=== PATIENT | male | born 1970 | race Caucasian/White ===

== ENCOUNTER → 2022-02-28 15:48 | Outpatient (CLI) | payer OTHER, SELFPAY ==
--- NOTE | ~2022-02-28 | MR_ITS ---
EXAMINATION: MR knee LT wo con DATE: 02/28/2022 16:53 INDICATION: Left knee pain. TECHNIQUE: Magnetic resonance imaging (MRI) of the left knee was performed without intravenous contra st. Sequences included axial PD-weighted FS FSE, coronal PD-weighted FSE and PD-weighted FS FSE, sagi ttal PD-weighted FSE, and sagittal T2-weighted FS FSE. COMPARISON: Left knee radiographs 02/10/2022 FINDINGS: Medial compartment: There is a complex tear involving body and posterior horn of medial meniscus with 8 mm paralabral cys t. There is shallow partial-thickness cartilage loss of tibial condyle and femoral condyle. Osteophyt es are noted. Lateral compartment: Lateral meniscus is normal. There is deep fissuring of tibial cartilage involving the central articul ar surface with mild subchondral edema-like marrow signal intensity. There is shallow partial-thickne ss cartilage loss of femoral condyle involving the central articular surface. Osteophytes are noted. Patellofemoral compartment: There is shallow partial-thickness cartilage loss of patella, worst at the medial facet. There is nic p partial thickness cartilage loss of central and medial trochlea. Ligaments and tendons: Some anterior cruciate ligament fibers are lax and less steep than Blumensaat line, consistent with t ear. Posterior cruciate ligament is normal. Medial collateral ligament is normal. There are changes o f prior sprain of fibular collateral ligament characterized by thickening and increased signal intens ity proximally. There is mild patellar tendinopathy. Fluid: There is a moderate-sized knee joint effusion. There is trace fluid in a Dupont's cyst. There is mild prepatellar and superficial infrapatellar bursitis. IMPRESSION: 1. Lax anterior cruciate ligament fibers, likely at least a partial tear. Correlate with physical exa m. 2. Moderate chondrosis of patellofemoral compartment and mild chondrosis of medial and lateral compar tments. 3. Tear of medial meniscus. 4. Moderate-sized knee joint effusion. Reviewed, dictated and finalized at location A. IMPRESSION: 1. Lax anterior cruciate ligament fibers, likely at least a partial tear. Corre late with physical exam. 2. Moderate chondrosis of patellofemoral compartment and mild chondrosis of med ial and lateral compartments. 3. Tear of medial meniscus. 4. Moderate-sized knee joint effusion.
== END ==
PROVIDERS: PCP Orthopaedic Surgery; Visit Provider Orthopaedic Surgery
DX: M71.22 Synovial cyst of popliteal space [Baker], left knee (principal); M71.562 Other bursitis, not elsewhere classified, left knee; M25.462 Effusion, left knee; S83.242A Other tear of medial meniscus, current injury, left knee, initial encounter
CPT/HCPCS: 73721

== ENCOUNTER 2022-03-17 12:07 | Outpatient (CLI) | payer OTHER, SELFPAY ==
--- NOTE | 2022-03-17 15:15 | ECG_ITS ---
Measurements Intervals [place] Rate: 73 P: 67 KS: 126 QRS: 70 QRSD: 110 T: 76 QT: 396 QTc: 439 Interpretive Statements SINUS RHYTHM NORMAL ECG NO PREVIOUS ECG AVAILABLE FOR COMPARISON Electronically Signed On 03-18-2022 16:35:25 CDT by Jay Jay Santos M.D.
== END 2022-03-17 12:08 | disposition home or self-care (01) ==
PROVIDERS: PCP Family Medicine; Visit Provider Orthopaedic Surgery
DX: Z01.810 Encounter for preprocedural cardiovascular examination (principal); E78.5 Hyperlipidemia, unspecified; I10 Essential (primary) hypertension
CPT/HCPCS: 93005

== ENCOUNTER 2022-03-22 01:06 | Day surgery (SDC) | payer OTHER, SELFPAY ==
[2022-03-16 09:30] VITALS: BMI 40.6
--- NOTE | 2022-03-16 09:31 | PC.NURSE ---
Report to the Outpatient Waiting Room, entrance under the green pavilion located off [facility], at time _1130_ on date _[id number]_. OR Time: _130pm__. - You and your visitor will be asked a series of questions to screen for COVID 19 for your protection. - Only one visitor is allowed at this time. - The patient visitor is requested to leave or wait in car when not with patient. - A mask is required within the hospital. Patients may have clear liquids (water, carbonated beverages, clear teas, apple juice) until 3 hours prior to surgery with a maximum of 20 ounces. - No food from midnight until time of surgery Take the following medications with a SIP of water the morning of surgery: None Medications to discontinue per physician ___None Date to take last dose Please no make-up, nail estonian, hairspray, perfume, deodorant, or body powder the day of surgery. No jewelry (including any body piercings) or valuables the day of surgery, leave them at home. Please take a shower or bath the night before, or the morning of, surgery with an antibacterial soap. Wear comfortable, loose fitting clothing. - Jewelry must be removed prior to entering the operating room. Rings and piercings that are not removed may be cut off. - The hospital will not accept responsibility for valuables. - Please leave all valuables, including medications, at home the day of surgery. If you are going home after surgery, a licensed driver/guide must drive you home. - NO public transportation without another adult. - We recommend that an adult stay with you for 24 hours following discharge. - We also recommend that you do not drive, make important decision, drink alcoholic beverages, or take any drugs that were not prescribed by your health care provider for at least 24 hours after your discharge time. Follow any additional instructions given to you from your surgeon. If you or anyone in your household have experienced Covid symptoms in the past week, please notify your surgeon or the nurse liaison at the phone number below for possible testing. Telephone instructions given to ___Patient and asked if any additional questions and then verbalized understanding. Patient advised to call surgeon office or pre surgery nurse liaison [phone] if any additional questions.
[2022-03-22] VITALS (7 sets, daily range): BP systolic 146–171; BP diastolic 81–110; PULSE 59–77; RESP 16–18; TEMP 36.2–36.8; O2SAT 94–100
--- NOTE | 2022-03-22 07:11 | WPDHPUPDATE1 ---
History and Physical Update Update Date/Time: 03/22/22 07:11 History and Physical has been reviewed, including an updated exam of the patient. There are NO changes in the patient's condition. Risks, benefits, and alternatives have been discussed and questions answered. Patient agrees to proceed with procedure.
[2022-03-22] MEDS: LACTATED RINGERS 1,000 ML 30 ML IV CONT (09:15)
--- NOTE | 2022-03-22 09:20 | P.PNAN_ITS ---
Anes - Initial Pre Proc Eval Procedure: Operation Date: 03/22/22 10:30 Proposed Procedures p Left Knee Arthroscopy - Leif Krishnan MD Date/Time: 03/22/22 09:20 Surgeon: Leif Krishnan MD Pre Op Diagnosis: left knee medial meniscus tear Patient Data Age: 52 Gender: M Height: 2.01 m Weight: 163.6 kg Allergies Allergy/AdvReac Type Severity Reaction Status Date / Time codeine AdvReac Unknown nightmares, Verified 03/21/22 16:46 extreme internal ear itching Home Medications Medication Instructions Recorded Confirmed Type atorvastatin 10 mg tablet 10 mg PO HS 03/16/22 03/16/22 History diclofenac sodium 75 mg 75 mg PO HS 03/16/22 03/16/22 History tablet,delayed release lisinopril 20 mg tablet 20 mg PO HS 03/16/22 03/16/22 History Patient hx anesthesia problems: other (awakens angry) Family hx anesthesia problems: none Results Review: All pre-operative results and documents have been reviewed as part of the pre- operative evaluation. FORMERLY [facility], [facility] Past Medical History Medical History HLD (hyperlipidemia) IFG (impaired fasting glucose) Polyarthralgia Rheumatoid arthritis Seasonal allergies Seizures Sleep apnea Tobacco use Vision abnormalities Surgical History Surgical History History of left knee surgery 1991-Dr. Erwin, meniscus repair, repair meniscus again by Dr. Mccloud History of right knee surgery Has had 5 surgeries total including ACL and meniscus repairs Family History Family History Other Arthritis Diabetes mellitus Hypertension Malignant neoplasm Social History Social History Smoking packs per day: 1.5 Smoking cigarettes per day: 30.0 Years smoked: 30 Smoking pack-years: 45.00 Smoking status: Current every day smoker Tobacco type: cigarettes Second hand tobacco smoke exposure: Yes Alcohol intake: current Alcohol use details: rare Substance use: current Substance use type: marijuana Living arrangements: with family Gender identity (if verbalized by the patient): Male Sexual Orientation (if Verbalized by the Patient): Straight or Heterosexual Spiritual care concerns: No Anes - Eval Final PreProcedure Day of Procedure 03/22/22 09:20 Patient weight: morbidly obese Heart: regular rate and rhythm Lungs: decreased breath sounds Airway: Mallampati scale class II Neurological: alert and oriented Last oral intake: >/= 8 hours ASA classification: III Emergent: no Anesthetic plan: proceed Anesthesia type and monitoring: general LMA and standard monitoring Results Review: All pre-operative results and documents have been reviewed as part of the pre- operative evaluation. Informed Consent: The patient's anesthetic plan and its attendant risks and benefits were discussed with the patient/family/POA. Questions were solicited and answers provided to the satisfaction of the patient/family/POA.
[2022-03-22] MEDS: CELECOXIB 200 MG CAPSULE PO (10:00)
[2022-03-22] MEDS: ACETAMINOPHEN 500 MG TABLET 1000 MG PO (10:00)
[2022-03-22] MEDS: MIDAZOLAM HCL (*CRX) 2 MG/2 ML VIAL IV PUSH (10:00)
[2022-03-22] MEDS: ceFAZolin 3 GM/D5W 100 ML 100 ML IVPB (10:23)
[2022-03-22] MEDS: fentaNYL CITRATE INJ (*CRX) 100 MCG/2 ML VIAL 25 MCG IV PUSH ×2 (12:17→12:22)
--- NOTE | 2022-03-22 12:24 | P.OP_ITS ---
Procedure Note - Detailed Date of Procedure 03/22/22 Pre-op Diagnosis left knee medial meniscus tear Post-op Diagnosis Same Procedure Performed LEFT KNEE SCOPE Surgeon Leif Krishnan MD Anesthesia General Description of Procedure PATIENT WAS TAKEN TO THE OR. LEFT LEG WAS PREPPED AND DRAPED STERILE. TROCARS WERE PLACED IN THE USUAL FASHION. CAMERA WAS INTRODUCED. THERE WAS CHONDROMALACIA TO THE PATELLA FEMORAL JOINT. THERE WAS A LOT OF SYNOVITIS IN ALL COMPARTMENTS. THE MEDIAL COMPARTMENT SHOWED CHONDROMALACIA TO THE MEDIAL FEMORAL CONDYLE. A SHAVER WAS USED TO PREFORM A CHONDROPLASTY. THERE WAS A COMPLEX MEDIAL MENISCUS TEAR. THE TEAR WAS RESECTED WITH A BITER AND A SHAVER DOWN TO A SMOOTH BASE. ABOUT 30% OF THE MENISCUS WAS REMOVED. THE ACL WAS PARTIALLY TORN BUT INTACT. THE LATERAL MENISCUS WAS NOT TORN. THE LAT COMPARTMENT HAD MINIMAL CHONDROMALACIA. CHONDROPLASTY WAS PREFORMED. A SYNOV ECTOMY WAS PREFORMED WELL. THE PATELLO FEMORAL JOINT UNDERWENT CHONDROPLASTY. THERE WAS GRADE 2 CHONDROMALACIA IN PART OF THE TROCHLEA AND PART OF THE PATELLA. SYNOVECTOMY WAS PREFORMED IN THE SUPERIOR MEDIAL COMPARTMENT. THE WOUNDS WERE APPROXIMATED WITH 4.0 NYLON. STERILE DRESSING WAS APPLIED. PATIENT WAS EXTUBATED. Estimated Blood Loss -10.0 Complications No immediate complications Condition Stable Disposition PACU
[2022-03-22] MEDS: oxyCODONE HCL (*CRX) 5 MG TAB IR PO (12:57)
== END 2022-03-22 13:50 | disposition home or self-care (01) ==
PROVIDERS: PCP Family Medicine; Visit Provider Orthopaedic Surgery
PROC: (CPT 29870; principal; 2022-03-22 10:30)
DX: M23.332 Other meniscus derangements, other medial meniscus, left knee (principal); M94.262 Chondromalacia, left knee; M25.862 Other specified joint disorders, left knee; M06.9 Rheumatoid arthritis, unspecified; E78.5 Hyperlipidemia, unspecified; F17.210 Nicotine dependence, cigarettes, uncomplicated; E66.01 Morbid (severe) obesity due to excess calories; Z68.41 Body mass index [BMI] 40.0-44.9, adult
CPT/HCPCS: 29881; 93005; A9270; J0690; J1100; J2250; J2405; J2704; J3010; J7120

== ENCOUNTER 2024-09-15 14:47 | Inpatient (IN) | payer SELFPAY ==
[2024-09-15] VITALS (52 sets, daily range): BP systolic 131–177; BP diastolic 72–121; PULSE 69–98; RESP 14–32; TEMP 36.6; O2SAT 85–100
--- NOTE | ~2024-09-15 | CT_ITS ---
EXAMINATION: CT diagnostic chest wo con DATE: 09/15/2024 17:35 INDICATION: Shortness of breath. Possible lung mass reported on 09/15/2024 portable AP chest TECHNIQUE: Computed tomography (CT) of the chest was performed without intravenous contrast. Automate d exposure control and iterative reconstruction technique were employed. Exam dose: 1075.37 mGy-cm t otal exam DLP. COMPARISON: None FINDINGS: There is prominent calcification at the first costochondral junctions, more prominent on th e right, likely accounting for the asymmetric increased density overlying the right first costal cart ilage junction on the right on the 09/15/2024 portable AP chest. Lung detail in particular is limited due to prominent respiratory motion. There are small bullae in both apical areas. There is an approximately 2 cm irregular area of hypodensity in the upper aspect of the superior segm ent of the right lower lobe, likely a calcified pulmonary granuloma. Comparison with any prior availa ble CT thorax examinations, if available anywhere, would be helpful to document stability. If not alis ilable, [address] chest follow-up is recommended. Nonspecific 5.5 mm nodular density, left upper lobe (series 4 image 52). 5 mm nodular density of the lingula (series 4 image 67) There is mild discoid atelectasis or scarring and suggestion of slight infiltrate in the lingula. No pulmonary infiltrate or consolidation is evident otherwise. No hilar or mediastinal mass lesion or lymphadenopathy. No thoracic aortic aneurysm. Normal heart size. No pericardial or pleural effusion. Normal morphology of the adrenal glands. Incidentally noted is cholelithiasis. Prominent degenerative spurring of the lower thoracic spine. No suspicious osteolytic or osteoblastic lesions are noted. IMPRESSION: Several lung opacities are noted as indicated above. Comparison with prior CT chest examination is recommended; if unavailable, [address] chest follow-up examination is recommended. Linear atelectasis or scarring and possible minimal infiltrate of lingula Cholelithiasis Reviewed, dictated and finalized at [facility]. Reviewed, dictated and finalized at [facility]. SPECIALIST IMPRESSION: Several lung opacities are noted as indicated above. Comparison with prior CT chest examination is recommended; if unavailable, [address] chest follow-up examination is recommended. Linear atelectasis or scarring and possible minimal infiltrate of lingula Cholelithiasis
--- NOTE | ~2024-09-15 | XR_ITS ---
EXAMINATION: XR chest 1V portable DATE: 09/19/2024 06:14 INDICATION: Pneumonia. TECHNIQUE: A single frontal view of the chest was obtained on 2 radiographs. COMPARISON: Chest single view 09/15/2024, chest CT 09/15/2024 FINDINGS: There is a 2 cm nodule in superior segment right lower lobe. No pleural effusion or pneumot horax. The heart size is normal. IMPRESSION: 1. 2 cm nodule in superior segment right lower lobe suspicious for primary bronchogenic carcinoma. No ncontrast low-dose chest CT is recommended in 1-3 months. Reviewed, dictated and finalized at [facility]. L FLOW COORDINATOR IMPRESSION: 1. 2 cm nodule in superior segment right lower lobe suspicious for primary bron chogenic carcinoma. Noncontrast low-dose chest CT is recommended in 1-3 months.
--- NOTE | ~2024-09-15 | XR_ITS ---
XR chest 1V portable DATE: 09/15/2024 15:31 INDICATION: Shortness of breath TECHNIQUE: Portable upright AP views on 09/15/2024 at 1521 1522 hours COMPARISON: None FINDINGS: Heart size is normal. No hilar or mediastinal enlargement. There is some asymmetric density in the right apical area prominent first costicartilage indication, but underlying pulmonary mass le josey is not excluded. PA and lateral chest radiographs are recommended, if not possible, consider CT thorax. Otherwise no pulmonary infiltrate or consolidation, pleural effusion or pulmonary congestion or pneum othorax is detected. No hilar or mediastinal enlargement. IMPRESSION: Asymmetric increased density overlying right apical area; this might represent asymmetric prominent right first costal cartilage calcification, but underlying pulmonary mass density is not e xcluded. Recommend PA and lateral chest radiographs or CT thorax Reviewed, dictated and finalized at [facility]. R HELPER IMPRESSION: Asymmetric increased density overlying right apical area; this migh t represent asymmetric prominent right first costal cartilage calcification, bu t underlying pulmonary mass density is not excluded. Recommend PA and lateral c hest radiographs or CT thorax
--- NOTE | 2024-09-15 15:11 | ECG_ITS ---
Test Date: 2024-09-15 15:13:12 Measurements Intervals [place] Rate: 96 P: 75 OH: 150 QRS: 59 QRSD: 94 T: 74 QT: 339 QTc: 430 Interpretive Statements SINUS RHYTHM POSSIBLE LEFT ATRIAL ENLARGEMENT [-0.1mV P WAVE IN V1/V2] No previous ECG available for comparison Electronically Signed On 09-15-2024 18:40:39 PRODUCTION WELDER by Sofia Terrell M.D.
[2024-09-15 15:27] LABS: Basophils Absolute Auto 0.1 K/mm3 (0.0-0.1); Basophils Percent Auto 0.6 % (0.2-1.2); Eosinophils Absolute Auto 0.4 K/mm3 (0-0.3); Eosinophils Percent Auto 3.7 % (0-4.4); Hematocrit 59.8 % (42.0-52.0); Hemoglobin 19.1 g/dL (14.0-18.0); Immature Granulocyte Absolute 0.04 K/mm3 (0.00-0.031); Immature Granulocyte Percent A 0.4 % (0-0.5); Lymphocytes Absolute Auto 1.06 K/mm3 (0.9-3.2); Lymphocytes Percent Auto 10.1 % (18.3-44.2); Mean Corpuscular HGB Conc 31.9 g/dl (32-36); Mean Corpuscular Hemoglobin 30.8 pg (26-34); Mean Corpuscular Volume 96.3 fl (80-100); Mean Platelet Volume 9.8 fl (7.4-10.4); Monocytes Absolute Auto 0.7 K/mm3 (0.1-0.6); Monocytes Percent Auto 6.9 % (2.6-8.5); Neutrophils Absolute Auto 8.2 K/mm3 (1.3-6.7); Neutrophils Percent Auto 78.3 % (45.5-73.1); Platelet Count Result 208 k/mm3 (150-375); Red Blood Count 6.21 M/mm3 (4.6-6.20); Red Cell Distribution Width 13.9 % (11.5-14.5); White Blood Count 10.5 K/mm3 (4.5-10.0)
[2024-09-15 15:36] LABS: Alanine Aminotransferase 26 U/L (6-50); Albumin Level 4.3 g/dL (3.5-5.1); Alkaline Phosphatase 121 U/L (38-126); Anion Gap 1 mmol/L (4-12); Aspartate Amino Transferase 26 U/L (17-59); Bilirubin,Total 0.9 mg/dL (0.2-1.3); Blood Urea Nitrogen 13 mg/dL (9-20); Carbon Dioxide 36 mmol/L (22-30); Chloride 98 mmol/L (98-107); Estimated Glomerular Filt Rate > 60; Glucose 134 mg/dL (65-110); Potassium 4.7 mmol/L (3.4-5.0); Sodium 135 mmol/L (137-145)
[2024-09-15 15:38] LABS: Prothrombin Time 13.1 Seconds (11.1-14.7)
[2024-09-15 15:39] LABS: Partial Thromboplastin Time 30.6 Seconds (22.3-36.8)
[2024-09-15] MEDS: ALBUTEROL SULFATE NEB 2.5 MG/3 ML INH 15 MG INHALATION (15:39)
[2024-09-15] MEDS: IPRATROPIUM BR 0.02% INH SOLN 0.5 MG/2.5 ML VIAL 1.5 MG INHALATION (15:39)
[2024-09-15 15:44] LABS: NT Pro B Type Natriuretic Pept 91 pg/mL (19.9-100)
[2024-09-15 15:50] LABS: Alveolar/Arterial O2 Gradient 468.4 mmHg; Base Excess ABG 2.6 mEq/l (+/-2.0); Fractional Inspired Oxygen 100 %; Oxygen Content ABG 28.4 %vol (16.0-22.0); Oxygen Saturation ABG 99.4 % (95.0-100.0); Oxyhemoglobin 96.3 % THb (90.0-100.0); PO2 ABG 252.3 mmHg (80.0-100.0); PO2 FiO2 Ratio Arterial Blood 2.52 %; Total Hemoglobin 20.6 g/dL (12.0-18.0)
[2024-09-15 15:54] LABS: pH ABG 7.225 (7.350-7.450)
[2024-09-15 15:55] LABS: Device NON-REBREATHER MASK; Modified Allen's Test Pass; PCO2 ABG 86.5 mmHg (35.0-45.0); Site Drawn RIGHT RADIAL
[2024-09-15] MEDS: methylPREDNISolone SOD SUCC 125 MG VIAL IV PUSH (16:01)
[2024-09-15 16:10] LABS: Influenza A QL RT-PCR Negative (Negative); Influenza B QL RT-PCR Negative (Negative); RSV RNA, RT-PCR Negative (Negative); SARS-CoV-2 RNA PCR Negative (Negative)
--- NOTE | 2024-09-15 17:38 | ED.SOB ---
HPI - SOB/Dyspnea General Chief Complaint: Shortness of Breath/Dyspnea Stated Complaint: Can't breath, congestion/phlegm for about a month Time Seen by Provider: 09/15/24 15:07 History of Present Illness HPI Narrative: Patient is a 54-year-old male who presents ER with shortness of breath. Worsening over last month but markedly so over last couple of days. He is a 2 pack-a-day smoker has been tapering down. Unable to smoke any cigarettes today. No fevers or chills or sweats. No chest pain. Extreme dyspnea with exertion. Found to be hypoxic in the 60s on arrival to the ER. Related Data Home Medications ?Medication ?Instructions ?Recorded ?Confirmed ?Last Taken ?Type atorvastatin 10 mg tablet 10 mg PO HS 03/16/22 04/11/22 Unknown History diclofenac sodium 75 mg 75 mg PO HS 03/16/22 04/11/22 Unknown History tablet,delayed release Allergies Allergy/AdvReac Type Severity Reaction Status Date / Time codeine AdvReac Unknown nightmares, Verified 09/15/24 16:00 extreme internal ear itching Review of Systems Review of Systems: All systems reviewed & are unremarkable except as noted in HPI and below Constitutional: Constitutional: Reports no additional constitutional complaints ENT: Reports system reviewed and no additional complaints, except as documented Cardiovascular: Cardiovascular: Reports no additional cardiovascular complaints Respiratory: Respiratory: Reports cough, Reports dyspnea and Reports wheezing Gastrointestinal: Gastrointestinal: Reports no additional gastrointestinal complaints Musculoskeletal: Musculoskeletal: Reports no additional musculoskeletal complaints PMFSH Past Medical History Medical History HLD (hyperlipidemia) IFG (impaired fasting glucose) Polyarthralgia Rheumatoid arthritis Seasonal allergies Seizures Sleep apnea Tobacco use Vision abnormalities Surgical History Surgical History History of left knee surgery 1991-Dr. Erwin, meniscus repair, repair meniscus again by Dr. Mccloud History of right knee surgery Has had 5 surgeries total including ACL and meniscus repairs Status post arthroscopic knee surgery Family History Family History Other Arthritis Diabetes mellitus Hypertension Malignant neoplasm Social History Social History Smoking packs per day: 1.5 Smoking cigarettes per day: 30.0 Years smoked: 40 Smoking pack-years: 60.00 Smoking status: Current every day smoker Tobacco type: cigarettes Second hand tobacco smoke exposure: Yes Alcohol intake: current Alcohol use details: rare Substance use: current Substance use type: marijuana Living arrangements: with family Occupation/Education: occupation Gender identity (if verbalized by the patient): Male Sexual Orientation (if Verbalized by the Patient): Straight or Heterosexual Spiritual care concerns: No Exam Narrative: GENERAL: Well-appearing, well-nourished, and in no acute distress. HEAD: Normocephalic, atraumatic. ENT: Mucous membranes moist. CHEST: Coarse inspiratory and expiratory wheezing bilaterally with increased respiratory rate. HEART: Regular rate and rhythm. Normal peripheral pulses. ABDOMEN: Soft, nontender, nondistended. EXTREMITIES: Normal range of motion. No edema. SKIN: Warm, dry, no rash. NEURO: Alert and oriented x3. PSYCH: Normal mood and affect. Course Course Emergency Course: Moving air better after hour long nebulizer treatment however still hypoxic. Placed on BiPAP for hypoxia and comfort. chest x-ray with concern for possible mass. Will perform low dose CT scan. Patient felt to be COPD exacerbation and admitted to hospitalist service with scheduled nebs and steroids. Vital Signs Vital signs: Vital Signs Pulse Rate 96 09/15/24 15:11 Pulse Oximetry 96 09/15/24 15:11 Oxygen Delivery Non-Rebreather Mask 09/15/24 15:11 Oxygen Flow Rate 15 09/15/24 15:11 Temperature 97.8 F 09/15/24 15:16 Pulse Rate 88 09/15/24 17:35 Respiratory Rate 32 H 09/15/24 17:35 Blood Pressure 140/86 09/15/24 17:15 Pulse Oximetry 96 09/15/24 17:35 Oxygen Delivery BiPAP 09/15/24 17:35 Oxygen Flow Rate 15 09/15/24 17:15 MDM - SOB/Dyspnea Lab Data 09/15/24 15:22 09/15/24 15:22 Labs: Lab Results 09/15/24 09/15/24 Range/Units 15:22 15:30 WBC 10.5 H (4.5-10.0) K/mm3 RBC 6.21 H (4.6-6.20) M/mm3 Hgb 19.1 H (14.0-18.0) g/dL Hct 59.8 H (42.0-52.0) % MCV 96.3 (80-100) fl MCH 30.8 (26-34) pg MCHC 31.9 L (32-36) g/dl RDW 13.9 (11.5-14.5) % Plt Count 208 (150-375) k/mm3 MPV 9.8 (7.4-10.4) fl Immature Gran % (Auto) 0.4 (0-0.5) % Neut % (Auto) 78.3 H (45.5-73.1) % Lymph % (Auto) 10.1 L (18.3-44.2) % Gillespie % (Auto) 6.9 (2.6-8.5) % Eos % (Auto) 3.7 (0-4.4) % Baso % (Auto) 0.6 (0.2-1.2) % Lymph # (Auto) 1.06 (0.9-3.2) K/mm3 Gillespie # (Auto) 0.7 H (0.1-0.6) K/mm3 Eos # (Auto) 0.4 H (0-0.3) K/mm3 Baso # (Auto) 0.1 (0.0-0.1) K/mm3 Abs Immat Gran (auto) 0.04 H (0.00-0.031) K/mm3 Absolute Neuts (auto) 8.2 H (1.3-6.7) K/mm3 Absolute Nucleated RBC 0.000 (0.0-0.012) K/mm3 Nucleated RBC % 0.0 (0.0-0.2) % PT 13.1 (11.1-14.7) Seconds INR 1.0 APTT 30.6 (22.3-36.8) Seconds Sodium 135 L (137-145) mmol/L Potassium 4.7 (3.4-5.0) mmol/L Chloride 98 (98-107) mmol/L Carbon Dioxide 36 H (22-30) mmol/L Anion Gap 1 L (4-12) mmol/L BUN 13 (9-20) mg/dL Creatinine 0.70 (0.7-1.3) mg/dL Estim Creat Clear Calc Not Reportable Estimated GFR > 60 (59 - ) Glucose 134 H (65-110) mg/dL Calcium 9.0 (8.4-10.2) mg/dL Total Bilirubin 0.9 (0.2-1.3) mg/dL AST 26 (17-59) U/L ALT 26 (6-50) U/L Alkaline Phosphatase 121 (38-126) U/L NT-Pro-B Natriuret Pep 91 (19.9-100) pg/mL Total Protein 9.0 H (6.3-8.2) g/dL Albumin 4.3 (3.5-5.1) g/dL Influenza A (RT-PCR) Negative (Negative) Influenza B (RT-PCR) Negative (Negative) RSV (RT-PCR) Negative (Negative) SARS-CoV-2 RNA (RT-PCR) Negative (Negative) ABG Data ABG results: 09/15/24 15:40 Puncture Site Right radial ABG pH 7.225 L* ABG pCO2 86.5 H* ABG pO2 252.3 H ABG PO2/FiO2 Ratio 2.52 ABG HCO3 35.0 H ABG O2 Saturation 99.4 ABG O2 Content 28.4 H ABG Base Excess 2.6 A-a Gradient 468.4 Oxyhemoglobin 96.3 Total Hemoglobin 20.6 H O2 Delivery Device Non-rebreather mask O2 Liters/Min 15.0 FiO2 100 Imaging Data Radiologist's impression: ITS Impressions Chest X-Ray 09/15/24 15:52 IMPRESSION: Asymmetric increased density overlying right apical area; this might represent asymmetric prominent right first costal cartilage calcification, but underlying pulmonary mass density is not excluded. Recommend PA and lateral chest radiographs or CT thorax Chest CT 09/15/24 17:47 IMPRESSION: Several lung opacities are noted as indicated above. Comparison with prior CT chest examination is recommended; if unavailable, [address] chest follow-up examination is recommended. Linear atelectasis or scarring and possible minimal infiltrate of lingula Cholelithiasis Discharge Plan Discharge Clinical Impression: COPD exacerbation, Acute respiratory failure Patient Disposition: Still a Patient Condition: Stable
[2024-09-15] MEDS: methylPREDNISolone SOD SUCC 125 MG VIAL 60 MG IV PUSH (18:14)
--- NOTE | 2024-09-15 19:34 | P.HP_ITS ---
H&P: HPI History of Present Illness Date/Time: 09/15/24 19:34 Chief Complaint: Shortness of breath Narrative: This is a 54-year-old male with past medical history significant for obesity, obstructive sleep apnea, COPD/emphysema, tobacco dependence, patient used to smoke 2 packs of cigarettes daily down to 1 pack of cigarettes daily, presents to the emergency room with sudden onset of shortness of breath who is at bedside provides most of the history as patient is on BiPAP continues at this time, according to patient has had shortness of breath for about a month or so with cough and sputum production of thick yellow sputum. Patient is placed on BiPAP after ABG findings pH of 7.25, pCO2 86, PO2 of 252. CT of chest significant for opacities. Patient has been admitted for further evaluation ma nagement and treatment. R chest 1V portable DATE: 09/15/2024 15:31 INDICATION: Shortness of breath TECHNIQUE: Portable upright AP views on 09/15/2024 at 1521 1522 hours COMPARISON: None FINDINGS: Heart size is normal. No hilar or mediastinal enlargement. There is some asymmetric density in the right apical area prominent first costicartilage indication, but underlying pulmonary mass lesion is not excluded. PA and lateral chest radiographs are recommended, if not possible, consider CT thorax. Otherwise no pulmonary infiltrate or consolidation, pleural effusion or pulmonar y congestion or pneumothorax is detected. No hilar or mediastinal enlargement. IMPRESSION: Asymmetric increased density overlying right apical area; this might represent asymmetric prominent right first costal cartilage calcification, but underlying pulmonary mass density is not excluded. Recommend PA and lateral chest radiographs or CT thorax EXAMINATION: CT diagnostic chest wo con DATE: 09/15/2024 17:35 INDICATION: Shortness of breath. Possible lung mass reported on 09/15/2024 portable AP chest TECHNIQUE: Computed tomography (CT) of the chest was performed without i ntravenous contrast. Automated exposure control and iterative reconstruction technique were employed. Exam dose: 1075.37 mGy-cm total exam DLP. COMPARISON: None FINDINGS: There is prominent calcification at the first costochondral junctions, more prominent on the right, likely accounting for the asymmetric increased density overlying the right first costal cartilage junction on the right on the 09/15/2024 portable AP chest. Lung detail in particular is limited due to prominent respiratory motion. There are small bullae in both apical areas. There is an approximately 2 cm irregular area of hypodensity in the upper aspect of the superior segment of the right lower lobe, likely a calcified pulmonary granuloma. Comparison with any prior available CT thorax examinations, if available anywhere, would be helpful to document stability. If not available, [address] chest follow-up is recommended. Nonspecific 5.5 mm nodular density, left upper lobe (series 4 image 52). 5 mm nodular density of the lingula (series 4 image 67) There is mild discoid atelectasis or scarring and suggestion of slight infiltrate in the lingula. No pulmonary infiltrate or consolidation is evident otherwise. No hilar or mediastinal mass lesion or lymphadenopathy. No thoracic aortic aneurysm. Normal heart size. No pericardial or pleural effusion. Normal morphology of the adrenal glands. Incidentally noted is cholelithiasis. Prominent degenerative spurring of the lower thoracic spine. No suspicious osteolytic or osteoblastic lesions are noted. IMPRESSION: Several lung opacities are noted as indicated above. Comparison with prior CT chest examination is recommended; if unavailable, [address] chest follow-up examination is recommended. Linear atelectasis or scarring and possible minimal infiltrate of lingula Cholelithiasis Reviewed, dictated and finalized at [facility]. Review of Systems Review of Systems: ROS unobtainable: Yes unobtainable due to medical condition (Respiratory failure on BiPAP) [facility] Past Medical History Medical History HLD (hyperlipidemia) IFG (impaired fasting glucose) Polyarthralgia Rheumatoid arthritis Seasonal allergies Seizures Sleep apnea Tobacco use Vision abnormalities Surgical History Surgical History History of left knee surgery 1991-Dr. Erwin, meniscus repair, repair meniscus again by Dr. Mccloud History of right knee surgery Has had 5 surgeries total including ACL and meniscus repairs Status post arthroscopic knee surgery Family History Family History Other Arthritis Diabetes mellitus Hypertension Malignant neoplasm Social History Social History Smoking packs per day: 1.5 Smoking cigarettes per day: 30.0 Years smoked: 40 Smoking pack-years: 60.00 Smoking status: Current every day smoker Tobacco type: cigarettes Second hand tobacco smoke exposure: Yes Alcohol intake: current Alcohol use details: rare Substance use: current Substance use type: marijuana Living arrangements: with family Occupation/Education: occupation Gender identity (if verbalized by the patient): Male Sexual Orientation (if Verbalized by the Patient): Straight or Heterosexual Spiritual care concerns: No Meds Home Medications and Allergies Home Medications ?Medication ?Instructions ?Recorded ?Confirmed ?Type atorvastatin 10 mg tablet 10 mg PO HS 03/16/22 04/11/22 History diclofenac sodium 75 mg 75 mg PO HS 03/16/22 04/11/22 History tablet,delayed release aspirin 325 mg tablet 325 mg PO DAILY DVT PROPHYLAXIS 03/22/22 04/11/22 Rx #14 tabs hydrocodone 5 mg-acetaminophen 325 1 tablet PO Q8H PRN pain #30 tabs 03/22/22 04/11/22 Rx mg tablet lisinopril 30 mg tablet 30 mg PO DAILY #90 tabs 03/22/22 04/11/22 Rx Allergies Allergy/AdvReac Type Severity Reaction Status Date / Time codeine AdvReac Unknown nightmares, Verified 09/15/24 16:00 extreme internal ear itching Vital Signs Vital Signs - 24 hr 09/15/24 15:11 09/15/24 15:11 09/15/24 15:16 Temperature 97.8 F Pulse Rate 96 96 Respiratory Rate 22 H Blood Pressure 146/88 H Pulse Oximetry 96 96 Oxygen Delivery Non-Rebreather Mask Oxygen Flow Rate 15 09/15/24 15:30 09/15/24 15:45 09/15/24 16:30 Temperature Pulse Rate 96 95 91 Respiratory Rate 23 H 22 H 18 Blood Pressure 149/72 H 138/74 Pulse Oximetry 95 95 Oxygen Delivery Oxygen Flow Rate 09/15/24 16:43 09/15/24 16:44 09/15/24 17:15 Temperature Pulse Rate 88 Respiratory Rate 20 Blood Pressure Pulse Oximetry 94 85 L Oxygen Delivery High Flow Nasal Cannula Nasal Cannula Oxygen Flow Rate 5 6 09/15/24 17:15 09/15/24 17:15 09/15/24 17:35 Temperature Pulse Rate 88 88 Respiratory Rate 18 32 H Blood Pressure 140/86 Pulse Oximetry 91 89 L 96 Oxygen Delivery Non-Rebreather Mask BiPAP Oxygen Flow Rate 15 09/15/24 18:04 09/15/24 18:16 09/15/24 18:31 Temperature Pulse Rate 85 84 88 Respiratory Rate 18 17 20 Blood Pressure 142/80 H 152/76 H 143/78 H Pulse Oximetry 96 96 93 Oxygen Delivery Oxygen Flow Rate 09/15/24 18:46 Temperature Pulse Rate 87 Respiratory Rate 17 Blood Pressure 159/80 H Pulse Oximetry 95 Oxygen Delivery Oxygen Flow Rate Exam Narrative: Patient is sitting in stretcher Const: General: comfortable, no acute distress, well developed, alert, awake and obese Nutritional Appearance: obese Orientation/consciousness: patient obtunded (Initially) Other: Awake alert oriented x3 HENMT: Head: normal to inspection, normocephalic and atraumatic Ears: hearing grossly normal bilaterally Face/Nose/Sinus: normal facial exam Face and sinus: normal facial exam Eyes: General: appearance normal, both eyes and all related structures Pupils: Equal, round and reactive pupils present EOM: EOMs intact bilaterally Neck: Neck: full ROM, no lymphadenopathy and no JVD Thyroid: thyroid normal Lymphatic: no lymphadenopathy noted Resp: Effort & Inspection: normal respiratory effort and able to speak in complete sentences Auscultation: clear to auscultation bilaterally and dimi nished lung sounds Cardio: Jugular venous distension: no JVD Rate: regular rate Rhythm: regular rhythm Heart sounds: S1 normal heart sound present and S2 normal heart sound present GI: GI Palp: Yes Soft to palpation and Yes No hepatosplenomegaly present : General: Yes deferred Skin: Rashes: no rashes Wounds: no wounds Neuro: General: patient oriented x3 and CN's II-XI intact bilaterally Cranial nerves: Yes CN's II-XII intact bilaterally and Yes Equal, round and reactive pupils present Cognition (Neuro): normal cognition Speech: normal speech Gait exam (Neuro): Normal gait present Motor exam (neuro): 5/5 motor strength present throughout Extrem: General: normal to inspection, full ROM, no joint enlargement and no pedal edema H&P: Results Labs Labs: Short CBC 09/15/24 Range/Units 15:22 WBC 10.5 H (4.5-10.0) K/mm3 Hgb 19.1 H (14.0-18.0) g/dL Hct 59.8 H (42.0-52.0) % Plt Count 208 (150-375) k/mm3 [facility] 09/15/24 15:22 Sodium 135 L Potassium 4.7 Chloride 98 Carbon Dioxide 36 H BUN 13 Creatinine 0.70 Glucose 134 H Calcium 9.0 Liver Function 09/15/24 Range/Units 15:22 Total Bilirubin 0.9 (0.2-1.3) mg/dL AST 26 (17-59) U/L ALT 26 (6-50) U/L Alkaline Phosphatase 121 (38-126) U/L Albumin 4.3 (3.5-5.1) g/dL Assessment and Plan Assessment and plan (1) Acute hypercapnic respiratory failure: Code(s): J96.02 - Acute respiratory failure with hypercapnia Status: Acute Assessment and Plan: Admit to IMU Patient currently on continuous BiPAP Continue to monitor ABG's (2) COPD exacerbation: Code(s): J44.1 - Chronic obstructive pulmonary disease with (acute) exacerbation Status: Acute Assessment and Plan: Solu-Medrol, breathing treatments. (3) HTN (hypertension): Code(s): I10 - Essential (primary) hypertension Status: Acute Assessment and Plan: Resume home meds as needed. (4) IFG (impaired fasting glucose): Code(s): R73.01 - Impaired fasting glucose Status: Acute Assessment and Plan: Continue to monitor (5) HLD (hyperlipidemia): Code(s): E78.5 - Hyperlipidemia, unspecified Status: Acute Assessment and Plan: On a statin (6) Tobacco use: Code(s): Z72.0 - Tobacco use Status: Acute Assessment and Plan: Nicotine patch as needed (7) KAL (obstructive sleep apnea): Code(s): G47.33 - Obstructive sleep apnea (adult) (pediatric) Status: Acute Assessment and Plan: Currently on BiPAP (8) Obesity (BMI 35.0-39.9 without comorbidity): Code(s): E66.9 - Obesity, unspecified Status: Acute Assessment and Plan: Lifestyle and diet modifications Hospitalist MIPS Advance Care Plan I have confirmed that the patient's Advanced Care Plan is present, code status is documented, or surrogate decision maker is listed in patient medical record.: Yes Medication Reconciliation I have utilized all available resources to obtain, update and review the patients current medications (includes all prescriptions, OTC, herbals, cannabis, and nutritional supplements).: Yes
[2024-09-15] MEDS: IPRATROPIUM 0.5 MG/ALBUTEROL SULFATE 2.5 MG AMPUL.NEB 3 ML INHALATION (20:55)
[2024-09-15 21:20] LABS: Carboxyhemoglobin 2.2 % THb (0-2.0); Fractional Inspired Oxygen 50 %; HCO3 ABG 36.4 mEq/l (22.0-26.0); Methemoglobin ABG 0.6 %THb (0-1.5); Oxygen Content ABG 27.2 %vol (16.0-22.0); Oxygen Saturation ABG 93.4 % (95.0-100.0); Oxyhemoglobin 93.3 % THb (90.0-100.0); PO2 ABG 84.2 mmHg (80.0-100.0); PO2 FiO2 Ratio Arterial Blood 1.68 %; Reduced Hemoglobin 3.9 %THb (0-5.0); Total Hemoglobin 20.8 g/dL (12.0-18.0)
[2024-09-15 21:25] LABS: PCO2 ABG 94.5 mmHg (35.0-45.0); Site Drawn RIGHT RADIAL; pH ABG 7.204 (7.350-7.450)
[2024-09-15 21:26] LABS: Device BIPAP; Expiratory Pressure 8 cmH2O; Inspiratory Pressure 16 cmH2O; Modified Allen's Test Pass
[2024-09-16] VITALS (34 sets, daily range): BP systolic 113–146; BP diastolic 65–120; PULSE 61–101; RESP 16–35; TEMP 36.5–37.3; O2SAT 92–99; BMI 40.4; BMI 40.2
[2024-09-16 02:24] LABS: Base Excess ABG -0.2 mEq/l (+/-2.0); Fractional Inspired Oxygen 50 %; HCO3 ABG 28.8 mEq/l (22.0-26.0); Oxygen Content ABG 27.1 %vol (16.0-22.0); Oxygen Saturation ABG 95.3 % (95.0-100.0); Oxyhemoglobin 94.9 % THb (90.0-100.0); PO2 ABG 86.8 mmHg (80.0-100.0); PO2 FiO2 Ratio Arterial Blood 1.74 %; Total Hemoglobin 20.3 g/dL (12.0-18.0)
[2024-09-16 02:27] LABS: Modified Allen's Test Pass; Site Drawn RIGHT RADIAL; pH ABG 7.285 (7.350-7.450)
[2024-09-16 02:28] LABS: Device NON-INVASIVE VENT; Non-Invasive Expiratory Pressure 10 CMH2O; Non-Invasive Inspiratory Pressure 18 CMH2O; Non-Invasive Vent Rate 22 /MIN
[2024-09-16] MEDS: IPRATROPIUM 0.5 MG/ALBUTEROL SULFATE 2.5 MG AMPUL.NEB 3 ML INHALATION ×4 (03:10→20:02)
--- NOTE | 2024-09-16 03:17 | ADMGEN ---
This patient, Ronnie Tadeo, was admitted to IMU Room 232-01. Patient/family oriented to hospital policies and general routines including ID bracelet, bed and alarms, visiting hours, pain management, procedures, bathroom and other care routines, personal items, smoking policy, room service/diet, and visiting hours. Information on how to activate the Rapid Response Team has been discussed. Patient/Family are encouraged to report perceived risks to care and to ask questions if they do not understand what they are told or what they should do.
[2024-09-16] MEDS: cefTRIAXone 2 GM/NS 100 ML 2 GM/100 ML BAG IVPB (03:36)
[2024-09-16] MEDS: methylPREDNISolone SOD SUCC 125 MG VIAL 60 MG IV PUSH ×4 (03:37→20:38)
[2024-09-16] MEDS: AZITHROMYCIN 500 MG/NS 250 ML 500 MG/250 ML BAG 250 MG IVPB (03:48)
[2024-09-16] MEDS: HYDROcodone/acetaminophen (*CRX) 5-325 MG TABLET 1 TAB PO ×2 (04:04→20:40)
[2024-09-16 10:07] LABS: Basophils Percent Auto 0.1 % (0.2-1.2); Eosinophils Percent Auto 0.1 % (0-4.4); Hematocrit 57.9 % (42.0-52.0); Hemoglobin 18.1 g/dL (14.0-18.0); Immature Granulocyte Absolute 0.05 K/mm3 (0.00-0.031); Immature Granulocyte Percent A 0.5 % (0-0.5); Lymphocytes Absolute Auto 0.47 K/mm3 (0.9-3.2); Lymphocytes Percent Auto 4.5 % (18.3-44.2); Mean Corpuscular HGB Conc 31.3 g/dl (32-36); Mean Corpuscular Hemoglobin 30.3 pg (26-34); Mean Platelet Volume 9.8 fl (7.4-10.4); Monocytes Absolute Auto 0.2 K/mm3 (0.1-0.6); Monocytes Percent Auto 1.7 % (2.6-8.5); Neutrophils Absolute Auto 9.6 K/mm3 (1.3-6.7); Neutrophils Percent Auto 93.1 % (45.5-73.1); Platelet Count Result 227 k/mm3 (150-375); Red Blood Count 5.97 M/mm3 (4.6-6.20); Red Cell Distribution Width 14.1 % (11.5-14.5); White Blood Count 10.3 K/mm3 (4.5-10.0)
[2024-09-16 10:18] LABS: Lactic Acid Reflex 1.7 mmol/L (0.7-2.0)
[2024-09-16 10:31] LABS: Alanine Aminotransferase 23 U/L (6-50); Alkaline Phosphatase 103 U/L (38-126); Anion Gap 5 mmol/L (4-12); Aspartate Amino Transferase 20 U/L (17-59); Bilirubin,Total 0.7 mg/dL (0.2-1.3); Blood Urea Nitrogen 25 mg/dL (9-20); CRP 1.8 mg/dL (<1.0); Calcium 8.8 mg/dL (8.4-10.2); Carbon Dioxide 35 mmol/L (22-30); Chloride 94 mmol/L (98-107); Estimated CRCL calculation 126 ml/min; Estimated Glomerular Filt Rate > 60; Glucose 202 mg/dL (65-110); Magnesium 2.1 mg/dL (1.6-2.3); Potassium 5.2 mmol/L (3.4-5.0); Sodium 134 mmol/L (137-145)
[2024-09-16 11:18] LABS: Procalcitonin 0.1 ng/mL
[2024-09-16 11:32] LABS: Thyroid Stimulating Hormone Reflex 0.093 uIU/mL (0.465-4.68)
[2024-09-16 14:08] LABS: Free T4 Free Thyroxine Reflex 1.23 ng/dL (0.78-2.19)
[2024-09-16 15:15] LABS: Total Triiodothyronine (T3) 1.03 NG/ML (0.97-1.69)
--- NOTE | 2024-09-16 16:01 | P.PNIM_ITS ---
Progress Note: A&P Assessment and Plan (1) Acute hypercapnic respiratory failure: Code(s): J96.02 - Acute respiratory failure with hypercapnia Status: Acute Assessment and Plan: Patient presents with SOB and was 96% requiring 15L NRB. ABG 7./86/252 on 15L NRB. CXR showing possible right apical mass. CT chest without contrast showing several lung opacities including a 2cm RLL calcified nodule possibly granuloma, linear atelectasis and cholelithiasis. He was started on BiPAP now at 18/10 with ABG showing 7.//87. BiPAP removed for meals. Will adjust settings and repeat ABG. Suspect related to COPD exacerbation worsened by untreated KAL. Pulmonary consult since he will probably need NV at discharge and close followup. (2) COPD exacerbation: Code(s): J44.1 - Chronic obstructive pulmonary disease with (acute) exacerbation Status: Acute Assessment and Plan: Patient with extensive smoking hx. Presents with SOB and found to have acute resp failure. Imaging and ABG as above. WBC 10K, PCT 0.1. CRP 1.8. Influenza, COVID and RSV PCR negative. He was started on IV Solu-Medrol and Duonebs. Improved air exchange and he appears more comfortable. Continue abx given the productive cough. Check urine Ag. Check for histo as well. Check sputum Change abx to levaquin (3) HTN (hypertension): Code(s): I10 - Essential (primary) hypertension Status: Acute Assessment and Plan: Patient's blood pressure was reviewed on 09/16 Blood pressure was elevated on admission felt related to resp failure. BP better controlled now. May have poorly controlled BP at home due to untreated KAL. Will hold lisinopril due to mildly elevated potassium. (4) KAL (obstructive sleep apnea): Code(s): G47.33 - Obstructive sleep apnea (adult) (pediatric) Status: Acute Assessment and Plan: As above. Patient will need apnea link when he is close to discahrge. (5) Rheumatoid arthritis: Code(s): M06.9 - Rheumatoid arthritis, unspecified Status: Acute Assessment and Plan: Patient has rheumatoid arthritis but is not on immune modulators. He only takes diclofenac which will continue. Add Protonix for gastric protection given he is on steroids and aspirin. Check rheumatoid factor. Consider RA could be contributing to his lung findings. (6) IFG (impaired fasting glucose): Code(s): R73.01 - Impaired fasting glucose Status: Acute Assessment and Plan: Patient has impaired fasting glucose noted on past medical history. Glucose elevated since being on steroids. Check A1c. Start sliding scale protocol (7) HLD (hyperlipidemia): Code(s): E78.5 - Hyperlipidemia, unspecified Status: Acute Assessment and Plan: LFTs are normal. Continue atorvastatin. (8) Tobacco use: Code(s): Z72.0 - Tobacco use Status: Acute Assessment and Plan: Patient was educated about the benefits of smoking cessation.. Plan DVT Prophylaxis - Lovenox Code status - Full Subjective Date/time seen: 09/16/24 16:01 Interval history: 54yo male with tobacco abuse, RA, seizures, HLD and HTN here for shortness fo breath. Patient tolerated the bipap here. He smokes 2ppd but has pj able to wean himself down to <1ppd. No hx of COPD. He has been tested for KAL but did not qualify for NIV but family state he has apnea frequently for the past 10 yrs. Patient with cough productive of yellow/white sputum. He has been SOB for yonis past few weeks but worse over the past 3 days. He does not have nebulizers or inhalers at home. He has RA treated with diclofenac but not been on immune modulators. No exposures to birds. Exam Narrative: AF 98.3 134/74 97 35 96% bipap Gen - NARD lying semirecumbent in bed with bipap in place. Chest - Coarse BS with inspiratory and expiratory wheezes. Good air exchange CV - RRR S1/S2; Tele showing no significant dysrhythmias Abd - Soft, obese, NT Ext - No pedal edema. 2+ PT pulses. No clubbing Neuro - Alert and oriented. Nonfocal exam. Psych - Nml mood and affect Skin - Warm and dry Objective Data Vital Signs Vital Signs: Vital Signs - 24 hr 09/15/24 16:30 09/15/24 16:43 09/15/24 16:44 Temperature Pulse Rate 91 88 Respiratory Rate 18 20 Blood Pressure 138/74 Pulse Oximetry 95 94 Oxygen Delivery High Flow Nasal Cannula Oxygen Flow Rate 5 Fraction of Inspired Oxygen 09/15/24 17:15 09/15/24 17:15 09/15/24 17:15 Temperature Pulse Rate 88 Respiratory Rate 18 Blood Pressure 140/86 Pulse Oximetry 85 L 91 89 L Oxygen Delivery Nasal Cannula Non-Rebreather Mask Oxygen Flow Rate 6 15 Fraction of Inspired Oxygen 09/15/24 17:35 09/15/24 18:04 09/15/24 18:16 Temperature Pulse Rate 88 85 84 Respiratory Rate 32 H 18 17 Blood Pressure 142/80 H 152/76 H Pulse Oximetry 96 96 96 Oxygen Delivery BiPAP Oxygen Flow Rate Fraction of Inspired Oxygen 09/15/24 18:31 09/15/24 18:46 09/15/24 18:47 Temperature Pulse Rate 88 87 81 Respiratory Rate 20 17 21 H Blood Pressure 143/78 H 159/80 H Pulse Oximetry 93 95 95 Oxygen Delivery Oxygen Flow Rate Fraction of Inspired Oxygen 09/15/24 19:00 09/15/24 19:01 09/15/24 19:15 Temperature Pulse Rate 88 87 83 Respiratory Rate 18 18 18 Blood Pressure 159/83 H Pulse Oximetry 96 97 97 Oxygen Delivery Oxygen Flow Rate Fraction of Inspired Oxygen 09/15/24 19:16 09/15/24 19:30 09/15/24 19:31 Temperature Pulse Rate 78 83 80 Respiratory Rate 19 19 19 Blood Pressure 156/91 H 162/87 H Pulse Oximetry 97 98 97 Oxygen Delivery Oxygen Flow Rate Fraction of Inspired Oxygen 09/15/24 19:45 09/15/24 19:46 09/15/24 20:00 Temperature Pulse Rate 82 86 81 Respiratory Rate 19 19 17 Blood Pressure 161/89 H Pulse Oximetry 100 100 100 Oxygen Delivery Oxygen Flow Rate Fraction of Inspired Oxygen 09/15/24 20:01 09/15/24 20:15 09/15/24 20:16 Temperature Pulse Rate 83 79 83 Respiratory Rate 17 17 18 Blood Pressure 145/85 H 160/85 H Pulse Oximetry 100 99 99 Oxygen Delivery Oxygen Flow Rate Fraction of Inspired Oxygen 09/15/24 20:30 09/15/24 20:31 09/15/24 20:45 Temperature Pulse Rate 80 83 87 Respiratory Rate 18 17 19 Blood Pressure 155/78 H Pulse Oximetry 95 95 90 Oxygen Delivery Oxygen Flow Rate Fraction of Inspired Oxygen 09/15/24 20:46 09/15/24 21:00 09/15/24 21:00 Temperature Pulse Rate 92 91 98 Respiratory Rate 18 19 20 Blood Pressure 177/121 H Pulse Oximetry 93 Oxygen Delivery Oxygen Flow Rate Fraction of Inspired Oxygen 09/15/24 21:01 09/15/24 21:15 09/15/24 21:16 Temperature Pulse Rate 94 91 84 Respiratory Rate 14 17 15 Blood Pressure 160/110 H 160/80 H Pulse Oximetry 95 96 Oxygen Delivery Oxygen Flow Rate Fraction of Inspired Oxygen 09/15/24 21:30 09/15/24 21:31 09/15/24 21:45 Temperature Pulse Rate 83 88 90 Respiratory Rate 16 17 22 H Blood Pressure 155/92 H Pulse Oximetry 93 95 92 Oxygen Delivery Oxygen Flow Rate Fraction of Inspired Oxygen 09/15/24 21:46 09/15/24 22:00 09/15/24 22:01 Temperature Pulse Rate 89 94 90 Respiratory Rate 21 H 14 17 Blood Pressure 163/88 H 131/77 Pulse Oximetry 94 97 100 Oxygen Delivery Oxygen Flow Rate Fraction of Inspired Oxygen 09/15/24 22:02 09/15/24 22:03 09/15/24 22:15 Temperature Pulse Rate 89 83 89 Respiratory Rate 19 32 H 19 Blood Pressure Pulse Oximetry 100 97 95 Oxygen Delivery BiPAP Oxygen Flow Rate Fraction of Inspired Oxygen 09/15/24 22:16 09/15/24 22:30 09/15/24 22:31 Temperature Pulse Rate 89 93 89 Respiratory Rate 19 18 16 Blood Pressure 146/83 H 142/86 H Pulse Oximetry 94 96 96 Oxygen Delivery Oxygen Flow Rate Fraction of Inspired Oxygen 09/15/24 22:32 09/15/24 22:45 09/15/24 23:00 Temperature Pulse Rate 69 92 88 Respiratory Rate 23 H 18 14 Blood Pressure Pulse Oximetry 97 96 97 Oxygen Delivery BiPAP Oxygen Flow Rate Fraction of Inspired Oxygen 09/15/24 23:15 09/15/24 23:30 09/15/24 23:45 Temperature Pulse Rate 95 90 84 Respiratory Rate 17 17 20 Blood Pressure Pulse Oximetry 99 97 97 Oxygen Delivery Oxygen Flow Rate Fraction of Inspired Oxygen 09/16/24 00:00 09/16/24 00:15 09/16/24 00:19 Temperature Pulse Rate 93 96 94 Respiratory Rate 17 23 H 20 Blood Pressure 133/105 H Pulse Oximetry 99 95 95 Oxygen Delivery Oxygen Flow Rate Fraction of Inspired Oxygen 09/16/24 00:30 09/16/24 00:31 09/16/24 01:00 Temperature Pulse Rate 92 98 93 Respiratory Rate 17 16 20 Blood Pressure 118/103 H Pulse Oximetry 95 95 98 Oxygen Delivery Oxygen Flow Rate Fraction of Inspired Oxygen 09/16/24 01:01 09/16/24 01:31 09/16/24 02:01 Temperature Pulse Rate 93 93 92 Respiratory Rate 23 H 17 22 H Blood Pressure 134/80 146/120 H 121/87 Pulse Oximetry 94 93 97 Oxygen Delivery Oxygen Flow Rate Fraction of Inspired Oxygen 09/16/24 02:31 09/16/24 02:55 09/16/24 03:20 Temperature 98.7 F Pulse Rate 94 100 101 H Respiratory Rate 20 24 H 22 H Blood Pressure 113/77 130/71 Pulse Oximetry 97 98 Oxygen Delivery Oxygen Flow Rate Fraction of Inspired Oxygen 09/16/24 03:22 09/16/24 03:50 09/16/24 04:00 Temperature Pulse Rate 101 H 101 H 87 Respiratory Rate 32 H 32 H Blood Pressure Pulse Oximetry 96 96 Oxygen Delivery BiPAP BiPAP Oxygen Flow Rate Fraction of Inspired Oxygen 50 09/16/24 06:00 09/16/24 08:00 09/16/24 08:00 Temperature 97.7 F Pulse Rate 85 85 96 Respiratory Rate 20 26 H Blood Pressure 137/65 Pulse Oximetry 94 92 Oxygen Delivery BiPAP Oxygen Flow Rate Fraction of Inspired Oxygen 50 09/16/24 08:00 09/16/24 08:05 09/16/24 08:05 Temperature Pulse Rate 61 85 85 Respiratory Rate 25 H 25 H Blood Pressure Pulse Oximetry 94 94 Oxygen Delivery BiPAP BiPAP Oxygen Flow Rate Fraction of Inspired Oxygen 50 09/16/24 08:05 09/16/24 12:00 09/16/24 12:00 Temperature 99.1 F Pulse Rate 85 89 61 Respiratory Rate 25 H 28 H 26 H Blood Pressure 144/77 H Pulse Oximetry 94 92 Oxygen Delivery BiPAP Oxygen Flow Rate Fraction of Inspired Oxygen 50 09/16/24 12:00 09/16/24 14:19 09/16/24 14:25 Temperature Pulse Rate 61 83 96 Respiratory Rate 25 H 26 H Blood Pressure Pulse Oximetry 92 Oxygen Delivery BiPAP Oxygen Flow Rate Fraction of Inspired Oxygen Intake/Output Intake/Output: Intake & Output 09/13/24 09/14/24 09/15/24 09/16/24 23:59 23:59 23:59 23:59 Intake Total 950 Output Total 300 Balance 650 Meds/Results Medications: Active Medications Generic Name Dose Route Start Last Admin Trade Name Freq PRN Reason Stop Dose Admin Acetaminophen 650 mg 09/15/24 17:55 Acetaminophen 325 Mg Tablet PO Q4H PRN Mild Pain (1-3) or Fever Hydrocodone Bitart/Acetaminophen 1 tab 09/15/24 17:55 09/16/24 04:04 Hydrocodone/Acetaminophen (*Crx) 5-325 Mg Tablet PO 1 tab Q4H PRN Administration Pain Rated 4-6 Albuterol/Ipratropium 3 ml 09/15/24 20:00 09/16/24 14:08 Ipratropium 0.5 Mg/Albuterol Sulfate 2.5 Mg Ampul.Neb 3 Ml INHALATION 3 ml Q6HRT SASHA Administration Ceftriaxone Sodium 2 gm in 100 mls @ 200 mls/hr 09/17/24 03:00 Rocephin 2 Gm/Ns 100 Ml IVPB Q24H SASHA Azithromycin 500 mg in 250 mls @ 250 mls/hr 09/17/24 03:00 Zithromax IVPB Q24H SASHA Methylprednisolone Sodium Succinate 60 mg 09/16/24 03:00 09/16/24 08:33 Methylprednisolone Sod Succ 125 Mg Vial IV PUSH 60 mg Q6H SASHA Administration Morphine Sulfate 2 mg 09/15/24 17:55 Morphine Sulfate (*Crx) 2 Mg/Ml Inj IV PUSH Q2H PRN Pain Rated 7-10 Nicotine 1 patch 09/16/24 15:25 Nicotine (*Pbkc) 21 Mg Patch TRANSDERM DAILY SASHA Ondansetron HCl 4 mg 09/15/24 17:55 Ondansetron Inj 4 Mg/2 Ml Vial IV PUSH Q4H PRN Nausea Radiology Results: ITS Impressions Chest X-Ray 09/15/24 15:52 IMPRESSION: Asymmetric increased density overlying right apical area; this might represent asymmetric prominent right first costal cartilage calcification, but underlying pulmonary mass density is not excluded. Recommend PA and lateral chest radiographs or CT thorax Chest CT 09/15/24 17:47 IMPRESSION: Several lung opacities are noted as indicated above. Comparison with prior CT chest examination is recommended; if unavailable, [address] chest follow-up examination is recommended. Linear atelectasis or scarring and possible minimal infiltrate of lingula Cholelithiasis Labs Labs: Laboratory Results - last 24 hr 09/15/24 09/15/24 09/16/24 15:30 21:10 02:12 WBC RBC Hgb Hct MCV MCH MCHC RDW Plt Count MPV Immature Gran % (Auto) Neut % (Auto) Lymph % (Auto) [place] % (Auto) Eos % (Auto) Baso % (Auto) Lymph # (Auto) [place] # (Auto) Eos # (Auto) Baso # (Auto) Abs Immat Gran (auto) Absolute Neuts (auto) Absolute Nucleated RBC Nucleated RBC % Puncture Site Right radial Right radial ABG pH 7.204 L* 7.285 L* ABG pCO2 94.5 H* 62.0 H* ABG pO2 84.2 86.8 ABG PO2/FiO2 Ratio 1.68 1.74 ABG HCO3 36.4 H 28.8 H ABG O2 Saturation 93.4 L 95.3 ABG O2 Content 27.2 H 27.1 H ABG Base Excess 3.0 -0.2 A-a Gradient 166.0 200.0 Oxyhemoglobin 93.3 94.9 Carboxyhemoglobin 2.2 H Methemoglobin 0.6 Reduced Hemoglobin 3.9 Total Hemoglobin 20.8 H 20.3 H O2 Delivery Device Bipap Non-invasive vent O2 Liters/Min Not Reportable Not Reportable Vent Rate 22 FiO2 50 50 Expiratory Pressure 8 10 Inspiratory Pressure 16 18 Sodium Potassium Chloride Carbon Dioxide Anion Gap BUN Creatinine Estim Creat Clear Calc Estimated GFR Glucose Lactic Acid Calcium Magnesium Total Bilirubin AST ALT Alkaline Phosphatase C-Reactive Protein Total Protein Albumin Procalcitonin TSH (Reflex) Free T4 Total T3 Influenza A (RT-PCR) Negative Influenza B (RT-PCR) Negative RSV (RT-PCR) Negative SARS-CoV-2 RNA (RT-PCR) Negative 09/16/24 10:00 WBC 10.3 H RBC 5.97 Hgb 18.1 H Hct 57.9 H MCV 97.0 MCH 30.3 MCHC 31.3 L RDW 14.1 Plt Count 227 MPV 9.8 Immature Gran % (Auto) 0.5 Neut % (Auto) 93.1 H Lymph % (Auto) 4.5 L [place] % (Auto) 1.7 L Eos % (Auto) 0.1 Baso % (Auto) 0.1 L Lymph # (Auto) 0.47 L [place] # (Auto) 0.2 Eos # (Auto) 0.0 Baso # (Auto) 0.0 Abs Immat Gran (auto) 0.05 H Absolute Neuts (auto) 9.6 H Absolute Nucleated RBC 0.000 Nucleated RBC % 0.0 Puncture Site ABG pH ABG pCO2 ABG pO2 ABG PO2/FiO2 Ratio ABG HCO3 ABG O2 Saturation ABG O2 Content ABG Base Excess A-a Gradient Oxyhemoglobin Carboxyhemoglobin Methemoglobin Reduced Hemoglobin Total Hemoglobin O2 Delivery Device O2 Liters/Min Vent Rate FiO2 Expiratory Pressure Inspiratory Pressure Sodium 134 L Potassium 5.2 H Chloride 94 L Carbon Dioxide 35 H Anion Gap 5 BUN 25 H D Creatinine 1.00 Estim Creat Clear Calc 126 Estimated GFR > 60 Glucose 202 H Lactic Acid 1.7 Calcium 8.8 Magnesium 2.1 Total Bilirubin 0.7 AST 20 ALT 23 Alkaline Phosphatase 103 C-Reactive Protein 1.8 H Total Protein 8.0 Albumin 4.0 Procalcitonin 0.1 TSH (Reflex) 0.093 L Free T4 1.23 Total T3 1.03 Influenza A (RT-PCR) Influenza B (RT-PCR) RSV (RT-PCR) SARS-CoV-2 RNA (RT-PCR)
[2024-09-16] MEDS: NICOTINE (*PBKC) 21 MG PATCH 1 PATCH TRANSDERM (16:42)
[2024-09-16] MEDS: PANTOPRAZOLE 40 MG TABLET PO (18:06)
[2024-09-16] MEDS: ENOXAPARIN 40 MG/0.4 ML SYRINGE SUB-Q (18:06)
[2024-09-16] MEDS: levoFLOXacin 750 MG TABLET PO (18:06)
[2024-09-16 18:33] LABS: Alveolar/Arterial O2 Gradient 176.3 mmHg; Base Excess ABG 1.8 mEq/l (+/-2.0); Fractional Inspired Oxygen 50 %; HCO3 ABG 29.4 mEq/l (22.0-26.0); Oxygen Content ABG 25.1 %vol (16.0-22.0); Oxygen Saturation ABG 97.9 % (95.0-100.0); Oxyhemoglobin 97.7 % THb (90.0-100.0); PCO2 ABG 56.6 mmHg (35.0-45.0); PO2 ABG 116.5 mmHg (80.0-100.0); PO2 FiO2 Ratio Arterial Blood 2.33 %; Site Drawn RIGHT RADIAL; Total Hemoglobin 18.2 g/dL (12.0-18.0); pH ABG 7.334 (7.350-7.450)
[2024-09-16 18:34] LABS: Device BIPAP; Expiratory Pressure 8 cmH2O; Inspiratory Pressure 18 cmH2O; Modified Allen's Test Pass
[2024-09-16] MEDS: ATORVASTATIN 40 MG TABLET 80 MG PO (20:38)
[2024-09-16 20:40] LABS: Glucose Point of Care 277 mg/dl (65-105)
[2024-09-16] MEDS: DICLOFENAC SOD 75 MG TABLET.EC PO (20:40)
[2024-09-16 23:47] LABS: Potassium 5.3 mmol/L (3.4-5.0)
[2024-09-16 23:50] LABS: Hemoglobin A1C 6.5 % (<5.7)
[2024-09-17] VITALS (31 sets, daily range): BP systolic 127–146; BP diastolic 63–75; PULSE 61–101; RESP 12–26; TEMP 36.4–36.9; O2SAT 79–100
[2024-09-17 00:58] LABS: Folic Acid 3.7 ng/mL (2.76->20)
[2024-09-17] MEDS: IPRATROPIUM 0.5 MG/ALBUTEROL SULFATE 2.5 MG AMPUL.NEB 3 ML INHALATION ×3 (01:15→13:37)
[2024-09-17] MEDS: HYDROcodone/acetaminophen (*CRX) 5-325 MG TABLET 1 TAB PO ×2 (01:35→20:25)
[2024-09-17] MEDS: methylPREDNISolone SOD SUCC 125 MG VIAL 60 MG IV PUSH ×4 (01:36→20:20)
[2024-09-17 05:14] LABS: Alveolar/Arterial O2 Gradient 192.1 mmHg; Base Excess ABG 6.2 mEq/l (+/-2.0); Fractional Inspired Oxygen 100 %; HCO3 ABG 33.9 mEq/l (22.0-26.0); Oxygen Content ABG 26.1 %vol (16.0-22.0); Oxygen Saturation ABG 99.8 % (95.0-100.0); Oxyhemoglobin 98.7 % THb (90.0-100.0); PCO2 ABG 59.2 mmHg (35.0-45.0); PO2 ABG 461.7 mmHg (80.0-100.0); PO2 FiO2 Ratio Arterial Blood 4.62 %; pH ABG 7.376 (7.350-7.450)
[2024-09-17 05:15] LABS: Modified Allen's Test Pass; Site Drawn RIGHT RADIAL
[2024-09-17 05:16] LABS: Device NON-INVASIVE VENT; Non-Invasive Expiratory Pressure 8 CMH2O; Non-Invasive Inspiratory Pressure 18 CMH2O; Non-Invasive Vent Rate 22 /MIN
[2024-09-17] MEDS: MORPHINE SULFATE (*CRX) 2 MG/ML INJ IV PUSH (05:20)
[2024-09-17 08:31] LABS: Glucose Point of Care 284 mg/dl (65-105)
[2024-09-17 08:49] LABS: Basophils Percent Auto 0.1 % (0.2-1.2); Hematocrit 58.4 % (42.0-52.0); Hemoglobin 18.2 g/dL (14.0-18.0); Immature Granulocyte Percent A 0.6 % (0-0.5); Lymphocytes Absolute Auto 0.48 K/mm3 (0.9-3.2); Lymphocytes Percent Auto 3.1 % (18.3-44.2); Mean Corpuscular HGB Conc 31.2 g/dl (32-36); Mean Corpuscular Hemoglobin 30.5 pg (26-34); Mean Corpuscular Volume 97.8 fl (80-100); Mean Platelet Volume 9.8 fl (7.4-10.4); Monocytes Absolute Auto 0.6 K/mm3 (0.1-0.6); Monocytes Percent Auto 3.6 % (2.6-8.5); Neutrophils Absolute Auto 14.3 K/mm3 (1.3-6.7); Neutrophils Percent Auto 92.6 % (45.5-73.1); Platelet Count Result 241 k/mm3 (150-375); Red Blood Count 5.97 M/mm3 (4.6-6.20); Red Cell Distribution Width 14.3 % (11.5-14.5); White Blood Count 15.4 K/mm3 (4.5-10.0)
[2024-09-17 08:58] LABS: Alanine Aminotransferase 23 U/L (6-50); Albumin Level 3.9 g/dL (3.5-5.1); Alkaline Phosphatase 93 U/L (38-126); Anion Gap 3 mmol/L (4-12); Aspartate Amino Transferase 22 U/L (17-59); Bilirubin,Total 0.7 mg/dL (0.2-1.3); Blood Urea Nitrogen 31 mg/dL (9-20); Calcium 8.8 mg/dL (8.4-10.2); Carbon Dioxide 31 mmol/L (22-30); Chloride 97 mmol/L (98-107); Estimated CRCL calculation 158 ml/min; Estimated Glomerular Filt Rate > 60; Glucose 304 mg/dL (65-110); Magnesium 2.3 mg/dL (1.6-2.3); Phosphorus 3.4 mg/dL (2.5-4.5); Potassium 4.9 mmol/L (3.4-5.0); Sodium 131 mmol/L (137-145)
[2024-09-17] MEDS: ASPIRIN 325 MG TABLET PO (09:00)
[2024-09-17 09:08] LABS: Rheumatoid Factor 16.9 IU/ML (<12)
[2024-09-17] MEDS: INSULIN ASPART (*BKC) 100 UNITS/ML SUB-Q ×3 (09:19→16:03)
[2024-09-17] MEDS: ENOXAPARIN 40 MG/0.4 ML SYRINGE SUB-Q (09:20)
[2024-09-17] MEDS: NICOTINE (*PBKC) 21 MG PATCH 1 PATCH TRANSDERM (09:20)
[2024-09-17] MEDS: PANTOPRAZOLE 40 MG TABLET PO (09:20)
[2024-09-17 12:17] LABS: Glucose Point of Care 380 mg/dl (65-105)
[2024-09-17 16:02] LABS: Glucose Point of Care 274 mg/dl (65-105)
[2024-09-17] MEDS: levoFLOXacin 750 MG TABLET PO (16:03)
--- NOTE | 2024-09-17 16:26 | P.PNIM_ITS ---
Progress Note: A&P Assessment and Plan (1) Acute hypercapnic respiratory failure: Code(s): J96.02 - Acute respiratory failure with hypercapnia Status: Acute Assessment and Plan: Patient presents with SOB and was 96% requiring 15L NRB. ABG 7.22/86/252 on 15L NRB. CXR showing possible right apical mass. CT chest without contrast showing several lung opacities including a 2cm RLL calcified nodule possibly granuloma, linear atelectasis and cholelithiasis. He was started on BiPAP now at 18/10 with ABG showing 7.29/62/87. BiPAP settings adjusted and ABG this mornin.38/59/461 on 100% FiO2 (not sure why on 100%) Suspect related to COPD exacerbation worsened by untreated KAL. Pulmonary consult since he will probably need NV at discharge and close followup. Wean Bipap off today while awake but continue at bed, naps and prn for SOB. (2) COPD exacerbation: Code(s): J44.1 - Chronic obstructive pulmonary disease with (acute) exacerbation Status: Acute Assessment and Plan: Patient with extensive smoking hx. Presents with SOB and found to have acute resp failure. Imaging and ABG as above. WBC 10K, PCT 0.1. CRP 1.8. Influenza, COVID and RSV PCR negative. Started on IV Solu-Medrol, abx and Duonebs. Improved air exchange and he appears more comfortable. BCx NGTD. Sputum Cx was not performed. Urine Ag pending Continue abx given the productive cough. Continue Duonebs and Solu-Medrol (3) HTN (hypertension): Code(s): I10 - Essential (primary) hypertension Status: Acute Assessment and Plan: Patient's blood pressure was reviewed on 09/17 Blood pressure was elevated on admission felt related to resp failure. BP better controlled now. May have poorly controlled BP at home due to untreated KAL. Continue to hold lisinopril. (4) KAL (obstructive sleep apnea): Code(s): G47.33 - Obstructive sleep apnea (adult) (pediatric) Status: Acute Assessment and Plan: As above. Patient will need apnea link when he is close to discharge (5) Rheumatoid arthritis: Code(s): M06.9 - Rheumatoid arthritis, unspecified Status: Acute Assessment and Plan: Patient has rheumatoid arthritis but is not on immune modulators. He only takes diclofenac which will continue. Added Protonix for gastric protection given he is on NSAIDs, steroids and aspirin. RF 16.9 Consider RA could be contributing to his lung findings. (6) IFG (impaired fasting glucose): Code(s): R73.01 - Impaired fasting glucose Status: Acute Assessment and Plan: A1c 6.5% Patient has impaired fasting glucose noted on past medical history. The patient's blood glucose was reviewed on 09/17 Glucose remains poorly controlled related to steroids. Continue AccuCheks covering with sliding scale. Hypoglycemia protocol available as needed. Add lantus. (7) HLD (hyperlipidemia): Code(s): E78.5 - Hyperlipidemia, unspecified Status: Acute Assessment and Plan: LFTs are normal. Continue atorvastatin. (8) Tobacco use: Code(s): Z72.0 - Tobacco use Status: Acute Assessment and Plan: Patient was educated about the benefits of smoking cessation.. (9) Polycythemia: Code(s): D75.1 - Secondary polycythemia Status: Acute Assessment and Plan: Polycythemia present on admission with hgb 18-19 range. Suspect related to chronic nocturnal hypoxia. Will need sleep study and home O2. Plan DVT Prophylaxis - Lovenox Code status - Full Subjective Date/time seen: 09/17/24 16:26 Interval history: 54yo male with tobacco abuse, RA, seizures, HLD and HTN here for shortness fo breath. Patient tolerated the bipap last night but felt the pressure was too high. Transtioned to 5-6L O2 off bipap. SOB better. Eating ok. Exam Narrative: AF 98.4 133/75 84 20 92% 6L Gen - NARD Chest - Inspiratory and expiratory wheezes. Good air exchange CV - RRR S1/S2; Tele showing a few episodes of bigeminy Abd - Soft, obese, NT Ext - No pedal edema. Psych - Nml mood and affect Skin - Warm and dry Objective Data Vital Signs Vital Signs: Vital Signs - 24 hr 09/16/24 17:05 09/16/24 18:00 09/16/24 20:00 Temperature 97.8 F Pulse Rate 82 93 Respiratory Rate 28 H 30 H Blood Pressure 125/78 Pulse Oximetry 98 Oxygen Delivery BiPAP Oxygen Flow Rate Fraction of Inspired Oxygen 09/16/24 20:00 09/16/24 20:03 09/16/24 20:11 Temperature Pulse Rate 83 88 88 Respiratory Rate 27 H 35 H Blood Pressure Pulse Oximetry 95 Oxygen Delivery BiPAP Oxygen Flow Rate Fraction of Inspired Oxygen 09/16/24 20:12 09/16/24 20:22 09/16/24 20:30 Temperature Pulse Rate 88 89 89 Respiratory Rate 26 H 26 H Blood Pressure Pulse Oximetry 95 95 Oxygen Delivery BiPAP BiPAP Oxygen Flow Rate Fraction of Inspired Oxygen 50 50 09/16/24 22:00 09/16/24 23:18 09/16/24 23:40 Temperature 98.1 F Pulse Rate 93 83 82 Respiratory Rate 25 H 26 H Blood Pressure 145/78 H Pulse Oximetry 97 96 Oxygen Delivery BiPAP Oxygen Flow Rate Fraction of Inspired Oxygen 09/17/24 00:00 09/17/24 00:00 09/17/24 01:17 Temperature Pulse Rate 82 79 80 Respiratory Rate 26 H 24 H Blood Pressure Pulse Oximetry 96 98 Oxygen Delivery BiPAP BiPAP Oxygen Flow Rate Fraction of Inspired Oxygen 50 09/17/24 01:19 09/17/24 01:25 09/17/24 02:00 Temperature Pulse Rate 78 75 79 Respiratory Rate 24 H 26 H Blood Pressure Pulse Oximetry Oxygen Delivery Oxygen Flow Rate Fraction of Inspired Oxygen 09/17/24 03:53 09/17/24 04:00 09/17/24 05:23 Temperature 98.3 F Pulse Rate 76 77 61 Respiratory Rate 24 H 24 H Blood Pressure 127/63 Pulse Oximetry 79 L 100 Oxygen Delivery BiPAP Oxygen Flow Rate Fraction of Inspired Oxygen 100 09/17/24 05:36 09/17/24 05:39 09/17/24 06:00 Temperature Pulse Rate 80 72 Respiratory Rate 22 H Blood Pressure Pulse Oximetry 99 98 Oxygen Delivery BiPAP BiPAP Oxygen Flow Rate Fraction of Inspired Oxygen 09/17/24 08:00 09/17/24 08:44 09/17/24 08:44 Temperature 97.9 F Pulse Rate 89 78 Respiratory Rate 12 22 H Blood Pressure 146/68 H Pulse Oximetry 92 94 Oxygen Delivery Nasal Cannula Oxygen Flow Rate 6 Fraction of Inspired Oxygen 44 09/17/24 08:50 09/17/24 11:32 09/17/24 12:00 Temperature 97.5 F L Pulse Rate 84 92 Respiratory Rate 20 24 H Blood Pressure 137/65 Pulse Oximetry 90 90 Oxygen Delivery Nasal Cannula Oxygen Flow Rate 6 Fraction of Inspired Oxygen 44 09/17/24 13:39 09/17/24 13:39 09/17/24 13:47 Temperature Pulse Rate 88 94 Respiratory Rate 20 20 Blood Pressure Pulse Oximetry 90 Oxygen Delivery Nasal Cannula Oxygen Flow Rate 6 Fraction of Inspired Oxygen 44 09/17/24 15:54 Temperature 98.4 F Pulse Rate 84 Respiratory Rate 20 Blood Pressure 133/75 Pulse Oximetry 92 Oxygen Delivery Oxygen Flow Rate Fraction of Inspired Oxygen Intake/Output Intake/Output: Intake & Output 09/14/24 09/15/24 09/16/24 09/17/24 23:59 23:59 23:59 23:59 Intake Total 2290 880 Output Total 700 400 Balance 1590 480 Meds/Results Medications: Active Medications Generic Name Dose Route Start Last Admin Trade Name Freq PRN Reason Stop Dose Admin Acetaminophen 650 mg 09/15/24 17:55 Acetaminophen 325 Mg Tablet PO Q4H PRN Mild Pain (1-3) or Fever Hydrocodone Bitart/Acetaminophen 1 tab 09/15/24 17:55 09/17/24 01:35 Hydrocodone/Acetaminophen (*Crx) 5-325 Mg Tablet PO 1 tab Q4H PRN Administration Pain Rated 4-6 Albuterol/Ipratropium 3 ml 09/15/24 20:00 09/17/24 13:37 Ipratropium 0.5 Mg/Albuterol Sulfate 2.5 Mg Ampul.Neb 3 Ml INHALATION 3 ml Q6HRT SASHA Administration Aspirin 325 mg 09/17/24 09:00 09/17/24 09:00 Aspirin 325 Mg Tablet PO 325 mg DAILY SASHA Administration Atorvastatin Calcium 80 mg 09/16/24 21:00 09/16/24 20:38 Atorvastatin 40 Mg Tablet PO 80 mg HS SASHA Administration Dextrose 12.5 gm 09/16/24 17:07 Dextrose 50% 25 Gm/50 Ml Syringe IV PUSH PRN PRN Hypoglycemia Protocol Diclofenac Sodium 75 mg 09/16/24 21:00 09/16/24 20:40 Diclofenac Sod 75 Mg Tablet.Ec PO 75 mg HS SASHA Administration Enoxaparin Sodium 40 mg 09/17/24 09:00 09/17/24 09:20 Enoxaparin 40 Mg/0.4 Ml Syringe SUB-Q 40 mg DAILY SASHA Administration Glucagon 1 mg 09/16/24 17:07 Glucagon For Inj 1 Mg Vial IM PRN PRN Hypoglycemia Protocol Glucose 15 gm 09/16/24 17:07 Glucose Oral Gel 15 Gm Of Glucse In 37.5 Gm Tube PO PRN PRN Hypoglycemia Protocol Dextrose 1,000 mls @ 100 mls/hr 09/16/24 17:07 Dextrose 5% 1,000 Ml IVPB PRN PRN Hypoglycemia Protocol Insulin Aspart 4 - 8 units 09/17/24 08:00 09/17/24 16:03 Insulin Aspart (*Bkc) 100 Units/Ml SUB-Q 5 units TIDWM SASHA Administration Protocol Levofloxacin 750 mg 09/16/24 17:00 09/17/24 16:03 Levofloxacin 750 Mg Tablet PO 750 mg Q24H SASHA Administration Methylprednisolone Sodium Succinate 60 mg 09/16/24 03:00 09/17/24 16:02 Methylprednisolone Sod Succ 125 Mg Vial IV PUSH 60 mg Q6H SASHA Administration Morphine Sulfate 2 mg 09/15/24 17:55 09/17/24 05:20 Morphine Sulfate (*Crx) 2 Mg/Ml Inj IV PUSH 2 mg Q2H PRN Administration Pain Rated 7-10 Nicotine 1 patch 09/16/24 15:25 09/17/24 09:20 Nicotine (*Pbkc) 21 Mg Patch TRANSDERM 1 patch DAILY SASHA Administration Pantoprazole Sodium 40 mg 09/17/24 09:00 09/17/24 09:20 Pantoprazole 40 Mg Tablet PO 40 mg QAM SASHA Administration Radiology Results: ITS Impressions Chest X-Ray 09/15/24 15:52 IMPRESSION: Asymmetric increased density overlying right apical area; this might represent asymmetric prominent right first costal cartilage calcification, but underlying pulmonary mass density is not excluded. Recommend PA and lateral chest radiographs or CT thorax Chest CT 09/15/24 17:47 IMPRESSION: Several lung opacities are noted as indicated above. Comparison with prior CT chest examination is recommended; if unavailable, [address] chest follow-up examination is recommended. Linear atelectasis or scarring and possible minimal infiltrate of lingula Cholelithiasis Labs Labs: Laboratory Results - last 24 hr 09/16/24 09/16/24 09/16/24 18:24 20:37 23:35 WBC RBC Hgb Hct MCV MCH MCHC RDW Plt Count MPV Immature Gran % (Auto) Neut % (Auto) Lymph % (Auto) Bledsoe % (Auto) Eos % (Auto) Baso % (Auto) Lymph # (Auto) Bledsoe # (Auto) Eos # (Auto) Baso # (Auto) Abs Immat Gran (auto) Absolute Neuts (auto) Absolute Nucleated RBC Nucleated RBC % Puncture Site Right radial ABG pH 7.334 L ABG pCO2 56.6 H ABG pO2 116.5 H ABG PO2/FiO2 Ratio 2.33 ABG HCO3 29.4 H ABG O2 Saturation 97.9 ABG O2 Content 25.1 H ABG Base Excess 1.8 A-a Gradient 176.3 Oxyhemoglobin 97.7 Total Hemoglobin 18.2 H O2 Delivery Device Bipap O2 Liters/Min Not Reportable Vent Rate FiO2 50 Expiratory Pressure 8 Inspiratory Pressure 18 Sodium Potassium 5.3 H Chloride Carbon Dioxide Anion Gap BUN Creatinine Estim Creat Clear Calc Estimated GFR Glucose POC Capillary Glucose 277 H Hemoglobin A1c 6.5 H Calcium Phosphorus Magnesium Total Bilirubin AST ALT Alkaline Phosphatase Total Protein Albumin Vitamin B12 349.0 Folate 3.7 Rheumatoid Factor 09/17/24 09/17/24 09/17/24 04:58 08:19 08:38 WBC 15.4 H RBC 5.97 Hgb 18.2 H Hct 58.4 H MCV 97.8 MCH 30.5 MCHC 31.2 L RDW 14.3 Plt Count 241 MPV 9.8 Immature Gran % (Auto) 0.6 H Neut % (Auto) 92.6 H Lymph % (Auto) 3.1 L Bledsoe % (Auto) 3.6 Eos % (Auto) 0.0 Baso % (Auto) 0.1 L Lymph # (Auto) 0.48 L Bledsoe # (Auto) 0.6 Eos # (Auto) 0.0 Baso # (Auto) 0.0 Abs Immat Gran (auto) 0.10 H Absolute Neuts (auto) 14.3 H Absolute Nucleated RBC 0.000 Nucleated RBC % 0.0 Puncture Site Right radial ABG pH 7.376 ABG pCO2 59.2 H ABG pO2 461.7 H ABG PO2/FiO2 Ratio 4.62 ABG HCO3 33.9 H ABG O2 Saturation 99.8 ABG O2 Content 26.1 H ABG Base Excess 6.2 A-a Gradient 192.1 Oxyhemoglobin 98.7 Total Hemoglobin 18.0 O2 Delivery Device Non-invasive vent O2 Liters/Min Not Reportable Vent Rate 22 FiO2 100 Expiratory Pressure 8 Inspiratory Pressure 18 Sodium 131 L Potassium 4.9 Chloride 97 L Carbon Dioxide 31 H Anion Gap 3 L BUN 31 H Creatinine 0.80 Estim Creat Clear Calc 158 Estimated GFR > 60 Glucose 304 H POC Capillary Glucose 284 H Hemoglobin A1c Calcium 8.8 Phosphorus 3.4 Magnesium 2.3 Total Bilirubin 0.7 AST 22 ALT 23 Alkaline Phosphatase 93 Total Protein 8.0 Albumin 3.9 Vitamin B12 Folate Rheumatoid Factor 16.9 09/17/24 09/17/24 12:04 15:56 WBC RBC Hgb Hct MCV MCH MCHC RDW Plt Count MPV Immature Gran % (Auto) Neut % (Auto) Lymph % (Auto) Bledsoe % (Auto) Eos % (Auto) Baso % (Auto) Lymph # (Auto) Bledsoe # (Auto) Eos # (Auto) Baso # (Auto) Abs Immat Gran (auto) Absolute Neuts (auto) Absolute Nucleated RBC Nucleated RBC % Puncture Site ABG pH ABG pCO2 ABG pO2 ABG PO2/FiO2 Ratio ABG HCO3 ABG O2 Saturation ABG O2 Content ABG Base Excess A-a Gradient Oxyhemoglobin Total Hemoglobin O2 Delivery Device O2 Liters/Min Vent Rate FiO2 Expiratory Pressure Inspiratory Pressure Sodium Potassium Chloride Carbon Dioxide Anion Gap BUN Creatinine Estim Creat Clear Calc Estimated GFR Glucose POC Capillary Glucose 380 H 274 H Hemoglobin A1c Calcium Phosphorus Magnesium Total Bilirubin AST ALT Alkaline Phosphatase Total Protein Albumin Vitamin B12 Folate Rheumatoid Factor
[2024-09-17 20:06] LABS: Glucose Point of Care 327 mg/dl (65-105)
[2024-09-17] MEDS: INSULIN GLARGINE (*BKC) 100 UNITS/ML 20 UNITS SUB-Q (20:20)
[2024-09-17] MEDS: ATORVASTATIN 40 MG TABLET 80 MG PO (20:21)
[2024-09-17] MEDS: DICLOFENAC SOD 75 MG TABLET.EC PO (20:21)
[2024-09-18] VITALS (18 sets, daily range): BP systolic 140–163; BP diastolic 81–96; PULSE 60–102; RESP 20–27; TEMP 36.4–36.9; O2SAT 90–97
[2024-09-18] MEDS: IPRATROPIUM 0.5 MG/ALBUTEROL SULFATE 2.5 MG AMPUL.NEB 3 ML INHALATION ×4 (01:21→19:58)
[2024-09-18] MEDS: methylPREDNISolone SOD SUCC 125 MG VIAL 60 MG IV PUSH ×3 (06:24→17:27)
[2024-09-18] MEDS: INSULIN ASPART (*BKC) 100 UNITS/ML SUB-Q ×3 (08:04→16:37)
[2024-09-18] MEDS: NICOTINE (*PBKC) 21 MG PATCH 1 PATCH TRANSDERM (08:05)
[2024-09-18] MEDS: PANTOPRAZOLE 40 MG TABLET PO (08:06)
[2024-09-18] MEDS: ASPIRIN 325 MG TABLET PO (08:06)
[2024-09-18] MEDS: ENOXAPARIN 40 MG/0.4 ML SYRINGE SUB-Q (08:06)
[2024-09-18 09:05] LABS: Glucose Point of Care 331 mg/dl (65-105)
--- NOTE | 2024-09-18 11:49 | PM.IMPN ---
Progress Note: A&P Assessment and Plan (1) Acute hypercapnic respiratory failure: Code(s): J96.02 - Acute respiratory failure with hypercapnia Status: Acute Assessment and Plan: Patient presents with SOB and was 96% requiring 15L NRB. ABG 7.22/86/252 on 15L NRB. CXR showing possible right apical mass. CT chest without contrast showing several lung opacities including a 2cm RLL calcified nodule possibly granuloma, linear atelectasis and cholelithiasis. He was started on BiPAP now at 18/10 with ABG showing 7.29/62/87. BiPAP settings adjusted and ABG this mornin.38/59/461 on 100% FiO2 (not sure why on 100%) Suspect related to COPD exacerbation worsened by untreated KAL. Pulmonary consult since he will probably need NV at discharge and close followup. Wean Bipap off today while awake but continue at bed, naps and prn for SOB. 09/18/2024 Patient is scheduled getting better. Requiring less BiPAP. Plan is to continue current treatment monitor closely. Repeat chest x-ray in the morning. (2) COPD exacerbation: Code(s): J44.1 - Chronic obstructive pulmonary disease with (acute) exacerbation Status: Acute Assessment and Plan: Patient with extensive smoking hx. Presents with SOB and found to have acute resp failure. Imaging and ABG as above. WBC 10K, PCT 0.1. CRP 1.8. Influenza, COVID and RSV PCR nega/tive. Started on IV Solu-Medrol, abx and Duonebs. / Improved air exchange and he appears more comfortable. BCx NGTD. Sputum Cx was not performed. Urine Ag pending Continue abx given the productive cough. Continue Duonebs and Solu-Medrol 09/18/2024 Patient has a getting better. Acquiring last Pap. Plan is to continue with antibiotic , DuoNebs and steroids. Monitor closely. (3) HTN (hypertension): Code(s): I10 - Essential (primary) hypertension Status: Acute Assessment and Plan: Patient's blood pressure was reviewed on 09/17 Blood pressure was elevated on admission felt related to resp failure. BP better controlled now. May have poorly controlled BP at home due to untreated KAL. 09/18/2024 Continue to monitor closely. (4) KAL (obstructive sleep apnea): Code(s): G47.33 - Obstructive sleep apnea (adult) (pediatric) Status: Acute Assessment and Plan: As above. Patient will need apnea link when he is close to discharge (5) Rheumatoid arthritis: Code(s): M06.9 - Rheumatoid arthritis, unspecified Status: Acute Assessment and Plan: Patient has rheumatoid arthritis but is not on immune modulators. He only takes diclofenac which will continue. Added Protonix for gastric protection given he is on NSAIDs, steroids and aspirin. RF 16.9 Consider RA could be contributing to his lung findings. (6) IFG (impaired fasting glucose): Code(s): R73.01 - Impaired fasting glucose Status: Acute Assessment and Plan: A1c 6.5% Patient has impaired fasting glucose noted on past medical history. The patient's blood glucose was reviewed on 09/17 Glucose remains poorly controlled related to steroids. Continue AccuCheks covering with sliding scale. Hypoglycemia protocol available as needed. Add lantus. (7) HLD (hyperlipidemia): Code(s): E78.5 - Hyperlipidemia, unspecified Status: Acute Assessment and Plan: LFTs are normal. Continue atorvastatin. (8) Tobacco use: Code(s): Z72.0 - Tobacco use Status: Acute Assessment and Plan: Patient was educated about the benefits of smoking cessation.. (9) Polycythemia: Code(s): D75.1 - Secondary polycythemia Status: Acute Assessment and Plan: Polycythemia present on admission with hgb 18-19 range. Suspect related to chronic nocturnal hypoxia. Will need sleep study. Plan DVT Prophylaxis - Lovenox Code status - Full Subjective Date/time seen: 09/18/24 11:49 Interval history: 09/18/2024 Patient was seen during the morning rounds today. 54yo male with tobacco abuse, RA and HTN here for shortness fo breath. Patient tolerated the bipap last night. Mild sob, no chest pain. Review of Systems Review of Systems: ROS unobtainable: Yes unobtainable due to medical condition (Respiratory failure on BiPAP) Exam Narrative: AF 98.4 133/75 84 20 92% 6L Gen - NARD Chest - Inspiratory and expiratory wheezes. Good air exchange CV - RRR S1/S2; Tele showing a few episodes of bigeminy Abd - Soft, obese, NT Ext - No pedal edema. Psych - Nml mood and affect Skin - Warm and dry Const: General: comfortable, no acute distress, well developed, alert, awake, patient obtunded (Initially) and obese Nutritional Appearance: obese Orientation/consciousness: patient oriented x3 and patient obtunded (Initially) Other: Awake alert oriented x3 HENMT: Head: normal to inspection, normocephalic and atraumatic Ears: hearing grossly normal bilaterally Face/Nose/Sinus: normal facial exam Face and sinus: normal facial exam Eyes: General: appearance normal, both eyes and all related structures Pupils: Equal, round and reactive pupils present EOM: EOMs intact bilaterally Neck: Neck: full ROM, no lymphadenopathy and no JVD Thyroid: thyroid normal Lymphatic: no lymphadenopathy noted Resp: Effort & Inspection: normal respiratory effort and able to speak in complete sentences Auscultation: clear to auscultation bilaterally and diminished lung sounds Cardio: Jugular venous distension: no JVD Rate: regular rate Rhythm: regular rhythm Heart sounds: S1 normal heart sound present and S2 normal heart sound present : General: Yes deferred Skin: Rashes: no rashes Wounds: no wounds Neuro: General: patient oriented x3, CN's II-XI intact bilaterally and patient obtunded (Initially) Cranial nerves: Yes CN's II-XII intact bilaterally and Yes Equal, round and reactive pupils present Cognition (Neuro): normal cognition Speech: normal speech Gait exam (Neuro): Normal gait present Motor exam (neuro): 5/5 motor strength present throughout Extrem: General: normal to inspection, full ROM, no joint enlargement and no pedal edema Objective Data Vital Signs Vital Signs: Vital Signs - 24 hr 09/17/24 12:00 09/17/24 12:00 09/17/24 12:00 Temperature 36.4 C L Pulse Rate 92 84 101 H Respiratory Rate 24 H 20 Blood Pressure 137/65 Pulse Oximetry 90 92 Oxygen Delivery Nasal Cannula Oxygen Flow Rate 6 Fraction of Inspired Oxygen 44 09/17/24 13:39 09/17/24 13:39 09/17/24 13:47 Temperature Pulse Rate 88 94 Respiratory Rate 20 20 Blood Pressure Pulse Oximetry 90 Oxygen Delivery Nasal Cannula Oxygen Flow Rate 6 Fraction of Inspired Oxygen 44 09/17/24 14:00 09/17/24 15:54 09/17/24 16:00 Temperature 36.9 C Pulse Rate 98 84 84 Respiratory Rate 20 20 Blood Pressure 133/75 Pulse Oximetry 92 92 Oxygen Delivery Nasal Cannula Oxygen Flow Rate 6 Fraction of Inspired Oxygen 44 09/17/24 16:00 09/17/24 18:00 09/17/24 19:55 Temperature Pulse Rate 93 88 88 Respiratory Rate 21 H Blood Pressure Pulse Oximetry 92 Oxygen Delivery Nasal Cannula Oxygen Flow Rate 6 Fraction of Inspired Oxygen 09/17/24 20:00 09/17/24 20:00 09/17/24 20:10 Temperature 36.6 C Pulse Rate 84 92 92 Respiratory Rate 22 H 20 Blood Pressure 141/75 H Pulse Oximetry 93 Oxygen Delivery Oxygen Flow Rate Fraction of Inspired Oxygen 09/17/24 20:19 09/17/24 20:20 09/17/24 22:00 Temperature Pulse Rate 94 92 Respiratory Rate 20 Blood Pressure Pulse Oximetry 97 Oxygen Delivery Nasal Cannula Oxygen Flow Rate 6 Fraction of Inspired Oxygen 09/17/24 23:34 09/17/24 23:49 09/18/24 00:00 Temperature 36.7 C Pulse Rate 89 89 91 Respiratory Rate 25 H 25 H 25 H Blood Pressure 151/81 H Pulse Oximetry 98 98 96 Oxygen Delivery BiPAP BiPAP Oxygen Flow Rate Fraction of Inspired Oxygen 44 09/18/24 00:00 09/18/24 01:21 09/18/24 01:31 Temperature Pulse Rate 85 90 92 Respiratory Rate 22 H 22 H Blood Pressure Pulse Oximetry Oxygen Delivery Oxygen Flow Rate Fraction of Inspired Oxygen 09/18/24 01:31 09/18/24 02:00 09/18/24 04:00 Temperature Pulse Rate 92 73 72 Respiratory Rate 22 H Blood Pressure Pulse Oximetry 97 Oxygen Delivery BiPAP Oxygen Flow Rate Fraction of Inspired Oxygen 09/18/24 06:00 09/18/24 08:00 09/18/24 08:00 Temperature 36.5 C Pulse Rate 71 60 93 Respiratory Rate 27 H 20 Blood Pressure 163/82 H Pulse Oximetry 97 92 Oxygen Delivery Nasal Cannula Oxygen Flow Rate 5 Fraction of Inspired Oxygen 40 09/18/24 08:00 09/18/24 08:47 09/18/24 08:47 Temperature Pulse Rate 86 91 Respiratory Rate 20 Blood Pressure Pulse Oximetry 92 Oxygen Delivery Nasal Cannula Oxygen Flow Rate 5 Fraction of Inspired Oxygen 40 09/18/24 09:12 09/18/24 10:00 Temperature Pulse Rate 93 92 Respiratory Rate 20 Blood Pressure Pulse Oximetry Oxygen Delivery Oxygen Flow Rate Fraction of Inspired Oxygen Intake/Output Intake/Output: Intake & Output 09/15/24 09/16/24 09/17/24 09/18/24 23:59 23:59 23:59 23:59 Intake Total 2290 1870 1000 Output Total 700 1550 Balance 5698 896 5332 Meds/Results Medications: Active Medications Generic Name Dose Route Start Last Admin Trade Name Freq PRN Reason Stop Dose Admin Acetaminophen 650 mg 09/15/24 17:55 Acetaminophen 325 Mg Tablet PO Q4H PRN Mild Pain (1-3) or Fever Hydrocodone Bitart/Acetaminophen 1 tab 09/15/24 17:55 09/17/24 20:25 Hydrocodone/Acetaminophen (*Crx) 5-325 Mg Tablet PO 1 tab Q4H PRN Administration Pain Rated 4-6 Albuterol/Ipratropium 3 ml 09/15/24 20:00 09/18/24 08:47 Ipratropium 0.5 Mg/Albuterol Sulfate 2.5 Mg Ampul.Neb 3 Ml INHALATION 3 ml Q6HRT SASHA Administration Aspirin 325 mg 09/17/24 09:00 09/18/24 08:06 Aspirin 325 Mg Tablet PO 325 mg DAILY SASHA Administration Atorvastatin Calcium 80 mg 09/16/24 21:00 09/17/24 20:21 Atorvastatin 40 Mg Tablet PO 80 mg HS SASHA Administration Dextrose 12.5 gm 09/16/24 17:07 Dextrose 50% 25 Gm/50 Ml Syringe IV PUSH PRN PRN Hypoglycemia Protocol Diclofenac Sodium 75 mg 09/16/24 21:00 09/17/24 20:21 Diclofenac Sod 75 Mg Tablet.Ec PO 75 mg HS SASHA Administration Enoxaparin Sodium 40 mg 09/17/24 09:00 09/18/24 08:06 Enoxaparin 40 Mg/0.4 Ml Syringe SUB-Q 40 mg DAILY SASHA Administration Glucagon 1 mg 09/16/24 17:07 Glucagon For Inj 1 Mg Vial IM PRN PRN Hypoglycemia Protocol Glucose 15 gm 09/16/24 17:07 Glucose Oral Gel 15 Gm Of Glucse In 37.5 Gm Tube PO PRN PRN Hypoglycemia Protocol Dextrose 1,000 mls @ 100 mls/hr 09/16/24 17:07 Dextrose 5% 1,000 Ml IVPB PRN PRN Hypoglycemia Protocol Insulin Aspart 4 - 8 units 09/17/24 08:00 09/18/24 11:29 Insulin Aspart (*Bkc) 100 Units/Ml SUB-Q 8 units TIDWM SASHA Administration Protocol Insulin Glargine 20 units 09/17/24 21:00 09/17/24 20:20 Insulin Glargine (*Bkc) 100 Units/Ml SUB-Q 20 units HS SASHA Administration Levofloxacin 750 mg 09/16/24 17:00 09/17/24 16:03 Levofloxacin 750 Mg Tablet PO 750 mg Q24H SASHA Administration Methylprednisolone Sodium Succinate 60 mg 09/18/24 06:00 09/18/24 11:31 Methylprednisolone Sod Succ 125 Mg Vial IV PUSH 60 mg Q6HR SASHA Administration Morphine Sulfate 2 mg 09/15/24 17:55 09/17/24 05:20 Morphine Sulfate (*Crx) 2 Mg/Ml Inj IV PUSH 2 mg Q2H PRN Administration Pain Rated 7-10 Nicotine 1 patch 09/16/24 15:25 09/18/24 08:05 Nicotine (*Pbkc) 21 Mg Patch TRANSDERM 1 patch DAILY SASHA Administration Pantoprazole Sodium 40 mg 09/17/24 09:00 09/18/24 08:06 Pantoprazole 40 Mg Tablet PO 40 mg QAM SASHA Administration Radiology Results: ITS Impressions Chest X-Ray 09/15/24 15:52 IMPRESSION: Asymmetric increased density overlying right apical area; this might represent asymmetric prominent right first costal cartilage calcification, but underlying pulmonary mass density is not excluded. Recommend PA and lateral chest radiographs or CT thorax Chest CT 09/15/24 17:47 IMPRESSION: Several lung opacities are noted as indicated above. Comparison with prior CT chest examination is recommended; if unavailable, [address] chest follow-up examination is recommended. Linear atelectasis or scarring and possible minimal infiltrate of lingula Cholelithiasis Labs Labs: Laboratory Results - last 24 hr 09/17/24 09/17/24 09/17/24 12:04 15:56 19:55 POC Capillary Glucose 380 H 274 H 327 H 09/18/24 07:28 POC Capillary Glucose 331 H
[2024-09-18 12:06] LABS: Glucose Point of Care 355 mg/dl (65-105)
--- NOTE | 2024-09-18 14:00 | PC.NURSE ---
Bed [employer] [facility] [employer] put into use.
--- NOTE | 2024-09-18 14:00 | PC.NURSE ---
Transfer received per hospital bed from IMU to room 320-2.
[2024-09-18] MEDS: levoFLOXacin 750 MG TABLET PO (16:13)
--- NOTE | 2024-09-18 16:36 | P.CONPL_ITS ---
Assessment and Plan Assessment and plan (1) Acute on chronic respiratory failure with hypoxia and hypercapnia: Code(s): J96.21 - Acute and chronic respiratory failure with hypoxia; J96.22 - Acute and chronic respiratory failure with hypercapnia Status: Acute Assessment and Plan: Will need O2 set up before discharge. Admitted with pCO2 86, improved with BiPAP however he says the mask was leaking, making noise, he could not exhale again the pressure on BiPAP 18/8. He is a candidate for AVAPS AE, will be more comfortable, we will give him more appropriate tidal volumes. He needs a better mask fit. This was combination of factors, untreated COPD, ongoing tobacco abuse, untreated obstructive sleep apnea syndrome, may have had a viral infection. He had polycythemia on admission, H&H was 19.1 and 59.8 consistent with chronic hypoxemia. (2) Tobacco use: Code(s): Z72.0 - Tobacco use Status: Acute Assessment and Plan: Started smoking very young age 9-12, smoked up to 2 and half packs per day for decades, over 30 years so at least 75 pack years Had to cut back during the last month due to shortness of breath, he is definitely interested in staying off tobacco. He is going to need tobacco cessation information and support after discharge. (3) KAL (obstructive sleep apnea): Code(s): G47.33 - Obstructive sleep apnea (adult) (pediatric) Status: Acute Assessment and Plan: Had sleep study 10 years ago, not on treatment at this time Current [place] is 11; Follow up with us in clinic. He snores, has witnessed apnea, non-refreshing sleep, wakes multiple time to urinate, no dream recall, naps in the day over the last month as he worsened. Dry mouth on waking. Will try AVAPS, but may have to get out patient sleep study. (4) Shortness of breath on exertion: Code(s): R06.02 - Shortness of breath Status: Acute Assessment and Plan: He has limited ability to walk, has been worse over the last month. I am checking echocardiogram to evaluate cardiac wall motion, valve function, pulmonary hypertension. Plan plan: decrease steroids, solumedrol 40 mg Q 8 hours, transition to oral prednisone. AVAPS AE with sleep tonight, orders entered; plan is to use AVAPS here, go home on treatment, avoid sleep lab. He is without insurance which will be a problem getting any treatment. Echo tomorrow, evaluate for chamber size and function, pulmonary hypertension. Tobacco cessation support. He plans to stay off cigarettes, recently decreased to 1 ppd from 2.5 ppd, started smoking age 11. COPD management. He uses an Advair inhaler as a rescue inhaler,here and there. He will need pulmonary function test, controller medication, Home O2 study , September 19; he plans to leave tomorrow, has plans for the weekend. There was a celebration of life for a dear woman who was like a mother to him. He needs a primary care doctor. He was seeing Dr Salazar until February when he retired and lost insurance, has not been to see anyone since. Follow up with us in clinic after discharge, 2-4 weeks. History of Present Illness History of Present Illness Consult date: 09/18/24 Requesting physician: Siddhartha Espino MD Chief complaint: copd exacerbation, hypoxia Narrative: pt was seen Sep 18, 2024 at 22:15 Room 320 NEW: Ronnie Tadeo is a 54 year old man with shortness of breath worse over the last month. He normally smokes 2 packs a day, has been smoking less due to his shortness of breath. He was hypoxic, saturation was in the 60% range when he was initially seen. [place] [address], procalcitonin 0.1, CRP 1.8. His swabs for viral pathogens influenza a and B, RSV, COVID were all negative. He has improved on IV Solu-Medrol, empiric antibiotics and bronchodilator therapy. 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 He is prediabetic, takes metformin. During this admission on Solu-Medrol blood sugars been elevated, 295. At home he checks his blood sugars and they are generally in the normal range. He is currently on 4 liters/minute with adequate oxygenation. COPD: He has a frequent cough, recently has had increasing sputum production and frequent wheezing. He has Advair inhaler at home, uses it like a rescue inhaler. Also describes having albuterol. He can walk about a city block before having to stop and rest. Chest x-ray had some abnormal areas, this led to a chest CT on 09/15. There is nothing suspicious for malignancy. He had some calcified granulomas. He has apical bullae. His ABGs show acute and chronic hypercapnia with hypoxemia, improve with bipap. He feels much better compared to arrival. He is agreeable to having O2 at home, has bought recreational O2 in cans, helpful, however hard to control. It provides a blast of O2 in the face, and he takes a deep breath and holds it. He has never had COVID. He had the initial series of vaccinations, no additional boosters in the last 2 years. 3 09/15 09/15 09/16 09/17 09/17 pH 7.225 7.204 7.285 7.334 7.37 pCO2 86.5 94.5 62 56.6 59.2 pO2 252.3 84.2 86.8 116.5 461.7 HCO3 35 36.4 28.8 29.4 33.9 sat 99% 93.4% 95% 97.9% 99% O2 delivery non-rebreather BiPAP BiPAP BIPAP BIPAP O2 100% 50% 50% 100% rate IPAP 8 10 8 8 EPAP 16 18 18 18 He has seasonal allergies spring and fall. Sensitive to pollen. Tobacco: Started smoking around the age of 9 or 11, was as high as 2 and half packs per day, when he retired in February this dropped down quite a bit, and during the last month he has been more difficult form to breathe so he has cut down to 1 pack per day. He was vaping marijuana, has not done that in the last month due to shortness of breath. He has not smoked marijuana for 3 years. SLEEP: Had sleep study 10 years ago, not on treatment at this time; has had night terrors. He does not sleep very much, 4 or 5 hours per night at most, never awakens feeling refreshed Current [place] is 11; he does not have irritable feelings in his legs before going to sleep, does not kick while he is sleeping. He snores, has witnessed apnea, non-refreshing sleep, wakes multiple time to urinate, no dream recall, naps in the day over the last month as he worsened. Dry mouth on waking. Will try AVAPs, but may have to get out patient sleep study He started drinking caffeine in the last several weeks, 1 tea and 1 coffee per day on average. No energy drinks. No soda DATA * 09/17; elevated rheumatoid factor 16.9, normal is less than 12 * 09/15/[address] : Computed tomography (CT) of the chest was performed without intravenous contrast. Automated exposure control and iterative reconstruction technique were employed. Exam dose: 1075.37 mGy-cm total exam DLP. COMPARISON: None FINDINGS: There is prominent calcification at the first costochondral junctions, more prominent on the right, likely accounting for the asymmetric increased density overlying the right first costal cartilage junction on the right on the 09/15/2024 portable AP chest. Lung detail in particular is limited due to prominent respiratory motion. There are small bullae in both apical areas. There is an approximately 2 cm irregular area of hypodensity in the upper aspect of the superior segment of the right lower lobe, likely a calcified pulmonary granuloma. Comparison with any prior available CT thorax examinations, if available anywhere, would be helpful to document stability. If not available, [address] chest follow-up is recommended. Nonspecific 5.5 mm nodular density, left upper lobe (series 4 image 52). 5 mm nodular density of the lingula (series 4 image 67) There is mild discoid atelectasis or scarring and suggestion of slight infiltrate in the lingula. No pulmonary infiltrate or consolidation is evident otherwise. No hilar or mediastinal mass lesion or lymphadenopathy. No thoracic aortic aneurysm. Normal heart size. No pericardial or pleural effusion. Normal morphology of the adrenal glands. Incidentally noted is cholelithiasis. Prominent degenerative spurring of the lower thoracic spine. No suspicious osteolytic or osteoblastic lesions are noted. IMPRESSION: Several lung opacities are noted as indicated above. Comparison with prior CT chest examination is recommended; if unavailable, [address] chest follow-up examination is recommended. Linear atelectasis or scarring and possible minimal infiltrate of lingula Cholelithiasis Review of Systems 2 Review of Systems: All systems reviewed & are unremarkable except as noted in HPI and below PMFSH Past Medical History Medical History HTN (hypertension) Seasonal allergies Rheumatoid arthritis Sleep apnea Seizures Vision abnormalities IFG (impaired fasting glucose) HLD (hyperlipidemia) Polyarthralgia Tobacco use Surgical History Surgical History Status post arthroscopic knee surgery History of right knee surgery Has had 5 surgeries total including ACL and meniscus repairs History of left knee surgery 1991-Dr. Erwin, meniscus repair, repair meniscus again by Dr. Mccloud Family History Family History (Updated 09/16/24 @ 03:20 by Felix Adams RN) Mother Malignant neoplasm Other Arthritis Diabetes mellitus Hypertension Social History Social History Smoking packs per day: 1.5 Smoking cigarettes per day: 30.0 Years smoked: 45 Smoking pack-years: 67.50 Smoking status: Current every day smoker Tobacco type: cigarettes Second hand tobacco smoke exposure: Yes Alcohol intake: never Alcohol use details: rare Substance use: current Substance use type: marijuana Last use: 09/12/24 Do You Feel Safe in your Home?: Yes Lack of Transportation: No Lack of Food: Never True Current Housing: I Have Housing Concerned About Future Housing: No Difficulty Paying Gas/Electric Bills: No Difficulty Paying for Meds: No Currently Unemployed: No Education: High School Diploma/GED Difficulty w/ Childcare or Family Care: No Living arrangements: with family Occupation/Education: occupation Gender identity (if verbalized by the patient): Male Sexual Orientation (if Verbalized by the Patient): Straight or Heterosexual Spiritual care concerns: No Meds Home Medications and Allergies Home Medications ?Medication ?Instructions ?Recorded ?Confirmed ?Type atorvastatin 10 mg tablet 80 mg PO HS 03/16/22 09/16/24 History diclofenac sodium 75 mg 75 mg PO HS 03/16/22 09/16/24 History tablet,delayed release aspirin 325 mg tablet 325 mg PO DAILY DVT PROPHYLAXIS 03/22/22 09/16/24 Rx #14 tabs hydrocodone 5 mg-acetaminophen 325 1 tablet PO Q8H PRN pain #30 tabs 03/22/22 09/16/24 Rx mg tablet lisinopril 30 mg tablet 30 mg PO DAILY #90 tabs 03/22/22 09/16/24 Rx Allergies Allergy/AdvReac Type Severity Reaction Status Date / Time codeine AdvReac Unknown nightmares, Verified 09/15/24 16:00 extreme internal ear itching Vital Signs Vital Signs - 24 hr 09/17/24 18:00 09/17/24 19:55 09/17/24 20:00 Temperature 36.6 C Pulse Rate 88 88 84 Respiratory Rate 21 H 22 H Blood Pressure 141/75 H Pulse Oximetry 92 93 Oxygen Delivery Nasal Cannula Oxygen Flow Rate 6 Fraction of Inspired Oxygen 09/17/24 20:00 09/17/24 20:10 09/17/24 20:19 Temperature Pulse Rate 92 92 94 Respiratory Rate 20 20 Blood Pressure Pulse Oximetry Oxygen Delivery Oxygen Flow Rate Fraction of Inspired Oxygen 09/17/24 20:20 09/17/24 22:00 09/17/24 23:34 Temperature Pulse Rate 92 89 Respiratory Rate 25 H Blood Pressure Pulse Oximetry 97 98 Oxygen Delivery Nasal Cannula BiPAP Oxygen Flow Rate 6 Fraction of Inspired Oxygen 09/17/24 23:49 09/18/24 00:00 09/18/24 00:00 Temperature 36.7 C Pulse Rate 89 91 85 Respiratory Rate 25 H 25 H Blood Pressure 151/81 H Pulse Oximetry 98 96 Oxygen Delivery BiPAP Oxygen Flow Rate Fraction of Inspired Oxygen 44 09/18/24 01:21 09/18/24 01:31 09/18/24 01:31 Temperature Pulse Rate 90 92 92 Respiratory Rate 22 H 22 H 22 H Blood Pressure Pulse Oximetry 97 Oxygen Delivery BiPAP Oxygen Flow Rate Fraction of Inspired Oxygen 09/18/24 02:00 09/18/24 04:00 09/18/24 06:00 Temperature Pulse Rate 73 72 71 Respiratory Rate Blood Pressure Pulse Oximetry Oxygen Delivery Oxygen Flow Rate Fraction of Inspired Oxygen 09/18/24 08:00 09/18/24 08:00 09/18/24 08:00 Temperature 36.5 C Pulse Rate 60 93 86 Respiratory Rate 27 H 20 Blood Pressure 163/82 H Pulse Oximetry 97 92 Oxygen Delivery Nasal Cannula Oxygen Flow Rate 5 Fraction of Inspired Oxygen 40 09/18/24 08:47 09/18/24 08:47 09/18/24 09:12 Temperature Pulse Rate 91 93 Respiratory Rate 20 20 Blood Pressure Pulse Oximetry 92 Oxygen Delivery Nasal Cannula Oxygen Flow Rate 5 Fraction of Inspired Oxygen 40 09/18/24 10:00 09/18/24 12:00 09/18/24 12:17 Temperature 36.9 C Pulse Rate 92 84 84 Respiratory Rate 24 H Blood Pressure 156/91 H Pulse Oximetry 90 Oxygen Delivery Oxygen Flow Rate Fraction of Inspired Oxygen 09/18/24 14:58 09/18/24 14:58 09/18/24 15:04 Temperature Pulse Rate 87 88 Respiratory Rate 20 20 Blood Pressure Pulse Oximetry 91 Oxygen Delivery Nasal Cannula Oxygen Flow Rate 4 Fraction of Inspired Oxygen 09/18/24 16:00 Temperature 36.4 C Pulse Rate 81 Respiratory Rate 20 Blood Pressure 163/96 H Pulse Oximetry 90 Oxygen Delivery Oxygen Flow Rate Fraction of Inspired Oxygen Exam 2 Narrative: GEN: Alert, oriented, not in distress. Wearing O2 at 4 L/min. HEENT: pupils are equal, EOMI, symmetrical face; oral membranes moist, Mallampati III airway, upper plate NECK: Trachea is midline CHEST: Equal air entry, symmetric excursion, diffuse expiratory wheezing CV: Regular S1S2 no m/g/r ABD : (+) bowel sounds Extremities : no clubbing, cyanosis, or edema, no rash. PSYCH: normal thought and speech, gait is not tested. Results Laboratory Findings 09/17/24 08:38 09/17/24 08:38 ABG, PT/INR, D-dimer: ABG ABG pH 7.376 (7.350-7.450) 09/17/24 04:58 ABG pCO2 59.2 mmHg (35.0-45.0) H 09/17/24 04:58 ABG pO2 461.7 mmHg (80.0-100.0) H 09/17/24 04:58 ABG O2 Saturation 99.8 % (95.0-100.0) 09/17/24 04:58 PT/INR, D-dimer PT 13.1 Seconds (11.1-14.7) 09/15/24 15:22 INR 1.0 09/15/24 15:22 Abnormal lab findings: Abnormal Labs 09/15/24 09/15/24 09/15/24 15:22 15:40 21:10 WBC 10.5 H RBC 6.21 H Hgb 19.1 H Hct 59.8 H MCHC 31.9 L Immature Gran % (Auto) Neut % (Auto) 78.3 H Lymph % (Auto) 10.1 L [place] % (Auto) Baso % (Auto) Lymph # (Auto) [place] # (Auto) 0.7 H Eos # (Auto) 0.4 H Abs Immat Gran (auto) 0.04 H Absolute Neuts (auto) 8.2 H ABG pH 7.225 L* 7.204 L* ABG pCO2 86.5 H* 94.5 H* ABG pO2 252.3 H ABG HCO3 35.0 H 36.4 H ABG O2 Saturation 93.4 L ABG O2 Content 28.4 H 27.2 H Carboxyhemoglobin 2.2 H Total Hemoglobin 20.6 H 20.8 H Sodium 135 L Potassium Chloride Carbon Dioxide 36 H Anion Gap 1 L BUN Glucose 134 H POC Capillary Glucose Hemoglobin A1c C-Reactive Protein Total Protein 9.0 H TSH (Reflex) 09/16/24 09/16/24 09/16/24 02:12 10:00 18:24 WBC 10.3 H RBC Hgb 18.1 H Hct 57.9 H MCHC 31.3 L Immature Gran % (Auto) Neut % (Auto) 93.1 H Lymph % (Auto) 4.5 L [place] % (Auto) 1.7 L Baso % (Auto) 0.1 L Lymph # (Auto) 0.47 L [place] # (Auto) Eos # (Auto) Abs Immat Gran (auto) 0.05 H Absolute Neuts (auto) 9.6 H ABG pH 7.285 L* 7.334 L ABG pCO2 62.0 H* 56.6 H ABG pO2 116.5 H ABG HCO3 28.8 H 29.4 H ABG O2 Saturation ABG O2 Content 27.1 H 25.1 H Carboxyhemoglobin Total Hemoglobin 20.3 H 18.2 H Sodium 134 L Potassium 5.2 H Chloride 94 L Carbon Dioxide 35 H Anion Gap BUN 25 H D Glucose 202 H POC Capillary Glucose Hemoglobin A1c C-Reactive Protein 1.8 H Total Protein TSH (Reflex) 0.093 L 09/16/24 09/16/24 09/17/24 20:37 23:35 04:58 WBC RBC Hgb Hct MCHC Immature Gran % (Auto) Neut % (Auto) Lymph % (Auto) [place] % (Auto) Baso % (Auto) Lymph # (Auto) [place] # (Auto) Eos # (Auto) Abs Immat Gran (auto) Absolute Neuts (auto) ABG pH ABG pCO2 59.2 H ABG pO2 461.7 H ABG HCO3 33.9 H ABG O2 Saturation ABG O2 Content 26.1 H Carboxyhemoglobin Total Hemoglobin Sodium Potassium 5.3 H Chloride Carbon Dioxide Anion Gap BUN Glucose POC Capillary Glucose 277 H Hemoglobin A1c 6.5 H C-Reactive Protein Total Protein TSH (Reflex) 09/17/24 09/17/24 09/17/24 08:19 08:38 12:04 WBC 15.4 H RBC Hgb 18.2 H Hct 58.4 H MCHC 31.2 L Immature Gran % (Auto) 0.6 H Neut % (Auto) 92.6 H Lymph % (Auto) 3.1 L [place] % (Auto) Baso % (Auto) 0.1 L Lymph # (Auto) 0.48 L [place] # (Auto) Eos # (Auto) Abs Immat Gran (auto) 0.10 H Absolute Neuts (auto) 14.3 H ABG pH ABG pCO2 ABG pO2 ABG HCO3 ABG O2 Saturation ABG O2 Content Carboxyhemoglobin Total Hemoglobin Sodium 131 L Potassium Chloride 97 L Carbon Dioxide 31 H Anion Gap 3 L BUN 31 H Glucose 304 H POC Capillary Glucose 284 H 380 H Hemoglobin A1c C-Reactive Protein Total Protein TSH (Reflex) 09/17/24 09/17/24 09/18/24 15:56 19:55 07:28 WBC RBC Hgb Hct MCHC Immature Gran % (Auto) Neut % (Auto) Lymph % (Auto) [place] % (Auto) Baso % (Auto) Lymph # (Auto) [place] # (Auto) Eos # (Auto) Abs Immat Gran (auto) Absolute Neuts (auto) ABG pH ABG pCO2 ABG pO2 ABG HCO3 ABG O2 Saturation ABG O2 Content Carboxyhemoglobin Total Hemoglobin Sodium Potassium Chloride Carbon Dioxide Anion Gap BUN Glucose POC Capillary Glucose 274 H 327 H 331 H Hemoglobin A1c C-Reactive Protein Total Protein TSH (Reflex) 09/18/24 11:25 WBC RBC Hgb Hct MCHC Immature Gran % (Auto) Neut % (Auto) Lymph % (Auto) [place] % (Auto) Baso % (Auto) Lymph # (Auto) [place] # (Auto) Eos # (Auto) Abs Immat Gran (auto) Absolute Neuts (auto) ABG pH ABG pCO2 ABG pO2 ABG HCO3 ABG O2 Saturation ABG O2 Content Carboxyhemoglobin Total Hemoglobin Sodium Potassium Chloride Carbon Dioxide Anion Gap BUN Glucose POC Capillary Glucose 355 H Hemoglobin A1c C-Reactive Protein Total Protein TSH (Reflex)
[2024-09-18 16:38] LABS: Glucose Point of Care 312 mg/dl (65-105)
[2024-09-18] MEDS: ATORVASTATIN 40 MG TABLET 80 MG PO (21:10)
[2024-09-18] MEDS: DICLOFENAC SOD 75 MG TABLET.EC PO (21:10)
[2024-09-18] MEDS: INSULIN GLARGINE (*BKC) 100 UNITS/ML 20 UNITS SUB-Q (21:17)
[2024-09-18] MEDS: MORPHINE SULFATE (*CRX) 2 MG/ML INJ IV PUSH (21:22)
[2024-09-18 22:00] LABS: Glucose Point of Care 295 mg/dl (65-105)
[2024-09-19] VITALS (16 sets, daily range): BP systolic 144–164; BP diastolic 86–97; PULSE 80–95; RESP 16–24; TEMP 36.2–36.6; O2SAT 84–100
--- NOTE | 2024-09-19 | ECHO_ITS ---
Patient Info Name: Ronnie Tadeo Age: 54 years : 1970 Gender: Male Ht: 79 in Wt: 360 lbs BSA: 3.07 m2 HR: 82 bpm BP: 164 / 97 mmHg Heart Rhythm: Sinus Rhythm Technical Quality: Fair Exam Date: 09/19/2024 11:14 AM Exam Location: Echo Lab Exam Room: [facility] Patient Status: Inpatient Admit Date: 09/16/2024 Staff Ordering Physician: Jacque Dumont MD Compounding Assistant: Brittany Gaines RDCS Attending Provider: Virgil Luciano MD Referring Physician: Tim GARCIA; Exam Type: CA echo doppler color flow Study Info Complete two-dimensional, color flow and Doppler transthoracic echocardiogram is performed. Summary 1. Complete two-dimensional, color flow and Doppler transthoracic echocardiogram is performed. 2. The left ventricle is moderately dilated measuring 6.3 cm in diameter; however this may be normal when indexed to body surface area. The left ventricular ejection fraction is visually estimated to be 55-60%. 3. The right ventricle is normal in size and systolic function. 4. There is no significant valvular disease noted in this study. Left Ventricle The left ventricle is moderately dilated measuring 6.3 cm in diameter; however this may be normal when indexed to body surface area. The left ventricular ejection fraction is visually estimated to be 55-60%. Right Ventricle The right ventricle is normal in size and systolic function. Left Atria The left atrium is normal size. Right Atria The right atrium is normal size. Aortic Valve The aortic valve is trileaflet and opens well. There is no aortic regurgitation. Pulmonic Valve The pulmonic valve is grossly normal. There is no color Doppler evidence of pulmonic valve regurgitation. Mitral Valve The mitral valve is normal. There is no mitral regurgitation. Tricuspid Valve The tricuspid valve is normal. There is trace tricuspid regurgitation. Pericardium/Pleural Prominent epicardial fat pad. Inferior Vena Cava Inferior vena cava is not well visualized. Aorta The aortic root at the level of the sinus of Valsalva measures 3.0 cm in diameter. Left Ventricular Outflow Tract Name Value Normal LVOT 2D LVOT Diameter 2.5 cm LVOT Doppler LVOT Peak Gradient 8 mmHg LVOT Mean Gradient 5 mmHg LVOT VTI 31 cm LVOT VTI/AV VTI Ratio 0.9 LVOT Stroke Volume 145 ml LVOT CO 11.1 l/min LVOT CI 3.6 l/min/m2 Pulmonic Valve Name Value Normal PV Doppler PV Peak Gradient 6 mmHg Mitral Valve Name Value Normal MV Doppler MV Peak Gradient 5 mmHg MV Mean Gradient 2 mmHg MV Decel [place] 370 cm/s2 MV PHT 66 ms MV Area (PHT) 3.4 cm2 4.0-5.0 MV Area (Cont Eq VTI) 5.0 cm2 MV Diastolic Function MV E Peak Velocity 84 cm/s MV A Peak Velocity 98 cm/s MV E/A 0.9 MV Decel Time 226 ms MV Annular TDI MV E/e' (Septal) 9.6 <=8.0 MV E/e' (Lateral) 7.8 <=8.0 MV E/e' (Average) 8.7 Tricuspid Valve Name Value Normal TV Regurgitation Doppler TR Peak Velocity 156 cm/s TR Peak Gradient 10 mmHg Aortic Valve Name Value Normal AV Doppler AV Peak Velocity 172 cm/s AV Peak Gradient 12 mmHg AV Mean Gradient 6 mmHg AV VTI 35 cm AV Area (Cont Eq VTI) 4.1 cm2 >=3.0 AV Area (Cont Eq Lv) 3.9 cm2 AV Regurgitation 2D LVOT Area 4.7 cm2 Ventricles Name Value Normal LV Dimensions 2D/MM IVS Diastolic Thickness (2D) 1.0 cm 0.6-1.0 LVID Diastole (2D) 6.3 cm 4.2-5.8 LVIW Diastolic Thickness (2D) 1.1 cm 0.6-1.0 LVID Systole (2D) 4.7 cm 2.5-4.0 LVOT Diameter 2.5 cm LV Mass (2D Cubed) 275.16 g 88.00-224.00 LV Mass Index (2D Cubed) 89 g/m2 49-115 Relative Wall Thickness (2D) 0.34 LV Fractional Shortening/Ejection Fraction 2D/MM LV Fractional Shortening (2D) 25 % 25-43 LV EF (2D Teicholz) 49 % 52-72 LV Diastolic Volume (4C MOD) 213 ml LV EF (4C MOD) 67 % LV Diastolic Length (4C) 9.7 cm LV Systolic Length (4C) 7.7 cm LV Stroke Volume (4C MOD) 142 ml Atria Name Value Normal LA Dimensions LA Volume (4C A-L) 81 ml RA Dimensions RA Area (4C) 16.9 cm2 <=18.0 Report Signatures
[2024-09-19] MEDS: IPRATROPIUM 0.5 MG/ALBUTEROL SULFATE 2.5 MG AMPUL.NEB 3 ML INHALATION ×3 (01:50→21:20)
--- NOTE | 2024-09-19 04:32 | PCRCNOTE ---
Window of time for administration has passed. See next scheduled administration.
[2024-09-19] MEDS: methylPREDNISolone SOD SUCC 40 MG VIAL IV PUSH ×3 (06:03→21:00)
[2024-09-19 08:17] LABS: Glucose Point of Care 313 mg/dl (65-105)
[2024-09-19] MEDS: INSULIN ASPART (*BKC) 100 UNITS/ML SUB-Q ×3 (08:33→16:50)
[2024-09-19] MEDS: ASPIRIN 325 MG TABLET PO (08:35)
[2024-09-19] MEDS: ENOXAPARIN 40 MG/0.4 ML SYRINGE SUB-Q (08:35)
[2024-09-19] MEDS: NICOTINE (*PBKC) 21 MG PATCH 1 PATCH TRANSDERM (08:35)
[2024-09-19] MEDS: PANTOPRAZOLE 40 MG TABLET PO (08:35)
--- NOTE | 2024-09-19 11:20 | PM.IMPN ---
Progress Note: A&P Assessment and Plan (1) Acute hypercapnic respiratory failure: Code(s): J96.02 - Acute respiratory failure with hypercapnia Status: Acute Assessment and Plan: Patient presents with SOB and was 96% requiring 15L NRB. ABG 7.22/86/252 on 15L NRB. CXR showing possible right apical mass. CT chest without contrast showing several lung opacities including a 2cm RLL calcified nodule possibly granuloma, linear atelectasis and cholelithiasis. He was started on BiPAP now at 18/10 with ABG showing 7.29/62/87. BiPAP settings adjusted and ABG this mornin.38/59/461 on 100% FiO2 (not sure why on 100%) Suspect related to COPD exacerbation worsened by untreated KAL. Pulmonary consult since he will probably need NV at discharge and close followup. Wean Bipap off today while awake but continue at bed, naps and prn for SOB. 09/19/2024 Patient is gradually getting better. Requiring less BiPAP. Plan is to continue current treatment monitor closely. Repeat chest x-ray showed lung nodule, pulmonary following. (2) COPD exacerbation: Code(s): J44.1 - Chronic obstructive pulmonary disease with (acute) exacerbation Status: Acute Assessment and Plan: Patient with extensive smoking hx. Presents with SOB and found to have acute resp failure. Imaging and ABG as above. WBC 10K, PCT 0.1. CRP 1.8. Influenza, COVID and RSV PCR nega/tive. Started on IV Solu-Medrol, abx and Duonebs. / Improved air exchange and he appears more comfortable. BCx NGTD. Sputum Cx was not performed. Urine Ag pending Continue abx given the productive cough. Continue Duonebs and Solu-Medrol 09/19/2024 Patient has a getting better. Plan is to continue with antibiotic , DuoNebs and steroids. Monitor closely. (3) HTN (hypertension): Code(s): I10 - Essential (primary) hypertension Status: Acute Assessment and Plan: Patient's blood pressure was reviewed on 09/17 Blood pressure was elevated on admission felt related to resp failure. BP better controlled now. May have poorly controlled BP at home due to untreated KAL. 09/19/2024 Stable on current medications, will continue current treatment (4) KAL (obstructive sleep apnea): Code(s): G47.33 - Obstructive sleep apnea (adult) (pediatric) Status: Acute Assessment and Plan: As above. Patient will need apnea link when he is close to discharge (5) Rheumatoid arthritis: Code(s): M06.9 - Rheumatoid arthritis, unspecified Status: Acute Assessment and Plan: Patient has rheumatoid arthritis but is not on immune modulators. He only takes diclofenac which will continue. Added Protonix for gastric protection given he is on NSAIDs, steroids and aspirin. RF 16.9 Consider RA could be contributing to his lung findings. (6) IFG (impaired fasting glucose): Code(s): R73.01 - Impaired fasting glucose Status: Acute Assessment and Plan: A1c 6.5% Patient has impaired fasting glucose noted on past medical history. The patient's blood glucose was reviewed on 09/17 Glucose remains poorly controlled related to steroids. Continue AccuCheks covering with sliding scale. Hypoglycemia protocol available as needed. Add lantus. (7) HLD (hyperlipidemia): Code(s): E78.5 - Hyperlipidemia, unspecified Status: Acute Assessment and Plan: LFTs are normal. Continue atorvastatin. (8) Tobacco use: Code(s): Z72.0 - Tobacco use Status: Acute Assessment and Plan: Patient was educated about the benefits of smoking cessation.. (9) Polycythemia: Code(s): D75.1 - Secondary polycythemia Status: Acute Assessment and Plan: Polycythemia present on admission with hgb 18-19 range. Suspect related to chronic nocturnal hypoxia. Will need sleep study. Plan DVT Prophylaxis - Lovenox Code status - Full Subjective Date/time seen: 09/19/24 11:20 Interval history: 09/19/2024 Patient was seen during the morning rounds today. 54yo male with tobacco abuse, RA and HTN here for shortness fo breath. No new overnight complaints. Patient tolerated the bipap last night. Mild sob, no chest pain. Review of Systems Review of Systems: ROS unobtainable: Yes unobtainable due to medical condition (Respiratory failure on BiPAP) Exam Narrative: Vital signs stable Gen - NARD Chest - Air enrty is better CV - RRR S1/S2; Tele showing a few episodes of bigeminy Abd - Soft, obese, NT Ext - No pedal edema. Psych - Normal mood and affect Skin - Warm and dry Const: General: comfortable, no acute distress, well developed, alert, awake, patient obtunded (Initially) and obese Nutritional Appearance: obese Orientation/consciousness: patient oriented x3 and patient obtunded (Initially) Other: Awake alert oriented x3 HENMT: Head: normal to inspection, normocephalic and atraumatic Ears: hearing grossly normal bilaterally Face/Nose/Sinus: normal facial exam Face and sinus: normal facial exam Eyes: General: appearance normal, both eyes and all related structures Pupils: Equal, round and reactive pupils present EOM: EOMs intact bilaterally Neck: Neck: full ROM, no lymphadenopathy and no JVD Thyroid: thyroid normal Lymphatic: no lymphadenopathy noted Resp: Effort & Inspection: normal respiratory effort and able to speak in complete sentences Auscultation: clear to auscultation bilaterally and diminished lung sounds Cardio: Jugular venous distension: no JVD Rate: regular rate Rhythm: regular rhythm Heart sounds: S1 normal heart sound present and S2 normal heart sound present : General: Yes deferred Skin: Rashes: no rashes Wounds: no wounds Neuro: General: patient oriented x3, CN's II-XI intact bilaterally and patient obtunded (Initially) Cranial nerves: Yes CN's II-XII intact bilaterally and Yes Equal, round and reactive pupils present Cognition (Neuro): normal cognition Speech: normal speech Gait exam (Neuro): Normal gait present Motor exam (neuro): 5/5 motor strength present throughout Extrem: General: normal to inspection, full ROM, no joint enlargement and no pedal edema Objective Data Vital Signs Vital Signs: Vital Signs - 24 hr 09/18/24 12:00 09/18/24 12:17 09/18/24 14:58 Temperature 36.9 C Pulse Rate 84 84 Respiratory Rate 24 H Blood Pressure 156/91 H Pulse Oximetry 90 91 Oxygen Delivery Nasal Cannula Oxygen Flow Rate 4 09/18/24 14:58 09/18/24 15:04 09/18/24 16:00 Temperature 36.4 C Pulse Rate 87 88 81 Respiratory Rate 20 20 20 Blood Pressure 163/96 H Pulse Oximetry 90 Oxygen Delivery Oxygen Flow Rate 09/18/24 20:00 09/18/24 20:00 09/18/24 20:08 Temperature Pulse Rate 102 H 100 Respiratory Rate 20 20 Blood Pressure Pulse Oximetry 92 Oxygen Delivery Nasal Cannula Oxygen Flow Rate 4 09/18/24 22:00 09/19/24 01:50 09/19/24 02:00 Temperature 36.4 C L Pulse Rate 86 91 91 Respiratory Rate 20 20 22 H Blood Pressure 140/83 Pulse Oximetry 91 92 Oxygen Delivery BiPAP Oxygen Flow Rate 09/19/24 02:00 09/19/24 06:13 09/19/24 08:00 Temperature 36.6 C 36.2 C L Pulse Rate 94 80 82 Respiratory Rate 20 24 H 16 Blood Pressure 145/86 H 164/97 H Pulse Oximetry 100 94 Oxygen Delivery Oxygen Flow Rate 09/19/24 08:00 09/19/24 10:15 09/19/24 10:16 Temperature Pulse Rate Respiratory Rate Blood Pressure Pulse Oximetry 94 84 L 86 L Oxygen Delivery Nasal Cannula Room Air Nasal Cannula Oxygen Flow Rate 4 2 09/19/24 10:17 09/19/24 10:18 09/19/24 10:20 Temperature Pulse Rate 80 93 Respiratory Rate Blood Pressure Pulse Oximetry 87 L 92 89 L Oxygen Delivery Nasal Cannula Nasal Cannula Nasal Cannula Oxygen Flow Rate 3 4 4 09/19/24 10:30 Temperature Pulse Rate 89 Respiratory Rate Blood Pressure Pulse Oximetry 91 Oxygen Delivery Nasal Cannula Oxygen Flow Rate 4 Intake/Output Intake/Output: Intake & Output 09/16/24 09/17/24 09/18/24 09/19/24 23:59 23:59 23:59 23:59 Intake Total 2290 1870 1600 1000 Output Total 700 1550 850 850 Balance 1590 320 750 150 Meds/Results Medications: Active Medications Generic Name Dose Route Start Last Admin Trade Name Freq PRN Reason Stop Dose Admin Acetaminophen 650 mg 09/15/24 17:55 Acetaminophen 325 Mg Tablet PO Q4H PRN Mild Pain (1-3) or Fever Hydrocodone Bitart/Acetaminophen 1 tab 09/15/24 17:55 09/17/24 20:25 Hydrocodone/Acetaminophen (*Crx) 5-325 Mg Tablet PO 1 tab Q4H PRN Administration Pain Rated 4-6 Albuterol/Ipratropium 3 ml 09/15/24 20:00 09/19/24 01:50 Ipratropium 0.5 Mg/Albuterol Sulfate 2.5 Mg Ampul.Neb 3 Ml INHALATION 3 ml Q6HRT SASHA Administration Aspirin 325 mg 09/17/24 09:00 09/19/24 08:35 Aspirin 325 Mg Tablet PO 325 mg DAILY SASHA Administration Atorvastatin Calcium 80 mg 09/16/24 21:00 09/18/24 21:10 Atorvastatin 40 Mg Tablet PO 80 mg HS SASHA Administration Dextrose 12.5 gm 09/16/24 17:07 Dextrose 50% 25 Gm/50 Ml Syringe IV PUSH PRN PRN Hypoglycemia Protocol Diclofenac Sodium 75 mg 09/16/24 21:00 09/18/24 21:10 Diclofenac Sod 75 Mg Tablet.Ec PO 75 mg HS SASHA Administration Enoxaparin Sodium 40 mg 09/17/24 09:00 09/19/24 08:35 Enoxaparin 40 Mg/0.4 Ml Syringe SUB-Q 40 mg DAILY SASHA Administration Glucagon 1 mg 09/16/24 17:07 Glucagon For Inj 1 Mg Vial IM PRN PRN Hypoglycemia Protocol Glucose 15 gm 09/16/24 17:07 Glucose Oral Gel 15 Gm Of Glucse In 37.5 Gm Tube PO PRN PRN Hypoglycemia Protocol Dextrose 1,000 mls @ 100 mls/hr 09/16/24 17:07 Dextrose 5% 1,000 Ml IVPB PRN PRN Hypoglycemia Protocol Insulin Aspart 4 - 8 units 09/17/24 08:00 09/19/24 08:33 Insulin Aspart (*Bkc) 100 Units/Ml SUB-Q 6 units TIDWM SASHA Administration Protocol Insulin Glargine 20 units 09/17/24 21:00 09/18/24 21:17 Insulin Glargine (*Bkc) 100 Units/Ml SUB-Q 20 units HS SASHA Administration Levofloxacin 750 mg 09/16/24 17:00 09/18/24 16:13 Levofloxacin 750 Mg Tablet PO 750 mg Q24H SASHA Administration Methylprednisolone Sodium Succinate 40 mg 09/19/24 06:00 09/19/24 06:03 Methylprednisolone Sod Succ 40 Mg Vial IV PUSH 40 mg Q8HR SASHA Administration Morphine Sulfate 2 mg 09/15/24 17:55 09/18/24 21:22 Morphine Sulfate (*Crx) 2 Mg/Ml Inj IV PUSH 2 mg Q2H PRN Administration Pain Rated 7-10 Nicotine 1 patch 09/16/24 15:25 09/19/24 08:35 Nicotine (*Pbkc) 21 Mg Patch TRANSDERM 1 patch DAILY SASHA Administration Pantoprazole Sodium 40 mg 09/17/24 09:00 09/19/24 08:35 Pantoprazole 40 Mg Tablet PO 40 mg QAM SASHA Administration Perflutren Lipid Microsphere 0 ml 09/18/24 22:46 Perflutren Lipid Microspheres 1.5 Ml Vial Diluted To 10 Ml Total Volume IV PUSH 09/21/24 22:48 ONCE PRN adequate visualization Protocol Radiology Results: ITS Impressions Chest CT 09/15/24 17:47 IMPRESSION: Several lung opacities are noted as indicated above. Comparison with prior CT chest examination is recommended; if unavailable, [address] chest follow-up examination is recommended. Linear atelectasis or scarring and possible minimal infiltrate of lingula Cholelithiasis Chest X-Ray 09/19/24 06:29 IMPRESSION: 1. 2 cm nodule in superior segment right lower lobe suspicious for primary bronchogenic carcinoma. Noncontrast low-dose chest CT is recommended in 1-3 months. Labs Labs: Laboratory Results - last 24 hr 09/18/24 09/18/24 09/18/24 11:25 16:36 21:03 POC Capillary Glucose 355 H 312 H 295 H 09/19/24 08:07 POC Capillary Glucose 313 H
[2024-09-19 11:34] LABS: Glucose Point of Care 392 mg/dl (65-105)
[2024-09-19 15:03] LABS: Pneumococcal Antigen Urine NOT DETECTED
--- NOTE | 2024-09-19 16:27 | P.PNPL_ITS ---
Progress Note: A&P Assessment and Plan (1) Acute on chronic respiratory failure with hypoxia and hypercapnia: Code(s): J96.21 - Acute and chronic respiratory failure with hypoxia; J96.22 - Acute and chronic respiratory failure with hypercapnia Status: Acute Assessment and Plan: Improved. This was combination of factors, untreated COPD, ongoing tobacco abuse, untreated obstructive sleep apnea syndrome, may have had a viral infection. He had polycythemia on admission, H&H was 19.1 and 59.8 consistent with chronic hypoxemia. He completed his Home O2 study, requires 4 L/min around the clock. He has portable O2 ready to use on his way home, will get concentrator at home tomorrow. Admitted with pCO2 86, improved with BiPAP however he says the mask was leaking, making noise, he could not exhale again the pressure on BiPAP 18/8. He had a much better experience on AVAPS AE last night, slept a total of 9 hours, urinated once, feels rested. (2) Tobacco use: Code(s): Z72.0 - Tobacco use Status: Acute Assessment and Plan: Started smoking very young age 10-12, smoked up to 2 and half packs per day for decades, over 30 years so at least 75 pack years Had to cut back during the last month due to shortness of breath, he is definitely interested in staying off tobacco. He is going to need tobacco cessation information and support after discharge. (3) KAL (obstructive sleep apnea): Code(s): G47.33 - Obstructive sleep apnea (adult) (pediatric) Status: Acute Assessment and Plan: Had sleep study 10 years ago, not on treatment at this time. Current [place] is 11; Follow up with us in clinic. He snores, has witnessed apnea, non-refreshing sleep, wakes multiple time to urinate, no dream recall, naps in the day over the last month as he worsened. Dry mouth on waking. He responded well to AVAPS overnight. Will use again tonight. (4) Shortness of breath on exertion: Code(s): R06.02 - Shortness of breath Status: Acute Assessment and Plan: He has limited ability to walk, has been worse over the last month. I am checking echocardiogram to evaluate cardiac wall motion, valve function, pulmonary hypertension. (5) COPD exacerbation: Code(s): J44.1 - Chronic obstructive pulmonary disease with (acute) exacerbation Status: Acute Assessment and Plan: Improved. Plan plan: 1) Change to oral steroids, now on solumedrol 40 mg Q 8 hours, transition to oral prednisone. 2) Again tonight AVAPS AE with sleep, dose not have insurance to start this at home. 3) Echo completed, results pending. Will check tomorrow. 4) Tobacco cessation support. He plans to stay off cigarettes, recently decreased to 1 ppd from 2.5 ppd, started smoking age 11. 5) Out patient COPD management. He uses an Advair inhaler as a rescue inhaler,here and there. He needs to go home on controller therapy. 6) Out patient pulmonary appointment in 3-4 weeks. In 6 weeks, out patient pulmonary function test, Home O2 study to see if his needs have changes, discuss pulmonary rehab. 7) He needs a primary care doctor. He was seeing Dr Salazar until February when he retired and lost insurance, has not been to see anyone since. I am anticipating that he can be discharged tomorrow. Subjective Date/time seen: 09/19/24 16:27 Interval history: 09/19/24, follow up hospital visit; He says that using AVAP last night was the best sleep that he has had in 20 years. Slept 6 hours, wake once to urinate, and returned to sleep for 3 more hours. He has been less sleepy today. Home O2 study showed that he needs 4 L/min with rest and 4 L/min with exertion. Ech ois complete, results are pending. He is feeling much better, will plan to change his solumedrol to oral prednisone and discharge tomorrow. He has no insurance, therefore will not be able to go home with an AVAPS or bipap. He is going to pay for his O2 out of pocket. 09/18/24; New pulmonary consultation Sep 18, 2024 at 22:15 Room 320 ; Ronnie Tadeo is a 54 year old man with shortness of breath worse over the last month. He normally smokes 2 packs a day, has been smoking less due to his shortness of breath. He was hypoxic, saturation was in the 60% range when he was initially seen. [place] [address], procalcitonin 0.1, CRP 1.8. His swabs for viral pathogens influenza a and B, RSV, COVID were all negative. He has improved on IV Solu-Medrol, empiric antibiotics and bronchodilator therapy. 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 He is prediabetic, takes metformin. During this admission on Solu-Medrol blood sugars been elevated, 295. At home he checks his blood sugars and they are generally in the normal range. He is currently on 4 liters/minute with adequate oxygenation. COPD: He has a frequent cough, recently has had increasing sputum production and frequent wheezing. He has Advair inhaler at home, uses it like a rescue inhaler. Also describes having albuterol. He can walk about a city block before having to stop and rest. Chest x-ray had some abnormal areas, this led to a chest CT on 09/15. There is nothing suspicious for malignancy. He had some calcified granulomas. He has apical bullae. His ABGs show acute and chronic hypercapnia with hypoxemia, improve with bipap. He feels much better compared to arrival. He is agreeable to having O2 at home, has bought recreational O2 in cans, helpful, however hard to control. It provides a blast of O2 in the face, and he takes a deep breath and holds it. He has never had COVID. He had the initial series of vaccinations, no additional boosters in the last 2 years. 09/15 09/15 09/16 09/17 09/17 pH 7.225 7.204 7.285 7.334 7.37 pCO2 86.5 94.5 62 56.6 59.2 pO2 252.3 84.2 86.8 116.5 461.7 HCO3 35 36.4 28.8 29.4 33.9 sat 99% 93.4% 95% 97.9% 99% O2 delivery non-rebreather BiPAP BiPAP BIPAP BIPAP O2 100% 50% 50% 100% rate IPAP 8 10 8 8 EPAP 16 18 18 18 He has seasonal allergies spring and fall. Sensitive to pollen. Tobacco: Started smoking around the age of 9 or 11, was as high as 2 and half packs per day, when he retired in February this dropped down quite a bit, and during the last month he has been more difficult form to breathe so he has cut down to 1 pack per day. He was vaping marijuana, has not done that in the last month due to shortness of breath. He has not smoked marijuana for 3 years. SLEEP: Had sleep study 10 years ago, not on treatment at this time; has had night terrors. He does not sleep very much, 4 or 5 hours per night at most, never awakens feeling refreshedCurrent [place] is 11; he does not have irritable feelings in his legs before going to sleep, does not kick while he is sleeping. He snores, has witnessed apnea, non-refreshing sleep, wakes multiple time to urinate, no dream recall, naps in the day over the last month as he worsened. Dry mouth on waking. Will try AVAPs, but may have to get out patient sleep study. He started drinking caffeine in the last several weeks, 1 tea and 1 coffee per day on average. No energy drinks. No soda \ DATA * 09/17; elevated rheumatoid factor 16.9, normal is less than 12 * 09/15/[address] : Computed tomography (CT) of the chest was performed without intravenous contrast. Automated exposure control and iterative re construction technique were employed. Exam dose: 1075.37 mGy-cm total exam DLP. COMPARISON: None FINDINGS: There is prominent calcification at the first costochondral junctions, more prominent on the right, likely accounting for the asymmetric increased density overlying the right first costal cartilage junction on the right on the 09/15/2024 portable AP chest. Lung detail in particular is limited due to prominent respiratory motion. There are small bullae in both apical areas. There is an approximately 2 cm irregular area of hypodensity in the upper aspect of the superior segment of the right lower lobe, likely a calcified pulmonary granuloma. Comparison with any prior available CT thorax examinations, if available anywhere, would be helpful to document stability. If not available, [address] chest follow-up is recommended. Nonspecific 5.5 mm nodular density, left upper lobe (series 4 image 52). 5 mm nodular density of the lingula (series 4 image 67) There is mild discoid atelectasis or scarring and suggestion of slight infiltrate in the lingula. No pulmonary infiltrate or consolidation is evident otherwise. No hilar or mediastinal mass lesion or lymphadenopathy. No thoracic aortic aneurysm. Normal heart size. No pericardial or pleural effusion. Normal morphology of the adrenal glands. Incidentally noted is cholelithiasis. Prominent degenerative spurring of the lower thoracic spine. No suspicious osteolytic or osteoblastic lesions are noted. IMPRESSION: Several lung opacities are noted as indicated above. Comparison with prior CT chest examination is recommended; if unavailable, [address] chest follow-up examination is recommended. Linear atelectasis or scarring and possible minimal infiltrate of lingula. Cholelithiasis Review of Systems Review of Systems: All systems reviewed & are unremarkable except as noted in HPI and below Exam Narrative: GEN: Alert, oriented, not in distress. Wearing O2 at 4 L/min. HEENT: pupils are equal, EOMI, symmetrical face; oral membranes moist, Mallampati III airway, upper plate NECK: Trachea is midline CHEST: Equal air entry, symmetric excursion, diffuse expiratory wheezing CV: Regular S1S2 no m/g/r ABD : (+) bowel sounds Extremities : no clubbing, cyanosis, or edema, no rash. PSYCH: normal thought and speech, gait is not tested. Objective Data Vital Signs Vital Signs: Vital Signs - 24 hr 09/18/24 20:00 09/18/24 20:00 09/18/24 20:08 Temperature Pulse Rate 102 H 100 Respiratory Rate 20 20 Blood Pressure Pulse Oximetry 92 Oxygen Delivery Nasal Cannula Oxygen Flow Rate 4 09/18/24 22:00 09/19/24 01:50 09/19/24 02:00 Temperature 36.4 C L Pulse Rate 86 91 91 Respiratory Rate 20 20 22 H Blood Pressure 140/83 Pulse Oximetry 91 92 Oxygen Delivery BiPAP Oxygen Flow Rate 09/19/24 02:00 09/19/24 06:13 09/19/24 08:00 Temperature 36.6 C 36.2 C L Pulse Rate 94 80 82 Respiratory Rate 20 24 H 16 Blood Pressure 145/86 H 164/97 H Pulse Oximetry 100 94 Oxygen Delivery Oxygen Flow Rate 09/19/24 08:00 09/19/24 10:15 09/19/24 10:16 Temperature Pulse Rate Respiratory Rate Blood Pressure Pulse Oximetry 94 84 L 86 L Oxygen Delivery Nasal Cannula Room Air Nasal Cannula Oxygen Flow Rate 4 2 09/19/24 10:17 09/19/24 10:18 09/19/24 10:20 Temperature Pulse Rate 80 93 Respiratory Rate Blood Pressure Pulse Oximetry 87 L 92 89 L Oxygen Delivery Nasal Cannula Nasal Cannula Nasal Cannula Oxygen Flow Rate 3 4 4 09/19/24 10:30 09/19/24 14:00 09/19/24 14:00 Temperature Pulse Rate 89 90 Respiratory Rate 20 Blood Pressure Pulse Oximetry 91 93 Oxygen Delivery Nasal Cannula Nasal Cannula Oxygen Flow Rate 4 3.5 Intake/Output Intake/Output: Intake & Output 09/16/24 09/17/24 09/18/24 09/19/24 23:59 23:59 23:59 23:59 Intake Total 2290 1870 1600 1480 Output Total 700 1550 850 850 Balance 1590 320 750 630 Meds/Results Medications: Active Medications Generic Name Dose Route Start Last Admin Trade Name Freq PRN Reason Stop Dose Admin Acetaminophen 650 mg 09/15/24 17:55 Acetaminophen 325 Mg Tablet PO Q4H PRN Mild Pain (1-3) or Fever Hydrocodone Bitart/Acetaminophen 1 tab 09/15/24 17:55 09/17/24 20:25 Hydrocodone/Acetaminophen (*Crx) 5-325 Mg Tablet PO 1 tab Q4H PRN Administration Pain Rated 4-6 Albuterol/Ipratropium 3 ml 09/15/24 20:00 09/19/24 14:00 Ipratropium 0.5 Mg/Albuterol Sulfate 2.5 Mg Ampul.Neb 3 Ml INHALATION 3 ml Q6HRT SASHA Administration Aspirin 325 mg 09/17/24 09:00 09/19/24 08:35 Aspirin 325 Mg Tablet PO 325 mg DAILY SASHA Administration Atorvastatin Calcium 80 mg 09/16/24 21:00 09/18/24 21:10 Atorvastatin 40 Mg Tablet PO 80 mg HS SASHA Administration Dextrose 12.5 gm 09/16/24 17:07 Dextrose 50% 25 Gm/50 Ml Syringe IV PUSH PRN PRN Hypoglycemia Protocol Diclofenac Sodium 75 mg 09/16/24 21:00 09/18/24 21:10 Diclofenac Sod 75 Mg Tablet.Ec PO 75 mg HS SASHA Administration Enoxaparin Sodium 40 mg 09/17/24 09:00 09/19/24 08:35 Enoxaparin 40 Mg/0.4 Ml Syringe SUB-Q 40 mg DAILY SASHA Administration Glucagon 1 mg 09/16/24 17:07 Glucagon For Inj 1 Mg Vial IM PRN PRN Hypoglycemia Protocol Glucose 15 gm 09/16/24 17:07 Glucose Oral Gel 15 Gm Of Glucse In 37.5 Gm Tube PO PRN PRN Hypoglycemia Protocol Dextrose 1,000 mls @ 100 mls/hr 09/16/24 17:07 Dextrose 5% 1,000 Ml IVPB PRN PRN Hypoglycemia Protocol Insulin Aspart 4 - 8 units 09/17/24 08:00 09/19/24 11:53 Insulin Aspart (*Bkc) 100 Units/Ml SUB-Q 8 units TIDWM SASHA Administration Protocol Insulin Glargine 20 units 09/17/24 21:00 09/18/24 21:17 Insulin Glargine (*Bkc) 100 Units/Ml SUB-Q 20 units HS SASHA Administration Levofloxacin 750 mg 09/16/24 17:00 09/18/24 16:13 Levofloxacin 750 Mg Tablet PO 750 mg Q24H SASHA Administration Methylprednisolone Sodium Succinate 40 mg 09/19/24 06:00 09/19/24 13:30 Methylprednisolone Sod Succ 40 Mg Vial IV PUSH 40 mg Q8HR SASHA Administration Morphine Sulfate 2 mg 09/15/24 17:55 09/18/24 21:22 Morphine Sulfate (*Crx) 2 Mg/Ml Inj IV PUSH 2 mg Q2H PRN Administration Pain Rated 7-10 Nicotine 1 patch 09/16/24 15:25 09/19/24 08:35 Nicotine (*Pbkc) 21 Mg Patch TRANSDERM 1 patch DAILY SASHA Administration Pantoprazole Sodium 40 mg 09/17/24 09:00 09/19/24 08:35 Pantoprazole 40 Mg Tablet PO 40 mg QAM SASHA Administration Perflutren Lipid Microsphere 0 ml 09/18/24 22:46 Perflutren Lipid Microspheres 1.5 Ml Vial Diluted To 10 Ml Total Volume IV PUSH 09/21/24 22:48 ONCE PRN adequate visualization Protocol Radiology Results: ITS Impressions Chest CT 09/15/24 17:47 IMPRESSION: Several lung opacities are noted as indicated above. Comparison with prior CT chest examination is recommended; if unavailable, [address] chest follow-up examination is recommended. Linear atelectasis or scarring and possible minimal infiltrate of lingula Cholelithiasis Chest X-Ray 09/19/24 06:29 IMPRESSION: 1. 2 cm nodule in superior segment right lower lobe suspicious for primary bronchogenic carcinoma. Noncontrast low-dose chest CT is recommended in 1-3 months. Labs Labs: Laboratory Results - last 24 hr 09/16/24 09/18/24 09/18/24 18:36 16:36 21:03 POC Capillary Glucose 312 H 295 H Urine Pneumococcal Ag Not detected 09/19/24 09/19/24 08:07 11:30 POC Capillary Glucose 313 H 392 H Urine Pneumococcal Ag
[2024-09-19 16:42] LABS: Glucose Point of Care 315 mg/dl (65-105)
[2024-09-19] MEDS: levoFLOXacin 750 MG TABLET PO (16:51)
[2024-09-19] MEDS: INSULIN GLARGINE (*BKC) 100 UNITS/ML 20 UNITS SUB-Q (21:01)
[2024-09-19] MEDS: ATORVASTATIN 40 MG TABLET 80 MG PO (21:01)
[2024-09-19] MEDS: DICLOFENAC SOD 75 MG TABLET.EC PO (21:02)
[2024-09-19 21:46] LABS: Glucose Point of Care 337 mg/dl (65-105)
[2024-09-20 00:50] VITALS: RESP 21
[2024-09-20 03:39] VITALS: PULSE 90; RESP 20
[2024-09-20] MEDS: IPRATROPIUM 0.5 MG/ALBUTEROL SULFATE 2.5 MG AMPUL.NEB 3 ML INHALATION ×2 (03:39→10:07)
[2024-09-20 05:01] VITALS: BP 146/91; PULSE 86; RESP 18; TEMP 36.5; O2SAT 95
[2024-09-20 07:51] LABS: Hematocrit 57.2 % (42.0-52.0); Hemoglobin 17.7 g/dL (14.0-18.0); Mean Corpuscular HGB Conc 30.9 g/dl (32-36); Mean Corpuscular Hemoglobin 30.2 pg (26-34); Mean Corpuscular Volume 97.6 fl (80-100); Mean Platelet Volume 9.6 fl (7.4-10.4); Platelet Count Result 198 k/mm3 (150-375); Red Blood Count 5.86 M/mm3 (4.6-6.20); Red Cell Distribution Width 14.2 % (11.5-14.5); White Blood Count 11.3 K/mm3 (4.5-10.0)
[2024-09-20 08:00] VITALS: O2SAT 94
[2024-09-20 08:03] LABS: Alanine Aminotransferase 26 U/L (6-50); Albumin Level 3.4 g/dL (3.5-5.1); Alkaline Phosphatase 75 U/L (38-126); Anion Gap -1 mmol/L (4-12); Aspartate Amino Transferase 23 U/L (17-59); Bilirubin,Total 0.7 mg/dL (0.2-1.3); Blood Urea Nitrogen 29 mg/dL (9-20); Calcium 8.3 mg/dL (8.4-10.2); Carbon Dioxide 36 mmol/L (22-30); Chloride 99 mmol/L (98-107); Estimated CRCL calculation 163 ml/min; Estimated Glomerular Filt Rate > 60; Glucose 197 mg/dL (65-110); Potassium 4.8 mmol/L (3.4-5.0); Sodium 134 mmol/L (137-145)
[2024-09-20 08:04] LABS: Glucose Point of Care 213 mg/dl (65-105)
[2024-09-20] MEDS: INSULIN ASPART (*BKC) 100 UNITS/ML SUB-Q ×2 (08:06→12:24)
[2024-09-20] MEDS: ASPIRIN 325 MG TABLET PO (08:08)
[2024-09-20] MEDS: PANTOPRAZOLE 40 MG TABLET PO (08:08)
[2024-09-20] MEDS: predniSONE 20 MG TABLET 60 MG PO (08:08)
[2024-09-20] MEDS: NICOTINE (*PBKC) 21 MG PATCH 1 PATCH TRANSDERM (08:09)
[2024-09-20 10:07] VITALS: PULSE 88; RESP 20; O2SAT 91
[2024-09-20 10:18] VITALS: PULSE 91; RESP 18
--- NOTE | 2024-09-20 11:49 | PM.PNPUL ---
Progress Note: A&P Assessment and Plan (1) Acute on chronic respiratory failure with hypoxia and hypercapnia: Code(s): J96.21 - Acute and chronic respiratory failure with hypoxia; J96.22 - Acute and chronic respiratory failure with hypercapnia Status: Acute Assessment and Plan: Improved. This was combination of factors, untreated COPD, ongoing tobacco abuse, untreated obstructive sleep apnea syndrome, may have had a viral infection. He had polycythemia on admission, H&H was 19.1 and 59.8 consistent with chronic hypoxemia. He completed his Home O2 study, requires 4 L/min around the clock. He has portable O2 ready to use on his way home, will get concentrator at home tomorrow. Admitted with pCO2 86, improved with BiPAP however he says the mask was leaking, making noise, he could not exhale again the pressure on BiPAP 18/8. He had a much better experience on AVAPS AE last night, slept a total of 9 hours, urinated once, feels rested. (2) Tobacco use: Code(s): Z72.0 - Tobacco use Status: Acute Assessment and Plan: Started smoking very young age 10-12, smoked up to 2 and half packs per day for decades, over 30 years so at least 75 pack years Had to cut back during the last month due to shortness of breath, he is definitely interested in staying off tobacco. He is going to need tobacco cessation information and support after discharge. (3) KAL (obstructive sleep apnea): Code(s): G47.33 - Obstructive sleep apnea (adult) (pediatric) Status: Acute Assessment and Plan: Had sleep study 10 years ago, not on treatment at this time. Current [place] is 11; Follow up with us in clinic. He snores, has witnessed apnea, non-refreshing sleep, wakes multiple time to urinate, no dream recall, naps in the day over the last month as he worsened. Dry mouth on waking. He responded well to AVAPS overnight. Will use again tonight. (4) Shortness of breath on exertion: Code(s): R06.02 - Shortness of breath Status: Acute Assessment and Plan: He has limited ability to walk, has been worse over the last month. I am checking echocardiogram to evaluate cardiac wall motion, valve function, pulmonary hypertension. (5) COPD exacerbation: Code(s): J44.1 - Chronic obstructive pulmonary disease with (acute) exacerbation Status: Acute Assessment and Plan: Improved. Plan plan: 1) Can go home on steroid taper. Today is getting 600 mg po, reduce by 10 mg every 2 days. 2) He is getting Home O2 through [facility]. and they may be able to rent an AVAPS machine to him. Settings: AVAPS mode, TV 650 ml, RR 4, EPAP 10 cm, I-time 0.8 seconds, rise 2 , will, Min P - 11, Max P -25 cm, FiO2 40% using large full face mask. On this setting, minute ventilation is 1 36.2 L/min, resp rate 21, exhaled TV 755 3 ) Oximeter information given; Use O2 4 L/min around the clock. The goal with using supplemental oxygen is to maintain a saturation between 89% and 94% while using supplemental oxygen. Use O2 while you are active. Check your saturation during exercise and 2-3 minutes after exercising when you are resting. Sometime saturation can decrease during recovery from exercise. Without oxygen, it is absolutely fine to have a saturation above 94% but it is not okay to use oxygen to get the saturation above 94%. If you are sitting quietly at rest and your saturation is 88% or below, wear O2. If you are sitting quietly at rest without O2 and your saturation is 90% or above, you do not have to use O2. If you are 95% on room air, do not wear O2. There are potential harms to having a saturation that is too high. More is not better. 4) He has several Advair inhalers at home, and can have a LAMA added to complete 3 long acting inhaled therapy. He can have the least expensive alternative, Spiriva HandiHaler or Spiriva Respimat. Another alterative is to order a nebulizer, and add albuterol and ipratropium solutions separately, using the ipratropium 3 times a day in the nebulizer. 5) Tobacco cessation support. He plans to stay off cigarettes, recently decreased to 1 ppd from 2.5 ppd, started smoking age 11. 6) He needs a primary care doctor. He was seeing Dr Salazar in 2021, I would recommend that he gets an appointment in his practice if he plans to continue to come to [place]. 7) Follow up in our office in 3-4 weeks. Needs alpha-1 testing. When he recovers fully, out patient pulmonary function test, Home O2 study to see if his needs have changes, discuss pulmonary rehab. meds: Advair 250/50 one puff twice a day, he has this at home Spiriva HandiHaler 10 mcg once a day If Spiriva is too expensive, nebulizer with ipratropium 0.5 mg/3 ml TID Prednisone taper 60 mg tomorrow, taper reducing by 10 mg every 2 days until completed. Subjective Date/time seen: 09/20/24 11:49 Interval history: 09/20/24; at bedside. He feels great, another good night of sleep. He has no interest in smoking. We talked about plans for follow up, trying to get AVAPS rented to use at night, 4 L O2 around the clock, rest, exertion and sleep. Cough is much better. He feels energetic enough to walk around the halls. Today, on 3 L, sat is 91%, so he may be able to use 3 at rest. He is improving. 09/19/24, follow up hospital visit; He says that using AVAP last night was the best sleep that he has had in 20 years. Slept 6 hours, wake once to urinate, and returned to sleep for 3 more hours. He has been less sleepy today. Home O2 study showed that he needs 4 L/min with rest and 4 L/min with exertion. Ech ois complete, results are pending. He is feeling much better, will plan to change his solumedrol to oral prednisone and discharge tomorrow. He has no insurance, therefore will not be able to go home with an AVAPS or bipap. He is going to pay for his O2 out of pocket. 09/18/24; New pulmonary consultation Sep 18, 2024 at 22:15 Room 320 ; Ronnie Tadeo is a 54 year old man with shortness of breath worse over the last month. He normally smokes 2 packs a day, has been smoking less due to his shortness of breath. He was hypoxic, saturation was in the 60% range when he was initially seen. [place] [address], procalcitonin 0.1, CRP 1.8. His swabs for viral pathogens influenza a and B, RSV, COVID were all negative. He has improved on IV Solu-Medrol, empiric antibiotics and bronchodilator therapy. 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 He is prediabetic, takes metformin. During this admission on Solu-Medrol blood sugars been elevated, 295. At home he checks his blood sugars and they are generally in the normal range. He is currently on 4 liters/minute with adequate oxygenation. COPD: He has a frequent cough, recently has had increasing sputum production and frequent wheezing. He has Advair inhaler at home, uses it like a rescue inhaler. Also describes having albuterol. He can walk about a city block before having to stop and rest. Chest x-ray had some abnormal areas, this led to a chest CT on 09/15. There is nothing suspicious for malignancy. He had some calcified granulomas. He has apical bullae. His ABGs show acute and chronic hypercapnia with hypoxemia, improve with bipap. He feels much better compared to arrival. He is agreeable to having O2 at home, has bought recreational O2 in cans, helpful, however hard to control. It provides a blast of O2 in the face, and he takes a deep breath and holds it. He has never had COVID. He had the initial series of vaccinations, no additional boosters in the last 2 years. 09/15 09/15 09/16 09/17 09/17 pH 7.225 7.204 7.285 7.334 7.37 pCO2 86.5 94.5 62 56.6 59.2 pO2 252.3 84.2 86.8 116.5 461.7 HCO3 35 36.4 28.8 29.4 33.9 sat 99% 93.4% 95% 97.9% 99% O2 delivery non-rebreather BiPAP BiPAP BIPAP BIPAP O2 100% 50% 50% 100% rate IPAP 8 10 8 8 EPAP 16 18 18 18 He has seasonal allergies spring and fall. Sensitive to pollen. Tobacco: Started smoking around the age of 9 or 11, was as high as 2 and half packs per day, when he retired in February this dropped down quite a bit, and during the last month he has been more difficult form to breathe so he has cut down to 1 pack per day. He was vaping marijuana, has not done that in the last month due to shortness of breath. He has not smoked marijuana for 3 years. SLEEP: Had sleep study 10 years ago, not on treatment at this time; has had night terrors. He does not sleep very much, 4 or 5 hours per night at most, never awakens feeling refreshedCurrent [place] is 11; he does not have irritable feelings in his legs before going to sleep, does not kick while he is sleeping. He snores, has witnessed apnea, non-refreshing sleep, wakes multiple time to urinate, no dream recall, naps in the day over the last month as he worsened. Dry mouth on waking. Will try AVAPs, but may have to get out patient sleep study. He started drinking caffeine in the last several weeks, 1 tea and 1 coffee per day on average. No energy drinks. No soda \ DATA * 09/19/24 echo : Summary 1. Complete two-dimensional, color flow and Doppler transthoracic echocardiogram is performed. 2. The left ventricle is moderately dilated measuring 6.3 cm in diameter; however this may be normal when indexed to body surface area. The left ventricular ejection fraction is visually estimated to be 55-60%. 3. The right ventricle is normal in size and systolic function. 4. There is no significant valvular disease noted in this study. * 09/17; elevated rheumatoid factor 16.9, normal is less than 12 * 09/15/[address] : Computed tomography (CT) of the chest was performed without intravenous contrast. Automated exposure control and iterative reconstruction technique were employed. Exam dose: 1075.37 mGy-cm total exam DLP. COMPARISON: None FINDINGS: There is prominent calcification at the first costochondral junctions, more prominent on the right, likely accounting for the asymmetric increased density overlying the right first costal cartilage junction on the right on the 09/15/2024 portable AP chest. Lung detail in particular is limited due to prominent respiratory motion. There are small bullae in both apical areas. There is an approximately 2 cm irregular area of hypodensity in the upper aspect of the superior segment of the right lower lobe, likely a calcified pulmonary granuloma. Comparison with any prior available CT thorax examinations, if available anywhere, would be helpful to document stability. If not available, [address] chest follow-up is recommended. Nonspecific 5.5 mm nodular density, left upper lobe (series 4 image 52). 5 mm nodular density of the lingula (series 4 image 67) There is mild discoid atelectasis or scarring and suggestion of slight infiltrate in the lingula. No pulmonary infiltrate or consolidation is evident otherwise. No hilar or mediastinal mass lesion or lymphadenopathy. No thoracic aortic aneurysm. Normal heart size. No pericardial or pleural effusion. Normal morphology of the adrenal glands. Incidentally noted is cholelithiasis. Prominent degenerative spurring of the lower thoracic spine. No suspicious osteolytic or osteoblastic lesions are noted. IMPRESSION: Several lung opacities are noted as indicated above. Comparison with prior CT chest examination is recommended; if unavailable, [address] chest follow-up examination is recommended. Linear atelectasis or scarring and possible minimal infiltrate of lingula. Cholelithiasis Review of Systems Review of Systems: All systems reviewed & are unremarkable except as noted in HPI and below Exam Narrative: GEN: Alert, oriented, not in distress. Wearing O2 at 3 L/min. Saturation is 91%. HEENT: pupils are equal, EOMI, symmetrical face; oral membranes moist, Mallampati III airway, upper plate NECK: Trachea is midline CHEST: Equal air entry, symmetric excursion, not wheezing at all. CV: Regular S1S2 no m/g/r ABD : (+) bowel sounds Extremities : no clubbing, cyanosis, or edema, no rash. PSYCH: normal thought and speech, gait is not tested. Objective Data Vital Signs Vital Signs: Vital Signs - 24 hr 09/19/24 14:00 09/19/24 14:00 09/19/24 16:00 Temperature 36.2 C L Pulse Rate 90 94 Respiratory Rate 20 18 Blood Pressure 162/92 H Pulse Oximetry 93 91 Oxygen Delivery Nasal Cannula Oxygen Flow Rate 3.5 09/19/24 21:20 09/19/24 21:30 09/19/24 22:09 Temperature Pulse Rate 93 92 Respiratory Rate 20 20 Blood Pressure Pulse Oximetry 92 Oxygen Delivery Nasal Cannula Oxygen Flow Rate 3.5 09/19/24 23:37 09/20/24 00:50 09/20/24 03:39 Temperature 36.2 C L Pulse Rate 95 90 Respiratory Rate 18 21 H 20 Blood Pressure 144/86 H Pulse Oximetry 91 Oxygen Delivery BiPAP Oxygen Flow Rate 09/20/24 05:01 09/20/24 08:00 09/20/24 10:07 Temperature 36.5 C Pulse Rate 86 Respiratory Rate 18 Blood Pressure 146/91 H Pulse Oximetry 95 94 91 Oxygen Delivery Nasal Cannula Nasal Cannula Oxygen Flow Rate 4 3 09/20/24 10:07 09/20/24 10:18 Temperature Pulse Rate 88 91 Respiratory Rate 20 18 Blood Pressure Pulse Oximetry Oxygen Delivery Oxygen Flow Rate Intake/Output Intake/Output: Intake & Output 09/17/24 09/18/24 09/19/24 12/27/24 23:59 23:59 23:59 23:59 Intake Total 1870 1600 1930 440 Output Total 1550 850 850 Balance 499 897 1643 440 Meds/Results Medications: Active Medications Generic Name Dose Route Start Last Admin Trade Name Freq PRN Reason Stop Dose Admin Acetaminophen 650 mg 09/15/24 17:55 Acetaminophen 325 Mg Tablet PO Q4H PRN Mild Pain (1-3) or Fever Hydrocodone Bitart/Acetaminophen 1 tab 09/15/24 17:55 09/17/24 20:25 Hydrocodone/Acetaminophen (*Crx) 5-325 Mg Tablet PO 1 tab Q4H PRN Administration Pain Rated 4-6 Albuterol/Ipratropium 3 ml 09/15/24 20:00 09/20/24 10:07 Ipratropium 0.5 Mg/Albuterol Sulfate 2.5 Mg Ampul.Neb 3 Ml INHALATION 3 ml Q6HRT SASHA Administration Aspirin 325 mg 09/17/24 09:00 09/20/24 08:08 Aspirin 325 Mg Tablet PO 325 mg DAILY SASHA Administration Atorvastatin Calcium 80 mg 09/16/24 21:00 09/19/24 21:01 Atorvastatin 40 Mg Tablet PO 80 mg HS SASHA Administration Dextrose 12.5 gm 09/16/24 17:07 Dextrose 50% 25 Gm/50 Ml Syringe IV PUSH PRN PRN Hypoglycemia Protocol Diclofenac Sodium 75 mg 09/16/24 21:00 09/19/24 21:02 Diclofenac Sod 75 Mg Tablet.Ec PO 75 mg HS SASHA Administration Enoxaparin Sodium 40 mg 09/17/24 09:00 09/19/24 08:35 Enoxaparin 40 Mg/0.4 Ml Syringe SUB-Q 40 mg DAILY SASHA Administration Glucagon 1 mg 09/16/24 17:07 Glucagon For Inj 1 Mg Vial IM PRN PRN Hypoglycemia Protocol Glucose 15 gm 09/16/24 17:07 Glucose Oral Gel 15 Gm Of Glucse In 37.5 Gm Tube PO PRN PRN Hypoglycemia Protocol Dextrose 1,000 mls @ 100 mls/hr 09/16/24 17:07 Dextrose 5% 1,000 Ml IVPB PRN PRN Hypoglycemia Protocol Insulin Aspart 4 - 8 units 09/17/24 08:00 09/20/24 08:06 Insulin Aspart (*Bkc) 100 Units/Ml SUB-Q 4 units TIDWM SASHA Administration Protocol Insulin Glargine 20 units 09/17/24 21:00 09/19/24 21:01 Insulin Glargine (*Bkc) 100 Units/Ml SUB-Q 20 units HS SASHA Administration Levofloxacin 750 mg 09/16/24 17:00 09/19/24 16:51 Levofloxacin 750 Mg Tablet PO 750 mg Q24H SASHA Administration Methylprednisolone Sodium Succinate 40 mg 09/19/24 06:00 09/20/24 05:34 Methylprednisolone Sod Succ 40 Mg Vial IV PUSH Not Given Q8HR SASHA Morphine Sulfate 2 mg 09/15/24 17:55 09/18/24 21:22 Morphine Sulfate (*Crx) 2 Mg/Ml Inj IV PUSH 2 mg Q2H PRN Administration Pain Rated 7-10 Nicotine 1 patch 09/16/24 15:25 09/20/24 08:09 Nicotine (*Pbkc) 21 Mg Patch TRANSDERM 1 patch DAILY SASHA Administration Pantoprazole Sodium 40 mg 09/17/24 09:00 09/20/24 08:08 Pantoprazole 40 Mg Tablet PO 40 mg QAM SASHA Administration Perflutren Lipid Microsphere 0 ml 09/18/24 22:46 Perflutren Lipid Microspheres 1.5 Ml Vial Diluted To 10 Ml Total Volume IV PUSH 09/21/24 22:48 ONCE PRN adequate visualization Protocol Prednisone 60 mg 09/20/24 08:00 09/20/24 08:08 Prednisone 20 Mg Tablet PO 60 mg DAILY@0800 SASHA Administration Radiology Results: ITS Impressions Chest CT 09/15/24 17:47 IMPRESSION: Several lung opacities are noted as indicated above. Comparison with prior CT chest examination is recommended; if unavailable, [address] chest follow-up examination is recommended. Linear atelectasis or scarring and possible minimal infiltrate of lingula Cholelithiasis Chest X-Ray 09/19/24 06:29 IMPRESSION: 1. 2 cm nodule in superior segment right lower lobe suspicious for primary bronchogenic carcinoma. Noncontrast low-dose chest CT is recommended in 1-3 months. Labs Labs: Laboratory Results - last 24 hr 09/16/24 09/19/24 09/19/24 18:36 16:34 21:00 WBC RBC Hgb Hct MCV MCH MCHC RDW Plt Count MPV Sodium Potassium Chloride Carbon Dioxide Anion Gap BUN Creatinine Estim Creat Clear Calc Estimated GFR Glucose POC Capillary Glucose 315 H 337 H Calcium Total Bilirubin AST ALT Alkaline Phosphatase Total Protein Albumin Urine Pneumococcal Ag Not detected 09/20/24 09/20/24 07:43 07:51 WBC 11.3 H RBC 5.86 Hgb 17.7 Hct 57.2 H MCV 97.6 MCH 30.2 MCHC 30.9 L RDW 14.2 Plt Count 198 MPV 9.6 Sodium 134 L Potassium 4.8 Chloride 99 Carbon Dioxide 36 H Anion Gap -1 L BUN 29 H Creatinine 0.80 Estim Creat Clear Calc 163 Estimated GFR > 60 Glucose 197 H POC Capillary Glucose 213 H Calcium 8.3 L Total Bilirubin 0.7 AST 23 ALT 26 Alkaline Phosphatase 75 Total Protein 7.0 Albumin 3.4 L Urine Pneumococcal Ag
[2024-09-20 11:52] LABS: Glucose Point of Care 292 mg/dl (65-105)
--- NOTE | 2024-09-20 12:10 | PM.DS ---
DS: Admitting Diagnosis Discharge Date 09/20/24 Admitting Diagnosis Shortness of breath DS: Discharge Diagnosis Discharge Diagnosis (1) Acute hypercapnic respiratory failure: Code(s): J96.02 - Acute respiratory failure with hypercapnia Status: Acute (2) COPD exacerbation: Code(s): J44.1 - Chronic obstructive pulmonary disease with (acute) exacerbation Status: Acute (3) HTN (hypertension): Code(s): I10 - Essential (primary) hypertension Status: Acute (4) KAL (obstructive sleep apnea): Code(s): G47.33 - Obstructive sleep apnea (adult) (pediatric) Status: Acute (5) Rheumatoid arthritis: Code(s): M06.9 - Rheumatoid arthritis, unspecified Status: Acute (6) IFG (impaired fasting glucose): Code(s): R73.01 - Impaired fasting glucose Status: Acute (7) HLD (hyperlipidemia): Code(s): E78.5 - Hyperlipidemia, unspecified Status: Acute (8) Tobacco use: Code(s): Z72.0 - Tobacco use Status: Acute (9) Polycythemia: Code(s): D75.1 - Secondary polycythemia Status: Acute DS: Summary Hospital Course Hospital Course: # Acute hypercapnic respiratory failure: Patient presents with SOB and was 96% requiring 15L NRB. ABG 7.22/86/252 on 15L NRB. CXR showing possible right apical mass. CT chest without contrast showing several lung opacities including a 2cm RLL calcified nodule possibly granuloma, linear atelectasis and cholelithiasis. He was started on BiPAP now at 18/10 with ABG showing 7.29/62/87. BiPAP settings adjusted and ABG this mornin.38/59/461 on 100% FiO2 (not sure why on 100%) Suspect related to COPD exacerbation worsened by untreated KAL. Pulmonary consulted. Was started on AVAPS Home oxygen evaluation requiring 4 L oxygen at rest which was arranged at discharge Steroid taper. On Levaquin treated for COPD exacerbation. # COPD exacerbation: Patient with extensive smoking hx. Presents with SOB and found to have acute resp failure. Imaging and ABG as above. WBC 10K, PCT 0.1. CRP 1.8. Influenza, COVID and RSV PCR nega/tive. Started on IV Solu-Medrol, abx and Duonebs. Which will be tapered down BCx NGTD. Sputum Cx was not performed. Urine Ag pending Continue abx given the productive cough. Continue Duonebs and Solu-Medrol which will be tapered down # hypertension: Blood pressure was elevated on admission felt related to resp failure. BP better controlled now. May have poorly controlled BP at home due to untreated KAL. # KAL (obstructive sleep apnea): As above. Will be on AVAPS if feasible # Rheumatoid arthritis: Patient has rheumatoid arthritis but is not on immune modulators. He only takes diclofenac which will continue. Added Protonix for gastric protection given he is on NSAIDs, steroids and aspirin. RF 16.9 Consider RA could be contributing to his lung findings. # IFG (impaired fasting glucose): A1c 6.5% Patient has impaired fasting glucose noted on past medical history. Glucose remains poorly controlled related to steroids. Continue AccuCheks covering with sliding scale. Hypoglycemia protocol available as needed. Added basal bolus insulin regimen while hospitalization. # HLD (hyperlipidemia): LFTs are normal. Continue atorvastatin. # Tobacco use: Patient was educated about the benefits of smoking cessation.. # Polycythemia: Polycythemia present on admission with hgb 18-19 range. Suspect related to chronic nocturnal hypoxia. Will need sleep study. # DVT Prophylaxis - Lovenox # Code status - Travel Service Consultant Spent with Patient Time attestation: Total time spent providing and/or coordinating discharge services: 40 Minutes Exam Narrative: Gen - NARD on oxygen via nasal cannula Chest - Air enrty is better no respiratory distress CV - RRR S1/S2 Abd - Soft, obese, NT Ext - No pedal edema. Psych - Normal mood and affect Skin - Warm and dry DS: Data Data Completed and Pending Completed studies during hospitalization: Exam Type: CA echo doppler color flow Study Info Complete two-dimensional, color flow and Doppler transthoracic echocardiogram is performed. Summary 1. Complete two-dimensional, color flow and Doppler transthoracic echocardiogram is performed. 2. The left ventricle is moderately dilated measuring 6.3 cm in diameter; however this may be normal when indexed to body surface area. The left ventricular ejection fraction is visually estimated to be 55-60%. 3. The right ventricle is normal in size and systolic function. 4. There is no significant valvular disease noted in this study. Left Ventricle The left ventricle is moderately dilated measuring 6.3 cm in diameter; however this may be normal when indexed to body surface area. The left ventricular ejection fraction is visually estimated to be 55-60%. Right Ventricle The right ventricle is normal in size and systolic function. Left Atria The left atrium is normal size. Right Atria The right atrium is normal size. Aortic Valve The aortic valve is trileaflet and opens well. There is no aortic regurgitation. Pulmonic Valve The pulmonic valve is grossly normal. There is no color Doppler evidence of pulmonic valve regurgitation. Mitral Valve The mitral valve is normal. There is no mitral regurgitation. Tricuspid Valve The tricuspid valve is normal. There is trace tricuspid regurgitation. Pericardium/Pleural Prominent epicardial fat pad. Inferior Vena Cava Inferior vena cava is not well visualized. Aorta The aortic root at the level of the sinus of Valsalva measures 3.0 cm in diameter. Labs on day of discharge: Labs from last 24 hours 09/20/24 09/20/24 09/20/24 11:39 07:51 07:43 WBC 11.3 H RBC 5.86 Hgb 17.7 Hct 57.2 H MCV 97.6 MCH 30.2 MCHC 30.9 L RDW 14.2 Plt Count 198 MPV 9.6 Sodium 134 L Potassium 4.8 Chloride 99 Carbon Dioxide 36 H Anion Gap -1 L BUN 29 H Creatinine 0.80 Estim Creat Clear Calc 163 Estimated GFR > 60 Glucose 197 H POC Capillary Glucose 292 H 213 H Calcium 8.3 L Total Bilirubin 0.7 AST 23 ALT 26 Alkaline Phosphatase 75 Total Protein 7.0 Albumin 3.4 L Urine Pneumococcal Ag 09/19/24 09/19/24 09/16/24 21:00 16:34 18:36 WBC RBC Hgb Hct MCV MCH MCHC RDW Plt Count MPV Sodium Potassium Chloride Carbon Dioxide Anion Gap BUN Creatinine Estim Creat Clear Calc Estimated GFR Glucose POC Capillary Glucose 337 H 315 H Calcium Total Bilirubin AST ALT Alkaline Phosphatase Total Protein Albumin Urine Pneumococcal Ag Not detected Preliminary micro results at discharge 09/16/24 01:37 Blood Culture - Preliminary Blood 09/16/24 01:37 Blood Culture - Preliminary Blood Imaging Radiologist's impression: ITS Impressions Chest X-Ray 09/15/24 15:52 IMPRESSION: Asymmetric increased density overlying right apical area; this might represent asymmetric prominent right first costal cartilage calcification, but underlying pulmonary mass density is not excluded. Recommend PA and lateral chest radiographs or CT thorax Chest CT 09/15/24 17:47 IMPRESSION: Several lung opacities are noted as indicated above. Comparison with prior CT chest examination is recommended; if unavailable, [address] chest follow-up examination is recommended. Linear atelectasis or scarring and possible minimal infiltrate of lingula Cholelithiasis Chest X-Ray 09/19/24 06:29 IMPRESSION: 1. 2 cm nodule in superior segment right lower lobe suspicious for primary bronchogenic carcinoma. Noncontrast low-dose chest CT is recommended in 1-3 months. Discharge Plan Discharge Attending physician on discharge: Tamir Dang Consulting providers: Charly Williamson; Jacque Dumont Discharging Clinician: Tamir Dang Anticipated Discharge Date/Time: 09/20/24 12:18 Patient Disposition: Home, Self-Care Activity: as tolerated Diet: heart healthy and diabetic Discharge Instructions: Oxygen via nasal cannula 4 L at rest and with activity Accu-Cheks AC and HS Stop smoking AVAPS at night if able to obtain: AVAPS mode, TV 650 ml, RR 4, EPAP 10 cm, I-time 0.8 seconds, rise 2 , will, Min P - 11, Max P -25 cm, FiO2 40% using large full face mask. On this setting, minute ventilation is 1 36.2 L/min, resp rate 21, exhaled TV 755; Patient Instructions: Antibiotic Form, COPD (Chronic Obstructive Pulmonary Disease) (DC) Patient Language: Mongolian Stand Alone Forms: General Discharge Information Follow-up/Referrals: Jacque Dumont MD [Physician] - 2 Weeks PHYSICIAN,CROWNING INSPECTOR [Primary Care Provider] - 1 Week (PCP) Discharge Medications: New (DME) nebulizer and compressor Device See Rx Instructions .Route Qty: 1 0RF Rx Instructions: As directed pantoprazole 40 mg Tablet,Delayed Release (Dr/Ec) 40 mg PO QAM Qty: 30 0RF albuterol sulfate 90 mcg/actuation aerosol powdr breath activated 2 inh inhalation Q4H PRN (Reason: shortness of breath or wheezing) Qty: 1 0RF nicotine [Nicoderm CQ] 21 mg/24 hr Patch 24 Hour 1 patch transdermal DAILY Qty: 30 0RF atorvastatin 40 mg Tablet 80 mg PO HS Qty: 30 0RF levofloxacin 750 mg tablet 750 mg PO DAILY Qty: 3 0RF prednisone 10 mg tablet 10 mg PO DIRECTED Qty: 42 0RF Rx Instructions: Take 6 tablets daily X 2 days then 5 tabs daily x 2 days then 4 tabs daily x 2 days then 3 tabs daily x 2 days then 2 tab daily x 2 days then 1 tab daily x 2 days then stop ipratropium bromide 0.02 % solution 2.5 ml inhalation Q6H PRN (Reason: shortness of breath or wheezing) Qty: 75 0RF tiotropium bromide [Spiriva with HandiHaler] 18 mcg capsule, w/inhalation device 1 cap inhalation DAILY Qty: 30 0RF Rx Instructions: puncture 1 cap using device; one dose = 2 inhalations fluticasone propion-salmeterol [Advair Diskus] 250-50 mcg/dose blister with device 1 inh inhalation Q12H Qty: 60 0RF Continued hydrocodone-acetaminophen 5-325 mg tablet 1 tablet PO Q8H PRN (Reason: pain) Qty: 30 0RF lisinopril 30 mg tablet 30 mg PO DAILY Qty: 30 0RF diclofenac sodium 75 mg Tablet,Delayed Release (Dr/Ec) 75 mg PO HS Qty: 30 0RF Discontinued atorvastatin 10 mg Tablet 80 mg PO HS aspirin 325 mg tablet 325 mg PO DAILY Qty: 14 0RF Date of admission: 09/16/24 06:50 Primary Care Provider: PHYSICIAN,CROWNING INSPECTOR Admitting Provider: Virgil Luciano Attending physician on admission: Virgil Luciano Condition: Stable
[2024-09-21 21:58] LABS: Legionella pneumophila Ag Ur NOT DETECTED
--- OUTSIDE RECORDS SUMMARY | 2024-09-22 23:36 | XMS_ITS | Encounter Summary ---
Author Organization [facility] Address [address] [place] [id number] Phone [email or web address] Care Team Providers Care Freight Rate Specialist Name Role Phone Lena Haq ACCOUNTING COORDINATOR Primary Care Provider Reason for Visit * Reason Comments Chronic Condition-multiple Follow-up Encounter Details Date Type Department Care Team (Late st Contact Info) Description 03/18/2024 9:30 AM CDT Office Visit [facility] [address] [place] [id number] Lena Haq NP [address] [place] [id number] Type 2 diabetes mellitus without complication, without long-term current use of insulin (CMS/HCC) (Primary Dx); Mixed hyperlipidemia; Essential (primary) hypertension Social History Tobacco Use Types Packs/Day Years Used Date Smoking Tobacco: Heavy Smoker Cigarettes Smokeless Tobacco: Never Tobacco Cessation:Ready to Q uit: Not Asked; Counseling Given: Not Answered Comments:Smoking History Packs/day: 6 cigarettes Alcohol Use Standard Drinks/Week Comments Yes 0 (1 standard drink = 0.6 oz pur e alcohol) 1-2 per month Intimate Partner Violence Answer Date R ecorded Insults You Not on file 07/09/2021 Threatens You Not on file 07/09/2021 Screams at You Not on file 07/09/2021 Physically Hurt Not on file 07/09/2021 Intimate Partner Violence Score Not on file 07/09/2021 Alcohol Use Answer Date Recorded Alcohol Use Status Yes 10/07/2021 Depression Answer Date Recorded PHQ Total Score 6 11/09/2023 Sex and Gender Information Value Date Recorded Sex Assigned at Male 10/01/2021 1:36 PM AGENT Legal Sex Male 10:47 AM CDT Gender Identity Male 10/01/2021 1:36 PM AGENT Sexual Orientation Not on file documented as of this encounter Last Filed Vital Signs Vital Sign Reading Time Taken Comments Blood Pressure 144/74 03/18/2024 9:34 AM CDT Pulse 103 03/18/2024 9:34 AM CDT Temperature 36.1 ??C (96.9 ??F) 03/18/2024 9:34 AM CD T Respiratory Rate 20 03/18/2024 9:34 AM CDT Oxygen Saturation 94% 03/18/2024 9:34 AM CDT Inhaled Oxygen Concentration - - Weight 176 kg (388 lb 12.8 oz) 03/18/2024 9:34 A M CDT Height 200.7 cm (6' 7 ) 03/18/2024 9:34 AM CDT Body Mass Index 43.8 03/18/2024 9:34 AM CDT documented in this encounter Patient Instructions * Attachments The following attachments cannot be sent through Care Everywhere. * Diet: DASH (Mauritian) * Heart Health: Where Will You Be in 5 Years?: Video (Mauritian) documented in this encounter Progress Notes * Lena Haq NP - 03/18/2024 9:30 AM CDT Subjective: Ronnie Tadeo is a 54 y.o. male. Chief Complaint: Chief Complaint Patient presents with Chronic Condition-multiple Follow-up History Reviewed: The following portions of the patient's chart were reviewed in this encounter and updated as appropriate: Tobacco Allergies Meds Problems Med Hx Surg Hx Fam Hx Diabetes Mellitus Patient presents with new onset of Type 2 diabetes. Current symptoms include: none. Symptoms have been basically asymptomatic. Patient denies foot ulcerations, nausea, paresthesia of the feet, polydipsia, polyuria, and visual disturbances. Evaluation to date has included: fasting blood sugar, fasting lipid panel, and hemoglobin A1C. Home sugars: patient does not check sugars. Current treatment: more intensive attention to diet which has been ineffective, low cholesterol diet which has been ineffective, increased aerobic exercise which has been ineffective, and Started metformin which has beentoo early to assess effectiveness. Last dilated eye exam - will schedule. Review of Systems Constitutional: Negative. Negative for chills, fatigue and fever. Respiratory: Negative for shortness of breath. Cardiovascular: Negative for chest pain. Gastrointestinal: Negative for diarrhea, nausea and vomiting. Neurological: Negative for dizziness. Visit Vitals BP (!) 144/74 Pulse 103 Temp 96.9 ??F Resp 20 Ht 6' 7 Wt (!) 388 lb 12.8 oz SpO2 94% BMI 43.80 kg/m?? Smoking Status Heavy Smoker BSA 3.13 m?? Current Outpatient Medications: amLODIPine (NORVASC) 5 MG tablet, Take 1 tablet (5 mg total) by mouth 1 (one) time each day., Disp:90 tablet, Rfl: 0 aspirin (ST SHIRA) 81 MG EC tablet, Take 81 mg by mouth 1 (one) time each day., Disp: , Rfl: atorvastatin (LIPITOR) 80 MG tablet, Take 1 tablet (80 mg total) by mouth 1 (one) time each day., Disp: 90 tablet, Rfl: 0 diclofenac (VOLTAREN) 75 MG EC tablet, Take 1 tablet (75 mg total) by mouth in the morning and 1 tablet (75 mg total) in the evening. Do not crush, chew, or split. ., Disp: 200 tablet, Rfl: 3 lisinopril (ZESTRIL) 40 MG tablet, Take 1 tablet (40 mg total) by mouth 1 (one) time each day., Disp: 90 tablet, Rfl: 1 [place]-3 Fatty Acids (Fish Oil) 1000 MG capsule delayed-release, Take by mouth., Disp: , Rfl: metFORMIN (GLUCOPHAGE) 500 MG tablet, Take 1 tablet (500 mg total) by mouth in the morning and 1 tablet (500 mg total) in the evening. Take with meals., Disp: 180 tablet, Rfl: 0 Patient Active Problem List Diagnosis Obstructive sleep apnea (adult) (pediatric) Rheumatoid arthritis, unspecified (CMS/HCC) Other forms of dyspnea Medication refill Obesity, unspecified Hyperlipidemia Essential (primary) hypertension Tobacco use Prediabetes Chronic pain of both knees Plantar fasciitis, left History reviewed. No pertinent past medical history. Past Surgical History: Procedure Laterality Date ARTHROSCOPIC REPAIR ACL Right KNEE ARTHROSCOPY Bilateral Social History Socioeconomic History Marital status: Spouse name: Not on file Number of children: Not on file Years of education: Not on file Highest education level: Not on file Occupational History Not on file Tobacco Use Smoking status: Heavy Smoker Current packs/day: 1.50 Types: Cigarettes Smokeless tobacco: Never Tobacco comments: Smoking History Packs/day: 6 cigarettes Substance and Sexual Activity Alcohol use: Yes Comment: 1-2 per month Drug use: Yes Types: Marijuana Sexual activity: Not on file Other Topics Concern Not on file Social History Narrative Not on file Social Determinants of Health Financial Resource Strain: Not on file Food Insecurity: Not on file Transportation Needs: Not on file Physical Activity: Not on file Stress: Not on file Intimate Partner Violence: Low Risk (07/09/2021) Intimate Partner Violence Insults You: Not on file Threatens You: Not on file Screams at You: Not on file Physically Hurt: Not on file Intimate Partner Violence Score: Not on file Housing Stability: Not on file Objective: Physical Exam Vitals and nursing note reviewed. Constitutional: General: He is not in acute distress. Appearance: Normal appearance. He is obese. HENT: Head: Normocephalic. Cardiovascular: Rate and Rhythm: Normal rate and regular rhythm. Pulmonary: Effort: Pulmonary effort is normal. Breath sounds: Normal breath sounds. Skin: General: Skin is warm and dry. Neurological: Mental Status: He is alert and oriented to person, place, and time. Psychiatric: Mood and Affect: Mood normal. Behavior: Behavior normal. Assessment/Plan: Jas was seen today for chronic condition-multiple follow-up. Diagnoses and all orders for this visit: Type 2 diabetes mellitus without complication, without long-term current use of insulin ([facility]) (Primary) - metFORMIN (GLUCOPHAGE) 500 MG tablet; Take 1 tablet (500 mg total) by mouth in the morning and 1 tablet (500 mg total) in the evening. Take with meals. - Ambulatory Referral to Cardiology; Future Mixed hyperlipidemia - Ambulatory Referral to Cardiology; Future Essential (primary) hypertension - Ambulatory Referral to Cardiology; Future Long discussion with pt about his health. Stressed the importance of taking his meds as prescribed,following up frequently, diet, exercise, weight loss, etc. He has not established with a new pcp yet. He is still trying to figure out which insurance he is going to get. Encouraged to get established as soon as possible. Cardiology referral for HLP on max dose statin. Lena Haq NP documented in this encounter Plan of Treatment Not on file documented as of this encounter Visit Diagnoses Diagnosis Type 2 diabetes mellitus without complication, without long-term current use of insulin ([facility])- Primary Mixed hyperlipidemia Essential (primary) hypertension Unspecified essential hypertension documented in this encounter Care Teams Freight Rate Specialist Relationship Specialty Start Date End Date Lena Haq NP [address] [place] [id number] PCP - General Family Medicine 01/25/22 07/31/24 documented as of this encounter
--- OUTSIDE RECORDS SUMMARY | 2024-09-22 23:36 | XMS_ITS | Encounter Summary ---
Author Organization [facility] Address [address] [place] [address] Phone [email or web address] Care Team Providers Care Toll Test Worker Name Role Phone Lena Haq FREIGHT ENGINEER Primary Care Provider [phone] Reason for Visit * Reason Comments Chronic Condition-multiple Follow-up Encounter Details Date Type Department Care Team (Latest Contact Info) Description 03/06/2024 2:30 PM CDT Office Visit [facility] [address] [place] [address] Lena Haq NP [address] [place] [address] Essential (primary) hypertension (Primary Dx); Hyperlipidemia, unspecified hyperlipidemia type; Rheumatoid arthritis with positive rheumatoid factor, involving unspecified site (CMS/HCC); Chronic pain of both knees; Medication refill Social History Tobacco Use Types Packs/Day Years [...] Sex Assigned at Male 10/01/2021 1:36 PM CAPACITY MANAGEMENT SPECIALIST Legal Sex Male 10:47 AM CDT Gender Identity Male 10/01/2021 1:36 PM CAPACITY MANAGEMENT SPECIALIST Sexual Orientation Not on file documented as of this encounter Last Filed Vital Signs Vital Sign Reading Time Taken Comments Blood Pressure 136/74 03/06/2024 2:23 PM CDT Pulse 105 03/06/2024 2:23 PM CDT Temperature 36.1 ??C (97 ??F) 03/06/2024 2:23 PM CDT Respiratory Rate 20 03/06/2024 2:23 PM CDT Oxygen Saturation 96% 03/06/2024 2:23 PM CDT Inhaled Oxygen Concentration - - Weight 176 kg (387 lb 9.6 oz) 03/06/2024 2:23 PM CDT Height 200.7 cm (6' 7 ) 03/06/2024 2:23 PM CDT Body Mass Index 43.66 03/06/2024 2:23 PM CDT documented in this encounter Progress Notes * Lena Haq, ELDON - 03/06/2024 2:30 PM CDT Subjective: Ronnie Tadeo is a 54 y.o. male. Chief Complaint: Chief Complaint Patient presents with Chronic Condition-multiple Follow-up History Reviewed: The following portions of the patient's chart were reviewed in this encounter and updated as appropriate: Tobacco Allergies Meds Problems Med Hx Surg Hx Fam Hx Here for med refills. Takes meds as prescribed. No complaints today. Review of Systems Constitutional: Negative. Negative for chills, fatigue and fever. Respiratory: Negative for shortness of breath. Cardiovascular: Negative for chest pain. Gastrointestinal: Negative for diarrhea, nausea and vomiting. Neurological: Negative for dizziness. Visit Vitals BP 136/74 Pulse 105 Temp 97 ??F Resp 20 Ht 6' 7 Wt (!) 387 lb 9.6 oz SpO2 96% BMI 43.66 kg/m?? Smoking Status Heavy Smoker BSA 3.13 m?? Current Outpatient Medications: aspirin (ST SHIRA) 81 MG EC tablet, Take 81 mg by mouth 1 (one) time each day., Disp: , Rfl: [place]-3 Fatty Acids (Fish Oil) 1000 MG capsule delayed-release, Take by mouth., Disp: , Rfl: amLODIPine (NORVASC) 5 MG tablet, Take 1 tablet (5 mg total) by mouth 1 (one) time each day., Disp:90 tablet, Rfl: 0 atorvastatin (LIPITOR) 80 MG tablet, Take 1 [...] each day., Disp: 90 tablet, Rfl: 1 Patient Active Problem List Diagnosis Obstructive sleep [...] Exam Vitals and nursing note reviewed. Constitutional: Appearance: Normal appearance. HENT: Head: Normocephalic. Cardiovascular: Rate and Rhythm: [...] Diagnoses and all orders for this visit: Essential (primary) hypertension (Primary) Assessment & Plan: Pt has h/o HTN and will need to keep their BP at goal for their specific risk category, typically the BP should be below 140/90. HTN increases risks for heart attack and stroke as well as renal impairment. Uncontrolled HTN may cause vision changes and headache. You will need to work on daily exercise Minimum of 150 minutes per week over at least 3 days and dieting to lose weight if above a BMI of 25. Diet should be rich in vegetables, fruits and whole grains. Recommend DASH or Mediterranean diet low fat dairy, poultry, fish, legumes, nuts and non-tropical vegetable oils, limit sugar sweetened beverages and red meat. You will also need to reduce salt, increase dietary potassium and take any prescribed medications as ordered. Taking meds as prescribed Continue same meds Orders: - amLODIPine (NORVASC) 5 MG tablet; Take 1 tablet (5 mg total) by mouth 1 (one) time each day. - lisinopril (ZESTRIL) 40 MG tablet; Take 1 tablet (40 mg total) by mouth 1 (one) time each day. Hyperlipidemia, unspecified hyperlipidemia type Assessment & Plan: Eat heart-healthy foods. Eat fruits, vegetables, whole grains, beans, and other high-fiber foods. Eat lean proteins, such as seafood, lean meats, beans, nuts, and soy products. Eat healthy fats, such as canola and olive oil. Choose foods that are low in saturated fat. Limit sodium and alcohol. Limit drinks and foods with added sugar. Be physically active. Try to do moderate activity at least 2?? hours a week. Or try to do vigorous activity at least 1?? hours a week. You may want to walk or try other activities, such as running, swimming, cycling, or playing tennis or team sports. Stay at a healthy weight or lose weight by making the changes in eating and physical activity listed above. Losing just a small amount of weight, even 5 to 10 pounds, can help reduce your risk for having a heart attack or stroke. Do not smoke. Manage other health problems. These include diabetes and high blood pressure. If you think you may have a problem with alcohol or drug use, talk to your doctor. If you take medicine, take it exactly as prescribed. Call your doctor if you think you are having aproblem with your medicine. Check with your doctor or pharmacist before you use any other medicines, including exdt-sby-baoaulgnoisoypnx. Make sure your doctor knows all of the medicines, vitamins, herbal products, and supplements you take. Taking some medicines together can cause problems. Triglycerides and cholesterol elevated. Strict low fat diet discussed. Eating a low-fat, heart-healthy diet is a good start. Try not to eatfatty cuts of beef and pork. Eat more chicken, turkey and fish. Drink fat-free milk instead of whole milk. Avoid other high-fat dairy foods like cheese, butter and ice cream. Avoid fried foods. Eat lots of fresh fruits and vegetables. atorvastatin 80 mg daily Orders: - atorvastatin (LIPITOR) 80 MG tablet; Take 1 tablet (80 mg total) by mouth 1 (one) time each day. - CMP12+LP+6AC(Glucose>100 Reflex A1c) (594659) - [facility] Rheumatoid arthritis with positive rheumatoid factor, involving unspecified site ([facility]) Assessment & Plan: Uses diclofenac daily. Declines further treatment/referral Orders: - diclofenac (VOLTAREN) 75 MG EC tablet; Take 1 tablet (75 mg total) by mouth in the morning and 1 tablet (75 mg total) in the evening. Do not crush, chew, or split. . Chronic pain of both knees Assessment & Plan: Stable on diclofenac Orders: - diclofenac (VOLTAREN) 75 MG EC tablet; Take 1 tablet (75 mg total) by mouth in the morning and 1 tablet (75 mg total) in the evening. Do not crush, chew, or split. . Medication refill Assessment & Plan: Meds dispensed. Take as prescribed. Patient was counseled on medication risk, side effects, and possible complications. Patient was counseled on how to properly take the medication and to call with any adverse reactions. Patient stated understanding. Stay active. Watch diet. Follow up prn. Lena Haq NP * Merced Leal RN - 03/06/2024 2:30 PM CDT Ronnie Tadeo is a 54 y.o. male presents to the [facility]/06[facility]24 for Non- Fasting lab work ordered by [facility] provider . Labs drawn via left antecubital using straight-stick 22 gauge needle on the first attempt without difficulty. Manual pressure applied to site upon completion of venipuncture without any bleeding, Band-aid applied over site. Patient tolerated lab procedure well: Yes. Merced Leal RN 03/06/2024 documented in this encounter Miscellaneous Notes * Assessment & Plan Note - Lena Haq NP - 03/06/2024 2:43 PM CDTAssociated Problem(s): Medication refill Meds dispensed. Take as prescribed. Patient was counseled on medication risk, side effects, and possible complications. Patient was counseled on how to properly take the medication and to call with any adverse reactions. Patient stated understanding. Stay active. Watch diet. Follow up prn. * Assessment & Plan Note - Lena Haq NP - 03/06/2024 2:43 PM CDTAssociated Problem(s): Chronic pain of both knees Stable on diclofenac * Assessment & Plan Note - Lena Haq NP - 03/06/2024 2:43 PM CDTAssociated Problem(s): Essential (primary) hypertension Pt has h/o HTN and will need to keep their BP at goal for their specific risk category, typically the BP should be below 140/90. HTN increases risks for heart attack and stroke as well as renal impairment. Uncontrolled HTN may cause vision changes and headache. You will need to work on daily exercise Minimum of 150 minutes per week over at least 3 days and dieting to lose weight if above a BMI of 25. Diet should be rich in vegetables, fruits and whole grains. Recommend DASH or Mediterranean diet low fat dairy, poultry, fish, legumes, nuts and non-tropical vegetable oils, limit sugar sweetened beverages and red meat. You will also need to reduce salt, increase dietary potassium and take any prescribed medications as ordered. Taking meds as prescribed Continue same meds * Assessment & Plan Note - Lena Haq NP - 03/06/2024 2:43 PM CDTAssociated Problem(s): Hyperlipidemia Eat heart-healthy foods. Eat fruits, vegetables, whole grains, beans, and other high-fiber foods. Eat lean proteins, such as seafood, lean meats, beans, nuts, and soy products. Eat healthy fats, such as canola and olive oil. Choose foods that are low in saturated fat. Limit sodium and alcohol. Limit drinks and foods with added sugar. Be physically active. Try to do moderate activity at least 2?? hours a week. Or try to do vigorous activity at least 1?? hours a week. You may want to walk or try other activities, such as running, swimming, cycling, or playing tennis or team sports. Stay at a healthy weight or lose weight by making the changes in eating and physical activity listed above. Losing just a small amount of weight, even 5 to 10 pounds, can help reduce your risk for having a heart attack or stroke. Do not smoke. Manage other health problems. These include diabetes and high blood pressure. If you think you may have a problem with alcohol or drug use, talk to your doctor. If you take medicine, take it exactly as prescribed. Call your doctor if you think you are having aproblem with your medicine. Check with your doctor or pharmacist before you use any other medicines, including lrjk-ibq-cspmcmlbfwasqmjk. Make sure your doctor knows all of the medicines, vitamins, herbal products, and supplements you take. Taking some medicines together can cause problems. Triglycerides and cholesterol elevated. Strict low fat diet discussed. Eating a low-fat, heart-healthy diet is a good start. Try not to eatfatty cuts of beef and pork. Eat more chicken, turkey and fish. Drink fat-free milk instead of whole milk. Avoid other high-fat dairy foods like cheese, butter and ice cream. Avoid fried foods. Eat lots of fresh fruits and vegetables. atorvastatin 80 mg daily * Assessment & Plan Note - Lena Haq NP - 03/06/2024 2:42 PM CDTAssociated Problem(s): Rheumatoid arthritis, unspecified ([facility]) Uses diclofenac daily. Declines further treatment/referral documented in this encounter Plan of Treatment Not on file documented as of this encounter Procedures Procedure Name Priority Date/Time Associated Diagnosis Comments CMP12+LP+6AC (A1C) [facility] Routine 03/06/2024 2:51 PM CDT Hyperlipidemia, unspecified hyperlipidemia type N/O HEMOGLOBIN A1C Routine 03/06/2024 2: 51 PM CDT documented in this encounter Results * (ABNORMAL) Hgb A1C Hemoglobin Glycosylated (79952) (03/06/2024 2:51 PM CDT) Hemoglobin A1C 6.6(H) 4.8 - 5.6 % [facility] 1 Comment: ? Prediabetes: 5.7 - 6.4 ? Diabetes: >6.4 ? Glycemic control for adults with diabetes: <7.0 03/06/2024 2:51 PM CDT 03/06/2024 Comment:Fco Maxwell [facility] - 03/07/2024 11:07 AM CDT Performed at: ??01 - [facility] ??[id number] Reel Film Inspector: Bo Rivera PhD, Phone: ??[phone] us Lena Haq FREIGHT ENGINEER LAB BLOOD ORDERABLES Final Res ult [facility] * (ABNORMAL) CMP12+LP+6AC(Glucose>100 Reflex A1c) (627123) - [facility] (03/06/2024 2:51 PM CDT) Glucose 184(H) 70 - 99 mg/dL [facility] 1 Uric Acid 6.1 3.8 - 8.4 mg/dL [facility] 1 Comment:Therapeutic target f or gout patients: <6.0 BUN 12 6 - 24 mg/dL [facility] 1 Creatinine 1.15 0.76 - 1.27 mg/dL [facility] 1 eGFR 75 >59 mL/min/1.7 3 [facility] 1 BUN/Creatinine Ratio 10 9 - 20 [facility] 1 Sodium 138 134 - 144 mmol/L [facility] 1 Potassium 4.2 3.5 - 5.2 mmol/L [facility] 1 Chloride 100 96 - 106 mmol/L [facility] 1 Calcium 9.3 8.7 - 10.2 mg/dL [facility] 1 Phosphorus 2.6(L) 2.8 - 4.1 mg/dL [facility] 1 Total Protein 7.6 6.0 - 8.5 g/dL [facility] 1 Albumin 4.4 3.8 - 4.9 g/dL [facility] 1 Globulin, Total 3.2 1.5 - 4.5 g/dL [facility] 1 A/G Ratio 1.4 [facility] 1 Total Bilirubin 0.6 0.0 - 1.2 mg/dL [facility] 1 Alkaline Phosphatase 117 44 - 121 IU/L [facility] 1 LD 154 121 - 224 IU/L [facility] 1 AST 24 0 - 40 IU/L [facility] 1 ALT (SGPT) 37 0 - 44 IU/L [facility] 1 GGT 29 0 - 65 IU/L [facility] 1 Iron 93 38 - 169 ug/dL [facility] 1 Cholesterol 206(H) 100 - 199 mg/dL [facility] 1 Triglycerides 233(H) 0 - 149 mg/dL [facility] 1 HDL 32(L) >39 mg/dL [facility] 1 VLDL Cholesterol Williams 42(H) 5 - 40 mg/dL [facility] 1 LDL Calculated 132(H) 0 - 99 mg/dL [facility] 1 Chol/HDL Ratio 6.4(H) 0.0 - 5.0 ratio [facility] 1 Comment: ?T. Chol/HDL Ratio ?Men ??Women ?1/2 Avg.Risk ??3.4 ?3.3 ?Avg.Risk ??5.0 ?4.4 ? 2X Avg.Risk ??9.6 ?7.1 ? 3X Avg.Risk 23.4 ?? 11.0 Estimated CHD Risk 1.4(H) 0.0 - 1.0 times avg. [facility] 1 Comment: The CHD Risk is based on the T. Chol/HDL ratio. Other factors affect CHD Risk such as hypertension, smoking, diabetes, severe obesity, and family history of premature CHD. Blood (Blood, Venous) 03/06/2024 2:51 PM CDT 03/06/2024 Comment:Blood, Venou Karma [facility] - 03/07/2024 11:07 AM CDT Performed at: ??01 - [facility] [address], [place], [place] ??[id number] Reel Film Inspector: Bo Rivera PhD, Phone: ??[phone] Lena Haq FREIGHT ENGINEER LAB BLOOD ORDERABLES Final Res ult [facility] 1 documented in this encounter Visit Diagnoses Diagnosis Essential (primary) hypertension- Primary Unspecified essential hypertension Hyperlipidemia, unspecified hyperlipidemia type Rheumatoid arthritis with positive rheumatoid factor, involving unspecified site (CMS/[facility]) Chronic pain of both knees Medication refill Issue of repeat prescriptions documented in this encounter Care Teams Toll Test Worker Relationship Specialty Start Date End Date Lena Haq, ELDON [address] [place] [id number] PCP - General Family Medicine 01/25/22 07/31/24 documented as of this encounter
--- OUTSIDE RECORDS SUMMARY | 2024-09-22 23:36 | XMS_ITS | Encounter Summary ---
Author Organization [facility] Address [address] [place] [address] Phone [email or web address] Care Team Providers Care Cook Barbecue Name Role Phone Lena Haq BOXER OPERATOR Primary Care Provider [phone] Reason for Visit * Reason Comments Chronic Condition-multiple Follow-up Encounter Details Date Type Department Care Team (Latest Contact Info) Description 01/03/2024 3:00 PM CDT Office Visit [facility] [address] [place] [address] Lena Haq NP [address] [place] [address] Class 3 severe obesity due to excess calories with serious comorbidity and body mass index (BMI) of 40.0 to 44.9 in adult (CMS/HCC) (Primary Dx); Essential (primary) hypertension; Hyperlipidemia, unspecified hyperlipidemia type; Rheumatoid arthritis with positive rheumatoid factor, involving unspecified site ([facility]); Chronic pain of both knees; Medication refill [...] Sex Assigned at Male 10/01/2021 1:36 PM SENIOR CONTROL SYSTEMS ENGINEER Legal Sex Male 10:47 AM CDT Gender Identity Male 10/01/2021 1:36 PM SENIOR CONTROL SYSTEMS ENGINEER Sexual Orientation Not on file documented as of this encounter Last Filed Vital Signs Vital Sign Reading Time Taken Comments Blood Pressure 132/80 01/03/2024 3:06 PM CDT Pulse 96 01/03/2024 3:06 PM CDT Temperature 36.8 ??C (98.2 ??F) 01/03/2024 3:06 PM CD T Respiratory Rate 18 01/03/2024 3:06 PM CDT Oxygen Saturation 96% 01/03/2024 3:06 PM CDT Inhaled Oxygen Concentration - - Weight 177 kg (389 lb 6.4 oz) 01/03/2024 3:06 PM CDT Height 200.7 cm (6' 7 ) 01/03/2024 3:06 PM CDT Body Mass Index 43.87 01/03/2024 3:06 PM CDT documented in this encounter Progress Notes * Lena Haq, BOXER OPERATOR - 01/03/2024 3:00 PM CDT Subjective: Ronnie Tadeo is a 53 y.o. male. Chief Complaint: Chief Complaint Patient presents with Chronic Condition-multiple Follow-up History Reviewed: The following portions of the patient's chart were reviewed in this encounter and updated as appropriate: Tobacco Allergies Meds Problems Med Hx Surg Hx Fam Hx Here for med refills. Takes meds as prescribed. No complaints today. Trying to work on diet and exercise. Plans to retire in February. Started taking fish oil as he thinks this will help his cholesterol. Review of Systems Constitutional: Negative. Negative for chills, fatigue and fever. Respiratory: Negative for shortness of breath. Cardiovascular: Negative for chest pain. Gastrointestinal: Negative for diarrhea, nausea and vomiting. Neurological: Negative for dizziness. Visit Vitals BP 132/80 Pulse 96 Temp 98.2 ??F Resp 18 Ht 6' 7 Wt (!) 389 lb 6.4 oz SpO2 96% BMI 43.87 kg/m?? Smoking Status Heavy Smoker BSA 3.14 m?? Current Outpatient Medications: aspirin (ST SHIRA) 81 MG EC tablet, Take 81 mg by mouth 1 (one) time each day., Disp: , Rfl: [place]-3 Fatty Acids (Fish Oil) 1000 MG capsule [...] file Tobacco Use Smoking status: Heavy Smoker Packs/day: 1.5 Types: Cigarettes Smokeless tobacco: Never Tobacco comments: [...] Diagnoses and all orders for this visit: Class 3 severe obesity due to excess calories with serious comorbidity and body mass index (BMI) of40.0 to 44.9 in adult ([facility]) (Primary) Assessment & Plan: Pt has an elevated BMI over 30 Body mass index is BMI Readings from Last 1 Encounters: 01/03/24 43.87 kg/m?? and you will need to work hard on reducing carbohydrates and total calories. You may use the free smart phone [employer] to help track calories and try to reduce by 15%every 4 weeks. You should also work on reducing your total portion sizes. You should be exercising about 30 minutes every day with cardio work outs. You should strive to avoid regular soda, juices and alcohol. Essential (primary) hypertension Assessment & Plan: Pt has h/o HTN [...] before you use any other medicines, including cwuz-rgx-xpxpyndvsfdiwejz. Make sure your doctor knows all of [...] fruits and vegetables. atorvastatin 80 mg daily Will recheck labs at next appt Orders: - atorvastatin (LIPITOR) 80 MG tablet; Take 1 tablet (80 mg total) by mouth 1 (one) time each day. Rheumatoid arthritis with positive rheumatoid factor, involving unspecified site (CMS/HCC) - diclofenac (VOLTAREN) 75 MG EC tablet; [...] diet. Follow up prn. Lena Haq NP documented in this encounter Miscellaneous Notes * Assessment & Plan Note - Lena Haq NP - 01/03/2024 3:43 PM CDTAssociated Problem(s): Obesity, unspecified Pt has an elevated BMI over 30 Body mass index is BMI Readings from Last 1 Encounters: 01/03/24 43.87 kg/m?? and you will need to work hard on reducing carbohydrates and total calories. You may use the free smart phone [employer] Audiopal to help track calories and try to reduce by 15%every 4 weeks. You should also work on reducing your total portion sizes. You should be exercising about 30 minutes every day with cardio work outs. You should strive to avoid regular soda, juices and alcohol. * Assessment & Plan Note - Lena Haq NP - 01/03/2024 3:42 PM CDTAssociated Problem(s): Medication refill Meds dispensed. Take as prescribed. Patient was counseled on medication risk, side effects, and possible complications. Patient was counseled on how to properly take the medication and to call with any adverse reactions. Patient stated understanding. Stay active. Watch diet. Follow up prn. * Assessment & Plan Note - Lena Haq NP - 01/03/2024 3:42 PM CDTAssociated Problem(s): Hyperlipidemia Eat heart-healthy foods. [...] before you use any other medicines, including dlpp-lsj-svavavfmjncooifg. Make sure your doctor knows all of [...] fruits and vegetables. atorvastatin 80 mg daily Will recheck labs at next appt * Assessment & Plan Note - Lena Haq NP - 01/03/2024 3:41 PM CDTAssociated Problem(s): Essential (primary) hypertension Pt [...] Plan Note - Lena Haq NP - 01/03/2024 3:41 PM CDTAssociated Problem(s): Chronic pain of both knees Stable on diclofenac documented in this encounter Plan of Treatment Not on file documented as of this encounter Visit Diagnoses Diagnosis Class 3 severe obesity due to excess calories with serious comorbidity and body mass index (BMI) of 40.0 to 44.9 in adult ([facility])- Primary Essential (primary) hypertension Unspecified essential hypertension Hyperlipidemia, unspecified hyperlipidemia type Rheumatoid arthritis with positive rheumatoid factor, involving unspecified site (CMS/[facility]) Chronic pain of both knees Medication refill Issue of repeat prescriptions documented in this encounter Care Teams Cook Barbecue Relationship Specialty Start Date End Date Lena Haq NP [address] [place] [address] PCP - General Family Medicine 01/25/22 07/31/24 documented as of this encounter
--- OUTSIDE RECORDS SUMMARY | 2024-09-22 23:36 | XMS_ITS | Encounter Summary ---
Author Organization [facility] Address [address] [place], [place] [id number] Phone [email or web address] Care Team Providers Care Assessor Name Role Phone Lena Haq NP Primary Care Provider [phone] Reason for Visit * Reason Onset Date Comments Annual HRA & Biometrics 11/09/2023 Incentive - Biometric Screening Encounter Details Date Type Department Care Team (Late st Contact Info) Description 11/09/2023 8:45 AM MOLD CLEANING AND STORAGE SUPERVISOR Biometric [address] [address] Lena Haq NP [address] [place] [id number] Screening for diabetes mellitus (Primary Dx); Encounter for screening for cardiovascular disorders; Encounter for screening for lipid disorder; Encounter for screening for other disorder Social History Tobacco Use Types Packs/Day Years Used Date Smoking Tobacco: Heavy Smoker Cigarettes Smokeless Tobacco: Never Comments:Smoking History Pac ks/day: 6 cigarettes Alcohol Use Standard Drinks/Week Comments [...] Sex Assigned at Male 10/01/2021 1:36 PM MOLD CLEANING AND STORAGE SUPERVISOR Legal Sex Male 10:47 AM CDT Gender Identity Male 10/01/2021 1:36 PM MOLD CLEANING AND STORAGE SUPERVISOR Sexual Orientation Not on file documented as of this encounter Last Filed Vital Signs Vital Sign Reading Time Taken Comments Blood Pressure 136/78 11/09/2023 8:53 AM MOLD CLEANING AND STORAGE SUPERVISOR Pulse 92 11/09/2023 8:53 AM MOLD CLEANING AND STORAGE SUPERVISOR Temperature - - Respiratory Rate - - Oxygen Saturation - - Inhaled Oxygen Concentration - - Weight 173 kg (381 lb 9.6 oz) 11/09/2023 8:53 AM MOLD CLEANING AND STORAGE SUPERVISOR Height 200.7 cm (6' 7 ) 11/09/2023 8:53 AM MOLD CLEANING AND STORAGE SUPERVISOR Body Mass Index 42.99 11/09/2023 8:53 AM MOLD CLEANING AND STORAGE SUPERVISOR documented in this encounter Patient Instructions * Patient Instructions* Merced Leal RN - 11/09/2023 8:45 AM MOLD CLEANING AND STORAGE SUPERVISOR Completing your HRA with [facility] [place] [facility] is the first step on the path toward wellness and preventive healthcare. Today you completed the HRA blood draw and vitals. It is important for you to review these results with a healthcare provider as the next step in the HRA process. To schedule this review with a [facility] [place] [facility] provider, download the [employer] andrews or [employer]. Sign in or click Sign up now to create your account. Once logged in, click Schedule an appointment . CLEANING AND STORAGE SUPERVISOR documented in this encounter Progress Notes * Merced Leal RN - 11/09/2023 8:45 AM CST Ronnie Tadeo is a 53 y.o. male presents 11/09/2023 for an Annual Health Risk Assessment Visit. Labs drawn via left antecubital on the first attempt without difficulty. . Manual pressure applied to site upon completion of venipuncture. no active bleeding noted Patient tolerated lab procedure well: Yes Diagnoses and all orders for this visit: Screening for diabetes mellitus - CMP12+LP+6AC(Glucose>100 Reflex A1c) ([id number]) - [facility] Encounter for screening for cardiovascular disorders - CMP12+LP+6AC(Glucose>100 Reflex A1c) ([id number]) - [facility] Encounter for screening for lipid disorder - CMP12+LP+6AC(Glucose>100 Reflex A1c) ([id number]) - [facility] Encounter for screening for other disorder - CMP12+LP+6AC(Glucose>100 Reflex A1c) ([id number]) - [facility] CLEANING AND STORAGE SUPERVISOR documented in this encounter Plan of Treatment Not on file documented as of this encounter Procedures Procedure Name Priority Date/Time Associated Diagnosis Comments CMP12+LP+6AC (A1C) [facility] Routine 11/09/2023 9:26 AM MOLD CLEANING AND STORAGE SUPERVISOR Screening for diabetes mellitus Encounter for screening for cardiovascular disorders Encounter for screening for lipid disorder Encounter for screening for other disorder N/O HEMOGLOBIN A1C Routine 11/09/2023 9: 26 AM MOLD CLEANING AND STORAGE SUPERVISOR documented in this encounter Results * (ABNORMAL) Hgb A1C Hemoglobin Glycosylated (25743) (11/09/2023 9:26 AM MOLD CLEANING AND STORAGE SUPERVISOR) Hemoglobin A1C 6.4(H) 4.8 - 5.6 % [facility] 1 Comment: ? Prediabetes: 5.7 - 6.4 ? Diabetes: >6.4 ? Glycemic control for adults with diabetes: <7.0 11/09/2023 9:26 AM MOLD CLEANING AND STORAGE SUPERVISOR 11/09/2023 Comment:Blood, Venou Narrative [facility] - 11/10/2023 12:08 PM MOLD CLEANING AND STORAGE SUPERVISOR Performed at: ??01 - [facility] [address] ??[id number] Manufacturer Agent: Bo Rivera PhD, Phone: ??[phone] us Lena Haq NP LAB BLOOD ORDERABLES Final Res ult [facility] - [facility] * (ABNORMAL) CMP12+LP+6AC(Glucose>100 Reflex A1c) ([id number]) - [facility] (11/09/2023 9:26 AM MOLD CLEANING AND STORAGE SUPERVISOR) Glucose 184(H) 70 - 99 mg/dL [facility] 1 Uric Acid 4.9 3.8 - 8.4 mg/dL [facility] 1 Comment:Therapeutic target f or gout patients: <6.0 BUN 13 6 - 24 mg/dL [facility] 1 Creatinine 0.88 0.76 - 1.27 mg/dL [facility] 1 eGFR 102 >59 mL/min/1.7 3 [facility] 1 BUN/Creatinine Ratio 15 9 - 20 [facility] 1 Sodium 140 134 - 144 mmol/L [facility] 1 Potassium 4.5 3.5 - 5.2 mmol/L [facility] 1 Chloride 101 96 - 106 mmol/L [facility] 1 Calcium 9.0 8.7 - 10.2 mg/dL [facility] 1 Phosphorus 3.1 2.8 - 4.1 mg/dL [facility] 1 Total Protein 7.1 6.0 - 8.5 g/dL [facility] 1 Albumin 4.3 3.8 - 4.9 g/dL [facility] 1 Globulin, Total 2.8 1.5 - 4.5 g/dL [facility] 1 A/G Ratio 1.5 1.2 - 2.2 [facility] 1 Total Bilirubin 0.5 0.0 - 1.2 mg/dL [facility] 1 Alkaline Phosphatase 109 44 - 121 IU/L [facility] 1 LD 155 121 - 224 IU/L [facility] 1 AST 19 0 - 40 IU/L [facility] 1 ALT (SGPT) 26 0 - 44 IU/L [facility] 1 GGT 26 0 - 65 IU/L [facility] 1 Iron 115 38 - 169 ug/dL [facility] 1 Cholesterol 186 100 - 199 mg/dL [facility] 1 Triglycerides 212(H) 0 - 149 mg/dL [facility] 1 HDL 32(L) >39 mg/dL [facility] 1 VLDL Cholesterol Williams 37 5 - 40 mg/dL [facility] 1 LDL Calculated 117(H) 0 - 99 mg/dL [facility] 1 Chol/HDL Ratio 5.8(H) 0.0 - 5.0 ratio [facility] 1 Comment: ?T. Chol/HDL Ratio ?Men ??Women ?1/2 Avg.Risk ??3.4 ?3.3 ?Avg.Risk ??5.0 ?4.4 ? 2X Avg.Risk ??9.6 ?7.1 ? 3X Avg.Risk 23.4 ?? 11.0 Estimated CHD Risk 1.2(H) 0.0 - 1.0 times avg. [facility] 1 Comment: The CHD Risk is based on the T. Chol/HDL ratio. Other factors affect CHD Risk such as hypertension, smoking, diabetes, severe obesity, and family history of premature CHD. Blood (Blood, Venous) 11/09/2023 9:26 AM MOLD CLEANING AND STORAGE SUPERVISOR 11/09/2023 Comment:Blood, Venou Narrative [facility] - 11/10/2023 12:08 PM MOLD CLEANING AND STORAGE SUPERVISOR Performed at: ??01 - [facility] [address] ??[id number] Manufacturer Agent: Bo Rivera PhD, Phone: ??[phone] us Lena Haq NP LAB BLOOD ORDERABLES Final Res ult [facility] - [facility] 1 documented in this encounter Visit Diagnoses Diagnosis Screening for diabetes mellitus- Primary Encounter for screening for cardiovascular disorders Encounter for screening for lipid disorder Encounter for screening for other disorder documented in this encounter Care Teams Assessor Relationship Specialty Start Date End Date Lena Haq NP [address] [place] [address] PCP - General Family Medicine 01/25/22 07/31/24 documented as of this encounter
--- OUTSIDE RECORDS SUMMARY | 2024-09-22 23:36 | XMS_ITS | Clinical Summary ---
Author Organization [facility] Address [address] [place] [id number] Phone [email or web address] Care Team Providers Care Drafter Electromechanical Name Role Phone Unavailable Primary Care Provider Unavailabl e Allergies Active Allergy Reactions Criticality Noted Date Comments Codeine 10/07/2021 Lucid dreaming, itchy ears Medications aspirin (ST SHIRA) 81 MG EC tablet Take 81 mg by mouth 1 (one) time each day. Active Walker-3 Fatty Acids (Fish Oil) 1000 MG capsule delayed-release Take by mouth. Active amLODIPine (NORVASC) 5 MG tabletIndications:E ssential (primary) hypertension Take 1 tablet (5 mg total) by mouth 1 (one) time each day. 90 tablet 4 03/06/20 25 Active atorvastatin (LIPITOR) 80 MG tabletIndications:H yperlipidemia, unspecified hyperlipidemia type Take 1 tablet (80 mg total) by mouth 1 (one) time each day. 90 tablet 4 03/06/20 25 Active diclofenac (VOLTAREN) 75 MG EC tabletIndications:R heumatoid arthritis with positive rheumatoid factor, involving unspecified site (CMS/HCC),Chronic pain of both knees Take 1 tablet (75 mg total) by mouth in the morning and 1 tablet (75 mg total) in the evening. Do not crush, chew, or split. . 200 tablet 3 4 03/06/20 25 Active lisinopril (ZESTRIL) 40 MG tabletIndications:E ssential (primary) hypertension Take 1 tablet (40 mg total) by mouth 1 (one) time each day. 90 tablet 1 4 Active metFORMIN (GLUCOPHAGE) 500 MG tabletIndications:T ype 2 diabetes mellitus without complication, without long-term current use of insulin ([facility]) Take 1 tablet (500 mg total) by mouth in the morning and 1 tablet (500 mg total) in the evening. Take with meals. 180 tablet 4 03/18/20 25 Active Active Problems Problem Noted Date Diagnosed Date Plantar fasciitis, left 06/14/2023 Assessment & Plan (09/27/2023 3:45 PM DIRECTOR OF PHYSICAL SECURITY): Has been following with podiatry Doing much better after injections and orthotics Assessment & Plan (06/14/2023 4:48 PM CDT): Stretching reviewed with pt Tylenol prn package instructions If no improvement or worsening, will need to see podiatry Chronic pain of both knees 12/20/2022 Assessment & Plan (03/06/2024 2:43 PM CDT): Stable on diclofenac Assessment & Plan (01/03/2024 3:41 PM CDT): Stable on diclofenac Prediabetes 09/09/2022 Obesity, unspecified 04/21/2021 Overview (07/06/2021): Assessment & Plan (01/03/2024 3:43 PM CDT): Pt has an elevated BMI over 30 Body mass index is BMI Readings from Last 1 Encounters: 01/03/24 43.87 kg/m?? and you will need to work hard on reducing carbohydrates and total calories. You may use the free smart phone andrews [employer] to help track calories and try to reduce by 15% every 4 weeks. You should also work on reducing your total portion sizes. You should be exercising about 30 minutes every day with cardio work outs. You should strive to avoid regular soda, juices and alcohol. Assessment & Plan (09/27/2023 3:44 PM DIRECTOR OF PHYSICAL SECURITY): Pt has an elevated BMI over 30 Body mass index is BMI Readings from Last 1 Encounters: 09/27/23 42.40 kg/m?? and you will need to work hard on reducing carbohydrates and total calories. You may use the free smart phone andrews [employer] to help track calories and try to reduce by 15% every 4 weeks. You should also work on reducing your total portion sizes. You should be exercising about 30 minutes every day with cardio work outs. You should strive to avoid regular soda, juices and alcohol. Assessment & Plan (06/14/2023 4:47 PM CDT): Weight down almost 20 pounds by cutting out soda Pt has an elevated BMI over 30 Body mass index is BMI Readings from Last 1 Encounters: 06/14/23 40.92 kg/m?? and you will need to work hard on reducing carbohydrates and total calories. You may use the free smart phone andrews [employer] to help track calories and try to reduce by 15% every 4 weeks. You should also work on reducing your total portion sizes. You should be exercising about 30 minutes every day with cardio work outs. You should strive to avoid regular soda, juices and alcohol. Hyperlipidemia 04/21/2021 Overview (07/06/2021): Assessment & Plan (03/06/2024 2:43 PM CDT): Eat heart-healthy foods. Eat fruits, vegetables, whole [...] doctor if you think you are having a problem with your medicine. Check with your doctor or pharmacist before you use any other medicines, including uovw-qgb-bymqnie medicines. Make sure your doctor knows all of the medicines, vitamins, herbal products, and supplements you take. Taking some medicines together can cause problems. Triglycerides and cholesterol elevated. Strict low fat diet discussed. Eating a low-fat, heart-healthy diet is a good start. Try not to eat fatty cuts of beef and pork. Eat more chicken, turkey and fish. Drink fat-free milk instead of whole milk. Avoid other high-fat dairy foods like cheese, butter and ice cream. Avoid fried foods. Eat lots of fresh fruits and vegetables. atorvastatin 80 mg daily Assessment & Plan (01/03/2024 3:42 PM CDT): Eat heart-healthy foods. Eat fruits, vegetables, whole [...] doctor if you think you are having a problem with your medicine. Check with your doctor or pharmacist before you use any other medicines, including gzuo-dsw-pnwbyey medicines. Make sure your doctor knows all of the medicines, vitamins, herbal products, and supplements you take. Taking some medicines together can cause problems. Triglycerides and cholesterol elevated. Strict low fat diet discussed. Eating a low-fat, heart-healthy diet is a good start. Try not to eat fatty cuts of beef and pork. Eat more chicken, turkey and fish. Drink fat-free milk instead of whole milk. Avoid other high-fat dairy foods like cheese, butter and ice cream. Avoid fried foods. Eat lots of fresh fruits and vegetables. atorvastatin 80 mg daily Will recheck labs at next appt Assessment & Plan (10/05/2023 11:03 AM DIRECTOR OF PHYSICAL SECURITY): Eat heart-healthy foods. Eat fruits, vegetables, whole [...] doctor if you think you are having a problem with your medicine. Check with your doctor or pharmacist before you use any other medicines, including iazi-fov-nsxucqn medicines. Make sure your doctor knows all of the medicines, vitamins, herbal products, and supplements you take. Taking some medicines together can cause problems. Triglycerides and cholesterol elevated. Strict low fat diet discussed. Eating a low-fat, heart-healthy diet is a good start. Try not to eat fatty cuts of beef and pork. Eat more chicken, turkey and fish. Drink fat-free milk instead of whole milk. Avoid other high-fat dairy foods like cheese, butter and ice cream. Avoid fried foods. Eat lots of fresh fruits and vegetables. Increase atorvastatin to 80 mg daily Recheck labs in 1 month Discussed risk of pancreatitis and to go to er if abdominal pain or vomiting. Assessment & Plan (09/27/2023 3:42 PM DIRECTOR OF PHYSICAL SECURITY): Eat heart-healthy foods. Eat fruits, vegetables, whole [...] doctor if you think you are having a problem with your medicine. Check with your doctor or pharmacist before you use any other medicines, including fmom-zaz-xzbqpec medicines. Make sure your doctor knows all of the medicines, vitamins, herbal products, and supplements you take. Taking some medicines together can cause problems. Check labs today Continue med Assessment & Plan (06/14/2023 4:46 PM CDT): Eat heart-healthy foods. Eat fruits, vegetables, whole [...] doctor if you think you are having a problem with your medicine. Check with your doctor or pharmacist before you use any other medicines, including mhtm-ezn-grdrggo medicines. Make sure your doctor knows all of the medicines, vitamins, herbal products, and supplements you take. Taking some medicines together can cause problems. Essential (primary) hypertension 04/21/2021 Overview (07/06/2021): Assessment & Plan (03/06/2024 2:43 PM CDT): Pt has h/o HTN and will need [...] Taking meds as prescribed Continue same meds Assessment & Plan (01/03/2024 3:41 PM CDT): Pt has h/o HTN and will need [...] Taking meds as prescribed Continue same meds Assessment & Plan (10/05/2023 11:01 AM DIRECTOR OF PHYSICAL SECURITY): Pt has h/o HTN and will need [...] Taking meds as prescribed Continue same meds Assessment & Plan (09/27/2023 3:43 PM DIRECTOR OF PHYSICAL SECURITY): Pt has h/o HTN and will need [...] and take any prescribed medications as ordered. Will come in next week for a bp check Will try to take his meds daily Assessment & Plan (06/14/2023 4:46 PM CDT): Pt has h/o HTN and will need [...] and take any prescribed medications as ordered. Tobacco use 04/21/2021 Overview (07/06/2021): Assessment & Plan (09/27/2023 3:43 PM DIRECTOR OF PHYSICAL SECURITY): Encouraged to quit smoking - he is not interested Medication refill 02/04/2021 Overview (07/06/2021): Assessment & Plan (03/06/2024 2:43 PM CDT): Meds dispensed. Take as prescribed. Patient was counseled on medication risk, side effects, and possible complications. Patient was counseled on how to properly take the medication and to call with any adverse reactions. Patient stated understanding. Stay active. Watch diet. Follow up prn. Assessment & Plan (01/03/2024 3:42 PM CDT): Meds dispensed. Take as prescribed. Patient was counseled on medication risk, side effects, and possible complications. Patient was counseled on how to properly take the medication and to call with any adverse reactions. Patient stated understanding. Stay active. Watch diet. Follow up prn. Assessment & Plan (10/05/2023 11:00 AM DIRECTOR OF PHYSICAL SECURITY): Meds dispensed. Take as prescribed. Patient was counseled on medication risk, side effects, and possible complications. Patient was counseled on how to properly take the medication and to call with any adverse reactions. Patient stated understanding. Stay active. Watch diet. Follow up prn. Assessment & Plan (09/27/2023 3:43 PM DIRECTOR OF PHYSICAL SECURITY): Meds dispensed. Take as prescribed. Patient was counseled on medication risk, side effects, and possible complications. Patient was counseled on how to properly take the medication and to call with any adverse reactions. Patient stated understanding. Stay active. Watch diet. Follow up prn. Assessment & Plan (06/14/2023 4:46 PM CDT): Meds dispensed. Take as prescribed. Patient was counseled on medication risk, side effects, and possible complications. Patient was counseled on how to properly take the medication and to call with any adverse reactions. Patient stated understanding. Stay active. Watch diet. Follow up prn. Obstructive sleep apnea (adult) (pediatric) 01/23 Overview (07/06/2021): Rheumatoid arthritis, unspecified 02/02/2021 Overview (07/06/2021): Assessment & Plan (03/06/2024 2:42 PM CDT): Uses diclofenac daily. Declines further treatment/referral Assessment & Plan (09/27/2023 3:42 PM DIRECTOR OF PHYSICAL SECURITY): Uses diclofenac daily. Declines further treatment/referral Other forms of dyspnea 02/02/2021 Overview (07/06/2021): Resolved Problems Problem Noted Date Diagnosed Date Resolved Date Localized swelling, mass and lump, neck 07/08/2021 06/14/2023 Overview (07/12/2021): Acute sialoadenitis 06/11/2021 06/14/20 23 Overview (07/06/2021): Vitamin D deficiency, unspecified 04/21/2021 09/27/2023 Overview (07/06/2021): Persons encountering health services in other specified circumstances 04/21/2021 10/07/2021 Overview (07/06/2021): Encounter for screening, unspecified 04/16/2021 10/07/2021 Overview (07/06/2021): Encounter for general adult medical examination without abnormal findings 02/02/2021 Overview (07/06/2021): Contact with and (suspected) exposure to other viral communicable diseases 10/05/20202021 Overview (07/06/2021): Immunizations Name Administration Dates Next Due Covid-19 (Sars-cov-2), unspe cified (CVX-213) 07/07/2021 Hepatitis A (HAVRIX-ADULT VA QTA-ADULT) (CVX-52) 09/08/2016,01/22/2016 Hepatitis B (ENGERIX-B RECOMBIVAX) (CVX-43) 08/25,03/10/2016,01/22/2016 Influenza multi-dose VIAL (A fluria,Fluzone) trivalent (CVX-141) 06/28/2012 Tdap (ADACEL BOOSTRIX) (CVX-115) 03/10/2016 Social History Tobacco Use Types Packs/Day Years [...] Sex Assigned at Male 10/01/2021 1:36 PM DIRECTOR OF PHYSICAL SECURITY Legal Sex Male 10:47 AM CDT Gender Identity Male 10/01/2021 1:36 PM DIRECTOR OF PHYSICAL SECURITY Sexual Orientation Not on file Last Filed Vital Signs Vital Sign Reading [...] Mass Index 43.8 03/18/2024 9:34 AM CDT Plan of Treatment Health Maintenance Due Date Last Done Comments Colorectal Cancer Screening 01/24/2024 01/23/2019 Dental Cleaning/Exam 03/25/2024 03/25/2023, 01/23/2022 Influenza Immunization (#1) 2024 06/28/2012 Pneumococcal: Ped (0 to 5 Yrs) and At-Risk Member (6 to 64 Yrs) (1 of 2 - PCV) 03/18/2025 Postponed from 1975 (Member Refused) Tetanus Diphtheria and Pertussis Immunization (2 - Td or Tdap) 03/10/2026 03/10/2016 Tetanus (Tdap or Td) Immunization 09/25/2026 09/25/2016, 03/10/2016 Hepatitis A Immunization Aged Out 016, 01/22/2016 No longer eligible based on patient's age to complete this topic Hepatitis B Immunization Discontinued 016, 03/10/2016, 01/22/2016 Covid-19 Immunization Discontinued 07/07/2021 , 07/05/2021 HIB Immunization Aged Out No longer e ligible based on patient's age to complete this topic HPV Immunization Aged Out No longer e ligible based on patient's age to complete this topic Polio Immunization Aged Out No longer eligible based on patient's age to complete this topic Zoster Immunization Discontinued Insurance [facility] NO COPAY [place]
--- OUTSIDE RECORDS SUMMARY | 2024-09-22 23:37 | XMS_ITS | Encounter Summary ---
Author Organization [facility] Address [address] [place] [address]. [place], [place] [address] [place] [address] Care Team Providers Care Time Study Technician Name Role Phone Vincenzo Salazar MD Primary Care Provider [phone] Encounter Details Date Type Department Care Team (Late st Contact Info) Description 07/10/2013 Emergency [facility] [place] [address] Gaby Guerra APNP Social History Tobacco Use Types Packs/Day Years Used Date Smoking Tobacco: Never Assessed Sex and Gender Information Value Date Recorded Sex Assigned at Not on file Legal Sex Male 5:29 PM CDT Gender Identity Not on file Sexual Orientation Not on file documented as of this encounter Plan of Treatment Not on file documented as of this encounter Visit Diagnoses Diagnosis Open wound of scalp Open wound of scalp, without mention of complication documented in this encounter Care Teams Time Study Technician Relationship Specialty Start Date End Date Vincenzo Salazar MD [address] [facility] [address] [place] [address] PCP - General 07/10/13 03/21/24 documented as of this encounter
--- OUTSIDE RECORDS SUMMARY | 2024-09-22 23:37 | XMS_ITS | Encounter Summary ---
Author Organization [facility] Address [address] [place] [address]. [place] [address] [place] [address] Care Team Providers Care Prison Guard Supervisor Name Role Phone Lena Haq Primary Care Provider [phone] Reason for Visit * Reason Onset Date Comments Consult 05/03/2024 Encounter Details Date Type Department Care Team (Late st Contact Info) Description 05/03/[address] [address] Susana Ríos RMA Consult Social History Tobacco Use Types Packs/Day Years Used Date Smoking Tobacco: Never Assessed Sex and Gender Information Value Date Recorded Sex Assigned at Not on file Legal Sex Male 5:29 PM CDT Gender Identity Not on file Sexual Orientation Not on file documented as of this encounter Progress Notes * NATALY Tucker - 05/03/2024 10:13 AM CDT Left message to schedule consult per Perri Haq NP (x2). Will send letter for patient to contact our office to schedule documented in this encounter Plan of Treatment Not on file documented as of this encounter Visit Diagnoses Not on filedocumented in this encounter Care Teams Prison Guard Supervisor Relationship Specialty Start Date End Date Lena Haq FNP [address] [place] [address] PCP - General NURSE PRACTITIONER 03/22/24 documented as of this encounter
--- OUTSIDE RECORDS SUMMARY | 2024-09-22 23:37 | XMS_ITS | Encounter Summary ---
Author Organization [facility] Address [address] [place] [address]. [place], [place] [id number] [place] [id number] Care Team Providers Care Civil Drafting Technician Name Role Phone Vincenzo Salazar MD Primary Care Provider [phone] Jerome Finch MD Primary Care Provider Unavailable Encounter Details Date Type Department Care Team (Late st Contact Info) Description 10/07/2011 Abstract [facility] [place] [address] Marko Brooks IV, MD [address] [id number] Social History Tobacco Use Types Packs/Day Years Used Date Smoking Tobacco: Never Assessed Sex and Gender Information Value Date Recorded Sex Assigned at Not on file Legal Sex Male 5:29 PM CDT Gender Identity Not on file Sexual Orientation Not on file documented as of this encounter Plan of Treatment Not on file documented as of this encounter Visit Diagnoses Diagnosis Sprain of hand Sprain of hand, unspecified site documented in this encounter Care Teams Civil Drafting Technician Relationship Specialty Start Date End Date Vincenzo Salazar MD [address] [facility] [address] [place] [address] PCP - General 07/10/13 03/21/24 Jerome Finch MD PCP - General 10/07/1107/09 documented as of this encounter
--- OUTSIDE RECORDS SUMMARY | 2024-09-22 23:37 | XMS_ITS | Encounter Summary ---
Author Organization [facility] Address [address] [place] [id number] Phone [email or web address] Chinese Care Team Providers Care Automatic Edger Name Role Phone Lena Haq INDUSTRIAL DIAMOND POLISHER Primary Care Provider [phone] Reason for Visit * Reason Comments Annual Physical Exam Encounter Details Date Type Department Care Team (Latest Contact Info) Description 09/08/2022 9:00 AM WELT ROUGHER Office Visit [facility] [address] [place] [address] Lena Haq NP [address] [place] [address] Wellness examination (Primary Dx); Hyperlipidemia, unspecified hyperlipidemia type; Rheumatoid arthritis with positive rheumatoid factor, involving unspecified site (CMS/HCC); Chronic pain of both knees; Essential (primary) hypertension; Obstructive sleep apnea (adult) (pediatric); Other forms of dyspnea; Tobacco use; Situational depression; Severe obesity (BMI >= 40) (CMS/HCC); BMI 40.0-44.9, adult (CMS/HCC); Bilateral impacted cerumen Social History Tobacco Use Types Packs/Day Years [...] Depression Answer Date Recorded PHQ Total Score 0 09/08/2022 Sex and Gender Information Value Date Recorded Sex Assigned at Male 10/01/2021 1:36 PM WELT ROUGHER Legal Sex Male 10:47 AM CDT Gender Identity Male 10/01/2021 1:36 PM WELT ROUGHER Sexual Orientation Not on file documented as of this encounter Last Filed Vital Signs Vital Sign Reading Time Taken Comments Blood Pressure 160/94 09/08/2022 9:05 AM WELT ROUGHER Pulse 93 09/08/2022 9:05 AM WELT ROUGHER Temperature 36.4 ??C (97.6 ??F) 09/08/2022 9:05 AM CS T Respiratory Rate 18 09/08/2022 9:05 AM WELT ROUGHER Oxygen Saturation 96% 09/08/2022 9:05 AM WELT ROUGHER Inhaled Oxygen Concentration - - Weight 169 kg (373 lb 6.4 oz) 09/08/2022 9:05 AM WELT ROUGHER Height 200.7 cm (6' 7 ) 09/08/2022 9:05 AM WELT ROUGHER Body Mass Index 42.07 09/08/2022 9:05 AM WELT ROUGHER documented in this encounter Patient Instructions * Patient Instructions* Lena Haq NP - 09/08/2022 9:00 AM WELT ROUGHER Images from the original note were not included. Learning About Being Physically Active What is physical activity? Being physically active means doing any kind of activity that gets your body moving. The types of physical activity that can help you get fit and stay healthy include: ??? Aerobic or cardio activities. These make your heart beat faster and make you breathe harder, such as brisk walking, riding a bike, or running. They strengthen your heart and lungs and build up your endurance. ??? Strength training activities. These make your muscles work against, or resist, something. Examples include lifting weights or doing push-ups. These activities help tone and strengthen your muscles and bones. ??? Stretches. These let you move your joints and muscles through their full range of motion. Stretching helps you be more flexible. Reaching a balance between these three types of physical activity is important because each one contributes to your overall fitness. What are the benefits of being active? Being active is one of the best things you can do for your health. It helps you to: ??? Feel stronger and have more energy to do all the things you like to do. ??? Focus better at school or work. ??? Feel, think, and sleep better. ??? Reach and stay at a healthy weight. ??? Lose fat and build lean muscle. ??? Lower your risk for serious health problems, including diabetes, heart attack, high blood pressure, and some cancers. ??? Keep your heart, lungs, bones, muscles, and joints strong and healthy. How can you make being active part of your life? Start slowly. Make it your long-term goal to get at least 30 minutes of exercise on most days of the week. Walking is a good choice. You also may want to do other activities, such as running, swimming, cycling, or playing tennis or team sports. Pick activities that you like--ones that make your heart beat faster, your muscles stronger, and your muscles and joints more flexible. If you find more than one thing you like doing, do them all. You don't have to do the same thing every day. Get your heart pumping every day. Any activity that makes your heart beat faster and keeps it at that rate for a while counts. Here are some great ways to get your heart beating faster: ??? Go for a brisk walk, run, or bike ride. ??? Go for a hike or swim. ??? Go in-line skating. ??? Play a game of touch football, basketball, or soccer. ??? Ride a bike. ??? Play tennis or racquetball. ??? Climb stairs. Even some commercial representative can be aerobic--just do them at a faster pace. Vacuuming, raking or mowing the lawn, sweeping the garage, and washing and waxing the car all can help get your heart rate up. Strengthen your muscles during the week. You don't have to lift heavy weights or grow big, bulky muscles to get stronger. Doing a few simple activities that make your muscles work against, or resist, something can help you get stronger. For example, you can: ??? Do push-ups or sit-ups, which use your own body weight as resistance. ??? Lift weights or dumbbells or use stretch bands at home or in a gym or community center. Stretch your muscles often. Stretching will help you as you become more active. It can help you stay flexible, loosen tight muscles, and avoid injury. It can also help improve your balance and posture and can be a great way to relax. Be sure to stretch the muscles you'll be using when you work out. It's best to warm your muscles slightly before you stretch them. Walk or do some other light aerobic activity for a few minutes, and then start stretching. When you stretch your muscles: ??? Do it slowly. Stretching is not about going fast or making sudden movements. ??? Don't push or bounce during a stretch. ??? Hold each stretch for at least 15 to 30 seconds, if you can. You should feel a stretch in the muscle, but not pain. ??? Breathe out as you do the stretch. Then breathe in as you hold the stretch. Don't hold your breath. If you're worried about how more activity might affect your health, have a checkup before you start. Follow any special advice your doctor gives you for getting a smart start. Where can you learn more? Go to https://www.Innorange Oy.myQaa Enter W332 in the search box to learn more about Learning About Being Physically Active. Current as of: October 20, 2021?Content Version: 13.4 ?? Onavo. Care instructions adapted under license by your healthcare professional. If you have questions about a medical condition or this instruction, always ask your healthcare professional. Onavo disclaims any warranty or liability for your use of this information. Eating Healthy Foods: Care Instructions Your Care Instructions Eating healthy foods can help lower your risk for disease. Healthy food gives you energy and keeps your heart strong, your brain active, your muscles working, and your bones strong. A healthy diet includes a variety of foods from the basic food groups: grains, vegetables, fruits, milk and milk products, and meat and beans. Some people may eat more of their favorite foods from only one food group and, as a result, miss getting the nutrients they need. So, it is important to payattention not only to what you eat but also to what you are missing from your diet. You can eat a he althy, balanced diet by making a few small changes. Follow-up care is a davidson part of your treatment and safety. Be sure to make and go to all appointments, and call your doctor if you are having problems. It's also a good idea to know your test resultsand keep a list of the medicines you take. How can you care for yourself at home? Look at what you eat ??? Keep a food diary for a week or two and record everything you eat or drink. Track the number ofservings you eat from each food group. ??? For a balanced diet every day, eat a variety of: ? 6 or more ounce-equivalents of grains, such as cereals, breads, crackers, rice, or pasta, every day. An ounce-equivalent is 1 slice of bread, 1 cup of tsdtu-uj-cfy cereal, or ?? cup of cooked rice,cooked pasta, or cooked cereal. ? 2?? cups of vegetables, especially: - Dark-green vegetables such as broccoli and spinach. - [place] vegetables such as carrots and sweet potatoes. - Dry beans (such as almaraz and kidney beans) and peas (such as lentils). ? 2 cups of fresh, frozen, or canned fruit. A small apple or 1 banana or orange equals 1 cup. ? 3 cups of nonfat or low-fat milk, yogurt, or other milk products. ? 5?? ounces of meat and beans, such as chicken, fish, lean meat, beans, nuts, and seeds. One egg, 1 tablespoon of peanut butter, ?? ounce nuts or seeds, or ?? cup of cooked beans equals 1 ounce of meat. ??? Learn how to read food labels for serving sizes and ingredients. Fast-food and convenience-foodmeals often contain few or no fruits or vegetables. Make sure you eat some fruits and vegetables tomake the meal more nutritious. ??? Look at your food diary. For each food group, add up what you have eaten and then divide the total by the number of days. This will give you an idea of how much you are eating from each food group. See if you can find some ways to change your diet to make it more healthy. Start small ??? Do not try to make dramatic changes to your diet all at once. You might feel that you are missing out on your favorite foods and then be more likely to fail. ??? Start slowly, and gradually change your habits. Try some of the following: ? Use whole wheat bread instead of white bread. ? Use nonfat or low-fat milk instead of whole milk. ? Eat brown rice instead of white rice, and eat whole wheat pasta instead of white-flour pasta. ? Try low-fat cheeses and low-fat yogurt. ? Add more fruits and vegetables to meals and have them for snacks. ? Add lettuce, tomato, cucumber, and onion to sandwiches. ? Add fruit to yogurt and cereal. Enjoy food ??? You can still eat your favorite foods. You just may need to eat less of them. If your favorite foods are high in fat, salt, and sugar, limit how often you eat them, but do not cut them out entirely. ??? Eat a wide variety of foods. Make healthy choices when eating out ??? The type of restaurant you choose can help you make healthy choices. Even fast-food chains are now offering more low-fat or healthier choices on the menu. ??? Choose smaller portions, or take half of your meal home. ??? When eating out, try: ? A veggie pizza with a whole wheat crust or grilled chicken (instead of sausage or pepperoni). ? Pasta with roasted vegetables, grilled chicken, or marinara sauce instead of cream sauce. ? A vegetable wrap or grilled chicken wrap. ? Broiled or poached food instead of fried or breaded items. Make healthy choices easy ??? Buy packaged, prewashed, sbxmk-zz-bwt fresh vegetables and fruits, such as baby carrots, salad mixes, and chopped or shredded broccoli and cauliflower. ??? Buy packaged, presliced fruits, such as melon or pineapple. ??? Choose 100% fruit or vegetable juice instead of soda. Limit juice intake to 4 to 6 oz (?? to ??cup) a day. ??? Blend low-fat yogurt, fruit juice, and canned or frozen fruit to make a smoothie for breakfast or a snack. Where can you learn more? Go to https://www.XebiaLabs Enter T756 in the search box to learn more about Eating Healthy Foods: Care Instructions. Current as of: January 31, 2022?Content Version: 13.4 ?? Onavo. Care instructions adapted under license by your healthcare professional. If you have questions about a medical condition or this instruction, always ask your healthcare professional. Onavo disclaims any warranty or liability for your use of this information. ROUGHER documented in this encounter Progress Notes * Lena Haq NP - 09/08/2022 9:00 AM CST Subjective: Ronnie Tadeo is a 52 y.o. male. Chief Complaint: Chief Complaint Patient presents with ??? Annual Physical Exam History Reviewed: The following portions of the patient's chart were reviewed in this encounter and updated as appropriate: Tobacco Allergies Meds Problems Med Hx Surg Hx Fam Hx Annual appt. Needs meds refills. Tries to take as prescribed. No complaints today. Continues to smoke. Does not watch diet, drinks a lot of soda. Does not exercise but is active at work and home. Review of Systems Constitutional: Negative. Negative for chills, fatigue and fever. Respiratory: Negative for shortness of breath. Cardiovascular: Negative for chest pain. Gastrointestinal: Negative for diarrhea, nausea and vomiting. Neurological: Negative for dizziness. Visit Vitals BP (!) 160/94 Pulse 93 Temp 97.6 ??F Resp 18 Ht 6' 7 Wt (!) 373 lb 6.4 oz SpO2 96% BMI 42.07 kg/m?? Smoking Status Heavy Smoker BSA 3.07 m?? Patient Active Problem List Diagnosis ??? Obstructive sleep apnea (adult) (pediatric) ??? Rheumatoid arthritis, unspecified (CMS/HCC) ??? Other forms of dyspnea ??? Vitamin D deficiency, unspecified ??? Obesity, unspecified ??? Hyperlipidemia, unspecified ??? Essential (primary) hypertension ??? Tobacco use ??? Acute sialoadenitis ??? Localized swelling, mass and lump, neck Current Outpatient Medications on File Prior to Visit Medication Sig Dispense Refill ??? aspirin (ST SHIRA) 81 MG EC tablet Take 81 mg by mouth 1 (one) time each day. ??? [DISCONTINUED] atorvastatin (LIPITOR) 40 MG tablet Take 1 tablet (40 mg total) by mouth 1 (one)time each day. 90 tablet 0 ??? [DISCONTINUED] diclofenac (VOLTAREN) 75 MG EC tablet Take 1 tablet (75 mg total) by mouth 2 (two) times a day. Do not crush, chew, or split. 200 tablet 3 ??? [DISCONTINUED] lisinopril (ZESTRIL) 30 MG tablet Take 1 tablet (30 mg total) by mouth 1 (one) time each day. 90 tablet 3 ??? [DISCONTINUED] cholecalciferol (VITAMIN D-3) 1.25 MG (36536 UT) capsule Take 1 capsule (50,000 Units total) by mouth 1 (one) time per week. (Patient not taking: Reported on 09/08/2022) 12 capsule0 ??? [DISCONTINUED] fluticasone-salmeterol (ADVAIR DISKUS) 250-50 MCG/DOSE diskus inhaler Inhale 1 puff 2 (two) times a day. Rinse mouth with water after use to reduce aftertaste and incidence of candidiasis. Do not swallow. (Patient not taking: Reported on 09/08/2022) No current facility-administered medications on file prior to visit. History reviewed. No pertinent past medical history. Past Surgical History: Procedure Laterality Date ??? ARTHROSCOPIC REPAIR ACL Right ??? KNEE ARTHROSCOPY Bilateral History reviewed. No pertinent family history. Social History Tobacco Use ??? Smoking status: Heavy Smoker Packs/day: 1.50 Types: Cigarettes ??? Smokeless tobacco: Never ??? Tobacco comments: Smoking History Packs/day: 6 cigarettes Substance Use Topics ??? Alcohol use: Yes Comment: 1-2 per month Objective: Physical Exam Vitals and nursing note reviewed. Constitutional: Appearance: Normal appearance. HENT: Head: Normocephalic and atraumatic. Right Ear: Ear canal and external ear normal. A middle ear effusion is present. Left Ear: Ear canal and external ear normal. A middle ear effusion is present. Nose: Nose normal. Mouth/Throat: Mouth: Mucous membranes are moist. Pharynx: Oropharynx is clear. Eyes: Conjunctiva/sclera: Conjunctivae normal. Cardiovascular: Rate and Rhythm: Normal rate and regular rhythm. Pulses: Normal pulses. Pulmonary: Effort: Pulmonary effort is normal. Breath sounds: Normal breath sounds. Abdominal: General: Abdomen is flat. Bowel sounds are normal. Palpations: Abdomen is soft. Musculoskeletal: Cervical back: Normal range of motion. No tenderness. Right lower leg: No edema. Left lower leg: No edema. Lymphadenopathy: Cervical: No cervical adenopathy. Skin: General: Skin is warm and dry. Neurological: General: No focal deficit present. Mental Status: He is alert and oriented to person, place, and time. Psychiatric: Mood and Affect: Mood normal. Behavior: Behavior normal. Assessment/Plan: Diagnoses and all orders for this visit: Wellness examination - CMP12+LP+6AC(Glucose>100 Reflex A1c) (654978) - [facility] - CBC Complete blood count without diff (59448) - Vitamin D 25-Hydroxy - [facility] (01297) - Hepatitis C antibody (64182) Hyperlipidemia, unspecified hyperlipidemia type - atorvastatin (LIPITOR) 40 MG tablet; Take 1 tablet (40 mg total) by mouth 1 (one) time each day. Rheumatoid arthritis with positive rheumatoid factor, involving unspecified site ([facility]) - diclofenac (VOLTAREN) 75 MG EC tablet; Take 1 tablet (75 mg total) by mouth in the morning and 1 tablet (75 mg total) in the evening. Do not crush, chew, or split. . Chronic pain of both knees - diclofenac (VOLTAREN) 75 MG EC tablet; Take 1 tablet (75 mg total) by mouth in the morning and 1 tablet (75 mg total) in the evening. Do not crush, chew, or split. . Essential (primary) hypertension - lisinopril (ZESTRIL) 40 MG tablet; Take 1 tablet (40 mg total) by mouth 1 (one) time each day. Obstructive sleep apnea (adult) (pediatric) Other forms of dyspnea Tobacco use Situational depression Severe obesity (BMI >= 40) ([facility]/HCC) BMI 40.0-44.9, adult ([facility]) Bilateral impacted cerumen Other orders - Ear cerumen removal History reviewed and updated. Screenings updated. Need to work on diet and exercise to facilitate weight loss. Take meds as prescribed. Make healthy dietary choices. Check labs today and results willbe in mychart when available. Wear sunscreen while outdoors. Wear seatbelts while in a vehicle. Do not text and drive. Follow a heart healthy diet and lifestyle. Consume 5-7 servings of fruits and vegetables a day. Maintain/attain normal body weight. Maintain good sleep schedule and sleep habits. Best Practice Advisory Action: BMI Counseling Follow-up plan has been discussed and documented for this member. ROUGHER * Merced Leal RN - 09/08/2022 9:00 AM CST Ronnie Tadeo is a 52 y.o. male presents to the [facility] 09/08/2022 for Non-Fasting lab work ordered by Health Center provider . Labs drawn via left antecubital using straight-stick 22 gauge needle on the first attempt without difficulty. Manual pressure applied to site upon completion of venipuncture without any bleeding, Band-aid applied over site. Patient tolerated lab procedure well: Yes. Merced Leal RN 09/08/2022 ROUGHER documented in this encounter Procedure Notes * Lena Haq NP - 09/08/2022 9:00 AM CSTAssociated Order(s): Ear cerumen removal Ear cerumen removal Date/Time: 09/08/2022 9:44 AM Performed by: Lena Haq NP Authorized by: Lena Haq NP Consent: Consent obtained: Verbal Consent given by: Patient Risks discussed: Bleeding and pain Alternatives discussed: No treatment, delayed treatment and alternative treatment [place] Protocol: Immediately prior to procedure, a time out was called: yes Patient identity confirmed: Verbally with patient Procedure details: Location: L ear and R ear Procedure type: irrigation Post-procedure details: Inspection: TM intact Hearing quality: Improved Patient tolerance of procedure: Patient tolerated the procedure well with no immediate complications ROUGHER documented in this encounter Plan of Treatment Not on file documented as of this encounter Procedures Procedure Name Priority Date/Time Associated Diagnosis Comments CMP12+LP+6AC (A1C) [facility] Routine 09/08/2022 9:56 AM WELT ROUGHER Wellness examination N/O HEMOGLOBIN A1C Routine 09/08/2022 9: 56 AM WELT ROUGHER VITAMIN D 25-HYDROXY - [facility] Routine 09/08/2022 9:56 AM WELT ROUGHER Wellness examination HEPATITIS C ANTIBODY Routine 09/08/2022 9:56 AM WELT ROUGHER Wellness examination CBC Routine 09/08/2022 9:56 AM WELT ROUGHER Wellness examination EAR CERUMEN REMOVAL Routine 09/08/2022 9 :44 AM WELT ROUGHER Bilateral impacted cerumen documented in this encounter Results * (ABNORMAL) Hgb A1C Hemoglobin Glycosylated (98606) (09/08/2022 9:56 AM WELT ROUGHER) Hemoglobin A1C 6.0(H) 4.8 - 5.6 % [facility] 1 Comment: ? Prediabetes: 5.7 - 6.4 ? Diabetes: >6.4 ? Glycemic control for adults with diabetes: <7.0 09/08/2022 9:56 AM WELT ROUGHER 09/08/2022 Comment:Blood, Venou Karma [facility] - 09/09/2022 10:07 AM WELT ROUGHER Performed at: ??01 - [facility] [address] ??[id number] Application Packager: Bo Rivera PhD, Phone: ??[phone] us Lena Haq INDUSTRIAL DIAMOND POLISHER LAB BLOOD ORDERABLES Final Res ult Performing Organization Address [facility]/ZIP Co de Phone Number [facility] * Hepatitis C antibody ([id number]) (09/08/2022 9:56 AM WELT ROUGHER) Hep C Virus Ab <0.1 0.0 - 0.9 s/co ratio [facility] 1 Comment: ?Negative: ? < 0.8 ? Indeterminate: 0.8 - 0.9 ?Positive: ? > 0.9 HCV antibody alone does not differentiate between previous resolved infection and active infection. The CDC and current clinical guidelines recommend that a positive HCV antibody result be followed up with an HCV RNA test to support the diagnosis of acute HCV infection. [facility] offers Hepatitis C Virus (HCV) RNA, Diagnosis, GRACIE (275869) and Hepatitis C Virus (HCV) Antibody with reflex to Quantitative Real-time PCR ([id number]). Blood (Blood, Venous) 09/08/2022 9:56 AM WELT ROUGHER 09/08/2022 Comment:Blood, Venou Narrative [facility] - 09/09/2022 6:07 AM WELT ROUGHER Performed at: ??01 - [facility] [address] ??[id number] Application Packager: Bo Rivera PhD, Phone: ??[phone] us Lena Haq INDUSTRIAL DIAMOND POLISHER LAB BLOOD ORDERABLES Final Res ult Performing Organization Address City/[facility] Co de Phone Number [facility] * (ABNORMAL) Vitamin D 25-Hydroxy - [facility] ([id number]) (09/08/2022 9:56 AM WELT ROUGHER) Vitamin D, 25-Hydroxy 14.2(L) 30.0 - 100.0 ng/mL [facility] 1 Comment: Vitamin D deficiency has been defined by the [place] of Medicine and an Endocrine Society practice guideline as a level of serum 25-OH vitamin D less than 20 ng/mL (1,2). The Endocrine Society went on to further define vitamin D insufficiency as a level between 21 and 29 ng/mL (2). 1. IOM ([place] of Medicine). 2010. Dietary reference ?? intakes for calcium and D. [place]: The ?? National [employer]utor [employer]. 2. Jun MF, Tera NC, Morgan CARPIO, et al. ?? Evaluation, treatment, and prevention of vitamin D ?? deficiency: an Endocrine Society clinical practice ?? guideline. JCEM. 2010; 96(7):1911-30. Blood (Blood, Venous) 09/08/2022 9:56 AM WELT ROUGHER 09/08/2022 Comment:Blood, Venou Narrative [facility] - 09/09/2022 5:06 AM WELT ROUGHER Performed at: ??01 - [facility] [address] ??[id number] Application Packager: Bo Rivera PhD, Phone: ??[phone] Lena Haq INDUSTRIAL DIAMOND POLISHER LAB BLOOD ORDERABLES Final Res ult [facility] * CBC Complete blood count without diff ([id number]) (09/08/2022 9:56 AM WELT ROUGHER) Auto WBC 6.8 3.4 - 10.8 x10E3/uL [facility] 1 RBC 5.12 4.14 - 5.80 x10E6/uL [facility] 1 Hemoglobin 15.9 13.0 - 17.7 g/dL [facility] 1 Hematocrit 48.1 37.5 - 51.0 % [facility] 1 MCV 94 79 - 97 fL [facility] 1 MCH 31.1 26.6 - 33.0 pg [facility] 1 MCHC 33.1 31.5 - 35.7 g/dL [facility] 1 RDW 12.5 11.6 - 15.4 % [facility] 1 Platelets 282 150 - 450 x10E3/uL [facility] 1 Blood (Blood, Venous) 09/08/2022 9:56 AM WELT ROUGHER 09/08/2022 Comment:Blood, Venou Narrative [facility] - 09/09/2022 4:06 AM WELT ROUGHER Performed at: ??01 - [facility] [address], [place], [place] ??[id number] Application Packager: Bo Rivera PhD, Phone: ??[phone] us Lena Haq NP LAB BLOOD ORDERABLES Final Res ult [facility] * (ABNORMAL) CMP12+LP+6AC(Glucose>100 Reflex A1c) ([id number]) - [facility] (09/08/2022 9:56 AM WELT ROUGHER) Glucose 116(H) 70 - 99 mg/dL [facility] 1 Uric Acid 6.0 3.8 - 8.4 mg/dL [facility] 1 Comment:Therapeutic target f or gout patients: <6.0 BUN 11 6 - 24 mg/dL [facility] 1 Creatinine 1.02 0.76 - 1.27 mg/dL [facility] 1 eGFR 88 >59 mL/min/1.7 3 [facility] 1 BUN/Creatinine Ratio 11 9 - 20 [facility] 1 Sodium 139 134 - 144 mmol/L [facility] 1 Potassium 4.1 3.5 - 5.2 mmol/L [facility] 1 Chloride 101 96 - 106 mmol/L [facility] 1 Calcium 9.0 8.7 - 10.2 mg/dL [facility] 1 Phosphorus 3.0 2.8 - 4.1 mg/dL [facility] 1 Total Protein 7.4 6.0 - 8.5 g/dL [facility] 1 Albumin 4.3 3.8 - 4.9 g/dL [facility] 1 Globulin, Total 3.1 1.5 - 4.5 g/dL [facility] 1 A/G Ratio 1.4 1.2 - 2.2 [facility] 1 Total Bilirubin 0.3 0.0 - 1.2 mg/dL [facility] 1 Alkaline Phosphatase 122(H) 44 - 121 IU/L [facility] LD 188 121 - 224 IU/L [facility] AST 17 0 - 40 IU/L [facility] ALT (SGPT) 24 0 - 44 IU/L [facility] GGT 30 0 - 65 IU/L [facility] Iron 55 38 - 169 ug/dL [facility] Cholesterol 203(H) 100 - 199 mg/dL [facility] 1 Triglycerides 339(H) 0 - 149 mg/dL [facility] 1 HDL 27(L) >39 mg/dL [facility] 1 VLDL Cholesterol Williams 59(H) 5 - 40 mg/dL [facility] LDL Calculated 117(H) 0 - 99 mg/dL [facility] 1 Chol/HDL Ratio 7.5(H) 0.0 - 5.0 ratio [facility] 1 Comment: ?T. Chol/HDL Ratio ?Men ??Women ?1/2 Avg.Risk ??3.4 ?3.3 ?Avg.Risk ??5.0 ?4.4 ? 2X Avg.Risk ??9.6 ?7.1 ? 3X Avg.Risk 23.4 ?? 11.0 Estimated CHD Risk 1.6(H) 0.0 - 1.0 times avg. [facility] Comment: The CHD Risk is based on the T. Chol/HDL ratio. Other factors affect CHD Risk such as hypertension, smoking, diabetes, severe obesity, and family history of premature CHD. Blood (Blood, Venous) 09/08/2022 9:56 AM WELT ROUGHER 09/08/2022 Comment:Blood, Venou Karma [facility] - 09/09/2022 10:07 AM WELT ROUGHER Performed at: ??01 - [facility] [address], [place], [place] ??[id number] Application Packager: Bo Rivera PhD, Phone: ??[phone] us Lena Haq NP LAB BLOOD ORDERABLES Final Res ult [facility] * Ear cerumen removal (09/08/2022 9:44 AM WELT ROUGHER) Narrative Lena Haq NP - 09/08/2022 9:44 AM WELT ROUGHER Lena Haq NP ? 09/08/2022 ??9:49 AM Ear cerumen removal Date/Time: 09/08/2022 9:44 AM Performed by: Lena Haq NP Authorized by: Lena Haq NP Consent: ??Consent obtained: ??Verbal ??Consent given by: ??Patient ??Risks discussed: ??Bleeding and pain ??Alternatives discussed: ??No treatment, delayed treatment and alternative treatment [place] Protocol: ??Immediately prior to procedure, a time out was called: yes ?Patient identity confirmed: ??Verbally with patient Procedure details: ??Location: ??L ear and R ear ??Procedure type: irrigation ?? Post-procedure details: ??Inspection: ??TM intact ??Hearing quality: ??Improved ??Patient tolerance of procedure: ??Patient tolerated the procedure well with no immediate complications Lena Haq INDUSTRIAL DIAMOND POLISHER IN CLINIC/BEDSIDE ORDERABLES F inal Result documented in this encounter Visit Diagnoses Diagnosis Wellness examination- Primary Hyperlipidemia, unspecified hyperlipidemia type Rheumatoid arthritis with positive rheumatoid factor, involving unspecified site (CMS/HCC) Chronic pain of both knees Essential (primary) hypertension Unspecified essential hypertension Obstructive sleep apnea (adult) (pediatric) Other forms of dyspnea Tobacco use Situational depression Severe obesity (BMI >= 40) (CMS/[facility]) BMI 40.0-44.9, adult (CMS/[facility]ER[facility]) Bilateral impacted cerumen Impacted cerumen documented in this encounter Care Teams Automatic Edger Relationship Specialty Start Date End Date Lena Haq NP [address] [place] [id number] PCP - General Family Medicine 01/25/22 07/31/24 documented as of this encounter
--- OUTSIDE RECORDS SUMMARY | 2024-09-22 23:37 | XMS_ITS | Encounter Summary ---
Author Organization [facility] Address [address] [place] [address]. [place], [place] [id number] [place] [address] Care Team Providers Care Softball Core Molder Name Role Phone Lena Haq Primary Care Provider [phone] Reason for Visit * Reason Onset Date Comments Consult 05/23/2024 Encounter Details Date Type Department Care Team ([facility] st Contact Info) Description 05/23/[address] [address] Susana Ríos RMA Consult Social History Tobacco Use Types Packs/Day Years Used Date Smoking Tobacco: Never Assessed Sex and Gender Information Value Date Recorded Sex Assigned at Not on file Legal Sex Male 5:29 PM CDT Gender Identity Not on file Sexual Orientation Not on file documented as of this encounter Progress Notes * NATALY Tucker - 05/23/2024 2:59 PM CDT Several attempts made to contact patient by phone and by letter with no response. Will send no contact letter to ordering to make aware and will return patient care back to their office. documented in this encounter Plan of Treatment Not on file documented as of this encounter Visit Diagnoses Not on filedocumented in this encounter Care Teams Softball Core Molder Relationship Specialty Start Date End Date Lena Haq FNP [address] [place], [place] [address] PCP - General NURSE PRACTITIONER 03/22/24 documented as of this encounter
--- OUTSIDE RECORDS SUMMARY | 2024-09-22 23:37 | XMS_ITS | Clinical Summary ---
Author Organization [facility] Address [address] [place] [address]. [place], [place] [id number] [place] [address] Care Team Providers Care Rent Collector Name Role Phone Lena Haq Primary Care Provider [phone] Social History Tobacco Use Types Packs/Day Years Used Date Smoking Tobacco: Never Assessed Sex and Gender Information Value Date Recorded Sex Assigned at Not on file Legal Sex Male 5:29 PM CDT Gender Identity Not on file Sexual Orientation Not on file Plan of Treatment Health Maintenance Due Date Last Done Comments Colorectal Cancer Screening Colonoscopy (10 Years) 1969 Annual Physical 02/12/1972 Hepatitis C 1987 DTaP, Tdap and Td Vaccines ( 1 - Tdap) 02/12/1988 Hepatitis B Vaccines (1 of 3 - 19+ 3-dose series) 02/12/1988 Zoster Vaccines (1 of 2) 2019 COVID-19 Vaccine ( - 2023-2 5 season) 2024 Influenza Adult (#1) 2024 Meningococcal Vaccine Aged Out No myrna andrea eligible based on patient's age to complete this topic Pneumococcal Vaccine: Pediat rics (0 to 5 Years) and At-Risk Patients (6 to 64 Years) Aged Out No longer eligible b ased on patient's age to complete this topic RSV Immunizations Under 20 Months Aged Out No longer eligible based on patient's age to complete this topic Care Teams Rent Collector Relationship Specialty Start Date End Date Lena Haq FNP [address] [place] [address] PCP - General NURSE PRACTITIONER 03/22/24
--- OUTSIDE RECORDS SUMMARY | 2024-09-22 23:37 | XMS_ITS | Encounter Summary ---
Author Organization [facility] Address [address] [place] [address] Phone [email or web address] Care Team Providers Care Patternmaker Pressure Cast Name Role Phone Lena Haq CHILD DEVELOPMENT PROFESSOR Primary Care Provider [phone] Reason for Visit * Reason Comments Chronic Condition-multiple Follow-up Encounter Details Date Type Department Care Team (Latest Contact Info) Description 01/25/2022 3:00 PM CDT Office Visit [facility] [address] [place] [address] Lena Haq NP [address] [place] [address] Essential (primary) hypertension (Primary Dx); Hyperlipidemia, unspecified hyperlipidemia type; Rheumatoid arthritis with positive rheumatoid factor, involving unspecified site (CMS/HCC); Situational depression; Chronic pain of both knees Social History Tobacco Use Types Packs/Day Years [...] Date Recorded Alcohol Use Status Yes 10/07/2021 Sex and Gender Information Value Date Recorded Sex Assigned at Male 10/01/2021 1:36 PM ROUGHER OPERATOR Legal Sex Male 10:47 AM CDT Gender Identity Male 10/01/2021 1:36 PM ROUGHER OPERATOR Sexual Orientation Not on file COVID-19 Exposure Response Date Recorded In the last 10 days, have yo u been in contact with someone who was confirmed or suspected to have Coronavirus/COVID-19? No / Unsure 01/25/2022 2:58 PM CDT documented as of this encounter Last Filed Vital Signs Vital Sign Reading Time Taken Comments Blood Pressure 154/98 01/25/2022 3:01 PM CDT Pulse 86 01/25/2022 3:01 PM CDT Temperature 36.8 ??C (98.3 ??F) 01/25/2022 3:01 PM CD T Respiratory Rate 18 01/25/2022 3:01 PM CDT Oxygen Saturation 99% 01/25/2022 3:01 PM CDT Inhaled Oxygen Concentration - - Weight 168 kg (370 lb) 01/25/2022 3:01 PM CDT Height - - Body Mass Index 41.68 10/07/2021 12:16 PM ROUGHER OPERATOR documented in this encounter Patient Instructions * Patient Instructions* Lena Haq NP - 01/25/2022 3:00 PM CDT Images from the original note were not included. Patient Education Recovering From Depression: Care Instructions Your Care Instructions Taking good care of yourself is important as you recover from depression. In time, your symptoms will fade as your treatment takes hold. Do not give up. Instead, focus your energy on getting better. Your mood will improve. It just takes some time. Focus on things that can help you feel better, such as being with friends and family, eating well, and getting enough rest. But take things slowly. Donot do too much too soon. You will begin to feel better gradually. Follow-up care is a davidson part of your treatment and safety. Be sure to make and go to all appointments, and call your doctor if you are having problems. It's also a good idea to know your test resultsand keep a list of the medicines you take. How can you care for yourself at home? Be realistic ?? If you have a large task to do, break it up into smaller steps you can handle, and just do what you can. ?? You may want to put off important decisions until your depression has lifted. If you have plans that will have a major impact on your life, such as marriage, divorce, or a job change, try to wait a bit. Talk it over with friends and loved ones who can help you look at the overall picture first. ?? Reaching out to people for help is important. Do not isolate yourself. Let your family and friends help you. Find someone you can trust and confide in, and talk to that person. ?? Be patient, and be kind to yourself. Remember that depression is not your fault and is not something you can overcome with willpower alone. Treatment is necessary for depression, just like for anyother illness. Feeling better takes time, and your mood will improve little by little. Stay active ?? Stay busy and get outside. Take a walk, or try some other light exercise. ?? Talk with your doctor about an exercise program. Exercise can help with mild depression. ?? Go to a movie or concert. Take part in a anabaptist activity or other social gathering. Go to a [employer]. ?? Ask a friend to have dinner with you. Take care of yourself ?? Eat a balanced diet with plenty of fresh fruits and vegetables, whole grains, and lean protein. If you have lost your appetite, eat small snacks rather than large meals. ?? Avoid drinking alcohol or using illegal drugs. Do not take medicines that have not been prescribed for you. They may interfere with medicines you may be taking for depression, or they may make your depression worse. ?? Take your medicines exactly as they are prescribed. You may start to feel better within 1 to 3 weeks of taking antidepressant medicine. But it can take as many as 6 to 8 weeks to see more improvement. If you have questions or concerns about your medicines, or if you do not notice any improvementby 3 weeks, talk to your doctor. ?? If you have any side effects from your medicine, tell your doctor. Antidepressants can make you feel tired, dizzy, or nervous. Some people have dry mouth, constipation, headaches, sexual problems,or diarrhea. Many of these side effects are mild and will go away on their own after you have been taking the medicine for a few weeks. Some may last longer. Talk to your doctor if side effects are bothering you too much. You might be able to try a different medicine. ?? Get enough sleep. If you have problems sleeping: ? Go to bed at the same time every night, and get up at the same time every morning. ? Keep your bedroom dark and quiet. ? Do not exercise after 5:00 p.m. ? Avoid drinks with caffeine after 5:00 p.m. ?? Avoid sleeping pills unless they are prescribed by the doctor treating your depression. Sleepingpills may make you groggy during the day, and they may interact with other medicine you are taking. ?? If you have any other illnesses, such as diabetes, heart disease, or high blood pressure, make sure to continue with your treatment. Tell your doctor about all of the medicines you take, includingthose with or without a prescription. ?? Keep the numbers for these national suicide hotlines: 2-664-960-TALK ( ) and 0-598-QMIHPQG ( ). If you or someone you know talks about suicide or feeling hopeless, get help right away. When should you call for help? Call 911 anytime you think you may need emergency care. For example, call if: ? You feel like hurting yourself or someone else. ? Someone you know has depression and is about to attempt or is attempting suicide. ??Call your doctor now or seek immediate medical care if: ? You hear voices. ? Someone you know has depression and: ? Starts to give away his or her possessions. ? Uses illegal drugs or drinks alcohol heavily. ? Talks or writes about , including writing suicide notes or talking about guns, knives, or pills. ? Starts to spend a lot of time alone. ? Acts very aggressively or suddenly appears calm. ??Watch closely for changes in your health, and be sure to contact your doctor if: ? You do not get better as expected. Where can you learn more? Go to https://www.[facility].[employer] Enter N529 in the search box to learn more about Recovering From Depression: Care Instructions. Current as of: February 19, 2019Content Version: 12.4 ?? [employer]. Care instructions adapted under license by your healthcare professional. If you have questions about a medical condition or this instruction, always ask your healthcare professional. [employer] disclaims any warranty or liability for your use of this information. documented in this encounter Progress Notes * Lena Haq NP - 01/25/2022 3:00 PM CDT Subjective: Ronnie Tadeo is a 51 y.o. male. Chief Complaint: Chief Complaint Patient presents with ??? Chronic Condition-multiple Follow-up History Reviewed: The following portions of the patient's chart were reviewed in this encounter and updated as appropriate: Tobacco Allergies Meds Here for med refills. Takes meds as prescribed. Knees have been bothering him. Asking about anothercortisone injection. Has appt with ortho in 2 weeks. Recently had 12 teeth pulled and is waiting ondentures. Recently found out his father has brain cancer and his biological mother has bone cancer.His grief from his son passing still weighs heavy on him. Has not seen a counsleor but has thought about it. Does not want any medication. Does not sleep well. Chronic Condition-multiple Follow-up Pertinent negatives include no chest pain or shortness of breath. Review of Systems Constitutional: Negative. Negative for chills, fatigue and fever. Respiratory: Negative for shortness of breath. Cardiovascular: Negative for chest pain. Gastrointestinal: Negative for diarrhea, nausea and vomiting. Musculoskeletal: Positive for arthralgias (knees). Neurological: Negative for dizziness. Visit Vitals BP (!) 154/98 Pulse 86 Temp 98.3 ??F Resp 18 Wt (!) 370 lb SpO2 99% BMI 41.68 kg/m?? Smoking Status Heavy Tobacco Smoker BSA 3.06 m?? Patient Active Problem List Diagnosis ??? Obstructive sleep apnea (adult) (pediatric) ??? Rheumatoid arthritis, unspecified (CMS/HCC) ??? Other forms of dyspnea ??? Vitamin D deficiency, unspecified ??? Obesity, unspecified ??? Hyperlipidemia, unspecified ??? Essential (primary) hypertension ??? Tobacco use ??? Acute sialoadenitis ??? Localized swelling, mass and lump, neck Current Outpatient Medications on File Prior to Visit Medication Sig Dispense Refill ??? cholecalciferol (VITAMIN D-3) 1.25 MG (14542 UT) capsule Take 1 capsule (50,000 Units total) bymouth 1 (one) time per week. 12 capsule 0 ??? fluticasone-salmeterol (ADVAIR DISKUS) 250-50 MCG/DOSE diskus inhaler Inhale 1 puff 2 (two) times a day. Rinse mouth with water after use to reduce aftertaste and incidence of candidiasis. Do notswallow. ??? [DISCONTINUED] acetaminophen-codeine (TYLENOL #3) 300-30 MG per tablet ??? [DISCONTINUED] atorvastatin (LIPITOR) 40 MG tablet Take 1 tablet (40 mg total) by mouth 1 (one)time each day. 90 tablet 0 ??? [DISCONTINUED] diclofenac (VOLTAREN) 75 MG EC tablet Take 1 tablet (75 mg total) by mouth 2 (two) times a day. Do not crush, chew, or split. 100 tablet 0 ??? [DISCONTINUED] lisinopril (ZESTRIL) 10 MG tablet Take 1 tablet (10 mg total) by mouth 1 (one) time each day. 90 tablet 0 No current facility-administered medications on file prior to visit. No past medical history on file. Past Surgical History: Procedure Laterality Date ??? ARTHROSCOPIC REPAIR ACL Right ??? KNEE ARTHROSCOPY Bilateral No family history on file. Social History Tobacco Use ??? Smoking status: Heavy Tobacco Smoker Packs/day: 1.50 Types: Cigarettes ??? Smokeless tobacco: Never Used ??? Tobacco comment: Smoking History Packs/day: 6 cigarettes Substance Use [...] oriented to person, place, and time. Psychiatric: Attention and Perception: Attention normal. Mood and Affect: Mood is depressed. Speech: Speech normal. Behavior: Behavior normal. Thought Content: Thought content does not include homicidal or suicidal ideation. Thought content does not include homicidal or suicidal plan. Cognition and Memory: Cognition normal. Assessment/Plan: Diagnoses and all orders for this visit: Essential (primary) hypertension - lisinopril (ZESTRIL) 30 MG tablet; Take 1 tablet (30 mg total) by mouth 1 (one) time each day. Hyperlipidemia, unspecified hyperlipidemia type - atorvastatin (LIPITOR) 40 MG tablet; Take 1 tablet (40 mg total) by mouth 1 (one) time each day. Rheumatoid arthritis with positive rheumatoid factor, involving unspecified site (CMS/HCC) - diclofenac (VOLTAREN) 75 MG EC tablet; Take 1 tablet (75 mg total) by mouth 2 (two) times a day. Do not crush, chew, or split. Situational depression Chronic pain of both knees - diclofenac (VOLTAREN) 75 MG EC tablet; Take 1 tablet (75 mg total) by mouth 2 (two) times a day. Do not crush, chew, or split. Will double up on his lisinopril at home (20 mg total) until finished then start the 30 mg tabs taht were dispensed today. Again declines medication for his depression. Incrase diclofenac to BID dosing. No injection in knees today as he has appt with ortho in 2 weeks. Meds dispensed. Take as prescribed. Patient was counseled on medication risk, side effects, and possible complications. Patient was counseled on how to properly take the medication and to call with any adverse reactions. Patient stated understanding. Stay active. Watch diet. Follow up prn. documented in this encounter Plan of Treatment Not on file documented as of this encounter Visit Diagnoses Diagnosis Essential (primary) hypertension- Primary Unspecified essential hypertension Hyperlipidemia, unspecified hyperlipidemia type Rheumatoid arthritis with positive rheumatoid factor, involving unspecified site (CMS/HCC) Situational depression Chronic pain of both knees documented in this encounter Care Teams Patternmaker Pressure Cast Relationship Specialty Start Date End Date Lena Haq NP [address] [place] [address] PCP - General Family Medicine 01/25/22 07/31/24 documented as of this encounter
--- OUTSIDE RECORDS SUMMARY | 2024-09-22 23:37 | XMS_ITS | Encounter Summary ---
Author Organization [facility] Address [address] [place] [address]. [place], [place] [address] [place] [address] Care Team Providers Care Hand Thermal Cutter Name Role Phone Vincenzo Salazar MD Primary Care Provider [phone] Jerome Finch MD Primary Care Provider Unavailable Jerome Finch MD Primary Care Provider Unavailable Encounter Details Date Type Department Care Team (Late st Contact Info) Description 02/05/1996 Abstract [place] [address] Jerome Finch MD Social History Tobacco Use Types Packs/Day Years [...] on filedocumented in this encounter Care Teams Hand Thermal Cutter Relationship Specialty Start Date End Date Vincenzo Salazar MD [address] [facility] [address] [place] [address] PCP - General 07/10/13 03/21/24 Jerome Finch MD PCP - General 10/07/1107/09 Jerome Finch MD PCP - General 09/30/11 documented as of this encounter
--- OUTSIDE RECORDS SUMMARY | 2024-09-22 23:37 | XMS_ITS | Encounter Summary ---
Author Organization [facility] Address [address] [place] [address] Phone [email or web address] Care Team Providers Care Cigarette Tester Name Role Phone Lena Hqa LEAD MACHINIST Primary Care Provider [phone] Reason for Visit * Reason Onset Date Comments Med Refill 12/15/2022 Encounter Details Date Type Department Care Team (Late st Contact Info) Description 12/15/[address] [address] Lena Haq NP [address] [place] [address] Hyperlipidemia, unspecified hyperlipidemia type; Rheumatoid arthritis with positive rheumatoid factor, involving unspecified site (CMS/HCC); Chronic pain of both knees; Essential (primary) hypertension Social History Tobacco Use [...] Sex Assigned at Male 10/01/2021 1:36 PM MECHANICAL SERVICE TECHNICIAN Legal Sex Male 10:47 AM CDT Gender Identity Male 10/01/2021 1:36 PM MECHANICAL SERVICE TECHNICIAN Sexual Orientation Not on file documented as of this encounter Plan of Treatment Not on file documented as of this encounter Visit Diagnoses Diagnosis Hyperlipidemia, unspecified hyperlipidemia type Rheumatoid arthritis with positive rheumatoid factor, involving unspecified site (CMS/HCC) Chronic pain of both knees Essential (primary) hypertension Unspecified essential hypertension documented in this encounter Care Teams Cigarette Tester Relationship Specialty Start Date End Date Lena Haq NP [address] [place] [address] PCP - General Family Medicine 01/25/22 07/31/24 documented as of this encounter
--- OUTSIDE RECORDS SUMMARY | 2024-09-22 23:37 | XMS_ITS | Encounter Summary ---
Author Organization [facility] Address [address] [place] [address] Phone [email or web address] Care Team Providers Care Community Health Counselor Name Role Phone Unavailable Primary Care Provider Unavailabl e Encounter Details Date Type Department Care Team (Latest Contact Info) Description 10/07/2021 Travel Social History Tobacco Use Types Packs/Day Years [...] Sex Assigned at Male 10/01/2021 1:36 PM PUTAWAY DRIVER Legal Sex Male 10:47 AM CDT Gender Identity Male 10/01/2021 1:36 PM PUTAWAY DRIVER Sexual Orientation Not on file COVID-19 Exposure Response Date Recorded In the last month, have you been in contact with someone who was confirmed or suspected to have Coronavirus / COVID-19? No / Unsure 10/07/2021 12:09 PM PUTAWAY DRIVER documented as of this encounter Plan of Treatment Not on file documented as of this encounter Visit Diagnoses Not on filedocumented in this encounter
--- OUTSIDE RECORDS SUMMARY | 2024-09-22 23:37 | XMS_ITS | Encounter Summary ---
Author Organization [facility] Address [address] [place] [address] Phone [email or web address] Care Team Providers Care Commercial Litigation Associate Name Role Phone Lena Haq NP Primary Care Provider Reason for Visit * Reason Comments Elevated Readings Encounter Details Date Type Department Care Team (Latest Contact Info) Description 09/27/2023 3:00 PM CUTTING MACHINE OPERATOR HELPER Office Visit [facility] [address] [place] [address] Lena Haq NP [address] [place] [address] Wellness examination (Primary Dx); Severe obesity (BMI >= 40) (CMS/HCC); BMI 40.0-44.9, adult (CMS/[facility]); Tobacco abuse counseling; Tobacco use; Essential (primary) hypertension; Hyperlipidemia, unspecified hyperlipidemia type; Rheumatoid arthritis with positive rheumatoid factor, involving unspecified site (CMS/[facility]); Chronic pain of both knees; Pain of right sacroiliac joint; Wheezing; Obstructive sleep apnea (adult) (pediatric); Class 3 severe obesity due to excess calories with serious comorbidity and body mass index (BMI) of 40.0 to 44.9 in adult (CMS/HCC); Plantar fasciitis, left; Medication refill Social History Tobacco Use Types [...] Answer Date Recorded PHQ Total Score 0 09/27/2023 Sex and Gender Information Value Date Recorded Sex Assigned at Male 10/01/2021 1:36 PM CUTTING MACHINE OPERATOR HELPER Legal Sex Male 10:47 AM CDT Gender Identity Male 10/01/2021 1:36 PM CUTTING MACHINE OPERATOR HELPER Sexual Orientation Not on file documented as of this encounter Last Filed Vital Signs Vital Sign Reading Time Taken Comments Blood Pressure 166/84 09/27/2023 3:01 PM CUTTING MACHINE OPERATOR HELPER Pulse 82 09/27/2023 3:01 PM CUTTING MACHINE OPERATOR HELPER Temperature 36.8 ??C (98.2 ??F) 09/27/2023 3:01 PM CS T Respiratory Rate 20 09/27/2023 3:01 PM CUTTING MACHINE OPERATOR HELPER Oxygen Saturation 97% 09/27/2023 3:01 PM CUTTING MACHINE OPERATOR HELPER Inhaled Oxygen Concentration - - Weight 171 kg (376 lb 6.4 oz) 09/27/2023 3:01 PM CUTTING MACHINE OPERATOR HELPER Height 200.7 cm (6' 7 ) 09/27/2023 3:01 PM CUTTING MACHINE OPERATOR HELPER Body Mass Index 42.4 09/27/2023 3:01 PM CUTTING MACHINE OPERATOR HELPER documented in this encounter Patient Instructions * Attachments The following attachments cannot be sent through Care Everywhere. * Healthy Weight: General Info (Haitian) * Diet: DASH (Haitian) * Well Visit: 50 to 65 Year Men (Haitian) documented in this encounter Progress Notes * Lena Haq NP - 09/27/2023 3:00 PM CST Subjective: Ronnie Tadeo is a 53 y.o. male. Chief Complaint: Chief Complaint Patient presents with Elevated Readings History Reviewed: The following portions of the patient's chart were reviewed in this encounter and updated as appropriate: Tobacco Allergies Meds Problems Med Hx Surg Hx Fam Hx Annual exam. Has some anxiety/depression but handling it well. Denies nocturia, weak stream, dribbling. Right leg pain x 3 days. Feels weak. Pain from right buttock to knee. Was out of town and in a car for 26 hours straight last week. No swelling, redness, or warmth. Forgot to take his meds today.Was at the dentist last week and thinks his BP was 140/90. Denies cp/sob/dizziness. General Associated symptoms include coughing (chronic). Pertinent negatives include no chest pain, chills, fatigue, fever, nausea or vomiting. Review of Systems Constitutional: Negative. Negative for chills, fatigue and fever. Respiratory: Positive for cough (chronic) and wheezing (chronic). Negative for shortness of breath. Cardiovascular: Negative for chest pain. Gastrointestinal: Negative for diarrhea, nausea and vomiting. Musculoskeletal: Positive for back pain. Neurological: Negative for dizziness. Psychiatric/Behavioral: Negative for sleep disturbance and suicidal ideas. Visit Vitals BP (!) 166/84 Pulse 82 Temp 98.2 ??F Resp 20 Ht 6' 7 Wt (!) 376 lb 6.4 oz SpO2 97% BMI 42.40 kg/m?? Smoking Status Heavy Smoker BSA 3.09 m?? Current Outpatient Medications: aspirin (ST SHIRA) 81 MG EC tablet, Take 81 mg by mouth 1 (one) time each day., Disp: , Rfl: amLODIPine (NORVASC) 5 MG tablet, Take 1 tablet (5 mg total) by mouth 1 (one) time each day., Disp:90 tablet, Rfl: 0 atorvastatin (LIPITOR) 40 MG tablet, Take 1 tablet (40 mg total) by mouth 1 (one) time each day., Disp: 90 tablet, Rfl: 0 diclofenac (VOLTAREN) 75 MG EC tablet, Take 1 tablet (75 mg total) by mouth in the morning and 1 tablet (75 mg total) in the evening. Do not crush, chew, or split. ., Disp: 200 tablet, Rfl: 3 ergocalciferol (VITAMIN D-2) 1.25 MG (34109 UT) capsule, Take 50,000 Units by mouth 1 (one) time per week. (Patient not taking: Reported on 09/27/2023), Disp: , Rfl: lisinopril (ZESTRIL) 40 MG tablet, Take 1 tablet (40 mg total) by mouth 1 (one) time each day., Disp: 90 tablet, Rfl: 1 predniSONE (DELTASONE) 10 MG tablet, Take 5 tablets (50 mg total) by mouth 1 (one) time each day for 5 days. Dispose of unused pills, Disp: 30 tablet, Rfl: 0 Patient Active Problem List [...] Normal appearance. He is obese. HENT: Head: Normocephalic and atraumatic. Nose: Nose normal. Mouth/Throat: Mouth: Mucous membranes are moist. Pharynx: Oropharynx is clear. Eyes: Conjunctiva/sclera: Conjunctivae normal. Cardiovascular: Rate and Rhythm: Normal rate and regular rhythm. Pulses: Normal pulses. Pulmonary: Effort: Pulmonary effort is normal. Breath sounds: Wheezing (scattered) present. Abdominal: General: Abdomen is flat. Bowel sounds are normal. Palpations: Abdomen is soft. Musculoskeletal: Cervical back: Normal range of motion. Right lower leg: No edema. Left lower leg: No edema. Lymphadenopathy: Cervical: No cervical adenopathy. Skin: General: Skin is warm and dry. Neurological: General: No focal deficit present. Mental Status: He is alert and oriented to person, place, and time. Psychiatric: Mood and Affect: Mood normal. Behavior: Behavior normal. Assessment/Plan: Jas was seen today for elevated readings. Diagnoses and all orders for this visit: Wellness examination (Primary) - CMP12+LP+6AC (285735) - [facility] - Hgb A1C Hemoglobin Glycosylated (32677) Severe obesity (BMI >= 40) ([facility]) BMI 40.0-44.9, adult ([facility]) Tobacco abuse counseling Tobacco use Assessment & Plan: Encouraged to quit smoking - he is not interested Orders: - CT Low Dose Lung Cancer Screening CPT 03896; Future Essential (primary) hypertension Assessment & Plan: Pt [...] Will try to take his meds daily Orders: - amLODIPine (NORVASC) 5 MG tablet; [...] before you use any other medicines, including [id number]. Make sure your doctor knows all of the medicines, vitamins, herbal products, and supplements you take. Taking some medicines together can cause problems. Check labs today Continue med Orders: - atorvastatin (LIPITOR) 40 MG tablet; Take 1 tablet (40 mg total) by mouth 1 (one) time each day. Rheumatoid arthritis with positive rheumatoid factor, involving unspecified site ([facility]) Assessment & Plan: Uses diclofenac [...] Do not crush, chew, or split. . Pain of right sacroiliac joint - predniSONE (DELTASONE) 10 MG tablet; Take 5 tablets (50 mg total) by mouth 1 (one) time each day for 5 days. Dispose of unused pills Wheezing Obstructive sleep apnea (adult) (pediatric) Class 3 severe obesity due to excess calories with serious comorbidity and body mass index (BMI) of40.0 to 44.9 in adult ([facility]) Assessment & Plan: Pt has an elevated BMI over 30 Body mass index is BMI Readings from Last 1 Encounters: 09/27/23 42.40 kg/m?? and you will need to work hard on reducing carbohydrates and total calories. You may use the free smart phone [employer] to help track calories and try to reduce by 15%every 4 weeks. You should also work on reducing your total portion sizes. You should be exercising about 30 minutes every day with cardio work outs. You should strive to avoid regular soda, juices and alcohol. Plantar fasciitis, left Assessment & Plan: Has been following with podiatry Doing much better after injections and orthotics Medication refill Assessment & Plan: Meds dispensed. Take as prescribed. Patient was counseled on medication risk, side effects, and possible complications. Patient was counseled on how to properly take the medication and to call with any adverse reactions. Patient stated understanding. Stay active. Watch diet. Follow up prn. Prednisone for back pain. Stretching encouraged. Follow up if no improvement or worsening. History reviewed and updated. Screenings up to date/ordered. Need to work on diet and exercise to facilitate weight loss. Take meds as prescribed. Make healthy dietary choices. Check labs today and will call with results. Lena Haq NPBe Practice Advisory Action: BMI Counseling Follow-up plan has been discussed and documented for this member. ING MACHINE OPERATOR HELPER * Merced Leal RN - 09/27/2023 3:00 PM CST Ronnie Tadeo is a 53 y.o. male presents to the [facility] 09/27/2023 for Non- Fasting lab work ordered by Health Center provider . Labs drawn via left antecubital using straight-stick 22 gauge needle on the first attempt without difficulty. Manual pressure applied to site upon completion of venipuncture without any bleeding, Band-aid applied over site. Patient tolerated lab procedure well: Yes. Merced Leal RN 09/27/2023 ING MACHINE OPERATOR HELPER documented in this encounter Miscellaneous Notes * Assessment & Plan Note - Lena Haq NP - 09/27/2023 3:45 PM CSTAssociated Problem(s): Plantar fasciitis, left Has been following with podiatry Doing much better after injections and orthotics ING MACHINE OPERATOR HELPER * Assessment & Plan Note - Lena Haq NP - 09/27/2023 3:44 PM CSTAssociated Problem(s): Obesity, unspecified Pt has an elevated BMI over 30 Body mass index is BMI Readings from Last 1 Encounters: 09/27/23 42.40 kg/m?? and you will need to work hard on reducing carbohydrates and total calories. You may use the free smart phone [employer] to help track calories and try to reduce by 15%every 4 weeks. You should also work on reducing your total portion sizes. You should be exercising about 30 minutes every day with cardio work outs. You should strive to avoid regular soda, juices and alcohol. ING MACHINE OPERATOR HELPER * Assessment & Plan Note - Lena Haq NP - 09/27/2023 3:43 PM CSTAssociated Problem(s): Medication refill Meds dispensed. Take as prescribed. Patient was counseled on medication risk, side effects, and possible complications. Patient was counseled on how to properly take the medication and to call with any adverse reactions. Patient stated understanding. Stay active. Watch diet. Follow up prn. ING MACHINE OPERATOR HELPER * Assessment & Plan Note - Lena Haq NP - 09/27/2023 3:43 PM CSTAssociated Problem(s): Tobacco use Encouraged to quit smoking - he is not interested ING MACHINE OPERATOR HELPER * Assessment & Plan Note - Lena Haq NP - 09/27/2023 3:43 PM CSTAssociated Problem(s): Essential (primary) hypertension Pt has h/o [...] Will try to take his meds daily ING MACHINE OPERATOR HELPER * Assessment & Plan Note - Lena Haq NP - 09/27/2023 3:42 PM CSTAssociated Problem(s): Hyperlipidemia Eat heart-healthy foods. Eat fruits, [...] before you use any other medicines, including [id number]. Make sure your doctor knows all of the medicines, vitamins, herbal products, and supplements you take. Taking some medicines together can cause problems. Check labs today Continue med ING MACHINE OPERATOR HELPER * Assessment & Plan Note - Lena Haq NP - 09/27/2023 3:42 PM CSTAssociated Problem(s): Rheumatoid arthritis, unspecified ([facility]) Uses diclofenac daily. Declines further treatment/referral ING MACHINE OPERATOR HELPER documented in this encounter Plan of Treatment Not on file documented as of this encounter Procedures Procedure Name Priority Date/Time Associated Diagnosis Comments CMP12+LP+6AC - [facility] Routine 09/27/2023 3:53 PM CUTTING MACHINE OPERATOR HELPER Wellness examination HEMOGLOBIN A1C Routine 09/27/2023 3:53 PM CUTTING MACHINE OPERATOR HELPER Wellness examination documented in this encounter Results * (ABNORMAL) Hgb A1C Hemoglobin Glycosylated (61939) (09/27/2023 3:53 PM CUTTING MACHINE OPERATOR HELPER) Hemoglobin A1C 6.3(H) 4.8 - 5.6 % [facility] 1 Comment: ? Prediabetes: 5.7 - 6.4 ? Diabetes: >6.4 ? Glycemic control for adults with diabetes: <7.0 Blood (Blood, Venous) 09/27/2023 3:53 PM CUTTING MACHINE OPERATOR HELPER 09/27/2023 Comment:Blood, Venou Narrative [facility] - 09/28/2023 7:06 AM CUTTING MACHINE OPERATOR HELPER Performed at: ??01 - [facility] [address] ??[id number] Caddy/Caddie Supervisor: Bo Rivera PhD, Phone: ??[phone] us Lena Haq MEDICAL LANGUAGE SPECIALIST LAB BLOOD ORDERABLES Final Res ult [facility] * (ABNORMAL) CMP12+LP+6AC ([id number]) - [facility] (09/27/2023 3:53 PM CUTTING MACHINE OPERATOR HELPER) Glucose 96 70 - 99 mg/dL [facility] 1 Uric Acid 4.8 3.8 - 8.4 mg/dL [facility] 1 Comment:Therapeutic target f or gout patients: <6.0 BUN 16 6 - 24 mg/dL [facility] 1 Creatinine 0.79 0.76 - 1.27 mg/dL [facility] 1 eGFR 106 >59 mL/min/1. 73 [facility] 1 BUN/Creatinine Ratio 20 9 - 20 [facility] 1 Sodium 139 134 - 144 mmol/L [facility] 1 Potassium 4.6 3.5 - 5.2 mmol/L [facility] 1 Chloride 100 96 - 106 mmol/L [facility] 1 Calcium 9.5 8.7 - 10.2 mg/dL [facility] 1 Phosphorus 3.5 2.8 - 4.1 mg/dL [facility] 1 Total Protein 7.3 6.0 - 8.5 g/dL [facility] 1 Albumin 4.4 3.8 - 4.9 g/dL [facility] 1 Globulin, Total 2.9 1.5 - 4.5 g/dL [facility] 1 A/G Ratio 1.5 1.2 - 2.2 [facility] 1 Total Bilirubin 0.2 0.0 - 1.2 mg/dL [facility] 1 Alkaline Phosphatase 107 44 - 121 IU/L [facility] 1 LD 187 121 - 224 IU/L [facility] 1 Comment: Specimen received hemolyzed. Value may be increased by hemolysis. Clinical correlation indicated. AST 16 0 - 40 IU/L [facility] 1 ALT (SGPT) 21 0 - 44 IU/L [facility] 1 GGT 28 0 - 65 IU/L [facility] 1 Iron 53 38 - 169 ug/dL [facility] 1 Cholesterol 248(H) 100 - 199 mg/dL [facility] 1 Triglycerides 740(HH) 0 - 149 mg/dL [facility] 1 HDL 31(L) >39 mg/dL [facility] 1 VLDL Cholesterol Williams 124(H) 5 - 40 mg/dL [facility] 1 LDL Calculated 93 0 - 99 mg/dL [facility] 1 Chol/HDL Ratio 8.0(H) 0.0 - 5.0 ratio [facility] 1 Comment: [...] history of premature CHD. Blood (Blood, Venous) 09/27/2023 3:53 PM CUTTING MACHINE OPERATOR HELPER 09/27/2023 Comment:Blood, Venou Narrative [facility] - 09/28/2023 12:07 PM CUTTING MACHINE OPERATOR HELPER Performed at: ??01 - [facility] [address] ??[id number] Caddy/Caddie Supervisor: Bo Rivera PhD, Phone: ??[phone] us Lena Haq MEDICAL LANGUAGE SPECIALIST LAB BLOOD ORDERABLES Final Res ult Performing Organization Address City/State/[facility] Co de Phone Number [facility] - [facility] 1 documented in this encounter Visit Diagnoses Diagnosis Wellness examination- Primary Severe obesity (BMI >= 40) ([facility]) BMI 40.0-44.9, adult ([facility]) Tobacco abuse counseling Tobacco use Essential (primary) hypertension Unspecified essential hypertension Hyperlipidemia, unspecified hyperlipidemia type Rheumatoid arthritis with positive rheumatoid factor, involving unspecified site ([facility]) Chronic pain of both knees Pain of right sacroiliac joint Wheezing Obstructive sleep apnea (adult) (pediatric) Class 3 severe obesity due to excess calories with serious comorbidity and body mass index (BMI) of 40.0 to 44.9 in adult ([facility]) Plantar fasciitis, left Medication refill Issue of repeat prescriptions documented in this encounter Care Teams Commercial Litigation Associate Relationship Specialty Start Date End Date Lena Haq NP [address] [place] [address] PCP - General Family Medicine 01/25/22 07/31/24 documented as of this encounter
--- OUTSIDE RECORDS SUMMARY | 2024-09-22 23:37 | XMS_ITS | Encounter Summary ---
Author Organization [facility] Address [address] [place] [address] Phone [email or web address] Care Team Providers Care Service Coordinator Name Role Phone Lena Haq NP Primary Care Provider [phone] Encounter Details Date Type Department Care Team (Latest Contact Info) Description 01/25/2022 Travel Social History Tobacco Use Types Packs/Day [...] Sex Assigned at Male 10/01/2021 1:36 PM CRT Legal Sex Male 10:47 AM CDT Gender Identity Male 10/01/2021 1:36 PM CRT Sexual Orientation Not on file COVID-19 Exposure Response Date Recorded In the last 10 days, have yo u been in contact with someone who was confirmed or suspected to have Coronavirus/COVID-19? No / Unsure 01/25/2022 2:58 PM CDT documented as of this encounter Plan of Treatment Not on file documented as of this encounter Visit Diagnoses Not on filedocumented in this encounter Care Teams Service Coordinator Relationship Specialty Start Date End Date Lena Haq NP [address] [place] [address] PCP - General Family Medicine 01/25/22 07/31/24 documented as of this encounter
--- OUTSIDE RECORDS SUMMARY | 2024-09-22 23:37 | XMS_ITS | Encounter Summary ---
Author Organization [facility] Address [address] [place] [address] Phone [email or web address] Care Team Providers Care Casino Games Dealer Name Role Phone Lena Haq LOG SCALER Primary Care Provider [phone] Reason for Visit * Reason Onset Date Comments Med Refill 12/16/2022 Encounter Details Date Type Department Care Team (Late st Contact Info) Description 12/16/[address] [address] Lena Haq NP [address] [place] [address] Hyperlipidemia, unspecified hyperlipidemia type; Rheumatoid arthritis [...] Sex Assigned at Male 10/01/2021 1:36 PM NATIONAL ACCOUNT DIRECTOR Legal Sex Male 10:47 AM CDT Gender Identity Male 10/01/2021 1:36 PM NATIONAL ACCOUNT DIRECTOR Sexual Orientation Not on file documented as of this encounter Plan of Treatment Not on file documented as of this encounter Visit Diagnoses Diagnosis Hyperlipidemia, unspecified hyperlipidemia type Rheumatoid arthritis with positive rheumatoid factor, involving unspecified site (CMS/HCC) Chronic pain of both knees Essential (primary) hypertension Unspecified essential hypertension documented in this encounter Care Teams Casino Games Dealer Relationship Specialty Start Date End Date Lena Haq NP [address] [place] [address] PCP - General Family Medicine 01/25/22 07/31/24 documented as of this encounter
--- OUTSIDE RECORDS SUMMARY | 2024-09-22 23:37 | XMS_ITS | Encounter Summary ---
Author Organization [facility] Address [address] [place], [place] [id number] Phone [email or web address] Care Team Providers Care Telephone Installer Name Role Phone Lena Haq NP Primary Care Provider [phone] Reason for Visit * Reason Comments Hypertension Follow Up Encounter Details Date Type Department Care Team (Latest Contact Info) Description 10/05/2023 10:30 AM WHEELAGE CLERK Office Visit [address] [address] Lena Haq NP [address] [place] [id number] Hyperlipidemia, unspecified hyperlipidemia type (Primary Dx); Medication refill; Essential (primary) hypertension Social History Tobacco Use [...] Sex Assigned at Male 10/01/2021 1:36 PM WHEELAGE CLERK Legal Sex Male 10:47 AM CDT Gender Identity Male 10/01/2021 1:36 PM WHEELAGE CLERK Sexual Orientation Not on file documented as of this encounter Last Filed Vital Signs Vital Sign Reading Time Taken Comments Blood Pressure 140/78 10/05/2023 10:33 AM WHEELAGE CLERK Pulse 86 10/05/2023 10:33 AM WHEELAGE CLERK Temperature 34.9 ??C (94.8 ??F) 10/05/2023 10:[address] Respiratory Rate 20 10/05/2023 10:33 AM WHEELAGE CLERK Oxygen Saturation 96% 10/05/2023 10:33 AM WHEELAGE CLERK Inhaled Oxygen Concentration - - Weight 172 kg (379 lb) 10/05/2023 10:33 AM WHEELAGE CLERK Height 200.7 cm (6' 7 ) 10/05/2023 10:33 AM WHEELAGE CLERK Body Mass Index 42.7 10/05/2023 10:33 AM WHEELAGE CLERK documented in this encounter Patient Instructions * Attachments The following attachments cannot be sent through Care Everywhere. * Low-Fat: Diet: General Info ([place] Citizen) documented in this encounter Progress Notes * Lena Haq NP - 10/05/2023 10:30 AM CST Subjective: Ronnie Tadeo is a 53 y.o. male. Chief Complaint: Chief Complaint Patient presents with Hypertension Follow Up History Reviewed: The following portions of the patient's chart were reviewed in this encounter and updated as appropriate: Tobacco Allergies Meds Problems Med Hx Surg Hx Fam Hx Lab review and blood pressure follow up. Taking meds as prescribed. No complaints today. Review of Systems Constitutional: Negative. Negative for chills, fatigue and fever. Respiratory: Negative for shortness of breath. Cardiovascular: Negative for chest pain. Gastrointestinal: Negative for diarrhea, nausea and vomiting. Neurological: Negative for dizziness. Visit Vitals BP 140/78 Pulse 86 Temp (!) 94.8 ??F Resp 20 Ht 6' 7 Wt (!) 379 lb SpO2 96% BMI 42.70 kg/m?? Smoking Status Heavy Smoker BSA 3.1 m?? Current Outpatient Medications: amLODIPine (NORVASC) 5 MG tablet, Take 1 tablet (5 mg total) by mouth 1 (one) time each day., Disp:90 tablet, Rfl: 0 aspirin (ST SHIRA) 81 MG EC tablet, Take 81 mg by mouth 1 (one) time each day., Disp: , Rfl: atorvastatin (LIPITOR) 40 MG tablet, Take 1 [...] each day., Disp: 90 tablet, Rfl: 1 atorvastatin (LIPITOR) 40 MG tablet, Take 2 tablets (80 mg total) by mouth 1 (one) time each day., Disp: 90 tablet, Rfl: 0 Patient Active Problem List [...] normal. Assessment/Plan: Jas was seen today for hypertension follow up. Diagnoses and all orders for this visit: Hyperlipidemia, unspecified hyperlipidemia type (Primary) Assessment & Plan: Eat heart-healthy foods. Eat [...] before you use any other medicines, including [id number]. Make sure your doctor knows all of [...] to er if abdominal pain or vomiting. Orders: - atorvastatin (LIPITOR) 40 MG tablet; Take 2 tablets (80 mg total) by mouth 1 (one) time each day. - CMP12+LP+6AC ([id number]) - [facility]; Future Medication refill Assessment & Plan: Meds dispensed. Take as prescribed. Patient was counseled on medication risk, side effects, and possible complications. Patient was counseled on how to properly take the medication and to call with any adverse reactions. Patient stated understanding. Stay active. Watch diet. Follow up prn. Essential (primary) hypertension Assessment & Plan: Pt [...] Taking meds as prescribed Continue same meds Lena Haq NP LAGE CLERK documented in this encounter Miscellaneous Notes * Assessment & Plan Note - Lena Haq NP - 10/05/2023 11:01 AM WHEELAGE CLERK Associated Problem(s): Essential (primary) hypertension Pt has h/o [...] Taking meds as prescribed Continue same meds LAGE CLERK * Assessment & Plan Note - Lena Haq NP - 10/05/2023 11:00 AM WHEELAGE CLERK Associated Problem(s): Medication refill Meds dispensed. Take as prescribed. Patient was counseled on medication risk, side effects, and possible complications. Patient was counseled on how to properly take the medication and to call with any adverse reactions. Patient stated understanding. Stay active. Watch diet. Follow up prn. LAGE CLERK * Assessment & Plan Note - Lena Haq NP - 10/05/2023 11:00 AM WHEELAGE CLERK Associated Problem(s): Hyperlipidemia Eat heart-healthy foods. Eat fruits, [...] before you use any other medicines, including [id number]. Make sure your doctor knows all of [...] to er if abdominal pain or vomiting. LAGE CLERK LAGE CLERK documented in this encounter Plan of Treatment Not on file documented as of this encounter Visit Diagnoses Diagnosis Hyperlipidemia, unspecified hyperlipidemia type- Primary Medication refill Issue of repeat prescriptions Essential (primary) hypertension Unspecified essential hypertension documented in this encounter Care Teams Telephone Installer Relationship Specialty Start Date End Date Lena Haq NP [address] [place] [address] PCP - General Family Medicine 01/25/22 07/31/24 documented as of this encounter
--- OUTSIDE RECORDS SUMMARY | 2024-09-22 23:37 | XMS_ITS | Encounter Summary ---
Author Organization [facility] Address [address] [place] [address]. [place], [place] [address] [place] [address] Care Team Providers Care Firer Electric Locomotive Name Role Phone Lena Haq Primary Care Provider [phone] Reason for Visit * Reason Onset Date Comments Consult 03/25/2024 Encounter Details Date Type Department Care Team (Late st Contact Info) Description 03/25/[address] [address] Susana Ríos RMA Consult Social History Tobacco Use Types Packs/Day Years Used Date Smoking Tobacco: Never Assessed Sex and Gender Information Value Date Recorded Sex Assigned at Not on file Legal Sex Male 5:29 PM CDT Gender Identity Not on file Sexual Orientation Not on file documented as of this encounter Progress Notes * NATALY Tucker - 03/25/2024 2:20 PM CDT Left message to schedule cardiology consult per Lena Haq NP documented in this encounter Plan of Treatment Not on file documented as of this encounter Visit Diagnoses Not on filedocumented in this encounter Care Teams Firer Electric Locomotive Relationship Specialty Start Date End Date Lena Haq FNP [address] [place], [place] [address] PCP - General NURSE PRACTITIONER 03/22/24 documented as of this encounter
--- OUTSIDE RECORDS SUMMARY | 2024-09-22 23:37 | XMS_ITS | Encounter Summary ---
Author Organization [facility] Address [address] [place] [address]. [place], [place] [address] [place] [address] Care Team Providers Care Gas Welding Equipment Mechanic Name Role Phone Vincenzo Salazar MD Primary Care Provider [phone] Jerome Finch MD Primary Care Provider Unavailable Jerome Finch MD Primary Care Provider Unavailable Encounter Details Date Type Department Care Team (Late st Contact Info) Description 02/01/1996 [place] [address] Jerome Finch MD Social History Tobacco Use [...] on filedocumented in this encounter Care Teams Gas Welding Equipment Mechanic Relationship Specialty Start Date End Date Vincenzo Salazar MD [address] [facility] [address] [place] [address] PCP - General 07/10/13 03/21/24 Jerome Finch MD PCP - General 10/07/1107/09 Jerome Finch MD PCP - General 09/30/11 documented as of this encounter
--- OUTSIDE RECORDS SUMMARY | 2024-09-22 23:37 | XMS_ITS | Encounter Summary ---
Author Organization [facility] Address [address] [place] [address] Phone [email or web address] Care Team Providers Care Certified Surgical Assistant Name Role Phone Unavailable Primary Care Provider Unavailabl e Reason for Visit * Reason Comments Hypertension Follow Up Encounter Details Date Type Department Care Team (Latest Contact Info) Description 10/07/2021 12:00 PM SOCK FOLDER Office Visit [address] [address] Lena Haq, DIRECTOR BIOSTATISTICS [address] [place] [phone] Essential (primary) hypertension (Primary Dx); Hyperlipidemia, unspecified hyperlipidemia type; Vitamin D deficiency, unspecified; Rheumatoid arthritis with positive rheumatoid factor, involving unspecified site (CMS/HCC); Chronic pain of both knees Social History [...] Sex Assigned at Male 10/01/2021 1:36 PM SOCK FOLDER Legal Sex Male 10:47 AM CDT Gender Identity Male 10/01/2021 1:36 PM SOCK FOLDER Sexual Orientation Not on file COVID-19 Exposure Response Date Recorded In the last month, have you been in contact with someone who was confirmed or suspected to have Coronavirus / COVID-19? No / Unsure 10/07/2021 12:09 PM SOCK FOLDER documented as of this encounter Last Filed Vital Signs Vital Sign Reading Time Taken Comments Blood Pressure 160/96 10/07/2021 12:16 PM SOCK FOLDER Pulse 94 10/07/2021 12:16 PM SOCK FOLDER Temperature 36.8 ??C (98.2 ??F) 10/07/2021 12:[address] Respiratory Rate 18 10/07/2021 12:16 PM SOCK FOLDER Oxygen Saturation 97% 10/07/2021 12:16 PM SOCK FOLDER Inhaled Oxygen Concentration - - Weight 169 kg (373 lb) 10/07/2021 12:16 PM SOCK FOLDER Height 200.7 cm (6' 7 ) 10/07/2021 12:16 PM SOCK FOLDER Body Mass Index 42.02 10/07/2021 12:16 PM SOCK FOLDER documented in this encounter Progress Notes * Lena Haq NP - 10/07/2021 12:00 PM CST Subjective: Ronnie Tadeo is a 51 y.o. male. Chief Complaint: Chief Complaint Patient presents with ??? Hypertension Follow Up History Reviewed: The following portions of the patient's chart were reviewed in this encounter and updated as appropriate: Tobacco Allergies Meds Problems Med Hx Surg Hx Fam Hx Bilateral Knee pain-chronic. Requesting injections. Last injection 10 years ago. Going to schedule with rheumatolgy--generalized joint pains. Follows with his pcp regularly and he made the referral already. Recently lost his 29 year old son. Grieving. Not sleeping well. Has melatonin but hasn't taken any. States he is getting by but sad . Has not been taking his meds as prescribed. Is going to start though. Needs refills. Continues to smoke about 1 1/2 packs per day. Hopes to move to the [facility] in the next year. Review of Systems Constitutional: Negative. Negative for chills, fatigue and fever. Respiratory: Negative for shortness of breath. Cardiovascular: Negative for chest pain. Gastrointestinal: Negative for diarrhea, nausea and vomiting. Musculoskeletal: Positive for arthralgias. Neurological: Negative for dizziness. Psychiatric/Behavioral: Positive for dysphoric mood and sleep disturbance. Negative for self-injuryand suicidal ideas. Visit Vitals BP (!) 160/96 Pulse 94 Temp 98.2 ??F Resp 18 Ht 6' 7 Wt (!) 373 lb SpO2 97% BMI 42.02 kg/m?? Smoking Status Heavy Tobacco Smoker BSA 3.07 m?? Patient Active Problem [...] to Visit Medication Sig Dispense Refill ??? fluticasone-salmeterol (ADVAIR DISKUS) 250-50 MCG/DOSE diskus inhaler Inhale 1 puff 2 (two) times a day. Rinse mouth with water after use to reduce aftertaste and incidence of candidiasis. Do notswallow. ??? [DISCONTINUED] atorvastatin (LIPITOR) 40 MG tablet Take 40 mg by mouth 1 (one) time each day. ??? [DISCONTINUED] cholecalciferol (VITAMIN D-3) 1.25 MG (66706 UT) capsule Take 50,000 Units by mouth 1 (one) time per week. ??? [DISCONTINUED] lisinopril (ZESTRIL) 10 MG tablet Take 10 mg by mouth 1 (one) time each day. No current facility-administered medications on file prior [...] is normal. Breath sounds: Normal breath sounds. Musculoskeletal: Right knee: No erythema. Normal range of motion. Tenderness present over the medial joint line. Left knee: Effusion present. No erythema. Normal range of motion. Tenderness present over the lateral joint line. No patellar tendon tenderness. Skin: General: Skin is warm and dry. Neurological: Mental Status: He is alert and oriented to person, place, and time. Psychiatric: Mood and Affect: Mood normal. Behavior: Behavior normal. Assessment/Plan: Diagnoses and all orders for this visit: Essential (primary) hypertension - lisinopril (ZESTRIL) 10 MG tablet; Take 1 tablet (10 mg total) by mouth 1 (one) time each day. Hyperlipidemia, unspecified hyperlipidemia type - atorvastatin (LIPITOR) 40 MG tablet; Take 1 tablet (40 mg total) by mouth 1 (one) time each day. Vitamin D deficiency, unspecified - cholecalciferol (VITAMIN D-3) 1.25 MG (18506 UT) capsule; Take 1 capsule (50,000 Units total) by mouth 1 (one) time per week. Rheumatoid arthritis with positive rheumatoid factor, involving unspecified site (CMS/HCC) - diclofenac (VOLTAREN) 75 MG EC tablet; Take 1 tablet (75 mg total) by mouth 2 (two) times a day. Do not crush, chew, or split. Other orders - Arthrocentesis - Arthrocentesis The left and right Knees were prepped in the usual sterile fashion. Using a 22 gauge 1.5 inch needle, a 3 mL mixture of 2 mL of lidocaine and 1 mL triamcinolone - 40 mg/mL was injected into each without difficulty. After injection, the knees were passively moved through range of motion and a sterile dressing was applied. The patient tolerated the procedure well. Aftercare discussed. Start diclofenac daily for arthritic pain. May need to increase to BID dosing. Make and keep appt with rheumatology. Declines med or counseling to help with situational depression. Has excellent support system with family and friends.Denies any SIHI. Long discussion with him. Meds dispensed. Take as prescribed. Patient was counseled on medication risk, side effects, and possible complications. Patient was counseled on how to properly take the medication and to call with any adverse reactions. Patient stated understanding. Stay active. Watch diet. Follow up prn. FOLDER documented in this encounter Procedure Notes * Lena Haq NP - 10/07/2021 12:00 PM CSTAssociated Order(s): Arthrocentesis Arthrocentesis Date/Time: 10/07/2021 1:26 PM Performed by: Lena Haq NP Authorized by: Lena Haq NP Consent: Consent obtained: Verbal Consent given by: Patient Risks discussed: Bleeding, infection and pain Alternatives discussed: No treatment and alternative treatment [place] Protocol: Procedure explained and questions answered to patient or proxy's satisfaction: yes Immediately prior to procedure, a time out was called: yes Patient identity confirmed: Verbally with patient Location: Location: Knee Knee: L knee Procedure details: Preparation: Patient was prepped and draped in usual sterile fashion Needle gauge: 22 G Ultrasound guidance: no Approach: Lateral Steroid injected: yes Specimen collected: no Post-procedure details: Dressing: Adhesive bandage Patient tolerance of procedure: Tolerated well, no immediate complications FOLDER * Lena Haq NP - 10/07/2021 12:00 PM CSTAssociated Order(s): Arthrocentesis Arthrocentesis Date/Time: 10/07/2021 1:27 PM Performed by: Lena Haq NP Authorized by: Lena Haq NP Consent: Consent obtained: Verbal Consent given by: Patient Risks discussed: Bleeding, infection and pain Alternatives discussed: No treatment and alternative treatment [place] Protocol: Procedure explained and questions answered to patient or proxy's satisfaction: yes Immediately prior to procedure, a time out was called: yes Patient identity confirmed: Verbally with patient Location: Location: Knee Knee: R knee Procedure details: Preparation: Patient was prepped and draped in usual sterile fashion Needle gauge: 22 G Ultrasound guidance: no Approach: Medial Steroid injected: yes Specimen collected: no Post-procedure details: Dressing: Adhesive bandage Patient tolerance of procedure: Tolerated well, no immediate complications FOLDER documented in this encounter Plan of Treatment Not on file documented as of this encounter Procedures Procedure Name Priority Date/Time Associated Diagnosis Comments JOINT ASPIRATION/INJECTIO N Routine 10/07/2021 1:27 PM SOCK FOLDER Chronic pain of both knees JOINT ASPIRATION/INJECTIO N Routine 10/07/2021 1:26 PM SOCK FOLDER Chronic pain of both knees documented in this encounter Results * Arthrocentesis (10/07/2021 1:27 PM SOCK FOLDER) Narrative Lena Haq NP - 10/07/2021 1:27 PM SOCK FOLDER Lena Haq NP ? 10/07/2021 ??1:37 PM Arthrocentesis Date/Time: 10/07/2021 1:27 PM Performed by: Lena Haq NP Authorized by: Lena Haq NP Consent: ??Consent obtained: ??Verbal ??Consent given by: ??Patient ??Risks discussed: ??Bleeding, infection and pain ??Alternatives discussed: ??No treatment and alternative treatment [place] Protocol: ??Procedure explained and questions answered to patient or proxy's satisfaction: yes ?Immediately prior to procedure, a time out was called: yes ?Patient identity confirmed: ??Verbally with patient Location: ??Location: ??Knee ??Knee: ??R knee Procedure details: ??Preparation: Patient was prepped and draped in usual sterile fashion ?Needle gauge: ??22 G ??Ultrasound guidance: no ?Approach: ??Medial ??Steroid injected: yes ?Specimen collected: no ?? Post-procedure details: ??Dressing: ??Adhesive bandage ??Patient tolerance of procedure: ??Tolerated well, no immediate complications us Lena Haq NP IN CLINIC/BEDSIDE ORDERABLES F inal Result * Arthrocentesis (10/07/2021 1:26 PM SOCK FOLDER) Narrative Lena Haq NP - 10/07/2021 1:26 PM SOCK FOLDER Lena Haq NP ? 10/07/2021 ??1:37 PM Arthrocentesis Date/Time: 10/07/2021 1:26 PM Performed by: Lena Haq NP Authorized by: Lena Haq NP Consent: ??Consent obtained: ??Verbal ??Consent given by: ??Patient ??Risks discussed: ??Bleeding, infection and pain ??Alternatives discussed: ??No treatment and alternative treatment [place] Protocol: ??Procedure explained and questions answered to patient or proxy's satisfaction: yes ?Immediately prior to procedure, a time out was called: yes ?Patient identity confirmed: ??Verbally with patient Location: ??Location: ??Knee ??Knee: ??L knee Procedure details: ??Preparation: Patient was prepped and draped in usual sterile fashion ?Needle gauge: ??22 G ??Ultrasound guidance: no ?Approach: ??Lateral ??Steroid injected: yes ?Specimen collected: no ?? Post-procedure details: ??Dressing: ??Adhesive bandage ??Patient tolerance of procedure: ??Tolerated well, no immediate complications us Lena Haq NP IN CLINIC/BEDSIDE ORDERABLES F inal Result documented in this encounter Visit Diagnoses Diagnosis Essential (primary) hypertension- Primary Unspecified essential hypertension Hyperlipidemia, unspecified hyperlipidemia type Vitamin D deficiency, unspecified Rheumatoid arthritis with positive rheumatoid factor, involving unspecified site ([facility]/HCC) Chronic pain of both knees documented in this encounter
--- OUTSIDE RECORDS SUMMARY | 2024-09-22 23:37 | XMS_ITS | Encounter Summary ---
Author Organization [facility] Address [address] [place] [address] Phone [email or web address] Care Team Providers Care Facsimile Operator Name Role Phone Unavailable Primary Care Provider Unavailabl e Encounter Details Date Type Department Care Team (Late st Contact Info) Description 12/24/2021 Telephone Patient Support Center [address] [place] [phone] Social History Tobacco Use Types Packs/Day Years [...] Sex Assigned at Male 10/01/2021 1:36 PM JOINT SUPERVISOR Legal Sex Male 10:47 AM CDT Gender Identity Male 10/01/2021 1:36 PM JOINT SUPERVISOR Sexual Orientation Not on file documented as of this encounter Miscellaneous Notes * Telephone Encounter - KURTIS MONTAÑO - 12/24/2021 12:10 PM CDT Patient was returning call to center, I did let patient know that he had just missed them, they closed at 12. Stated he understood and will try back Monday documented in this encounter Plan of Treatment Not on file documented as of this encounter Visit Diagnoses Not on filedocumented in this encounter
--- OUTSIDE RECORDS SUMMARY | 2024-09-22 23:37 | XMS_ITS | Encounter Summary ---
Author Organization [facility] Address [address] [place] [address]. [place], [place] [address] [place] [address] Care Team Providers Care Medical Record Coder Name Role Phone Vincenzo Salazar MD Primary Care Provider [phone] Jerome Finch MD Primary Care Provider Unavailable Jerome Finch MD Primary Care Provider Unavailable Encounter Details Date Type Department Care Team (Late st Contact Info) Description 09/30/2011 Emergency [facility] [place] [address] Jerome Finch MD Social History Tobacco Use [...] encounter Visit Diagnoses Diagnosis Open wound of finger Open wound of finger(s) , without mention of complication documented in this encounter Care Teams Medical Record Coder Relationship Specialty Start Date End Date Vincenzo Salazar MD [address] [place] [address] PCP - General 07/10/13 03/21/24 Jerome Finch MD PCP - General 10/07/1107/09 Jerome Finch MD PCP - General 09/30/11 documented as of this encounter
--- OUTSIDE RECORDS SUMMARY | 2024-09-22 23:37 | XMS_ITS | Encounter Summary ---
Author Organization [facility] Address [address] [place] [address]. [place], [place] [address] [place] [address] Care Team Providers Care Sharebroker Name Role Phone Vincenzo Salazar MD Primary Care Provider [phone] Jerome Finch MD Primary Care Provider Unavailable Jerome Finch MD Primary Care Provider Unavailable Encounter Details Date Type Department Care Team (Late st Contact Info) Description 08/26/1998 [place] [address] Jerome Finch MD Social History Tobacco Use [...] on filedocumented in this encounter Care Teams Sharebroker Relationship Specialty Start Date End Date Vincenzo Salazar MD [address] [facility] [address] [place] [address] PCP - General 07/10/13 03/21/24 Jerome Finch MD PCP - General 10/07/1107/09 Jerome Finch MD PCP - General 09/30/11 documented as of this encounter
--- OUTSIDE RECORDS SUMMARY | 2024-09-22 23:37 | XMS_ITS | Encounter Summary ---
Author Organization [facility] Address [address] [place] [address]. [place], [place] [address] [place] [address] Care Team Providers Care Associate Music Professor Name Role Phone Vincenzo Salazar MD Primary Care Provider [phone] Jerome Finch MD Primary Care Provider Unavailable Encounter Details Date Type Department Care Team (Latest Contact Info) Description 07/27/2012 Abstract [facility] Social History Tobacco Use Types Packs/Day Years [...] on filedocumented in this encounter Care Teams Associate Music Professor Relationship Specialty Start Date End Date Vincenzo Salazar MD [address] [place] [address] PCP - General 07/10/13 03/21/24 Jerome Finch MD PCP - General 10/07/1107/09 documented as of this encounter
--- OUTSIDE RECORDS SUMMARY | 2024-09-22 23:37 | XMS_ITS | Encounter Summary ---
Author Organization [facility] Address [address] [place] [address]. [place], [place] [address] [place] [address] Care Team Providers Care Professor Of Communication And Writing Name Role Phone Vincenzo Salazar MD Primary Care Provider [phone] Jerome Finch MD Primary Care Provider Unavailable Jerome Finch MD Primary Care Provider Unavailable Encounter Details Date Type Department Care Team (Late st Contact Info) Description 10/25/1994 Abstract [place] [address] Jerome Finch MD Social History Tobacco Use [...] on filedocumented in this encounter Care Teams Professor Of Communication And Writing Relationship Specialty Start Date End Date Vincenzo Salazar MD [address] [facility] [address] [place] [address] PCP - General 07/10/13 03/21/24 Jerome Finch MD PCP - General 10/07/1107/09 Jerome Finch MD PCP - General 09/30/11 documented as of this encounter
--- OUTSIDE RECORDS SUMMARY | 2024-09-22 23:37 | XMS_ITS | Encounter Summary ---
Author Organization [facility] Address [address] [place] [address] Phone [email or web address] Care Team Providers Care Front Desk Person Name Role Phone Lena Haq MAINSPRING FORMER BRACE END Primary Care Provider [phone] Reason for Visit * Reason Comments Chronic Condition-multiple Follow-up Encounter Details Date Type Department Care Team (Latest Contact Info) Description 06/14/2023 4:00 PM CDT Office Visit [facility] [address] [place] [address] Lena Haq NP [address] [place] [address] Plantar fasciitis, left (Primary Dx); Essential (primary) hypertension; Hyperlipidemia, unspecified [...] Sex Assigned at Male 10/01/2021 1:36 PM STAVE BOLT EQUALIZER Legal Sex Male 10:47 AM CDT Gender Identity Male 10/01/2021 1:36 PM STAVE BOLT EQUALIZER Sexual Orientation Not on file documented as of this encounter Last Filed Vital Signs Vital Sign Reading Time Taken Comments Blood Pressure 146/68 06/14/2023 4:09 PM CDT Pulse 84 06/14/2023 4:09 PM CDT Temperature 36.8 ??C (98.3 ??F) 06/14/2023 4:09 PM CD T Respiratory Rate 24 06/14/2023 4:09 PM CDT Oxygen Saturation 97% 06/14/2023 4:09 PM CDT Inhaled Oxygen Concentration - - Weight 165 kg (363 lb 3.2 oz) 06/14/2023 4:09 PM CDT Height 200.7 cm (6' 7 ) 06/14/2023 4:09 PM CDT Body Mass Index 40.92 06/14/2023 4:09 PM CDT documented in this encounter Patient Instructions * Attachments The following attachments cannot be sent through Care Everywhere. * Arch Pain: Exercises (Persian) * Plantar Fasciitis (Persian) documented in this encounter Progress Notes * Lena Haq NP - 06/14/2023 4:00 PM CDT Subjective: Ronnie Tadeo is a 53 y.o. male. Chief Complaint: Chief Complaint Patient presents with Chronic Condition-multiple Follow-up History Reviewed: The following portions of the patient's chart were reviewed in this encounter and updated as appropriate: Tobacco Allergies Meds Problems Med Hx Surg Hx Fam Hx Here for med refills. Takes meds as prescribed. Has been having left foot pain x 4 months. Seems worse the last 2 months. Especially bad when he first gets up in the morning. No injury. Bought insoles but that does not seem to be helping. Review of Systems Constitutional: Negative. Negative for chills, fatigue and fever. Respiratory: Negative for shortness of breath. Cardiovascular: Negative for chest pain. Gastrointestinal: Negative for diarrhea, nausea and vomiting. Neurological: Negative for dizziness. Visit Vitals BP 146/68 Pulse 84 Temp 98.3 ??F Resp 24 Ht 6' 7 Wt (!) 363 lb 3.2 oz SpO2 97% BMI 40.92 kg/m?? Smoking Status Heavy Smoker BSA 3.03 m?? Patient Active Problem List Diagnosis Obstructive sleep apnea (adult) (pediatric) Rheumatoid arthritis, unspecified (CMS/HCC) Other forms of dyspnea Medication refill Vitamin D deficiency, unspecified Obesity, unspecified Hyperlipidemia Essential (primary) hypertension Tobacco use Prediabetes Chronic pain of both knees Plantar fasciitis, left Past Surgical History: Procedure Laterality Date ARTHROSCOPIC REPAIR ACL Right KNEE ARTHROSCOPY Bilateral Social History Socioeconomic History Marital status: Spouse name: Not on file Number of children: Not on file Years of education: Not on file Highest education level: Not on file Occupational History Not on file Tobacco Use Smoking status: Heavy Smoker Packs/day: 1.50 Types: Cigarettes Smokeless tobacco: Never Tobacco [...] Stress: Not on file Intimate Partner Violence: Not on file Housing Stability: Not on file Objective: Physical Exam Vitals and nursing note reviewed. Constitutional: Appearance: Normal appearance. HENT: Head: Normocephalic. Cardiovascular: Rate and Rhythm: Normal rate and regular rhythm. Pulmonary: Effort: Pulmonary effort is normal. Breath sounds: Normal breath sounds. Musculoskeletal: Left foot: Normal range of motion and normal capillary refill. Tenderness present. No swelling. Normal pulse. Skin: General: Skin is warm and dry. Neurological: Mental Status: He is alert and oriented to person, place, and time. Psychiatric: Mood and Affect: Mood normal. Behavior: Behavior normal. Assessment/Plan: Ronnie was seen today for chronic condition-multiple follow-up. Diagnoses and all orders for this visit: Plantar fasciitis, left (Primary) Assessment & Plan: Stretching reviewed with pt Tylenol prn package instructions If no improvement or worsening, will need to see podiatry Essential (primary) hypertension Assessment & Plan: Pt [...] and take any prescribed medications as ordered. Orders: - amLODIPine (NORVASC) 5 MG tablet; [...] before you use any other medicines, including [id number]-[id number]. Make sure your doctor knows all of the medicines, vitamins, herbal products, and supplements you take. Taking some medicines together can cause problems. Orders: - atorvastatin (LIPITOR) 40 MG tablet; [...] Plan Note - Lena Haq NP - 06/14/2023 4:48 PM CDTAssociated Problem(s): Plantar fasciitis, left Stretching reviewed with pt Tylenol prn package instructions If no improvement or worsening, will need to see podiatry * Assessment & Plan Note - Lena Haq NP - 06/14/2023 4:47 PM CDTAssociated Problem(s): Obesity, unspecified Weight down almost 20 pounds by cutting out soda Pt has an elevated BMI over 30 Body mass index is BMI Readings from Last 1 Encounters: 06/14/23 40.92 kg/m?? and you will need to work hard on reducing carbohydrates and total calories. You may use the free smart phone [employer] to help track calories and try to reduce by 15%every 4 weeks. You should also work on reducing your total portion sizes. You should be exercising about 30 minutes every day with cardio work outs. You should strive to avoid regular soda, juices and alcohol. * Assessment & Plan Note - Lena Haq NP - 06/14/2023 4:46 PM CDTAssociated Problem(s): Medication refill Meds dispensed. Take as prescribed. Patient was counseled on medication risk, side effects, and possible complications. Patient was counseled on how to properly take the medication and to call with any adverse reactions. Patient stated understanding. Stay active. Watch diet. Follow up prn. * Assessment & Plan Note - Lena Haq NP - 06/14/2023 4:46 PM CDTAssociated Problem(s): Hyperlipidemia Eat heart-healthy foods. [...] before you use any other medicines, including ptwi-syn-ihaczfyqhruhghkc. Make sure your doctor knows all of the medicines, vitamins, herbal products, and supplements you take. Taking some medicines together can cause problems. * Assessment & Plan Note - Lena Haq NP - 06/14/2023 4:46 PM CDTAssociated Problem(s): Essential (primary) hypertension Pt [...] and take any prescribed medications as ordered. documented in this encounter Plan of Treatment Not on file documented as of this encounter Visit Diagnoses Diagnosis Plantar fasciitis, left- Primary Essential (primary) hypertension Unspecified essential hypertension Hyperlipidemia, unspecified hyperlipidemia type Rheumatoid arthritis with positive rheumatoid factor, involving unspecified site ([facility]) Chronic pain of both knees Medication refill Issue of repeat prescriptions documented in this encounter Care Teams Front Desk Person Relationship Specialty Start Date End Date Lena Haq NP [address] [place] [address] PCP - General Family Medicine 01/25/22 07/31/24 documented as of this encounter
--- OUTSIDE RECORDS SUMMARY | 2024-09-22 23:37 | XMS_ITS | Encounter Summary ---
Author Organization [facility] Address [address] [place] [address] Phone [email or web address] Care Team Providers Care Counterintelligence Analyst Name Role Phone Lena Haq DRAFTING DETAILER Primary Care Provider [phone] Reason for Visit * Reason Onset Date Comments Med Refill 09/01/2022 Encounter Details Date Type Department Care Team (Late st Contact Info) Description 09/01/[address] [address] Lena Haq NP [address] [place] [address] Vitamin D deficiency, unspecified; Hyperlipidemia, unspecified hyperlipidemia type Social History Tobacco Use Types Packs/Day Years [...] Sex Assigned at Male 10/01/2021 1:36 PM WEB FEEDER Legal Sex Male 10:47 AM CDT Gender Identity Male 10/01/2021 1:36 PM WEB FEEDER Sexual Orientation Not on file documented as of this encounter Plan of Treatment Not on file documented as of this encounter Visit Diagnoses Diagnosis Vitamin D deficiency, unspecified Hyperlipidemia, unspecified hyperlipidemia type documented in this encounter Care Teams Counterintelligence Analyst Relationship Specialty Start Date End Date Lena Haq NP [address] [place] [address] PCP - General Family Medicine 01/25/22 07/31/24 documented as of this encounter
--- OUTSIDE RECORDS SUMMARY | 2024-09-22 23:37 | XMS_ITS | Encounter Summary ---
Author Organization [facility] Address [address] [place] [address] Phone [email or web address] Care Team Providers Care Barrel Loader Name Role Phone Lena Haq AIR TRAFFIC COORDINATOR Primary Care Provider [phone] Reason for Visit * Reason Comments Chronic Condition-multiple Follow-up Encounter Details Date Type Department Care Team (Latest Contact Info) Description 12/20/2022 10:00 AM CDT Office Visit [facility] [address] [place] [address] Lena Haq NP [address] [place] [address] Class 3 severe obesity due to excess calories with serious comorbidity and body mass index (BMI) of 40.0 to 44.9 in adult (CMS/HCC) (Primary Dx); Hyperlipidemia, unspecified hyperlipidemia type; Rheumatoid arthritis with positive rheumatoid factor, involving unspecified site ([facility]); Chronic pain of both knees; Essential (primary) hypertension; Tobacco use; Mixed hyperlipidemia Social History Tobacco Use Types Packs/Day Years [...] Sex Assigned at Male 10/01/2021 1:36 PM PAPER COUNTER Legal Sex Male 10:47 AM CDT Gender Identity Male 10/01/2021 1:36 PM PAPER COUNTER Sexual Orientation Not on file documented as of this encounter Last Filed Vital Signs Vital Sign Reading Time Taken Comments Blood Pressure 160/96 12/20/2022 10:10 AM CDT Pulse 84 12/20/2022 10:10 AM CDT Temperature 36.4 ??C (97.6 ??F) 12/20/2022 10:10 AM C DT Respiratory Rate 18 12/20/2022 10:10 AM CDT Oxygen Saturation 96% 12/20/2022 10:10 AM CDT Inhaled Oxygen Concentration - - Weight 174 kg (382 lb 12.8 oz) 12/20/2022 10:10 AM CDT Height 200.7 cm (6' 7 ) 12/20/2022 10:10 AM CDT Body Mass Index 43.12 12/20/2022 10:10 AM CDT documented in this encounter Patient Instructions * Attachments The following attachments cannot be sent through Care Everywhere. * Diet: DASH (Mexican) documented in this encounter Progress Notes * Lena Haq NP - 12/20/2022 10:00 AM CDT Subjective: Ronnie Tadeo is a 52 y.o. male. Chief Complaint: Chief Complaint Patient presents with ??? Chronic Condition-multiple Follow-up History Reviewed: The following portions of the patient's chart were reviewed in this encounter and updated as appropriate: Tobacco Allergies Meds Problems Med Hx Surg Hx Fam Hx Here for med refills. Takes meds as prescribed. Knees are bothering him again. Had surgery last year on his meniscus. Twisted it shortly after surgery and feels like he tore it again. Has not followed up with ortho recently. Review of Systems Constitutional: Negative. Negative for chills, fatigue and fever. Respiratory: Negative for shortness of breath. Cardiovascular: Negative for chest pain. Gastrointestinal: Negative for diarrhea, nausea and vomiting. Neurological: Negative for dizziness. Visit Vitals BP (!) 160/96 Pulse 84 Temp 97.6 ??F Resp 18 Ht 6' 7 Wt (!) 382 lb 12.8 oz SpO2 96% BMI 43.12 kg/m?? Smoking Status Heavy Smoker BSA 3.11 m?? Patient Active Problem List Diagnosis ??? Obstructive sleep apnea (adult) (pediatric) ??? Rheumatoid arthritis, unspecified (CMS/HCC) ??? Other forms of dyspnea ??? Vitamin D deficiency, unspecified ??? Obesity, unspecified ??? Hyperlipidemia ??? Essential (primary) hypertension ??? Tobacco use ??? Acute sialoadenitis ??? Localized swelling, mass and lump, neck ??? Prediabetes ??? Chronic pain of both knees Current Outpatient Medications on File Prior to [...] chew, or split. . 200 tablet 3 ??? [DISCONTINUED] lisinopril (ZESTRIL) 40 MG tablet Take 1 tablet (40 mg total) by mouth 1 (one) time each day. 90 tablet 1 No current facility-administered medications on file prior [...] index (BMI) of40.0 to 44.9 in adult ([facility]) Hyperlipidemia, unspecified hyperlipidemia type - atorvastatin (LIPITOR) 40 MG tablet; Take 1 tablet (40 mg total) by mouth 1 (one) time each day. Rheumatoid arthritis with positive rheumatoid factor, involving unspecified site ([facility]) - diclofenac (VOLTAREN) 75 MG EC tablet; [...] mouth 1 (one) time each day. - amLODIPine (NORVASC) 5 MG tablet; Take 1 tablet (5 mg total) by mouth 1 (one) time each day. Tobacco use Mixed hyperlipidemia Meds dispensed. Take as prescribed. Patient was counseled on medication risk, side effects, and possible complications. Patient was counseled on how to properly take the medication and to call with any adverse reactions. Patient stated understanding. Stay active. Watch diet. Follow up prn. He is asking about knee injections. Given his recent surgery followed by an injury, will defer to ortho. Add amlodipine for BP control. Work on diet and exercise. Follow up in 1 month, sooner if needed. documented in this encounter Plan of Treatment Not on file documented as of this encounter Visit Diagnoses Diagnosis Class 3 severe obesity due to excess calories with serious comorbidity and body mass index (BMI) of 40.0 to 44.9 in adult ([facility])- Primary Hyperlipidemia, unspecified hyperlipidemia type Rheumatoid arthritis with positive rheumatoid factor, involving unspecified site ([facility]) Chronic pain of both knees Essential (primary) hypertension Unspecified essential hypertension Tobacco use Mixed hyperlipidemia documented in this encounter Care Teams Barrel Loader Relationship Specialty Start Date End Date Lena Haq NP [address] [place] [address] PCP - General Family Medicine 01/25/22 07/31/24 documented as of this encounter
--- OUTSIDE RECORDS SUMMARY | 2024-09-22 23:37 | XMS_ITS | Encounter Summary ---
Author Organization [facility] Address [address] [place] [address]. [place], [place] [address] [place] [address] Care Team Providers Care Receivable Clerk Name Role Phone Vincenzo Salazar MD Primary Care Provider [phone] Jerome Finch MD Primary Care Provider Unavailable Jerome Finch MD Primary Care Provider Unavailable Encounter Details Date Type Department Care Team (Late st Contact Info) Description 01/15/1991 Abstract [place] [address] Jerome Finch MD Social History Tobacco Use [...] on filedocumented in this encounter Care Teams Receivable Clerk Relationship Specialty Start Date End Date Vincenzo Salazar MD [address] [facility] [address] [place] [address] PCP - General 07/10/13 03/21/24 Jerome Finch MD PCP - General 10/07/1107/09 Jerome Finch MD PCP - General 09/30/11 documented as of this encounter
--- OUTSIDE RECORDS SUMMARY | 2024-09-22 23:38 | XMS_ITS | Continuity of Care Document ---
Author Organization [facility] Address [address] [place] [address] Phone Care Team Providers Care Senior Software Test Engineer Name Role Phone Pao PT, KEVINT, Marko Unavailable Unavaila ble Procedures Procedure Date Therapeutic Exercise Therapeutic Activities Neuromuscular Re-Ed Manual Therapy Hot or Cold Pack Therapeutic Exercise Therapeutic Activities Neuromuscular Re-Ed Manual Therapy Hot or Cold Pack Therapeutic Exercise Therapeutic Activities Neuromuscular Re-Ed Manual Therapy Hot or Cold Pack PT Evaluation Moderate Complexity Therapeutic Exercise Therapeutic Activities Neuromuscular Re-Ed Hot or Cold Pack Advance Directives Directive Yes / No Effective Date File Name No Information Encounters Encounter Description Practice Location Reason(s) For Visit Diagnoses Date Provider Providers Copied on Encounter [facility], [address], [place], [place], [id number], tel:[phone] Arvilla Other specified dorsopathies, lumbar regionStiffness of unspecified joint, not elsewhere classifiedMuscle weakness (generalized)Low back pain 9 Pao Zhu. . Referring Provider: Vincenzo Salazar, [address] [facility] [address], [place], [address]. tel:[phone] [facility], [address] [facility] [address], [place], [place], [id number], tel:[phone] Arvilla Other specified dorsopathies, lumbar regionStiffness of unspecified joint, not elsewhere classifiedMuscle weakness (generalized)Low back pain 9 [facility] Zhu. . Referring Provider: Vincenzo Salazar [address] [place] [address] [address], [place], [address]. tel:[phone] [facility] [address] [facility] [address], [place], [place], [id number], tel:[phone] Arvilla Other specified dorsopathies, lumbar regionStiffness of unspecified joint, not elsewhere classifiedMuscle weakness (generalized)Low back pain 9 [facility] Zhu. . Referring Provider: Vincenzo Salazar [address] [place] [address] [address], [place], [address]. tel:[phone] [facility] [address] [address], [place], [place], [id number], tel:[phone] Arvilla Other specified dorsopathies, lumbar regionStiffness of unspecified joint, not elsewhere classifiedMuscle weakness (generalized)Low back pain 9 [facility] Marko. . Referring Provider: Vincenzo Salazar [address] [place] [address] [address], [place], [address]. tel:[phone] Family History Family Member Type Diagnosis Age At Onset No Information Payers Payer name Insurance type Covered republican ID Simon flores(s) R CI [id number] Social History Type Description Quantity Date Captured Comments Sex Male Smoking Status No Information Chief Complaint And Reason For Visit No Information Reason For Referral Reason For Referral No Information History Of Present Illness Encounter Date Complaint History Of Prese nt Illness No Information Functional Status Date Functional Assessmen t No Information Instructions Date Instruction Additional Infor mation No Information Assessments Type Assessment Date No Information Patient Care Teams Name Effective Dates (start - stop) Status Members No Information
--- NOTE | 2024-09-23 10:00 | PCRCNOTE ---
Spoke to Odin at [facility] in regards to patients options for AVAPS or BIPAP set up. She will ensure the patient is aware of his options to arrange a home unit and any costs that are included in this type of treatment. If he is interested, [facility] can arrange this for him. Dr Dumont can be reached in clinic for any required orders/paperwork.
== END 2024-09-20 14:52 | disposition home or self-care (01) | DRG 140 ==
LOC: ANHED 16:16 → ANHIMU 18:09 → ANH3MEDSUR 09-18 13:55
PROVIDERS: Internal Medicine; Admitting Provider General Practice; Emergency Provider Emergency Medicine; Visit Provider Internal Medicine
DX: J44.1 Chronic obstructive pulmonary disease with (acute) exacerbation (principal); J96.02 Acute respiratory failure with hypercapnia; I10 Essential (primary) hypertension; D75.1 Secondary polycythemia; E78.5 Hyperlipidemia, unspecified; M25.50 Pain in unspecified joint; M06.9 Rheumatoid arthritis, unspecified; R73.03 Prediabetes; R56.9 Unspecified convulsions; G47.33 Obstructive sleep apnea (adult) (pediatric); F17.210 Nicotine dependence, cigarettes, uncomplicated; Z20.822 Contact with and (suspected) exposure to COVID-19; Z79.82 Long term (current) use of aspirin
CPT/HCPCS: 36415; 36600; 71045; 71250; 80053; 82375; 82607; 82746; 82805; 82948; 83036; 83050; 83605; 83735; 83880; 84100; 84132; 84145; 84439; 84443; 84480; 85018; 85025; 85027; 85610; 85730; 86140; 86430; 87040; 87070; 87205; 87385; 87449; 87637; 87899; 93005; 93306; 94002; 94003; 94618; 94640; 96365; 96367; 96374; 96375; 99285; A9270; G0378; J0456; J0696; J1650; J1815; J2270; J2919; J7512

== ENCOUNTER 2024-11-13 13:31 | Inpatient (IN) | payer SELFPAY ==
[2024-11-13] VITALS (11 sets, daily range): BP systolic 106–142; BP diastolic 61–80; PULSE 89–105; RESP 14–24; TEMP 36.4–37.8; O2SAT 87–99; BMI 39.2
--- NOTE | ~2024-11-13 | XR_ITS ---
EXAMINATION: XR chest 2V DATE: 11/13/2024 14:54 INDICATION: Shortness of breath. TECHNIQUE: Frontal and lateral views of the chest were obtained. COMPARISON: Chest single view 09/19/2024, chest CT 09/15/2024 FINDINGS: There is no pneumonia, pleural effusion, or pneumothorax. The heart size is normal. IMPRESSION: 1. No acute cardiopulmonary disease. Reviewed, dictated and finalized at location A. FITTER WELDER
--- NOTE | ~2024-11-13 | XR_ITS ---
Portable chest x-ray Comparison: 11/13/2024 Clinical History: Shortness of breath Findings: There is mild discoid left basilar atelectasis. Right lung clear. Cardiomediastinal silho uette is stable. Bones and soft tissues are unremarkable. Impression: Discoid left basilar atelectasis, less likely pneumonia. Right lung clear. Reviewed, dictated and finalized at location . K WRITING MACHINE OPERATOR Impression: Discoid left basilar atelectasis, less likely pneumonia. Right lung clear.
--- NOTE | ~2024-11-13 | CT_ITS ---
EXAMINATION: CTA chest PE protocol DATE: 11/16/2024 11:10 INDICATION: Hypoxia TECHNIQUE: Computed tomography (CT) pulmonary angiogram of the chest was performed with 100 mL Omnipa que-350 intravenous contrast. Additional 3D reconstructions utilizing coronal maximum intensity proje ction (MIP) were performed. Automated exposure control and iterative reconstruction technique were em ployed. The dose-length product was 1026.46 mGy-cm. COMPARISON: Chest CT dated 09/15/2024 FINDINGS: No pulmonary embolism. Mild emphysema. Discoid atelectasis in the bilateral lower lobes. There is als o consolidation dependently at the posterior sulci of the bilateral lower lobes which demonstrates re latively uniform parenchymal enhancement and would favor atelectasis over pneumonia. There is mucous plugging in several of the bilateral lower lobar segmental and subsegmental bronchi. No significant i nterval change in a 2.5 x 1.7 cm nodular opacity with lobular margins and central cavitation at the s uperior segment of the right lower lobe. Additional smaller nodules previously seen in the left upper lobe and lingula have resolved. Heart size is normal. No pericardial effusion. Thoracic aorta is nor mal in caliber with no dissection. No pathologically enlarged thoracic lymphadenopathy. Calcified gal lstones as well as some mural calcification along the posterior decompressed gallbladder. Minimal tho racic spondylosis. IMPRESSION: 1. No pulmonary embolism. 2. No significant change in a 2.5 x 1.7 cm nodule with lobular margins and some central cavitation in the superior segment of the right lower lobe which could be infectious, inflammatory or malignant in etiology. Recommend routine CT-guided biopsy. 3. Mild emphysema. 4. Scattered bronchial mucous plugging in the bilateral lower lobes consistent with bronchitis with d ependent consolidation in the dependent aspect of the lower lobes and favor secondary atelectasis ove r pneumonia. 5. 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 Reviewed, dictated and finalized at location A. TIONAL ADVISER IMPRESSION: 1. No pulmonary embolism. 2. No significant change in a 2.5 x 1.7 cm nodule with lobular margins and some central cavitation in the superior segment of the right lower lobe which could be infectious, inflammatory or malignant in etiology. Recommend routine CT-tang ded biopsy. 3. Mild emphysema. 4. Scattered bronchial mucous plugging in the bilateral lower lobes consistent with bronchitis with dependent consolidation in the dependent aspect of the low er lobes and favor secondary atelectasis over pneumonia. 5. Cholelithiasis and mural calcification consistent with porcelain gallbladder .
--- OUTSIDE RECORDS SUMMARY | 2024-11-13 13:35 | XMS_ITS | Clinical Summary ---
Author Organization [facility] Address [address] [place] [id number] Phone [email or web address] Care Team Providers Care Regional Vice President Life Sales Name Role Phone Unavailable Primary Care Provider Unavailabl e Allergies Active Allergy Reactions Criticality Noted Date Comments Codeine 10/07/2021 Lucid dreaming, itchy ears Medications aspirin (ST SHIRA) 81 MG EC tablet Take 81 mg by mouth 1 (one) time each day. Active [place]-3 Fatty Acids (Fish Oil) 1000 MG capsule [...] complication, without long-term current use of insulin ([facility]) Take 1 tablet (500 mg total) by mouth in the morning and 1 tablet (500 mg total) in the evening. Take with meals. 180 tablet 4 03/18/20 25 Active Active Problems Problem Noted Date Diagnosed Date Plantar fasciitis, left 06/14/2023 Assessment & Plan (09/27/2023 3:45 PM EFFICIENCY MINER): Has been following with podiatry Doing much [...] Readings from Last 1 Encounters: 01/03/24 43.87 kg/m and you will need to work hard on reducing carbohydrates and total calories. You may use the free smart phone andrews [employer] to help track calories and try to reduce by 15% every 4 weeks. You should also work on reducing your total portion sizes. You should be exercising about 30 minutes every day with cardio work outs. You should strive to avoid regular soda, juices and alcohol. Assessment & Plan (09/27/2023 3:44 PM EFFICIENCY MINER): Pt has an elevated BMI over 30 Body mass index is BMI Readings from Last 1 Encounters: 09/27/23 42.40 kg/m and you will need to work hard on reducing carbohydrates and total calories. You may use the free smart phone andrews [employer] to help track calories and try to [...] Readings from Last 1 Encounters: 06/14/23 40.92 kg/m and you will need to work hard on reducing carbohydrates and total calories. You may use the free smart phone [employer]rews [employer] to help track calories and try to [...] Try to do moderate activity at least 2 hours a week. Or try to do vigorous activity at least 1 hours a week. You may want to [...] before you use any other medicines, including acoo-xph-guohhga medicines. Make sure your doctor knows all [...] Try to do moderate activity at least 2 hours a week. Or try to do vigorous activity at least 1 hours a week. You may want to [...] before you use any other medicines, including vuvp-xgg-lvitsov medicines. Make sure your doctor knows all [...] appt Assessment & Plan (10/05/2023 11:03 AM EFFICIENCY MINER): Eat heart-healthy foods. Eat fruits, vegetables, whole [...] Try to do moderate activity at least 2 hours a week. Or try to do vigorous activity at least 1 hours a week. You may want to [...] before you use any other medicines, including vbta-dcp-sozopaw medicines. Make sure your doctor knows all [...] vomiting. Assessment & Plan (09/27/2023 3:42 PM EFFICIENCY MINER): Eat heart-healthy foods. Eat fruits, vegetables, whole [...] Try to do moderate activity at least 2 hours a week. Or try to do vigorous activity at least 1 hours a week. You may want to [...] before you use any other medicines, including ilfu-evk-dwkpzuf medicines. Make sure your doctor knows all [...] Try to do moderate activity at least 2 hours a week. Or try to do vigorous activity at least 1 hours a week. You may want to [...] before you use any other medicines, including jalv-oyw-emgdhfl medicines. Make sure your doctor knows all [...] meds Assessment & Plan (10/05/2023 11:01 AM EFFICIENCY MINER): Pt has h/o HTN and will need [...] meds Assessment & Plan (09/27/2023 3:43 PM EFFICIENCY MINER): Pt has h/o HTN and will need [...] (07/06/2021): Assessment & Plan (09/27/2023 3:43 PM EFFICIENCY MINER): Encouraged to quit smoking - he is [...] prn. Assessment & Plan (10/05/2023 11:00 AM EFFICIENCY MINER): Meds dispensed. Take as prescribed. Patient was counseled on medication risk, side effects, and possible complications. Patient was counseled on how to properly take the medication and to call with any adverse reactions. Patient stated understanding. Stay active. Watch diet. Follow up prn. Assessment & Plan (09/27/2023 3:43 PM EFFICIENCY MINER): Meds dispensed. Take as prescribed. Patient was [...] treatment/referral Assessment & Plan (09/27/2023 3:42 PM EFFICIENCY MINER): Uses diclofenac daily. Declines further treatment/referral Other forms of dyspnea 02/02/2021 Overview (07/06/2021): Resolved Problems Problem Noted Date Diagnosed Date Resolved Date Localized swelling, mass and lump, neck 07/08/2021 06/14/2023 Overview (07/12/2021): Acute sialoadenitis 06/11/2021 06/14/20 Overview (07/06/2021): Vitamin D deficiency, unspecified 04/21/2021 [...] (HAVRIX-ADULT VA QTA-ADULT) (CVX-52) 09/08/2016,01/22/2016 Hepatitis B (ENGERIX-B,RECOM BIVAX HB) (CVX-43) 09/08/2016,03/10/2016,01/22/2016 Influenza multi-dose VIAL (A fluria,Fluzone) trivalent (CVX-141) [...] Sex Assigned at Male 10/01/2021 1:36 PM EFFICIENCY MINER Legal Sex Male 10:47 AM CDT Gender Identity Male 10/01/2021 1:36 PM EFFICIENCY MINER Sexual Orientation Not on file Last Filed Vital Signs Vital Sign Reading Time Taken Comments Blood Pressure 144/74 03/18/2024 9:34 AM CDT Pulse 103 03/18/2024 9:34 AM CDT Temperature 36.1 C (96.9 F) 03/18/2024 9:34 AM CDT Respiratory Rate 20 03/18/2024 9:34 AM CDT [...] of 2 - PCV) 03/18/2025 Postponed from 02/12/1988 (Member Refused) Tetanus Diphtheria and Pertussis Immunization (2 - Td or Tdap) 03/10/2026 03/10/2016 Hepatitis A Immunization Aged Out 016, [...] complete this topic Zoster Immunization Discontinued Insurance [facility] NO COPAY NB
--- OUTSIDE RECORDS SUMMARY | 2024-11-13 13:35 | XMS_ITS | Clinical Summary ---
Author Organization [facility] Address [address] [place] [id number] Care Team Providers Care Child Abuse Worker Name Role Phone Lena Haq Primary Care Provider [phone] Social History Tobacco Use Types Packs/Day Years [...] Vaccines (1 of 2) 2019 COVID-19 Vaccine (2023-2 5 season) 2024 Influenza Adult (#1) 2024 Meningococcal B Vaccine Aged Out No l onger eligible based on patient's age to complete this topic Meningococcal Vaccine Aged Out No myrna andrea [...] age to complete this topic Care Teams Child Abuse Worker Relationship Specialty Start Date End Date Lena Haq FNP [address] [place] [address] PCP - General NURSE PRACTITIONER 03/22/24
--- NOTE | 2024-11-13 13:49 | ECG_ITS ---
Test Date: 2024-11-13 13:54:35 Measurements Intervals [place] Rate: 93 P: 68 IN: 157 QRS: 78 QRSD: 102 T: 72 QT: 346 QTc: 432 Interpretive Statements SINUS RHYTHM DELAYED PRECORDIAL R/S TRANSITION BASELINE ARTIFACT- I, II, III, AVR, V4-V6 BORDERLINE ECG Compared to ECG 09/15/2024 15:13:12 No significant changes Electronically Signed On 11-13-2024 14:01:26 DIGITAL CIRCUIT DESIGNER by James Casas D.O.
[2024-11-13] MEDS: IPRATROPIUM BR 0.02% INH SOLN 0.5 MG/2.5 ML VIAL 1.5 MG INHALATION (14:10)
[2024-11-13] MEDS: ALBUTEROL SULFATE NEB 2.5 MG/3 ML INH 15 MG INHALATION (14:10)
[2024-11-13 14:23] LABS: Basophils Absolute Auto 0.1 K/mm3 (0.0-0.1); Basophils Percent Auto 0.6 % (0.2-1.2); Eosinophils Absolute Auto 0.9 K/mm3 (0-0.3); Eosinophils Percent Auto 10.4 % (0-4.4); Hematocrit 51.7 % (42.0-52.0); Hemoglobin 16.4 g/dL (14.0-18.0); Immature Granulocyte Absolute 0.03 K/mm3 (0.00-0.031); Immature Granulocyte Percent A 0.4 % (0-0.5); Lymphocytes Absolute Auto 1.48 K/mm3 (0.9-3.2); Mean Corpuscular HGB Conc 31.7 g/dl (32-36); Mean Corpuscular Hemoglobin 30.3 pg (26-34); Mean Corpuscular Volume 95.4 fl (80-100); Monocytes Absolute Auto 0.7 K/mm3 (0.1-0.6); Monocytes Percent Auto 8.1 % (2.6-8.5); Neutrophils Absolute Auto 5.1 K/mm3 (1.3-6.7); Neutrophils Percent Auto 62.5 % (45.5-73.1); Platelet Count Result 222 k/mm3 (150-375); Red Blood Count 5.42 M/mm3 (4.6-6.20); Red Cell Distribution Width 14.2 % (11.5-14.5); White Blood Count 8.2 K/mm3 (4.5-10.0)
--- NOTE | 2024-11-13 14:37 | ED.SOB ---
HPI - SOB/Dyspnea General Chief Complaint: Shortness of Breath/Dyspnea Stated Complaint: cany breath Time Seen by Provider: 11/13/24 13:52 History of Present Illness HPI Narrative: Patient is a 54-year-old male who presents ER with shortness of breath. Worsening over last 2 days. Associated with productive cough. Still smokes 5 cigarettes a day but has not smoked over last 2 days. No fevers or chills. Wears 4 L of oxygen with rest and exertion but has had to turn it up to 6 any L. He still having shortness of breath. No chest pain or chest pressure. No known sick contacts. Related Data Allergies Allergy/AdvReac Type Severity Reaction Status Date / Time codeine AdvReac Unknown nightmares, Verified 11/13/24 15:24 extreme internal ear itching Review of Systems Review of Systems: All systems reviewed & are unremarkable except as noted in HPI and below Constitutional: Constitutional: Reports no additional constitutional complaints ENT: Reports system reviewed and no additional complaints, except as documented Cardiovascular: Cardiovascular: Reports no additional cardiovascular complaints Respiratory: Respiratory: Reports no additional respiratory complaints Gastrointestinal: Gastrointestinal: Reports no additional gastrointestinal complaints [facility] Past Medical History Medical History Chronic obstructive pulmonary disease Hyperlipidemia Hypertension Seasonal allergies Rheumatoid arthritis Sleep apnea Seizures Tobacco use Surgical History Surgical History (Updated 11/13/24 @ 16:39 by Maranda Ulloa PA-C) History of right knee surgery Has had 5 surgeries total including ACL and meniscus repairs History of left knee surgery 1991-Dr. Erwin, meniscus repair, repair meniscus again by Dr. Mccloud Family History Family History (Updated 09/16/24 @ 03:20 by Felix Adams RN) Mother Malignant neoplasm Other Arthritis Diabetes mellitus Hypertension Social History Social History Social History: Surrogate medical decision maker: Code status: Full code. Smoking packs per day: 1.5 Smoking cigarettes per day: 30.0 Years smoked: 45 Smoking pack-years: 67.50 Smoking status: Current every day smoker Tobacco type: cigarettes Second hand tobacco smoke exposure: Yes Alcohol intake: never Alcohol use details: rare Substance use: current Substance use type: marijuana Last use: 09/12/24 Do You Feel Safe in your Home?: Yes Lack of Transportation: No Lack of Food: Never True Current Housing: I Have Housing Concerned About Future Housing: No Difficulty Paying Gas/Electric Bills: No Difficulty Paying for Meds: No Currently Unemployed: No Education: High School Diploma/GED Difficulty w/ Childcare or Family Care: No Living arrangements: with family Occupation/Education: occupation Spiritual care concerns: No Exam Narrative: GENERAL: Chronically ill-appearing, well-nourished, and in no acute distress. HEAD: Normocephalic, atraumatic. ENT: Mucous membranes moist. NECK: Supple. CHEST: Coarse inspiratory and expiratory wheezing bilaterally with mild distress. HEART: Regular rate and rhythm. Normal peripheral pulses. ABDOMEN: Soft, nontender, nondistended. EXTREMITIES: Normal range of motion. No edema. SKIN: Warm, dry, no rash. NEURO: Alert and oriented x3. PSYCH: Normal mood and affect. Course Course Emergency Course: Improvement in lung sounds with breathing treatment however patient still getting hypoxic on home O2. ABG with hypercapnia. Will place on high-flow therapy. IV steroids and scheduled breathing treatments ordered. Hospitalist contacted for admission. Vital Signs Vital signs: Vital Signs Temperature 97.6 F 11/13/24 13:38 Pulse Rate 90 11/13/24 13:38 Respiratory Rate 18 11/13/24 13:38 Pulse Oximetry 87 L 11/13/24 13:38 Temperature 97.6 F 11/13/24 15:10 Pulse Rate 95 11/13/24 15:10 Respiratory Rate 18 11/13/24 15:10 Blood Pressure 142/75 H 11/13/24 15:10 Pulse Oximetry 99 11/13/24 15:39 Oxygen Delivery Nasal Cannula 11/13/24 15:39 Oxygen Flow Rate 8 11/13/24 15:39 MDM - SOB/Dyspnea Lab Data 11/13/24 14:14 11/13/24 14:14 Labs: Lab Results 11/13/24 Range/Units 14:14 WBC 8.2 (4.5-10.0) K/mm3 RBC 5.42 (4.6-6.20) M/mm3 Hgb 16.4 (14.0-18.0) g/dL Hct 51.7 (42.0-52.0) % MCV 95.4 (80-100) fl MCH 30.3 (26-34) pg MCHC 31.7 L (32-36) g/dl RDW 14.2 (11.5-14.5) % Plt Count 222 (150-375) k/mm3 MPV 10.0 (7.4-10.4) fl Immature Gran % (Auto) 0.4 (0-0.5) % Neut % (Auto) 62.5 (45.5-73.1) % Lymph % (Auto) 18.0 L (18.3-44.2) % [place] % (Auto) 8.1 (2.6-8.5) % Eos % (Auto) 10.4 H (0-4.4) % Baso % (Auto) 0.6 (0.2-1.2) % Lymph # (Auto) 1.48 (0.9-3.2) K/mm3 [place] # (Auto) 0.7 H (0.1-0.6) K/mm3 Eos # (Auto) 0.9 H (0-0.3) K/mm3 Baso # (Auto) 0.1 (0.0-0.1) K/mm3 Abs Immat Gran (auto) 0.03 (0.00-0.031) K/mm3 Absolute Neuts (auto) 5.1 (1.3-6.7) K/mm3 Absolute Nucleated RBC 0.000 (0.0-0.012) K/mm3 Nucleated RBC % 0.0 (0.0-0.2) % Sodium 137 (137-145) mmol/L Potassium 5.0 (3.4-5.0) mmol/L Chloride 95 L (98-107) mmol/L Carbon Dioxide 38 H (22-30) mmol/L Anion Gap 4 (4-12) mmol/L BUN 18 D (9-20) mg/dL Creatinine 0.64 L (0.7-1.3) mg/dL Estim Creat Clear Calc 190 ml/min Estimated GFR > 60 (59 - ) Glucose 143 H (65-110) mg/dL Calcium 9.0 (8.4-10.2) mg/dL Total Bilirubin 0.8 (0.2-1.3) mg/dL AST 24 (17-59) U/L ALT 24 (6-50) U/L Alkaline Phosphatase 92 (38-126) U/L NT-Pro-B Natriuret Pep < 20 (19.9-100) pg/mL Total Protein 8.0 (6.3-8.2) g/dL Albumin 4.0 (3.5-5.1) g/dL Influenza A (RT-PCR) Negative (Negative) Influenza B (RT-PCR) Negative (Negative) RSV (RT-PCR) Negative (Negative) SARS-CoV-2 RNA (RT-PCR) Negative (Negative) Imaging Data Radiologist's impression: ITS Impressions Chest X-Ray 11/13/24 15:03 IMPRESSION: 1. No acute cardiopulmonary disease. ECG Data EKG #1: ECG completion date: 11/13/24 ECG completion time: 13:54 EKG Interpretation: normal rate (93), sinus rhythm, no ectopy, non-specific ST changes, normal QRS, normal QT and NL axis Critical Care Time Critical Care Time Critical Care Time: Yes Total Critical Care Time: 35 Discharge Plan Discharge Clinical Impression: COPD exacerbation, Hypercapnia Patient Disposition: Still a Patient Condition: Stable
--- OUTSIDE RECORDS SUMMARY | 2024-11-13 14:38 | XMS_ITS | Clinical Summary ---
Author Organization [facility] Address [address] [place] [id number] Care Team Providers Care Cinder Dump Crane Operator Name Role Phone Lena Haq Primary Care Provider [phone] Social History Tobacco Use Types Packs/Day Years [...] age to complete this topic Care Teams Cinder Dump Crane Operator Relationship Specialty Start Date End Date Lena Haq FNP [address] [place] [address] PCP - General NURSE PRACTITIONER 03/22/24
--- OUTSIDE RECORDS SUMMARY | 2024-11-13 14:38 | XMS_ITS | Clinical Summary ---
Author Organization [facility] Address [address] [place] [id number] Phone [email or web address] Care Team Providers Care Chain Tender Name Role Phone Unavailable Primary Care Provider Unavailabl e Allergies Active Allergy Reactions Criticality Noted Date Comments Codeine 10/07/2021 Lucid dreaming, itchy ears Medications aspirin (ST SHIRA) 81 MG EC tablet Take 81 mg by mouth 1 (one) time each day. Active [place]-3 Fatty Acids (Fish Oil) 1000 MG capsule [...] complication, without long-term current use of insulin ([facility]) Take 1 tablet (500 mg total) by mouth in the morning and 1 tablet (500 mg total) in the evening. Take with meals. 180 tablet 4 03/18/20 25 Active Active Problems Problem Noted Date Diagnosed Date Plantar fasciitis, left 06/14/2023 Assessment & Plan (09/27/2023 3:45 PM VASCULAR RADIOLOGIST): Has been following with podiatry Doing much [...] may use the free smart phone [employer]rews [employer] to help track calories and try to reduce by 15% every 4 weeks. You should also work on reducing your total portion sizes. You should be exercising about 30 minutes every day with cardio work outs. You should strive to avoid regular soda, juices and alcohol. Assessment & Plan (09/27/2023 3:44 PM VASCULAR RADIOLOGIST): Pt has an elevated BMI over 30 Body mass index is BMI Readings from Last 1 Encounters: 09/27/23 42.40 kg/m and you will need to work hard on reducing carbohydrates and total calories. You may use the free smart phone [employer]rews [employer] to help track calories and try to [...] may use the free smart phone [employer]rew[employer] to help track calories and try to [...] before you use any other medicines, including svqs-awe-wvbakuo medicines. Make sure your doctor knows all [...] before you use any other medicines, including qwfz-toe-ceavtkd medicines. Make sure your doctor knows all [...] appt Assessment & Plan (10/05/2023 11:03 AM VASCULAR RADIOLOGIST): Eat heart-healthy foods. Eat fruits, vegetables, whole [...] before you use any other medicines, including euav-hbi-obrmhiy medicines. Make sure your doctor knows all [...] vomiting. Assessment & Plan (09/27/2023 3:42 PM VASCULAR RADIOLOGIST): Eat heart-healthy foods. Eat fruits, vegetables, whole [...] before you use any other medicines, including wvnd-bzi-ailczhd medicines. Make sure your doctor knows all [...] before you use any other medicines, including jxmk-gxe-yluhugg medicines. Make sure your doctor knows all [...] meds Assessment & Plan (10/05/2023 11:01 AM VASCULAR RADIOLOGIST): Pt has h/o HTN and will need [...] meds Assessment & Plan (09/27/2023 3:43 PM VASCULAR RADIOLOGIST): Pt has h/o HTN and will need [...] (07/06/2021): Assessment & Plan (09/27/2023 3:43 PM VASCULAR RADIOLOGIST): Encouraged to quit smoking - he is [...] prn. Assessment & Plan (10/05/2023 11:00 AM VASCULAR RADIOLOGIST): Meds dispensed. Take as prescribed. Patient was counseled on medication risk, side effects, and possible complications. Patient was counseled on how to properly take the medication and to call with any adverse reactions. Patient stated understanding. Stay active. Watch diet. Follow up prn. Assessment & Plan (09/27/2023 3:43 PM VASCULAR RADIOLOGIST): Meds dispensed. Take as prescribed. Patient was [...] treatment/referral Assessment & Plan (09/27/2023 3:42 PM VASCULAR RADIOLOGIST): Uses diclofenac daily. Declines further treatment/referral Other [...] Sex Assigned at Male 10/01/2021 1:36 PM VASCULAR RADIOLOGIST Legal Sex Male 10:47 AM CDT Gender Identity Male 10/01/2021 1:36 PM VASCULAR RADIOLOGIST Sexual Orientation Not on file Last Filed [...] complete this topic Zoster Immunization Discontinued Insurance [facility] NO COPAY NB
[2024-11-13 14:44] LABS: NT Pro B Type Natriuretic Pept < 20 pg/mL (19.9-100)
[2024-11-13 14:46] LABS: Alanine Aminotransferase 24 U/L (6-50); Alkaline Phosphatase 92 U/L (38-126); Anion Gap 4 mmol/L (4-12); Aspartate Amino Transferase 24 U/L (17-59); Bilirubin,Total 0.8 mg/dL (0.2-1.3); Blood Urea Nitrogen 18 mg/dL (9-20); Carbon Dioxide 38 mmol/L (22-30); Chloride 95 mmol/L (98-107); Estimated CRCL calculation 190 ml/min; Estimated Glomerular Filt Rate > 60; Glucose 143 mg/dL (65-110); Sodium 137 mmol/L (137-145)
[2024-11-13 15:04] LABS: Influenza A QL RT-PCR Negative (Negative); Influenza B QL RT-PCR Negative (Negative); RSV RNA, RT-PCR Negative (Negative); SARS-CoV-2 RNA PCR Negative (Negative)
[2024-11-13] MEDS: methylPREDNISolone SOD SUCC 125 MG VIAL IV PUSH (15:55)
--- NOTE | 2024-11-13 16:30 | P.HP_ITS ---
H&P: HPI History of Present Illness Date/Time: 11/13/24 16:30 Chief Complaint: Shortness of breath. Narrative: This is a pleasant 54-year-old male smoker with chronic respiratory failure on home oxygen at 4 L, chronic obstructive pulmonary disease, obstructive sleep apnea, hypertension, hyperlipidemia, and rheumatoid arthritis who presented to the emergency department via private vehicle for evaluation of shortness of breath. He gives a 2 day history of increasing dyspnea on lesser and lesser exertion and productive cough. He is monitoring his SpO2 which has been running in the low 80s as opposed to his usual upper 80s and he turned his oxygen up to 6 L which seemed to help for short period of time. He has been using his rescue inhaler with lesser and lesser benefit; he does not have an active prescription for nebulizers at home. reports that he seemed to be increasingly short of breath, somnolent, and confused this morning and she brought him in today for evaluation. He denies fever, chills, sweats, pleuritic pain, nausea, vomiting, diarrhea, edema, and calf pain. In the ED: SpO2 was 87% on arrival. The remainder of his vital signs were stable. ABG showed a pH of 7.307, pCO2 69.6, PO2 65.4, and in HC03 of 34.0. Respiratory panel was negative. He received a continuous nebulizer treatment and methylprednisolone 125 mg IV. He was started on Airvo and is being admitted in this setting for further treatment. Review of Systems Review of Systems: 12 systems were reviewed and are negativ e except for as per HPI. [facility] Past Medical History Medical History Chronic obstructive pulmonary disease Hyperlipidemia Hypertension Seasonal allergies Rheumatoid arthritis Sleep apnea Seizures Tobacco use Surgical History Surgical History History of right knee surgery Has had 5 surgeries total including ACL and meniscus repairs History of left knee surgery 1991-Dr. Erwin, meniscus repair, repair meniscus again by Dr. Mccloud Family History Family History Mother Malignant neoplasm Other Arthritis Diabetes mellitus Hypertension Social History Social History (Updated 11/13/24 @ 23:02 by Maranda Ulloa PA-C) Social History: Surrogate medical decision maker: Yenifer Tadeo, spouse. Code status: Full code. Smoking packs per day: 1.5 Smoking cigarettes per day: 30.0 Years smoked: 45 Smoking pack-years: 67.50 Smoking status: Current every day smoker Tobacco type: cigarettes Second hand tobacco smoke exposure: Yes Alcohol intake: never Alcohol use details: rare Substance use: current Substance use type: marijuana Last use: 09/12/24 Do You Feel Safe in your Home?: Yes Lack of Transportation: No Lack of Food: Never True Current Housing: I Have Housing Concerned About Future Housing: No Difficulty Paying Gas/Electric Bills: No Difficulty Paying for Meds: No Currently Unemployed: No Education: High School Diploma/GED Difficulty w/ Childcare or Family Care: No Living arrangements: with family Occupation/Education: occupation Spiritual care concerns: No Meds Home Medications and Allergies Home Medications ?Medication ?Instructions ?Recorded ?Confirmed ?Type albuterol sulfate 90 mcg/actuation 2 inh inhalation Q4H PRN shortness 09/20/24 11/13/24 Rx breath activated powder inhaler of breath or wheezing #1 ea atorvastatin 40 mg tablet 80 mg (2 x 40 mg) PO HS #30 tabs 09/20/24 11/13/24 Rx fluticasone 250 mcg-salmeterol 50 1 inh inhalation Q12H #60 ea 09/20/24 11/13/24 Rx mcg/dose blistr powdr for inhalation (Advair Diskus) ipratropium bromide 0.02 % 2.5 ml inhalation Q6H PRN 09/20/24 11/13/24 Rx solution for inhalation shortness of breath or wheezing #75 mL levofloxacin 750 mg tablet 750 mg PO DAILY #3 tabs 09/20/24 11/13/24 Rx lisinopril 30 mg tablet 30 mg PO DAILY #30 tabs 09/20/24 11/13/24 Rx nebulizer and compressor #1 ea 09/20/24 11/13/24 Rx nicotine 21 mg/24 hr daily 1 patch transdermal DAILY #30 ea 09/20/24 11/13/24 Rx transdermal patch (Nicoderm CQ) tiotropium bromide 18 mcg capsule 1 cap inhalation DAILY #30 09/20/24 11/13/24 Rx with inhalation device (Spiriva inhalations with HandiHaler) Allergies Allergy/AdvReac Type Severity Reaction Status Date / Time codeine AdvReac Unknown nightmares, Verified 11/13/24 15:24 extreme internal ear itching Vital Signs Vital Signs - 24 hr 11/13/24 13:38 11/13/24 13:50 11/13/24 14:21 Temperature 97.6 F Pulse Rate 90 93 Respiratory Rate 18 20 Blood Pressure Pulse Oximetry 87 L 91 Oxygen Delivery Nasal Cannula Oxygen Flow Rate 6 11/13/24 15:10 11/13/24 15:10 11/13/24 15:39 Temperature 97.6 F Pulse Rate 95 Respiratory Rate 18 Blood Pressure 142/75 H Pulse Oximetry 97 96 99 Oxygen Delivery Nasal Cannula Nasal Cannula Nasal Cannula Oxygen Flow Rate 8 8 8 11/13/24 16:00 Temperature Pulse Rate Respiratory Rate Blood Pressure Pulse Oximetry 90 Oxygen Delivery Nasal Cannula Oxygen Flow Rate 4 Exam Narrative: General: Nontoxic-appearing male in the semi-Allred position in bed in no acute distress. Weight: 160 kg. BMI: 39.7. HEENT: PERRL, EOMI. Sclera anicteric. Oral mucosa moist. Neck: Supple. No JVD. Respiratory: Currently on Airvo. He is able to speak in full sentences. Lung sounds are significantly diminished throughout with diffuse end-expiratory wheezing. Cardiovascular: Regular rate and rhythm with S1-S2. Gastrointestinal: Abdomen is soft, nontender, and nondistended with positive bowel sounds. Skin: Warm and dry. No rash or lesions on limited exam. Extremities: No cyanosis, clubbing, or significant edema. Radial and pedal pulses intact. No palpable knots or cords. Negative Sima sign bilaterally. Neurological: Alert and oriented. Cranial nerves 2-12 are grossly intact. No gross focal deficits to casual conversation. Psychiatric: Pleasant and cooperative with normal mood and affect. Judgment and insight intact. H&P: Results Labs Labs: Short CBC 11/13/24 Range/Units 14:14 WBC 8.2 (4.5-10.0) K/mm3 Hgb 16.4 (14.0-18.0) g/dL Hct 51.7 (42.0-52.0) % Plt Count 222 (150-375) k/mm3 BMP 11/13/24 14:14 Sodium 137 Potassium 5.0 Chloride 95 L Carbon Dioxide 38 H BUN 18 D Creatinine 0.64 L Glucose 143 H Calcium 9.0 Liver Function 02/19/25 Range/Units 14:14 Total Bilirubin 0.8 (0.2-1.3) mg/dL AST 24 (17-59) U/L ALT 24 (6-50) U/L Alkaline Phosphatase 92 (38-126) U/L Albumin 4.0 (3.5-5.1) g/dL Impressions Chest X-Ray 11/13/24 15:03 IMPRESSION: 1. No acute cardiopulmonary disease. ABG ABG results: 11/13/24 11/13/24 16:43 18:16 Puncture Site Left radial Left brachial ABG pH 7.307 L 7.324 L ABG pCO2 69.6 H* 61.3 H* ABG pO2 65.4 L 80.1 ABG PO2/FiO2 Ratio 1.36 2.67 ABG HCO3 34.0 H 31.2 H ABG O2 Saturation 90.3 L 94.7 L ABG O2 Content 20.8 20.7 ABG Base Excess 4.9 3.2 A-a Gradient 198.2 61.8 Oxyhemoglobin 91.3 94.3 Carboxyhemoglobin 1.0 Reduced Hemoglobin 7.5 H Total Hemoglobin 16.2 15.6 O2 Delivery Device Nasal cannula High flow therapy O2 Liters/Min 7.0 60.0 FiO2 48 30 Assessment and Plan Assessment and plan (1) Acute respiratory failure with hypoxia and hypercapnia: Code(s): J96.01 - Acute respiratory failure with hypoxia; J96.02 - Acute respiratory failure with hypercapnia Status: Acute (2) COPD exacerbation: Code(s): J44.1 - Chronic obstructive pulmonary disease with (acute) exacerbation Status: Acute (3) Hypertension: Code(s): I10 - Essential (primary) hypertension Status: Acute (4) Hyperlipidemia: Code(s): E78.5 - Hyperlipidemia, unspecified Status: Acute (5) Obstructive sleep apnea: Code(s): G47.33 - Obstructive sleep apnea (adult) (pediatric) Status: Acute (6) Tobacco use: Code(s): Z72.0 - Tobacco use Status: Acute Plan The patient presented to the emergency department for evaluation of increasing cough and shortness of breath the last couple of days with some confusion this morning as detailed in HPI. Labs, imaging, EKG, and all reports were personally reviewed. Clinically as a COPD exacerbation has been started on scheduled bronchodilators and Solu-Medrol. Given increasing shortness of breath and productive cough, he has also been started on antibiotics. He has acute on chronic hypoxia and hypercapnia and has improved with Airvo. When hospitalized in August 2024 he did much better on AVAPS which will be ordered as well. Smoking cessation is imperative and was discussed. Nicotine patch ordered per patient request. Blood pressures are stable. His home medications will be reviewed and resumed as appropriate. Findings and treatment plan were discussed with the patient. Questions were solicited and answered to satisfaction. The patient's medical management will be taken over by the hospitalist team in a.m. Quality VTE Prophylaxis VTE prophylaxis: pharmacologic ordered The patient has been admitted under observation status. Hospitalist MIPS Advance Care Plan I have confirmed that the patient's Advanced Care Plan is present, code status is documented, or surrogate decision maker is listed in patient medical record.: Yes Medication Reconciliation I have utilized all available resources to obtain, update and review the patients current medications (includes all prescriptions, OTC, herbals, cannabis, and nutritional supplements).: Yes
[2024-11-13 16:46] LABS: Alveolar/Arterial O2 Gradient 198.2 mmHg; Base Excess ABG 4.9 mEq/l (+/-2.0); Fractional Inspired Oxygen 48 %; Methemoglobin ABG 0.2 %THb (0-1.5); Oxygen Content ABG 20.8 %vol (16.0-22.0); Oxygen Saturation ABG 90.3 % (95.0-100.0); Oxyhemoglobin 91.3 % THb (90.0-100.0); PO2 ABG 65.4 mmHg (80.0-100.0); PO2 FiO2 Ratio Arterial Blood 1.36 %; Reduced Hemoglobin 7.5 %THb (0-5.0); Total Hemoglobin 16.2 g/dL (12.0-18.0); pH ABG 7.307 (7.350-7.450)
[2024-11-13 16:47] LABS: Device NASAL CANNULA; Modified Allen's Test Pass; PCO2 ABG 69.6 mmHg (35.0-45.0); Site Drawn LEFT RADIAL
[2024-11-13 18:19] LABS: Alveolar/Arterial O2 Gradient 61.8 mmHg; Base Excess ABG 3.2 mEq/l (+/-2.0); Fractional Inspired Oxygen 30 %; HCO3 ABG 31.2 mEq/l (22.0-26.0); Oxygen Content ABG 20.7 %vol (16.0-22.0); Oxygen Saturation ABG 94.7 % (95.0-100.0); Oxyhemoglobin 94.3 % THb (90.0-100.0); PO2 ABG 80.1 mmHg (80.0-100.0); PO2 FiO2 Ratio Arterial Blood 2.67 %; Total Hemoglobin 15.6 g/dL (12.0-18.0); pH ABG 7.324 (7.350-7.450)
[2024-11-13 18:21] LABS: Device HIGH FLOW THERAPY; PCO2 ABG 61.3 mmHg (35.0-45.0); Site Drawn LEFT BRACHIAL
[2024-11-13] MEDS: NICOTINE (*PBKC) 21 MG PATCH 1 PATCH TRANSDERM (19:50)
[2024-11-13] MEDS: methylPREDNISolone SOD SUCC 125 MG VIAL 60 MG IV PUSH (23:18)
[2024-11-13] MEDS: AZITHROMYCIN 250 MG TABLET 500 MG PO (23:19)
[2024-11-13 23:23] LABS: Glucose Point of Care 366 mg/dl (65-105)
[2024-11-13 23:37] LABS: Device HIGH HUMIDITY; Fractional Inspired Oxygen 30 %; HCO3 VBG 29.1 mEq/l (24.0-30.0); PCO2 VBG 48.6 mmHg (42.0-48.0); PO2 VBG 83.3 mmHg (35.0-45.0); pH VBG 7.395 (7.300-7.400)
--- NOTE | 2024-11-13 23:55 | PC.NURSE ---
This patient, Ronnie Tadeo, was admitted to IMU Room 210-01. Patient/family oriented to hospital policies and general routines including ID bracelet, bed and alarms, visiting hours, pain management, procedures, bathroom and other care routines, personal items, smoking policy, room service/diet, and visiting hours. Information on how to activate the Rapid Response Team has been discussed. Patient/Family are encouraged to report perceived risks to care and to ask questions if they do not understand what they are told or what they should do.
[2024-11-14] VITALS (26 sets, daily range): BP systolic 107–146; BP diastolic 59–72; PULSE 79–113; RESP 14–23; TEMP 36.5–37; O2SAT 94–97; BMI 39.2
[2024-11-14] MEDS: IPRATROPIUM 0.5 MG/ALBUTEROL SULFATE 2.5 MG AMPUL.NEB 3 ML INHALATION ×4 (03:38→20:34)
[2024-11-14 04:49] LABS: Hematocrit 47.5 % (42.0-52.0); Hemoglobin 15.1 g/dL (14.0-18.0); Mean Corpuscular HGB Conc 31.8 g/dl (32-36); Mean Corpuscular Hemoglobin 30.2 pg (26-34); Mean Platelet Volume 9.8 fl (7.4-10.4); Platelet Count Result 208 k/mm3 (150-375); Red Cell Distribution Width 14.1 % (11.5-14.5); White Blood Count 9.5 K/mm3 (4.5-10.0)
[2024-11-14 05:04] LABS: Anion Gap 7 mmol/L (4-12); Blood Urea Nitrogen 22 mg/dL (9-20); Carbon Dioxide 34 mmol/L (22-30); Chloride 93 mmol/L (98-107); Estimated CRCL calculation 171 ml/min; Estimated Glomerular Filt Rate > 60; Glucose 267 mg/dL (65-110); Potassium 4.9 mmol/L (3.4-5.0); Sodium 134 mmol/L (137-145)
[2024-11-14] MEDS: methylPREDNISolone SOD SUCC 125 MG VIAL 60 MG IV PUSH ×4 (05:37→23:34)
[2024-11-14 06:12] LABS: Fractional Inspired Oxygen 60 %; HCO3 VBG 32.5 mEq/l (24.0-30.0); PCO2 VBG 60.1 mmHg (42.0-48.0); PO2 VBG 151.6 mmHg (35.0-45.0); pH VBG 7.351 (7.300-7.400)
[2024-11-14 06:15] LABS: Device HIGH FLOW THERAPY
--- NOTE | 2024-11-14 10:22 | P.PNIM_ITS ---
Progress Note: A&P Assessment and Plan (1) Acute respiratory failure with hypoxia and hypercapnia: Code(s): J96.01 - Acute respiratory failure with hypoxia; J96.02 - Acute respiratory failure with hypercapnia Status: Acute (2) COPD exacerbation: Code(s): J44.1 - Chronic obstructive pulmonary disease with (acute) exacerbation Status: Acute (3) Hypertension: Code(s): I10 - Essential (primary) hypertension Status: Acute (4) Hyperlipidemia: Code(s): E78.5 - Hyperlipidemia, unspecified Status: Acute (5) Obstructive sleep apnea: Code(s): G47.33 - Obstructive sleep apnea (adult) (pediatric) Status: Acute (6) Tobacco use: Code(s): Z72.0 - Tobacco use Status: Acute Plan The patient presented to the emergency department for evaluation of increasing cough and shortness of breath the last couple of days with some confusion this morning COPD exacerbation Patient has history of COPD, patient has worsening shortness breath and productive cough Continue scheduled DuoNeb, start albuterol nebulizer Q 4 p.r.n. Continue Solu-Medrol seated mg q.6 hours scheduled. add Symbicort Start Levaquin IV Acute on chronic respiratory failure Patient has history of chronic hypoxemia Now patient is on high-flow oxygen via nasal cannular Follow-up ABG Smoking cessation is imperative and was discussed. Nicotine patch ordered per patient request. Blood pressures are stable. His home medications will be reviewed and resumed as appropriate. Findings and treatment plan were discussed with the patient. Questions were solicited and answered to satisfaction. The patient's medical management will be taken over by the hospitalist team in a.m. Subjective Date/time seen: 11/14/24 10:22 Interval history: I saw and examined patient today, patient still has cough, shortness breath, patient has yellow greenish sputum with cough. Patient denies chest pain, abdomen pain, nausea vomiting diarrhea. Exam Narrative: GENERAL: Pleasant, in no acute distress. Well-nourished. - EYES: EOMI. Anicteric. - HENT: Moist mucous membranes. - LUNGS: Wheezing bilaterally - CARDIOVASCULAR: Regular rate and rhyth m. No murmur. No JVD. - ABDOMEN: Soft, non-tender and non-dist ended. No palpable masses. - EXTREMITIES: No edema. Peripheral puls es 2+. Non-tender. - NEUROLOGIC: No focal neurological defi cits. CN II-XII grossly intact. General weakness - PSYCHIATRIC: Awake, Alert and oriented x 3. Appropriate mood and affect. - SKIN: No rashes or lesions. Warm. - LYMPH: No cervical lymphadenopathy. Objective Data Vital Signs Vital Signs: Vital Signs - 24 hr 11/13/24 13:38 11/13/24 13:50 11/13/24 14:21 Temperature 97.6 F Pulse Rate 90 93 Respiratory Rate 18 20 Blood Pressure Pulse Oximetry 87 L 91 Oxygen Delivery Nasal Cannula Oxygen Flow Rate 6 Fraction of Inspired Oxygen 11/13/24 15:10 11/13/24 15:10 11/13/24 15:39 Temperature 97.6 F Pulse Rate 95 Respiratory Rate 18 Blood Pressure 142/75 H Pulse Oximetry 97 96 99 Oxygen Delivery Nasal Cannula Nasal Cannula Nasal Cannula Oxygen Flow Rate 8 8 8 Fraction of Inspired Oxygen 11/13/24 16:00 11/13/24 17:00 11/13/24 18:00 Temperature Pulse Rate 89 98 Respiratory Rate 18 14 Blood Pressure 120/80 Pulse Oximetry 90 94 93 Oxygen Delivery Nasal Cannula High Flow Therapy with Na Oxygen Flow Rate 4 60 Fraction of Inspired Oxygen 30 11/13/24 18:02 11/13/24 20:50 11/13/24 23:55 Temperature 100.0 F H Pulse Rate 105 H 105 H Respiratory Rate 14 24 H Blood Pressure 106/78 124/61 Pulse Oximetry 93 94 93 Oxygen Delivery High Flow Therapy with Na Oxygen Flow Rate 60 Fraction of Inspired Oxygen 32 11/14/24 00:00 11/14/24 00:06 11/14/24 02:00 Temperature Pulse Rate 113 H 93 Respiratory Rate Blood Pressure Pulse Oximetry 95 94 Oxygen Delivery High Flow Therapy with Na High Flow Therapy with Na Oxygen Flow Rate 60 60 Fraction of Inspired Oxygen 60 60 11/14/24 03:38 11/14/24 03:45 11/14/24 04:00 Temperature 98.3 F Pulse Rate 90 95 94 Respiratory Rate 22 H 22 H 22 H Blood Pressure 133/72 Pulse Oximetry 97 Oxygen Delivery Oxygen Flow Rate Fraction of Inspired Oxygen 11/14/24 04:00 11/14/24 04:00 11/14/24 06:00 Temperature Pulse Rate 88 91 Respiratory Rate Blood Pressure Pulse Oximetry 97 Oxygen Delivery High Flow Therapy with Na Oxygen Flow Rate 60 Fraction of Inspired Oxygen 60 11/14/24 08:06 11/14/24 08:36 11/14/24 08:39 Temperature 98.6 F Pulse Rate 92 80 80 Respiratory Rate 23 H 20 18 Blood Pressure 125/62 Pulse Oximetry 97 95 Oxygen Delivery High Flow Therapy with Na Oxygen Flow Rate 60 Fraction of Inspired Oxygen 60 11/14/24 08:44 Temperature Pulse Rate 79 Respiratory Rate 20 Blood Pressure Pulse Oximetry Oxygen Delivery Oxygen Flow Rate Fraction of Inspired Oxygen Intake/Output Intake/Output: Intake & Output 11/11/24 11/12/24 11/13/24 11/14/24 23:59 23:59 23:59 23:59 Intake Total 830 Output Total 1000 Balance -170 Meds/Results Medications: Active Medications Generic Name Dose Route Start Last Admin Trade Name Freq PRN Reason Stop Dose Admin Acetaminophen 650 mg 11/13/24 16:47 Acetaminophen 325 Mg Tablet PO Q4H PRN Mild Pain (1-3) or Fever Albuterol/Ipratropium 3 ml 11/13/24 20:00 11/14/24 08:36 Ipratropium 0.5 Mg/Albuterol Sulfate 2.5 Mg Ampul.Neb 3 Ml INHALATION 3 ml Q6HRT SASHA Administration Azithromycin 250 mg 11/14/24 21:00 Azithromycin 250 Mg Tablet PO 11/17/24 21:01 HS [facility] Methylprednisolone Sodium Succinate 60 mg 11/13/24 23:00 11/14/24 05:37 Methylprednisolone Sod Succ 125 Mg Vial IV PUSH 60 mg Q6HR SASHA Administration Ondansetron HCl 4 mg 11/13/24 16:47 Ondansetron Inj 4 Mg/2 Ml Vial IV PUSH Q4H PRN Nausea Radiology Results: ITS Impressions Chest X-Ray 11/13/24 15:03 IMPRESSION: 1. No acute cardiopulmonary disease. Labs Labs: Laboratory Results - last 24 hr 11/13/24 11/13/24 11/13/24 14:14 16:43 18:16 WBC 8.2 RBC 5.42 Hgb 16.4 Hct 51.7 MCV 95.4 MCH 30.3 MCHC 31.7 L RDW 14.2 Plt Count 222 MPV 10.0 Immature Gran % (Auto) 0.4 Neut % (Auto) 62.5 Lymph % (Auto) 18.0 L [place] % (Auto) 8.1 Eos % (Auto) 10.4 H Baso % (Auto) 0.6 Lymph # (Auto) 1.48 [place] # (Auto) 0.7 H Eos # (Auto) 0.9 H Baso # (Auto) 0.1 Abs Immat Gran (auto) 0.03 Absolute Neuts (auto) 5.1 Absolute Nucleated RBC 0.000 Nucleated RBC % 0.0 Puncture Site Left radial Left brachial ABG pH 7.307 L 7.324 L ABG pCO2 69.6 H* 61.3 H* ABG pO2 65.4 L 80.1 ABG PO2/FiO2 Ratio 1.36 2.67 ABG HCO3 34.0 H 31.2 H ABG O2 Saturation 90.3 L 94.7 L ABG O2 Content 20.8 20.7 ABG Base Excess 4.9 3.2 VBG pH VBG pCO2 VBG pO2 VBG HCO3 A-a Gradient 198.2 61.8 Oxyhemoglobin 91.3 94.3 Carboxyhemoglobin 1.0 Methemoglobin 0.2 Reduced Hemoglobin 7.5 H Total Hemoglobin 16.2 15.6 O2 Delivery Device Nasal cannula High flow therapy O2 Liters/Min 7.0 60.0 FiO2 48 30 Sodium 137 Potassium 5.0 Chloride 95 L Carbon Dioxide 38 H Anion Gap 4 BUN 18 D Creatinine 0.64 L Estim Creat Clear Calc 190 Estimated GFR > 60 Glucose 143 H POC Capillary Glucose Calcium 9.0 Magnesium Total Bilirubin 0.8 AST 24 ALT 24 Alkaline Phosphatase 92 NT-Pro-B Natriuret Pep < 20 Total Protein 8.0 Albumin 4.0 Influenza A (RT-PCR) Negative Influenza B (RT-PCR) Negative RSV (RT-PCR) Negative SARS-CoV-2 RNA (RT-PCR) Negative 11/13/24 11/13/24 11/14/24 23:19 23:29 04:23 WBC 9.5 RBC 5.00 Hgb 15.1 Hct 47.5 MCV 95.0 MCH 30.2 MCHC 31.8 L RDW 14.1 Plt Count 208 MPV 9.8 Immature Gran % (Auto) Neut % (Auto) Lymph % (Auto) [place] % (Auto) Eos % (Auto) Baso % (Auto) Lymph # (Auto) [place] # (Auto) Eos # (Auto) Baso # (Auto) Abs Immat Gran (auto) Absolute Neuts (auto) Absolute Nucleated RBC Nucleated RBC % Puncture Site ABG pH ABG pCO2 ABG pO2 ABG PO2/FiO2 Ratio ABG HCO3 ABG O2 Saturation ABG O2 Content ABG Base Excess VBG pH 7.395 VBG pCO2 48.6 H VBG pO2 83.3 H VBG HCO3 29.1 A-a Gradient Oxyhemoglobin Carboxyhemoglobin Methemoglobin Reduced Hemoglobin Total Hemoglobin O2 Delivery Device High humidity O2 Liters/Min 40.0 FiO2 30 Sodium 134 L Potassium 4.9 Chloride 93 L Carbon Dioxide 34 H Anion Gap 7 BUN 22 H Creatinine 0.71 Estim Creat Clear Calc 171 Estimated GFR > 60 Glucose 267 H POC Capillary Glucose 366 H Calcium 9.0 Magnesium 2.0 Total Bilirubin AST ALT Alkaline Phosphatase NT-Pro-B Natriuret Pep Total Protein Albumin Influenza A (RT-PCR) Influenza B (RT-PCR) RSV (RT-PCR) SARS-CoV-2 RNA (RT-PCR) 11/14/24 05:46 WBC RBC Hgb Hct MCV MCH MCHC RDW Plt Count MPV Immature Gran % (Auto) Neut % (Auto) Lymph % (Auto) [place] % (Auto) Eos % (Auto) Baso % (Auto) Lymph # (Auto) [place] # (Auto) Eos # (Auto) Baso # (Auto) Abs Immat Gran (auto) Absolute Neuts (auto) Absolute Nucleated RBC Nucleated RBC % Puncture Site ABG pH ABG pCO2 ABG pO2 ABG PO2/FiO2 Ratio ABG HCO3 ABG O2 Saturation ABG O2 Content ABG Base Excess VBG pH 7.351 VBG pCO2 60.1 H VBG pO2 151.6 H VBG HCO3 32.5 H A-a Gradient Oxyhemoglobin Carboxyhemoglobin Methemoglobin Reduced Hemoglobin Total Hemoglobin O2 Delivery Device High flow therapy O2 Liters/Min 60.0 FiO2 60 Sodium Potassium Chloride Carbon Dioxide Anion Gap BUN Creatinine Estim Creat Clear Calc Estimated GFR Glucose POC Capillary Glucose Calcium Magnesium Total Bilirubin AST ALT Alkaline Phosphatase NT-Pro-B Natriuret Pep Total Protein Albumin Influenza A (RT-PCR) Influenza B (RT-PCR) RSV (RT-PCR) SARS-CoV-2 RNA (RT-PCR)
[2024-11-14 11:36] LABS: Alveolar/Arterial O2 Gradient 271.3 mmHg; Base Excess ABG 6.3 mEq/l (+/-2.0); Fractional Inspired Oxygen 60 %; HCO3 ABG 34.6 mEq/l (22.0-26.0); Oxygen Content ABG 21.3 %vol (16.0-22.0); Oxygen Saturation ABG 95.6 % (95.0-100.0); Oxyhemoglobin 95.8 % THb (90.0-100.0); PO2 ABG 85.2 mmHg (80.0-100.0); PO2 FiO2 Ratio Arterial Blood 1.42 %; Total Hemoglobin 15.8 g/dL (12.0-18.0); pH ABG 7.345 (7.350-7.450)
[2024-11-14 11:42] LABS: PCO2 ABG 64.8 mmHg (35.0-45.0)
[2024-11-14 11:43] LABS: Device HIGH FLOW THERAPY; Site Drawn LEFT BRACHIAL
--- NOTE | 2024-11-14 11:43 | PCRCNOTE ---
RT obtained ABG outside window period due to RT being in a code.
[2024-11-14] MEDS: levoFLOXacin 750 MG/D5W 150 ML 750 MG/150 ML BAG 100 MG IVPB (12:39)
[2024-11-14] MEDS: HYDROcodone/acetaminophen (*CRX) 5-325 MG TABLET 1 TAB PO ×2 (12:39→21:34)
[2024-11-14 20:19] LABS: Glucose Point of Care 415 mg/dl (65-105)
[2024-11-14] MEDS: FLUTICASONE/SALMETEROL 115-21 MCG INHALER 1 PUFF 2 PUFF INHALATION (20:39)
--- NOTE | 2024-11-14 20:53 | P.PNCROSS_ITS ---
Event Note Event Note Event Note: Patient's glucose is 415. Now reporting he is diabetic and currently on methy lprednisolone IV scheduled. - hypoglycemia protocol - POC blood glucose ACHS - home medication: Hold metformin - correct regimen ordered - high dose TIDWM, based off BMI and on steroids - A1C ordered
[2024-11-14] MEDS: ATORVASTATIN 40 MG TABLET 80 MG PO (21:31)
[2024-11-14] MEDS: INSULIN ASPART (*BKC) 100 UNITS/ML 8 UNITS SUB-Q (22:08)
[2024-11-15] VITALS (31 sets, daily range): BP systolic 102–146; BP diastolic 63–74; PULSE 74–155; RESP 14–22; TEMP 36.4–37.2; O2SAT 90–100
[2024-11-15] MEDS: IPRATROPIUM 0.5 MG/ALBUTEROL SULFATE 2.5 MG AMPUL.NEB 3 ML INHALATION ×4 (01:45→22:03)
[2024-11-15] MEDS: methylPREDNISolone SOD SUCC 125 MG VIAL 60 MG IV PUSH (06:05)
[2024-11-15] MEDS: UMECLIDINIUM BROMIDE 62.5 MCG ELLIPTA 1 PUFF INHALATION (07:33)
[2024-11-15] MEDS: FLUTICASONE/SALMETEROL 115-21 MCG INHALER 1 PUFF 2 PUFF INHALATION ×2 (07:34→22:04)
--- NOTE | 2024-11-15 07:53 | PM.IMPN ---
Progress Note: A&P Assessment and Plan (1) Acute respiratory failure with hypoxia and hypercapnia: Code(s): J96.01 - Acute respiratory failure with hypoxia; J96.02 - Acute respiratory failure with hypercapnia Status: Acute (2) COPD exacerbation: Code(s): J44.1 - Chronic obstructive pulmonary disease with (acute) exacerbation Status: Acute (3) Hypertension: Code(s): I10 - Essential (primary) hypertension Status: Acute (4) Hyperlipidemia: Code(s): E78.5 - Hyperlipidemia, unspecified Status: Acute (5) Obstructive sleep apnea: Code(s): G47.33 - Obstructive sleep apnea (adult) (pediatric) Status: Acute (6) Tobacco use: Code(s): Z72.0 - Tobacco use Status: Acute Plan The patient presented to the emergency department for evaluation of increasing cough and shortness of breath the last couple of days with some confusion this morning COPD exacerbation Patient has history of COPD, patient has worsening shortness breath and productive cough Continue scheduled DuoNeb, start albuterol nebulizer Q 4 p.r.n. on Solu-Medrol 60 mg q.6 hours scheduled. add Symbicort Continue Levaquin IV, and bronchodilators Decrease methylprednisolone to 40 mg q.8 hours IV Acute on chronic respiratory failure Patient has history of chronic hypoxemia Now patient is on high-flow oxygen via nasal cannular Follow-up ABG showed hypercapnia, hypoxemic respiratory failure, pH 7.34, pCO2 64.8 PaO2 continue improved to 85.2 11/14 Uncontrolled type 2 diabetes Patient is not on medication at home A1c 8.0 Will start Lantus 24 unit daily, aspart 6 unit a.c., continue sliding scale Smoking cessation is imperative and was discussed. Nicotine patch ordered per patient request. Blood pressures are stable. His home medications will be reviewed and resumed as appropriate. Findings and treatment plan were discussed with the patient. Questions were solicited and answered to satisfaction. The patient's medical management will be taken over by the hospitalist team in a.m. Subjective Date/time seen: 11/15/24 07:53 Interval history: I saw and examined patient today, patient patient feels better today, dyspnea is improving, still has cough, shortness breath with exertion, patient has yellow greenish sputum but the last production of the phlegm. Patient denies chest pain, abdomen pain, nausea vomiting diarrhea. Exam Narrative: GENERAL: Pleasant, in no acute distress. Well-nourished. - EYES: EOMI. Anicteric. - HENT: Moist mucous membranes. - LUNGS: Wheezing bilaterally - CARDIOVASCULAR: Regular rate and rhythm. No murmur. No JVD. - ABDOMEN: Soft, non-tender and non-distended. No palpable masses. - EXTREMITIES: No edema. Peripheral pulses 2+. Non-tender. - NEUROLOGIC: No focal neurological deficits. CN II-XII grossly intact. General weakness - PSYCHIATRIC: Awake, Alert and oriented x 3. Appropriate mood and affect. - SKIN: No rashes or lesions. Warm. - LYMPH: No cervical lymphadenopathy. Objective Data Vital Signs Vital Signs: Vital Signs - 24 hr 11/14/24 08:00 11/14/24 08:00 11/14/24 08:06 Temperature 98.6 F Pulse Rate 79 96 92 Respiratory Rate 20 23 H Blood Pressure 125/62 Pulse Oximetry 95 97 Oxygen Delivery High Flow Therapy with Na Oxygen Flow Rate 60 Fraction of Inspired Oxygen 60 11/14/24 08:36 11/14/24 08:39 11/14/24 08:44 Temperature Pulse Rate 80 80 79 Respiratory Rate 20 18 20 Blood Pressure Pulse Oximetry 95 Oxygen Delivery High Flow Therapy with Na Oxygen Flow Rate 60 Fraction of Inspired Oxygen 60 11/14/24 10:00 11/14/24 12:00 11/14/24 12:00 Temperature Pulse Rate 93 79 98 Respiratory Rate 20 Blood Pressure Pulse Oximetry 95 Oxygen Delivery High Flow Therapy with Na Oxygen Flow Rate 60 Fraction of Inspired Oxygen 60 11/14/24 12:01 11/14/24 14:00 11/14/24 15:33 Temperature 98.0 F Pulse Rate 84 99 88 Respiratory Rate 20 20 Blood Pressure 107/63 Pulse Oximetry 94 Oxygen Delivery Oxygen Flow Rate Fraction of Inspired Oxygen 11/14/24 16:00 11/14/24 16:00 11/14/24 16:11 Temperature 97.7 F Pulse Rate 79 90 90 Respiratory Rate 20 22 H Blood Pressure 136/67 Pulse Oximetry 94 95 Oxygen Delivery High Flow Therapy with Na Oxygen Flow Rate 60 Fraction of Inspired Oxygen 60 11/14/24 17:53 11/14/24 20:00 11/14/24 20:00 Temperature 97.8 F Pulse Rate 101 H 88 Respiratory Rate 20 Blood Pressure 123/59 L Pulse Oximetry 96 97 Oxygen Delivery High Flow Therapy with Na Oxygen Flow Rate 60 Fraction of Inspired Oxygen 60 11/14/24 20:00 11/14/24 20:38 11/14/24 20:40 Temperature Pulse Rate 88 89 Respiratory Rate 20 Blood Pressure Pulse Oximetry 97 Oxygen Delivery High Flow Therapy with Na Oxygen Flow Rate 60 Fraction of Inspired Oxygen 60 11/14/24 20:46 11/14/24 22:00 11/14/24 23:30 Temperature 98.2 F Pulse Rate 92 95 100 Respiratory Rate 20 14 Blood Pressure 146/69 H Pulse Oximetry 94 Oxygen Delivery Oxygen Flow Rate Fraction of Inspired Oxygen 11/15/24 00:00 11/15/24 00:00 11/15/24 00:00 Temperature 98.2 F Pulse Rate 100 Respiratory Rate 14 20 Blood Pressure 146/69 H Pulse Oximetry 92 94 94 Oxygen Delivery BiPAP Oxygen Flow Rate Fraction of Inspired Oxygen 40 11/15/24 00:00 11/15/24 01:45 11/15/24 01:55 Temperature Pulse Rate 94 81 81 Respiratory Rate 20 20 Blood Pressure Pulse Oximetry Oxygen Delivery Oxygen Flow Rate Fraction of Inspired Oxygen 11/15/24 02:00 11/15/24 02:00 11/15/24 04:00 Temperature Pulse Rate 81 91 Respiratory Rate 20 Blood Pressure Pulse Oximetry 95 93 Oxygen Delivery BiPAP Oxygen Flow Rate Fraction of Inspired Oxygen 40 11/15/24 04:00 11/15/24 04:00 11/15/24 06:00 Temperature 97.6 F Pulse Rate 77 86 78 Respiratory Rate 14 Blood Pressure 143/68 H Pulse Oximetry 92 Oxygen Delivery Oxygen Flow Rate Fraction of Inspired Oxygen 11/15/24 07:34 Temperature Pulse Rate 82 Respiratory Rate 20 Blood Pressure Pulse Oximetry Oxygen Delivery Oxygen Flow Rate Fraction of Inspired Oxygen Intake/Output Intake/Output: Intake & Output 11/12/24 11/13/24 11/14/24 11/15/24 23:59 23:59 23:59 23:59 Intake Total 2600 Output Total 3150 1600 Balance -550 -1600 Meds/Results Medications: Active Medications Generic Name Dose Route Start Last Admin Trade Name Freq PRN Reason Stop Dose Admin Acetaminophen 650 mg 11/13/24 16:47 Acetaminophen 325 Mg Tablet PO Q4H PRN Mild Pain (1-3) or Fever Hydrocodone Bitart/Acetaminophen 1 tab 11/14/24 20:51 11/14/24 21:34 Hydrocodone/Acetaminophen (*Crx) 5-325 Mg Tablet PO 1 tab Q8H PRN Administration Pain Albuterol 2.5 mg 11/14/24 10:29 Albuterol Sulfate Neb 2.5 Mg/3 Ml Inh INHALATION Q4HRT PRN Shortness Of Breath Albuterol/Ipratropium 3 ml 11/13/24 20:00 11/15/24 07:32 Ipratropium 0.5 Mg/Albuterol Sulfate 2.5 Mg Ampul.Neb 3 Ml INHALATION 3 ml Q6HRT SASHA Administration Atorvastatin Calcium 80 mg 11/14/24 21:00 11/14/24 21:31 Atorvastatin 40 Mg Tablet PO 80 mg HS SASHA Administration Dextrose 12.5 gm 11/14/24 20:53 Dextrose 50% 25 Gm/50 Ml Syringe IV PUSH PRN PRN Hypoglycemia Protocol Glucagon 1 mg 11/14/24 20:53 Glucagon For Inj 1 Mg Vial IM PRN PRN Hypoglycemia Protocol Glucose 15 gm 11/14/24 20:53 Glucose Oral Gel 15 Gm Of Glucse In 37.5 Gm Tube PO PRN PRN Hypoglycemia Protocol Dextrose 1,000 mls @ 100 mls/hr 11/14/24 20:53 Dextrose 5% 1,000 Ml IVPB PRN PRN Hypoglycemia Protocol Insulin Aspart 4 - 8 units 11/15/24 08:00 Insulin Aspart (*Bkc) 100 Units/Ml SUB-Q TIDWM [facility] Protocol Lisinopril 30 mg 11/15/24 09:00 Lisinopril 10 Mg Tablet PO DAILY [facility] Methylprednisolone Sodium Succinate 60 mg 11/13/24 23:00 11/15/24 06:05 Methylprednisolone Sod Succ 125 Mg Vial IV PUSH 60 mg Q6HR SASHA Administration Ondansetron HCl 4 mg 11/13/24 16:47 Ondansetron Inj 4 Mg/2 Ml Vial IV PUSH Q4H PRN Nausea Pantoprazole Sodium 40 mg 11/15/24 09:00 Pantoprazole 40 Mg Tablet PO QAM SASHA Fluticasone/Salmeterol 2 puff 11/14/24 20:00 11/15/24 07:34 Fluticasone/Salmeterol 115-21 Mcg Inhaler 1 Puff INHALATION 2 puff Q12HRT SASHA Administration Umeclidinium [place] 1 puff 11/15/24 08:00 11/15/24 07:33 Umeclidinium [place] 62.5 Mcg Ellipta INHALATION 1 puff DAILYRT SASHA Administration Radiology Results: ITS Impressions Chest X-Ray 11/13/24 15:03 IMPRESSION: 1. No acute cardiopulmonary disease. Labs Labs: Laboratory Results - last 24 hr 11/14/24 11/14/24 11/15/24 11:30 19:50 06:02 Puncture Site Left brachial ABG pH 7.345 L ABG pCO2 64.8 H* ABG pO2 85.2 ABG PO2/FiO2 Ratio 1.42 ABG HCO3 34.6 H ABG O2 Saturation 95.6 ABG O2 Content 21.3 ABG Base Excess 6.3 A-a Gradient 271.3 Oxyhemoglobin 95.8 Total Hemoglobin 15.8 O2 Delivery Device High flow therapy O2 Liters/Min 60.0 FiO2 60 POC Capillary Glucose 415 H Hemoglobin A1c 8.0 H
[2024-11-15 08:31] LABS: Glucose Point of Care 405 mg/dl (65-105)
[2024-11-15] MEDS: PANTOPRAZOLE 40 MG TABLET PO (08:31)
[2024-11-15] MEDS: lisinopriL 10 MG TABLET 30 MG PO (08:31)
[2024-11-15 08:48] LABS: Anion Gap 6 mmol/L (4-12); Blood Urea Nitrogen 27 mg/dL (9-20); Calcium 9.1 mg/dL (8.4-10.2); Carbon Dioxide 34 mmol/L (22-30); Chloride 94 mmol/L (98-107); Estimated CRCL calculation 184 ml/min; Estimated Glomerular Filt Rate > 60; Glucose 352 mg/dL (65-110); Potassium 5.5 mmol/L (3.4-5.0); Sodium 134 mmol/L (137-145)
[2024-11-15 08:57] LABS: Basophils Percent Auto 0.1 % (0.2-1.2); Eosinophils Percent Auto 0.2 % (0-4.4); Hematocrit 46.9 % (42.0-52.0); Immature Granulocyte Absolute 0.08 K/mm3 (0.00-0.031); Immature Granulocyte Percent A 0.5 % (0-0.5); Lymphocytes Absolute Auto 0.66 K/mm3 (0.9-3.2); Lymphocytes Percent Auto 4.1 % (18.3-44.2); Mean Corpuscular Hemoglobin 30.4 pg (26-34); Mean Corpuscular Volume 94.9 fl (80-100); Mean Platelet Volume 11.1 fl (7.4-10.4); Monocytes Absolute Auto 0.7 K/mm3 (0.1-0.6); Monocytes Percent Auto 4.3 % (2.6-8.5); Neutrophils Absolute Auto 14.6 K/mm3 (1.3-6.7); Neutrophils Percent Auto 90.8 % (45.5-73.1); Platelet Count Result 232 k/mm3 (150-375); Red Blood Count 4.94 M/mm3 (4.6-6.20); Red Cell Distribution Width 14.5 % (11.5-14.5)
[2024-11-15] MEDS: methylPREDNISolone SOD SUCC 125 MG VIAL 40 MG IV PUSH ×2 (11:28→15:28)
[2024-11-15] MEDS: INSULIN ASPART (*BKC) 100 UNITS/ML SUB-Q (11:29)
[2024-11-15] MEDS: INSULIN GLARGINE (*BKC) 100 UNITS/ML 24 UNITS SUB-Q (11:29)
[2024-11-15] MEDS: INSULIN ASPART (*BKC) 100 UNITS/ML 6 UNITS SUB-Q (11:34)
[2024-11-15 11:41] LABS: Glucose Point of Care 372 mg/dl (65-105)
[2024-11-15] MEDS: NICOTINE (*PBKC) 21 MG PATCH 1 PATCH TRANSDERM (15:21)
[2024-11-15] MEDS: INSULIN ASPART (*BKC) 100 UNITS/ML 20 UNITS SUB-Q (15:28)
[2024-11-15 15:52] LABS: Glucose Point of Care 480 mg/dl (65-105)
[2024-11-15 20:03] LABS: Glucose Point of Care 419 mg/dl (65-105)
--- NOTE | 2024-11-15 20:09 | ECG_ITS ---
Test Date: 2024-11-15 20:17:09 Measurements Intervals [place] Rate: 149 P: 0 VA: 0 QRS: 66 QRSD: 104 T: 45 QT: 276 QTc: 435 Interpretive Statements ATRIAL FIBRILLATION WITH RAPID VENTRICULAR RESPONSE DELAYED PRECORDIAL R/S TRANSITION BASELINE ARTIFACT- I, II, III, AVR, AVL, AVF, V1-V3 ABNORMAL ECG Compared to ECG 11/13/2024 13:54:35 Sinus rhythm no longer present Electronically Signed On 11-16-2024 06:32:35 DISABILITY MANAGER by James Casas D.O.
[2024-11-15] MEDS: ATORVASTATIN 40 MG TABLET 80 MG PO (21:03)
[2024-11-15] MEDS: INSULIN ASPART (*BKC) 100 UNITS/ML 9 UNITS SUB-Q (21:04)
[2024-11-15] MEDS: ACETAMINOPHEN 325 MG TABLET 650 MG PO (21:05)
[2024-11-15] MEDS: HYDROcodone/acetaminophen (*CRX) 5-325 MG TABLET 1 TAB PO (21:05)
[2024-11-15] MEDS: METOPROLOL TARTRATE INJ 5 MG/5 ML VIAL IV PUSH ×3 (21:47→22:26)
[2024-11-15] MEDS: dilTIAZem HCl INJ 25 MG/5 ML VIAL 10 MG IV PUSH (23:47)
[2024-11-16] VITALS (28 sets, daily range): BP systolic 104–128; BP diastolic 46–109; PULSE 76–149; RESP 18–22; TEMP 36.4–37.2; O2SAT 80–100
[2024-11-16] MEDS: LEVALBUTEROL NEB 1.25 MG/3 ML INHALATION ×4 (02:19→20:50)
[2024-11-16] MEDS: IPRATROPIUM BR 0.02% INH SOLN 0.5 MG/2.5 ML VIAL INHALATION ×4 (02:19→20:51)
[2024-11-16] MEDS: methylPREDNISolone SOD SUCC 125 MG VIAL 40 MG IV PUSH ×3 (02:22→17:27)
[2024-11-16 05:40] LABS: Basophils Percent Auto 0.1 % (0.2-1.2); Hematocrit 46.6 % (42.0-52.0); Hemoglobin 14.8 g/dL (14.0-18.0); Immature Granulocyte Absolute 0.09 K/mm3 (0.00-0.031); Immature Granulocyte Percent A 0.6 % (0-0.5); Lymphocytes Absolute Auto 0.83 K/mm3 (0.9-3.2); Lymphocytes Percent Auto 5.9 % (18.3-44.2); Mean Corpuscular HGB Conc 31.8 g/dl (32-36); Mean Corpuscular Hemoglobin 30.1 pg (26-34); Mean Corpuscular Volume 94.7 fl (80-100); Mean Platelet Volume 10.1 fl (7.4-10.4); Monocytes Absolute Auto 0.9 K/mm3 (0.1-0.6); Monocytes Percent Auto 6.3 % (2.6-8.5); Neutrophils Absolute Auto 12.2 K/mm3 (1.3-6.7); Neutrophils Percent Auto 87.1 % (45.5-73.1); Platelet Count Result 226 k/mm3 (150-375); Red Blood Count 4.92 M/mm3 (4.6-6.20); Red Cell Distribution Width 14.7 % (11.5-14.5)
[2024-11-16 05:50] LABS: Anion Gap 5 mmol/L (4-12); Blood Urea Nitrogen 28 mg/dL (9-20); Calcium 8.6 mg/dL (8.4-10.2); Carbon Dioxide 30 mmol/L (22-30); Chloride 96 mmol/L (98-107); Estimated CRCL calculation 190 ml/min; Estimated Glomerular Filt Rate > 60; Glucose 319 mg/dL (65-110); Potassium 4.9 mmol/L (3.4-5.0); Sodium 131 mmol/L (137-145)
[2024-11-16 08:01] LABS: Glucose Point of Care 308 mg/dl (65-105)
--- NOTE | 2024-11-16 08:14 | P.PNIM_ITS ---
Progress Note: A&P Assessment and Plan (1) Acute respiratory failure with hypoxia and hypercapnia: Code(s): J96.01 - Acute respiratory failure with hypoxia; J96.02 - Acute respiratory failure with hypercapnia Status: Acute (2) COPD exacerbation: Code(s): J44.1 - Chronic obstructive pulmonary disease with (acute) exacerbation Status: Acute (3) Hypertension: Code(s): I10 - Essential (primary) hypertension Status: Acute (4) Hyperlipidemia: Code(s): E78.5 - Hyperlipidemia, unspecified Status: Acute (5) Obstructive sleep apnea: Code(s): G47.33 - Obstructive sleep apnea (adult) (pediatric) Status: Acute (6) Tobacco use: Code(s): Z72.0 - Tobacco use Status: Acute Plan The patient presented to the emergency department for evaluation of increasing cough and shortness of breath the last couple of days with some confusion this morning COPD exacerbation Patient has history of COPD, patient has worsening shortness breath and productive cough Continue scheduled DuoNeb, start albuterol nebulizer Q 4 p.r.n. albuterol has been switched to leave albuterol due to AFib with RVR on Solu-Medrol 60 mg q.6 hours scheduled. add Symbicort Continue Levaquin IV, and bronchodilators Decrease methylprednisolone to 40 mg q.8 hours IV Acute on chronic respiratory failure Patient has history of chronic hypoxemia Now patient is on high-flow oxygen via nasal cannular Follow-up ABG showed hypercapnia, hypoxemic respiratory failure, pH 7.34, pCO2 64.8 PaO2 continue improved to 85.2 11/14 Will check CTA Uncontrolled type 2 diabetes Patient is not on medication at home A1c 8.0 Started on Lantus 24 unit daily, aspart 6 unit a.c., continue sliding scale Adjust insulin Smoking cessation is imperative and was discussed. Nicotine patch ordered per patient request. Blood pressures are stable. Continue home medication AFib with RVR new diagnosis. Start heparin drip. Start Cardizem drip. Cardiology consult. Echo on August 2024 with EF 55-60% no significant valvular disease. Check TSH. TSH in August 0.09 DVT prophylaxis heparin drip now started on eliquis Code status full code Subjective Date/time seen: 11/16/24 08:14 Interval history: Overnight events noted. Discussed with the nursing staff. AFib with RVR overnight. Received 3 doses of IV metoprolol and 1 dose of Cardizem still running in 1 teens to 120s. Patient on Airvo uses BiPAP at night still wheezy Review of Systems Review of Systems: All systems reviewed & are unremarkable except as noted in HPI and below Exam Narrative: GENERAL: Pleasant, in no acute distress. Well-nourished. On Airvo 60 L 93% - EYES: EOMI. Anicteric. - HENT: Moist mucous membranes. - LUNGS: Diminished breath sounds bilat erally no respiratory distress - CARDIOVASCULAR: Regular rate and rhyth m. No murmur. No JVD. - ABDOMEN: Soft, non-tender and non-dist ended. No palpable masses. - EXTREMITIES: No edema. Peripheral puls es 2+. Non-tender. - NEUROLOGIC: No focal neurological defi cits. CN II-XII grossly intact. General weakness - PSYCHIATRIC: Awake, Alert and oriented x 3. Appropriate mood and affect. - SKIN: No rashes or lesions. Warm. - LYMPH: No cervical lymphadenopathy. Objective Data Vital Signs Vital Signs: Vital Signs - 24 hr 11/15/24 10:00 11/15/24 11:53 11/15/24 12:00 Temperature 98.0 F Pulse Rate 97 92 92 Respiratory Rate 22 H 22 H Blood Pressure 129/63 Pulse Oximetry 100 100 Oxygen Delivery BiPAP Oxygen Flow Rate Fraction of Inspired Oxygen 40 11/15/24 12:00 11/15/24 13:06 11/15/24 14:05 Temperature Pulse Rate 92 92 Respiratory Rate Blood Pressure Pulse Oximetry 96 Oxygen Delivery High Flow Therapy with Na Oxygen Flow Rate 60 Fraction of Inspired Oxygen 58 11/15/24 14:05 11/15/24 14:19 11/15/24 15:09 Temperature Pulse Rate 90 94 94 Respiratory Rate 20 20 20 Blood Pressure Pulse Oximetry 96 Oxygen Delivery High Flow Therapy with Na Oxygen Flow Rate 20 Fraction of Inspired Oxygen 58 11/15/24 15:09 11/15/24 16:12 11/15/24 17:32 Temperature 97.9 F Pulse Rate 94 88 88 Respiratory Rate 22 H Blood Pressure 119/63 Pulse Oximetry 92 Oxygen Delivery Oxygen Flow Rate Fraction of Inspired Oxygen 11/15/24 19:54 11/15/24 20:00 11/15/24 20:00 Temperature 98.2 F Pulse Rate 88 155 H 97 Respiratory Rate 22 H 22 H Blood Pressure 124/73 Pulse Oximetry 92 90 Oxygen Delivery High Flow Therapy with Na Oxygen Flow Rate 60 Fraction of Inspired Oxygen 58 11/15/24 21:47 11/15/24 21:52 11/15/24 22:05 Temperature Pulse Rate 154 H 154 H 122 H Respiratory Rate 22 H 20 Blood Pressure 102/71 Pulse Oximetry 95 Oxygen Delivery Oxygen Flow Rate Fraction of Inspired Oxygen 11/15/24 22:10 11/15/24 22:12 11/15/24 22:15 Temperature Pulse Rate 136 H 136 H Respiratory Rate 22 H Blood Pressure 113/64 Pulse Oximetry 96 97 Oxygen Delivery High Flow Therapy with Na Oxygen Flow Rate 60 Fraction of Inspired Oxygen 58 11/15/24 22:15 11/15/24 22:16 11/15/24 22:26 Temperature Pulse Rate 127 H 136 H 134 H Respiratory Rate 20 Blood Pressure Pulse Oximetry Oxygen Delivery Oxygen Flow Rate Fraction of Inspired Oxygen 11/15/24 22:29 11/15/24 23:30 11/15/24 23:49 Temperature 99 F Pulse Rate 134 H 123 H 129 H Respiratory Rate 21 H 20 21 H Blood Pressure 120/67 110/74 Pulse Oximetry 96 92 94 Oxygen Delivery BiPAP Oxygen Flow Rate Fraction of Inspired Oxygen 11/16/24 00:00 11/16/24 00:00 11/16/24 00:00 Temperature 99 F Pulse Rate 118 H 118 H 118 H Respiratory Rate 21 H 22 H Blood Pressure Pulse Oximetry 94 94 Oxygen Delivery High Flow Therapy with Na Oxygen Flow Rate 55 Fraction of Inspired Oxygen 60 11/16/24 01:00 11/16/24 02:00 11/16/24 02:20 Temperature Pulse Rate 118 H 114 H 123 H Respiratory Rate 22 H 20 Blood Pressure Pulse Oximetry 95 Oxygen Delivery BiPAP Oxygen Flow Rate Fraction of Inspired Oxygen 40 11/16/24 04:00 11/16/24 04:00 11/16/24 04:16 Temperature 98.6 F Pulse Rate 111 H 111 H 108 H Respiratory Rate 22 H 22 H Blood Pressure 104/46 L Pulse Oximetry 90 90 Oxygen Delivery BiPAP Oxygen Flow Rate Fraction of Inspired Oxygen 40 11/16/24 08:08 Temperature 97.7 F Pulse Rate 127 H Respiratory Rate 20 Blood Pressure 121/93 H Pulse Oximetry 96 Oxygen Delivery Oxygen Flow Rate Fraction of Inspired Oxygen Intake/Output Intake/Output: Intake & Output 11/13/24 11/14/24 11/15/24 11/16/24 23:59 23:59 23:59 23:59 Intake Total 2600 1380 900 Output Total 3150 3550 750 Balance -550 -2170 150 Meds/Results Medications: Active Medications Generic Name Dose Route Start Last Admin Trade Name Freq PRN Reason Stop Dose Admin Acetaminophen 650 mg 11/13/24 16:47 11/15/24 21:05 Acetaminophen 325 Mg Tablet PO 650 mg Q4H PRN Administration Mild Pain (1-3) or Fever Hydrocodone Bitart/Acetaminophen 1 tab 11/14/24 20:51 11/15/24 21:05 Hydrocodone/Acetaminophen (*Crx) 5-325 Mg Tablet PO 1 tab Q8H PRN Administration Pain Albuterol 2.5 mg 11/14/24 10:29 Albuterol Sulfate Neb 2.5 Mg/3 Ml Inh INHALATION Q4HRT PRN Shortness Of Breath Atorvastatin Calcium 80 mg 11/14/24 21:00 11/15/24 21:03 Atorvastatin 40 Mg Tablet PO 80 mg HS SASHA Administration Dextrose 12.5 gm 11/14/24 20:53 Dextrose 50% 25 Gm/50 Ml Syringe IV PUSH PRN PRN Hypoglycemia Protocol Glucagon 1 mg 11/14/24 20:53 Glucagon For Inj 1 Mg Vial IM PRN PRN Hypoglycemia Protocol Glucose 15 gm 11/14/24 20:53 Glucose Oral Gel 15 Gm Of Glucse In 37.5 Gm Tube PO PRN PRN Hypoglycemia Protocol Heparin Sodium (Porcine) 0 units 11/16/24 08:10 Heparin Sodium 5,000 Units/Ml Vial IV PUSH PRN PRN aPTT less than 55 seconds Heparin Sodium (Porcine) 0 units 11/16/24 08:10 Heparin Sodium 5,000 Units/Ml Vial IV PUSH PRN PRN aPTT 55 - 70 seconds Dextrose 1,000 mls @ 100 mls/hr 11/14/24 20:53 Dextrose 5% 1,000 Ml IVPB PRN PRN Hypoglycemia Protocol Diltiazem HCl 100 mg in 100 mls @ 5 mls/hr 11/16/24 08:10 Cardizem 100 Mg/100 Ml IV CONT .Q20H SASHA 5 MG/HR Heparin Sodium/Dextrose 25,000 units in 250 mls @ 31.14 mls/hr 11/16/24 08:10 Heparin Sodium/D5w 100 Units/Ml IV CONT .Q8H2M [facility] Protocol 18 UNITS/KG/HR Insulin Aspart 4 - 8 units 11/15/24 08:00 11/15/24 15:25 Insulin Aspart (*Bkc) 100 Units/Ml SUB-Q Not Given TIDWM [facility] Protocol Insulin Aspart 6 units 11/15/24 12:00 11/15/24 15:25 Insulin Aspart (*Bkc) 100 Units/Ml SUB-Q Not Given TIDWM [facility] Insulin Glargine 24 units 11/15/24 10:00 11/15/24 11:29 Insulin Glargine (*Bkc) 100 Units/Ml 0.15 units/kg (24 units) 24 units SUB-Q Administration DAILY [facility] Ipratropium [place] 0.5 mg 11/16/24 02:00 11/16/24 02:19 Ipratropium Br 0.02% Inh Soln 0.5 Mg/2.5 Ml Vial INHALATION 0.5 mg Q6HRT [facility] Administration Levalbuterol HCl 1.25 mg 11/16/24 02:00 11/16/24 02:19 Levalbuterol Neb 1.25 Mg/3 Ml INHALATION 1.25 mg Q6HRT [facility] Administration Lisinopril 30 mg 11/15/24 09:00 11/15/24 08:31 Lisinopril 10 Mg Tablet PO 30 mg DAILY [facility] Administration Methylprednisolone Sodium Succinate 40 mg 11/15/24 10:00 11/16/24 02:22 Methylprednisolone Sod Succ 125 Mg Vial IV PUSH 40 mg Q8H [facility] Administration Nicotine 1 patch 11/15/24 14:45 11/15/24 15:21 Nicotine (*Pbkc) 21 Mg Patch TRANSDERM 1 patch DAILY [facility] Administration Ondansetron HCl 4 mg 11/13/24 16:47 Ondansetron Inj 4 Mg/2 Ml Vial IV PUSH Q4H PRN Nausea Pantoprazole Sodium 40 mg 11/15/24 09:00 11/15/24 08:31 Pantoprazole 40 Mg Tablet PO 40 mg QAM [facility] Administration Fluticasone/Salmeterol 2 puff 11/14/24 20:00 11/15/24 22:04 Fluticasone/Salmeterol 115-21 Mcg Inhaler 1 Puff INHALATION 2 puff Q12HRT [facility] Administration Umeclidinium [place] 1 puff 11/15/24 08:00 11/15/24 07:33 Umeclidinium [place] 62.5 Mcg Ellipta INHALATION 1 puff DAILYRT SASHA Administration Radiology Results: ITS Impressions Chest X-Ray 11/13/24 15:03 IMPRESSION: 1. No acute cardiopulmonary disease. Labs Labs: Laboratory Results - last 24 hr 11/15/24 11/15/24 11/15/24 05:54 08:27 11:16 WBC 16.0 H RBC 4.94 Hgb 15.0 Hct 46.9 MCV 94.9 MCH 30.4 MCHC 32.0 RDW 14.5 Plt Count 232 MPV 11.1 H Immature Gran % (Auto) 0.5 Neut % (Auto) 90.8 H Lymph % (Auto) 4.1 L [place] % (Auto) 4.3 Eos % (Auto) 0.2 Baso % (Auto) 0.1 L Lymph # (Auto) 0.66 L [place] # (Auto) 0.7 H Eos # (Auto) 0.0 Baso # (Auto) 0.0 Abs Immat Gran (auto) 0.08 H Absolute Neuts (auto) 14.6 H Absolute Nucleated RBC 0.000 Nucleated RBC % 0.0 Sodium 134 L Potassium 5.5 H Chloride 94 L Carbon Dioxide 34 H Anion Gap 6 BUN 27 H Creatinine 0.66 L Estim Creat Clear Calc 184 Estimated GFR > 60 Glucose 352 H POC Capillary Glucose 405 H 372 H Calcium 9.1 11/15/24 11/15/24 11/16/24 15:18 19:59 05:05 WBC 14.0 H RBC 4.92 Hgb 14.8 Hct 46.6 MCV 94.7 MCH 30.1 MCHC 31.8 L RDW 14.7 H Plt Count 226 MPV 10.1 Immature Gran % (Auto) 0.6 H Neut % (Auto) 87.1 H Lymph % (Auto) 5.9 L [place] % (Auto) 6.3 Eos % (Auto) 0.0 Baso % (Auto) 0.1 L Lymph # (Auto) 0.83 L [place] # (Auto) 0.9 H Eos # (Auto) 0.0 Baso # (Auto) 0.0 Abs Immat Gran (auto) 0.09 H Absolute Neuts (auto) 12.2 H Absolute Nucleated RBC 0.000 Nucleated RBC % 0.0 Sodium 131 L Potassium 4.9 Chloride 96 L Carbon Dioxide 30 Anion Gap 5 BUN 28 H Creatinine 0.67 L Estim Creat Clear Calc 190 Estimated GFR > 60 Glucose 319 H POC Capillary Glucose 480 H 419 H Calcium 8.6 11/16/24 07:22 WBC RBC Hgb Hct MCV MCH MCHC RDW Plt Count MPV Immature Gran % (Auto) Neut % (Auto) Lymph % (Auto) [place] % (Auto) Eos % (Auto) Baso % (Auto) Lymph # (Auto) [place] # (Auto) Eos # (Auto) Baso # (Auto) Abs Immat Gran (auto) Absolute Neuts (auto) Absolute Nucleated RBC Nucleated RBC % Sodium Potassium Chloride Carbon Dioxide Anion Gap BUN Creatinine Estim Creat Clear Calc Estimated GFR Glucose POC Capillary Glucose 308 H Calcium
[2024-11-16] MEDS: dilTIAZem 100 MG/100 ML 100 MG/100 ML BAG IV CONT (08:35)
--- NOTE | 2024-11-16 08:40 | PM.CNCAR ---
Assessment and Plan Assessment and plan (1) Atrial fibrillation with RVR: Code(s): I48.91 - Unspecified atrial fibrillation Status: Acute Assessment and Plan: 54-year-old male with hypertension, diabetes mellitus, COPD, chronic respiratory failure on home oxygen, KAL on CPAP, dyslipidemia, morbid obesity, history of heavy tobacco abuse. Patient admitted to the hospital with acute on chronic hypoxemic and hypercarbic respiratory failure. He went into AFib with RVR during hospitalization which can be paroxysmal versus persistent. Recent LV systolic function on echo reported to be preserved. -continue IV diltiazem for rate control he he needs, titrate dose as needed. Bridge with oral diltiazem, start with short-acting and may discharge home on long-acting diltiazem. -based on patient's current CHADSVASc score, anticoagulation ES the knee may be appropriate for CVA prophylaxis. Initiate on apixaban 5 mg p.o. b.i.d.. -check thyroid panel -continue to monitor on telemetry. May consider SARINA guided DC cardioversion if heart rate is difficult to control; emergent DC cardioversion for hemodynamically unstable AFib with RVR -plan discussed with the patient and he is in agreement (2) Acute on chronic respiratory failure with hypoxia and hypercapnia: Code(s): J96.21 - Acute and chronic respiratory failure with hypoxia; J96.22 - Acute and chronic respiratory failure with hypercapnia Status: Acute Assessment and Plan: Supplemental oxygen, bronchodilators-management as per primary team and pulmonology Patient has history of heavy tobacco abuse but reports that he has quit tobacco. He was advised to continue to abstain from smoking. (3) COPD exacerbation: Code(s): J44.1 - Chronic obstructive pulmonary disease with (acute) exacerbation Status: Acute Assessment and Plan: Management as per primary team (4) KAL (obstructive sleep apnea): Code(s): G47.33 - Obstructive sleep apnea (adult) (pediatric) Status: Acute Assessment and Plan: CP with supplemental oxygen History of Present Illness History of Present Illness Consult date/time: 11/16/24 08:40 Requesting physician: Tamir Dang MD Consult reason: Other (Afib RVR) Reason For Visit: COPD EXACERBATION, HYPERCAPNIA Narrative: DATE OF CONSULT: 11/16/2024 REASON FOR CONSULT: AFib with RVR REQUESTING PHYSICIAN: Dr Dang CHIEF COMPLAINT: Worsening Shortness of breath HPI: 54-year-old male with hypertension, diabetes mellitus, COPD, chronic respiratory failure on home oxygen, KAL on CPAP, dyslipidemia, morbid obesity, history of heavy tobacco abuse. Patient presented to [facility] Emergency Room on 11/13/2024 with 2 day history of worsening dyspnea. At baseline, patient has dyspnea on mild exertion. For last few days, he has been getting more short of breath associated with cough with scanty expectoration. Denies hemoptysis. No chest pain. No palpitation, dizziness or syncope. No known prior cardiac history including clinical AR, angina, heart failure or any known arrhythmias. At presentation, patient was in sinus rhythm. During hospitalization, he went into AFib with RVR. As per staff, patient was given IV metoprolol and diltiazem. At the time of evaluation, patient was in atrial fibrillation with RVR with heart rates in the 130s to 140s. EKG at presentation on my personal interpretation showed sinus rhythm without acute ST segment abnormality. During hospitalization, patient had AFib with RVR and EKG on my personal interpretation showed AFib with RVR with heart rate of 149 beats per minute. ABG showed pH 7.3, pCO2 67, PO2 65. Chest x-ray unremarkable. NT proBNP unremarkable. Recent echo from 09/19/2024 reportedly showed moderate LV enlargement, EF 55-60%, normal RV systolic function, no significant valvular abnormality. Patient has history of heavy tobacco abuse, and reports that he quit tobacco a few months ago. Review of Systems Review of Systems: General: Negative for fever, chills, fatigue Psychological: Negative for anxiety, depression Ophthalmic: negative for loss of vision ENT: Negative for epistaxis, headaches Allergy and immunology: Negative for hives, nasal congestion Hematologic and lymphatic: Negative for overt bleeding problems Endocrine: Negative for hot flashes, palpitations Respiratory: Positive for cough and worsening dyspnea Cardiovascular: Negative for chest pain, positive for worsening dyspnea Gastrointestinal: Negative for abdominal pain, nausea, vomiting, hematochezia Musculoskeletal: Negative for myalgia, joint pains Neurological: Negative for weakness Dermatological: Negative for rash, skin discoloration PMFSH Past Medical History Medical History Diabetes Chronic obstructive pulmonary disease Hyperlipidemia Hypertension Seasonal allergies Rheumatoid arthritis Sleep apnea Seizures Tobacco use Surgical History Surgical History History of right knee surgery Has had 5 surgeries total including ACL and meniscus repairs History of left knee surgery 1991-Dr. Erwin, meniscus repair, repair meniscus again by Dr. Mccloud Family History Family History Mother Malignant neoplasm Hypertension Diabetes mellitus Arthritis Father Diabetes mellitus Social History Social History Social History: Surrogate medical decision maker: Yenifer Tadeo, spouse. Code status: Full code. Smoking packs per day: 1.5 Smoking cigarettes per day: 30.0 Years smoked: 45 Smoking pack-years: 67.50 Smoking status: Current every day smoker Tobacco type: cigarettes Second hand tobacco smoke exposure: Yes Alcohol intake: former Alcohol use details: rare Substance use: current Substance use type: marijuana Last use: 09/12/24 Do You Feel Safe in your Home?: Yes Lack of Transportation: YES Lack of Food: Never True Current Housing: I Have Housing Concerned About Future Housing: No Difficulty Paying Gas/Electric Bills: No Difficulty Paying for Meds: YES Currently Unemployed: No Education: High School Diploma/GED Difficulty w/ Childcare or Family Care: No Living arrangements: with family Occupation/Education: occupation Spiritual care concerns: No Meds Home Medications and Allergies Home Medications ?Medication ?Instructions ?Recorded ?Confirmed ?Type albuterol sulfate 90 mcg/actuation 2 inh inhalation Q4H PRN shortness 09/20/24 11/13/24 Rx breath activated powder inhaler of breath or wheezing #1 ea atorvastatin 40 mg tablet 80 mg (2 x 40 mg) PO HS #30 tabs 09/20/24 11/13/24 Rx fluticasone 250 mcg-salmeterol 50 1 inh inhalation Q12H #60 ea 09/20/24 11/13/24 Rx mcg/dose blistr powdr for inhalation (Advair Diskus) ipratropium bromide 0.02 % 2.5 ml inhalation Q6H PRN 09/20/24 11/13/24 Rx solution for inhalation shortness of breath or wheezing #75 mL levofloxacin 750 mg tablet 750 mg PO DAILY #3 tabs 09/20/24 11/13/24 Rx lisinopril 30 mg tablet 30 mg PO DAILY #30 tabs 09/20/24 11/13/24 Rx nebulizer and compressor #1 ea 09/20/24 11/13/24 Rx nicotine 21 mg/24 hr daily 1 patch transdermal DAILY #30 ea 09/20/24 11/13/24 Rx transdermal patch (Nicoderm CQ) tiotropium bromide 18 mcg capsule 1 cap inhalation DAILY #30 09/20/24 11/13/24 Rx with inhalation device (Spiriva inhalations with HandiHaler) hydrocodone 5 mg-acetaminophen 325 1 tablet PO Q8H pain 11/14/24 11/14/24 History mg tablet pantoprazole 40 mg tablet,delayed 40 mg PO QAM 11/14/24 11/14/24 History release Allergies Allergy/AdvReac Type Severity Reaction Status Date / Time codeine AdvReac Unknown nightmares, Verified 11/13/24 15:24 extreme internal ear itching Vital Signs Vital Signs - 24 hr 11/15/24 10:00 11/15/24 11:53 11/15/24 12:00 Temperature 36.7 C Pulse Rate 97 92 92 Respiratory Rate 22 H 22 H Blood Pressure 129/63 Pulse Oximetry 100 100 Oxygen Delivery BiPAP Oxygen Flow Rate Fraction of Inspired Oxygen 40 11/15/24 12:00 11/15/24 13:06 11/15/24 14:05 Temperature Pulse Rate 92 92 Respiratory Rate Blood Pressure Pulse Oximetry 96 Oxygen Delivery High Flow Therapy with Na Oxygen Flow Rate 60 Fraction of Inspired Oxygen 58 11/15/24 14:05 11/15/24 14:19 11/15/24 15:09 Temperature Pulse Rate 90 94 94 Respiratory Rate 20 20 20 Blood Pressure Pulse Oximetry 96 Oxygen Delivery High Flow Therapy with Na Oxygen Flow Rate 20 Fraction of Inspired Oxygen 58 11/15/24 15:09 11/15/24 16:12 11/15/24 17:32 Temperature 36.6 C Pulse Rate 94 88 88 Respiratory Rate 22 H Blood Pressure 119/63 Pulse Oximetry 92 Oxygen Delivery Oxygen Flow Rate Fraction of Inspired Oxygen 11/15/24 19:54 11/15/24 20:00 11/15/24 20:00 Temperature 36.8 C Pulse Rate 88 155 H 97 Respiratory Rate 22 H 22 H Blood Pressure 124/73 Pulse Oximetry 92 90 Oxygen Delivery High Flow Therapy with Na Oxygen Flow Rate 60 Fraction of Inspired Oxygen 58 11/15/24 21:47 11/15/24 21:52 11/15/24 22:05 Temperature Pulse Rate 154 H 154 H 122 H Respiratory Rate 22 H 20 Blood Pressure 102/71 Pulse Oximetry 95 Oxygen Delivery Oxygen Flow Rate Fraction of Inspired Oxygen 11/15/24 22:10 11/15/24 22:12 11/15/24 22:15 Temperature Pulse Rate 136 H 136 H Respiratory Rate 22 H Blood Pressure 113/64 Pulse Oximetry 96 97 Oxygen Delivery High Flow Therapy with Na Oxygen Flow Rate 60 Fraction of Inspired Oxygen 58 11/15/24 22:15 11/15/24 22:16 11/15/24 22:26 Temperature Pulse Rate 127 H 136 H 134 H Respiratory Rate 20 Blood Pressure Pulse Oximetry Oxygen Delivery Oxygen Flow Rate Fraction of Inspired Oxygen 11/15/24 22:29 11/15/24 23:30 11/15/24 23:49 Temperature 37.2 C Pulse Rate 134 H 123 H 129 H Respiratory Rate 21 H 20 21 H Blood Pressure 120/67 110/74 Pulse Oximetry 96 92 94 Oxygen Delivery BiPAP Oxygen Flow Rate Fraction of Inspired Oxygen 11/16/24 00:00 11/16/24 00:00 11/16/24 00:00 Temperature 37.2 C Pulse Rate 118 H 118 H 118 H Respiratory Rate 21 H 22 H Blood Pressure Pulse Oximetry 94 94 Oxygen Delivery High Flow Therapy with Na Oxygen Flow Rate 55 Fraction of Inspired Oxygen 60 11/16/24 01:00 11/16/24 02:00 11/16/24 02:20 Temperature Pulse Rate 118 H 114 H 123 H Respiratory Rate 22 H 20 Blood Pressure Pulse Oximetry 95 Oxygen Delivery BiPAP Oxygen Flow Rate Fraction of Inspired Oxygen 40 11/16/24 04:00 11/16/24 04:00 11/16/24 04:16 Temperature 37.0 C Pulse Rate 111 H 111 H 108 H Respiratory Rate 22 H 22 H Blood Pressure 104/46 L Pulse Oximetry 90 90 Oxygen Delivery BiPAP Oxygen Flow Rate Fraction of Inspired Oxygen 40 11/16/24 08:08 Temperature 36.5 C Pulse Rate 127 H Respiratory Rate 20 Blood Pressure 121/93 H Pulse Oximetry 96 Oxygen Delivery Oxygen Flow Rate Fraction of Inspired Oxygen Exam Narrative: PHYSICAL EXAMINATION: GENERAL: Morbidly obese male, on supplemental oxygen; no acute distress MENTAL STATUS: affect appropriate to mood EYES: Extraocular movements intact, no pallor EARS: External ears appear normal, hearing grossly normal NOSE: Normal and patent, no discharge MOUTH: Mucous membranes moist, tongue normal NECK: Supple, JVP not appreciable, thick neck CHEST: Good respiratory effort, clear to auscultation HEART: Tachycardic, irregularly irregular rhythm ABDOMEN: Soft, nontender NEUROLOGICAL: Alert, oriented, normal speech, no gross motor deficits MUSCULOSKELETAL: No major deformity, no amputation EXTREMITIES: Mild pedal edema, no clubbing, no cyanosis SKIN: no rash on the exposed area, no cyanosis PSYCHIATRIC: Normal mood, appropriate affect Results Labs and Meds 11/16/24 05:05 11/16/24 05:05 Lab results: CBC 11/15/24 11/16/24 Range/Units 05:54 05:05 WBC 16.0 H 14.0 H (4.5-10.0) K/mm3 RBC 4.94 4.92 (4.6-6.20) M/mm3 Hgb 15.0 14.8 (14.0-18.0) g/dL Hct 46.9 46.6 (42.0-52.0) % Plt Count 232 226 (150-375) k/mm3 Lymph # (Auto) 0.66 L 0.83 L (0.9-3.2) K/mm3 Converse # (Auto) 0.7 H 0.9 H (0.1-0.6) K/mm3 Eos # (Auto) 0.0 0.0 (0-0.3) K/mm3 Baso # (Auto) 0.0 0.0 (0.0-0.1) K/mm3 Comprehensive Metabolic Panel 11/15/24 11/16/24 Range/Units 05:54 05:05 Sodium 134 L 131 L (137-145) mmol/L Potassium 5.5 H 4.9 (3.4-5.0) mmol/L Chloride 94 L 96 L (98-107) mmol/L Carbon Dioxide 34 H 30 (22-30) mmol/L BUN 27 H 28 H (9-20) mg/dL Creatinine 0.66 L 0.67 L (0.7-1.3) mg/dL Glucose 352 H 319 H (65-110) mg/dL Calcium 9.1 8.6 (8.4-10.2) mg/dL Intake and Output 11/15/24 11/16/24 11/16/24 23:59 07:59 15:59 Intake Total 540 900 Output Total 350 750 Balance 190 150 Intake: Oral 540 900 Output: Urine 350 750 Patient Weight 11/16/24 23:59 Weight 173 kg
[2024-11-16 08:56] LABS: INR 1.1; Prothrombin Time 14.5 Seconds (11.1-14.7)
[2024-11-16 08:57] LABS: Partial Thromboplastin Time 34.7 Seconds (22.3-36.8)
[2024-11-16] MEDS: FLUTICASONE/SALMETEROL 115-21 MCG INHALER 1 PUFF 2 PUFF INHALATION ×2 (08:59→20:51)
[2024-11-16] MEDS: UMECLIDINIUM BROMIDE 62.5 MCG ELLIPTA 1 PUFF INHALATION (08:59)
[2024-11-16] MEDS: INSULIN ASPART (*BKC) 100 UNITS/ML SUB-Q ×3 (09:07→17:38)
[2024-11-16] MEDS: INSULIN ASPART (*BKC) 100 UNITS/ML 6 UNITS SUB-Q ×2 (09:08→12:11)
[2024-11-16] MEDS: INSULIN GLARGINE (*BKC) 100 UNITS/ML 24 UNITS SUB-Q (09:08)
[2024-11-16] MEDS: NICOTINE (*PBKC) 21 MG PATCH 1 PATCH TRANSDERM (09:09)
[2024-11-16] MEDS: PANTOPRAZOLE 40 MG TABLET PO (09:09)
[2024-11-16] MEDS: lisinopriL 10 MG TABLET 30 MG PO (09:09)
[2024-11-16 09:35] LABS: Thyroid Stimulating Hormone Reflex 0.634 uIU/mL (0.465-4.68)
[2024-11-16 11:39] LABS: Glucose Point of Care 394 mg/dl (65-105)
[2024-11-16] MEDS: dilTIAZem HCL 30 MG TABLET PO ×3 (12:06→23:40)
[2024-11-16] MEDS: ACETAMINOPHEN 325 MG TABLET 650 MG PO (12:06)
[2024-11-16] MEDS: VANCOMYCIN 1,250 MG/NS 250 ML 1,250 MG/250 ML BAG 166.67 MG IVPB ×2 (17:26→18:37)
[2024-11-16] MEDS: INSULIN GLARGINE (*BKC) 100 UNITS/ML 18 UNITS SUB-Q (17:37)
[2024-11-16] MEDS: INSULIN ASPART (*BKC) 100 UNITS/ML 10 UNITS SUB-Q (17:38)
[2024-11-16 19:35] LABS: Glucose Point of Care 411 mg/dl (65-105)
[2024-11-16] MEDS: dilTIAZem 100 MG/100 ML 100 MG/100 ML BAG 10 MG IV CONT (19:39)
--- NOTE | 2024-11-16 19:41 | PC.NURSE ---
Patient became verbally aggressive refusing to use bedside commode, insisted to use personal bathroom while on a heartrate control drip, and high flow oxygen (airvo). Called and notified Dr. Dang.
[2024-11-16 20:15] LABS: Glucose Point of Care 318 mg/dl (65-105)
[2024-11-16] MEDS: guaiFENesin 12 HR 600 MG TABCR 1200 MG PO (20:52)
[2024-11-16] MEDS: ATORVASTATIN 40 MG TABLET 80 MG PO (20:52)
[2024-11-16] MEDS: APIXABAN 5 MG TABLET PO (20:52)
[2024-11-16] MEDS: levoFLOXacin 750 MG/D5W 150 ML 750 MG/150 ML BAG 100 MG IVPB (20:53)
[2024-11-16] MEDS: HYDROcodone/acetaminophen (*CRX) 5-325 MG TABLET 1 TAB PO (21:01)
[2024-11-17] VITALS (30 sets, daily range): BP systolic 103–144; BP diastolic 55–98; PULSE 65–158; RESP 15–24; TEMP 36.5–36.9; O2SAT 92–100
[2024-11-17] MEDS: dilTIAZem 100 MG/100 ML 100 MG/100 ML BAG 15 MG IV CONT ×4 (01:38→21:47)
[2024-11-17] MEDS: methylPREDNISolone SOD SUCC 125 MG VIAL 40 MG IV PUSH ×3 (01:40→17:37)
[2024-11-17] MEDS: LEVALBUTEROL NEB 1.25 MG/3 ML INHALATION ×4 (02:22→22:11)
[2024-11-17] MEDS: IPRATROPIUM BR 0.02% INH SOLN 0.5 MG/2.5 ML VIAL INHALATION ×4 (02:22→22:11)
[2024-11-17 03:11] LABS: MRSA (PCR) NOT DETECTED (NOT DETECTE)
[2024-11-17 05:11] LABS: Basophils Percent Auto 0.1 % (0.2-1.2); Eosinophils Percent Auto 0.2 % (0-4.4); Hematocrit 44.6 % (42.0-52.0); Hemoglobin 14.2 g/dL (14.0-18.0); Immature Granulocyte Absolute 0.06 K/mm3 (0.00-0.031); Immature Granulocyte Percent A 0.5 % (0-0.5); Lymphocytes Absolute Auto 1.05 K/mm3 (0.9-3.2); Mean Corpuscular HGB Conc 31.8 g/dl (32-36); Mean Corpuscular Hemoglobin 30.1 pg (26-34); Mean Corpuscular Volume 94.5 fl (80-100); Mean Platelet Volume 10.4 fl (7.4-10.4); Monocytes Absolute Auto 1.2 K/mm3 (0.1-0.6); Monocytes Percent Auto 10.4 % (2.6-8.5); Neutrophils Absolute Auto 9.3 K/mm3 (1.3-6.7); Neutrophils Percent Auto 79.8 % (45.5-73.1); Platelet Count Result 223 k/mm3 (150-375); Red Blood Count 4.72 M/mm3 (4.6-6.20); Red Cell Distribution Width 14.7 % (11.5-14.5); White Blood Count 11.6 K/mm3 (4.5-10.0)
[2024-11-17 05:32] LABS: Alanine Aminotransferase 21 U/L (6-50); Albumin Level 3.1 g/dL (3.5-5.1); Alkaline Phosphatase 74 U/L (38-126); Anion Gap 6 mmol/L (4-12); Aspartate Amino Transferase 16 U/L (17-59); Bilirubin,Total 0.5 mg/dL (0.2-1.3); Blood Urea Nitrogen 30 mg/dL (9-20); Calcium 8.4 mg/dL (8.4-10.2); Carbon Dioxide 30 mmol/L (22-30); Chloride 95 mmol/L (98-107); Estimated CRCL calculation 187 ml/min; Estimated Glomerular Filt Rate > 60; Glucose 303 mg/dL (65-110); Magnesium 2.2 mg/dL (1.6-2.3); Potassium 4.3 mmol/L (3.4-5.0); Sodium 131 mmol/L (137-145)
[2024-11-17] MEDS: dilTIAZem HCL 30 MG TABLET PO (05:33)
[2024-11-17] MEDS: INSULIN GLARGINE (*BKC) 100 UNITS/ML 18 UNITS SUB-Q ×2 (05:33→15:58)
[2024-11-17] MEDS: VANCOMYCIN 1,500 MG/NS 500 ML 1,500 MG/500 ML BAG 250 MG IVPB (05:35)
[2024-11-17 06:05] LABS: Glucose Point of Care 278 mg/dl (65-105)
[2024-11-17] MEDS: FLUTICASONE/SALMETEROL 115-21 MCG INHALER 1 PUFF 2 PUFF INHALATION ×2 (07:10→22:22)
[2024-11-17] MEDS: UMECLIDINIUM BROMIDE 62.5 MCG ELLIPTA 1 PUFF INHALATION (07:11)
[2024-11-17 07:22] LABS: Glucose Point of Care 270 mg/dl (65-105)
[2024-11-17] MEDS: INSULIN ASPART (*BKC) 100 UNITS/ML SUB-Q ×3 (08:13→16:09)
[2024-11-17] MEDS: INSULIN ASPART (*BKC) 100 UNITS/ML 10 UNITS SUB-Q ×3 (08:13→16:09)
[2024-11-17] MEDS: guaiFENesin 12 HR 600 MG TABCR 1200 MG PO ×2 (08:14→20:38)
[2024-11-17] MEDS: ACETAMINOPHEN 325 MG TABLET 650 MG PO ×2 (08:14→15:11)
[2024-11-17] MEDS: PANTOPRAZOLE 40 MG TABLET PO (08:14)
[2024-11-17] MEDS: lisinopriL 10 MG TABLET 30 MG PO (08:14)
[2024-11-17] MEDS: NICOTINE (*PBKC) 21 MG PATCH 1 PATCH TRANSDERM (08:14)
[2024-11-17] MEDS: APIXABAN 5 MG TABLET PO ×2 (08:14→20:38)
[2024-11-17] MEDS: HYDROcodone/acetaminophen (*CRX) 5-325 MG TABLET 1 TAB PO ×2 (08:57→20:38)
--- NOTE | 2024-11-17 09:23 | P.PNCA_ITS ---
Progress Note: A&P Assessment and Plan (1) Atrial fibrillation with RVR: Code(s): I48.91 - Unspecified atrial fibrillation Status: Acute Assessment and Plan: 54-year-old male with hypertension, diabetes mellitus, COPD, chronic respiratory failure on home oxygen, KAL on CPAP, dyslipidemia, morbid obesity, history of heavy tobacco abuse. Patient admitted to the hospital with acute on chronic hypoxemic and hypercarbic respiratory failure. He went into AFib with RVR during hospitalization (paroxysmal versus persistent). Recent LV systolic function on echo reported to be preserved. -continue IV diltiazem for rate control he he needs, titrate dose as needed, being bridged with oral diltiazem (dose changed to 60 mg t.i.d). May discharge home on long-acting diltiazem. -continue anticoagulation with apixaban 5 mg p.o. b.i.d.. -current TSH within normal limits -continue to monitor on telemetry. May consider SARINA guided DC cardioversion if heart rate is difficult to control; emergent DC cardioversion for hemodynamically unstable AFib with RVR -plan discussed with the patient and he is in agreement. He will follow-up with me after hospital discharge. Follow up information provided to the patient. (2) Acute on chronic respiratory failure with hypoxia and hypercapnia: Code(s): J96.21 - Acute and chronic respiratory failure with hypoxia; J96.22 - Acute and chronic respiratory failure with hypercapnia Status: Acute Assessment and Plan: Supplemental oxygen, bronchodilators-management as per primary team and pulmonology Patient has history of heavy tobacco abuse but reports that he has quit tobacco. He was advised to continue to abstain from smoking. (3) COPD exacerbation: Code(s): J44.1 - Chronic obstructive pulmonary disease with (acute) exacerbation Status: Acute Assessment and Plan: Management as per primary team (4) KAL (obstructive sleep apnea): Code(s): G47.33 - Obstructive sleep apnea (adult) (pediatric) Status: Acute Assessment and Plan: CP with supplemental oxygen Subjective Date/time seen: 11/17/24 09:23 Interval history: 11/17/2024-patient reports modest improvement in dyspnea. He states that his heart rate goes up when he coughs. On telemetry, he has been in atrial fibrillation with heart rates in 100s to 110s. Exam Narrative: PHYSICAL EXAMINATION: GENERAL: Morbidly obese male, on supplemental oxygen; no acute distress MENTAL STATUS: affect appropriate to mood EYES: Extraocular movements intact, no pallor EARS: External ears appear normal, hearing grossly normal NOSE: Normal and patent, no discharge MOUTH: Mucous membranes moist, tongue normal NECK: Supple, JVP not appreciable, thick neck CHEST: Good respiratory effort, clear to auscultation HEART: Tachycardic, irregularly irregular rhythm ABDOMEN: Soft, nontender NEUROLOGICAL: Alert, oriented, normal speech, no gross motor deficits MUSCULOSKELETAL: No major deformity, no amputation EXTREMITIES: Mild pedal edema, no clubbing, no cyanosis SKIN: no rash on the exposed area, no cyanosis PSYCHIATRIC: Normal mood, appropriate affect Objective Data Vital Signs Vital Signs: Vital Signs - 24 hr 11/16/24 09:51 11/16/24 11:34 11/16/24 11:48 Temperature 36.4 C Pulse Rate 139 H 106 H 106 H Respiratory Rate 20 20 Blood Pressure 117/74 Pulse Oximetry 80 L 80 L Oxygen Delivery High Flow Therapy with Na Oxygen Flow Rate 60 Fraction of Inspired Oxygen 11/16/24 11:48 11/16/24 11:49 11/16/24 13:00 Temperature Pulse Rate 106 H 106 H 149 H Respiratory Rate Blood Pressure Pulse Oximetry Oxygen Delivery Oxygen Flow Rate Fraction of Inspired Oxygen 11/16/24 13:02 11/16/24 14:30 11/16/24 14:30 Temperature Pulse Rate 146 H 146 H 146 H Respiratory Rate 20 20 Blood Pressure Pulse Oximetry 80 L Oxygen Delivery High Flow Therapy with Na Oxygen Flow Rate 60 Fraction of Inspired Oxygen 11/16/24 15:32 11/16/24 18:00 11/16/24 19:28 Temperature 36.7 C 36.5 C Pulse Rate 105 H 105 H 76 Respiratory Rate 22 H 18 Blood Pressure 127/109 H 128/78 Pulse Oximetry 98 100 Oxygen Delivery Oxygen Flow Rate Fraction of Inspired Oxygen 11/16/24 19:39 11/16/24 20:00 11/16/24 20:00 Temperature Pulse Rate 110 H 103 H 103 H Respiratory Rate Blood Pressure 128/78 Pulse Oximetry 96 Oxygen Delivery High Flow Therapy with Na Oxygen Flow Rate 60 Fraction of Inspired Oxygen 80 11/16/24 20:00 11/16/24 20:51 11/16/24 20:54 Temperature Pulse Rate 104 H 108 H 108 H Respiratory Rate 20 Blood Pressure Pulse Oximetry 96 Oxygen Delivery High Flow Therapy with Na Oxygen Flow Rate 60 Fraction of Inspired Oxygen 87 11/16/24 21:14 11/16/24 22:00 11/16/24 22:00 Temperature Pulse Rate 116 H 101 H 82 Respiratory Rate 20 18 Blood Pressure 125/65 Pulse Oximetry 99 Oxygen Delivery Oxygen Flow Rate Fraction of Inspired Oxygen 11/16/24 22:00 11/16/24 23:42 11/17/24 00:00 Temperature Pulse Rate 87 124 H Respiratory Rate Blood Pressure 125/65 Pulse Oximetry 95 Oxygen Delivery High Flow Therapy with Na Oxygen Flow Rate 50 Fraction of Inspired Oxygen 70 11/17/24 00:00 11/17/24 00:00 11/17/24 00:00 Temperature 36.5 C Pulse Rate 90 90 Respiratory Rate 20 Blood Pressure 142/98 H 142/98 H Pulse Oximetry 100 100 Oxygen Delivery BiPAP Oxygen Flow Rate Fraction of Inspired Oxygen 40 11/17/24 01:37 11/17/24 01:38 11/17/24 01:38 Temperature Pulse Rate 151 H 151 H 151 H Respiratory Rate Blood Pressure 103/63 103/63 103/63 Pulse Oximetry Oxygen Delivery Oxygen Flow Rate Fraction of Inspired Oxygen 11/17/24 01:45 11/17/24 02:00 11/17/24 02:22 Temperature Pulse Rate 119 H 151 H 128 H Respiratory Rate 15 15 Blood Pressure Pulse Oximetry 92 Oxygen Delivery BiPAP Oxygen Flow Rate Fraction of Inspired Oxygen 11/17/24 02:36 11/17/24 04:00 11/17/24 04:00 Temperature 36.6 C Pulse Rate 119 H 120 H 120 H Respiratory Rate 16 18 Blood Pressure 139/60 139/60 Pulse Oximetry 92 Oxygen Delivery Oxygen Flow Rate Fraction of Inspired Oxygen 11/17/24 04:00 11/17/24 04:00 11/17/24 06:00 Temperature Pulse Rate 118 H 99 Respiratory Rate Blood Pressure Pulse Oximetry 92 Oxygen Delivery BiPAP Oxygen Flow Rate Fraction of Inspired Oxygen 40 11/17/24 06:00 11/17/24 06:00 11/17/24 07:15 Temperature Pulse Rate 99 99 94 Respiratory Rate 18 Blood Pressure 144/55 H 144/55 H Pulse Oximetry 96 Oxygen Delivery High Flow Therapy with Na Oxygen Flow Rate 50 Fraction of Inspired Oxygen 70 11/17/24 07:15 11/17/24 07:25 11/17/24 07:55 Temperature 36.6 C Pulse Rate 94 97 116 H Respiratory Rate 118 H 18 22 H Blood Pressure 129/57 L Pulse Oximetry 97 Oxygen Delivery Oxygen Flow Rate Fraction of Inspired Oxygen 11/17/24 08:00 Temperature Pulse Rate Respiratory Rate Blood Pressure Pulse Oximetry 93 Oxygen Delivery High Flow Therapy with Na Oxygen Flow Rate 50 Fraction of Inspired Oxygen Intake/Output Intake/Output: Intake & Output 11/14/24 11/15/24 11/16/24 11/17/24 23:59 23:59 23:59 23:59 Intake Total 2600 1380 2315.6 577.8 Output Total 3150 3550 1750 1250 Balance -550 -2170 565.6 -672.2 Meds/Results Medications: Active Medications Generic Name Dose Route Start Last Admin Trade Name Freq PRN Reason Stop Dose Admin Acetaminophen 650 mg 11/13/24 16:47 11/17/24 08:14 Acetaminophen 325 Mg Tablet PO 650 mg Q4H PRN Administration Mild Pain (1-3) or Fever Hydrocodone Bitart/Acetaminophen 1 tab 11/14/24 20:51 11/17/24 08:57 Hydrocodone/Acetaminophen (*Crx) 5-325 Mg Tablet PO 1 tab Q8H PRN Administration Pain Albuterol 2.5 mg 11/14/24 10:29 Albuterol Sulfate Neb 2.5 Mg/3 Ml Inh INHALATION Q4HRT PRN Shortness Of Breath Apixaban 5 mg 11/16/24 21:00 11/17/24 08:14 Apixaban 5 Mg Tablet PO 5 mg Q12HR SASHA Administration Atorvastatin Calcium 80 mg 11/14/24 21:00 11/16/24 20:52 Atorvastatin 40 Mg Tablet PO 80 mg HS SASHA Administration Dextrose 12.5 gm 11/14/24 20:53 Dextrose 50% 25 Gm/50 Ml Syringe IV PUSH PRN PRN Hypoglycemia Protocol Diltiazem HCl 30 mg 11/16/24 12:00 11/17/24 05:33 Diltiazem Hcl 30 Mg Tablet PO 30 mg Q6HR SASHA Administration Glucagon 1 mg 11/14/24 20:53 Glucagon For Inj 1 Mg Vial IM PRN PRN Hypoglycemia Protocol Glucose 15 gm 11/14/24 20:53 Glucose Oral Gel 15 Gm Of Glucse In 37.5 Gm Tube PO PRN PRN Hypoglycemia Protocol Guaifenesin 1,200 mg 11/16/24 21:00 11/17/24 08:14 Guaifenesin 12 Hr 600 Mg Tabcr PO 1,200 mg Q12HR SASHA Administration Dextrose 1,000 mls @ 100 mls/hr 11/14/24 20:53 Dextrose 5% 1,000 Ml IVPB PRN PRN Hypoglycemia Protocol Diltiazem HCl 100 mg in 100 mls @ 15 mls/hr 11/16/24 08:10 11/17/24 06:00 Cardizem 100 Mg/100 Ml IV CONT 15 mg/hr .Q6H40M SASHA 15 mls/hr Infusion 15 MG/HR Levofloxacin/Dextrose 750 mg in 150 mls @ 100 mls/hr 11/16/24 20:00 11/16/24 22:23 Levaquin 750 Mg/D5w 150 Ml IVPB Infused Q24H SASHA Infusion Vancomycin HCl 1,500 mg in 500 mls @ 250 mls/hr 11/17/24 05:00 11/17/24 05:35 Vancomycin 1,500 Mg/Ns 500 Ml IVPB 250 mls/hr Q12H SASHA Administration Insulin Aspart 4 - 8 units 11/15/24 08:00 11/17/24 08:13 Insulin Aspart (*Bkc) 100 Units/Ml SUB-Q 5 units TIDWM SASHA Administration Protocol Insulin Aspart 10 units 11/16/24 17:00 11/17/24 08:13 Insulin Aspart (*Bkc) 100 Units/Ml SUB-Q 10 units TIDWM SASHA Administration Insulin Glargine 18 units 11/16/24 16:45 11/17/24 05:33 Insulin Glargine (*Bkc) 100 Units/Ml SUB-Q 18 units Q12H SASHA Administration Ipratropium [place] 0.5 mg 11/16/24 02:00 11/17/24 07:10 Ipratropium Br 0.02% Inh Soln 0.5 Mg/2.5 Ml Vial INHALATION 0.5 mg Q6HRT SASHA Administration Levalbuterol HCl 1.25 mg 11/16/24 02:00 11/17/24 07:11 Levalbuterol Neb 1.25 Mg/3 Ml INHALATION 1.25 mg Q6HRT SASHA Administration Lisinopril 30 mg 11/15/24 09:00 11/17/24 08:14 Lisinopril 10 Mg Tablet PO 30 mg DAILY SASHA Administration Methylprednisolone Sodium Succinate 40 mg 11/15/24 10:00 11/17/24 01:40 Methylprednisolone Sod Succ 125 Mg Vial IV PUSH 40 mg Q8H SASHA Administration Nicotine 1 patch 11/15/24 14:45 11/17/24 08:14 Nicotine (*Pbkc) 21 Mg Patch TRANSDERM 1 patch DAILY SASHA Administration Ondansetron HCl 4 mg 11/13/24 16:47 Ondansetron Inj 4 Mg/2 Ml Vial IV PUSH Q4H PRN Nausea Pantoprazole Sodium 40 mg 11/15/24 09:00 11/17/24 08:14 Pantoprazole 40 Mg Tablet PO 40 mg QAM SASHA Administration Fluticasone/Salmeterol 2 puff 11/14/24 20:00 11/17/24 07:10 Fluticasone/Salmeterol 115-21 Mcg Inhaler 1 Puff INHALATION 2 puff Q12HRT SASHA Administration Umeclidinium [place] 1 puff 11/15/24 08:00 11/17/24 07:11 Umeclidinium [place] 62.5 Mcg Ellipta INHALATION 1 puff DAILYRT SASHA Administration Radiology Results: ITS Impressions Chest X-Ray 11/13/24 15:03 IMPRESSION: 1. No acute cardiopulmonary disease. Chest CTA 11/16/24 11:31 IMPRESSION: 1. No pulmonary embolism. 2. No significant change in a 2.5 x 1.7 cm nodule with lobular margins and some central cavitation in the superior segment of the right lower lobe which could be infectious, inflammatory or malignant in etiology. Recommend routine CT- guided biopsy. 3. Mild emphysema. 4. Scattered bronchial mucous plugging in the bilateral lower lobes consistent with bronchitis with dependent consolidation in the dependent aspect of the lower lobes and favor secondary atelectasis over pneumonia. 5. 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 Labs Labs: Laboratory Results - last 24 hr 11/16/24 11/16/24 11/16/24 05:05 11:32 15:33 WBC RBC Hgb Hct MCV MCH MCHC RDW Plt Count MPV Immature Gran % (Auto) Neut % (Auto) Lymph % (Auto) Baxter % (Auto) Eos % (Auto) Baso % (Auto) Lymph # (Auto) [place] # (Auto) Eos # (Auto) Baso # (Auto) Abs Immat Gran (auto) Absolute Neuts (auto) Absolute Nucleated RBC Nucleated RBC % Sodium Potassium Chloride Carbon Dioxide Anion Gap BUN Creatinine Estim Creat Clear Calc Estimated GFR Glucose POC Capillary Glucose 394 H 411 H Calcium Magnesium Total Bilirubin AST ALT Alkaline Phosphatase Total Protein Albumin TSH (Reflex) 0.634 Nasal MRSA (PCR) 11/16/24 11/17/24 11/17/24 20:12 01:41 04:28 WBC 11.6 H RBC 4.72 Hgb 14.2 Hct 44.6 MCV 94.5 MCH 30.1 MCHC 31.8 L RDW 14.7 H Plt Count 223 MPV 10.4 Immature Gran % (Auto) 0.5 Neut % (Auto) 79.8 H Lymph % (Auto) 9.0 L Baxter % (Auto) 10.4 H Eos % (Auto) 0.2 Baso % (Auto) 0.1 L Lymph # (Auto) 1.05 Baxter # (Auto) 1.2 H Eos # (Auto) 0.0 Baso # (Auto) 0.0 Abs Immat Gran (auto) 0.06 H Absolute Neuts (auto) 9.3 H Absolute Nucleated RBC 0.000 Nucleated RBC % 0.0 Sodium 131 L Potassium 4.3 Chloride 95 L Carbon Dioxide 30 Anion Gap 6 BUN 30 H Creatinine 0.68 L Estim Creat Clear Calc 187 Estimated GFR > 60 Glucose 303 H POC Capillary Glucose 318 H Calcium 8.4 Magnesium 2.2 Total Bilirubin 0.5 AST 16 L ALT 21 Alkaline Phosphatase 74 Total Protein 6.0 L Albumin 3.1 L TSH (Reflex) Nasal MRSA (PCR) Not detected 11/17/24 11/17/24 05:31 07:17 WBC RBC Hgb Hct MCV MCH MCHC RDW Plt Count MPV Immature Gran % (Auto) Neut % (Auto) Lymph % (Auto) [place] % (Auto) Eos % (Auto) Baso % (Auto) Lymph # (Auto) Baxter # (Auto) Eos # (Auto) Baso # (Auto) Abs Immat Gran (auto) Absolute Neuts (auto) Absolute Nucleated RBC Nucleated RBC % Sodium Potassium Chloride Carbon Dioxide Anion Gap BUN Creatinine Estim Creat Clear Calc Estimated GFR Glucose POC Capillary Glucose 278 H 270 H Calcium Magnesium Total Bilirubin AST ALT Alkaline Phosphatase Total Protein Albumin TSH (Reflex) Nasal MRSA (PCR)
[2024-11-17 11:23] LABS: Glucose Point of Care 237 mg/dl (65-105)
--- NOTE | 2024-11-17 11:51 | P.PNIM_ITS ---
Progress Note: A&P Assessment and Plan (1) Acute respiratory failure with hypoxia and hypercapnia: Code(s): J96.01 - Acute respiratory failure with hypoxia; J96.02 - Acute respiratory failure with hypercapnia Status: Acute (2) COPD exacerbation: Code(s): J44.1 - Chronic obstructive pulmonary disease with (acute) exacerbation Status: Acute (3) Hypertension: Code(s): I10 - Essential (primary) hypertension Status: Acute (4) Hyperlipidemia: Code(s): E78.5 - Hyperlipidemia, unspecified Status: Acute (5) Obstructive sleep apnea: Code(s): G47.33 - Obstructive sleep apnea (adult) (pediatric) Status: Acute (6) Tobacco use: Code(s): Z72.0 - Tobacco use Status: Acute Plan The patient presented to the emergency department for evaluation of increasing cough and shortness of breath the last couple of days with some confusion this morning COPD exacerbation Patient has history of COPD, patient has worsening shortness breath and productive cough Continue scheduled DuoNeb, start albuterol nebulizer Q 4 p.r.n. albuterol has been switched to leave albuterol due to AFib with RVR on Solu-Medrol 60 mg q.6 hours scheduled. add Symbicort Continue Levaquin IV, and bronchodilators Decrease methylprednisolone to 40 mg q.8 hours IV Nasal MRSA is negative. Stop vancomycin. Continue on levofloxacin Sputum culture pending Acute on chronic respiratory failure Patient has history of chronic hypoxemia Now patient is on high-flow oxygen via nasal cannular Follow-up ABG showed hypercapnia, hypoxemic respiratory failure, pH 7.34, pCO2 64.8 PaO2 continue improved to 85.2 11/14 CTA reviewed Uncontrolled type 2 diabetes Patient is not on medication at home A1c 8.0 Started on Lantus 24 unit daily, aspart 6 unit a.c., continue sliding scale Adjust insulin Smoking cessation is imperative and was discussed. Nicotine patch ordered per patient request. Blood pressures are stable. Continue home medication AFib with RVR new diagnosis. Start heparin drip. Start Cardizem drip. Cardiology consult. Echo on August 2024 with EF 55-60% no significant valvular disease. Check TSH. TSH in August 0.09 DVT prophylaxis heparin drip now started on eliquis Code status full code Subjective Date/time seen: 11/17/24 11:51 Interval history: Overnight his heart rate jumped up his Cardizem was increased to 15. He is on Airvo 50 L FiO2 60% which is improvement Review of Systems Review of Systems: All systems reviewed & are unremarkable except as noted in HPI and below Exam Narrative: GENERAL: Pleasant, in no acute distress. Well-nourished. On Airvo 50 L 60% - EYES: EOMI. Anicteric. - HENT: Moist mucous membranes. - LUNGS: Diminished breath sounds bilat erally no respiratory distress - CARDIOVASCULAR: Regular rate and rhyth m. No murmur. No JVD. - ABDOMEN: Soft, non-tender and non-dist ended. No palpable masses. - EXTREMITIES: No edema. Peripheral puls es 2+. Non-tender. - NEUROLOGIC: No focal neurological defi cits. CN II-XII grossly intact. General weakness - PSYCHIATRIC: Awake, Alert and oriented x 3. Appropriate mood and affect. - SKIN: No rashes or lesions. Warm. - LYMPH: No cervical lymphadenopathy. Objective Data Vital Signs Vital Signs: Vital Signs - 24 hr 11/16/24 13:00 11/16/24 13:02 11/16/24 14:30 Temperature Pulse Rate 149 H 146 H 146 H Respiratory Rate 20 20 Blood Pressure Pulse Oximetry 80 L Oxygen Delivery High Flow Therapy with Na Oxygen Flow Rate 60 Fraction of Inspired Oxygen 69 11/16/24 14:30 11/16/24 15:32 11/16/24 18:00 Temperature 98.1 F Pulse Rate 146 H 105 H 105 H Respiratory Rate 22 H Blood Pressure 127/109 H Pulse Oximetry 98 Oxygen Delivery Oxygen Flow Rate Fraction of Inspired Oxygen 11/16/24 19:28 11/16/24 19:39 11/16/24 20:00 Temperature 97.7 F Pulse Rate 76 110 H 103 H Respiratory Rate 18 Blood Pressure 128/78 Pulse Oximetry 100 96 Oxygen Delivery High Flow Therapy with Na Oxygen Flow Rate 60 Fraction of Inspired Oxygen 80 11/16/24 20:00 11/16/24 20:00 11/16/24 20:51 Temperature Pulse Rate 103 H 104 H 108 H Respiratory Rate 20 Blood Pressure 128/78 Pulse Oximetry Oxygen Delivery Oxygen Flow Rate Fraction of Inspired Oxygen 11/16/24 20:54 11/16/24 21:14 11/16/24 22:00 Temperature Pulse Rate 108 H 116 H 101 H Respiratory Rate 20 Blood Pressure Pulse Oximetry 96 Oxygen Delivery High Flow Therapy with Na Oxygen Flow Rate 60 Fraction of Inspired Oxygen 87 11/16/24 22:00 11/16/24 22:00 11/16/24 23:42 Temperature Pulse Rate 82 87 Respiratory Rate 18 Blood Pressure 125/65 125/65 Pulse Oximetry 99 95 Oxygen Delivery High Flow Therapy with Na Oxygen Flow Rate 50 Fraction of Inspired Oxygen 70 11/17/24 00:00 11/17/24 00:00 11/17/24 00:00 Temperature 97.7 F Pulse Rate 124 H 90 90 Respiratory Rate 20 Blood Pressure 142/98 H 142/98 H Pulse Oximetry 100 Oxygen Delivery Oxygen Flow Rate Fraction of Inspired Oxygen 11/17/24 00:00 11/17/24 01:37 11/17/24 01:38 Temperature Pulse Rate 151 H 151 H Respiratory Rate Blood Pressure 103/63 103/63 Pulse Oximetry 100 Oxygen Delivery BiPAP Oxygen Flow Rate Fraction of Inspired Oxygen 40 11/17/24 01:38 11/17/24 01:45 11/17/24 02:00 Temperature Pulse Rate 151 H 119 H 151 H Respiratory Rate 15 Blood Pressure 103/63 Pulse Oximetry 92 Oxygen Delivery BiPAP Oxygen Flow Rate Fraction of Inspired Oxygen 11/17/24 02:22 11/17/24 02:36 11/17/24 04:00 Temperature Pulse Rate 128 H 119 H 120 H Respiratory Rate 15 16 Blood Pressure 139/60 Pulse Oximetry Oxygen Delivery Oxygen Flow Rate Fraction of Inspired Oxygen 11/17/24 04:00 11/17/24 04:00 11/17/24 04:00 Temperature 97.8 F Pulse Rate 120 H 118 H Respiratory Rate 18 Blood Pressure 139/60 Pulse Oximetry 92 92 Oxygen Delivery BiPAP Oxygen Flow Rate Fraction of Inspired Oxygen 40 11/17/24 06:00 11/17/24 06:00 11/17/24 06:00 Temperature Pulse Rate 99 99 99 Respiratory Rate Blood Pressure 144/55 H 144/55 H Pulse Oximetry Oxygen Delivery Oxygen Flow Rate Fraction of Inspired Oxygen 11/17/24 07:15 11/17/24 07:15 11/17/24 07:25 Temperature Pulse Rate 94 94 97 Respiratory Rate 18 118 H 18 Blood Pressure Pulse Oximetry 96 Oxygen Delivery High Flow Therapy with Na Oxygen Flow Rate 50 Fraction of Inspired Oxygen 70 11/17/24 07:55 11/17/24 08:00 11/17/24 08:00 Temperature 97.9 F Pulse Rate 116 H 111 H Respiratory Rate 22 H Blood Pressure 129/57 L 129/57 L Pulse Oximetry 97 93 Oxygen Delivery High Flow Therapy with Na Oxygen Flow Rate 50 Fraction of Inspired Oxygen 11/17/24 08:00 11/17/24 09:45 11/17/24 09:55 Temperature Pulse Rate 153 H 111 H 116 H Respiratory Rate Blood Pressure 132/67 132/67 Pulse Oximetry 97 Oxygen Delivery Oxygen Flow Rate Fraction of Inspired Oxygen 11/17/24 10:00 Temperature Pulse Rate 116 H Respiratory Rate Blood Pressure Pulse Oximetry Oxygen Delivery Oxygen Flow Rate Fraction of Inspired Oxygen Intake/Output Intake/Output: Intake & Output 11/14/24 11/15/24 11/16/24 11/17/24 23:59 23:59 23:59 23:59 Intake Total 2600 1380 2315.6 607.8 Output Total 3150 3550 1750 1250 Balance -550 -2170 565.6 -642.2 Meds/Results Medications: Active Medications Generic Name Dose Route Start Last Admin Trade Name Freq PRN Reason Stop Dose Admin Acetaminophen 650 mg 11/13/24 16:47 11/17/24 08:14 Acetaminophen 325 Mg Tablet PO 650 mg Q4H PRN Administration Mild Pain (1-3) or Fever Hydrocodone Bitart/Acetaminophen 1 tab 11/14/24 20:51 11/17/24 08:57 Hydrocodone/Acetaminophen (*Crx) 5-325 Mg Tablet PO 1 tab Q8H PRN Administration Pain Albuterol 2.5 mg 11/14/24 10:29 Albuterol Sulfate Neb 2.5 Mg/3 Ml Inh INHALATION Q4HRT PRN Shortness Of Breath Apixaban 5 mg 11/16/24 21:00 11/17/24 08:14 Apixaban 5 Mg Tablet PO 5 mg Q12HR SASHA Administration Atorvastatin Calcium 80 mg 11/14/24 21:00 11/16/24 20:52 Atorvastatin 40 Mg Tablet PO 80 mg HS SASHA Administration Dextrose 12.5 gm 11/14/24 20:53 Dextrose 50% 25 Gm/50 Ml Syringe IV PUSH PRN PRN Hypoglycemia Protocol Diltiazem HCl 60 mg 11/17/24 13:00 Diltiazem Hcl 60 Mg Tablet PO TID SASHA Glucagon 1 mg 11/14/24 20:53 Glucagon For Inj 1 Mg Vial IM PRN PRN Hypoglycemia Protocol Glucose 15 gm 11/14/24 20:53 Glucose Oral Gel 15 Gm Of Glucse In 37.5 Gm Tube PO PRN PRN Hypoglycemia Protocol Guaifenesin 1,200 mg 11/16/24 21:00 11/17/24 08:14 Guaifenesin 12 Hr 600 Mg Tabcr PO 1,200 mg Q12HR SASHA Administration Dextrose 1,000 mls @ 100 mls/hr 11/14/24 20:53 Dextrose 5% 1,000 Ml IVPB PRN PRN Hypoglycemia Protocol Diltiazem HCl 100 mg in 100 mls @ 15 mls/hr 11/16/24 08:10 11/17/24 09:45 Cardizem 100 Mg/100 Ml IV CONT 15 mg/hr .Q6H40M SASHA 15 mls/hr Administration 15 MG/HR Levofloxacin/Dextrose 750 mg in 150 mls @ 100 mls/hr 11/16/24 20:00 11/16/24 22:23 Levaquin 750 Mg/D5w 150 Ml IVPB Infused Q24H SASHA Infusion Vancomycin HCl 1,500 mg in 500 mls @ 250 mls/hr 11/17/24 05:00 11/17/24 05:35 Vancomycin 1,500 Mg/Ns 500 Ml IVPB 250 mls/hr Q12H SASHA Administration Insulin Aspart 4 - 8 units 11/15/24 08:00 11/17/24 08:13 Insulin Aspart (*Bkc) 100 Units/Ml SUB-Q 5 units TIDWM SASHA Administration Protocol Insulin Aspart 10 units 11/16/24 17:00 11/17/24 08:13 Insulin Aspart (*Bkc) 100 Units/Ml SUB-Q 10 units TIDWM SASHA Administration Insulin Glargine 18 units 11/16/24 16:45 11/17/24 05:33 Insulin Glargine (*Bkc) 100 Units/Ml SUB-Q 18 units Q12H SASHA Administration Ipratropium [place] 0.5 mg 11/16/24 02:00 11/17/24 07:10 Ipratropium Br 0.02% Inh Soln 0.5 Mg/2.5 Ml Vial INHALATION 0.5 mg Q6HRT SASHA Administration Levalbuterol HCl 1.25 mg 11/16/24 02:00 11/17/24 07:11 Levalbuterol Neb 1.25 Mg/3 Ml INHALATION 1.25 mg Q6HRT SASHA Administration Lisinopril 30 mg 11/15/24 09:00 11/17/24 08:14 Lisinopril 10 Mg Tablet PO 30 mg DAILY SASHA Administration Methylprednisolone Sodium Succinate 40 mg 11/15/24 10:00 11/17/24 09:55 Methylprednisolone Sod Succ 125 Mg Vial IV PUSH 40 mg Q8H SASHA Administration Nicotine 1 patch 11/15/24 14:45 11/17/24 08:14 Nicotine (*Pbkc) 21 Mg Patch TRANSDERM 1 patch DAILY SASHA Administration Ondansetron HCl 4 mg 11/13/24 16:47 Ondansetron Inj 4 Mg/2 Ml Vial IV PUSH Q4H PRN Nausea Pantoprazole Sodium 40 mg 11/15/24 09:00 11/17/24 08:14 Pantoprazole 40 Mg Tablet PO 40 mg QAM SASHA Administration Fluticasone/Salmeterol 2 puff 11/14/24 20:00 11/17/24 07:10 Fluticasone/Salmeterol 115-21 Mcg Inhaler 1 Puff INHALATION 2 puff Q12HRT SASHA Administration Umeclidinium [place] 1 puff 11/15/24 08:00 11/17/24 07:11 Umeclidinium [place] 62.5 Mcg Ellipta INHALATION 1 puff DAILYRT SASHA Administration Radiology Results: ITS Impressions Chest X-Ray 11/13/24 15:03 IMPRESSION: 1. No acute cardiopulmonary disease. Chest CTA 11/16/24 11:31 IMPRESSION: 1. No pulmonary embolism. 2. No significant change in a 2.5 x 1.7 cm nodule with lobular margins and some central cavitation in the superior segment of the right lower lobe which could be infectious, inflammatory or malignant in etiology. Recommend routine CT- guided biopsy. 3. Mild emphysema. 4. Scattered bronchial mucous plugging in the bilateral lower lobes consistent with bronchitis with dependent consolidation in the dependent aspect of the lower lobes and favor secondary atelectasis over pneumonia. 5. 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 Labs Labs: Laboratory Results - last 24 hr 11/16/24 11/16/24 11/17/24 15:33 20:12 01:41 WBC RBC Hgb Hct MCV MCH MCHC RDW Plt Count MPV Immature Gran % (Auto) Neut % (Auto) Lymph % (Auto) [place] % (Auto) Eos % (Auto) Baso % (Auto) Lymph # (Auto) [place] # (Auto) Eos # (Auto) Baso # (Auto) Abs Immat Gran (auto) Absolute Neuts (auto) Absolute Nucleated RBC Nucleated RBC % Sodium Potassium Chloride Carbon Dioxide Anion Gap BUN Creatinine Estim Creat Clear Calc Estimated GFR Glucose POC Capillary Glucose 411 H 318 H Calcium Magnesium Total Bilirubin AST ALT Alkaline Phosphatase Total Protein Albumin Nasal MRSA (PCR) Not detected 11/17/24 11/17/24 11/17/24 04:28 05:31 07:17 WBC 11.6 H RBC 4.72 Hgb 14.2 Hct 44.6 MCV 94.5 MCH 30.1 MCHC 31.8 L RDW 14.7 H Plt Count 223 MPV 10.4 Immature Gran % (Auto) 0.5 Neut % (Auto) 79.8 H Lymph % (Auto) 9.0 L [place] % (Auto) 10.4 H Eos % (Auto) 0.2 Baso % (Auto) 0.1 L Lymph # (Auto) 1.05 [place] # (Auto) 1.2 H Eos # (Auto) 0.0 Baso # (Auto) 0.0 Abs Immat Gran (auto) 0.06 H Absolute Neuts (auto) 9.3 H Absolute Nucleated RBC 0.000 Nucleated RBC % 0.0 Sodium 131 L Potassium 4.3 Chloride 95 L Carbon Dioxide 30 Anion Gap 6 BUN 30 H Creatinine 0.68 L Estim Creat Clear Calc 187 Estimated GFR > 60 Glucose 303 H POC Capillary Glucose 278 H 270 H Calcium 8.4 Magnesium 2.2 Total Bilirubin 0.5 AST 16 L ALT 21 Alkaline Phosphatase 74 Total Protein 6.0 L Albumin 3.1 L Nasal MRSA (PCR) 11/17/24 11:15 WBC RBC Hgb Hct MCV MCH MCHC RDW Plt Count MPV Immature Gran % (Auto) Neut % (Auto) Lymph % (Auto) [place] % (Auto) Eos % (Auto) Baso % (Auto) Lymph # (Auto) [place] # (Auto) Eos # (Auto) Baso # (Auto) Abs Immat Gran (auto) Absolute Neuts (auto) Absolute Nucleated RBC Nucleated RBC % Sodium Potassium Chloride Carbon Dioxide Anion Gap BUN Creatinine Estim Creat Clear Calc Estimated GFR Glucose POC Capillary Glucose 237 H Calcium Magnesium Total Bilirubin AST ALT Alkaline Phosphatase Total Protein Albumin Nasal MRSA (PCR)
[2024-11-17] MEDS: dilTIAZem HCL 60 MG TABLET PO ×2 (11:59→16:06)
[2024-11-17] MEDS: FUROSEMIDE INJ 40 MG/4 ML VIAL IV PUSH (12:00)
[2024-11-17] MEDS: ACETYLCYSTEINE 20% INHAL SOLN 800 MG/4 ML VIAL 200 MG INHALATION ×2 (14:55→22:11)
[2024-11-17 16:12] LABS: Glucose Point of Care 374 mg/dl (65-105)
[2024-11-17] MEDS: levoFLOXacin 750 MG/D5W 150 ML 750 MG/150 ML BAG 100 MG IVPB (20:32)
[2024-11-17] MEDS: ATORVASTATIN 40 MG TABLET 80 MG PO (20:37)
[2024-11-17 21:42] LABS: Glucose Point of Care 279 mg/dl (65-105)
[2024-11-18] VITALS (38 sets, daily range): BP systolic 107–143; BP diastolic 51–72; PULSE 78–144; RESP 18–24; TEMP 36.3–37.1; O2SAT 90–97
[2024-11-18] MEDS: LEVALBUTEROL NEB 1.25 MG/3 ML INHALATION ×4 (01:17→20:51)
[2024-11-18] MEDS: IPRATROPIUM BR 0.02% INH SOLN 0.5 MG/2.5 ML VIAL INHALATION ×5 (01:17→20:51)
[2024-11-18] MEDS: methylPREDNISolone SOD SUCC 40 MG VIAL IV PUSH ×2 (02:33→09:08)
[2024-11-18] MEDS: ACETYLCYSTEINE 20% INHAL SOLN 800 MG/4 ML VIAL 200 MG INHALATION ×4 (03:56→20:51)
[2024-11-18] MEDS: dilTIAZem 100 MG/100 ML 100 MG/100 ML BAG 15 MG IV CONT ×4 (04:12→23:50)
[2024-11-18 05:55] LABS: Basophils Percent Auto 0.1 % (0.2-1.2); Hematocrit 45.8 % (42.0-52.0); Hemoglobin 14.8 g/dL (14.0-18.0); Immature Granulocyte Absolute 0.11 K/mm3 (0.00-0.031); Immature Granulocyte Percent A 1.1 % (0-0.5); Lymphocytes Percent Auto 4.1 % (18.3-44.2); Mean Corpuscular HGB Conc 32.3 g/dl (32-36); Mean Corpuscular Hemoglobin 30.1 pg (26-34); Mean Corpuscular Volume 93.1 fl (80-100); Mean Platelet Volume 10.3 fl (7.4-10.4); Monocytes Absolute Auto 0.5 K/mm3 (0.1-0.6); Monocytes Percent Auto 5.5 % (2.6-8.5); Neutrophils Absolute Auto 8.7 K/mm3 (1.3-6.7); Neutrophils Percent Auto 89.2 % (45.5-73.1); Platelet Count Result 197 k/mm3 (150-375); Red Blood Count 4.92 M/mm3 (4.6-6.20); Red Cell Distribution Width 14.4 % (11.5-14.5); White Blood Count 9.8 K/mm3 (4.5-10.0)
[2024-11-18 06:08] LABS: Alanine Aminotransferase 27 U/L (6-50); Albumin Level 3.3 g/dL (3.5-5.1); Alkaline Phosphatase 75 U/L (38-126); Anion Gap 8 mmol/L (4-12); Aspartate Amino Transferase 18 U/L (17-59); Bilirubin,Total 0.7 mg/dL (0.2-1.3); Blood Urea Nitrogen 29 mg/dL (9-20); Calcium 8.4 mg/dL (8.4-10.2); Carbon Dioxide 29 mmol/L (22-30); Chloride 96 mmol/L (98-107); Estimated CRCL calculation 178 ml/min; Estimated Glomerular Filt Rate > 60; Glucose 240 mg/dL (65-110); Magnesium 2.2 mg/dL (1.6-2.3); Potassium 4.7 mmol/L (3.4-5.0); Sodium 133 mmol/L (137-145)
[2024-11-18] MEDS: INSULIN GLARGINE (*BKC) 100 UNITS/ML 18 UNITS SUB-Q ×2 (06:15→16:46)
[2024-11-18 07:24] LABS: Glucose Point of Care 245 mg/dl (65-105)
[2024-11-18] MEDS: PANTOPRAZOLE 40 MG TABLET PO (08:59)
[2024-11-18] MEDS: guaiFENesin 12 HR 600 MG TABCR 1200 MG PO ×2 (08:59→20:23)
[2024-11-18] MEDS: lisinopriL 10 MG TABLET 30 MG PO (08:59)
[2024-11-18] MEDS: APIXABAN 5 MG TABLET PO ×2 (08:59→20:23)
[2024-11-18] MEDS: NICOTINE (*PBKC) 21 MG PATCH 1 PATCH TRANSDERM (09:00)
[2024-11-18] MEDS: dilTIAZem HCL 60 MG TABLET PO ×3 (09:00→16:45)
[2024-11-18] MEDS: HYDROcodone/acetaminophen (*CRX) 5-325 MG TABLET 1 TAB PO ×2 (09:02→22:12)
[2024-11-18] MEDS: INSULIN ASPART (*BKC) 100 UNITS/ML 10 UNITS SUB-Q ×3 (09:05→16:46)
[2024-11-18] MEDS: INSULIN ASPART (*BKC) 100 UNITS/ML SUB-Q ×3 (09:05→16:47)
[2024-11-18] MEDS: FLUTICASONE/SALMETEROL 115-21 MCG INHALER 1 PUFF 2 PUFF INHALATION ×2 (09:10→20:51)
[2024-11-18] MEDS: UMECLIDINIUM BROMIDE 62.5 MCG ELLIPTA 1 PUFF INHALATION (09:11)
--- NOTE | 2024-11-18 10:41 | P.PNCA_ITS ---
Progress Note: A&P Assessment and Plan (1) Atrial fibrillation with RVR: Code(s): I48.91 - Unspecified atrial fibrillation Status: Acute Assessment and Plan: 54-year-old male with hypertension, diabetes mellitus, COPD, chronic respiratory failure on home oxygen, KAL on CPAP, dyslipidemia, morbid obesity, history of heavy tobacco abuse. Patient admitted to the hospital with acute on chronic hypoxemic and hypercarbic respiratory failure. He went into AFib with RVR during hospitalization (paroxysmal versus persistent). Recent LV systolic function on echo reported to be preserved. -continue IV diltiazem for rate control, titrate dose as needed, being bridged with oral diltiazem (dose changed to 60 mg t.i.d). May discharge home on long- acting diltiazem. -Will also add metoprolol 25mg b.i.d. as his heart rate remains consistently elevated -continue anticoagulation with apixaban 5 mg p.o. b.i.d.. -continue to monitor on telemetry. May consider SARINA guided DC cardioversion if heart rate is difficult to control; emergent DC cardioversion for hemodynamically unstable AFib with RVR -plan discussed with the patient and he is in agreement. He will follow-up with Dr. Lei after hospital discharge. Follow up information provided to the patient. (2) Acute on chronic respiratory failure with hypoxia and hypercapnia: Code(s): J96.21 - Acute and chronic respiratory failure with hypoxia; J96.22 - Acute and chronic respiratory failure with hypercapnia Status: Acute Assessment and Plan: Supplemental oxygen, bronchodilators-management as per primary team and pulmonology Patient has history of heavy tobacco abuse but reports that he has quit tobacco. He was advised to continue to abstain from smoking. (3) COPD exacerbation: Code(s): J44.1 - Chronic obstructive pulmonary disease with (acute) exacerbation Status: Acute Assessment and Plan: Management as per primary team (4) KAL (obstructive sleep apnea): Code(s): G47.33 - Obstructive sleep apnea (adult) (pediatric) Status: Acute Assessment and Plan: CP with supplemental oxygen Subjective Date/time seen: 11/18/24 10:41 Interval history: Cardiology follow up visit 11/17/2024-patient reports modest improvement in dyspnea. He states that his heart rate goes up when he coughs. On telemetry, he has been in atrial fibrillation with heart rates in 100s to 110s. 11/18/2024:Feeling okay today. Some improvement in breathing. Coughing up thick mucus. Telemetry shows atrial fibrillation with rates frequently in the 120-130bpm range and elevations to the 150's with activity and coughing. Denies palpitations, chest pain. Review of Systems Review of Systems: General: Negative for fever, chills, fatigue Psychological: Negative for anxiety, depression Ophthalmic: negative for loss of vision ENT: Negative for epistaxis, headaches Allergy and immunology: Negative for hives, nasal congestion Hematologic and lymphatic: Negative for overt bleeding problems Endocrine: Negative for hot flashes, palpitations Respiratory: Positive for cough and worsening dyspnea Cardiovascular: Negative for chest pain, positive for worsening dyspnea Gastrointestinal: Negative for abdominal pain, nausea, vomiting, hematochezia Musculoskeletal: Negative for myalgia, joint pains Neurological: Negative for weakness Dermatological: Negative for rash, skin discoloration Exam Narrative: PHYSICAL EXAMINATION: GENERAL: Morbidly obese male, on supplemental oxygen; no acute distress MENTAL STATUS: affect appropriate to mood EYES: Extraocular movements intact, no pallor EARS: External ears appear normal, hearing grossly normal NOSE: Normal and patent, no discharge MOUTH: Mucous membranes moist, tongue normal NECK: Supple, JVP not appreciable, thick neck CHEST: Good respiratory effort, clear to auscultation HEART: Tachycardic, irregularly irregular rhythm ABDOMEN: Soft, nontender NEUROLOGICAL: Alert, oriented, normal speech, no gross motor deficits MUSCULOSKELETAL: No major deformity, no amputation EXTREMITIES: Mild pedal edema, no clubbing, no cyanosis SKIN: no rash on the exposed area, no cyanosis PSYCHIATRIC: Normal mood, appropriate affect Objective Data Vital Signs Vital Signs: Vital Signs - 24 hr 11/17/24 11:46 11/17/24 12:00 11/17/24 12:00 Temperature 36.8 C Pulse Rate 118 H 157 H Respiratory Rate 24 H Blood Pressure 127/80 Pulse Oximetry 94 95 Oxygen Delivery High Flow Therapy with Na Oxygen Flow Rate 50 Fraction of Inspired Oxygen 70 11/17/24 13:15 11/17/24 13:15 11/17/24 13:25 Temperature Pulse Rate 112 H 112 H 107 H Respiratory Rate 20 20 20 Blood Pressure Pulse Oximetry 98 Oxygen Delivery High Flow Therapy with Na Oxygen Flow Rate 50 Fraction of Inspired Oxygen 70 11/17/24 14:00 11/17/24 14:00 11/17/24 15:57 Temperature Pulse Rate 158 H 146 H 95 Respiratory Rate Blood Pressure 109/67 121/65 Pulse Oximetry Oxygen Delivery Oxygen Flow Rate Fraction of Inspired Oxygen 11/17/24 15:57 11/17/24 15:57 11/17/24 16:00 Temperature 36.9 C Pulse Rate 95 95 Respiratory Rate 22 H Blood Pressure 121/65 121/65 Pulse Oximetry 93 97 Oxygen Delivery High Flow Therapy with Na Oxygen Flow Rate 50 Fraction of Inspired Oxygen 70 11/17/24 16:00 11/17/24 18:00 11/17/24 18:00 Temperature Pulse Rate 99 90 98 Respiratory Rate Blood Pressure 123/77 Pulse Oximetry 97 Oxygen Delivery Oxygen Flow Rate Fraction of Inspired Oxygen 11/17/24 20:00 11/17/24 20:00 11/17/24 20:00 Temperature 36.8 C Pulse Rate 123 H 107 H Respiratory Rate 24 H Blood Pressure 110/69 Pulse Oximetry 96 95 Oxygen Delivery High Flow Therapy with Na Oxygen Flow Rate 50 Fraction of Inspired Oxygen 70 11/17/24 21:47 11/17/24 21:47 11/17/24 22:00 Temperature 36.7 C Pulse Rate 113 H 113 H 65 Respiratory Rate 20 Blood Pressure 124/64 Pulse Oximetry 97 Oxygen Delivery Oxygen Flow Rate Fraction of Inspired Oxygen 11/17/24 22:00 11/17/24 22:00 11/17/24 22:13 Temperature Pulse Rate 111 H 65 96 Respiratory Rate 20 Blood Pressure 124/64 Pulse Oximetry Oxygen Delivery Oxygen Flow Rate Fraction of Inspired Oxygen 11/17/24 22:35 11/17/24 23:52 11/18/24 00:00 Temperature 36.4 C Pulse Rate 96 119 H 112 H Respiratory Rate 20 20 18 Blood Pressure 113/56 L Pulse Oximetry 93 93 Oxygen Delivery BiPAP Oxygen Flow Rate Fraction of Inspired Oxygen 11/18/24 00:00 11/18/24 00:00 11/18/24 00:00 Temperature Pulse Rate 112 H 101 H Respiratory Rate Blood Pressure 113/56 L Pulse Oximetry 95 Oxygen Delivery BiPAP Oxygen Flow Rate Fraction of Inspired Oxygen 40 11/18/24 02:00 11/18/24 02:00 11/18/24 03:18 Temperature 36.7 C Pulse Rate 123 H 109 H 123 H Respiratory Rate 24 H Blood Pressure 114/59 L 114/59 L Pulse Oximetry 93 Oxygen Delivery Oxygen Flow Rate Fraction of Inspired Oxygen 11/18/24 03:20 11/18/24 03:56 11/18/24 04:00 Temperature Pulse Rate 102 H 89 Respiratory Rate 22 H Blood Pressure Pulse Oximetry 93 95 Oxygen Delivery BiPAP BiPAP Oxygen Flow Rate Fraction of Inspired Oxygen 40 11/18/24 04:00 11/18/24 04:12 11/18/24 04:12 Temperature 36.8 C Pulse Rate 79 90 90 Respiratory Rate 22 H Blood Pressure 108/68 Pulse Oximetry 94 Oxygen Delivery Oxygen Flow Rate Fraction of Inspired Oxygen 11/18/24 05:51 11/18/24 06:00 11/18/24 06:00 Temperature Pulse Rate 106 H 90 90 Respiratory Rate 20 Blood Pressure 108/68 108/68 Pulse Oximetry 94 Oxygen Delivery Oxygen Flow Rate Fraction of Inspired Oxygen 11/18/24 07:55 11/18/24 08:00 11/18/24 08:00 Temperature 36.6 C Pulse Rate 112 H 116 H Respiratory Rate 20 Blood Pressure 132/68 Pulse Oximetry 90 91 Oxygen Delivery High Flow Therapy with Na Oxygen Flow Rate 50 Fraction of Inspired Oxygen 35 11/18/24 10:00 11/18/24 10:00 Temperature Pulse Rate 125 H 117 H Respiratory Rate Blood Pressure 114/72 Pulse Oximetry 92 Oxygen Delivery Oxygen Flow Rate Fraction of Inspired Oxygen Intake/Output Intake/Output: Intake & Output 11/15/24 11/16/24 11/17/24 11/18/24 23:59 23:59 23:59 23:59 Intake Total 1380 2315.6 4076.6 1451.0 Output Total 3550 1750 3125 1250 Balance -2170 565.6 951.6 201.0 Meds/Results Medications: Active Medications Generic Name Dose Route Start Last Admin Trade Name Freq PRN Reason Stop Dose Admin Acetaminophen 650 mg 11/13/24 16:47 11/17/24 15:11 Acetaminophen 325 Mg Tablet PO 650 mg Q4H PRN Administration Mild Pain (1-3) or Fever Hydrocodone Bitart/Acetaminophen 1 tab 11/14/24 20:51 11/18/24 09:02 Hydrocodone/Acetaminophen (*Crx) 5-325 Mg Tablet PO 1 tab Q8H PRN Administration Pain Acetylcysteine 200 mg 11/17/24 14:00 11/18/24 09:10 Acetylcysteine 20% Inhal Soln 800 Mg/4 Ml Vial INHALATION 200 mg Q6HRT SASHA Administration Albuterol 2.5 mg 11/14/24 10:29 Albuterol Sulfate Neb 2.5 Mg/3 Ml Inh INHALATION Q4HRT PRN Shortness Of Breath Apixaban 5 mg 11/16/24 21:00 11/18/24 08:59 Apixaban 5 Mg Tablet PO 5 mg Q12HR SASHA Administration Atorvastatin Calcium 80 mg 11/14/24 21:00 11/17/24 20:37 Atorvastatin 40 Mg Tablet PO 80 mg HS SASHA Administration Dextrose 12.5 gm 11/14/24 20:53 Dextrose 50% 25 Gm/50 Ml Syringe IV PUSH PRN PRN Hypoglycemia Protocol Diltiazem HCl 60 mg 11/17/24 13:00 11/18/24 09:00 Diltiazem Hcl 60 Mg Tablet PO 60 mg TID SASHA Administration Glucagon 1 mg 11/14/24 20:53 Glucagon For Inj 1 Mg Vial IM PRN PRN Hypoglycemia Protocol Glucose 15 gm 11/14/24 20:53 Glucose Oral Gel 15 Gm Of Glucse In 37.5 Gm Tube PO PRN PRN Hypoglycemia Protocol Guaifenesin 1,200 mg 11/16/24 21:00 11/18/24 08:59 Guaifenesin 12 Hr 600 Mg Tabcr PO 1,200 mg Q12HR SASHA Administration Dextrose 1,000 mls @ 100 mls/hr 11/14/24 20:53 Dextrose 5% 1,000 Ml IVPB PRN PRN Hypoglycemia Protocol Diltiazem HCl 100 mg in 100 mls @ 15 mls/hr 11/16/24 08:10 11/18/24 06:00 Cardizem 100 Mg/100 Ml IV CONT 15 mg/hr .Q6H40M SASHA 15 mls/hr Infusion 15 MG/HR Levofloxacin/Dextrose 750 mg in 150 mls @ 100 mls/hr 11/16/24 20:00 11/17/24 20:32 Levaquin 750 Mg/D5w 150 Ml IVPB 100 mls/hr Q24H SASHA Administration Insulin Aspart 4 - 8 units 11/15/24 08:00 11/18/24 09:05 Insulin Aspart (*Bkc) 100 Units/Ml SUB-Q 4 units TIDWM SASHA Administration Protocol Insulin Aspart 10 units 11/16/24 17:00 11/18/24 09:05 Insulin Aspart (*Bkc) 100 Units/Ml SUB-Q 10 units TIDWM SASHA Administration Insulin Glargine 18 units 11/16/24 16:45 11/18/24 06:15 Insulin Glargine (*Bkc) 100 Units/Ml SUB-Q 18 units Q12H SASHA Administration Ipratropium [facility] 0.5 mg 11/16/24 02:00 11/18/24 09:11 Ipratropium Br 0.02% Inh Soln 0.5 Mg/2.5 Ml Vial INHALATION 0.5 mg Q6HRT SASHA Administration Levalbuterol HCl 1.25 mg 11/16/24 02:00 11/18/24 09:11 Levalbuterol Neb 1.25 Mg/3 Ml INHALATION 1.25 mg Q6HRT SASHA Administration Lisinopril 30 mg 11/15/24 09:00 11/18/24 08:59 Lisinopril 10 Mg Tablet PO 30 mg DAILY SASHA Administration Methylprednisolone Sodium Succinate 40 mg 11/18/24 02:00 11/18/24 09:08 Methylprednisolone Sod Succ 40 Mg Vial IV PUSH 40 mg Q8H SASHA Administration Nicotine 1 patch 11/15/24 14:45 11/18/24 09:00 Nicotine (*Pbkc) 21 Mg Patch TRANSDERM 1 patch DAILY SASHA Administration Ondansetron HCl 4 mg 11/13/24 16:47 Ondansetron Inj 4 Mg/2 Ml Vial IV PUSH Q4H PRN Nausea Pantoprazole Sodium 40 mg 11/15/24 09:00 11/18/24 08:59 Pantoprazole 40 Mg Tablet PO 40 mg QAM SASHA Administration Fluticasone/Salmeterol 2 puff 11/14/24 20:00 11/18/24 09:10 Fluticasone/Salmeterol 115-21 Mcg Inhaler 1 Puff INHALATION 2 puff Q12HRT SASHA Administration Umeclidinium [facility] 1 puff 11/15/24 08:00 11/18/24 09:11 Umeclidinium [facility] 62.5 Mcg Ellipta INHALATION 1 puff DAILYRT SASHA Administration Radiology Results: ITS Impressions Chest CTA 11/16/24 11:31 IMPRESSION: 1. No pulmonary embolism. 2. No significant change in a 2.5 x 1.7 cm nodule with lobular margins and some central cavitation in the superior segment of the right lower lobe which could be infectious, inflammatory or malignant in etiology. Recommend routine CT- guided biopsy. 3. Mild emphysema. 4. Scattered bronchial mucous plugging in the bilateral lower lobes consistent with bronchitis with dependent consolidation in the dependent aspect of the lower lobes and favor secondary atelectasis over pneumonia. 5. 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 Chest X-Ray 11/18/24 06:51 Impression: Discoid left basilar atelectasis, less likely pneumonia. Right lung clear. Labs Labs: Laboratory Results - last 24 hr 11/17/24 11/17/24 11/17/24 11:15 16:08 21:13 WBC RBC Hgb Hct MCV MCH MCHC RDW Plt Count MPV Immature Gran % (Auto) Neut % (Auto) Lymph % (Auto) [place] % (Auto) Eos % (Auto) Baso % (Auto) Lymph # (Auto) [place] # (Auto) Eos # (Auto) Baso # (Auto) Abs Immat Gran (auto) Absolute Neuts (auto) Absolute Nucleated RBC Nucleated RBC % Sodium Potassium Chloride Carbon Dioxide Anion Gap BUN Creatinine Estim Creat Clear Calc Estimated GFR Glucose POC Capillary Glucose 237 H 374 H 279 H Calcium Magnesium Total Bilirubin AST ALT Alkaline Phosphatase Total Protein Albumin 11/18/24 11/18/24 05:25 07:13 WBC 9.8 RBC 4.92 Hgb 14.8 Hct 45.8 MCV 93.1 MCH 30.1 MCHC 32.3 RDW 14.4 Plt Count 197 MPV 10.3 Immature Gran % (Auto) 1.1 H Neut % (Auto) 89.2 H Lymph % (Auto) 4.1 L [place] % (Auto) 5.5 Eos % (Auto) 0.0 Baso % (Auto) 0.1 L Lymph # (Auto) 0.40 L [place] # (Auto) 0.5 Eos # (Auto) 0.0 Baso # (Auto) 0.0 Abs Immat Gran (auto) 0.11 H Absolute Neuts (auto) 8.7 H Absolute Nucleated RBC 0.000 Nucleated RBC % 0.0 Sodium 133 L Potassium 4.7 Chloride 96 L Carbon Dioxide 29 Anion Gap 8 BUN 29 H Creatinine 0.71 Estim Creat Clear Calc 178 Estimated GFR > 60 Glucose 240 H POC Capillary Glucose 245 H Calcium 8.4 Magnesium 2.2 Total Bilirubin 0.7 AST 18 ALT 27 Alkaline Phosphatase 75 Total Protein 7.0 Albumin 3.3 L Quality VTE Prophylaxis VTE prophylaxis: pharmacologic ordered
--- NOTE | 2024-11-18 11:02 | PM.CNPUL ---
Assessment and Plan Assessment and plan (1) Obesity hypoventilation syndrome: Code(s): E66.2 - Morbid (severe) obesity with alveolar hypoventilation Status: Acute Assessment and Plan: This 54-year-old man, with chronic hypoxemic and hypercapnic respiratory failure and a similar hospitalization three months ago, is presenting again with acute on chronic hypercapnic respiratory failure. He has responded well to treatment with noninvasive ventilatory support and management for a possible COPD exacerbation, including antibiotics, bronchodilators, and IV steroids. Currently, he is improving and tolerating the AVAPS mode for ventilatory support at night, along with supplemental oxygen via high-flow nasal cannula during the day. On physical examination, he has scattered wheezes. Based on his history of mild obstructive sleep apnea and significant weight gain over the past 13 years, his chronic hypercapnic hypoxemic respiratory failure is most likely related to untreated obesity hypoventilation. Despite a long history of smoking, his chest CT shows only mild paraseptal emphysema, and given his age, it is highly likely that obesity hypoventilation is the primary cause of his hypercapnic respiratory failure rather than end-stage COPD. Plan: Reduce the dose of prednisone and continue with the current regimen of short-acting bronchodilators. Since the chest CT shows no evidence of new infiltrates suggestive of pneumonia, discontinue the antibiotic. The chest CT also reveals a chronic lobular infiltrate in the right lung, unchanged since last August's hospitalization, which will require further outpatient follow-up. To address the treatment of obesity hypoventilation, perform an ApneaLink study tonight. We will continue to follow the patient along with you. (2) COPD exacerbation: Code(s): J44.1 - Chronic obstructive pulmonary disease with (acute) exacerbation Status: Acute (3) Acute respiratory failure: Code(s): J96.00 - Acute respiratory failure, unspecified whether with hypoxia or hypercapnia Status: Acute (4) Acute hypercapnic respiratory failure: Code(s): J96.02 - Acute respiratory failure with hypercapnia Status: Acute (5) Acute on chronic respiratory failure with hypoxia and hypercapnia: Code(s): J96.21 - Acute and chronic respiratory failure with hypoxia; J96.22 - Acute and chronic respiratory failure with hypercapnia Status: Acute History of Present Illness History of Present Illness Consult date: 11/18/24 Chief complaint: COPD EXACERBATION, HYPERCAPNIA Narrative: This 54-year-old male patient, with a history of chronic hypoxemic and hypercapnic respiratory failure, presented with increasing shortness of breath. He was hospitalized in late August of last year for similar issues and diagnosed with hypoxemic hypercapnic respiratory failure, treated with noninvasive ventilatory support. The differential diagnosis included COPD versus obesity hypoventilation syndrome. Due to lack of insurance, he did not have access to home ventilatory support. Two days prior to this hospitalization, a friend provided him with a CPAP machine, which he used for approximately 2 days. Recently, he experienced worsening shortness of breath, generalized weakness, cough, and chest congestion. In the emergency room, he was found to have acute on chronic hypercapnic respiratory failure and was started on BiPAP support using the AVAPS mode. During his hospital stay, he was diagnosed with atrial fibrillation with rapid ventricular response and evaluated by cardiology services. A chest CT revealed few paraseptal emphysema changes, consistent with previous findings, and no significant change in a 2.5 x 1.7 cm nodule with lobular margins and central cavitation in the superior segment of the right lower lobe compared to last August's CT. There was also scattered bronchial mucus plugging in the bilateral lower lobes, consistent with bronchitis, and dependent consolidation favoring secondary atelectasis over pneumonia. His current treatment includes BiPAP support, antibiotics, IV steroids, short-acting bronchodilators, and anticoagulant therapy for AFib. The AVAPS settings are a tidal volume of 650 mL, EPAP of 10 cm H2O, a respiratory rate of 14, and supplemental oxygen at 40% FiO2. The patient reports improved breathing, mild cough, but no wheezing, chest pain, palpitations, hemoptysis, fever, or chills. He quit smoking last February after a history of smoking approximately 2.5 packs per day and is currently vaping TSH cannabinoids but not smoking marijuana. His last arterial blood gas showed a near-normal pH with a pCO2 around 65 mmHg. He tolerates the AVAPS mode well and uses a high-flow nasal cannula during the day. For COPD, he was using maintenance bronchodilators, though no previous pulmonary function tests are available. A 2012 sleep study, when he weighed 131 kg (BMI 31.5) versus his current weight of 170 kg (BMI 42.1), showed mild obstructive sleep apnea with an AHI of 10.2 and significant oxyhemoglobin desaturation to 82%. The recommendation was for weight loss and conservative management of sleep-disordered breathing. Review of Systems Review of Systems: Patient reports some weight loss of approximately 50 lb. Prior to coming to the hospital he was sleeping in a recliner. He has no history of acid reflux disease. He has no abdominal pain nausea vomiting diarrhea constipation. He has been diagnosed with RA years ago and has had some stiffness all over. He has not been evaluated by a shipfitter helper. He has got also history of lower extremity edema. He had multiple surgeries on his knees He is currently unemployed. His new insurance starts next week. [facility], [facility] Past Medical History Medical History Diabetes Chronic obstructive pulmonary disease Hyperlipidemia Hypertension Seasonal allergies Rheumatoid arthritis Sleep apnea Seizures Tobacco use Surgical History Surgical History History of right knee surgery Has had 5 surgeries total including ACL and meniscus repairs History of left knee surgery 1991-Dr. Erwin, meniscus repair, repair meniscus again by Dr. Mccloud Family History Family History Mother Malignant neoplasm Hypertension Diabetes mellitus Arthritis Father Diabetes mellitus Social History Social History Social History: Surrogate medical decision maker: Yenifer Tadeo, spouse. Code status: Full code. Smoking packs per day: 1.5 Smoking cigarettes per day: 30.0 Years smoked: 45 Smoking pack-years: 67.50 Smoking status: Current every day smoker Tobacco type: cigarettes Second hand tobacco smoke exposure: Yes Alcohol intake: former Alcohol use details: rare Substance use: current Substance use type: marijuana Last use: 09/12/24 Do You Feel Safe in your Home?: Yes Lack of Transportation: YES Lack of Food: Never True Current Housing: I Have Housing Concerned About Future Housing: No Difficulty Paying Gas/Electric Bills: No Difficulty Paying for Meds: YES Currently Unemployed: No Education: High School Diploma/GED Difficulty w/ Childcare or Family Care: No Living arrangements: with family Occupation/Education: occupation Spiritual care concerns: No Meds Home Medications and Allergies Home Medications ?Medication ?Instructions ?Recorded ?Confirmed ?Type albuterol sulfate 90 mcg/actuation 2 inh inhalation Q4H PRN shortness 09/20/24 11/13/24 Rx breath activated powder inhaler of breath or wheezing #1 ea atorvastatin 40 mg tablet 80 mg (2 x 40 mg) PO HS #30 tabs 09/20/24 11/13/24 Rx fluticasone 250 mcg-salmeterol 50 1 inh inhalation Q12H #60 ea 09/20/24 11/13/24 Rx mcg/dose blistr powdr for inhalation (Advair Diskus) ipratropium bromide 0.02 % 2.5 ml inhalation Q6H PRN 09/20/24 11/13/24 Rx solution for inhalation shortness of breath or wheezing #75 mL levofloxacin 750 mg tablet 750 mg PO DAILY #3 tabs 09/20/24 11/13/24 Rx lisinopril 30 mg tablet 30 mg PO DAILY #30 tabs 09/20/24 11/13/24 Rx nebulizer and compressor #1 ea 09/20/24 11/13/24 Rx nicotine 21 mg/24 hr daily 1 patch transdermal DAILY #30 ea 09/20/24 11/13/24 Rx transdermal patch (Nicoderm CQ) tiotropium bromide 18 mcg capsule 1 cap inhalation DAILY #30 09/20/24 11/13/24 Rx with inhalation device (Spiriva inhalations with HandiHaler) hydrocodone 5 mg-acetaminophen 325 1 tablet PO Q8H pain 11/14/24 11/14/24 History mg tablet pantoprazole 40 mg tablet,delayed 40 mg PO QAM 11/14/24 11/14/24 History release Allergies Allergy/AdvReac Type Severity Reaction Status Date / Time codeine AdvReac Unknown nightmares, Verified 11/13/24 15:24 extreme internal ear itching Vital Signs Vital Signs - 24 hr 11/17/24 11:46 11/17/24 12:00 11/17/24 12:00 Temperature 36.8 C Pulse Rate 118 H 157 H Respiratory Rate 24 H Blood Pressure 127/80 Pulse Oximetry 94 95 Oxygen Delivery High Flow Therapy with Na Oxygen Flow Rate 50 Fraction of Inspired Oxygen 70 11/17/24 13:15 11/17/24 13:15 11/17/24 13:25 Temperature Pulse Rate 112 H 112 H 107 H Respiratory Rate 20 20 20 Blood Pressure Pulse Oximetry 98 Oxygen Delivery High Flow Therapy with Na Oxygen Flow Rate 50 Fraction of Inspired Oxygen 70 11/17/24 14:00 11/17/24 14:00 11/17/24 15:57 Temperature Pulse Rate 158 H 146 H 95 Respiratory Rate Blood Pressure 109/67 121/65 Pulse Oximetry Oxygen Delivery Oxygen Flow Rate Fraction of Inspired Oxygen 11/17/24 15:57 11/17/24 15:57 11/17/24 16:00 Temperature 36.9 C Pulse Rate 95 95 Respiratory Rate 22 H Blood Pressure 121/65 121/65 Pulse Oximetry 93 97 Oxygen Delivery High Flow Therapy with Na Oxygen Flow Rate 50 Fraction of Inspired Oxygen 70 11/17/24 16:00 11/17/24 18:00 11/17/24 18:00 Temperature Pulse Rate 99 90 98 Respiratory Rate Blood Pressure 123/77 Pulse Oximetry 97 Oxygen Delivery Oxygen Flow Rate Fraction of Inspired Oxygen 11/17/24 20:00 11/17/24 20:00 11/17/24 20:00 Temperature 36.8 C Pulse Rate 123 H 107 H Respiratory Rate 24 H Blood Pressure 110/69 Pulse Oximetry 96 95 Oxygen Delivery High Flow Therapy with Na Oxygen Flow Rate 50 Fraction of Inspired Oxygen 70 11/17/24 21:47 11/17/24 21:47 11/17/24 22:00 Temperature 36.7 C Pulse Rate 113 H 113 H 65 Respiratory Rate 20 Blood Pressure 124/64 Pulse Oximetry 97 Oxygen Delivery Oxygen Flow Rate Fraction of Inspired Oxygen 11/17/24 22:00 11/17/24 22:00 11/17/24 22:13 Temperature Pulse Rate 111 H 65 96 Respiratory Rate 20 Blood Pressure 124/64 Pulse Oximetry Oxygen Delivery Oxygen Flow Rate Fraction of Inspired Oxygen 11/17/24 22:35 11/17/24 23:52 11/18/24 00:00 Temperature 36.4 C Pulse Rate 96 119 H 112 H Respiratory Rate 20 20 18 Blood Pressure 113/56 L Pulse Oximetry 93 93 Oxygen Delivery BiPAP Oxygen Flow Rate Fraction of Inspired Oxygen 11/18/24 00:00 11/18/24 00:00 11/18/24 00:00 Temperature Pulse Rate 112 H 101 H Respiratory Rate Blood Pressure 113/56 L Pulse Oximetry 95 Oxygen Delivery BiPAP Oxygen Flow Rate Fraction of Inspired Oxygen 40 11/18/24 02:00 11/18/24 02:00 11/18/24 03:18 Temperature 36.7 C Pulse Rate 123 H 109 H 123 H Respiratory Rate 24 H Blood Pressure 114/59 L 114/59 L Pulse Oximetry 93 Oxygen Delivery Oxygen Flow Rate Fraction of Inspired Oxygen 11/18/24 03:20 11/18/24 03:56 11/18/24 04:00 Temperature Pulse Rate 102 H 89 Respiratory Rate 22 H Blood Pressure Pulse Oximetry 93 95 Oxygen Delivery BiPAP BiPAP Oxygen Flow Rate Fraction of Inspired Oxygen 40 11/18/24 04:00 11/18/24 04:12 11/18/24 04:12 Temperature 36.8 C Pulse Rate 79 90 90 Respiratory Rate 22 H Blood Pressure 108/68 Pulse Oximetry 94 Oxygen Delivery Oxygen Flow Rate Fraction of Inspired Oxygen 11/18/24 05:51 11/18/24 06:00 11/18/24 06:00 Temperature Pulse Rate 106 H 90 90 Respiratory Rate 20 Blood Pressure 108/68 108/68 Pulse Oximetry 94 Oxygen Delivery Oxygen Flow Rate Fraction of Inspired Oxygen 11/18/24 07:55 11/18/24 08:00 11/18/24 08:00 Temperature 36.6 C Pulse Rate 112 H 116 H Respiratory Rate 20 Blood Pressure 132/68 Pulse Oximetry 90 91 Oxygen Delivery High Flow Therapy with Na Oxygen Flow Rate 50 Fraction of Inspired Oxygen 35 11/18/24 10:00 11/18/24 10:00 11/18/24 10:53 Temperature Pulse Rate 125 H 117 H 115 H Respiratory Rate Blood Pressure 114/72 Pulse Oximetry 92 Oxygen Delivery Oxygen Flow Rate Fraction of Inspired Oxygen 11/18/24 10:56 Temperature Pulse Rate 115 H Respiratory Rate Blood Pressure Pulse Oximetry Oxygen Delivery Oxygen Flow Rate Fraction of Inspired Oxygen Exam Narrative: GENERAL APPEARANCE: Well developed, well nourished, alert and cooperative, morbidly obese and appears to be in no acute distress while on supplemental oxygen SKIN: Inspection of the skin reveals no rashes, ulcerations or petechiae. HEENT: Sclerae anicteric and conjunctivae pink and moist. Extraocular movements were intact and pupils were equal, round, and reactive to light. The oral mucosa, hard and soft palate, tongue and posterior pharynx were normal. NECK: Supple. There was no thyroid enlargement, and no tenderness, or masses were felt. CHEST: Normal AP diameter and normal contour without any kyphoscoliosis. LUNGS: Few scattered wheezes otherwise clear lungs CARDIAC: There was a regular rate and rhythm without any murmurs, gallops, rubs. ABDOMEN: Soft and nontender with normal bowel sounds. There was no organomegaly. LYMPH NODES: No lymphadenopathy was appreciated in the neck.. EXTREMITIES: No cyanosis, clubbing; trace pedal edema NEUROLOGIC: Alert and oriented x 3. Normal affect. Results Laboratory Findings 11/18/24 05:25 11/18/24 05:25 ABG, PT/INR, D-dimer: ABG ABG pH 7.345 (7.350-7.450) L 11/14/24 11:30 ABG pCO2 64.8 mmHg (35.0-45.0) H* 11/14/24 11:30 ABG pO2 85.2 mmHg (80.0-100.0) 11/14/24 11:30 ABG O2 Saturation 95.6 % (95.0-100.0) 11/14/24 11:30 PT/INR, D-dimer PT 14.5 Seconds (11.1-14.7) 11/16/24 08:31 INR 1.1 11/16/24 08:31 Abnormal lab findings: Abnormal Labs 11/13/24 11/13/24 11/13/24 14:14 16:43 18:16 WBC MCHC 31.7 L RDW MPV Immature Gran % (Auto) Neut % (Auto) Lymph % (Auto) 18.0 L [place] % (Auto) Eos % (Auto) 10.4 H Baso % (Auto) Lymph # (Auto) [place] # (Auto) 0.7 H Eos # (Auto) 0.9 H Abs Immat Gran (auto) Absolute Neuts (auto) ABG pH 7.307 L 7.324 L ABG pCO2 69.6 H* 61.3 H* ABG pO2 65.4 L ABG HCO3 34.0 H 31.2 H ABG O2 Saturation 90.3 L 94.7 L VBG pCO2 VBG pO2 VBG HCO3 Reduced Hemoglobin 7.5 H Sodium Potassium Chloride 95 L Carbon Dioxide 38 H BUN Creatinine 0.64 L Glucose 143 H POC Capillary Glucose Hemoglobin A1c AST Total Protein Albumin 11/13/24 11/13/24 11/14/24 23:19 23:29 04:23 WBC MCHC 31.8 L RDW MPV Immature Gran % (Auto) Neut % (Auto) Lymph % (Auto) [place] % (Auto) Eos % (Auto) Baso % (Auto) Lymph # (Auto) [place] # (Auto) Eos # (Auto) Abs Immat Gran (auto) Absolute Neuts (auto) ABG pH ABG pCO2 ABG pO2 ABG HCO3 ABG O2 Saturation VBG pCO2 48.6 H VBG pO2 83.3 H VBG HCO3 Reduced Hemoglobin Sodium 134 L Potassium Chloride 93 L Carbon Dioxide 34 H BUN 22 H Creatinine Glucose 267 H POC Capillary Glucose 366 H Hemoglobin A1c AST Total Protein Albumin 11/14/24 11/14/24 11/14/24 05:46 11:30 19:50 WBC MCHC RDW MPV Immature Gran % (Auto) Neut % (Auto) Lymph % (Auto) [place] % (Auto) Eos % (Auto) Baso % (Auto) Lymph # (Auto) [place] # (Auto) Eos # (Auto) Abs Immat Gran (auto) Absolute Neuts (auto) ABG pH 7.345 L ABG pCO2 64.8 H* ABG pO2 ABG HCO3 34.6 H ABG O2 Saturation VBG pCO2 60.1 H VBG pO2 151.6 H VBG HCO3 32.5 H Reduced Hemoglobin Sodium Potassium Chloride Carbon Dioxide BUN Creatinine Glucose POC Capillary Glucose 415 H Hemoglobin A1c AST Total Protein Albumin 11/15/24 11/15/24 11/15/24 05:54 06:02 08:27 WBC 16.0 H MCHC RDW MPV 11.1 H Immature Gran % (Auto) Neut % (Auto) 90.8 H Lymph % (Auto) 4.1 L [place] % (Auto) Eos % (Auto) Baso % (Auto) 0.1 L Lymph # (Auto) 0.66 L [place] # (Auto) 0.7 H Eos # (Auto) Abs Immat Gran (auto) 0.08 H Absolute Neuts (auto) 14.6 H ABG pH ABG pCO2 ABG pO2 ABG HCO3 ABG O2 Saturation VBG pCO2 VBG pO2 VBG HCO3 Reduced Hemoglobin Sodium 134 L Potassium 5.5 H Chloride 94 L Carbon Dioxide 34 H BUN 27 H Creatinine 0.66 L Glucose 352 H POC Capillary Glucose 405 H Hemoglobin A1c 8.0 H AST Total Protein Albumin 11/15/24 11/15/24 11/15/24 11:16 15:18 19:59 WBC MCHC RDW MPV Immature Gran % (Auto) Neut % (Auto) Lymph % (Auto) [place] % (Auto) Eos % (Auto) Baso % (Auto) Lymph # (Auto) [place] # (Auto) Eos # (Auto) Abs Immat Gran (auto) Absolute Neuts (auto) ABG pH ABG pCO2 ABG pO2 ABG HCO3 ABG O2 Saturation VBG pCO2 VBG pO2 VBG HCO3 Reduced Hemoglobin Sodium Potassium Chloride Carbon Dioxide BUN Creatinine Glucose POC Capillary Glucose 372 H 480 H 419 H Hemoglobin A1c AST Total Protein Albumin 11/16/24 11/16/24 11/16/24 05:05 07:22 11:32 WBC 14.0 H MCHC 31.8 L RDW 14.7 H MPV Immature Gran % (Auto) 0.6 H Neut % (Auto) 87.1 H Lymph % (Auto) 5.9 L [place] % (Auto) Eos % (Auto) Baso % (Auto) 0.1 L Lymph # (Auto) 0.83 L [place] # (Auto) 0.9 H Eos # (Auto) Abs Immat Gran (auto) 0.09 H Absolute Neuts (auto) 12.2 H ABG pH ABG pCO2 ABG pO2 ABG HCO3 ABG O2 Saturation VBG pCO2 VBG pO2 VBG HCO3 Reduced Hemoglobin Sodium 131 L Potassium Chloride 96 L Carbon Dioxide BUN 28 H Creatinine 0.67 L Glucose 319 H POC Capillary Glucose 308 H 394 H Hemoglobin A1c AST Total Protein Albumin 11/16/24 11/16/24 11/17/24 15:33 20:12 04:28 WBC 11.6 H MCHC 31.8 L RDW 14.7 H MPV Immature Gran % (Auto) Neut % (Auto) 79.8 H Lymph % (Auto) 9.0 L [place] % (Auto) 10.4 H Eos % (Auto) Baso % (Auto) 0.1 L Lymph # (Auto) [place] # (Auto) 1.2 H Eos # (Auto) Abs Immat Gran (auto) 0.06 H Absolute Neuts (auto) 9.3 H ABG pH ABG pCO2 ABG pO2 ABG HCO3 ABG O2 Saturation VBG pCO2 VBG pO2 VBG HCO3 Reduced Hemoglobin Sodium 131 L Potassium Chloride 95 L Carbon Dioxide BUN 30 H Creatinine 0.68 L Glucose 303 H POC Capillary Glucose 411 H 318 H Hemoglobin A1c AST 16 L Total Protein 6.0 L Albumin 3.1 L 11/17/24 11/17/24 11/17/24 05:31 07:17 11:15 WBC MCHC RDW MPV Immature Gran % (Auto) Neut % (Auto) Lymph % (Auto) [place] % (Auto) Eos % (Auto) Baso % (Auto) Lymph # (Auto) [place] # (Auto) Eos # (Auto) Abs Immat Gran (auto) Absolute Neuts (auto) ABG pH ABG pCO2 ABG pO2 ABG HCO3 ABG O2 Saturation VBG pCO2 VBG pO2 VBG HCO3 Reduced Hemoglobin Sodium Potassium Chloride Carbon Dioxide BUN Creatinine Glucose POC Capillary Glucose 278 H 270 H 237 H Hemoglobin A1c AST Total Protein Albumin 11/17/24 11/17/24 11/18/24 16:08 21:13 05:25 WBC MCHC RDW MPV Immature Gran % (Auto) 1.1 H Neut % (Auto) 89.2 H Lymph % (Auto) 4.1 L [place] % (Auto) Eos % (Auto) Baso % (Auto) 0.1 L Lymph # (Auto) 0.40 L [place] # (Auto) Eos # (Auto) Abs Immat Gran (auto) 0.11 H Absolute Neuts (auto) 8.7 H ABG pH ABG pCO2 ABG pO2 ABG HCO3 ABG O2 Saturation VBG pCO2 VBG pO2 VBG HCO3 Reduced Hemoglobin Sodium 133 L Potassium Chloride 96 L Carbon Dioxide BUN 29 H Creatinine Glucose 240 H POC Capillary Glucose 374 H 279 H Hemoglobin A1c AST Total Protein Albumin 3.3 L 11/18/24 07:13 WBC MCHC RDW MPV Immature Gran % (Auto) Neut % (Auto) Lymph % (Auto) [place] % (Auto) Eos % (Auto) Baso % (Auto) Lymph # (Auto) [place] # (Auto) Eos # (Auto) Abs Immat Gran (auto) Absolute Neuts (auto) ABG pH ABG pCO2 ABG pO2 ABG HCO3 ABG O2 Saturation VBG pCO2 VBG pO2 VBG HCO3 Reduced Hemoglobin Sodium Potassium Chloride Carbon Dioxide BUN Creatinine Glucose POC Capillary Glucose 245 H Hemoglobin A1c AST Total Protein Albumin
[2024-11-18 11:19] LABS: Glucose Point of Care 265 mg/dl (65-105)
[2024-11-18] MEDS: METOPROLOL TARTRATE 25 MG TABLET PO ×2 (11:27→20:23)
--- NOTE | 2024-11-18 12:08 | P.PNIM_ITS ---
Progress Note: A&P Assessment and Plan (1) Acute respiratory failure with hypoxia and hypercapnia: Code(s): J96.01 - Acute respiratory failure with hypoxia; J96.02 - Acute respiratory failure with hypercapnia Status: Acute (2) COPD exacerbation: Code(s): J44.1 - Chronic obstructive pulmonary disease with (acute) exacerbation Status: Acute (3) Hypertension: Code(s): I10 - Essential (primary) hypertension Status: Acute (4) Hyperlipidemia: Code(s): E78.5 - Hyperlipidemia, unspecified Status: Acute (5) Obstructive sleep apnea: Code(s): G47.33 - Obstructive sleep apnea (adult) (pediatric) Status: Acute (6) Tobacco use: Code(s): Z72.0 - Tobacco use Status: Acute Plan The patient presented to the emergency department for evaluation of increasing cough and shortness of breath the last couple of days with some confusion this morning COPD exacerbation Patient has history of COPD, patient has worsening shortness breath and productive cough Continue scheduled DuoNeb, start albuterol nebulizer Q 4 p.r.n. albuterol has been switched to leave albuterol due to AFib with RVR on Solu-Medrol 60 mg q.6 hours scheduled. add Symbicort Continue Levaquin IV, and bronchodilators Decrease methylprednisolone to 40 mg q.8 hours IV no switched to prednisone Nasal MRSA is negative. Stop vancomycin. Continue on levofloxacin Sputum culture pending Acute on chronic respiratory failure Patient has history of chronic hypoxemia Now patient is on high-flow oxygen via nasal cannular Follow-up ABG showed hypercapnia, hypoxemic respiratory failure, pH 7.34, pCO2 64.8 PaO2 continue improved to 85.2 11/14 CTA reviewed Pulmonary consultation Uncontrolled type 2 diabetes Patient is not on medication at home A1c 8.0 Started on Lantus 24 unit daily, aspart 6 unit a.c., continue sliding scale Adjust insulin Smoking cessation is imperative and was discussed. Nicotine patch ordered per patient request. Blood pressures are stable. Continue home medication AFib with RVR new diagnosis. Remains on Cardizem drip. Cardiology consult. Echo on August 2024 with EF 55-60% no significant valvular disease. TSH normal. TSH in August 0.09. On oral Cardizem. Rheumatoid arthritis takes diclofenac not on any immunomodulators RF 16.9 follow-up as an outpatient basis DVT prophylaxis heparin drip now started on eliquis Code status full code Subjective Date/time seen: 11/18/24 12:08 Interval history: No overnight events. AFib with RVR persist. Worsens with activity. Breathing has improved. On on BiPAP at night. Airvo 50 L 35% this a.m. Review of Systems Review of Systems: All systems reviewed & are unremarkable except as noted in HPI and below Exam Narrative: GENERAL: Pleasant, in no acute distress. Well-nourished. On Airvo 50 L 35% - EYES: EOMI. Anicteric. - HENT: Moist mucous membranes. - LUNGS: Diminished breath sounds bilat erally no respiratory distress - CARDIOVASCULAR: Regular rate and rhyth m. No murmur. No JVD. - ABDOMEN: Soft, non-tender and non-dist ended. No palpable masses. - EXTREMITIES: No edema. Peripheral puls es 2+. Non-tender. - NEUROLOGIC: No focal neurological defi cits. CN II-XII grossly intact. General weakness - PSYCHIATRIC: Awake, Alert and oriented x 3. Appropriate mood and affect. - SKIN: No rashes or lesions. Warm. - LYMPH: No cervical lymphadenopathy. Objective Data Vital Signs Vital Signs: Vital Signs - 24 hr 11/17/24 13:15 11/17/24 13:15 11/17/24 13:25 Temperature Pulse Rate 112 H 112 H 107 H Respiratory Rate 20 20 20 Blood Pressure Pulse Oximetry 98 Oxygen Delivery High Flow Therapy with Na Oxygen Flow Rate 50 Fraction of Inspired Oxygen 70 11/17/24 14:00 11/17/24 14:00 11/17/24 15:57 Temperature Pulse Rate 158 H 146 H 95 Respiratory Rate Blood Pressure 109/67 121/65 Pulse Oximetry Oxygen Delivery Oxygen Flow Rate Fraction of Inspired Oxygen 11/17/24 15:57 11/17/24 15:57 11/17/24 16:00 Temperature 98.4 F Pulse Rate 95 95 Respiratory Rate 22 H Blood Pressure 121/65 121/65 Pulse Oximetry 93 97 Oxygen Delivery High Flow Therapy with Na Oxygen Flow Rate 50 Fraction of Inspired Oxygen 70 11/17/24 16:00 11/17/24 18:00 11/17/24 18:00 Temperature Pulse Rate 99 90 98 Respiratory Rate Blood Pressure 123/77 Pulse Oximetry 97 Oxygen Delivery Oxygen Flow Rate Fraction of Inspired Oxygen 11/17/24 20:00 11/17/24 20:00 11/17/24 20:00 Temperature 98.2 F Pulse Rate 123 H 107 H Respiratory Rate 24 H Blood Pressure 110/69 Pulse Oximetry 96 95 Oxygen Delivery High Flow Therapy with Na Oxygen Flow Rate 50 Fraction of Inspired Oxygen 70 11/17/24 21:47 11/17/24 21:47 11/17/24 22:00 Temperature 98.1 F Pulse Rate 113 H 113 H 65 Respiratory Rate 20 Blood Pressure 124/64 Pulse Oximetry 97 Oxygen Delivery Oxygen Flow Rate Fraction of Inspired Oxygen 11/17/24 22:00 11/17/24 22:00 11/17/24 22:13 Temperature Pulse Rate 111 H 65 96 Respiratory Rate 20 Blood Pressure 124/64 Pulse Oximetry Oxygen Delivery Oxygen Flow Rate Fraction of Inspired Oxygen 11/17/24 22:35 11/17/24 23:52 11/18/24 00:00 Temperature 97.6 F Pulse Rate 96 119 H 112 H Respiratory Rate 20 20 18 Blood Pressure 113/56 L Pulse Oximetry 93 93 Oxygen Delivery BiPAP Oxygen Flow Rate Fraction of Inspired Oxygen 11/18/24 00:00 11/18/24 00:00 11/18/24 00:00 Temperature Pulse Rate 112 H 101 H Respiratory Rate Blood Pressure 113/56 L Pulse Oximetry 95 Oxygen Delivery BiPAP Oxygen Flow Rate Fraction of Inspired Oxygen 40 11/18/24 02:00 11/18/24 02:00 11/18/24 03:18 Temperature 98.1 F Pulse Rate 123 H 109 H 123 H Respiratory Rate 24 H Blood Pressure 114/59 L 114/59 L Pulse Oximetry 93 Oxygen Delivery Oxygen Flow Rate Fraction of Inspired Oxygen 11/18/24 03:20 11/18/24 03:56 11/18/24 04:00 Temperature Pulse Rate 102 H 89 Respiratory Rate 22 H Blood Pressure Pulse Oximetry 93 95 Oxygen Delivery BiPAP BiPAP Oxygen Flow Rate Fraction of Inspired Oxygen 40 11/18/24 04:00 11/18/24 04:12 11/18/24 04:12 Temperature 98.2 F Pulse Rate 79 90 90 Respiratory Rate 22 H Blood Pressure 108/68 Pulse Oximetry 94 Oxygen Delivery Oxygen Flow Rate Fraction of Inspired Oxygen 11/18/24 05:51 11/18/24 06:00 11/18/24 06:00 Temperature Pulse Rate 106 H 90 90 Respiratory Rate 20 Blood Pressure 108/68 108/68 Pulse Oximetry 94 Oxygen Delivery Oxygen Flow Rate Fraction of Inspired Oxygen 11/18/24 07:55 11/18/24 08:00 11/18/24 08:00 Temperature 97.9 F Pulse Rate 112 H 116 H Respiratory Rate 20 Blood Pressure 132/68 Pulse Oximetry 90 91 Oxygen Delivery High Flow Therapy with Na Oxygen Flow Rate 50 Fraction of Inspired Oxygen 35 11/18/24 10:00 11/18/24 10:00 11/18/24 10:53 Temperature Pulse Rate 125 H 117 H 115 H Respiratory Rate Blood Pressure 114/72 Pulse Oximetry 92 Oxygen Delivery Oxygen Flow Rate Fraction of Inspired Oxygen 11/18/24 10:56 11/18/24 11:27 Temperature Pulse Rate 115 H 118 H Respiratory Rate Blood Pressure Pulse Oximetry Oxygen Delivery Oxygen Flow Rate Fraction of Inspired Oxygen Intake/Output Intake/Output: Intake & Output 11/15/24 11/16/24 11/17/24 11/18/24 23:59 23:59 23:59 23:59 Intake Total 1380 2315.6 4076.6 1524.0 Output Total 3550 1750 3125 1250 Balance -2170 565.6 951.6 274.0 Meds/Results Medications: Active Medications Generic Name Dose Route Start Last Admin Trade Name Freq PRN Reason Stop Dose Admin Acetaminophen 650 mg 11/13/24 16:47 11/17/24 15:11 Acetaminophen 325 Mg Tablet PO 650 mg Q4H PRN Administration Mild Pain (1-3) or Fever Hydrocodone Bitart/Acetaminophen 1 tab 11/14/24 20:51 11/18/24 09:02 Hydrocodone/Acetaminophen (*Crx) 5-325 Mg Tablet PO 1 tab Q8H PRN Administration Pain Acetylcysteine 200 mg 11/17/24 14:00 11/18/24 09:10 Acetylcysteine 20% Inhal Soln 800 Mg/4 Ml Vial INHALATION 200 mg Q6HRT SASHA Administration Albuterol 2.5 mg 11/14/24 10:29 Albuterol Sulfate Neb 2.5 Mg/3 Ml Inh INHALATION Q4HRT PRN Shortness Of Breath Apixaban 5 mg 11/16/24 21:00 11/18/24 08:59 Apixaban 5 Mg Tablet PO 5 mg Q12HR SASHA Administration Atorvastatin Calcium 80 mg 11/14/24 21:00 11/17/24 20:37 Atorvastatin 40 Mg Tablet PO 80 mg HS SSAHA Administration Dextrose 12.5 gm 11/14/24 20:53 Dextrose 50% 25 Gm/50 Ml Syringe IV PUSH PRN PRN Hypoglycemia Protocol Diltiazem HCl 60 mg 11/17/24 13:00 11/18/24 09:00 Diltiazem Hcl 60 Mg Tablet PO 60 mg TID SASHA Administration Glucagon 1 mg 11/14/24 20:53 Glucagon For Inj 1 Mg Vial IM PRN PRN Hypoglycemia Protocol Glucose 15 gm 11/14/24 20:53 Glucose Oral Gel 15 Gm Of Glucse In 37.5 Gm Tube PO PRN PRN Hypoglycemia Protocol Guaifenesin 1,200 mg 11/16/24 21:00 11/18/24 08:59 Guaifenesin 12 Hr 600 Mg Tabcr PO 1,200 mg Q12HR SASHA Administration Dextrose 1,000 mls @ 100 mls/hr 11/14/24 20:53 Dextrose 5% 1,000 Ml IVPB PRN PRN Hypoglycemia Protocol Diltiazem HCl 100 mg in 100 mls @ 15 mls/hr 11/16/24 08:10 11/18/24 10:56 Cardizem 100 Mg/100 Ml IV CONT 15 mg/hr .Q6H40M SASHA 15 mls/hr Administration 15 MG/HR Levofloxacin/Dextrose 750 mg in 150 mls @ 100 mls/hr 11/16/24 20:00 11/17/24 20:32 Levaquin 750 Mg/D5w 150 Ml IVPB 100 mls/hr Q24H SASHA Administration Insulin Aspart 4 - 8 units 11/15/24 08:00 11/18/24 11:27 Insulin Aspart (*Bkc) 100 Units/Ml SUB-Q 5 units TIDWM SASHA Administration Protocol Insulin Aspart 10 units 11/16/24 17:00 11/18/24 11:28 Insulin Aspart (*Bkc) 100 Units/Ml SUB-Q 10 units TIDWM SASHA Administration Insulin Glargine 18 units 11/16/24 16:45 11/18/24 06:15 Insulin Glargine (*Bkc) 100 Units/Ml SUB-Q 18 units Q12H SASHA Administration Ipratropium [place] 0.5 mg 11/16/24 02:00 11/18/24 09:11 Ipratropium Br 0.02% Inh Soln 0.5 Mg/2.5 Ml Vial INHALATION 0.5 mg Q6HRT SASHA Administration Levalbuterol HCl 1.25 mg 11/16/24 02:00 11/18/24 09:11 Levalbuterol Neb 1.25 Mg/3 Ml INHALATION 1.25 mg Q6HRT SASHA Administration Lisinopril 30 mg 11/15/24 09:00 11/18/24 08:59 Lisinopril 10 Mg Tablet PO 30 mg DAILY SASHA Administration Nicotine 1 patch 11/15/24 14:45 11/18/24 09:00 Nicotine (*Pbkc) 21 Mg Patch TRANSDERM 1 patch DAILY [facility] Administration Ondansetron HCl 4 mg 11/13/24 16:47 Ondansetron Inj 4 Mg/2 Ml Vial IV PUSH Q4H PRN Nausea Pantoprazole Sodium 40 mg 11/15/24 09:00 11/18/24 08:59 Pantoprazole 40 Mg Tablet PO 40 mg QAM SASHA Administration Prednisone 40 mg 11/19/24 08:00 Prednisone 20 Mg Tablet PO DAILY@0800 [facility] Fluticasone/Salmeterol 2 puff 11/14/24 20:00 11/18/24 09:10 Fluticasone/Salmeterol 115-21 Mcg Inhaler 1 Puff INHALATION 2 puff Q12HRT SASHA Administration Umeclidinium [place] 1 puff 11/15/24 08:00 11/18/24 09:11 Umeclidinium [place] 62.5 Mcg Ellipta INHALATION 1 puff DAILYRT SASHA Administration Radiology Results: ITS Impressions Chest CTA 11/16/24 11:31 IMPRESSION: 1. No pulmonary embolism. 2. No significant change in a 2.5 x 1.7 cm nodule with lobular margins and some central cavitation in the superior segment of the right lower lobe which could be infectious, inflammatory or malignant in etiology. Recommend routine CT- guided biopsy. 3. Mild emphysema. 4. Scattered bronchial mucous plugging in the bilateral lower lobes consistent with bronchitis with dependent consolidation in the dependent aspect of the lower lobes and favor secondary atelectasis over pneumonia. 5. 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 Chest X-Ray 11/18/24 06:51 Impression: Discoid left basilar atelectasis, less likely pneumonia. Right lung clear. Labs Labs: Laboratory Results - last 24 hr 11/17/24 11/17/24 11/18/24 16:08 21:13 05:25 WBC 9.8 RBC 4.92 Hgb 14.8 Hct 45.8 MCV 93.1 MCH 30.1 MCHC 32.3 RDW 14.4 Plt Count 197 MPV 10.3 Immature Gran % (Auto) 1.1 H Neut % (Auto) 89.2 H Lymph % (Auto) 4.1 L [place] % (Auto) 5.5 Eos % (Auto) 0.0 Baso % (Auto) 0.1 L Lymph # (Auto) 0.40 L [place] # (Auto) 0.5 Eos # (Auto) 0.0 Baso # (Auto) 0.0 Abs Immat Gran (auto) 0.11 H Absolute Neuts (auto) 8.7 H Absolute Nucleated RBC 0.000 Nucleated RBC % 0.0 Sodium 133 L Potassium 4.7 Chloride 96 L Carbon Dioxide 29 Anion Gap 8 BUN 29 H Creatinine 0.71 Estim Creat Clear Calc 178 Estimated GFR > 60 Glucose 240 H POC Capillary Glucose 374 H 279 H Calcium 8.4 Magnesium 2.2 Total Bilirubin 0.7 AST 18 ALT 27 Alkaline Phosphatase 75 Total Protein 7.0 Albumin 3.3 L 11/18/24 11/18/24 07:13 11:12 WBC RBC Hgb Hct MCV MCH MCHC RDW Plt Count MPV Immature Gran % (Auto) Neut % (Auto) Lymph % (Auto) [place] % (Auto) Eos % (Auto) Baso % (Auto) Lymph # (Auto) [place] # (Auto) Eos # (Auto) Baso # (Auto) Abs Immat Gran (auto) Absolute Neuts (auto) Absolute Nucleated RBC Nucleated RBC % Sodium Potassium Chloride Carbon Dioxide Anion Gap BUN Creatinine Estim Creat Clear Calc Estimated GFR Glucose POC Capillary Glucose 245 H 265 H Calcium Magnesium Total Bilirubin AST ALT Alkaline Phosphatase Total Protein Albumin
[2024-11-18 16:17] LABS: Glucose Point of Care 209 mg/dl (65-105)
[2024-11-18] MEDS: ATORVASTATIN 40 MG TABLET 80 MG PO (20:23)
[2024-11-18] MEDS: levoFLOXacin 750 MG/D5W 150 ML 750 MG/150 ML BAG 100 MG IVPB (20:23)
[2024-11-18 21:13] LABS: Glucose Point of Care 235 mg/dl (65-105)
[2024-11-19] VITALS (32 sets, daily range): BP systolic 101–126; BP diastolic 47–71; PULSE 79–104; RESP 16–24; TEMP 36.3–37; O2SAT 92–100
[2024-11-19] MEDS: LEVALBUTEROL NEB 1.25 MG/3 ML INHALATION ×4 (01:00→20:35)
[2024-11-19] MEDS: ACETYLCYSTEINE 20% INHAL SOLN 800 MG/4 ML VIAL 200 MG INHALATION ×3 (01:00→20:36)
--- NOTE | 2024-11-19 02:45 | PCRCNOTE ---
Per RN patient to receive med q2 and unable to perform apnea link procedure
[2024-11-19 05:08] LABS: Basophils Percent Auto 0.2 % (0.2-1.2); Hematocrit 44.5 % (42.0-52.0); Hemoglobin 14.4 g/dL (14.0-18.0); Immature Granulocyte Absolute 0.14 K/mm3 (0.00-0.031); Immature Granulocyte Percent A 1.3 % (0-0.5); Lymphocytes Absolute Auto 0.92 K/mm3 (0.9-3.2); Lymphocytes Percent Auto 8.2 % (18.3-44.2); Mean Corpuscular HGB Conc 32.4 g/dl (32-36); Mean Corpuscular Hemoglobin 30.1 pg (26-34); Mean Corpuscular Volume 93.1 fl (80-100); Mean Platelet Volume 10.3 fl (7.4-10.4); Monocytes Absolute Auto 1.1 K/mm3 (0.1-0.6); Neutrophils Percent Auto 80.3 % (45.5-73.1); Platelet Count Result 203 k/mm3 (150-375); Red Blood Count 4.78 M/mm3 (4.6-6.20); Red Cell Distribution Width 14.6 % (11.5-14.5); White Blood Count 11.2 K/mm3 (4.5-10.0)
[2024-11-19 05:29] LABS: Potassium 4.5 mmol/L (3.4-5.0)
[2024-11-19 05:35] LABS: Alanine Aminotransferase 28 U/L (6-50); Alkaline Phosphatase 68 U/L (38-126); Anion Gap 8 mmol/L (4-12); Aspartate Amino Transferase 20 U/L (17-59); Bilirubin,Total 0.6 mg/dL (0.2-1.3); Blood Urea Nitrogen 34 mg/dL (9-20); Calcium 8.2 mg/dL (8.4-10.2); Carbon Dioxide 27 mmol/L (22-30); Chloride 97 mmol/L (98-107); Estimated CRCL calculation 152 ml/min; Estimated Glomerular Filt Rate > 60; Glucose 189 mg/dL (65-110); Magnesium 2.2 mg/dL (1.6-2.3); Sodium 132 mmol/L (137-145)
[2024-11-19] MEDS: INSULIN GLARGINE (*BKC) 100 UNITS/ML 18 UNITS SUB-Q ×2 (05:56→17:40)
[2024-11-19] MEDS: dilTIAZem 100 MG/100 ML 100 MG/100 ML BAG 15 MG IV CONT ×3 (06:35→20:25)
[2024-11-19 07:26] LABS: Glucose Point of Care 232 mg/dl (65-105)
[2024-11-19] MEDS: lisinopriL 10 MG TABLET 30 MG PO (10:00)
[2024-11-19] MEDS: PANTOPRAZOLE 40 MG TABLET PO (10:00)
[2024-11-19] MEDS: METOPROLOL TARTRATE 25 MG TABLET PO ×2 (10:00→20:28)
[2024-11-19] MEDS: dilTIAZem HCL 60 MG TABLET PO ×4 (10:00→23:19)
[2024-11-19] MEDS: predniSONE 20 MG TABLET 40 MG PO (10:00)
[2024-11-19] MEDS: guaiFENesin 12 HR 600 MG TABCR 1200 MG PO ×2 (10:00→20:27)
[2024-11-19] MEDS: INSULIN ASPART (*BKC) 100 UNITS/ML SUB-Q ×2 (10:01→17:38)
[2024-11-19] MEDS: NICOTINE (*PBKC) 21 MG PATCH 1 PATCH TRANSDERM (10:01)
[2024-11-19] MEDS: INSULIN ASPART (*BKC) 100 UNITS/ML 10 UNITS SUB-Q ×3 (10:01→17:40)
[2024-11-19] MEDS: APIXABAN 5 MG TABLET PO ×2 (10:01→20:28)
[2024-11-19] MEDS: IPRATROPIUM BR 0.02% INH SOLN 0.5 MG/2.5 ML VIAL INHALATION ×3 (10:12→20:35)
[2024-11-19] MEDS: UMECLIDINIUM BROMIDE 62.5 MCG ELLIPTA 1 PUFF INHALATION (10:12)
--- NOTE | 2024-11-19 10:13 | P.PNPL_ITS ---
Progress Note: A&P Assessment and Plan (1) Obesity hypoventilation syndrome: Code(s): E66.2 - Morbid (severe) obesity with alveolar hypoventilation Status: Acute Assessment and Plan: This 54-year-old man, with chronic hypoxemic and hypercapnic respiratory failure and a similar hospitalization three months ago, is presenting again with acute on chronic hypercapnic respiratory failure. He has responded well to treatment with noninvasive ventilatory support and management for a possible COPD exacerbation, including antibiotics, bronchodilators, and IV steroids. Currently, he is improving and tolerating the AVAPS mode for ventilatory support at night, along with supplemental oxygen via high-flow nasal cannula during the day. On physical examination, he has clear lungs. Based on his history of mild obstructive sleep apnea and significant weight gain over the past 13 years, his chronic hypercapnic hypoxemic respiratory failure is most likely related to untreated obesity hypoventilation. Despite a long history of smoking, his chest CT shows only mild paraseptal emphysema, and given his age, it is highly likely that obesity hypoventilation is the primary cause of his hypercapnic respiratory failure rather than end-stage COPD. No pulmonary function testing is available for review. Plan: Continue with current regimen for now. Anticipate discontinuing steroids over the next few days. Out of bed to chair. The patient will benefit from home ventilatory support for obesity hypoventilation syndrome (OHS), having experienced two hospitalizations for acute on chronic hypercapnic respiratory failure over the past three months. While the patient has responded well to the BiPAP machine during these hospitalizations, transitioning to a home ventilator offers more advanced and customizable ventilatory support. Home ventilators can deliver precise tidal volumes and adjust more effectively to the patient's specific needs, optimizing ventilation and improving gas exchange, which is crucial in managing OHS. Importantly, the use of home ventilators can reduce the frequency of hospital admissions and enhance overall health outcomes for patients with severe respiratory failure due to OHS. (2) Obstructive sleep apnea: Code(s): G47.33 - Obstructive sleep apnea (adult) (pediatric) Status: Acute (3) Hypercapnia: Code(s): R06.89 - Other abnormalities of breathing Status: Acute (4) Acute on chronic respiratory failure with hypoxia and hypercapnia: Code(s): J96.21 - Acute and chronic respiratory failure with hypoxia; J96.22 - Acute and chronic respiratory failure with hypercapnia Status: Acute (5) Acute respiratory failure: Code(s): J96.00 - Acute respiratory failure, unspecified whether with hypoxia or hypercapnia Status: Acute (6) Atrial fibrillation with RVR: Code(s): I48.91 - Unspecified atrial fibrillation Status: Acute Subjective Date/time seen: 11/19/24 10:13 Interval history: Patient stated his breathing improving slowly. No wheezing cough productive of clear phlegm no fever chills. No shortness of breath while in breath and on supplemental oxygen via high-flow nasal cannula. Slept well last night on BiPAP support. Review of Systems Review of Systems: All systems reviewed & are unremarkable except as noted in HPI and below (HPI and below) Exam Narrative: GENERAL APPEARANCE: Well developed, well nourished, alert and cooperative, morbidly obese and appears to be in no acute distress while on supplemental oxygen SKIN: Inspection of the skin reveals no rashes, ulcerations or petechiae. HEENT: Sclerae anicteric and conjunctivae pink and moist. Extraocular movements were intact and pupils were equal, round, and reactive to light. The oral mucosa, hard and soft palate, tongue and posterior pharynx were normal. NECK: Supple. There was no thyroid enlargement, and no tenderness, or masses were felt. CHEST: Normal AP diameter and normal contour without any kyphoscoliosis. LUNGS: Few scattered wheezes otherwise clear lungs CARDIAC: There was a regular rate and rhythm without any murmurs, gallops, rubs. ABDOMEN: Soft and nontender with normal bowel sounds. There was no organomegaly. LYMPH NODES: No lymphadenopathy was appreciated in the neck.. EXTREMITIES: No cyanosis, clubbing; trace pedal edema NEUROLOGIC: Alert and oriented x 3. Normal affect. Objective Data Vital Signs Vital Signs: Vital Signs - 24 hr 11/18/24 10:53 11/18/24 10:56 11/18/24 11:27 Temperature Pulse Rate 115 H 115 H 118 H Respiratory Rate Blood Pressure Pulse Oximetry Oxygen Delivery Oxygen Flow Rate Fraction of Inspired Oxygen 11/18/24 11:44 11/18/24 12:00 11/18/24 12:00 Temperature 37.1 C Pulse Rate 144 H 115 H Respiratory Rate 18 Blood Pressure 137/67 Pulse Oximetry 97 90 Oxygen Delivery High Flow Therapy with Na Oxygen Flow Rate 50 Fraction of Inspired Oxygen 35 11/18/24 12:00 11/18/24 13:58 11/18/24 14:00 Temperature Pulse Rate 144 H 85 78 Respiratory Rate Blood Pressure 137/67 107/51 L Pulse Oximetry 93 Oxygen Delivery Oxygen Flow Rate Fraction of Inspired Oxygen 11/18/24 14:07 11/18/24 14:41 11/18/24 14:42 Temperature Pulse Rate 85 86 86 Respiratory Rate 20 20 Blood Pressure 107/51 L Pulse Oximetry 93 Oxygen Delivery High Flow Therapy with Na Oxygen Flow Rate 50 Fraction of Inspired Oxygen 45 11/18/24 15:35 11/18/24 16:00 11/18/24 16:00 Temperature 36.9 C Pulse Rate 98 103 H Respiratory Rate 20 Blood Pressure 115/63 Pulse Oximetry 91 94 Oxygen Delivery High Flow Therapy with Na Oxygen Flow Rate 50 Fraction of Inspired Oxygen 35 11/18/24 16:00 11/18/24 17:02 11/18/24 17:02 Temperature Pulse Rate 98 98 98 Respiratory Rate Blood Pressure 115/63 Pulse Oximetry Oxygen Delivery Oxygen Flow Rate Fraction of Inspired Oxygen 11/18/24 18:00 11/18/24 18:00 11/18/24 18:00 Temperature Pulse Rate 87 101 H 87 Respiratory Rate Blood Pressure 143/71 H 143/71 H Pulse Oximetry 94 Oxygen Delivery Oxygen Flow Rate Fraction of Inspired Oxygen 11/18/24 19:26 11/18/24 20:00 11/18/24 20:00 Temperature 36.3 C L Pulse Rate 80 80 Respiratory Rate 20 Blood Pressure 127/57 L Pulse Oximetry 92 93 Oxygen Delivery High Flow Therapy with Na Oxygen Flow Rate 50 Fraction of Inspired Oxygen 35 11/18/24 20:00 11/18/24 20:23 11/18/24 20:51 Temperature Pulse Rate 80 91 81 Respiratory Rate 20 Blood Pressure 127/57 L Pulse Oximetry Oxygen Delivery Oxygen Flow Rate Fraction of Inspired Oxygen 11/18/24 21:16 11/18/24 22:00 11/18/24 22:00 Temperature 36.8 C Pulse Rate 81 82 82 Respiratory Rate 20 18 Blood Pressure 127/70 127/70 Pulse Oximetry 92 Oxygen Delivery Oxygen Flow Rate Fraction of Inspired Oxygen 11/18/24 22:16 11/18/24 23:42 11/18/24 23:50 Temperature Pulse Rate 88 81 81 Respiratory Rate Blood Pressure 115/71 Pulse Oximetry Oxygen Delivery Oxygen Flow Rate Fraction of Inspired Oxygen 11/18/24 23:55 11/19/24 00:00 11/19/24 00:00 Temperature 36.6 C Pulse Rate 79 79 Respiratory Rate 20 Blood Pressure 115/71 Pulse Oximetry 92 92 Oxygen Delivery High Flow Therapy with Na Oxygen Flow Rate 50 Fraction of Inspired Oxygen 35 11/19/24 01:00 11/19/24 01:00 11/19/24 01:32 Temperature Pulse Rate 81 103 H 81 Respiratory Rate 20 22 H 20 Blood Pressure Pulse Oximetry 93 Oxygen Delivery BiPAP Oxygen Flow Rate Fraction of Inspired Oxygen 11/19/24 02:00 11/19/24 02:00 11/19/24 02:30 Temperature Pulse Rate 82 82 80 Respiratory Rate 18 Blood Pressure 116/65 116/65 Pulse Oximetry 95 Oxygen Delivery Oxygen Flow Rate Fraction of Inspired Oxygen 11/19/24 03:53 11/19/24 04:00 11/19/24 04:00 Temperature 36.8 C Pulse Rate 79 87 Respiratory Rate 16 Blood Pressure 101/60 Pulse Oximetry 94 95 Oxygen Delivery High Flow Therapy with Na Oxygen Flow Rate 50 Fraction of Inspired Oxygen 35 11/19/24 04:08 11/19/24 06:00 11/19/24 06:30 Temperature 36.6 C Pulse Rate 103 H 81 81 Respiratory Rate 22 H 24 H Blood Pressure 110/62 Pulse Oximetry 93 96 Oxygen Delivery BiPAP Oxygen Flow Rate Fraction of Inspired Oxygen 11/19/24 06:35 11/19/24 06:35 11/19/24 06:43 Temperature Pulse Rate 81 81 104 H Respiratory Rate Blood Pressure 110/62 Pulse Oximetry Oxygen Delivery Oxygen Flow Rate Fraction of Inspired Oxygen 11/19/24 07:42 11/19/24 10:00 Temperature 37.0 C Pulse Rate 83 104 H Respiratory Rate 16 Blood Pressure 126/64 Pulse Oximetry 94 Oxygen Delivery Oxygen Flow Rate Fraction of Inspired Oxygen Intake/Output Intake/Output: Intake & Output 11/16/24 11/17/24 11/18/24 11/19/24 23:59 23:59 23:59 23:59 Intake Total 2315.6 4226.6 3373.5 1010.0 Output Total 1750 3125 2050 2100 Balance 565.6 1101.6 1323.5 -1090.0 Meds/Results Medications: Active Medications Generic Name Dose Route Start Last Admin Trade Name Freq PRN Reason Stop Dose Admin Acetaminophen 650 mg 11/13/24 16:47 11/17/24 15:11 Acetaminophen 325 Mg Tablet PO 650 mg Q4H PRN Administration Mild Pain (1-3) or Fever Hydrocodone Bitart/Acetaminophen 1 tab 11/14/24 20:51 11/18/24 22:12 Hydrocodone/Acetaminophen (*Crx) 5-325 Mg Tablet PO 1 tab Q8H PRN Administration Pain Acetylcysteine 200 mg 11/17/24 14:00 11/19/24 01:00 Acetylcysteine 20% Inhal Soln 800 Mg/4 Ml Vial INHALATION 200 mg Q6HRT SASHA Administration Albuterol 2.5 mg 11/14/24 10:29 Albuterol Sulfate Neb 2.5 Mg/3 Ml Inh INHALATION Q4HRT PRN Shortness Of Breath Apixaban 5 mg 11/16/24 21:00 11/19/24 10:01 Apixaban 5 Mg Tablet PO 5 mg Q12HR SASHA Administration Atorvastatin Calcium 80 mg 11/14/24 21:00 11/18/24 20:23 Atorvastatin 40 Mg Tablet PO 80 mg HS SASHA Administration Dextrose 12.5 gm 11/14/24 20:53 Dextrose 50% 25 Gm/50 Ml Syringe IV PUSH PRN PRN Hypoglycemia Protocol Diltiazem HCl 60 mg 11/17/24 13:00 11/19/24 10:00 Diltiazem Hcl 60 Mg Tablet PO 60 mg TID SASHA Administration Glucagon 1 mg 11/14/24 20:53 Glucagon For Inj 1 Mg Vial IM PRN PRN Hypoglycemia Protocol Glucose 15 gm 11/14/24 20:53 Glucose Oral Gel 15 Gm Of Glucse In 37.5 Gm Tube PO PRN PRN Hypoglycemia Protocol Guaifenesin 1,200 mg 11/16/24 21:00 11/19/24 10:00 Guaifenesin 12 Hr 600 Mg Tabcr PO 1,200 mg Q12HR SASHA Administration Dextrose 1,000 mls @ 100 mls/hr 11/14/24 20:53 Dextrose 5% 1,000 Ml IVPB PRN PRN Hypoglycemia Protocol Diltiazem HCl 100 mg in 100 mls @ 15 mls/hr 11/16/24 08:10 11/19/24 06:35 Cardizem 100 Mg/100 Ml IV CONT 15 mg/hr .Q6H40M SASHA 15 mls/hr Infusion 15 MG/HR Insulin Aspart 4 - 8 units 11/15/24 08:00 11/19/24 10:01 Insulin Aspart (*Bkc) 100 Units/Ml SUB-Q 4 units TIDWM SASHA Administration Protocol Insulin Aspart 10 units 11/16/24 17:00 11/19/24 10:01 Insulin Aspart (*Bkc) 100 Units/Ml SUB-Q 10 units TIDWM SASHA Administration Insulin Glargine 18 units 11/16/24 16:45 11/19/24 05:56 Insulin Glargine (*Bkc) 100 Units/Ml SUB-Q 18 units Q12H SASHA Administration Ipratropium [place] 0.5 mg 11/16/24 02:00 11/18/24 20:51 Ipratropium Br 0.02% Inh Soln 0.5 Mg/2.5 Ml Vial INHALATION 0.5 mg Q6HRT SASHA Administration Levalbuterol HCl 1.25 mg 11/16/24 02:00 11/19/24 01:00 Levalbuterol Neb 1.25 Mg/3 Ml INHALATION 1.25 mg Q6HRT SASHA Administration Levofloxacin 750 mg 11/19/24 21:00 Levofloxacin 750 Mg Tablet PO 11/21/24 21:01 QHS [facility]–1983 Lisinopril 30 mg 11/15/24 09:00 11/19/24 10:00 Lisinopril 10 Mg Tablet PO 30 mg DAILY SASHA Administration Metoprolol Tartrate 25 mg 11/18/24 21:00 11/19/24 10:00 Metoprolol Tartrate 25 Mg Tablet PO 25 mg Q12HR [facility]1983 Administration Nicotine 1 patch 11/15/24 14:45 11/19/24 10:01 Nicotine (*Pbkc) 21 Mg Patch TRANSDERM 1 patch DAILY [facility]1983 Administration Ondansetron HCl 4 mg 11/13/24 16:47 Ondansetron Inj 4 Mg/2 Ml Vial IV PUSH Q4H PRN Nausea Pantoprazole Sodium 40 mg 11/15/24 09:00 11/19/24 10:00 Pantoprazole 40 Mg Tablet PO 40 mg QAM [facility]1983 Administration Prednisone 40 mg 11/19/24 08:00 11/19/24 10:00 Prednisone 20 Mg Tablet PO 40 mg DAILY@0800 [facility] Administration Fluticasone/Salmeterol 2 puff 11/14/24 20:00 11/18/24 20:51 Fluticasone/Salmeterol 115-21 Mcg Inhaler 1 Puff INHALATION 2 puff Q12HRT SASHA Administration Umeclidinium [place] 1 puff 11/15/24 08:00 11/18/24 09:11 Umeclidinium [place] 62.5 Mcg Ellipta INHALATION 1 puff DAILYRT SASHA Administration Radiology Results: ITS Impressions Chest CTA 11/16/24 11:31 IMPRESSION: 1. No pulmonary embolism. 2. No significant change in a 2.5 x 1.7 cm nodule with lobular margins and some central cavitation in the superior segment of the right lower lobe which could be infectious, inflammatory or malignant in etiology. Recommend routine CT- guided biopsy. 3. Mild emphysema. 4. Scattered bronchial mucous plugging in the bilateral lower lobes consistent with bronchitis with dependent consolidation in the dependent aspect of the lower lobes and favor secondary atelectasis over pneumonia. 5. 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 Chest X-Ray 11/18/24 06:51 Impression: Discoid left basilar atelectasis, less likely pneumonia. Right lung clear. Labs Labs: Laboratory Results - last 24 hr 11/18/24 11/18/24 11/18/24 11:12 16:14 20:23 WBC RBC Hgb Hct MCV MCH MCHC RDW Plt Count MPV Immature Gran % (Auto) Neut % (Auto) Lymph % (Auto) [place] % (Auto) Eos % (Auto) Baso % (Auto) Lymph # (Auto) [place] # (Auto) Eos # (Auto) Baso # (Auto) Abs Immat Gran (auto) Absolute Neuts (auto) Absolute Nucleated RBC Nucleated RBC % Sodium Potassium Chloride Carbon Dioxide Anion Gap BUN Creatinine Estim Creat Clear Calc Estimated GFR Glucose POC Capillary Glucose 265 H 209 H 235 H Calcium Magnesium Total Bilirubin AST ALT Alkaline Phosphatase Total Protein Albumin 11/19/24 11/19/24 04:53 07:21 WBC 11.2 H RBC 4.78 Hgb 14.4 Hct 44.5 MCV 93.1 MCH 30.1 MCHC 32.4 RDW 14.6 H Plt Count 203 MPV 10.3 Immature Gran % (Auto) 1.3 H Neut % (Auto) 80.3 H Lymph % (Auto) 8.2 L [place] % (Auto) 10.0 H Eos % (Auto) 0.0 Baso % (Auto) 0.2 Lymph # (Auto) 0.92 [place] # (Auto) 1.1 H Eos # (Auto) 0.0 Baso # (Auto) 0.0 Abs Immat Gran (auto) 0.14 H Absolute Neuts (auto) 9.0 H Absolute Nucleated RBC 0.000 Nucleated RBC % 0.0 Sodium 132 L Potassium 4.5 Chloride 97 L Carbon Dioxide 27 Anion Gap 8 BUN 34 H Creatinine 0.84 Estim Creat Clear Calc 152 Estimated GFR > 60 Glucose 189 H POC Capillary Glucose 232 H Calcium 8.2 L Magnesium 2.2 Total Bilirubin 0.6 AST 20 ALT 28 Alkaline Phosphatase 68 Total Protein 6.0 L Albumin 3.0 L
[2024-11-19 12:52] LABS: Glucose Point of Care 174 mg/dl (65-105)
--- NOTE | 2024-11-19 13:02 | P.PNCA_ITS ---
Progress Note: A&P Assessment and Plan (1) Atrial fibrillation with RVR: Code(s): I48.91 - Unspecified atrial fibrillation Status: Acute Assessment and Plan: 54-year-old male with hypertension, diabetes mellitus, COPD, chronic respiratory failure on home oxygen, KAL on CPAP, dyslipidemia, morbid obesity, history of heavy tobacco abuse. Patient admitted to the hospital with acute on chronic hypoxemic and hypercarbic respiratory failure. He went into AFib with RVR during hospitalization (paroxysmal versus persistent). Recent LV systolic function on echo reported to be preserved. -continue IV diltiazem for rate control, decrease to 5mg/hr today, being bridged with oral diltiazem 60mg q6h. May discharge home on long-acting diltiazem. -Continue metoprolol 25mg b.i.d. -continue anticoagulation with apixaban 5 mg p.o. b.i.d.. -continue to monitor on telemetry. May consider SARINA guided DC cardioversion if heart rate is difficult to control; emergent DC cardioversion for hemodynamically unstable AFib with RVR -plan discussed with the patient and he is in agreement. He will follow-up with Dr. Lei after hospital discharge. Follow up information provided to the patient. (2) Acute on chronic respiratory failure with hypoxia and hypercapnia: Code(s): J96.21 - Acute and chronic respiratory failure with hypoxia; J96.22 - Acute and chronic respiratory failure with hypercapnia Status: Acute Assessment and Plan: Supplemental oxygen, bronchodilators-management as per primary team and pulmonology Patient has history of heavy tobacco abuse but reports that he has quit tobacco. He was advised to continue to abstain from smoking. (3) COPD exacerbation: Code(s): J44.1 - Chronic obstructive pulmonary disease with (acute) exacerbation Status: Acute Assessment and Plan: Management as per primary team (4) KAL (obstructive sleep apnea): Code(s): G47.33 - Obstructive sleep apnea (adult) (pediatric) Status: Acute Assessment and Plan: CP with supplemental oxygen Subjective Date/time seen: 11/19/24 13:02 Interval history: Cardiology follow up visit 11/17/2024-patient reports modest improvement in dyspnea. He states that his heart rate goes up when he coughs. On telemetry, he has been in atrial fibrillation with heart rates in 100s to 110s. 11/18/2024:Feeling okay today. Some improvement in breathing. Coughing up thick mucus. Telemetry shows atrial fibrillation with rates frequently in the 120-130bpm range and elevations to the 150's with activity and coughing. Denies palpitations, chest pain. 11/19/2024: He is now in atrial flutter with rate well controlled on telemetry. Review of Systems Review of Systems: General: Negative for fever, chills, fatigue Psychological: Negative for anxiety, depression Ophthalmic: negative for loss of vision ENT: Negative for epistaxis, headaches Allergy and immunology: Negative for hives, nasal congestion Hematologic and lymphatic: Negative for overt bleeding problems Endocrine: Negative for hot flashes, palpitations Respiratory: Positive for cough and worsening dyspnea Cardiovascular: Negative for chest pain, positive for worsening dyspnea Gastrointestinal: Negative for abdominal pain, nausea, vomiting, hematochezia Musculoskeletal: Negative for myalgia, joint pains Neurological: Negative for weakness Dermatological: Negative for rash, skin discoloration Exam Narrative: PHYSICAL EXAMINATION: GENERAL: Morbidly obese male, on supplemental oxygen; no acute distress MENTAL STATUS: affect appropriate to mood EYES: Extraocular movements intact, no pallor EARS: External ears appear normal, hearing grossly normal NOSE: Normal and patent, no discharge MOUTH: Mucous membranes moist, tongue normal NECK: Supple, JVP not appreciable, thick neck CHEST: Good respiratory effort, clear to auscultation HEART: Normal rate, irregularly irregular rhythm ABDOMEN: Soft, nontender NEUROLOGICAL: Alert, oriented, normal speech, no gross motor deficits MUSCULOSKELETAL: No major deformity, no amputation EXTREMITIES: Mild pedal edema, no clubbing, no cyanosis SKIN: no rash on the exposed area, no cyanosis PSYCHIATRIC: Normal mood, appropriate affect Objective Data Vital Signs Vital Signs: Vital Signs - 24 hr 11/18/24 13:58 11/18/24 14:00 11/18/24 14:07 Temperature Pulse Rate 85 78 85 Respiratory Rate Blood Pressure 107/51 L 107/51 L Pulse Oximetry 93 Oxygen Delivery Oxygen Flow Rate Fraction of Inspired Oxygen 11/18/24 14:41 11/18/24 14:42 11/18/24 15:35 Temperature 36.9 C Pulse Rate 86 86 98 Respiratory Rate 20 20 20 Blood Pressure 115/63 Pulse Oximetry 93 91 Oxygen Delivery High Flow Therapy with Na Oxygen Flow Rate 50 Fraction of Inspired Oxygen 45 11/18/24 16:00 11/18/24 16:00 11/18/24 16:00 Temperature Pulse Rate 103 H 98 Respiratory Rate Blood Pressure 115/63 Pulse Oximetry 94 Oxygen Delivery High Flow Therapy with Na Oxygen Flow Rate 50 Fraction of Inspired Oxygen 35 11/18/24 17:02 11/18/24 17:02 11/18/24 18:00 Temperature Pulse Rate 98 98 87 Respiratory Rate Blood Pressure 143/71 H Pulse Oximetry 94 Oxygen Delivery Oxygen Flow Rate Fraction of Inspired Oxygen 11/18/24 18:00 11/18/24 18:00 11/18/24 19:26 Temperature Pulse Rate 101 H 87 Respiratory Rate Blood Pressure 143/71 H Pulse Oximetry 92 Oxygen Delivery High Flow Therapy with Na Oxygen Flow Rate 50 Fraction of Inspired Oxygen 35 11/18/24 20:00 11/18/24 20:00 11/18/24 20:00 Temperature 36.3 C L Pulse Rate 80 80 80 Respiratory Rate 20 Blood Pressure 127/57 L 127/57 L Pulse Oximetry 93 Oxygen Delivery Oxygen Flow Rate Fraction of Inspired Oxygen 11/18/24 20:23 11/18/24 20:51 11/18/24 21:16 Temperature Pulse Rate 91 81 81 Respiratory Rate 20 20 Blood Pressure Pulse Oximetry Oxygen Delivery Oxygen Flow Rate Fraction of Inspired Oxygen 11/18/24 22:00 11/18/24 22:00 11/18/24 22:16 Temperature 36.8 C Pulse Rate 82 82 88 Respiratory Rate 18 Blood Pressure 127/70 127/70 Pulse Oximetry 92 Oxygen Delivery Oxygen Flow Rate Fraction of Inspired Oxygen 11/18/24 23:42 11/18/24 23:50 11/18/24 23:55 Temperature 36.6 C Pulse Rate 81 81 79 Respiratory Rate 20 Blood Pressure 115/71 115/71 Pulse Oximetry 92 Oxygen Delivery Oxygen Flow Rate Fraction of Inspired Oxygen 11/19/24 00:00 11/19/24 00:00 11/19/24 01:00 Temperature Pulse Rate 79 81 Respiratory Rate 20 Blood Pressure Pulse Oximetry 92 Oxygen Delivery High Flow Therapy with Na Oxygen Flow Rate 50 Fraction of Inspired Oxygen 35 11/19/24 01:00 11/19/24 01:32 11/19/24 02:00 Temperature Pulse Rate 103 H 81 82 Respiratory Rate 22 H 20 18 Blood Pressure 116/65 Pulse Oximetry 93 95 Oxygen Delivery BiPAP Oxygen Flow Rate Fraction of Inspired Oxygen 11/19/24 02:00 11/19/24 02:30 11/19/24 03:53 Temperature Pulse Rate 82 80 Respiratory Rate Blood Pressure 116/65 Pulse Oximetry 94 Oxygen Delivery High Flow Therapy with Na Oxygen Flow Rate 50 Fraction of Inspired Oxygen 35 11/19/24 04:00 11/19/24 04:00 11/19/24 04:08 Temperature 36.8 C Pulse Rate 79 87 103 H Respiratory Rate 16 22 H Blood Pressure 101/60 Pulse Oximetry 95 93 Oxygen Delivery BiPAP Oxygen Flow Rate Fraction of Inspired Oxygen 11/19/24 06:00 11/19/24 06:30 11/19/24 06:35 Temperature 36.6 C Pulse Rate 81 81 81 Respiratory Rate 24 H Blood Pressure 110/62 Pulse Oximetry 96 Oxygen Delivery Oxygen Flow Rate Fraction of Inspired Oxygen 11/19/24 06:35 11/19/24 06:43 11/19/24 07:42 Temperature 37.0 C Pulse Rate 81 104 H 83 Respiratory Rate 16 Blood Pressure 110/62 126/64 Pulse Oximetry 94 Oxygen Delivery Oxygen Flow Rate Fraction of Inspired Oxygen 11/19/24 10:00 11/19/24 10:00 11/19/24 10:10 Temperature 36.6 C Pulse Rate 104 H 94 85 Respiratory Rate 18 20 Blood Pressure 124/71 Pulse Oximetry 94 Oxygen Delivery Oxygen Flow Rate Fraction of Inspired Oxygen 11/19/24 10:30 11/19/24 11:24 Temperature 36.6 C Pulse Rate 85 79 Respiratory Rate 20 18 Blood Pressure 110/57 L Pulse Oximetry 93 Oxygen Delivery Oxygen Flow Rate Fraction of Inspired Oxygen Intake/Output Intake/Output: Intake & Output 11/16/24 11/17/24 11/18/24 11/19/24 23:59 23:59 23:59 23:59 Intake Total 2315.6 4226.6 3373.5 1010.0 Output Total 1750 3125 2050 2100 Balance 565.6 1101.6 1323.5 -1090.0 Meds/Results Medications: Active Medications Generic Name Dose Route Start Last Admin Trade Name Freq PRN Reason Stop Dose Admin Acetaminophen 650 mg 11/13/24 16:47 11/17/24 15:11 Acetaminophen 325 Mg Tablet PO 650 mg Q4H PRN Administration Mild Pain (1-3) or Fever Hydrocodone Bitart/Acetaminophen 1 tab 02/20/25 20:51 11/18/24 22:12 Hydrocodone/Acetaminophen (*Crx) 5-325 Mg Tablet PO 1 tab Q8H PRN Administration Pain Acetylcysteine 200 mg 11/17/24 14:00 11/19/24 01:00 Acetylcysteine 20% Inhal Soln 800 Mg/4 Ml Vial INHALATION 200 mg Q6HRT SASHA Administration Albuterol 2.5 mg 11/14/24 10:29 Albuterol Sulfate Neb 2.5 Mg/3 Ml Inh INHALATION Q4HRT PRN Shortness Of Breath Apixaban 5 mg 11/16/24 21:00 11/19/24 10:01 Apixaban 5 Mg Tablet PO 5 mg Q12HR SASHA Administration Atorvastatin Calcium 80 mg 11/14/24 21:00 11/18/24 20:23 Atorvastatin 40 Mg Tablet PO 80 mg HS SASHA Administration Dextrose 12.5 gm 11/14/24 20:53 Dextrose 50% 25 Gm/50 Ml Syringe IV PUSH PRN PRN Hypoglycemia Protocol Diltiazem HCl 60 mg 11/19/24 12:55 11/19/24 13:01 Diltiazem Hcl 60 Mg Tablet PO 60 mg Q6HR SASHA Administration Glucagon 1 mg 11/14/24 20:53 Glucagon For Inj 1 Mg Vial IM PRN PRN Hypoglycemia Protocol Glucose 15 gm 11/14/24 20:53 Glucose Oral Gel 15 Gm Of Glucse In 37.5 Gm Tube PO PRN PRN Hypoglycemia Protocol Guaifenesin 1,200 mg 11/16/24 21:00 11/19/24 10:00 Guaifenesin 12 Hr 600 Mg Tabcr PO 1,200 mg Q12HR SASHA Administration Dextrose 1,000 mls @ 100 mls/hr 11/14/24 20:53 Dextrose 5% 1,000 Ml IVPB PRN PRN Hypoglycemia Protocol Diltiazem HCl 100 mg in 100 mls @ 15 mls/hr 11/16/24 08:10 11/19/24 06:35 Cardizem 100 Mg/100 Ml IV CONT 15 mg/hr .Q6H40M SASHA 15 mls/hr Infusion 15 MG/HR Insulin Aspart 4 - 8 units 11/15/24 08:00 11/19/24 13:00 Insulin Aspart (*Bkc) 100 Units/Ml SUB-Q Not Given TIDWM SASHA Protocol Insulin Aspart 10 units 11/16/24 17:00 11/19/24 13:02 Insulin Aspart (*Bkc) 100 Units/Ml SUB-Q 10 units TIDWM SASHA Administration Insulin Glargine 18 units 11/16/24 16:45 11/19/24 05:56 Insulin Glargine (*Bkc) 100 Units/Ml SUB-Q 18 units Q12H SASHA Administration Ipratropium [place] 0.5 mg 11/16/24 02:00 11/19/24 10:12 Ipratropium Br 0.02% Inh Soln 0.5 Mg/2.5 Ml Vial INHALATION 0.5 mg Q6HRT [facility] Administration Levalbuterol HCl 1.25 mg 11/16/24 02:00 11/19/24 10:12 Levalbuterol Neb 1.25 Mg/3 Ml INHALATION 1.25 mg Q6HRT [facility] Administration Levofloxacin 750 mg 11/19/24 21:00 Levofloxacin 750 Mg Tablet PO 11/21/24 21:01 QHS [facility] Lisinopril 30 mg 11/15/24 09:00 11/19/24 10:00 Lisinopril 10 Mg Tablet PO 30 mg DAILY [facility] Administration Metoprolol Tartrate 25 mg 11/18/24 21:00 11/19/24 10:00 Metoprolol Tartrate 25 Mg Tablet PO 25 mg Q12HR [facility] Administration Nicotine 1 patch 11/15/24 14:45 11/19/24 10:01 Nicotine (*Pbkc) 21 Mg Patch TRANSDERM 1 patch DAILY [facility] Administration Ondansetron HCl 4 mg 11/13/24 16:47 Ondansetron Inj 4 Mg/2 Ml Vial IV PUSH Q4H PRN Nausea Pantoprazole Sodium 40 mg 11/15/24 09:00 11/19/24 10:00 Pantoprazole 40 Mg Tablet PO 40 mg QAM [facility] Administration Prednisone 40 mg 11/19/24 08:00 11/19/24 10:00 Prednisone 20 Mg Tablet PO 40 mg DAILY@0800 [facility] Administration Fluticasone/Salmeterol 2 puff 11/14/24 20:00 11/19/24 10:12 Fluticasone/Salmeterol 115-21 Mcg Inhaler 1 Puff INHALATION Not Given Q12HRT [facility] Umeclidinium [place] 1 puff 11/15/24 08:00 11/19/24 10:12 Umeclidinium [place] 62.5 Mcg Ellipta INHALATION 1 puff DAILYRT SASHA Administration Radiology Results: ITS Impressions Chest CTA 11/16/24 11:31 IMPRESSION: 1. No pulmonary embolism. 2. No significant change in a 2.5 x 1.7 cm nodule with lobular margins and some central cavitation in the superior segment of the right lower lobe which could be infectious, inflammatory or malignant in etiology. Recommend routine CT- guided biopsy. 3. Mild emphysema. 4. Scattered bronchial mucous plugging in the bilateral lower lobes consistent with bronchitis with dependent consolidation in the dependent aspect of the lower lobes and favor secondary atelectasis over pneumonia. 5. 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 Chest X-Ray 11/18/24 06:51 Impression: Discoid left basilar atelectasis, less likely pneumonia. Right lung clear. Labs Labs: Laboratory Results - last 24 hr 11/18/24 11/18/24 11/19/24 16:14 20:23 04:53 WBC 11.2 H RBC 4.78 Hgb 14.4 Hct 44.5 MCV 93.1 MCH 30.1 MCHC 32.4 RDW 14.6 H Plt Count 203 MPV 10.3 Immature Gran % (Auto) 1.3 H Neut % (Auto) 80.3 H Lymph % (Auto) 8.2 L [place] % (Auto) 10.0 H Eos % (Auto) 0.0 Baso % (Auto) 0.2 Lymph # (Auto) 0.92 [place] # (Auto) 1.1 H Eos # (Auto) 0.0 Baso # (Auto) 0.0 Abs Immat Gran (auto) 0.14 H Absolute Neuts (auto) 9.0 H Absolute Nucleated RBC 0.000 Nucleated RBC % 0.0 Sodium 132 L Potassium 4.5 Chloride 97 L Carbon Dioxide 27 Anion Gap 8 BUN 34 H Creatinine 0.84 Estim Creat Clear Calc 152 Estimated GFR > 60 Glucose 189 H POC Capillary Glucose 209 H 235 H Calcium 8.2 L Magnesium 2.2 Total Bilirubin 0.6 AST 20 ALT 28 Alkaline Phosphatase 68 Total Protein 6.0 L Albumin 3.0 L 11/19/24 11/19/24 07:21 11:26 WBC RBC Hgb Hct MCV MCH MCHC RDW Plt Count MPV Immature Gran % (Auto) Neut % (Auto) Lymph % (Auto) [place] % (Auto) Eos % (Auto) Baso % (Auto) Lymph # (Auto) [place] # (Auto) Eos # (Auto) Baso # (Auto) Abs Immat Gran (auto) Absolute Neuts (auto) Absolute Nucleated RBC Nucleated RBC % Sodium Potassium Chloride Carbon Dioxide Anion Gap BUN Creatinine Estim Creat Clear Calc Estimated GFR Glucose POC Capillary Glucose 232 H 174 H Calcium Magnesium Total Bilirubin AST ALT Alkaline Phosphatase Total Protein Albumin Quality VTE Prophylaxis VTE prophylaxis: pharmacologic ordered
--- NOTE | 2024-11-19 13:46 | P.PNIM_ITS ---
Progress Note: A&P Assessment and Plan (1) Acute respiratory failure with hypoxia and hypercapnia: Code(s): J96.01 - Acute respiratory failure with hypoxia; J96.02 - Acute respiratory failure with hypercapnia Status: Acute (2) COPD exacerbation: Code(s): J44.1 - Chronic obstructive pulmonary disease with (acute) exacerbation Status: Acute (3) Hypertension: Code(s): I10 - Essential (primary) hypertension Status: Acute (4) Hyperlipidemia: Code(s): E78.5 - Hyperlipidemia, unspecified Status: Acute (5) Obstructive sleep apnea: Code(s): G47.33 - Obstructive sleep apnea (adult) (pediatric) Status: Acute (6) Tobacco use: Code(s): Z72.0 - Tobacco use Status: Acute Plan The patient presented to the emergency department for evaluation of increasing cough and shortness of breath the last couple of days with some confusion this morning COPD exacerbation Patient has history of COPD, patient has worsening shortness breath and productive cough Continue scheduled DuoNeb, start albuterol nebulizer Q 4 p.r.n. albuterol has been switched to leave albuterol due to AFib with RVR on Solu-Medrol 60 mg q.6 hours scheduled. add Symbicort Continue Levaquin IV, and bronchodilators Decrease methylprednisolone to 40 mg q.8 hours IV no switched to prednisone Nasal MRSA is negative. Stop vancomycin. Continue on levofloxacin Sputum culture pending Acute on chronic respiratory failure Patient has history of chronic hypoxemia Now patient is on high-flow oxygen via nasal cannular Follow-up ABG showed hypercapnia, hypoxemic respiratory failure, pH 7.34, pCO2 64.8 PaO2 continue improved to 85.2 11/14 CTA reviewed Pulmonary consultation Taper oxygen as tolerated. Uncontrolled type 2 diabetes Patient is not on medication at home A1c 8.0 Started on Lantus 24 unit daily, aspart 6 unit a.c., continue sliding scale Adjust insulin Smoking cessation is imperative and was discussed. Nicotine patch ordered per patient request. Blood pressures are stable. Continue home medication AFib with RVR new diagnosis. Remains on Cardizem drip. Cardiology consult. Echo on August 2024 with EF 55-60% no significant valvular disease. TSH normal. TSH in August 0.09. On oral Cardizem. Added on beta-roberto 11/18/2024 Rheumatoid arthritis takes diclofenac not on any immunomodulators RF 16.9 follow-up as an outpatient basis DVT prophylaxis heparin drip now started on eliquis Code status full code Subjective Date/time seen: 11/19/24 13:46 Interval history: No overnight events. He is down down to high-flow nasal cannula now. Use BiPAP overnight. AFib is controlled. Remains on Cardizem drip. Review of Systems Review of Systems: All systems reviewed & are unremarkable except as noted in HPI and below Exam Narrative: GENERAL: Pleasant, in no acute distress. Well-nourished. On Airvo 50 L 35% - EYES: EOMI. Anicteric. - HENT: Moist mucous membranes. - LUNGS: Diminished breath sounds bilat erally no respiratory distress - CARDIOVASCULAR: Irregularly irregular rhythm rate controlled No murmur. No JVD. - ABDOMEN: Soft, non-tender and non-dist ended. No palpable masses. - EXTREMITIES: No edema. Peripheral puls es 2+. Non-tender. - NEUROLOGIC: No focal neurological defi cits. CN II-XII grossly intact. General weakness - PSYCHIATRIC: Awake, Alert and oriented x 3. Appropriate mood and affect. - SKIN: No rashes or lesions. Warm. - LYMPH: No cervical lymphadenopathy. Objective Data Vital Signs Vital Signs: Vital Signs - 24 hr 11/18/24 13:58 11/18/24 14:00 11/18/24 14:07 Temperature Pulse Rate 85 78 85 Respiratory Rate Blood Pressure 107/51 L 107/51 L Pulse Oximetry 93 Oxygen Delivery Oxygen Flow Rate Fraction of Inspired Oxygen 11/18/24 14:41 11/18/24 14:42 11/18/24 15:35 Temperature 98.4 F Pulse Rate 86 86 98 Respiratory Rate 20 20 20 Blood Pressure 115/63 Pulse Oximetry 93 91 Oxygen Delivery High Flow Therapy with Na Oxygen Flow Rate 50 Fraction of Inspired Oxygen 45 11/18/24 16:00 11/18/24 16:00 11/18/24 16:00 Temperature Pulse Rate 103 H 98 Respiratory Rate Blood Pressure 115/63 Pulse Oximetry 94 Oxygen Delivery High Flow Therapy with Na Oxygen Flow Rate 50 Fraction of Inspired Oxygen 35 11/18/24 17:02 11/18/24 17:02 11/18/24 18:00 Temperature Pulse Rate 98 98 87 Respiratory Rate Blood Pressure 143/71 H Pulse Oximetry 94 Oxygen Delivery Oxygen Flow Rate Fraction of Inspired Oxygen 11/18/24 18:00 11/18/24 18:00 11/18/24 19:26 Temperature Pulse Rate 101 H 87 Respiratory Rate Blood Pressure 143/71 H Pulse Oximetry 92 Oxygen Delivery High Flow Therapy with Na Oxygen Flow Rate 50 Fraction of Inspired Oxygen 35 11/18/24 20:00 11/18/24 20:00 11/18/24 20:00 Temperature 97.3 F L Pulse Rate 80 80 80 Respiratory Rate 20 Blood Pressure 127/57 L 127/57 L Pulse Oximetry 93 Oxygen Delivery Oxygen Flow Rate Fraction of Inspired Oxygen 11/18/24 20:23 11/18/24 20:51 11/18/24 21:16 Temperature Pulse Rate 91 81 81 Respiratory Rate 20 20 Blood Pressure Pulse Oximetry Oxygen Delivery Oxygen Flow Rate Fraction of Inspired Oxygen 11/18/24 22:00 11/18/24 22:00 11/18/24 22:16 Temperature 98.3 F Pulse Rate 82 82 88 Respiratory Rate 18 Blood Pressure 127/70 127/70 Pulse Oximetry 92 Oxygen Delivery Oxygen Flow Rate Fraction of Inspired Oxygen 11/18/24 23:42 11/18/24 23:50 11/18/24 23:55 Temperature 97.9 F Pulse Rate 81 81 79 Respiratory Rate 20 Blood Pressure 115/71 115/71 Pulse Oximetry 92 Oxygen Delivery Oxygen Flow Rate Fraction of Inspired Oxygen 11/19/24 00:00 11/19/24 00:00 11/19/24 01:00 Temperature Pulse Rate 79 81 Respiratory Rate 20 Blood Pressure Pulse Oximetry 92 Oxygen Delivery High Flow Therapy with Na Oxygen Flow Rate 50 Fraction of Inspired Oxygen 35 11/19/24 01:00 11/19/24 01:32 11/19/24 02:00 Temperature Pulse Rate 103 H 81 82 Respiratory Rate 22 H 20 18 Blood Pressure 116/65 Pulse Oximetry 93 95 Oxygen Delivery BiPAP Oxygen Flow Rate Fraction of Inspired Oxygen 11/19/24 02:00 11/19/24 02:30 11/19/24 03:53 Temperature Pulse Rate 82 80 Respiratory Rate Blood Pressure 116/65 Pulse Oximetry 94 Oxygen Delivery High Flow Therapy with Na Oxygen Flow Rate 50 Fraction of Inspired Oxygen 35 11/19/24 04:00 11/19/24 04:00 11/19/24 04:08 Temperature 98.3 F Pulse Rate 79 87 103 H Respiratory Rate 16 22 H Blood Pressure 101/60 Pulse Oximetry 95 93 Oxygen Delivery BiPAP Oxygen Flow Rate Fraction of Inspired Oxygen 11/19/24 06:00 11/19/24 06:30 11/19/24 06:35 Temperature 97.9 F Pulse Rate 81 81 81 Respiratory Rate 24 H Blood Pressure 110/62 Pulse Oximetry 96 Oxygen Delivery Oxygen Flow Rate Fraction of Inspired Oxygen 11/19/24 06:35 11/19/24 06:43 11/19/24 07:42 Temperature 98.6 F Pulse Rate 81 104 H 83 Respiratory Rate 16 Blood Pressure 110/62 126/64 Pulse Oximetry 94 Oxygen Delivery Oxygen Flow Rate Fraction of Inspired Oxygen 11/19/24 10:00 11/19/24 10:00 11/19/24 10:10 Temperature 97.9 F Pulse Rate 104 H 94 85 Respiratory Rate 18 20 Blood Pressure 124/71 Pulse Oximetry 94 Oxygen Delivery Oxygen Flow Rate Fraction of Inspired Oxygen 11/19/24 10:30 11/19/24 11:24 11/19/24 13:04 Temperature 97.8 F Pulse Rate 85 79 80 Respiratory Rate 20 18 Blood Pressure 110/57 L Pulse Oximetry 93 Oxygen Delivery Oxygen Flow Rate Fraction of Inspired Oxygen 11/19/24 13:04 Temperature Pulse Rate 88 Respiratory Rate Blood Pressure Pulse Oximetry Oxygen Delivery Oxygen Flow Rate Fraction of Inspired Oxygen Intake/Output Intake/Output: Intake & Output 11/16/24 11/17/24 11/18/24 11/19/24 23:59 23:59 23:59 23:59 Intake Total 2315.6 4226.6 3373.5 1107.2 Output Total 1750 3125 2050 2100 Balance 565.6 1101.6 1323.5 -992.8 Meds/Results Medications: Active Medications Generic Name Dose Route Start Last Admin Trade Name Freq PRN Reason Stop Dose Admin Acetaminophen 650 mg 11/13/24 16:47 11/17/24 15:11 Acetaminophen 325 Mg Tablet PO 650 mg Q4H PRN Administration Mild Pain (1-3) or Fever Hydrocodone Bitart/Acetaminophen 1 tab 11/14/24 20:51 11/18/24 22:12 Hydrocodone/Acetaminophen (*Crx) 5-325 Mg Tablet PO 1 tab Q8H PRN Administration Pain Acetylcysteine 200 mg 11/17/24 14:00 11/19/24 01:00 Acetylcysteine 20% Inhal Soln 800 Mg/4 Ml Vial INHALATION 200 mg Q6HRT SASHA Administration Albuterol 2.5 mg 11/14/24 10:29 Albuterol Sulfate Neb 2.5 Mg/3 Ml Inh INHALATION Q4HRT PRN Shortness Of Breath Apixaban 5 mg 11/16/24 21:00 11/19/24 10:01 Apixaban 5 Mg Tablet PO 5 mg Q12HR SASHA Administration Atorvastatin Calcium 80 mg 11/14/24 21:00 11/18/24 20:23 Atorvastatin 40 Mg Tablet PO 80 mg HS SASHA Administration Dextrose 12.5 gm 11/14/24 20:53 Dextrose 50% 25 Gm/50 Ml Syringe IV PUSH PRN PRN Hypoglycemia Protocol Diltiazem HCl 60 mg 11/19/24 12:55 11/19/24 13:01 Diltiazem Hcl 60 Mg Tablet PO 60 mg Q6HR SASHA Administration Glucagon 1 mg 11/14/24 20:53 Glucagon For Inj 1 Mg Vial IM PRN PRN Hypoglycemia Protocol Glucose 15 gm 11/14/24 20:53 Glucose Oral Gel 15 Gm Of Glucse In 37.5 Gm Tube PO PRN PRN Hypoglycemia Protocol Guaifenesin 1,200 mg 11/16/24 21:00 11/19/24 10:00 Guaifenesin 12 Hr 600 Mg Tabcr PO 1,200 mg Q12HR SASHA Administration Dextrose 1,000 mls @ 100 mls/hr 11/14/24 20:53 Dextrose 5% 1,000 Ml IVPB PRN PRN Hypoglycemia Protocol Diltiazem HCl 100 mg in 100 mls @ 15 mls/hr 11/16/24 08:10 11/19/24 13:04 Cardizem 100 Mg/100 Ml IV CONT 15 mg/hr .Q6H40M SASHA 15 mls/hr Administration 15 MG/HR Insulin Aspart 4 - 8 units 11/15/24 08:00 11/19/24 13:00 Insulin Aspart (*Bkc) 100 Units/Ml SUB-Q Not Given TIDWM [facility] Protocol Insulin Aspart 10 units 11/16/24 17:00 11/19/24 13:02 Insulin Aspart (*Bkc) 100 Units/Ml SUB-Q 10 units TIDWM SASHA Administration Insulin Glargine 18 units 11/16/24 16:45 11/19/24 05:56 Insulin Glargine (*Bkc) 100 Units/Ml SUB-Q 18 units Q12H [facility] Administration Ipratropium [place] 0.5 mg 11/16/24 02:00 11/19/24 10:12 Ipratropium Br 0.02% Inh Soln 0.5 Mg/2.5 Ml Vial INHALATION 0.5 mg Q6HRT SASHA Administration Levalbuterol HCl 1.25 mg 11/16/24 02:00 11/19/24 10:12 Levalbuterol Neb 1.25 Mg/3 Ml INHALATION 1.25 mg Q6HRT [facility] Administration Levofloxacin 750 mg 11/19/24 21:00 Levofloxacin 750 Mg Tablet PO 11/21/24 21:01 QHS [facility] Lisinopril 30 mg 11/15/24 09:00 11/19/24 10:00 Lisinopril 10 Mg Tablet PO 30 mg DAILY [facility] Administration Metoprolol Tartrate 25 mg 11/18/24 21:00 11/19/24 10:00 Metoprolol Tartrate 25 Mg Tablet PO 25 mg Q12HR [facility] Administration Nicotine 1 patch 11/15/24 14:45 11/19/24 10:01 Nicotine (*Pbkc) 21 Mg Patch TRANSDERM 1 patch DAILY [facility] Administration Ondansetron HCl 4 mg 11/13/24 16:47 Ondansetron Inj 4 Mg/2 Ml Vial IV PUSH Q4H PRN Nausea Pantoprazole Sodium 40 mg 11/15/24 09:00 11/19/24 10:00 Pantoprazole 40 Mg Tablet PO 40 mg QAM [facility] Administration Prednisone 40 mg 11/19/24 08:00 11/19/24 10:00 Prednisone 20 Mg Tablet PO 40 mg DAILY@0800 [facility] Administration Fluticasone/Salmeterol 2 puff 11/14/24 20:00 11/19/24 10:12 Fluticasone/Salmeterol 115-21 Mcg Inhaler 1 Puff INHALATION Not Given Q12HRT [facility] Umeclidinium [place] 1 puff 11/15/24 08:00 11/19/24 10:12 Umeclidinium [place] 62.5 Mcg Ellipta INHALATION 1 puff DAILYRT SASHA Administration Radiology Results: ITS Impressions Chest CTA 11/16/24 11:31 IMPRESSION: 1. No pulmonary embolism. 2. No significant change in a 2.5 x 1.7 cm nodule with lobular margins and some central cavitation in the superior segment of the right lower lobe which could be infectious, inflammatory or malignant in etiology. Recommend routine CT- guided biopsy. 3. Mild emphysema. 4. Scattered bronchial mucous plugging in the bilateral lower lobes consistent with bronchitis with dependent consolidation in the dependent aspect of the lower lobes and favor secondary atelectasis over pneumonia. 5. 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 Chest X-Ray 11/18/24 06:51 Impression: Discoid left basilar atelectasis, less likely pneumonia. Right lung clear. Labs Labs: Laboratory Results - last 24 hr 11/18/24 11/18/24 11/19/24 16:14 20:23 04:53 WBC 11.2 H RBC 4.78 Hgb 14.4 Hct 44.5 MCV 93.1 MCH 30.1 MCHC 32.4 RDW 14.6 H Plt Count 203 MPV 10.3 Immature Gran % (Auto) 1.3 H Neut % (Auto) 80.3 H Lymph % (Auto) 8.2 L [place] % (Auto) 10.0 H Eos % (Auto) 0.0 Baso % (Auto) 0.2 Lymph # (Auto) 0.92 [place] # (Auto) 1.1 H Eos # (Auto) 0.0 Baso # (Auto) 0.0 Abs Immat Gran (auto) 0.14 H Absolute Neuts (auto) 9.0 H Absolute Nucleated RBC 0.000 Nucleated RBC % 0.0 Sodium 132 L Potassium 4.5 Chloride 97 L Carbon Dioxide 27 Anion Gap 8 BUN 34 H Creatinine 0.84 Estim Creat Clear Calc 152 Estimated GFR > 60 Glucose 189 H POC Capillary Glucose 209 H 235 H Calcium 8.2 L Magnesium 2.2 Total Bilirubin 0.6 AST 20 ALT 28 Alkaline Phosphatase 68 Total Protein 6.0 L Albumin 3.0 L 11/19/24 11/19/24 07:21 11:26 WBC RBC Hgb Hct MCV MCH MCHC RDW Plt Count MPV Immature Gran % (Auto) Neut % (Auto) Lymph % (Auto) [place] % (Auto) Eos % (Auto) Baso % (Auto) Lymph # (Auto) [place] # (Auto) Eos # (Auto) Baso # (Auto) Abs Immat Gran (auto) Absolute Neuts (auto) Absolute Nucleated RBC Nucleated RBC % Sodium Potassium Chloride Carbon Dioxide Anion Gap BUN Creatinine Estim Creat Clear Calc Estimated GFR Glucose POC Capillary Glucose 232 H 174 H Calcium Magnesium Total Bilirubin AST ALT Alkaline Phosphatase Total Protein Albumin
[2024-11-19 16:55] LABS: Glucose Point of Care 303 mg/dl (65-105)
[2024-11-19] MEDS: ATORVASTATIN 40 MG TABLET 80 MG PO (20:27)
[2024-11-19] MEDS: levoFLOXacin 750 MG TABLET PO (20:27)
[2024-11-19] MEDS: FLUTICASONE/SALMETEROL 115-21 MCG INHALER 1 PUFF 2 PUFF INHALATION (20:36)
[2024-11-19] MEDS: HYDROcodone/acetaminophen (*CRX) 5-325 MG TABLET 1 TAB PO (23:20)
--- NOTE | 2024-11-19 23:25 | PCRCNOTE ---
Pt refused sleep study. Pt stated that he doesn't want to do study because he only sleeps 2 hours a night.
[2024-11-20] VITALS (33 sets, daily range): BP systolic 106–154; BP diastolic 53–88; PULSE 77–97; RESP 16–27; TEMP 36.5–36.7; O2SAT 92–99
[2024-11-20 00:30] LABS: Glucose Point of Care 187 mg/dl (65-105)
[2024-11-20] MEDS: ACETYLCYSTEINE 20% INHAL SOLN 800 MG/4 ML VIAL 200 MG INHALATION ×4 (02:37→20:02)
[2024-11-20] MEDS: LEVALBUTEROL NEB 1.25 MG/3 ML INHALATION ×2 (02:37→08:33)
[2024-11-20] MEDS: IPRATROPIUM BR 0.02% INH SOLN 0.5 MG/2.5 ML VIAL INHALATION ×4 (02:38→20:02)
[2024-11-20] MEDS: INSULIN GLARGINE (*BKC) 100 UNITS/ML 18 UNITS SUB-Q ×2 (04:11→18:15)
[2024-11-20] MEDS: dilTIAZem 100 MG/100 ML 100 MG/100 ML BAG 15 MG IV CONT ×2 (04:12→11:38)
[2024-11-20 04:21] LABS: Glucose Point of Care 153 mg/dl (65-105)
[2024-11-20] MEDS: dilTIAZem HCL 60 MG TABLET PO ×3 (05:18→18:13)
[2024-11-20 05:47] LABS: Basophils Absolute Auto 0.1 K/mm3 (0.0-0.1); Basophils Percent Auto 0.4 % (0.2-1.2); Eosinophils Absolute Auto 0.1 K/mm3 (0-0.3); Eosinophils Percent Auto 0.8 % (0-4.4); Hemoglobin 14.8 g/dL (14.0-18.0); Immature Granulocyte Absolute 0.23 K/mm3 (0.00-0.031); Lymphocytes Absolute Auto 1.96 K/mm3 (0.9-3.2); Lymphocytes Percent Auto 17.2 % (18.3-44.2); Mean Corpuscular HGB Conc 32.2 g/dl (32-36); Mean Corpuscular Hemoglobin 30.1 pg (26-34); Mean Corpuscular Volume 93.7 fl (80-100); Mean Platelet Volume 10.9 fl (7.4-10.4); Monocytes Absolute Auto 1.1 K/mm3 (0.1-0.6); Monocytes Percent Auto 9.3 % (2.6-8.5); Neutrophils Percent Auto 70.3 % (45.5-73.1); Platelet Count Result 234 k/mm3 (150-375); Red Blood Count 4.91 M/mm3 (4.6-6.20); Red Cell Distribution Width 15.1 % (11.5-14.5); White Blood Count 11.4 K/mm3 (4.5-10.0)
[2024-11-20 06:04] LABS: Potassium 4.1 mmol/L (3.4-5.0)
[2024-11-20 06:08] LABS: Alanine Aminotransferase 30 U/L (6-50); Alkaline Phosphatase 70 U/L (38-126); Anion Gap 5 mmol/L (4-12); Aspartate Amino Transferase 23 U/L (17-59); Bilirubin,Total 0.8 mg/dL (0.2-1.3); Blood Urea Nitrogen 36 mg/dL (9-20); Calcium 8.2 mg/dL (8.4-10.2); Carbon Dioxide 30 mmol/L (22-30); Chloride 98 mmol/L (98-107); Estimated CRCL calculation 159 ml/min; Estimated Glomerular Filt Rate > 60; Glucose 139 mg/dL (65-110); Magnesium 2.1 mg/dL (1.6-2.3); Sodium 133 mmol/L (137-145)
[2024-11-20 08:07] LABS: Glucose Point of Care 139 mg/dl (65-105)
[2024-11-20] MEDS: FLUTICASONE/SALMETEROL 115-21 MCG INHALER 1 PUFF 2 PUFF INHALATION ×2 (08:34→20:02)
[2024-11-20] MEDS: UMECLIDINIUM BROMIDE 62.5 MCG ELLIPTA 1 PUFF INHALATION (08:34)
--- NOTE | 2024-11-20 09:38 | P.PNPL_ITS ---
Progress Note: A&P Assessment and Plan (1) Obesity hypoventilation syndrome: Code(s): E66.2 - Morbid (severe) obesity with alveolar hypoventilation Status: Acute Assessment and Plan: This 54-year-old man, with chronic hypoxemic and hypercapnic respiratory failure and a similar hospitalization three months ago, is presenting again with acute on chronic hypercapnic respiratory failure. He has responded well to treatment with noninvasive ventilatory support and management for a possible COPD exacerbation, including antibiotics, bronchodilators, and IV steroids. Currently, he is improving and tolerating the AVAPS mode for ventilatory support at night, along with supplemental oxygen via high-flow nasal cannula during the day. On physical examination, he has clear lungs. Based on his history of mild obstructive sleep apnea and significant weight gain over the past 13 years, his chronic hypercapnic hypoxemic respiratory failure is most likely related to untreated obesity hypoventilation. Despite a long history of smoking, his chest CT shows only mild paraseptal emphysema, and given his age, it is highly likely that obesity hypoventilation is the primary cause of his hypercapnic respiratory failure rather than end-stage COPD. No pulmonary function testing is available for review. The patient will benefit from home ventilatory support for obesity hypoventilation syndrome (OHS), having experienced two hospitalizations for acute on chronic hypercapnic respiratory failure over the past three months. While the patient has responded well to the BiPAP machine during these hospitalizations, transitioning to a home ventilator offers more advanced and customizable ventilatory support. Home ventilators can deliver precise tidal volumes and adjust more effectively to the patient's specific needs, optimizing ventilation and improving gas exchange, which is crucial in managing OHS. Importantly, the use of home ventilators can reduce the frequency of hospital admissions and enhance overall health outcomes for patients with severe respiratory failure due to OHS. Efforts are underway to get approval through the patient's health insurance for home ventilatory support at night. On physical exam today his lungs were clear with no wheezing. His lower extremity edema overall has decreased. Plan: Continue with current regimen for now. BiPAP support at night. Titrate oxygen lower during the day if tolerated. Discontinue oral steroids. Switch to short- acting bronchodilators on p.r.n. basis. (2) Obstructive sleep apnea: Code(s): G47.33 - Obstructive sleep apnea (adult) (pediatric) Status: Acute (3) Hypercapnia: Code(s): R06.89 - Other abnormalities of breathing Status: Acute (4) Acute on chronic respiratory failure with hypoxia and hypercapnia: Code(s): J96.21 - Acute and chronic respiratory failure with hypoxia; J96.22 - Acute and chronic respiratory failure with hypercapnia Status: Acute (5) Acute respiratory failure: Code(s): J96.00 - Acute respiratory failure, unspecified whether with hypoxia or hypercapnia Status: Acute (6) Atrial fibrillation with RVR: Code(s): I48.91 - Unspecified atrial fibrillation Status: Acute Subjective Date/time seen: 11/20/24 09:38 Interval history: Patient stated he is doing better. He slept well on BiPAP support last night. No wheezing or shortness of breath while in bed. He still on relatively high FiO2. Review of Systems Review of Systems: All systems reviewed & are unremarkable except as noted in HPI and below (HPI and below) Exam Narrative: GENERAL APPEARANCE: Well developed, well nourished, alert and cooperative, morbidly obese and appears to be in no acute distress while on supplemental oxygen SKIN: Inspection of the skin reveals no rashes, ulcerations or petechiae. HEENT: Sclerae anicteric and conjunctivae pink and moist. Extraocular movements were intact and pupils were equal, round, and reactive to light. The oral mucosa, hard and soft palate, tongue and posterior pharynx were normal. NECK: Supple. There was no thyroid enlargement, and no tenderness, or masses were felt. CHEST: Normal AP diameter and normal contour without any kyphoscoliosis. LUNGS: Few scattered wheezes otherwise clear lungs CARDIAC: There was a regular rate and rhythm without any murmurs, gallops, rubs. ABDOMEN: Soft and nontender with normal bowel sounds. There was no organomegaly. LYMPH NODES: No lymphadenopathy was appreciated in the neck.. EXTREMITIES: No cyanosis, clubbing; trace pedal edema NEUROLOGIC: Alert and oriented x 3. Normal affect. Objective Data Vital Signs Vital Signs: Vital Signs - 24 hr 11/19/24 10:00 11/19/24 10:00 11/19/24 10:10 Temperature 36.6 C Pulse Rate 104 H 94 85 Respiratory Rate 18 20 Blood Pressure 124/71 Pulse Oximetry 94 Oxygen Delivery Oxygen Flow Rate 11/19/24 10:30 11/19/24 11:11/19/24 13:04 Temperature 36.6 C Pulse Rate 85 79 80 Respiratory Rate 20 18 Blood Pressure 110/57 L Pulse Oximetry 93 Oxygen Delivery Oxygen Flow Rate 11/19/24 13:04 11/19/24 14:00 11/19/24 14:00 Temperature 36.3 C L Pulse Rate 88 82 87 Respiratory Rate 18 Blood Pressure 124/47 L Pulse Oximetry 100 Oxygen Delivery Oxygen Flow Rate 11/19/24 14:50 11/19/24 14:51 11/19/24 15:08 Temperature Pulse Rate 80 84 Respiratory Rate 20 20 Blood Pressure Pulse Oximetry 93 Oxygen Delivery High Flow Nasal Cannula Oxygen Flow Rate 6 11/19/24 15:20 11/19/24 16:00 11/19/24 18:00 Temperature 36.7 C Pulse Rate 81 83 85 Respiratory Rate 18 Blood Pressure 119/61 Pulse Oximetry 94 Oxygen Delivery Oxygen Flow Rate 11/19/24 18:00 11/19/24 20:00 11/19/24 20:00 Temperature 36.6 C 36.7 C Pulse Rate 82 99 82 Respiratory Rate 20 20 Blood Pressure 110/63 107/56 L Pulse Oximetry 95 93 Oxygen Delivery Oxygen Flow Rate 11/19/24 20:00 11/19/24 20:25 11/19/24 20:25 Temperature Pulse Rate 99 99 Respiratory Rate Blood Pressure 107/56 L 107/56 L Pulse Oximetry 96 Oxygen Delivery High Flow Nasal Cannula Oxygen Flow Rate 6 11/19/24 20:28 11/19/24 20:37 11/19/24 20:37 Temperature Pulse Rate 99 86 Respiratory Rate 20 Blood Pressure Pulse Oximetry 96 Oxygen Delivery High Flow Nasal Cannula Oxygen Flow Rate 6 11/19/24 20:43 11/19/24 22:00 11/19/24 22:00 Temperature Pulse Rate 90 101 H 101 H Respiratory Rate 20 Blood Pressure 120/66 120/66 Pulse Oximetry Oxygen Delivery Oxygen Flow Rate 11/19/24 22:00 11/20/24 00:00 11/20/24 00:00 Temperature 36.7 C Pulse Rate 96 81 81 Respiratory Rate 20 Blood Pressure 113/61 Pulse Oximetry 98 Oxygen Delivery Oxygen Flow Rate 11/20/24 00:00 11/20/24 00:00 11/20/24 02:00 Temperature Pulse Rate 81 80 Respiratory Rate Blood Pressure 113/61 Pulse Oximetry 96 Oxygen Delivery BiPAP Oxygen Flow Rate 11/20/24 02:00 11/20/24 02:00 11/20/24 02:37 Temperature Pulse Rate 80 80 95 Respiratory Rate 17 Blood Pressure 110/61 110/61 Pulse Oximetry Oxygen Delivery Oxygen Flow Rate 11/20/24 02:40 11/20/24 02:42 11/20/24 04:00 Temperature 36.7 C Pulse Rate 95 89 80 Respiratory Rate 17 21 H 20 Blood Pressure 112/63 Pulse Oximetry 94 99 Oxygen Delivery Oxygen Flow Rate 11/20/24 04:00 11/20/24 04:00 11/20/24 04:12 Temperature Pulse Rate 97 80 Respiratory Rate Blood Pressure 112/63 Pulse Oximetry 99 Oxygen Delivery BiPAP Oxygen Flow Rate 11/20/24 04:12 11/20/24 06:00 11/20/24 06:00 Temperature Pulse Rate 80 80 80 Respiratory Rate Blood Pressure 112/63 117/65 Pulse Oximetry Oxygen Delivery Oxygen Flow Rate 11/20/24 06:00 11/20/24 07:33 11/20/24 08:00 Temperature 36.5 C Pulse Rate 80 81 Respiratory Rate 18 Blood Pressure 117/65 137/88 Pulse Oximetry 95 95 Oxygen Delivery High Flow Nasal Cannula Oxygen Flow Rate 6 11/20/24 08:35 11/20/24 08:35 11/20/24 08:54 Temperature Pulse Rate 84 81 Respiratory Rate 20 20 Blood Pressure Pulse Oximetry 94 Oxygen Delivery High Flow Nasal Cannula Oxygen Flow Rate 6 Intake/Output Intake/Output: Intake & Output 11/17/24 11/18/24 11/19/24 11/20/24 23:59 23:59 23:59 23:59 Intake Total 4226.6 3373.5 2810.9 603.3 Output Total 3125 2050 4910 1570 Balance 1101.6 1323.5 -2099.1 -966.7 Meds/Results Medications: Active Medications Generic Name Dose Route Start Last Admin Trade Name Freq PRN Reason Stop Dose Admin Acetaminophen 650 mg 11/13/24 16:47 11/17/24 15:11 Acetaminophen 325 Mg Tablet PO 650 mg Q4H PRN Administration Mild Pain (1-3) or Fever Hydrocodone Bitart/Acetaminophen 1 tab 11/14/24 20:51 11/19/24 23:20 Hydrocodone/Acetaminophen (*Crx) 5-325 Mg Tablet PO 1 tab Q8H PRN Administration Pain Acetylcysteine 200 mg 11/17/24 14:00 11/20/24 08:33 Acetylcysteine 20% Inhal Soln 800 Mg/4 Ml Vial INHALATION 200 mg Q6HRT SASHA Administration Albuterol 2.5 mg 11/14/24 10:29 Albuterol Sulfate Neb 2.5 Mg/3 Ml Inh INHALATION Q4HRT PRN Shortness Of Breath Apixaban 5 mg 11/16/24 21:00 11/19/24 20:28 Apixaban 5 Mg Tablet PO 5 mg Q12HR SASHA Administration Atorvastatin Calcium 80 mg 11/14/24 21:00 11/19/24 20:27 Atorvastatin 40 Mg Tablet PO 80 mg HS SASHA Administration Dextrose 12.5 gm 11/14/24 20:53 Dextrose 50% 25 Gm/50 Ml Syringe IV PUSH PRN PRN Hypoglycemia Protocol Diltiazem HCl 60 mg 11/19/24 12:55 11/20/24 05:18 Diltiazem Hcl 60 Mg Tablet PO 60 mg Q6HR SASHA Administration Glucagon 1 mg 11/14/24 20:53 Glucagon For Inj 1 Mg Vial IM PRN PRN Hypoglycemia Protocol Glucose 15 gm 11/14/24 20:53 Glucose Oral Gel 15 Gm Of Glucse In 37.5 Gm Tube PO PRN PRN Hypoglycemia Protocol Guaifenesin 1,200 mg 11/16/24 21:00 11/19/24 20:27 Guaifenesin 12 Hr 600 Mg Tabcr PO 1,200 mg Q12HR SASHA Administration Dextrose 1,000 mls @ 100 mls/hr 11/14/24 20:53 Dextrose 5% 1,000 Ml IVPB PRN PRN Hypoglycemia Protocol Diltiazem HCl 100 mg in 100 mls @ 15 mls/hr 11/16/24 08:10 11/20/24 06:00 Cardizem 100 Mg/100 Ml IV CONT 15 mg/hr .Q6H40M SASHA 15 mls/hr Infusion 15 MG/HR Insulin Aspart 4 - 8 units 11/15/24 08:00 11/19/24 17:38 Insulin Aspart (*Bkc) 100 Units/Ml SUB-Q 6 units TIDWM SASHA Administration Protocol Insulin Aspart 10 units 11/16/24 17:00 11/19/24 17:40 Insulin Aspart (*Bkc) 100 Units/Ml SUB-Q 10 units TIDWM SASHA Administration Insulin Glargine 18 units 11/16/24 16:45 11/20/24 04:11 Insulin Glargine (*Bkc) 100 Units/Ml SUB-Q 18 units Q12H SASHA Administration Ipratropium [place] 0.5 mg 11/16/24 02:00 11/20/24 08:33 Ipratropium Br 0.02% Inh Soln 0.5 Mg/2.5 Ml Vial INHALATION 0.5 mg Q6HRT SASHA Administration Levofloxacin 750 mg 11/19/24 21:00 11/19/24 20:27 Levofloxacin 750 Mg Tablet PO 11/21/24 21:01 750 mg QHS SASHA Administration Lisinopril 30 mg 11/15/24 09:00 11/19/24 10:00 Lisinopril 10 Mg Tablet PO 30 mg DAILY SASHA Administration Metoprolol Tartrate 25 mg 11/18/24 21:00 11/19/24 20:28 Metoprolol Tartrate 25 Mg Tablet PO 25 mg Q12HR SASHA Administration Nicotine 1 patch 11/15/24 14:45 11/19/24 10:01 Nicotine (*Pbkc) 21 Mg Patch TRANSDERM 1 patch DAILY SASHA Administration Ondansetron HCl 4 mg 11/13/24 16:47 Ondansetron Inj 4 Mg/2 Ml Vial IV PUSH Q4H PRN Nausea Pantoprazole Sodium 40 mg 11/15/24 09:00 11/19/24 10:00 Pantoprazole 40 Mg Tablet PO 40 mg QAM SASHA Administration Fluticasone/Salmeterol 2 puff 11/14/24 20:00 11/20/24 08:34 Fluticasone/Salmeterol 115-21 Mcg Inhaler 1 Puff INHALATION 2 puff Q12HRT SASHA Administration Umeclidinium [place] 1 puff 11/15/24 08:00 11/20/24 08:34 Umeclidinium [place] 62.5 Mcg Ellipta INHALATION 1 puff DAILYRT SASHA Administration Radiology Results: ITS Impressions Chest CTA 11/16/24 11:31 IMPRESSION: 1. No pulmonary embolism. 2. No significant change in a 2.5 x 1.7 cm nodule with lobular margins and some central cavitation in the superior segment of the right lower lobe which could be infectious, inflammatory or malignant in etiology. Recommend routine CT- guided biopsy. 3. Mild emphysema. 4. Scattered bronchial mucous plugging in the bilateral lower lobes consistent with bronchitis with dependent consolidation in the dependent aspect of the lower lobes and favor secondary atelectasis over pneumonia. 5. 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 Chest X-Ray 11/18/24 06:51 Impression: Discoid left basilar atelectasis, less likely pneumonia. Right lung clear. Labs Labs: Laboratory Results - last 24 hr 11/19/24 11/19/24 11/19/24 11:26 16:50 20:24 WBC RBC Hgb Hct MCV MCH MCHC RDW Plt Count MPV Immature Gran % (Auto) Neut % (Auto) Lymph % (Auto) [place] % (Auto) Eos % (Auto) Baso % (Auto) Lymph # (Auto) [place] # (Auto) Eos # (Auto) Baso # (Auto) Abs Immat Gran (auto) Absolute Neuts (auto) Absolute Nucleated RBC Nucleated RBC % Sodium Potassium Chloride Carbon Dioxide Anion Gap BUN Creatinine Estim Creat Clear Calc Estimated GFR Glucose POC Capillary Glucose 174 H 303 H 187 H Calcium Magnesium Total Bilirubin AST ALT Alkaline Phosphatase Total Protein Albumin 11/20/24 11/20/24 11/20/24 04:09 04:48 07:45 WBC 11.4 H RBC 4.91 Hgb 14.8 Hct 46.0 MCV 93.7 MCH 30.1 MCHC 32.2 RDW 15.1 H Plt Count 234 MPV 10.9 H Immature Gran % (Auto) 2.0 H Neut % (Auto) 70.3 Lymph % (Auto) 17.2 L [place] % (Auto) 9.3 H Eos % (Auto) 0.8 Baso % (Auto) 0.4 Lymph # (Auto) 1.96 [place] # (Auto) 1.1 H Eos # (Auto) 0.1 Baso # (Auto) 0.1 Abs Immat Gran (auto) 0.23 H Absolute Neuts (auto) 8.0 H Absolute Nucleated RBC 0.000 Nucleated RBC % 0.0 Sodium 133 L Potassium 4.1 Chloride 98 Carbon Dioxide 30 Anion Gap 5 BUN 36 H Creatinine 0.85 Estim Creat Clear Calc 159 Estimated GFR > 60 Glucose 139 H POC Capillary Glucose 153 H 139 H Calcium 8.2 L Magnesium 2.1 Total Bilirubin 0.8 AST 23 ALT 30 Alkaline Phosphatase 70 Total Protein 6.0 L Albumin 3.0 L
[2024-11-20] MEDS: INSULIN ASPART (*BKC) 100 UNITS/ML 10 UNITS SUB-Q ×3 (09:43→18:12)
[2024-11-20] MEDS: guaiFENesin 12 HR 600 MG TABCR 1200 MG PO ×2 (09:44→20:46)
[2024-11-20] MEDS: lisinopriL 10 MG TABLET 30 MG PO (09:44)
[2024-11-20] MEDS: APIXABAN 5 MG TABLET PO ×2 (09:45→20:45)
[2024-11-20] MEDS: METOPROLOL TARTRATE 25 MG TABLET PO ×2 (09:45→20:46)
[2024-11-20] MEDS: PANTOPRAZOLE 40 MG TABLET PO (09:45)
[2024-11-20] MEDS: NICOTINE (*PBKC) 21 MG PATCH 1 PATCH TRANSDERM (09:48)
[2024-11-20] MEDS: HYDROcodone/acetaminophen (*CRX) 5-325 MG TABLET 1 TAB PO (09:53)
[2024-11-20 13:02] LABS: Glucose Point of Care 106 mg/dl (65-105)
--- NOTE | 2024-11-20 15:14 | PM.PNCARD ---
Progress Note: A&P Assessment and Plan (1) Atrial fibrillation with RVR: Code(s): I48.91 - Unspecified atrial fibrillation Status: Acute Assessment and Plan: 54-year-old male with hypertension, diabetes mellitus, COPD, chronic respiratory failure on home oxygen, KAL on CPAP, dyslipidemia, morbid obesity, history of heavy tobacco abuse. Patient admitted to the hospital with acute on chronic hypoxemic and hypercarbic respiratory failure. He went into AFib with RVR during hospitalization (paroxysmal versus persistent). Recent LV systolic function on echo reported to be preserved. -Can stop IV Cardizem drip today. Continue Cardizem 60 mg p.o. q.6 hours -Continue metoprolol 25mg b.i.d. -Continue anticoagulation with apixaban 5 mg p.o. b.i.d.. -Continue to monitor on telemetry (2) Acute on chronic respiratory failure with hypoxia and hypercapnia: Code(s): J96.21 - Acute and chronic respiratory failure with hypoxia; J96.22 - Acute and chronic respiratory failure with hypercapnia Status: Acute Assessment and Plan: -Supplemental oxygen, bronchodilators-management as per primary team and pulmonology -Patient has history of heavy tobacco abuse but reports that he has quit tobacco. He was advised to continue to abstain from smoking (3) COPD exacerbation: Code(s): J44.1 - Chronic obstructive pulmonary disease with (acute) exacerbation Status: Acute Assessment and Plan: -Management as per primary team (4) KAL (obstructive sleep apnea): Code(s): G47.33 - Obstructive sleep apnea (adult) (pediatric) Status: Acute Assessment and Plan: -Supplemental oxygen Subjective Date/time seen: 11/20/24 15:14 Interval history: Reason for the encounter: AFib with RVR Relevant history: 54-year-old male with hypertension, diabetes mellitus, COPD, chronic respiratory failure on home oxygen, KAL on CPAP, dyslipidemia, morbid obesity, history of heavy tobacco abuse was admitted to the hospital with acute on chronic hypoxemic and hypercarbic respiratory failure. He went into AFib with RVR during hospitalization (paroxysmal versus persistent). Recent LV systolic function on echo reported to be preserved. Interval history: Patient had AFib with RVR when the rate of Cardizem drip was reduced from 15 mg/hour to 5 mg/hour last night. Cardizem drip was then increased back up to 15 mg/hour. With p.o. Cardizem 60 mg q.6 hours, heart rates were better controlled to the 70s to 100s range. Review of Systems Review of Systems: General: Negative for fever, chills, fatigue Psychological: Negative for anxiety, depression Ophthalmic: negative for loss of vision ENT: Negative for epistaxis, headaches Allergy and immunology: Negative for hives, nasal congestion Hematologic and lymphatic: Negative for overt bleeding problems Endocrine: Negative for hot flashes, palpitations Respiratory: Positive for cough and worsening dyspnea Cardiovascular: Negative for chest pain, positive for worsening dyspnea Gastrointestinal: Negative for abdominal pain, nausea, vomiting, hematochezia Musculoskeletal: Negative for myalgia, joint pains Neurological: Negative for weakness Dermatological: Negative for rash, skin discoloration Exam Narrative: PHYSICAL EXAMINATION: GENERAL: Morbidly obese male, on supplemental oxygen; no acute distress MENTAL STATUS: affect appropriate to mood EYES: Extraocular movements intact, no pallor EARS: External ears appear normal, hearing grossly normal NOSE: Normal and patent, no discharge MOUTH: Mucous membranes moist, tongue normal NECK: Supple, JVP not appreciable, thick neck CHEST: Good respiratory effort, clear to auscultation HEART: Normal rate, irregularly irregular rhythm ABDOMEN: Soft, nontender NEUROLOGICAL: Alert, oriented, normal speech, no gross motor deficits MUSCULOSKELETAL: No major deformity, no amputation EXTREMITIES: Mild pedal edema, no clubbing, no cyanosis SKIN: no rash on the exposed area, no cyanosis PSYCHIATRIC: Normal mood, appropriate affect Objective Data Vital Signs Vital Signs: Vital Signs - 24 hr 11/19/24 15:20 11/19/24 16:00 11/19/24 18:00 Temperature 36.7 C Pulse Rate 81 83 85 Respiratory Rate 18 Blood Pressure 119/61 Pulse Oximetry 94 Oxygen Delivery Oxygen Flow Rate 11/19/24 18:00 11/19/24 20:00 11/19/24 20:00 Temperature 36.6 C 36.7 C Pulse Rate 82 99 82 Respiratory Rate 20 20 Blood Pressure 110/63 107/56 L Pulse Oximetry 95 93 Oxygen Delivery Oxygen Flow Rate 11/19/24 20:00 11/19/24 20:25 11/19/24 20:25 Temperature Pulse Rate 99 99 Respiratory Rate Blood Pressure 107/56 L 107/56 L Pulse Oximetry 96 Oxygen Delivery High Flow Nasal Cannula Oxygen Flow Rate 6 11/19/24 20:28 11/19/24 20:37 11/19/24 20:37 Temperature Pulse Rate 99 86 Respiratory Rate 20 Blood Pressure Pulse Oximetry 96 Oxygen Delivery High Flow Nasal Cannula Oxygen Flow Rate 6 11/19/24 20:43 11/19/24 22:00 11/19/24 22:00 Temperature Pulse Rate 90 101 H 101 H Respiratory Rate 20 Blood Pressure 120/66 120/66 Pulse Oximetry Oxygen Delivery Oxygen Flow Rate 11/19/24 22:00 11/20/24 00:00 11/20/24 00:00 Temperature 36.7 C Pulse Rate 96 81 81 Respiratory Rate 20 Blood Pressure 113/61 Pulse Oximetry 98 Oxygen Delivery Oxygen Flow Rate 11/20/24 00:00 11/20/24 00:00 11/20/24 02:00 Temperature Pulse Rate 81 80 Respiratory Rate Blood Pressure 113/61 Pulse Oximetry 96 Oxygen Delivery BiPAP Oxygen Flow Rate 11/20/24 02:00 11/20/24 02:00 11/20/24 02:37 Temperature Pulse Rate 80 80 95 Respiratory Rate 17 Blood Pressure 110/61 110/61 Pulse Oximetry Oxygen Delivery Oxygen Flow Rate 11/20/24 02:40 11/20/24 02:42 11/20/24 04:00 Temperature 36.7 C Pulse Rate 95 89 80 Respiratory Rate 17 21 H 20 Blood Pressure 112/63 Pulse Oximetry 94 99 Oxygen Delivery Oxygen Flow Rate 11/20/24 04:00 11/20/24 04:00 11/20/24 04:12 Temperature Pulse Rate 97 80 Respiratory Rate Blood Pressure 112/63 Pulse Oximetry 99 Oxygen Delivery BiPAP Oxygen Flow Rate 11/20/24 04:12 11/20/24 06:00 11/20/24 06:00 Temperature Pulse Rate 80 80 80 Respiratory Rate Blood Pressure 112/63 117/65 Pulse Oximetry Oxygen Delivery Oxygen Flow Rate 11/20/24 06:00 11/20/24 07:33 11/20/24 08:00 Temperature 36.5 C Pulse Rate 80 81 Respiratory Rate 18 Blood Pressure 117/65 137/88 Pulse Oximetry 95 95 Oxygen Delivery High Flow Nasal Cannula Oxygen Flow Rate 6 11/20/24 08:00 11/20/24 08:00 11/20/24 08:00 Temperature Pulse Rate 83 83 Respiratory Rate Blood Pressure 137/88 Pulse Oximetry 97 Oxygen Delivery High Flow Nasal Cannula Oxygen Flow Rate 6 11/20/24 08:35 11/20/24 08:35 11/20/24 08:54 Temperature Pulse Rate 84 81 Respiratory Rate 20 20 Blood Pressure Pulse Oximetry 94 Oxygen Delivery High Flow Nasal Cannula Oxygen Flow Rate 6 11/20/24 09:45 11/20/24 10:00 11/20/24 10:00 Temperature Pulse Rate 80 77 82 Respiratory Rate 22 H Blood Pressure 121/60 121/60 Pulse Oximetry 97 Oxygen Delivery Oxygen Flow Rate 11/20/24 10:00 11/20/24 10:53 11/20/24 11:38 Temperature Pulse Rate 82 80 80 Respiratory Rate Blood Pressure Pulse Oximetry Oxygen Delivery Oxygen Flow Rate 11/20/24 11:46 11/20/24 12:00 11/20/24 12:00 Temperature 36.6 C Pulse Rate 80 86 80 Respiratory Rate 22 H Blood Pressure 126/74 126/74 Pulse Oximetry 94 Oxygen Delivery Oxygen Flow Rate 11/20/24 12:00 11/20/24 13:24 11/20/24 13:24 Temperature Pulse Rate 80 Respiratory Rate 20 Blood Pressure Pulse Oximetry 93 96 Oxygen Delivery High Flow Nasal Cannula High Flow Nasal Cannula Oxygen Flow Rate 4 5 11/20/24 13:35 11/20/24 14:00 11/20/24 14:00 Temperature 36.6 C Pulse Rate 83 80 86 Respiratory Rate 20 18 Blood Pressure 115/86 115/86 Pulse Oximetry 92 Oxygen Delivery Oxygen Flow Rate 11/20/24 14:00 11/20/24 14:05 11/20/24 14:30 Temperature Pulse Rate 86 78 Respiratory Rate Blood Pressure Pulse Oximetry 93 Oxygen Delivery High Flow Nasal Cannula Oxygen Flow Rate 4 Intake/Output Intake/Output: Intake & Output 11/17/24 11/18/24 11/19/24 11/20/24 23:59 23:59 23:59 23:59 Intake Total 4226.6 3373.5 2810.9 1319.3 Output Total 3125 2050 4910 2095 Balance 1101.6 1323.5 -2099.1 -775.7 Meds/Results Medications: Active Medications Generic Name Dose Route Start Last Admin Trade Name Freq PRN Reason Stop Dose Admin Acetaminophen 650 mg 11/13/24 16:47 11/17/24 15:11 Acetaminophen 325 Mg Tablet PO 650 mg Q4H PRN Administration Mild Pain (1-3) or Fever Hydrocodone Bitart/Acetaminophen 1 tab 11/14/24 20:51 11/20/24 09:53 Hydrocodone/Acetaminophen (*Crx) 5-325 Mg Tablet PO 1 tab Q8H PRN Administration Pain Acetylcysteine 200 mg 11/17/24 14:00 11/20/24 13:23 Acetylcysteine 20% Inhal Soln 800 Mg/4 Ml Vial INHALATION 200 mg Q6HRT SASHA Administration Albuterol 2.5 mg 11/14/24 10:29 Albuterol Sulfate Neb 2.5 Mg/3 Ml Inh INHALATION Q4HRT PRN Shortness Of Breath Apixaban 5 mg 11/16/24 21:00 11/20/24 09:45 Apixaban 5 Mg Tablet PO 5 mg Q12HR SASHA Administration Atorvastatin Calcium 80 mg 11/14/24 21:00 11/19/24 20:27 Atorvastatin 40 Mg Tablet PO 80 mg HS SASHA Administration Dextrose 12.5 gm 11/14/24 20:53 Dextrose 50% 25 Gm/50 Ml Syringe IV PUSH PRN PRN Hypoglycemia Protocol Diltiazem HCl 60 mg 11/19/24 12:55 11/20/24 11:39 Diltiazem Hcl 60 Mg Tablet PO 60 mg Q6HR SASHA Administration Glucagon 1 mg 11/14/24 20:53 Glucagon For Inj 1 Mg Vial IM PRN PRN Hypoglycemia Protocol Glucose 15 gm 11/14/24 20:53 Glucose Oral Gel 15 Gm Of Glucse In 37.5 Gm Tube PO PRN PRN Hypoglycemia Protocol Guaifenesin 1,200 mg 11/16/24 21:00 11/20/24 09:44 Guaifenesin 12 Hr 600 Mg Tabcr PO 1,200 mg Q12HR SASHA Administration Dextrose 1,000 mls @ 100 mls/hr 11/14/24 20:53 Dextrose 5% 1,000 Ml IVPB PRN PRN Hypoglycemia Protocol Diltiazem HCl 100 mg in 100 mls @ 5 mls/hr 11/16/24 08:10 11/20/24 14:30 Cardizem 100 Mg/100 Ml IV CONT 5 mg/hr .Q20H SASHA 5 mls/hr Infusion 5 MG/HR Insulin Aspart 4 - 8 units 11/15/24 08:00 11/20/24 11:50 Insulin Aspart (*Bkc) 100 Units/Ml SUB-Q Not Given TIDWM [facility] Protocol Insulin Aspart 10 units 11/16/24 17:00 11/20/24 11:49 Insulin Aspart (*Bkc) 100 Units/Ml SUB-Q 10 units TIDWM SASHA Administration Insulin Glargine 18 units 11/16/24 16:45 11/20/24 04:11 Insulin Glargine (*Bkc) 100 Units/Ml SUB-Q 18 units Q12H SASHA Administration Ipratropium [place] 0.5 mg 11/16/24 02:00 11/20/24 13:23 Ipratropium Br 0.02% Inh Soln 0.5 Mg/2.5 Ml Vial INHALATION 0.5 mg Q6HRT SASHA Administration Levalbuterol HCl 1.25 mg 11/20/24 09:37 Levalbuterol Neb 1.25 Mg/3 Ml INHALATION Q6HRT PRN Wheezing Levofloxacin 750 mg 11/19/24 21:00 11/19/24 20:27 Levofloxacin 750 Mg Tablet PO 11/21/24 21:01 750 mg QHS SASHA Administration Lisinopril 30 mg 11/15/24 09:00 11/20/24 09:44 Lisinopril 10 Mg Tablet PO 30 mg DAILY SASHA Administration Metoprolol Tartrate 25 mg 11/18/24 21:00 11/20/24 09:45 Metoprolol Tartrate 25 Mg Tablet PO 25 mg Q12HR SASHA Administration Nicotine 1 patch 11/15/24 14:45 11/20/24 09:48 Nicotine (*Pbkc) 21 Mg Patch TRANSDERM 1 patch DAILY [facility] Administration Ondansetron HCl 4 mg 11/13/24 16:47 Ondansetron Inj 4 Mg/2 Ml Vial IV PUSH Q4H PRN Nausea Pantoprazole Sodium 40 mg 11/15/24 09:00 11/20/24 09:45 Pantoprazole 40 Mg Tablet PO 40 mg QAM SASHA Administration Fluticasone/Salmeterol 2 puff 11/14/24 20:00 11/20/24 08:34 Fluticasone/Salmeterol 115-21 Mcg Inhaler 1 Puff INHALATION 2 puff Q12HRT SASHA Administration Umeclidinium [place] 1 puff 11/15/24 08:00 11/20/24 08:34 Umeclidinium [place] 62.5 Mcg Ellipta INHALATION 1 puff DAILYRT SASHA Administration Radiology Results: ITS Impressions Chest CTA 11/16/24 11:31 IMPRESSION: 1. No pulmonary embolism. 2. No significant change in a 2.5 x 1.7 cm nodule with lobular margins and some central cavitation in the superior segment of the right lower lobe which could be infectious, inflammatory or malignant in etiology. Recommend routine CT-guided biopsy. 3. Mild emphysema. 4. Scattered bronchial mucous plugging in the bilateral lower lobes consistent with bronchitis with dependent consolidation in the dependent aspect of the lower lobes and favor secondary atelectasis over pneumonia. 5. 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 Chest X-Ray 11/18/24 06:51 Impression: Discoid left basilar atelectasis, less likely pneumonia. Right lung clear. Labs Labs: Laboratory Results - last 24 hr 11/19/24 11/19/24 11/20/24 16:50 20:24 04:09 WBC RBC Hgb Hct MCV MCH MCHC RDW Plt Count MPV Immature Gran % (Auto) Neut % (Auto) Lymph % (Auto) [place] % (Auto) Eos % (Auto) Baso % (Auto) Lymph # (Auto) [place] # (Auto) Eos # (Auto) Baso # (Auto) Abs Immat Gran (auto) Absolute Neuts (auto) Absolute Nucleated RBC Nucleated RBC % Sodium Potassium Chloride Carbon Dioxide Anion Gap BUN Creatinine Estim Creat Clear Calc Estimated GFR Glucose POC Capillary Glucose 303 H 187 H 153 H Calcium Magnesium Total Bilirubin AST ALT Alkaline Phosphatase Total Protein Albumin 11/20/24 11/20/24 11/20/24 04:48 07:45 11:48 WBC 11.4 H RBC 4.91 Hgb 14.8 Hct 46.0 MCV 93.7 MCH 30.1 MCHC 32.2 RDW 15.1 H Plt Count 234 MPV 10.9 H Immature Gran % (Auto) 2.0 H Neut % (Auto) 70.3 Lymph % (Auto) 17.2 L [place] % (Auto) 9.3 H Eos % (Auto) 0.8 Baso % (Auto) 0.4 Lymph # (Auto) 1.96 [place] # (Auto) 1.1 H Eos # (Auto) 0.1 Baso # (Auto) 0.1 Abs Immat Gran (auto) 0.23 H Absolute Neuts (auto) 8.0 H Absolute Nucleated RBC 0.000 Nucleated RBC % 0.0 Sodium 133 L Potassium 4.1 Chloride 98 Carbon Dioxide 30 Anion Gap 5 BUN 36 H Creatinine 0.85 Estim Creat Clear Calc 159 Estimated GFR > 60 Glucose 139 H POC Capillary Glucose 139 H 106 H Calcium 8.2 L Magnesium 2.1 Total Bilirubin 0.8 AST 23 ALT 30 Alkaline Phosphatase 70 Total Protein 6.0 L Albumin 3.0 L
[2024-11-20 16:01] LABS: Glucose Point of Care 264 mg/dl (65-105)
--- NOTE | 2024-11-20 16:58 | PM.IMPN ---
Progress Note: A&P Assessment and Plan (1) Acute respiratory failure with hypoxia and hypercapnia: Code(s): J96.01 - Acute respiratory failure with hypoxia; J96.02 - Acute respiratory failure with hypercapnia Status: Acute (2) COPD exacerbation: Code(s): J44.1 - Chronic obstructive pulmonary disease with (acute) exacerbation Status: Acute (3) Hypertension: Code(s): I10 - Essential (primary) hypertension Status: Acute (4) Hyperlipidemia: Code(s): E78.5 - Hyperlipidemia, unspecified Status: Acute (5) Obstructive sleep apnea: Code(s): G47.33 - Obstructive sleep apnea (adult) (pediatric) Status: Acute (6) Tobacco use: Code(s): Z72.0 - Tobacco use Status: Acute Plan The patient presented to the emergency department for evaluation of increasing cough and shortness of breath the last couple of days with some confusion this morning COPD exacerbation Patient has history of COPD, patient has worsening shortness breath and productive cough Continue scheduled DuoNeb, start albuterol nebulizer Q 4 p.r.n. albuterol has been switched to leave albuterol due to AFib with RVR on Solu-Medrol 60 mg q.6 hours scheduled. add Symbicort Continue Levaquin IV, and bronchodilators Decrease methylprednisolone to 40 mg q.8 hours IV no switched to prednisone Nasal MRSA is negative. Stop vancomycin. Continue on levofloxacin Sputum culture pending Acute on chronic respiratory failure Patient has history of chronic hypoxemia Now patient is on high-flow oxygen via nasal cannular Follow-up ABG showed hypercapnia, hypoxemic respiratory failure, pH 7.34, pCO2 64.8 PaO2 continue improved to 85.2 11/14 CTA reviewed Pulmonary consultation Taper oxygen as tolerated. Uncontrolled type 2 diabetes Patient is not on medication at home A1c 8.0 Started on Lantus 24 unit daily, aspart 6 unit a.c., continue sliding scale Adjust insulin Smoking cessation is imperative and was discussed. Nicotine patch ordered per patient request. Blood pressures are stable. Continue home medication AFib with RVR new diagnosis. seen by dredge boat engineer, was on Cardizem drip until today and was transition to Cardizem 60 PO q6 and BB now rate is better control, Echo on August 2024 with EF 55-60% no significant valvular disease. TSH normal. TSH in [place] 0.09. patient also has acute on chronic respiratory failure with hypoxemia and hypercapnia patient is seen by donkey engine firer/fireman and being treated with non invensive ventilator and being titrated seen by his donkey engine firer/fireman his symptoms are improving. Rheumatoid arthritis takes diclofenac not on any immunomodulators RF 16.9 follow-up as an outpatient basis DVT prophylaxis heparin drip now started on eliquis Code status full code Subjective Date/time seen: 11/20/24 16:58 Interval history: AFib with RVR new diagnosis. seen by dredge boat engineer, was on Cardizem drip until today and was transition to Cardizem 60 PO q6 and BB now rate is better control, Echo on August 2024 with EF 55-60% no significant valvular disease. TSH normal. TSH in August. patient also has acute on chronic respiratory failure with hypoxemia and hypercapnia patient is seen by donkey engine firer/fireman and being treated with non invensive ventilator and being titrated seen by his donkey engine firer/fireman his symptoms are improving. Review of Systems Review of Systems: 12 systems were reviewed and are negative except for as per HPI. All systems reviewed & are unremarkable except as noted in HPI and below Exam Narrative: Morbidly obese Patient is comfortable, NAD HEENT: eyes are clear and none icteric LUNGS: Bilateral fair entry with rhonchi and wheezing HEART: Irregularly irregular. ABD: BS+, Soft and nontender Lower extremities: no edema SKIN: nonjaundiced Neuro: grossly intact. Objective Data Vital Signs Vital Signs: Vital Signs - 24 hr 11/19/24 18:00 11/19/24 18:00 11/19/24 20:00 Temperature 36.6 C 36.7 C Pulse Rate 85 82 99 Respiratory Rate 20 20 Blood Pressure 110/63 107/56 L Pulse Oximetry 95 93 Oxygen Delivery Oxygen Flow Rate 11/19/24 20:00 11/19/24 20:00 11/19/24 20:25 Temperature Pulse Rate 82 99 Respiratory Rate Blood Pressure 107/56 L Pulse Oximetry 96 Oxygen Delivery High Flow Nasal Cannula Oxygen Flow Rate 6 11/19/24 20:25 11/19/24 20:28 11/19/24 20:37 Temperature Pulse Rate 99 99 Respiratory Rate Blood Pressure 107/56 L Pulse Oximetry 96 Oxygen Delivery High Flow Nasal Cannula Oxygen Flow Rate 6 11/19/24 20:37 11/19/24 20:43 11/19/24 22:00 Temperature Pulse Rate 86 90 101 H Respiratory Rate 20 20 Blood Pressure 120/66 Pulse Oximetry Oxygen Delivery Oxygen Flow Rate 11/19/24 22:00 11/19/24 22:00 11/20/24 00:00 Temperature 36.7 C Pulse Rate 101 H 96 81 Respiratory Rate 20 Blood Pressure 120/66 113/61 Pulse Oximetry 98 Oxygen Delivery Oxygen Flow Rate 11/20/24 00:00 11/20/24 00:00 11/20/24 00:00 Temperature Pulse Rate 81 81 Respiratory Rate Blood Pressure 113/61 Pulse Oximetry 96 Oxygen Delivery BiPAP Oxygen Flow Rate 11/20/24 02:00 11/20/24 02:00 11/20/24 02:00 Temperature Pulse Rate 80 80 80 Respiratory Rate Blood Pressure 110/61 110/61 Pulse Oximetry Oxygen Delivery Oxygen Flow Rate 11/20/24 02:37 11/20/24 02:40 11/20/24 02:42 Temperature Pulse Rate 95 95 89 Respiratory Rate 17 17 21 H Blood Pressure Pulse Oximetry 94 Oxygen Delivery Oxygen Flow Rate 11/20/24 04:00 11/20/24 04:00 11/20/24 04:00 Temperature 36.7 C Pulse Rate 80 97 Respiratory Rate 20 Blood Pressure 112/63 Pulse Oximetry 99 99 Oxygen Delivery BiPAP Oxygen Flow Rate 11/20/24 04:12 11/20/24 04:12 11/20/24 06:00 Temperature Pulse Rate 80 80 80 Respiratory Rate Blood Pressure 112/63 112/63 117/65 Pulse Oximetry Oxygen Delivery Oxygen Flow Rate 11/20/24 06:00 11/20/24 06:00 11/20/24 07:33 Temperature Pulse Rate 80 80 Respiratory Rate Blood Pressure 117/65 Pulse Oximetry 95 Oxygen Delivery High Flow Nasal Cannula Oxygen Flow Rate 6 11/20/24 08:00 11/20/24 08:00 11/20/24 08:00 Temperature 36.5 C Pulse Rate 81 83 Respiratory Rate 18 Blood Pressure 137/88 137/88 Pulse Oximetry 95 97 Oxygen Delivery High Flow Nasal Cannula Oxygen Flow Rate 6 11/20/24 08:00 11/20/24 08:35 11/20/24 08:35 Temperature Pulse Rate 83 84 Respiratory Rate 20 Blood Pressure Pulse Oximetry 94 Oxygen Delivery High Flow Nasal Cannula Oxygen Flow Rate 6 11/20/24 08:54 11/20/24 09:45 11/20/24 10:00 Temperature Pulse Rate 81 80 77 Respiratory Rate 20 22 H Blood Pressure 121/60 Pulse Oximetry 97 Oxygen Delivery Oxygen Flow Rate 11/20/24 10:00 11/20/24 10:00 11/20/24 10:53 Temperature Pulse Rate 82 82 80 Respiratory Rate Blood Pressure 121/60 Pulse Oximetry Oxygen Delivery Oxygen Flow Rate 11/20/24 11:38 11/20/24 11:46 11/20/24 12:00 Temperature 36.6 C Pulse Rate 80 80 86 Respiratory Rate 22 H Blood Pressure 126/74 126/74 Pulse Oximetry 94 Oxygen Delivery Oxygen Flow Rate 11/20/24 12:00 11/20/24 12:00 11/20/24 13:24 Temperature Pulse Rate 80 Respiratory Rate Blood Pressure Pulse Oximetry 93 96 Oxygen Delivery High Flow Nasal Cannula High Flow Nasal Cannula Oxygen Flow Rate 4 5 11/20/24 13:24 11/20/24 13:35 11/20/24 14:00 Temperature 36.6 C Pulse Rate 80 83 80 Respiratory Rate 20 20 18 Blood Pressure 115/86 Pulse Oximetry 92 Oxygen Delivery Oxygen Flow Rate 11/20/24 14:00 11/20/24 14:00 11/20/24 14:05 Temperature Pulse Rate 86 86 Respiratory Rate Blood Pressure 115/86 Pulse Oximetry 93 Oxygen Delivery High Flow Nasal Cannula Oxygen Flow Rate 4 11/20/24 14:30 11/20/24 16:00 Temperature 36.6 C Pulse Rate 78 80 Respiratory Rate 16 Blood Pressure 106/53 L Pulse Oximetry 93 Oxygen Delivery Oxygen Flow Rate Intake/Output Intake/Output: Intake & Output 11/17/24 11/18/24 11/19/24 11/20/24 23:59 23:59 23:59 23:59 Intake Total 4226.6 3373.5 2810.9 1319.3 Output Total 3125 2050 4910 2095 Balance 1101.6 1323.5 -2099.1 -775.7 Meds/Results Medications: Active Medications Generic Name Dose Route Start Last Admin Trade Name Freq PRN Reason Stop Dose Admin Acetaminophen 650 mg 11/13/24 16:47 11/17/24 15:11 Acetaminophen 325 Mg Tablet PO 650 mg Q4H PRN Administration Mild Pain (1-3) or Fever Hydrocodone Bitart/Acetaminophen 1 tab 11/14/24 20:51 11/20/24 09:53 Hydrocodone/Acetaminophen (*Crx) 5-325 Mg Tablet PO 1 tab Q8H PRN Administration Pain Acetylcysteine 200 mg 11/17/24 14:00 11/20/24 13:23 Acetylcysteine 20% Inhal Soln 800 Mg/4 Ml Vial INHALATION 200 mg Q6HRT SASHA Administration Albuterol 2.5 mg 11/14/24 10:29 Albuterol Sulfate Neb 2.5 Mg/3 Ml Inh INHALATION Q4HRT PRN Shortness Of Breath Apixaban 5 mg 11/16/24 21:00 11/20/24 09:45 Apixaban 5 Mg Tablet PO 5 mg Q12HR SASHA Administration Atorvastatin Calcium 80 mg 11/14/24 21:00 11/19/24 20:27 Atorvastatin 40 Mg Tablet PO 80 mg HS SASHA Administration Dextrose 12.5 gm 11/14/24 20:53 Dextrose 50% 25 Gm/50 Ml Syringe IV PUSH PRN PRN Hypoglycemia Protocol Diltiazem HCl 60 mg 11/19/24 12:55 11/20/24 11:39 Diltiazem Hcl 60 Mg Tablet PO 60 mg Q6HR SASHA Administration Glucagon 1 mg 11/14/24 20:53 Glucagon For Inj 1 Mg Vial IM PRN PRN Hypoglycemia Protocol Glucose 15 gm 11/14/24 20:53 Glucose Oral Gel 15 Gm Of Glucse In 37.5 Gm Tube PO PRN PRN Hypoglycemia Protocol Guaifenesin 1,200 mg 11/16/24 21:00 11/20/24 09:44 Guaifenesin 12 Hr 600 Mg Tabcr PO 1,200 mg Q12HR SASHA Administration Dextrose 1,000 mls @ 100 mls/hr 11/14/24 20:53 Dextrose 5% 1,000 Ml IVPB PRN PRN Hypoglycemia Protocol Insulin Aspart 4 - 8 units 11/15/24 08:00 11/20/24 11:50 Insulin Aspart (*Bkc) 100 Units/Ml SUB-Q Not Given TIDWM [facility] Protocol Insulin Aspart 10 units 11/16/24 17:00 11/20/24 11:49 Insulin Aspart (*Bkc) 100 Units/Ml SUB-Q 10 units TIDWM SASHA Administration Insulin Glargine 18 units 11/16/24 16:45 11/20/24 04:11 Insulin Glargine (*Bkc) 100 Units/Ml SUB-Q 18 units Q12H SASHA Administration Ipratropium [place] 0.5 mg 11/16/24 02:00 11/20/24 13:23 Ipratropium Br 0.02% Inh Soln 0.5 Mg/2.5 Ml Vial INHALATION 0.5 mg Q6HRT SASHA Administration Levalbuterol HCl 1.25 mg 11/20/24 09:37 Levalbuterol Neb 1.25 Mg/3 Ml INHALATION Q6HRT PRN Wheezing Levofloxacin 750 mg 11/19/24 21:00 11/19/24 20:27 Levofloxacin 750 Mg Tablet PO 11/21/24 21:01 750 mg QHS SASHA Administration Lisinopril 30 mg 11/15/24 09:00 11/20/24 09:44 Lisinopril 10 Mg Tablet PO 30 mg DAILY SASHA Administration Metoprolol Tartrate 25 mg 11/18/24 21:00 11/20/24 09:45 Metoprolol Tartrate 25 Mg Tablet PO 25 mg Q12HR SASHA Administration Nicotine 1 patch 11/15/24 14:45 11/20/24 09:48 Nicotine (*Pbkc) 21 Mg Patch TRANSDERM 1 patch DAILY SASHA Administration Ondansetron HCl 4 mg 11/13/24 16:47 Ondansetron Inj 4 Mg/2 Ml Vial IV PUSH Q4H PRN Nausea Pantoprazole Sodium 40 mg 11/15/24 09:00 11/20/24 09:45 Pantoprazole 40 Mg Tablet PO 40 mg QAM SASHA Administration Fluticasone/Salmeterol 2 puff 11/14/24 20:00 11/20/24 08:34 Fluticasone/Salmeterol 115-21 Mcg Inhaler 1 Puff INHALATION 2 puff Q12HRT SASHA Administration Umeclidinium [place] 1 puff 11/15/24 08:00 11/20/24 08:34 Umeclidinium [place] 62.5 Mcg Ellipta INHALATION 1 puff DAILYRT SASHA Administration Radiology Results: ITS Impressions Chest CTA 11/16/24 11:31 IMPRESSION: 1. No pulmonary embolism. 2. No significant change in a 2.5 x 1.7 cm nodule with lobular margins and some central cavitation in the superior segment of the right lower lobe which could be infectious, inflammatory or malignant in etiology. Recommend routine CT-guided biopsy. 3. Mild emphysema. 4. Scattered bronchial mucous plugging in the bilateral lower lobes consistent with bronchitis with dependent consolidation in the dependent aspect of the lower lobes and favor secondary atelectasis over pneumonia. 5. 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 Chest X-Ray 11/18/24 06:51 Impression: Discoid left basilar atelectasis, less likely pneumonia. Right lung clear. Labs Labs: Laboratory Results - last 24 hr 11/19/24 11/20/24 11/20/24 20:24 04:09 04:48 WBC 11.4 H RBC 4.91 Hgb 14.8 Hct 46.0 MCV 93.7 MCH 30.1 MCHC 32.2 RDW 15.1 H Plt Count 234 MPV 10.9 H Immature Gran % (Auto) 2.0 H Neut % (Auto) 70.3 Lymph % (Auto) 17.2 L [place] % (Auto) 9.3 H Eos % (Auto) 0.8 Baso % (Auto) 0.4 Lymph # (Auto) 1.96 [place] # (Auto) 1.1 H Eos # (Auto) 0.1 Baso # (Auto) 0.1 Abs Immat Gran (auto) 0.23 H Absolute Neuts (auto) 8.0 H Absolute Nucleated RBC 0.000 Nucleated RBC % 0.0 Sodium 133 L Potassium 4.1 Chloride 98 Carbon Dioxide 30 Anion Gap 5 BUN 36 H Creatinine 0.85 Estim Creat Clear Calc 159 Estimated GFR > 60 Glucose 139 H POC Capillary Glucose 187 H 153 H Calcium 8.2 L Magnesium 2.1 Total Bilirubin 0.8 AST 23 ALT 30 Alkaline Phosphatase 70 Total Protein 6.0 L Albumin 3.0 L 11/20/24 11/20/24 11/20/24 07:45 11:48 15:39 WBC RBC Hgb Hct MCV MCH MCHC RDW Plt Count MPV Immature Gran % (Auto) Neut % (Auto) Lymph % (Auto) [place] % (Auto) Eos % (Auto) Baso % (Auto) Lymph # (Auto) [place] # (Auto) Eos # (Auto) Baso # (Auto) Abs Immat Gran (auto) Absolute Neuts (auto) Absolute Nucleated RBC Nucleated RBC % Sodium Potassium Chloride Carbon Dioxide Anion Gap BUN Creatinine Estim Creat Clear Calc Estimated GFR Glucose POC Capillary Glucose 139 H 106 H 264 H Calcium Magnesium Total Bilirubin AST ALT Alkaline Phosphatase Total Protein Albumin Quality VTE Prophylaxis VTE prophylaxis: pharmacologic ordered
[2024-11-20] MEDS: INSULIN ASPART (*BKC) 100 UNITS/ML SUB-Q (18:12)
[2024-11-20 20:35] LABS: Glucose Point of Care 114 mg/dl (65-105)
[2024-11-20] MEDS: ATORVASTATIN 40 MG TABLET 80 MG PO (20:45)
[2024-11-20] MEDS: levoFLOXacin 750 MG TABLET PO (20:46)
[2024-11-21] VITALS (22 sets, daily range): BP systolic 99–131; BP diastolic 51–99; PULSE 59–152; RESP 16–20; TEMP 36.2–36.7; O2SAT 94–98
[2024-11-21] MEDS: dilTIAZem HCL 60 MG TABLET PO ×5 (01:06→22:08)
[2024-11-21] MEDS: HYDROcodone/acetaminophen (*CRX) 5-325 MG TABLET 1 TAB PO (06:07)
[2024-11-21] MEDS: INSULIN GLARGINE (*BKC) 100 UNITS/ML 18 UNITS SUB-Q (06:07)
[2024-11-21 07:11] LABS: Estimated CRCL calculation 169 ml/min; Estimated Glomerular Filt Rate > 60
[2024-11-21] MEDS: UMECLIDINIUM BROMIDE 62.5 MCG ELLIPTA 1 PUFF INHALATION (07:29)
[2024-11-21] MEDS: IPRATROPIUM BR 0.02% INH SOLN 0.5 MG/2.5 ML VIAL INHALATION ×3 (07:30→20:49)
[2024-11-21] MEDS: FLUTICASONE/SALMETEROL 115-21 MCG INHALER 1 PUFF 2 PUFF INHALATION ×2 (07:30→20:55)
[2024-11-21 07:51] LABS: Glucose Point of Care 197 mg/dl (65-105)
[2024-11-21] MEDS: lisinopriL 10 MG TABLET 30 MG PO (09:56)
[2024-11-21] MEDS: APIXABAN 5 MG TABLET PO ×2 (09:56→20:38)
[2024-11-21] MEDS: NICOTINE (*PBKC) 21 MG PATCH 1 PATCH TRANSDERM (09:56)
[2024-11-21] MEDS: METOPROLOL TARTRATE 25 MG TABLET PO ×2 (09:56→20:38)
[2024-11-21] MEDS: PANTOPRAZOLE 40 MG TABLET PO (09:57)
[2024-11-21] MEDS: guaiFENesin 12 HR 600 MG TABCR 1200 MG PO ×2 (09:57→20:41)
[2024-11-21] MEDS: ACETAMINOPHEN 325 MG TABLET 650 MG PO (09:59)
[2024-11-21] MEDS: INSULIN ASPART (*BKC) 100 UNITS/ML 10 UNITS SUB-Q (09:59)
--- NOTE | 2024-11-21 10:00 | PCRCNOTE ---
PAL ([facility]) to set patient up on NIV unit tonight in the hospital.
--- NOTE | 2024-11-21 10:24 | PM.PNPUL ---
Progress Note: A&P Assessment and Plan (1) Obesity hypoventilation syndrome: Code(s): E66.2 - Morbid (severe) obesity with alveolar hypoventilation Status: Acute Assessment and Plan: This 54-year-old man, with chronic hypoxemic and hypercapnic respiratory failure and a similar hospitalization three months ago, is presenting again with acute on chronic hypercapnic respiratory failure. He has responded well to treatment with noninvasive ventilatory support and management for a possible COPD exacerbation, including antibiotics, bronchodilators, and IV steroids. Currently, he is improving and tolerating the AVAPS mode for ventilatory support at night, along with supplemental oxygen via high-flow nasal cannula during the day. On physical examination, he has clear lungs. Based on his history of mild obstructive sleep apnea and significant weight gain over the past 13 years, his chronic hypercapnic hypoxemic respiratory failure is most likely related to untreated obesity hypoventilation. Despite a long history of smoking, his chest CT shows only mild paraseptal emphysema, and given his age, it is highly likely that obesity hypoventilation is the primary cause of his hypercapnic respiratory failure rather than end-stage COPD. No pulmonary function testing is available for review. The patient will benefit from home ventilatory support for obesity hypoventilation syndrome (OHS), having experienced two hospitalizations for acute on chronic hypercapnic respiratory failure over the past three months. While the patient has responded well to the BiPAP machine during these hospitalizations, transitioning to a home ventilator offers more advanced and customizable ventilatory support. Home ventilators can deliver precise tidal volumes and adjust more effectively to the patient's specific needs, optimizing ventilation and improving gas exchange, which is crucial in managing OHS. Importantly, the use of home ventilators can reduce the frequency of hospital admissions and enhance overall health outcomes for patients with severe respiratory failure due to OHS. On physical exam today his lungs were clear with no wheezing. His lower extremity edema overall has decreased. Efforts are currently being made to secure approval from the patient's health insurance for nighttime home ventilatory support. In the interim, the patient will receive a loaner ventilator to use at home until a permanent device is obtained. The patient will undergo testing with the [employer] on the loaner machine [email or web address], and arterial blood gases will be measured tomorrow morning. We anticipate discharging the patient in the morning. (2) Obstructive sleep apnea: Code(s): G47.33 - Obstructive sleep apnea (adult) (pediatric) Status: Acute (3) Hypercapnia: Code(s): R06.89 - Other abnormalities of breathing Status: Acute (4) Acute on chronic respiratory failure with hypoxia and hypercapnia: Code(s): J96.21 - Acute and chronic respiratory failure with hypoxia; J96.22 - Acute and chronic respiratory failure with hypercapnia Status: Acute (5) Acute respiratory failure: Code(s): J96.00 - Acute respiratory failure, unspecified whether with hypoxia or hypercapnia Status: Acute (6) Atrial fibrillation with RVR: Code(s): I48.91 - Unspecified atrial fibrillation Status: Acute (7) Lung nodule: Code(s): R91.1 - Solitary pulmonary nodule Status: Acute Assessment and Plan: A chest CT revealed a nodular opacity measuring 2.5 x 1.7 cm with lobular margins and central cavitation located in the superior segment of the right lower lobe. Compared to the previous chest CT, there has been no significant increase in the size of the nodule. Please refer to the radiology report for further details. The patient will require additional evaluation, possibly including a CT-guided needle aspiration, to be conducted on an outpatient basis. The findings from the chest CT have been discussed with the patient. Subjective Date/time seen: 11/21/24 10:24 Interval history: Patient has no wheezing or change in his shortness of breath. Out of bed to chair daily. Use BiPAP support supplemental oxygen last night. He slept well. Review of Systems Review of Systems: All systems reviewed & are unremarkable except as noted in HPI and below (HPI and below) Exam Narrative: GENERAL APPEARANCE: Well developed, well nourished, alert and cooperative, morbidly obese and appears to be in no acute distress while on supplemental oxygen SKIN: Inspection of the skin reveals no rashes, ulcerations or petechiae. HEENT: Sclerae anicteric and conjunctivae pink and moist. Extraocular movements were intact and pupils were equal, round, and reactive to light. The oral mucosa, hard and soft palate, tongue and posterior pharynx were normal. NECK: Supple. There was no thyroid enlargement, and no tenderness, or masses were felt. CHEST: Normal AP diameter and normal contour without any kyphoscoliosis. LUNGS: Few scattered wheezes otherwise clear lungs CARDIAC: There was a regular rate and rhythm without any murmurs, gallops, rubs. ABDOMEN: Soft and nontender with normal bowel sounds. There was no organomegaly. LYMPH NODES: No lymphadenopathy was appreciated in the neck.. EXTREMITIES: No cyanosis, clubbing; trace pedal edema NEUROLOGIC: Alert and oriented x 3. Normal affect. Objective Data Vital Signs Vital Signs: Vital Signs - 24 hr 11/20/24 10:53 11/20/24 11:38 11/20/24 11:46 Temperature 36.6 C Pulse Rate 80 80 80 Respiratory Rate 22 H Blood Pressure 126/74 Pulse Oximetry 94 Oxygen Delivery Oxygen Flow Rate Fraction of Inspired Oxygen 11/20/24 12:00 11/20/24 12:00 11/20/24 12:00 Temperature Pulse Rate 86 80 Respiratory Rate Blood Pressure 126/74 Pulse Oximetry 93 Oxygen Delivery High Flow Nasal Cannula Oxygen Flow Rate 4 Fraction of Inspired Oxygen 11/20/24 13:24 11/20/24 13:24 11/20/24 13:35 Temperature Pulse Rate 80 83 Respiratory Rate 20 20 Blood Pressure Pulse Oximetry 96 Oxygen Delivery High Flow Nasal Cannula Oxygen Flow Rate 5 Fraction of Inspired Oxygen 11/20/24 14:00 11/20/24 14:00 11/20/24 14:00 Temperature 36.6 C Pulse Rate 80 86 86 Respiratory Rate 18 Blood Pressure 115/86 115/86 Pulse Oximetry 92 Oxygen Delivery Oxygen Flow Rate Fraction of Inspired Oxygen 11/20/24 14:05 11/20/24 14:30 11/20/24 16:00 Temperature 36.6 C Pulse Rate 78 80 Respiratory Rate 16 Blood Pressure 106/53 L Pulse Oximetry 93 93 Oxygen Delivery High Flow Nasal Cannula Oxygen Flow Rate 4 Fraction of Inspired Oxygen 11/20/24 16:00 11/20/24 16:00 11/20/24 16:00 Temperature Pulse Rate 80 79 Respiratory Rate Blood Pressure 106/55 L Pulse Oximetry 93 Oxygen Delivery High Flow Nasal Cannula Oxygen Flow Rate 4 Fraction of Inspired Oxygen 11/20/24 18:00 11/20/24 20:00 11/20/24 20:00 Temperature 36.7 C Pulse Rate 84 85 Respiratory Rate Blood Pressure Pulse Oximetry 94 Oxygen Delivery High Flow Nasal Cannula Oxygen Flow Rate 4 Fraction of Inspired Oxygen 11/20/24 20:00 11/20/24 20:04 11/20/24 20:07 Temperature Pulse Rate 87 85 Respiratory Rate 20 Blood Pressure Pulse Oximetry 95 Oxygen Delivery High Flow Nasal Cannula Oxygen Flow Rate 4 Fraction of Inspired Oxygen 11/20/24 20:37 11/20/24 20:46 11/20/24 22:00 Temperature 36.7 C Pulse Rate 85 84 80 Respiratory Rate 16 Blood Pressure 154/83 H Pulse Oximetry 93 Oxygen Delivery Oxygen Flow Rate Fraction of Inspired Oxygen 11/20/24 22:15 11/20/24 23:56 11/21/24 00:00 Temperature 36.7 C Pulse Rate 89 Respiratory Rate 27 H 16 Blood Pressure 126/66 Pulse Oximetry 95 95 98 Oxygen Delivery BiPAP Oxygen Flow Rate Fraction of Inspired Oxygen 40 11/21/24 00:00 11/21/24 01:30 11/21/24 02:00 Temperature Pulse Rate 81 81 87 Respiratory Rate 17 Blood Pressure Pulse Oximetry 96 Oxygen Delivery Oxygen Flow Rate Fraction of Inspired Oxygen 11/21/24 04:00 11/21/24 04:00 11/21/24 04:31 Temperature 36.7 C Pulse Rate 92 105 H Respiratory Rate 16 Blood Pressure Pulse Oximetry 95 96 Oxygen Delivery BiPAP Oxygen Flow Rate Fraction of Inspired Oxygen 40 11/21/24 06:00 11/21/24 06:37 11/21/24 07:30 Temperature 36.7 C Pulse Rate 89 102 H Respiratory Rate 16 Blood Pressure 105/58 L Pulse Oximetry 94 97 Oxygen Delivery High Flow Nasal Cannula Oxygen Flow Rate 4 Fraction of Inspired Oxygen 11/21/24 07:30 11/21/24 08:00 11/21/24 09:56 Temperature 36.6 C Pulse Rate 107 H 82 121 H Respiratory Rate 18 20 Blood Pressure 99/51 L Pulse Oximetry 96 Oxygen Delivery Oxygen Flow Rate Fraction of Inspired Oxygen Intake/Output Intake/Output: Intake & Output 11/18/24 11/19/24 11/20/24 11/21/24 23:59 23:59 23:59 23:59 Intake Total 3373.5 2810.9 1566.8 990 Output Total 2050 4910 2470 1300 Balance 1323.5 -2099.1 -903.2 -310 Meds/Results Medications: Active Medications Generic Name Dose Route Start Last Admin Trade Name Freq PRN Reason Stop Dose Admin Acetaminophen 650 mg 11/13/24 16:47 11/21/24 09:59 Acetaminophen 325 Mg Tablet PO 650 mg Q4H PRN Administration Mild Pain (1-3) or Fever Hydrocodone Bitart/Acetaminophen 1 tab 11/14/24 20:51 11/21/24 06:07 Hydrocodone/Acetaminophen (*Crx) 5-325 Mg Tablet PO 1 tab Q8H PRN Administration Pain Acetylcysteine 200 mg 11/17/24 14:00 11/21/24 07:30 Acetylcysteine 20% Inhal Soln 800 Mg/4 Ml Vial INHALATION Not Given Q6HRT SASHA Albuterol 2.5 mg 11/14/24 10:29 Albuterol Sulfate Neb 2.5 Mg/3 Ml Inh INHALATION Q4HRT PRN Shortness Of Breath Apixaban 5 mg 11/16/24 21:00 11/21/24 09:56 Apixaban 5 Mg Tablet PO 5 mg Q12HR SASHA Administration Atorvastatin Calcium 80 mg 11/14/24 21:00 11/20/24 20:45 Atorvastatin 40 Mg Tablet PO 80 mg HS SASHA Administration Dextrose 12.5 gm 11/14/24 20:53 Dextrose 50% 25 Gm/50 Ml Syringe IV PUSH PRN PRN Hypoglycemia Protocol Diltiazem HCl 60 mg 11/19/24 12:55 11/21/24 06:07 Diltiazem Hcl 60 Mg Tablet PO 60 mg Q6HR SASHA Administration Glucagon 1 mg 11/14/24 20:53 Glucagon For Inj 1 Mg Vial IM PRN PRN Hypoglycemia Protocol Glucose 15 gm 11/14/24 20:53 Glucose Oral Gel 15 Gm Of Glucse In 37.5 Gm Tube PO PRN PRN Hypoglycemia Protocol Guaifenesin 1,200 mg 11/16/24 21:00 11/21/24 09:57 Guaifenesin 12 Hr 600 Mg Tabcr PO 1,200 mg Q12HR SASHA Administration Dextrose 1,000 mls @ 100 mls/hr 11/14/24 20:53 Dextrose 5% 1,000 Ml IVPB PRN PRN Hypoglycemia Protocol Insulin Aspart 4 - 8 units 11/15/24 08:00 11/21/24 09:57 Insulin Aspart (*Bkc) 100 Units/Ml SUB-Q Not Given TIDWM [facility] Protocol Insulin Aspart 10 units 11/16/24 17:00 11/21/24 09:59 Insulin Aspart (*Bkc) 100 Units/Ml SUB-Q 10 units TIDWM SASHA Administration Insulin Glargine 18 units 11/16/24 16:45 11/21/24 06:07 Insulin Glargine (*Bkc) 100 Units/Ml SUB-Q 18 units Q12H SASHA Administration Ipratropium [place] 0.5 mg 11/16/24 02:00 11/21/24 07:30 Ipratropium Br 0.02% Inh Soln 0.5 Mg/2.5 Ml Vial INHALATION 0.5 mg Q6HRT SASHA Administration Levalbuterol HCl 1.25 mg 11/20/24 09:37 Levalbuterol Neb 1.25 Mg/3 Ml INHALATION Q6HRT PRN Wheezing Levofloxacin 750 mg 11/19/24 21:00 11/20/24 20:46 Levofloxacin 750 Mg Tablet PO 11/21/24 21:01 750 mg QHS SASHA Administration Lisinopril 30 mg 11/15/24 09:00 11/21/24 09:56 Lisinopril 10 Mg Tablet PO 30 mg DAILY SASHA Administration Metoprolol Tartrate 25 mg 11/18/24 21:00 11/21/24 09:56 Metoprolol Tartrate 25 Mg Tablet PO 25 mg Q12HR SASHA Administration Nicotine 1 patch 11/15/24 14:45 11/21/24 09:56 Nicotine (*Pbkc) 21 Mg Patch TRANSDERM 1 patch DAILY [facility] Administration Ondansetron HCl 4 mg 11/13/24 16:47 Ondansetron Inj 4 Mg/2 Ml Vial IV PUSH Q4H PRN Nausea Pantoprazole Sodium 40 mg 11/15/24 09:00 11/21/24 09:57 Pantoprazole 40 Mg Tablet PO 40 mg QAM SASHA Administration Fluticasone/Salmeterol 2 puff 11/14/24 20:00 11/21/24 07:30 Fluticasone/Salmeterol 115-21 Mcg Inhaler 1 Puff INHALATION 2 puff Q12HRT SASHA Administration Umeclidinium [place] 1 puff 11/15/24 08:00 11/21/24 07:29 Umeclidinium [place] 62.5 Mcg Ellipta INHALATION 1 puff DAILYRT SASHA Administration Radiology Results: ITS Impressions Chest CTA 11/16/24 11:31 IMPRESSION: 1. No pulmonary embolism. 2. No significant change in a 2.5 x 1.7 cm nodule with lobular margins and some central cavitation in the superior segment of the right lower lobe which could be infectious, inflammatory or malignant in etiology. Recommend routine CT-guided biopsy. 3. Mild emphysema. 4. Scattered bronchial mucous plugging in the bilateral lower lobes consistent with bronchitis with dependent consolidation in the dependent aspect of the lower lobes and favor secondary atelectasis over pneumonia. 5. 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 Chest X-Ray 11/18/24 06:51 Impression: Discoid left basilar atelectasis, less likely pneumonia. Right lung clear. Labs Labs: Laboratory Results - last 24 hr 11/20/24 11/20/24 11/20/24 11:48 15:39 20:12 Creatinine Estim Creat Clear Calc Estimated GFR POC Capillary Glucose 106 H 264 H 114 H 11/21/24 11/21/24 06:48 07:32 Creatinine 0.80 Estim Creat Clear Calc 169 Estimated GFR > 60 POC Capillary Glucose 197 H
--- NOTE | 2024-11-21 13:51 | PC.NURSE ---
This patient, Ronnie Tadeo, was transferred to [facility]() on 11/21/24 at 1351. Personal belongings sent with patient. Report given to CHRISTEN Morales. Appropriate documentation sent with patient.
--- NOTE | 2024-11-21 14:27 | PCNWS ---
Weekly nutritional screen. Patient is tolerating current diet with adequate intake, 100% on heart healthy diet. Pt refused a diabetic diet. No weight loss reported. No nutritional needs at this time.
--- NOTE | 2024-11-21 15:15 | PM.IMPN ---
Progress Note: A&P Assessment and Plan (1) Acute respiratory failure with hypoxia and hypercapnia: Code(s): J96.01 - Acute respiratory failure with hypoxia; J96.02 - Acute respiratory failure with hypercapnia Status: Acute (2) COPD exacerbation: Code(s): J44.1 - Chronic obstructive pulmonary disease with (acute) exacerbation Status: Acute (3) Hypertension: Code(s): I10 - Essential (primary) hypertension Status: Acute (4) Hyperlipidemia: Code(s): E78.5 - Hyperlipidemia, unspecified Status: Acute (5) Obstructive sleep apnea: Code(s): G47.33 - Obstructive sleep apnea (adult) (pediatric) Status: Acute (6) Tobacco use: Code(s): Z72.0 - Tobacco use Status: Acute Plan The patient presented to the emergency department for evaluation of increasing cough and shortness of breath the last couple of days with some confusion this morning COPD exacerbation Patient has history of COPD, patient has worsening shortness breath and productive cough Continue scheduled DuoNeb, start albuterol nebulizer Q 4 p.r.n. albuterol has been switched to leave albuterol due to AFib with RVR on Solu-Medrol 60 mg q.6 hours scheduled. add Symbicort Continue Levaquin IV, and bronchodilators Decrease methylprednisolone to 40 mg q.8 hours IV no switched to prednisone Nasal MRSA is negative. Stop vancomycin. Continue on levofloxacin Sputum culture pending Acute on chronic respiratory failure Patient has history of chronic hypoxemia Now patient is on high-flow oxygen via nasal cannular Follow-up ABG showed hypercapnia, hypoxemic respiratory failure, pH 7.34, pCO2 64.8 PaO2 continue improved to 85.2 11/14 CTA reviewed Pulmonary consultation Taper oxygen as tolerated. Uncontrolled type 2 diabetes Patient is not on medication at home A1c 8.0 Started on Lantus 24 unit daily, aspart 6 unit a.c., continue sliding scale Adjust insulin Smoking cessation is imperative and was discussed. Nicotine patch ordered per patient request. Blood pressures are stable. Continue home medication AFib with RVR new diagnosis. seen by power bender operator, was on Cardizem drip until and on 11/20 was transition to Cardizem 60 PO q6 and BB now rate is better control, Echo on August 2024 with EF 55-60% no significant valvular disease. TSH normal. TSH in [place] 0.09. patient also has acute on chronic respiratory failure with hypoxemia and hypercapnia patient is seen by administrative liaison and being treated with non invensive ventilator and being titrated, patient will have overnight ApneaLink on the noninvensive ventilator and possibly discharge in the morning. patient is also found to have diabetes and its uncontrolled with A1c of 8 and does not take his medications and does not follow diabetes diet. patient is not keen on taking insulin will start patient on metformin 500mg BID and glipizide 5mg daily. Rheumatoid arthritis takes diclofenac not on any immunomodulators RF 16.9 follow-up as an outpatient basis DVT prophylaxis heparin drip now started on eliquis Code status full code Subjective Date/time seen: 11/21/24 15:15 Interval history: AFib with RVR new diagnosis. seen by power bender operator, was on Cardizem drip until and on 11/20 was transition to Cardizem 60 PO q6 and BB now rate is better control, Echo on August 2024 with EF 55-60% no significant valvular disease. TSH normal. TSH in August. patient also has acute on chronic respiratory failure with hypoxemia and hypercapnia patient is seen by administrative liaison and being treated with non invensive ventilator and being titrated, patient will have overnight ApneaLink on the noninvensive ventilator and possibly discharge in the morning. patient is also found to have diabetes and its uncontrolled with A1c of 8 and does not take his medications and does not follow diabetes diet. patient is not keen on taking insulin will start patient on metformin 500mg BID and glipizide 5mg daily. Review of Systems Review of Systems: 12 systems were reviewed and are negative except for as per HPI. All systems reviewed & are unremarkable except as noted in HPI and below Exam Narrative: Morbidly obese Patient is comfortable, NAD HEENT: eyes are clear and none icteric LUNGS: Bilateral fair entry with rhonchi and wheezing HEART: Irregularly irregular. ABD: BS+, Soft and nontender Lower extremities: no edema SKIN: nonjaundiced Neuro: grossly intact. Objective Data Vital Signs Vital Signs: Vital Signs - 24 hr 11/20/24 16:00 11/20/24 16:00 11/20/24 16:00 Temperature 36.6 C Pulse Rate 80 80 Respiratory Rate 16 Blood Pressure 106/53 L 106/55 L Pulse Oximetry 93 93 Oxygen Delivery High Flow Nasal Cannula Oxygen Flow Rate 4 Fraction of Inspired Oxygen 11/20/24 16:00 11/20/24 18:00 11/20/24 20:00 Temperature 36.7 C Pulse Rate 79 84 85 Respiratory Rate Blood Pressure Pulse Oximetry Oxygen Delivery Oxygen Flow Rate Fraction of Inspired Oxygen 11/20/24 20:00 11/20/24 20:00 11/20/24 20:04 Temperature Pulse Rate 87 85 Respiratory Rate 20 Blood Pressure Pulse Oximetry 94 Oxygen Delivery High Flow Nasal Cannula Oxygen Flow Rate 4 Fraction of Inspired Oxygen 11/20/24 20:07 11/20/24 20:37 11/20/24 20:46 Temperature 36.7 C Pulse Rate 85 84 Respiratory Rate 16 Blood Pressure 154/83 H Pulse Oximetry 95 93 Oxygen Delivery High Flow Nasal Cannula Oxygen Flow Rate 4 Fraction of Inspired Oxygen 11/20/24 22:00 11/20/24 22:15 11/20/24 23:56 Temperature 36.7 C Pulse Rate 80 89 Respiratory Rate 27 H 16 Blood Pressure 126/66 Pulse Oximetry 95 95 Oxygen Delivery Oxygen Flow Rate Fraction of Inspired Oxygen 11/21/24 00:00 11/21/24 00:00 11/21/24 01:30 Temperature Pulse Rate 81 81 Respiratory Rate 17 Blood Pressure Pulse Oximetry 98 96 Oxygen Delivery BiPAP Oxygen Flow Rate Fraction of Inspired Oxygen 40 11/21/24 02:00 11/21/24 04:00 11/21/24 04:00 Temperature Pulse Rate 87 92 Respiratory Rate Blood Pressure Pulse Oximetry 95 Oxygen Delivery BiPAP Oxygen Flow Rate Fraction of Inspired Oxygen 40 11/21/24 04:31 11/21/24 06:00 11/21/24 06:37 Temperature 36.7 C 36.7 C Pulse Rate 105 H 89 102 H Respiratory Rate 16 16 Blood Pressure 105/58 L Pulse Oximetry 96 94 Oxygen Delivery Oxygen Flow Rate Fraction of Inspired Oxygen 11/21/24 07:30 11/21/24 07:30 11/21/24 08:00 Temperature 36.6 C Pulse Rate 107 H 82 Respiratory Rate 18 20 Blood Pressure 99/51 L Pulse Oximetry 97 96 Oxygen Delivery High Flow Nasal Cannula Oxygen Flow Rate 4 Fraction of Inspired Oxygen 11/21/24 08:00 11/21/24 08:00 11/21/24 09:56 Temperature Pulse Rate 115 H 121 H Respiratory Rate Blood Pressure Pulse Oximetry 95 Oxygen Delivery High Flow Nasal Cannula Oxygen Flow Rate 3 Fraction of Inspired Oxygen 11/21/24 10:00 11/21/24 12:00 11/21/24 14:30 Temperature 36.6 C Pulse Rate 90 78 86 Respiratory Rate 20 20 Blood Pressure 114/69 Pulse Oximetry 95 Oxygen Delivery Oxygen Flow Rate Fraction of Inspired Oxygen 11/21/24 14:30 Temperature Pulse Rate Respiratory Rate Blood Pressure Pulse Oximetry 96 Oxygen Delivery High Flow Nasal Cannula Oxygen Flow Rate 3 Fraction of Inspired Oxygen Intake/Output Intake/Output: Intake & Output 11/18/24 11/19/24 11/20/24 11/21/24 23:59 23:59 23:59 23:59 Intake Total 3373.5 2810.9 1566.8 1230 Output Total 2050 4910 2470 1300 Balance 1323.5 -2099.1 -903.2 -70 Meds/Results Medications: Active Medications Generic Name Dose Route Start Last Admin Trade Name Freq PRN Reason Stop Dose Admin Acetaminophen 650 mg 11/13/24 16:47 11/21/24 09:59 Acetaminophen 325 Mg Tablet PO 650 mg Q4H PRN Administration Mild Pain (1-3) or Fever Hydrocodone Bitart/Acetaminophen 1 tab 11/14/24 20:51 11/21/24 06:07 Hydrocodone/Acetaminophen (*Crx) 5-325 Mg Tablet PO 1 tab Q8H PRN Administration Pain Acetylcysteine 200 mg 11/17/24 14:00 11/21/24 14:30 Acetylcysteine 20% Inhal Soln 800 Mg/4 Ml Vial INHALATION Not Given Q6HRT SASHA Albuterol 2.5 mg 11/14/24 10:29 Albuterol Sulfate Neb 2.5 Mg/3 Ml Inh INHALATION Q4HRT PRN Shortness Of Breath Apixaban 5 mg 11/16/24 21:00 11/21/24 09:56 Apixaban 5 Mg Tablet PO 5 mg Q12HR SASHA Administration Atorvastatin Calcium 80 mg 11/14/24 21:00 11/20/24 20:45 Atorvastatin 40 Mg Tablet PO 80 mg HS SASHA Administration Dextrose 12.5 gm 11/14/24 20:53 Dextrose 50% 25 Gm/50 Ml Syringe IV PUSH PRN PRN Hypoglycemia Protocol Diltiazem HCl 60 mg 11/19/24 12:55 11/21/24 12:54 Diltiazem Hcl 60 Mg Tablet PO 60 mg Q6HR SASHA Administration Glipizide 5 mg 11/22/24 06:30 Glipizide 5 Mg Tablet PO DAILY@0630 SASHA Glucagon 1 mg 11/14/24 20:53 Glucagon For Inj 1 Mg Vial IM PRN PRN Hypoglycemia Protocol Glucose 15 gm 11/14/24 20:53 Glucose Oral Gel 15 Gm Of Glucse In 37.5 Gm Tube PO PRN PRN Hypoglycemia Protocol Guaifenesin 1,200 mg 11/16/24 21:00 11/21/24 09:57 Guaifenesin 12 Hr 600 Mg Tabcr PO 1,200 mg Q12HR SASHA Administration Dextrose 1,000 mls @ 100 mls/hr 11/14/24 20:53 Dextrose 5% 1,000 Ml IVPB PRN PRN Hypoglycemia Protocol Insulin Aspart 4 - 8 units 11/15/24 08:00 11/21/24 12:54 Insulin Aspart (*Bkc) 100 Units/Ml SUB-Q Not Given TIDWM [facility] Protocol Ipratropium [place] 0.5 mg 11/16/24 02:00 11/21/24 14:30 Ipratropium Br 0.02% Inh Soln 0.5 Mg/2.5 Ml Vial INHALATION 0.5 mg Q6HRT SASHA Administration Levalbuterol HCl 1.25 mg 11/20/24 09:37 Levalbuterol Neb 1.25 Mg/3 Ml INHALATION Q6HRT PRN Wheezing Levofloxacin 750 mg 11/19/24 21:00 11/20/24 20:46 Levofloxacin 750 Mg Tablet PO 11/21/24 21:01 750 mg QHS SASHA Administration Lisinopril 30 mg 11/15/24 09:00 11/21/24 09:56 Lisinopril 10 Mg Tablet PO 30 mg DAILY SASHA Administration Metformin HCl 500 mg 11/21/24 17:00 Metformin Hcl 500 Mg Tablet PO BIDWM [facility] Metoprolol Tartrate 25 mg 11/18/24 21:00 11/21/24 09:56 Metoprolol Tartrate 25 Mg Tablet PO 25 mg Q12HR SASHA Administration Nicotine 1 patch 11/15/24 14:45 11/21/24 09:56 Nicotine (*Pbkc) 21 Mg Patch TRANSDERM 1 patch DAILY SASHA Administration Ondansetron HCl 4 mg 11/13/24 16:47 Ondansetron Inj 4 Mg/2 Ml Vial IV PUSH Q4H PRN Nausea Pantoprazole Sodium 40 mg 11/15/24 09:00 11/21/24 09:57 Pantoprazole 40 Mg Tablet PO 40 mg QAM SASHA Administration Fluticasone/Salmeterol 2 puff 11/14/24 20:00 11/21/24 07:30 Fluticasone/Salmeterol 115-21 Mcg Inhaler 1 Puff INHALATION 2 puff Q12HRT SASHA Administration Umeclidinium [place] 1 puff 11/15/24 08:00 11/21/24 07:29 Umeclidinium [place] 62.5 Mcg Ellipta INHALATION 1 puff DAILYRT SASHA Administration Radiology Results: ITS Impressions Chest CTA 11/16/24 11:31 IMPRESSION: 1. No pulmonary embolism. 2. No significant change in a 2.5 x 1.7 cm nodule with lobular margins and some central cavitation in the superior segment of the right lower lobe which could be infectious, inflammatory or malignant in etiology. Recommend routine CT-guided biopsy. 3. Mild emphysema. 4. Scattered bronchial mucous plugging in the bilateral lower lobes consistent with bronchitis with dependent consolidation in the dependent aspect of the lower lobes and favor secondary atelectasis over pneumonia. 5. 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 Chest X-Ray 11/18/24 06:51 Impression: Discoid left basilar atelectasis, less likely pneumonia. Right lung clear. Labs Labs: Laboratory Results - last 24 hr 11/20/24 11/20/24 11/21/24 15:39 20:12 06:48 Creatinine 0.80 Estim Creat Clear Calc 169 Estimated GFR > 60 POC Capillary Glucose 264 H 114 H 11/21/24 07:32 Creatinine Estim Creat Clear Calc Estimated GFR POC Capillary Glucose 197 H Quality VTE Prophylaxis VTE prophylaxis: pharmacologic ordered
[2024-11-21 16:49] LABS: Glucose Point of Care 140 mg/dl (65-105)
[2024-11-21 17:11] LABS: Glucose Point of Care 87 mg/dl (65-105)
[2024-11-21] MEDS: metFORMIN HCL 500 MG TABLET PO (17:44)
[2024-11-21] MEDS: METOPROLOL TARTRATE INJ 5 MG/5 ML VIAL IV PUSH (18:46)
[2024-11-21] MEDS: levoFLOXacin 750 MG TABLET PO (20:41)
[2024-11-21] MEDS: ATORVASTATIN 40 MG TABLET 80 MG PO (20:41)
[2024-11-21 21:06] LABS: Glucose Point of Care 144 mg/dl (65-105)
--- NOTE | 2024-11-21 22:00 | PC.NURSE ---
I called and spoke with Dr. Steinberg about Pt. being in A-fib with RVR. Pt. was on a Cardizem drip in IMU which the Cardizem drip was D/C'd and Pt. transferred to our floor. Pt. was given IV Metoprolol earlier today on our unit and I also informed him that EKG was done showing A-fib with RVR rate of 120. Metoprolol 25 mg given PO earlier and Cardizem PO scheduled for midnight. Dr. Steinberg states to give Cardizem PO now.
[2024-11-22] VITALS (11 sets, daily range): BP systolic 123; BP diastolic 66; PULSE 80–128; RESP 20; TEMP 37.1; O2SAT 94–96
[2024-11-22] MEDS: dilTIAZem HCL 60 MG TABLET PO (05:29)
[2024-11-22] MEDS: glipiZIDE 5 MG TABLET PO (05:29)
[2024-11-22 05:57] LABS: Alveolar/Arterial O2 Gradient 98.8 mmHg; Base Excess ABG 5.4 mEq/l (+/-2.0); Fractional Inspired Oxygen 32 %; HCO3 ABG 30.3 mEq/l (22.0-26.0); Oxygen Content ABG 19.8 %vol (16.0-22.0); Oxygen Saturation ABG 95.8 % (95.0-100.0); Oxyhemoglobin 95.3 % THb (90.0-100.0); PO2 ABG 76.7 mmHg (80.0-100.0); Total Hemoglobin 14.8 g/dL (12.0-18.0); pH ABG 7.446 (7.350-7.450)
[2024-11-22 05:58] LABS: Modified Allen's Test Pass; Site Drawn RIGHT RADIAL
[2024-11-22 05:59] LABS: Device NASAL CANNULA
[2024-11-22 07:56] LABS: Glucose Point of Care 150 mg/dl (65-105)
--- NOTE | 2024-11-22 08:12 | PM.PNCARD ---
Progress Note: A&P Assessment and Plan (1) Atrial fibrillation with RVR: Code(s): I48.91 - Unspecified atrial fibrillation Status: Acute Assessment and Plan: 54-year-old male with hypertension, diabetes mellitus, COPD, chronic respiratory failure on home oxygen, KAL on CPAP, dyslipidemia, morbid obesity, history of heavy tobacco abuse. Patient admitted to the hospital with acute on chronic hypoxemic and hypercarbic respiratory failure. He went into AFib with RVR during hospitalization (paroxysmal versus persistent). Recent LV systolic function on echo reported to be preserved. -Increase Cardizem to 90 mg p.o. q.6 hours -Increase metoprolol to 50mg b.i.d. -Continue anticoagulation with apixaban 5 mg p.o. b.i.d.. -Continue to monitor on telemetry I discussed his increase in heart rate and options for management including titrating medications and SARINA/DCCV. I did offer him the option of SARINA/DCCV later today depending on anesthesia availability. He declines the option for CV at this time and prefers to continue with medical management/rate control. He states no matter what I am leaving the hospital today. He states he is at the end of his rope. I did reiterate that if CV was completed and successful this afternoon, from a cardiac perspective he would still be able to discharge today. At this time he is choosing rate control. The fdc management strategy will be to attempt DCCV as an outpatient when he has been anticoagulated for at least 4 weeks. Increase diltiazem and metoprolol as above. If rate controlled with increased doses, discharge on long acting Diltiazem and ToprolXL at equivalent doses for dosing convenience. (2) Acute on chronic respiratory failure with hypoxia and hypercapnia: Code(s): J96.21 - Acute and chronic respiratory failure with hypoxia; J96.22 - Acute and chronic respiratory failure with hypercapnia Status: Acute Assessment and Plan: -Supplemental oxygen, bronchodilators-management as per primary team and pulmonology -Patient has history of heavy tobacco abuse but reports that he has quit tobacco. He was advised to continue to abstain from smoking (3) COPD exacerbation: Code(s): J44.1 - Chronic obstructive pulmonary disease with (acute) exacerbation Status: Acute Assessment and Plan: -Management as per primary team (4) KAL (obstructive sleep apnea): Code(s): G47.33 - Obstructive sleep apnea (adult) (pediatric) Status: Acute Assessment and Plan: -Supplemental oxygen Subjective Date/time seen: 11/22/24 08:12 Interval history: Reason for the encounter: AFib with RVR Relevant history: 54-year-old male with hypertension, diabetes mellitus, COPD, chronic respiratory failure on home oxygen, KAL on CPAP, dyslipidemia, morbid obesity, history of heavy tobacco abuse was admitted to the hospital with acute on chronic hypoxemic and hypercarbic respiratory failure. He went into AFib with RVR during hospitalization (paroxysmal versus persistent). Recent LV systolic function on echo reported to be preserved. Interval history: Patient had AFib with RVR when the rate of Cardizem drip was reduced from 15 mg/hour to 5 mg/hour last night. Cardizem drip was then increased back up to 15 mg/hour. With p.o. Cardizem 60 mg q.6 hours, heart rates were better controlled to the 70s to 100s range. 11/22/2024: Over the last ~18 hours, patient has been consistently tachycardic. He does feel palpitations occasionally but generally is asymptomatic. No increased shortness of breath, no chest pain. Review of Systems Review of Systems: All systems reviewed & are unremarkable except as noted in HPI and below Exam Narrative: PHYSICAL EXAMINATION: GENERAL: Morbidly obese male, on supplemental oxygen; no acute distress MENTAL STATUS: affect appropriate to mood EYES: Extraocular movements intact, no pallor EARS: External ears appear normal, hearing grossly normal NOSE: Normal and patent, no discharge MOUTH: Mucous membranes moist, tongue normal NECK: Supple, JVP not appreciable, thick neck CHEST: Good respiratory effort, clear to auscultation HEART: Tachycardic, irregularly irregular rhythm ABDOMEN: Soft, nontender NEUROLOGICAL: Alert, oriented, normal speech, no gross motor deficits MUSCULOSKELETAL: No major deformity, no amputation EXTREMITIES: Mild pedal edema, no clubbing, no cyanosis SKIN: no rash on the exposed area, no cyanosis PSYCHIATRIC: Normal mood, appropriate affect Objective Data Vital Signs Vital Signs: Vital Signs - 24 hr 11/21/24 09:56 11/21/24 10:00 11/21/24 12:00 Temperature 36.6 C Pulse Rate 121 H 90 78 Respiratory Rate 20 Blood Pressure 114/69 Pulse Oximetry 95 Oxygen Delivery Oxygen Flow Rate Fraction of Inspired Oxygen 11/21/24 14:00 11/21/24 14:30 11/21/24 14:30 Temperature 36.7 C Pulse Rate 80 86 Respiratory Rate 20 20 Blood Pressure 131/99 H Pulse Oximetry 98 96 Oxygen Delivery High Flow Nasal Cannula Oxygen Flow Rate 3 Fraction of Inspired Oxygen 11/21/24 16:00 11/21/24 18:46 11/21/24 20:00 Temperature Pulse Rate 113 H 152 H 107 H Respiratory Rate Blood Pressure Pulse Oximetry Oxygen Delivery Oxygen Flow Rate Fraction of Inspired Oxygen 11/21/24 20:38 11/21/24 20:41 11/21/24 20:50 Temperature 36.2 C L Pulse Rate 128 H 59 L Respiratory Rate 18 Blood Pressure 102/59 L Pulse Oximetry 96 95 Oxygen Delivery High Flow Nasal Cannula Oxygen Flow Rate 3 Fraction of Inspired Oxygen 32 11/21/24 20:50 11/21/24 21:02 11/21/24 23:53 Temperature Pulse Rate 107 H 115 H Respiratory Rate 20 20 Blood Pressure Pulse Oximetry 94 Oxygen Delivery Oxygen Flow Rate Fraction of Inspired Oxygen 11/21/24 23:53 11/22/24 00:00 11/22/24 04:00 Temperature Pulse Rate 106 H 99 Respiratory Rate Blood Pressure Pulse Oximetry 94 Oxygen Delivery Oxygen Flow Rate Fraction of Inspired Oxygen 11/22/24 04:27 Temperature 37.1 C Pulse Rate 128 H Respiratory Rate 20 Blood Pressure 123/66 Pulse Oximetry 94 Oxygen Delivery Oxygen Flow Rate Fraction of Inspired Oxygen Intake/Output Intake/Output: Intake & Output 11/19/24 11/20/24 11/21/24 11/22/24 23:59 23:59 23:59 23:59 Intake Total 2810.9 1566.8 1720 800 Output Total 4910 2470 1300 650 Balance -2099.1 -903.2 420 150 Meds/Results Medications: Active Medications Generic Name Dose Route Start Last Admin Trade Name Freq PRN Reason Stop Dose Admin Acetaminophen 650 mg 11/13/24 16:47 11/21/24 09:59 Acetaminophen 325 Mg Tablet PO 650 mg Q4H PRN Administration Mild Pain (1-3) or Fever Hydrocodone Bitart/Acetaminophen 1 tab 11/14/24 20:51 11/21/24 06:07 Hydrocodone/Acetaminophen (*Crx) 5-325 Mg Tablet PO 1 tab Q8H PRN Administration Pain Acetylcysteine 200 mg 11/17/24 14:00 11/22/24 02:07 Acetylcysteine 20% Inhal Soln 800 Mg/4 Ml Vial INHALATION Not Given Q6HRT SASHA Albuterol 2.5 mg 11/14/24 10:29 Albuterol Sulfate Neb 2.5 Mg/3 Ml Inh INHALATION Q4HRT PRN Shortness Of Breath Apixaban 5 mg 11/16/24 21:00 11/21/24 20:38 Apixaban 5 Mg Tablet PO 5 mg Q12HR SASHA Administration Atorvastatin Calcium 80 mg 11/14/24 21:00 11/21/24 20:41 Atorvastatin 40 Mg Tablet PO 80 mg HS SASHA Administration Dextrose 12.5 gm 11/14/24 20:53 Dextrose 50% 25 Gm/50 Ml Syringe IV PUSH PRN PRN Hypoglycemia Protocol Diltiazem HCl 60 mg 11/19/24 12:55 11/22/24 05:29 Diltiazem Hcl 60 Mg Tablet PO 60 mg Q6HR SASHA Administration Glipizide 5 mg 11/22/24 06:30 11/22/24 05:29 Glipizide 5 Mg Tablet PO 5 mg DAILY@0630 SASHA Administration Glucagon 1 mg 11/14/24 20:53 Glucagon For Inj 1 Mg Vial IM PRN PRN Hypoglycemia Protocol Glucose 15 gm 11/14/24 20:53 Glucose Oral Gel 15 Gm Of Glucse In 37.5 Gm Tube PO PRN PRN Hypoglycemia Protocol Guaifenesin 1,200 mg 11/16/24 21:00 11/21/24 20:41 Guaifenesin 12 Hr 600 Mg Tabcr PO 1,200 mg Q12HR SASHA Administration Dextrose 1,000 mls @ 100 mls/hr 11/14/24 20:53 Dextrose 5% 1,000 Ml IVPB PRN PRN Hypoglycemia Protocol Insulin Aspart 4 - 8 units 11/15/24 08:00 11/21/24 17:17 Insulin Aspart (*Bkc) 100 Units/Ml SUB-Q Not Given TIDWM [facility] Protocol Ipratropium [place] 0.5 mg 11/16/24 02:00 11/22/24 02:07 Ipratropium Br 0.02% Inh Soln 0.5 Mg/2.5 Ml Vial INHALATION Not Given Q6HRT SASHA Levalbuterol HCl 1.25 mg 11/20/24 09:37 Levalbuterol Neb 1.25 Mg/3 Ml INHALATION Q6HRT PRN Wheezing Lisinopril 30 mg 11/15/24 09:00 11/21/24 09:56 Lisinopril 10 Mg Tablet PO 30 mg DAILY SASHA Administration Metformin HCl 500 mg 11/21/24 17:00 11/21/24 17:44 Metformin Hcl 500 Mg Tablet PO 500 mg BIDWM SASHA Administration Metoprolol Tartrate 25 mg 11/18/24 21:00 11/21/24 20:38 Metoprolol Tartrate 25 Mg Tablet PO 25 mg Q12HR SASHA Administration Nicotine 1 patch 11/15/24 14:45 11/21/24 09:56 Nicotine (*[place]) 21 Mg Patch TRANSDERM 1 patch DAILY SASHA Administration Ondansetron HCl 4 mg 11/13/24 16:47 Ondansetron Inj 4 Mg/2 Ml Vial IV PUSH Q4H PRN Nausea Pantoprazole Sodium 40 mg 11/15/24 09:00 11/21/24 09:57 Pantoprazole 40 Mg Tablet PO 40 mg QAM SASHA Administration Fluticasone/Salmeterol 2 puff 11/14/24 20:00 11/21/24 20:55 Fluticasone/Salmeterol 115-21 Mcg Inhaler 1 Puff INHALATION 2 puff Q12HRT SASHA Administration Umeclidinium [place] 1 puff 11/15/24 08:00 11/21/24 07:29 Umeclidinium [place] 62.5 Mcg Ellipta INHALATION 1 puff DAILYRT SASHA Administration Radiology Results: ITS Impressions Chest CTA 11/16/24 11:31 IMPRESSION: 1. No pulmonary embolism. 2. No significant change in a 2.5 x 1.7 cm nodule with lobular margins and some central cavitation in the superior segment of the right lower lobe which could be infectious, inflammatory or malignant in etiology. Recommend routine CT-guided biopsy. 3. Mild emphysema. 4. Scattered bronchial mucous plugging in the bilateral lower lobes consistent with bronchitis with dependent consolidation in the dependent aspect of the lower lobes and favor secondary atelectasis over pneumonia. 5. 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 Chest X-Ray 11/18/24 06:51 Impression: Discoid left basilar atelectasis, less likely pneumonia. Right lung clear. Labs Labs: Laboratory Results - last 24 hr 11/21/24 11/21/24 11/21/24 11:27 16:46 20:46 Puncture Site ABG pH ABG pCO2 ABG pO2 ABG PO2/FiO2 Ratio ABG HCO3 ABG O2 Saturation ABG O2 Content ABG Base Excess A-a Gradient Oxyhemoglobin Total Hemoglobin O2 Delivery Device O2 Liters/Min FiO2 POC Capillary Glucose 87 140 H 144 H 11/22/24 11/22/24 05:41 07:40 Puncture Site Right radial ABG pH 7.446 ABG pCO2 45.0 ABG pO2 76.7 L ABG PO2/FiO2 Ratio 2.40 ABG HCO3 30.3 H ABG O2 Saturation 95.8 ABG O2 Content 19.8 ABG Base Excess 5.4 A-a Gradient 98.8 Oxyhemoglobin 95.3 Total Hemoglobin 14.8 O2 Delivery Device Nasal cannula O2 Liters/Min 3.0 FiO2 32 POC Capillary Glucose 150 H Quality VTE Prophylaxis VTE prophylaxis: pharmacologic ordered
--- NOTE | 2024-11-22 08:42 | PM.PNPUL ---
Progress Note: A&P Assessment and Plan (1) Obesity hypoventilation syndrome: Code(s): E66.2 - Morbid (severe) obesity with alveolar hypoventilation Status: Acute Assessment and Plan: This 54-year-old man, with chronic hypoxemic and hypercapnic respiratory failure and a similar hospitalization three months ago, is presenting again with acute on chronic hypercapnic respiratory failure. He has responded well to treatment with noninvasive ventilatory support and management for a possible COPD exacerbation, including antibiotics, bronchodilators, and IV steroids. Currently, he is improving and tolerating the AVAPS mode for ventilatory support at night, along with supplemental oxygen via high-flow nasal cannula during the day. On physical examination, he has clear lungs. Based on his history of mild obstructive sleep apnea and significant weight gain over the past 13 years, his chronic hypercapnic hypoxemic respiratory failure is most likely related to untreated obesity hypoventilation. Despite a long history of smoking, his chest CT shows only mild paraseptal emphysema, and given his age, it is highly likely that obesity hypoventilation is the primary cause of his hypercapnic respiratory failure rather than end-stage COPD. No pulmonary function testing is available for review. The patient will benefit from home ventilatory support for obesity hypoventilation syndrome (OHS), having experienced two hospitalizations for acute on chronic hypercapnic respiratory failure over the past three months. While the patient has responded well to the BiPAP machine during these hospitalizations, transitioning to a home ventilator offers more advanced and customizable ventilatory support. Home ventilators can deliver precise tidal volumes and adjust more effectively to the patient's specific needs, optimizing ventilation and improving gas exchange, which is crucial in managing OHS. Importantly, the use of home ventilators can reduce the frequency of hospital admissions and enhance overall health outcomes for patients with severe respiratory failure due to OHS. On physical exam today his lungs were clear with no wheezing. His lower extremity edema overall has decreased. ApneaLink study on home ventilator last night showed no significant oxyhemoglobin desaturation while the patient was also on supplemental oxygen at 3 liters/minute. Plan: From a respiratory standpoint, the patient is ready for discharge home. He will continue using the home ventilator at the current settings, along with supplemental oxygen at 3 liters per minute. A home oxygen evaluation will be needed to determine if he requires oxygen at rest and during activities. The patient will resume his maintenance bronchodilators for his underlying obstructive airway disease, as outlined in his home medication list. Additionally, he will use a nebulized short-acting bronchodilator three times daily as needed. Further evaluation in the outpatient pulmonary clinic is necessary to assess obesity hypoventilation syndrome and the effectiveness of his home ventilator treatment. Pulmonary function testing will be conducted to assess the underlying obstructive airway disease, and further investigation of the lobular nodule in the right lower lobe, first detected during the last hospitalization, will be required. I have reiterated the importance of returning to the pulmonary clinic for these health issues and provided the patient with the clinic business card to schedule an appointment and inform our scheduling trade union secretary. I will sign off now; please feel free to call with any questions. (2) Obstructive sleep apnea: Code(s): G47.33 - Obstructive sleep apnea (adult) (pediatric) Status: Acute (3) Hypercapnia: Code(s): R06.89 - Other abnormalities of breathing Status: Acute (4) Acute on chronic respiratory failure with hypoxia and hypercapnia: Code(s): J96.21 - Acute and chronic respiratory failure with hypoxia; J96.22 - Acute and chronic respiratory failure with hypercapnia Status: Acute (5) Acute respiratory failure: Code(s): J96.00 - Acute respiratory failure, unspecified whether with hypoxia or hypercapnia Status: Acute (6) Atrial fibrillation with RVR: Code(s): I48.91 - Unspecified atrial fibrillation Status: Acute (7) Lung nodule: Code(s): R91.1 - Solitary pulmonary nodule Status: Acute Assessment and Plan: A chest CT revealed a nodular opacity measuring 2.5 x 1.7 cm with lobular margins and central cavitation located in the superior segment of the right lower lobe. Compared to the previous chest CT, there has been no significant increase in the size of the nodule. Please refer to the radiology report for further details. The patient will require additional evaluation, possibly including a CT-guided needle aspiration, to be conducted on an outpatient basis. The findings from the chest CT have been discussed with the patient. Subjective Date/time seen: 11/22/24 08:42 Interval history: Patient has no new respiratory symptoms. Used loaner home ventilator along with supplemental oxygen at 3 liters/minute. His apnea link study on those settings showed no significant oxyhemoglobin desaturation. Patient anxious to go home Review of Systems Review of Systems: All systems reviewed & are unremarkable except as noted in HPI and below Exam Narrative: GENERAL APPEARANCE: Well developed, well nourished, alert and cooperative, morbidly obese and appears to be in no acute distress while on supplemental oxygen SKIN: Inspection of the skin reveals no rashes, ulcerations or petechiae. HEENT: Sclerae anicteric and conjunctivae pink and moist. Extraocular movements were intact and pupils were equal, round, and reactive to light. The oral mucosa, hard and soft palate, tongue and posterior pharynx were normal. NECK: Supple. There was no thyroid enlargement, and no tenderness, or masses were felt. CHEST: Normal AP diameter and normal contour without any kyphoscoliosis. LUNGS: Few scattered wheezes otherwise clear lungs CARDIAC: There was a regular rate and rhythm without any murmurs, gallops, rubs. ABDOMEN: Soft and nontender with normal bowel sounds. There was no organomegaly. LYMPH NODES: No lymphadenopathy was appreciated in the neck.. EXTREMITIES: No cyanosis, clubbing; trace pedal edema NEUROLOGIC: Alert and oriented x 3. Normal affect. Objective Data Vital Signs Vital Signs: Vital Signs - 24 hr 11/21/24 09:56 11/21/24 10:00 11/21/24 12:00 Temperature 36.6 C Pulse Rate 121 H 90 78 Respiratory Rate 20 Blood Pressure 114/69 Pulse Oximetry 95 Oxygen Delivery Oxygen Flow Rate Fraction of Inspired Oxygen 11/21/24 14:00 11/21/24 14:30 11/21/24 14:30 Temperature 36.7 C Pulse Rate 80 86 Respiratory Rate 20 20 Blood Pressure 131/99 H Pulse Oximetry 98 96 Oxygen Delivery High Flow Nasal Cannula Oxygen Flow Rate 3 Fraction of Inspired Oxygen 11/21/24 16:00 11/21/24 18:46 11/21/24 20:00 Temperature Pulse Rate 113 H 152 H 107 H Respiratory Rate Blood Pressure Pulse Oximetry Oxygen Delivery Oxygen Flow Rate Fraction of Inspired Oxygen 11/21/24 20:38 11/21/24 20:41 11/21/24 20:50 Temperature 36.2 C L Pulse Rate 128 H 59 L Respiratory Rate 18 Blood Pressure 102/59 L Pulse Oximetry 96 95 Oxygen Delivery High Flow Nasal Cannula Oxygen Flow Rate 3 Fraction of Inspired Oxygen 32 11/21/24 20:50 11/21/24 21:02 11/21/24 23:53 Temperature Pulse Rate 107 H 115 H Respiratory Rate 20 20 Blood Pressure Pulse Oximetry 94 Oxygen Delivery Oxygen Flow Rate Fraction of Inspired Oxygen 11/21/24 23:53 11/22/24 00:00 11/22/24 04:00 Temperature Pulse Rate 106 H 99 Respiratory Rate Blood Pressure Pulse Oximetry 94 Oxygen Delivery Oxygen Flow Rate Fraction of Inspired Oxygen 11/22/24 04:27 Temperature 37.1 C Pulse Rate 128 H Respiratory Rate 20 Blood Pressure 123/66 Pulse Oximetry 94 Oxygen Delivery Oxygen Flow Rate Fraction of Inspired Oxygen Intake/Output Intake/Output: Intake & Output 11/19/24 11/20/24 11/21/24 11/22/24 23:59 23:59 23:59 23:59 Intake Total 2810.9 1566.8 1720 800 Output Total 4910 2470 1300 650 [facility] -2099.1 -903.2 420 150 Meds/Results Medications: Active Medications Generic Name Dose Route Start Last Admin Trade Name Freq PRN Reason Stop Dose Admin Acetaminophen 650 mg 11/13/24 16:47 11/21/24 09:59 Acetaminophen 325 Mg Tablet PO 650 mg Q4H PRN Administration Mild Pain (1-3) or Fever Hydrocodone Bitart/Acetaminophen 1 tab 11/14/24 20:51 11/21/24 06:07 Hydrocodone/Acetaminophen (*Crx) 5-325 Mg Tablet PO 1 tab Q8H PRN Administration Pain Acetylcysteine 200 mg 11/17/24 14:00 11/22/24 02:07 Acetylcysteine 20% Inhal Soln 800 Mg/4 Ml Vial INHALATION Not Given Q6HRT SASHA Albuterol 2.5 mg 11/14/24 10:29 Albuterol Sulfate Neb 2.5 Mg/3 Ml Inh INHALATION Q4HRT PRN Shortness Of Breath Apixaban 5 mg 11/16/24 21:00 11/21/24 20:38 Apixaban 5 Mg Tablet PO 5 mg Q12HR SASHA Administration Atorvastatin Calcium 80 mg 11/14/24 21:00 11/21/24 20:41 Atorvastatin 40 Mg Tablet PO 80 mg HS SASHA Administration Dextrose 12.5 gm 11/14/24 20:53 Dextrose 50% 25 Gm/50 Ml Syringe IV PUSH PRN PRN Hypoglycemia Protocol Diltiazem HCl 90 mg 11/22/24 12:00 Diltiazem Hcl 60 Mg Tablet PO Q6HR SASHA Glipizide 5 mg 11/22/24 06:30 11/22/24 05:29 Glipizide 5 Mg Tablet PO 5 mg DAILY@0630 SASHA Administration Glucagon 1 mg 11/14/24 20:53 Glucagon For Inj 1 Mg Vial IM PRN PRN Hypoglycemia Protocol Glucose 15 gm 11/14/24 20:53 Glucose Oral Gel 15 Gm Of Glucse In 37.5 Gm Tube PO PRN PRN Hypoglycemia Protocol Guaifenesin 1,200 mg 11/16/24 21:00 11/21/24 20:41 Guaifenesin 12 Hr 600 Mg Tabcr PO 1,200 mg Q12HR SASHA Administration Dextrose 1,000 mls @ 100 mls/hr 11/14/24 20:53 Dextrose 5% 1,000 Ml IVPB PRN PRN Hypoglycemia Protocol Insulin Aspart 4 - 8 units 11/15/24 08:00 11/22/24 08:16 Insulin Aspart (*Bkc) 100 Units/Ml SUB-Q Not Given TIDWM [facility] Protocol Ipratropium [place] 0.5 mg 11/16/24 02:00 11/22/24 02:07 Ipratropium Br 0.02% Inh Soln 0.5 Mg/2.5 Ml Vial INHALATION Not Given Q6HRT SASHA Levalbuterol HCl 1.25 mg 11/20/24 09:37 Levalbuterol Neb 1.25 Mg/3 Ml INHALATION Q6HRT PRN Wheezing Lisinopril 30 mg 11/15/24 09:00 11/21/24 09:56 Lisinopril 10 Mg Tablet PO 30 mg DAILY SASHA Administration Metformin HCl 500 mg 11/21/24 17:00 11/21/24 17:44 Metformin Hcl 500 Mg Tablet PO 500 mg BIDWM SASHA Administration Metoprolol Tartrate 50 mg 11/22/24 09:00 Metoprolol Tartrate 50 Mg Tab PO Q12HR SASHA Nicotine 1 patch 11/15/24 14:45 11/21/24 09:56 Nicotine (*Pbkc) 21 Mg Patch TRANSDERM 1 patch DAILY SASHA Administration Ondansetron HCl 4 mg 11/13/24 16:47 Ondansetron Inj 4 Mg/2 Ml Vial IV PUSH Q4H PRN Nausea Pantoprazole Sodium 40 mg 11/15/24 09:00 11/21/24 09:57 Pantoprazole 40 Mg Tablet PO 40 mg QAM SASHA Administration Fluticasone/Salmeterol 2 puff 11/14/24 20:00 11/21/24 20:55 Fluticasone/Salmeterol 115-21 Mcg Inhaler 1 Puff INHALATION 2 puff Q12HRT SASHA Administration Umeclidinium [place] 1 puff 11/15/24 08:00 11/21/24 07:29 Umeclidinium [place] 62.5 Mcg Ellipta INHALATION 1 puff DAILYRT SASHA Administration Radiology Results: ITS Impressions Chest CTA 11/16/24 11:31 IMPRESSION: 1. No pulmonary embolism. 2. No significant change in a 2.5 x 1.7 cm nodule with lobular margins and some central cavitation in the superior segment of the right lower lobe which could be infectious, inflammatory or malignant in etiology. Recommend routine CT-guided biopsy. 3. Mild emphysema. 4. Scattered bronchial mucous plugging in the bilateral lower lobes consistent with bronchitis with dependent consolidation in the dependent aspect of the lower lobes and favor secondary atelectasis over pneumonia. 5. 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 Chest X-Ray 11/18/24 06:51 Impression: Discoid left basilar atelectasis, less likely pneumonia. Right lung clear. Labs Labs: Laboratory Results - last 24 hr 11/21/24 11/21/24 11/21/24 11:27 16:46 20:46 Puncture Site ABG pH ABG pCO2 ABG pO2 ABG PO2/FiO2 Ratio ABG HCO3 ABG O2 Saturation ABG O2 Content ABG Base Excess A-a Gradient Oxyhemoglobin Total Hemoglobin O2 Delivery Device O2 Liters/Min FiO2 POC Capillary Glucose 87 140 H 144 H 11/22/24 11/22/24 05:41 07:40 Puncture Site Right radial ABG pH 7.446 ABG pCO2 45.0 ABG pO2 76.7 L ABG PO2/FiO2 Ratio 2.40 ABG HCO3 30.3 H ABG O2 Saturation 95.8 ABG O2 Content 19.8 ABG Base Excess 5.4 A-a Gradient 98.8 Oxyhemoglobin 95.3 Total Hemoglobin 14.8 O2 Delivery Device Nasal cannula O2 Liters/Min 3.0 FiO2 32 POC Capillary Glucose 150 H
[2024-11-22 09:12] LABS: Hematocrit 44.3 % (42.0-52.0); Hemoglobin 14.6 g/dL (14.0-18.0); Mean Corpuscular Hemoglobin 30.4 pg (26-34); Mean Corpuscular Volume 92.3 fl (80-100); Mean Platelet Volume 10.8 fl (7.4-10.4); Platelet Count Result 231 k/mm3 (150-375); Red Cell Distribution Width 15.1 % (11.5-14.5); White Blood Count 12.2 K/mm3 (4.5-10.0)
[2024-11-22] MEDS: PANTOPRAZOLE 40 MG TABLET PO (09:25)
[2024-11-22] MEDS: metFORMIN HCL 500 MG TABLET PO (09:25)
[2024-11-22] MEDS: METOPROLOL TARTRATE 50 MG TAB PO (09:25)
[2024-11-22] MEDS: APIXABAN 5 MG TABLET PO (09:25)
[2024-11-22] MEDS: NICOTINE (*PBKC) 21 MG PATCH 1 PATCH TRANSDERM (09:27)
[2024-11-22] MEDS: guaiFENesin 12 HR 600 MG TABCR 1200 MG PO (09:27)
[2024-11-22] MEDS: lisinopriL 10 MG TABLET 30 MG PO (09:27)
[2024-11-22 09:33] LABS: Anion Gap 7 mmol/L (4-12); Blood Urea Nitrogen 31 mg/dL (9-20); Calcium 8.4 mg/dL (8.4-10.2); Carbon Dioxide 28 mmol/L (22-30); Chloride 100 mmol/L (98-107); Estimated CRCL calculation 161 ml/min; Estimated Glomerular Filt Rate > 60; Glucose 113 mg/dL (65-110); Magnesium 1.9 mg/dL (1.6-2.3); Potassium 4.5 mmol/L (3.4-5.0); Sodium 135 mmol/L (137-145)
[2024-11-22] MEDS: IPRATROPIUM BR 0.02% INH SOLN 0.5 MG/2.5 ML VIAL INHALATION (09:58)
[2024-11-22] MEDS: FLUTICASONE/SALMETEROL 115-21 MCG INHALER 1 PUFF 2 PUFF INHALATION (09:59)
--- NOTE | 2024-11-22 10:17 | HOMEO2EVAL ---
Evaluation was performed at [facility] Home Oxygen Evaluation RC: Home Oxygen (O2) Evaluation Start: 11/22/24 08:51 Freq: ONCE Status: Active Protocol: RPE Activity Type Activity Date Activity User E-sign Co-sign Detail Recorded Client Recorded Date Recorded By Document 11/22/24 09:39 KRM [email or web address] 11/22/24 10:17 KRM Document 11/22/24 09:40 [email or web address] [email or web address] 11/22/24 10:17 KRM Document 11/22/24 09:45 [email or web address] [email or web address] 11/22/24 10:17 KRM 11/22/24 11/22/24 11/22/24 09:39 09:40 09:45 Home O2 Evaluation [Oxygen] -Test Phase Resting Exercise Exercise -Oxygen Delivery Room Air Room Air Room Air [Pulse Oximetry] -Pulse Oximetry (90-100 %) 94 96 95 [Pulse Rate] -Pulse Rate (60-100 beats/min) 80 80 96 [Evaluation] -Activity Tolerance Good Good [Exercise] -Ambulation Distance (feet) 500 -Ambulation Distance (meters) 152.39 [Charges] -Evaluation Charges O2 Evaluation by Pulmonary
[2024-11-22] MEDS: UMECLIDINIUM BROMIDE 62.5 MCG ELLIPTA 1 PUFF INHALATION (11:07)
[2024-11-22 11:44] LABS: Glucose Point of Care 156 mg/dl (65-105)
[2024-11-22] MEDS: dilTIAZem HCL 60 MG TABLET 90 MG PO (11:46)
--- NOTE | 2024-11-22 12:23 | PM.DS ---
DS: Admitting Diagnosis Discharge Date 11/22/24 Admitting Diagnosis Shortness of breath DS: Discharge Diagnosis Discharge Diagnosis (1) Acute on chronic respiratory failure with hypoxia and hypercapnia: Code(s): J96.21 - Acute and chronic respiratory failure with hypoxia; J96.22 - Acute and chronic respiratory failure with hypercapnia Status: Acute (2) COPD exacerbation: Code(s): J44.1 - Chronic obstructive pulmonary disease with (acute) exacerbation Status: Acute (3) Hypertension: Code(s): I10 - Essential (primary) hypertension Status: Acute (4) HLD (hyperlipidemia): Code(s): E78.5 - Hyperlipidemia, unspecified Status: Acute (5) KAL (obstructive sleep apnea): Code(s): G47.33 - Obstructive sleep apnea (adult) (pediatric) Status: Acute (6) Tobacco use: Code(s): Z72.0 - Tobacco use Status: Acute DS: Summary Hospital Course Hospital Course: AFib with RVR new diagnosis. seen by plant operator/shift supervisor, was on Cardizem drip until and on 11/20 was transition to Cardizem 60 PO q6 and BB now rate is better control, Echo on August 2024 with EF 55-60% no significant valvular disease. TSH normal. TSH in August 0.09. patient also has acute on chronic respiratory failure with hypoxemia and hypercapnia patient is seen by physiotherapist's assistant and being treated with non invensive ventilator and being titrated, patient will have overnight ApneaLink on the noninvensive ventilator and possibly discharge in the morning. patient is also found to have diabetes and its uncontrolled with A1c of 8 and does not take his medications and does not follow diabetes diet. patient is not keen on taking insulin will start patient on metformin 500mg BID and glipizide 5mg daily. patient is clinically stable, will discharge home today. Time Spent with Patient Time attestation: Total time spent providing and/or coordinating discharge services: Exam Narrative: Morbidly obese Patient is comfortable, NAD HEENT: eyes are clear and none icteric LUNGS: Bilateral fair entry with rhonchi and wheezing HEART: Irregularly irregular. ABD: BS+, Soft and nontender Lower extremities: no edema SKIN: nonjaundiced Neuro: grossly intact. DS: Data Data Completed and Pending Labs on day of discharge: Labs from last 24 hours 11/22/24 11/22/2411/22/25 11:39 08:41 07:40 WBC 12.2 H RBC 4.80 Hgb 14.6 Hct 44.3 MCV 92.3 MCH 30.4 MCHC 33.0 RDW 15.1 H Plt Count 231 MPV 10.8 H Puncture Site ABG pH ABG pCO2 ABG pO2 ABG PO2/FiO2 Ratio ABG HCO3 ABG O2 Saturation ABG O2 Content ABG Base Excess A-a Gradient Oxyhemoglobin Total Hemoglobin O2 Delivery Device O2 Liters/Min FiO2 Sodium 135 L Potassium 4.5 Chloride 100 Carbon Dioxide 28 Anion Gap 7 BUN 31 H Creatinine 0.83 Estim Creat Clear Calc 161 Estimated GFR > 60 Glucose 113 H POC Capillary Glucose 156 H 150 H Calcium 8.4 Magnesium 1.9 11/22/24 11/21/24 11/21/24 05:41 20:46 16:46 WBC RBC Hgb Hct MCV MCH MCHC RDW Plt Count MPV Puncture Site Right radial ABG pH 7.446 ABG pCO2 45.0 ABG pO2 76.7 L ABG PO2/FiO2 Ratio 2.40 ABG HCO3 30.3 H ABG O2 Saturation 95.8 ABG O2 Content 19.8 ABG Base Excess 5.4 A-a Gradient 98.8 Oxyhemoglobin 95.3 Total Hemoglobin 14.8 O2 Delivery Device Nasal cannula O2 Liters/Min 3.0 FiO2 32 Sodium Potassium Chloride Carbon Dioxide Anion Gap BUN Creatinine Estim Creat Clear Calc Estimated GFR Glucose POC Capillary Glucose 144 H 140 H Calcium Magnesium 11/21/24 11:27 WBC RBC Hgb Hct MCV MCH MCHC RDW Plt Count MPV Puncture Site ABG pH ABG pCO2 ABG pO2 ABG PO2/FiO2 Ratio ABG HCO3 ABG O2 Saturation ABG O2 Content ABG Base Excess A-a Gradient Oxyhemoglobin Total Hemoglobin O2 Delivery Device O2 Liters/Min FiO2 Sodium Potassium Chloride Carbon Dioxide Anion Gap BUN Creatinine Estim Creat Clear Calc Estimated GFR Glucose POC Capillary Glucose 87 Calcium Magnesium Discharge Plan Discharge Attending physician on discharge: Alisha Hess Consulting providers: Julien Lei; Man Hernandez; James Casas; Maranda Ulloa; Cameron Bourne; Genoveva Gusman; Tamir Dang; Bren Jj; Supriya Baeza; Hira Brewer V.; Agustin Joseph; Carlton Poon Discharging Clinician: Emma Diamond Patient Disposition: Home, Self-Care Activity: as tolerated Diet: heart healthy and diabetic Discharge Instructions: Patient to follow discharge instruction from his physiotherapist's assistant and plant operator/shift supervisor and follow up as scheduled, patient to follow up with his primary care provider as soon as possible, patient is strictly instructed to follow cardiac and diabetes diet, patient is instructed if any symptoms worsen to go to nearest ER Patient Instructions: Antibiotic Form, Apixaban (By mouth), COPD (Chronic Obstructive Pulmonary Disease) (GEN), How Your Lungs Work (GEN), Chronic Lung Disease and Infection Prevention (GEN) Patient Language: Croatian Stand Alone Forms: General Discharge Information Follow-up/Referrals: Vincenzo Salazar MD [Primary Care Provider] - Julien Lei MD [Physician] - Man Hernandez MD [Physician] - Discharge Medications: New dextrose [Glutose-15] 40 % Gel 15 g PO PRN PRN (Reason: Hypoglycemia) Qty: 30 0RF metoprolol tartrate 50 mg Tablet 50 mg PO Q12HR Qty: 60 1RF levalbuterol HCl 1.25 mg/3 mL Solution For Nebulization 1.25 mg inhalation Q6HRT PRN (Reason: Wheezing) Qty: 90 0RF diltiazem HCl 60 mg Tablet 90 mg PO Q6HR Qty: 180 1RF glipizide 5 mg Tablet 5 mg PO DAILY@0630 Qty: 30 1RF Eliquis 5 mg Tablet 5 mg PO Q12HR Qty: 60 1RF guaifenesin [Mucus Relief ER] 600 mg Tablet Extended Release 12hr 1,200 mg PO Q12HR Qty: 60 0RF metformin 500 mg tablet 500 mg PO BIDWMEAL Qty: 60 1RF Continued atorvastatin 40 mg Tablet 80 mg PO HS Qty: 30 0RF lisinopril 30 mg tablet 30 mg PO DAILY Qty: 30 0RF tiotropium bromide [Spiriva with HandiHaler] 18 mcg capsule, w/inhalation device 1 cap inhalation DAILY Qty: 30 0RF Rx Instructions: puncture 1 cap using device; one dose = 2 inhalations (DME) nebulizer and compressor Device See Rx Instructions .Route Qty: 1 0RF Rx Instructions: As directed ipratropium bromide 0.02 % solution 2.5 ml inhalation Q6H PRN (Reason: shortness of breath or wheezing) Qty: 75 0RF fluticasone propion-salmeterol [Advair Diskus] 250-50 mcg/dose blister with device 1 inh inhalation Q12H Qty: 60 0RF pantoprazole 40 mg tablet,delayed release (DR/EC) 40 mg PO QAM hydrocodone-acetaminophen 5-325 mg tablet 1 tablet PO Q8H nicotine [Nicoderm CQ] 21 mg/24 hr Patch 24 Hour 1 patch transdermal DAILY Qty: 28 0RF Held albuterol sulfate 90 mcg/actuation aerosol powdr breath activated 2 inh inhalation Q4H PRN (Reason: shortness of breath or wheezing) Qty: 1 0RF Hold Instructions: until seen by his primary care provider Discontinued levofloxacin 750 mg tablet 750 mg PO DAILY Qty: 3 0RF Date of admission: 11/14/24 09:16 Primary Care Provider: Vincenzo Salazar Admitting Provider: Alisha Hess Attending physician on admission: Emma Diamond Condition: Stable
--- NOTE | 2024-11-25 15:35 | PCCDE ---
11/25/24: ~ 3:30 pm Attempted Courtesy follow up phone call. Message left including call back number. CHAPITO
== END 2024-11-22 13:24 | disposition home or self-care (01) | DRG 133 ==
LOC: ANHED 14:36 → ANHIMU 17:14 → ANH3MEDSUR 11-22 12:16 → ANHIMU 11-25 09:03
PROVIDERS: Hospitalist; Internal Medicine; Internal Medicine Pulmonary Disease; Physician Assistant; Student in an Organized Health Care Education/Training Program; Admitting Provider Internal Medicine; Emergency Provider Emergency Medicine; PCP Family Medicine; Visit Provider Family Medicine
DX: J96.22 Acute and chronic respiratory failure with hypercapnia (principal); J96.21 Acute and chronic respiratory failure with hypoxia; J44.1 Chronic obstructive pulmonary disease with (acute) exacerbation; E78.5 Hyperlipidemia, unspecified; E66.2 Morbid (severe) obesity with alveolar hypoventilation; E11.65 Type 2 diabetes mellitus with hyperglycemia; I48.91 Unspecified atrial fibrillation; R91.1 Solitary pulmonary nodule; I10 Essential (primary) hypertension; F17.210 Nicotine dependence, cigarettes, uncomplicated; M06.9 Rheumatoid arthritis, unspecified; Z20.822 Contact with and (suspected) exposure to COVID-19; Z68.42 Body mass index [BMI] 45.0-49.9, adult; Z99.81 Dependence on supplemental oxygen; Z79.01 Long term (current) use of anticoagulants; Z79.84 Long term (current) use of oral hypoglycemic drugs
CPT/HCPCS: 36415; 36600; 71045; 71046; 71275; 80048; 80053; 82375; 82565; 82803; 82805; 82948; 83036; 83050; 83735; 83880; 84443; 85018; 85025; 85027; 85610; 85730; 87070; 87205; 87637; 87641; 93005; 94002; 94003; 94618; 94640; 94762; 96374; 96375; 96376; 99285; A9270; G0378; G0379; J1815; J1940; J1956; J2919; J3370; J7512; Q9967

== ENCOUNTER 2024-12-31 01:22 | Emergency (ER) | payer SELFPAY ==
[2024-12-31] VITALS (9 sets, daily range): BP systolic 149–155; BP diastolic 74–79; PULSE 78–88; RESP 12–22; TEMP 36.4–36.6; O2SAT 92–96
--- NOTE | ~2024-12-31 | XR_ITS ---
Portable chest x-ray Comparison: 11/18/2024 Clinical History: Shortness of breath Findings: Lungs are clear, without focal consolidation or pleural effusion. Cardiomediastinal silho uette is stable. Bones and soft tissues are unremarkable. Impression: Clear lungs. Reviewed, dictated and finalized at location . Impression: Clear lungs.
--- NOTE | 2024-12-31 01:27 | ECG_ITS ---
Test Date: 2024-12-31 01:28:19 Measurements Intervals [place] Rate: 88 P: 74 SC: 162 QRS: 74 QRSD: 106 T: 73 QT: 368 QTc: 446 Interpretive Statements SINUS RHYTHM MINIMAL Q WAVES- INFERIOR LEADS BORDERLINE T WAVE ABNORMALITY- HIGH LATERAL LEADS BASELINE ARTIFACT- I, II, III, AVR, AVL, AVF, V1-V6 BORDERLINE ECG Compared to ECG 11/21/2024 21:53:04 Atrial flutter no longer present Electronically Signed On 12-31-2024 06:26:45 CDT by James Casas D.O.
[2024-12-31 01:38] LABS: Basophils Percent Auto 0.6 % (0.2-1.2); Eosinophils Absolute Auto 0.5 K/mm3 (0-0.3); Eosinophils Percent Auto 8.5 % (0-4.4); Hematocrit 44.2 % (42.0-52.0); Hemoglobin 14.6 g/dL (14.0-18.0); Immature Granulocyte Absolute 0.02 K/mm3 (0.00-0.031); Immature Granulocyte Percent A 0.3 % (0-0.5); Lymphocytes Absolute Auto 1.65 K/mm3 (0.9-3.2); Lymphocytes Percent Auto 26.1 % (18.3-44.2); Mean Corpuscular Hemoglobin 31.4 pg (26-34); Mean Corpuscular Volume 95.1 fl (80-100); Monocytes Percent Auto 15.5 % (2.6-8.5); Neutrophils Absolute Auto 3.1 K/mm3 (1.3-6.7); Platelet Count Result 218 k/mm3 (150-375); Red Blood Count 4.65 M/mm3 (4.6-6.20); Red Cell Distribution Width 14.8 % (11.5-14.5); White Blood Count 6.3 K/mm3 (4.5-10.0)
--- OUTSIDE RECORDS SUMMARY | 2024-12-31 01:50 | XMS_ITS | Clinical Summary ---
Author Organization [facility] Address [address] [place] [id number] Phone [email or web address] Care Team Providers Care Strategic Account Manager Name Role Phone Unavailable Primary Care Provider Unavailabl e Allergies Active Allergy Reactions Criticality Noted Date Comments Codeine 10/07/2021 Lucid dreaming, itchy ears Medications aspirin (ST SHIRA) 81 MG EC tablet Take 81 mg by mouth 1 (one) time each day. Active Stafford-3 Fatty Acids (Fish Oil) 1000 MG capsule [...] complication, without long-term current use of insulin ([facility]) Take 1 tablet (500 mg total) by mouth in the morning and 1 tablet (500 mg total) in the evening. Take with meals. 180 tablet 4 03/18/20 25 Active Active Problems Problem Noted Date Diagnosed Date Plantar fasciitis, left 06/14/2023 Assessment & Plan (09/27/2023 3:45 PM CUSTOMER ENGAGEMENT MANAGER): Has been following with podiatry Doing much [...] may use the free smart phone andrews Yatangopal to help track calories and try to reduce by 15% every 4 weeks. You should also work on reducing your total portion sizes. You should be exercising about 30 minutes every day with cardio work outs. You should strive to avoid regular soda, juices and alcohol. Assessment & Plan (09/27/2023 3:44 PM CUSTOMER ENGAGEMENT MANAGER): Pt has an elevated BMI over 30 Body mass index is BMI Readings from Last 1 Encounters: 09/27/23 42.40 kg/m and you will need to work hard on reducing carbohydrates and total calories. You may use the free smart phone anderws itembase to help track calories and try to [...] may use the free smart phone andrews itembase to help track calories and try to [...] before you use any other medicines, including svbg-aiz-relreax medicines. Make sure your doctor knows all [...] before you use any other medicines, including mjhc-aln-rqhwxbs medicines. Make sure your doctor knows all [...] appt Assessment & Plan (10/05/2023 11:03 AM CUSTOMER ENGAGEMENT MANAGER): Eat heart-healthy foods. Eat fruits, vegetables, whole [...] before you use any other medicines, including rlat-ndc-oqblloo medicines. Make sure your doctor knows all [...] vomiting. Assessment & Plan (09/27/2023 3:42 PM CUSTOMER ENGAGEMENT MANAGER): Eat heart-healthy foods. Eat fruits, vegetables, whole [...] before you use any other medicines, including lbgb-krg-yrwczhw medicines. Make sure your doctor knows all [...] before you use any other medicines, including zlyi-xbv-ismetsl medicines. Make sure your doctor knows all [...] meds Assessment & Plan (10/05/2023 11:01 AM CUSTOMER ENGAGEMENT MANAGER): Pt has h/o HTN and will need [...] meds Assessment & Plan (09/27/2023 3:43 PM CUSTOMER ENGAGEMENT MANAGER): Pt has h/o HTN and will need [...] (07/06/2021): Assessment & Plan (09/27/2023 3:43 PM CUSTOMER ENGAGEMENT MANAGER): Encouraged to quit smoking - he is [...] prn. Assessment & Plan (10/05/2023 11:00 AM CUSTOMER ENGAGEMENT MANAGER): Meds dispensed. Take as prescribed. Patient was counseled on medication risk, side effects, and possible complications. Patient was counseled on how to properly take the medication and to call with any adverse reactions. Patient stated understanding. Stay active. Watch diet. Follow up prn. Assessment & Plan (09/27/2023 3:43 PM CUSTOMER ENGAGEMENT MANAGER): Meds dispensed. Take as prescribed. Patient was [...] treatment/referral Assessment & Plan (09/27/2023 3:42 PM CUSTOMER ENGAGEMENT MANAGER): Uses diclofenac daily. Declines further treatment/referral Other [...] Sex Assigned at Male 10/01/2021 1:36 PM CUSTOMER ENGAGEMENT MANAGER Legal Sex Male 10:47 AM CDT Gender Identity Male 10/01/2021 1:36 PM CUSTOMER ENGAGEMENT MANAGER Sexual Orientation Not on file Last Filed [...] 01/24/2024 01/23/2019 Dental Cleaning/Exam 03/25/2024 03/25/2023, 01/23/2022 Pneumococcal: Ped (0 to 5 Yrs) and At-Risk Member (6 to 64 Yrs) (1 of 2 - PCV) 03/18/2025 Postponed from 02/12/1988 (Member Declined) Influenza Immunization (Season Ended) 2025 06/28/2012 Tetanus Diphtheria and Pertussis Immunization (2 - [...] complete this topic Zoster Immunization Discontinued Insurance [facility] NO COPAY NB
--- OUTSIDE RECORDS SUMMARY | 2024-12-31 01:50 | XMS_ITS | Clinical Summary ---
Author Organization [facility] Address [facility] [place] [address] Care Team Providers Care Gardening Supervisor Name Role Phone Lena Haq Primary Care Provider [phone] Social History Tobacco Use Types Packs/Day Years [...] 2019 COVID-19 Vaccine (2023-2 5 season) 2024 Meningococcal B Vaccine Aged Out No [...] age to complete this topic Care Teams Gardening Supervisor Relationship Specialty Start Date End Date Lena Haq FNP [address] [place] [address] PCP - General NURSE PRACTITIONER 03/22/24
--- OUTSIDE RECORDS SUMMARY | 2024-12-31 01:50 | XMS_ITS | Continuity of Care Document ---
Author Organization [facility] Address [address] [place] [address] Phone Care Team Providers Care Clinical Nutrition Manager Name Role Phone Pao PT, KEVINT, Marko [...] Diagnoses Date Provider Providers Copied on Encounter [facility], [address], [place], [place], [id number], tel:[phone] [place] Other specified dorsopathies, lumbar regionStiffness of unspecified joint, not elsewhere classifiedMuscle weakness (generalized)Low back pain 9 Pao Zhu. . Referring Provider: Vincenzo Salazar, [address] [facility] [address], [place], [address]. tel:[phone] [facility], [address] [facility] [address], [place], [place], [id number], tel:[phone] [place] Other specified dorsopathies, lumbar regionStiffness of unspecified joint, not elsewhere classifiedMuscle weakness (generalized)Low back pain 9 [facility]. . Referring Provider: Vincenzo Salazar [address] [place] [address] [address], [place], [address]. tel:[phone] [facility] [address] [facility] [address], [place], [place], [id number], tel:[phone] [place] Other specified dorsopathies, lumbar regionStiffness of unspecified joint, not elsewhere classifiedMuscle weakness (generalized)Low back pain 9 [facility]. . Referring Provider: Vincenzo Salazar [address] [place] [address] [address], [place], [address]. tel:[phone] [facility] [address] [address], [place], [place], [id number], tel:[phone] [place] Other specified dorsopathies, lumbar regionStiffness of unspecified joint, not elsewhere classifiedMuscle weakness (generalized)Low back pain 9 [facility] Marko. . Referring Provider: Vincenzo Salazar [address] [place] [address] [address], [place], [address]. tel:[phone] Family History Family Member Type Diagnosis Age At Onset No Information Payers Payer name Insurance type Covered libertarian ID Simon flores(s) R CI [id number] Social History Type Description Quantity Date Captured [...]
[2024-12-31 01:52] LABS: Alanine Aminotransferase 32 U/L (6-50); Albumin Level 4.1 g/dL (3.5-5.1); Alkaline Phosphatase 83 U/L (38-126); Anion Gap 9 mmol/L (4-12); Aspartate Amino Transferase 26 U/L (17-59); Bilirubin,Total 0.6 mg/dL (0.2-1.3); Blood Urea Nitrogen 17 mg/dL (9-20); Calcium 8.7 mg/dL (8.4-10.2); Carbon Dioxide 27 mmol/L (22-30); Chloride 104 mmol/L (98-107); Estimated CRCL calculation 149 ml/min; Estimated Glomerular Filt Rate > 60; Glucose 165 mg/dL (65-110); Potassium 4.2 mmol/L (3.4-5.0); Sodium 140 mmol/L (137-145)
[2024-12-31] MEDS: ALBUTEROL SULFATE NEB 2.5 MG/3 ML INH 5 MG INHALATION (01:56)
[2024-12-31 02:14] LABS: Influenza A QL RT-PCR Negative (Negative); Influenza B QL RT-PCR Negative (Negative); RSV RNA, RT-PCR Negative (Negative); SARS-CoV-2 RNA PCR Negative (Negative)
[2024-12-31 02:59] LABS: NT Pro B Type Natriuretic Pept 62 pg/mL (19.9-100)
--- NOTE | 2024-12-31 03:35 | ED.SOB ---
HPI - SOB/Dyspnea General Chief Complaint: Shortness of Breath/Dyspnea Stated Complaint: SOB, coughing for a couple of days Time Seen by Provider: 12/31/24 01:38 Source: patient Mode of arrival: EMS Limitations: no limitations History of Present Illness HPI Narrative: This is a 54-year-old male, with history of COPD on 1-4 L of supplemental oxygen at home as needed, who is brought in by EMS for shortness of breath. The patient states over the past 2-3 days, he has had increased cough, shortness of breath, dyspnea on exertion and upper respiratory congestion route attributed to his allergies. He states the congestion has prevented in the normal use of his oxygen. He states despite using home rescue inhalers and nebs that he has not had any improvement. EMS reports the patient was 86% on room air. He was given a DuoNeb and Decadron IV in route. The patient states he is beginning to feel improved. He has no other complaints at this time. Related Data Home Medications ?Medication ?Instructions ?Recorded ?Confirmed ?Last Taken ?Type hydrocodone 5 mg-acetaminophen 325 1 tablet PO Q8H pain 11/14/24 11/14/24 Unknown History mg tablet pantoprazole 40 mg tablet,delayed 40 mg PO QAM 11/14/24 11/14/24 11/13/24 History release Allergies Allergy/AdvReac Type Severity Reaction Status Date / Time codeine AdvReac Unknown nightmares, Verified 12/31/24 01:34 extreme internal ear itching Review of Systems Review of Systems: All systems reviewed & are unremarkable except as noted in HPI and below PMFSH Past Medical History Medical History Diabetes Chronic obstructive pulmonary disease Hyperlipidemia Hypertension Seasonal allergies Rheumatoid arthritis Sleep apnea Seizures Tobacco use Surgical History Surgical History History of right knee surgery Has had 5 surgeries total including ACL and meniscus repairs History of left knee surgery 1991-Dr. Erwin, meniscus repair, repair meniscus again by Dr. Mccloud Family History Family History Mother Malignant neoplasm Hypertension Diabetes mellitus Arthritis Father Diabetes mellitus Social History Social History Social History: Surrogate medical decision maker: Yenifer Shwetha, spouse. Code status: Full code. Smoking packs per day: 1.5 Smoking cigarettes per day: 30.0 Years smoked: 45 Smoking pack-years: 67.50 Smoking status: Current every day smoker Tobacco type: cigarettes Second hand tobacco smoke exposure: Yes Alcohol intake: former Alcohol use details: rare Substance use: current Substance use type: marijuana Last use: 09/12/24 Do You Feel Safe in your Home?: Yes Lack of Transportation: YES Lack of Food: Never True Current Housing: I Have Housing Concerned About Future Housing: No Difficulty Paying Gas/Electric Bills: No Difficulty Paying for Meds: YES Currently Unemployed: No Education: High School Diploma/GED Difficulty w/ Childcare or Family Care: No Living arrangements: with family Occupation/Education: occupation Spiritual care concerns: No Exam Narrative: GENERAL: Well-developed, well-nourished, and in no acute distress. HEAD: Normocephalic, atraumatic. EYES: PERRLA and EOMI. CHEST: Expiratory wheeze noted in the bilateral posterior lung castaneda with moderate aeration. No respiratory distress. No rales or rhonchi HEART: Regular rate and rhythm. No murmur heard. Normal peripheral pulses. ABDOMEN: Soft, nontender, nondistended, normal active bowel sounds. EXTREMITIES: Normal range of motion. No edema. SKIN: Warm, dry, no rash. NEURO: Alert and oriented x3. No focal deficit. Moving all 4 limbs spontaneously PSYCH: Normal mood and affect. Course Course Emergency Course: 03:45 - CBC unremarkable. Chemistries within normal limits. COVID, influenza and RSV negative. Chest x-ray by my review is not concerning for acute cardiopulmonary process. EKG unremarkable. After DuoNebs and Decadron by EMS, the patient states he felt at 85% of his normal. After a repeat albuterol neb here, he now feels 95%. He is able a ambulate to the bathroom without difficulty. He is comfortable discharge. Will do so with a course of prednisone and recommendation for primary care follow-up. The patient has a follow-up appointment with pulmonology scheduled tomorrow. I discussed the findings and recommendations with the patient. Discussed return and emergency precautions including signs/symptoms of ACS respiratory distress. The patient voiced understanding and agreement with the plan. All questions answered to his satisfaction. Vital Signs Vital signs: Vital Signs Temperature 97.8 F 12/31/24 01:20 Pulse Rate 87 12/31/24 01:20 Respiratory Rate 17 12/31/24 01:20 Blood Pressure 149/75 H 12/31/24 01:20 Pulse Oximetry 92 12/31/24 01:20 Oxygen Delivery Room Air 12/31/24 01:20 Temperature 97.6 F 12/31/24 02:55 Pulse Rate 88 12/31/24 04:00 Respiratory Rate 22 H 12/31/24 04:00 Blood Pressure 149/74 H 12/31/24 04:00 Pulse Oximetry 94 12/31/24 04:00 Oxygen Delivery Nasal Cannula 12/31/24 02:55 Oxygen Flow Rate 3 12/31/24 02:55 MDM - SOB/Dyspnea MDM Narrative Medical decision making narrative: Plan: Labs, nebs, imaging, EKG reassess Differential Diagnosis Differential diagnosis: Likely acute exacerbation of chronic obstructive airways disease, congestive heart failure, community acquired pneumonia and other (COVID, influenza, RSV, renal failure, metabolic abnormality, pneumothorax, other) Lab Data 12/31/24 01:33 12/31/24 01:33 Labs: Lab Results 12/31/24 Range/Units 01:33 WBC 6.3 (4.5-10.0) K/mm3 RBC 4.65 (4.6-6.20) M/mm3 Hgb 14.6 (14.0-18.0) g/dL Hct 44.2 (42.0-52.0) % MCV 95.1 (80-100) fl MCH 31.4 (26-34) pg MCHC 33.0 (32-36) g/dl RDW 14.8 H (11.5-14.5) % Plt Count 218 (150-375) k/mm3 MPV 10.0 (7.4-10.4) fl Immature Gran % (Auto) 0.3 (0-0.5) % Neut % (Auto) 49.0 (45.5-73.1) % Lymph % (Auto) 26.1 (18.3-44.2) % [place] % (Auto) 15.5 H (2.6-8.5) % Eos % (Auto) 8.5 H (0-4.4) % Baso % (Auto) 0.6 (0.2-1.2) % Lymph # (Auto) 1.65 (0.9-3.2) K/mm3 [place] # (Auto) 1.0 H (0.1-0.6) K/mm3 Eos # (Auto) 0.5 H (0-0.3) K/mm3 Baso # (Auto) 0.0 (0.0-0.1) K/mm3 Abs Immat Gran (auto) 0.02 (0.00-0.031) K/mm3 Absolute Neuts (auto) 3.1 (1.3-6.7) K/mm3 Absolute Nucleated RBC 0.000 (0.0-0.012) K/mm3 Nucleated RBC % 0.0 (0.0-0.2) % Sodium 140 (137-145) mmol/L Potassium 4.2 (3.4-5.0) mmol/L Chloride 104 (98-107) mmol/L Carbon Dioxide 27 (22-30) mmol/L Anion Gap 9 (4-12) mmol/L BUN 17 D (9-20) mg/dL Creatinine 0.84 (0.7-1.3) mg/dL Estim Creat Clear Calc 149 ml/min Estimated GFR > 60 (59 - ) Glucose 165 H (65-110) mg/dL Calcium 8.7 (8.4-10.2) mg/dL Total Bilirubin 0.6 (0.2-1.3) mg/dL AST 26 (17-59) U/L ALT 32 (6-50) U/L Alkaline Phosphatase 83 (38-126) U/L NT-Pro-B Natriuret Pep 62 (19.9-100) pg/mL Total Protein 8.0 (6.3-8.2) g/dL Albumin 4.1 (3.5-5.1) g/dL Influenza A (RT-PCR) Negative (Negative) Influenza B (RT-PCR) Negative (Negative) RSV (RT-PCR) Negative (Negative) SARS-CoV-2 RNA (RT-PCR) Negative (Negative) ECG Data EKG #1: Attestation: I personally reviewed and interpreted this ECG as follows: ECG completion date: 12/31/24 ECG completion time: 01:28 Prior ECG tracings: available for review Interpretation: Sinus rhythm, rate 88, normal axis, baseline artifact, no ST segment elevations or T-wave inversions concerning for ischemia, normal intervals with QTC of 446. Compared to EKG done in October 2024, atrial flutter has resolved. Discharge Plan Discharge Clinical Impression: COPD exacerbation Patient Disposition: Home Condition: Stable Instructions: Antibiotic Form Additional Instructions: You were seen in the emergency department. An x-ray was not concerning for pneumonia. Your labs were within normal limits. You tested negative for COVID, influenza and RSV. I suspect a COPD exacerbation. I recommend albuterol nebs every 2 hours for 3 doses while awake, steroids and follow-up with your primary care doctor. If you develop chest pain, no worsening shortness of breath, loss of consciousness, or if you have other emergent concerns for life, limb, or eyesight, return to the emergency department. Patient Language: Vincentian Prescriptions: New prednisone 20 mg tablet 20 mg PO DAILY Qty: 4 0RF No Action atorvastatin 40 mg Tablet 80 mg PO HS Qty: 30 0RF lisinopril 30 mg tablet 30 mg PO DAILY Qty: 30 0RF tiotropium bromide [Spiriva with HandiHaler] 18 mcg capsule, w/inhalation device 1 cap inhalation DAILY Qty: 30 0RF Rx Instructions: puncture 1 cap using device; one dose = 2 inhalations (DME) nebulizer and compressor Device See Rx Instructions .Route Qty: 1 0RF Rx Instructions: As directed ipratropium bromide 0.02 % solution 2.5 ml inhalation Q6H PRN (Reason: shortness of breath or wheezing) Qty: 75 0RF albuterol sulfate 90 mcg/actuation aerosol powdr breath activated 2 inh inhalation Q4H PRN (Reason: shortness of breath or wheezing) Qty: 1 0RF fluticasone propion-salmeterol [Advair Diskus] 250-50 mcg/dose blister with device 1 inh inhalation Q12H Qty: 60 0RF pantoprazole 40 mg tablet,delayed release (DR/EC) 40 mg PO QAM hydrocodone-acetaminophen 5-325 mg tablet 1 tablet PO Q8H dextrose [Glutose-15] 40 % Gel 15 g PO PRN PRN (Reason: Hypoglycemia) Qty: 30 0RF metoprolol tartrate 50 mg Tablet 50 mg PO Q12HR Qty: 60 1RF levalbuterol HCl 1.25 mg/3 mL Solution For Nebulization 1.25 mg inhalation Q6HRT PRN (Reason: Wheezing) Qty: 90 0RF diltiazem HCl 60 mg Tablet 90 mg PO Q6HR Qty: 180 1RF glipizide 5 mg Tablet 5 mg PO DAILY@0630 Qty: 30 1RF Eliquis 5 mg Tablet 5 mg PO Q12HR Qty: 60 1RF guaifenesin [Mucus Relief ER] 600 mg Tablet Extended Release 12hr 1,200 mg PO Q12HR Qty: 60 0RF metformin 500 mg tablet 500 mg PO BIDWMEAL Qty: 60 1RF nicotine [Nicoderm CQ] 21 mg/24 hr Patch 24 Hour 1 patch transdermal DAILY Qty: 28 0RF Follow-up/Referrals: Vincenzo Salazar MD [Primary Care Provider] - 1 Week Time of Disposition: 03:45
== END 2024-12-31 04:01 | disposition home or self-care (01) ==
PROVIDERS: Emergency Provider Preventive Medicine Aerospace Medicine; PCP Family Medicine
DX: J44.1 Chronic obstructive pulmonary disease with (acute) exacerbation (principal); Z20.822 Contact with and (suspected) exposure to COVID-19; F17.210 Nicotine dependence, cigarettes, uncomplicated; E11.9 Type 2 diabetes mellitus without complications; E78.5 Hyperlipidemia, unspecified; I10 Essential (primary) hypertension; G40.909 Epilepsy, unspecified, not intractable, without status epilepticus; M06.9 Rheumatoid arthritis, unspecified
CPT/HCPCS: 36415; 71045; 80053; 83880; 85025; 87637; 93005; 94640; 99284

== ENCOUNTER 2025-01-16 02:15 | Emergency (ER) | payer BC, SELFPAY ==
[2025-01-16] VITALS (11 sets, daily range): BP systolic 144–155; BP diastolic 82–96; PULSE 72–94; RESP 14–22; TEMP 37; O2SAT 90–98
--- NOTE | ~2025-01-16 | XR_ITS ---
Portable chest x-ray Comparison: 12/31/2024 Clinical History: Dyspnea Findings: Lungs are clear, without focal consolidation or pleural effusion. Cardiomediastinal silho uette is stable. Bones and soft tissues are unremarkable. Impression: Normal chest. Reviewed, dictated and finalized at [facility]. Impression: Normal chest.
--- OUTSIDE RECORDS SUMMARY | 2025-01-16 02:18 | XMS_ITS | Continuity of Care Document ---
Author Organization [facility] Address [address] [place] [address] Phone Care Team Providers Care Manager Clinical Informatics Name Role Phone Pao PT, KEVINT, Marko [...] Diagnoses Date Provider Providers Copied on Encounter [facility], [address], [place], [place], [id number], tel:[phone] [place] Other specified dorsopathies, lumbar regionStiffness of unspecified joint, not elsewhere classifiedMuscle weakness (generalized)Low back pain 9 Pao Zhu. . Referring Provider: Vincenzo Salazar, [address] [facility] [address], [place], [address]. tel:[phone] [facility], [address] [facility] [address], [place], [place], [address], tel:[phone] [place] Other specified dorsopathies, lumbar regionStiffness of unspecified joint, not elsewhere classifiedMuscle weakness (generalized)Low back pain 9 [facility]. . Referring Provider: Vincenzo Salazar [address] [place] [address] [address], [place], [address]. tel:[phone] [facility] [address] [facility] [address], [place], [place], [address], tel:[phone] [place] Other specified dorsopathies, lumbar regionStiffness of unspecified joint, not elsewhere classifiedMuscle weakness (generalized)Low back pain 9 [facility] Zhu. . Referring Provider: Vincenzo Salzaar [address] [place] [address] [address], [place], [address]. tel:[phone] [facility] [address] [address], [place], [place], [address], tel:[phone] [place] Other specified dorsopathies, lumbar regionStiffness of unspecified joint, not elsewhere classifiedMuscle weakness (generalized)Low back pain 9 [facility] Marko. . Referring Provider: Vincenzo Salazar [address] [place] [address] [address], [place], [address]. tel:[phone] Family History Family Member Type Diagnosis Age At Onset No Information Payers Payer name Insurance type Covered libertarian ID Simon flores(s) R CI [id number] Social History Type Description Quantity Date Captured [...]
--- OUTSIDE RECORDS SUMMARY | 2025-01-16 02:18 | XMS_ITS | Clinical Summary ---
Author Organization [facility] Address [address] [place] [id number] Phone [email or web address] - [email or web address] Care Team Providers Care Betting Agency Counter Clerk Name Role Phone Unavailable Primary Care Provider Unavailabl e Allergies Active Allergy Reactions Criticality Noted Date Comments Codeine 10/07/2021 Lucid dreaming, itchy ears Medications aspirin (ST SHIRA) 81 MG EC tablet Take 81 mg by mouth 1 (one) time each day. Active Morris-3 Fatty Acids (Fish Oil) 1000 MG capsule [...] complication, without long-term current use of insulin ([facility]) Take 1 tablet (500 mg total) by mouth in the morning and 1 tablet (500 mg total) in the evening. Take with meals. 180 tablet 4 03/18/20 25 Active Active Problems Problem Noted Date Diagnosed Date Plantar fasciitis, left 06/14/2023 Assessment & Plan (09/27/2023 3:45 PM FILE SYSTEM INSTALLER): Has been following with podiatry Doing much [...] may use the free smart phone andrews abeopal to help track calories and try to reduce by 15% every 4 weeks. You should also work on reducing your total portion sizes. You should be exercising about 30 minutes every day with cardio work outs. You should strive to avoid regular soda, juices and alcohol. Assessment & Plan (09/27/2023 3:44 PM FILE SYSTEM INSTALLER): Pt has an elevated BMI over 30 Body mass index is BMI Readings from Last 1 Encounters: 09/27/23 42.40 kg/m and you will need to work hard on reducing carbohydrates and total calories. You may use the free smart phone andrews ZhenXin to help track calories and try to [...] may use the free smart phone andrews ZhenXin to help track calories and try to [...] before you use any other medicines, including ykin-mqp-phvnobr medicines. Make sure your doctor knows all [...] before you use any other medicines, including dzxg-wmh-tcvpkhx medicines. Make sure your doctor knows all [...] appt Assessment & Plan (10/05/2023 11:03 AM FILE SYSTEM INSTALLER): Eat heart-healthy foods. Eat fruits, vegetables, whole [...] before you use any other medicines, including qnep-xjr-hgcngxf medicines. Make sure your doctor knows all [...] vomiting. Assessment & Plan (09/27/2023 3:42 PM FILE SYSTEM INSTALLER): Eat heart-healthy foods. Eat fruits, vegetables, whole [...] before you use any other medicines, including qcbk-kga-zkpvtsp medicines. Make sure your doctor knows all [...] before you use any other medicines, including cwvg-szg-kmsskvi medicines. Make sure your doctor knows all [...] meds Assessment & Plan (10/05/2023 11:01 AM FILE SYSTEM INSTALLER): Pt has h/o HTN and will need [...] meds Assessment & Plan (09/27/2023 3:43 PM FILE SYSTEM INSTALLER): Pt has h/o HTN and will need [...] (07/06/2021): Assessment & Plan (09/27/2023 3:43 PM FILE SYSTEM INSTALLER): Encouraged to quit smoking - he is [...] prn. Assessment & Plan (10/05/2023 11:00 AM FILE SYSTEM INSTALLER): Meds dispensed. Take as prescribed. Patient was counseled on medication risk, side effects, and possible complications. Patient was counseled on how to properly take the medication and to call with any adverse reactions. Patient stated understanding. Stay active. Watch diet. Follow up prn. Assessment & Plan (09/27/2023 3:43 PM FILE SYSTEM INSTALLER): Meds dispensed. Take as prescribed. Patient was [...] treatment/referral Assessment & Plan (09/27/2023 3:42 PM FILE SYSTEM INSTALLER): Uses diclofenac daily. Declines further treatment/referral Other [...] Sex Assigned at Male 10/01/2021 1:36 PM FILE SYSTEM INSTALLER Legal Sex Male 10:47 AM CDT Gender Identity Male 10/01/2021 1:36 PM FILE SYSTEM INSTALLER Sexual Orientation Not on file Last Filed [...] complete this topic Zoster Immunization Discontinued Insurance [facility] NO COPAY NB
--- OUTSIDE RECORDS SUMMARY | 2025-01-16 02:18 | XMS_ITS | Clinical Summary ---
Author Organization [facility] Address [address] [place] [address] Care Team Providers Care Sales Special Agent Name Role Phone Lena Haq Primary Care Provider [phone] Social History Tobacco Use Types Packs/Day Years [...] of 3 - 19+ 3-dose series) 02/12/1988 Pneumococcal Vaccine: 50+ Ye ars (1 of 1 - PCV) 2019 Zoster Vaccines (1 of 2) 2019 COVID-19 [...] age to complete this topic Care Teams Sales Special Agent Relationship Specialty Start Date End Date Lena Haq FNP [address] [place] [address] PCP - General NURSE PRACTITIONER 03/22/24
[2025-01-16 02:44] LABS: Basophils Absolute Auto 0.1 K/mm3 (0.0-0.1); Basophils Percent Auto 0.7 % (0.2-1.2); Eosinophils Absolute Auto 0.6 K/mm3 (0-0.3); Eosinophils Percent Auto 9.4 % (0-4.4); Hematocrit 43.8 % (42.0-52.0); Hemoglobin 14.2 g/dL (14.0-18.0); Immature Granulocyte Absolute 0.02 K/mm3 (0.00-0.031); Immature Granulocyte Percent A 0.3 % (0-0.5); Lymphocytes Absolute Auto 1.54 K/mm3 (0.9-3.2); Lymphocytes Percent Auto 22.6 % (18.3-44.2); Mean Corpuscular HGB Conc 32.4 g/dl (32-36); Mean Corpuscular Hemoglobin 31.4 pg (26-34); Mean Corpuscular Volume 96.9 fl (80-100); Mean Platelet Volume 9.7 fl (7.4-10.4); Monocytes Absolute Auto 0.7 K/mm3 (0.1-0.6); Neutrophils Absolute Auto 3.9 K/mm3 (1.3-6.7); Platelet Count Result 243 k/mm3 (150-375); Red Blood Count 4.52 M/mm3 (4.6-6.20); Red Cell Distribution Width 13.8 % (11.5-14.5); White Blood Count 6.8 K/mm3 (4.5-10.0)
[2025-01-16] MEDS: MAGNESIUM SULF 2 GM/WATER 50ML 2 GM/50 ML BAG IVPB (02:50)
[2025-01-16] MEDS: dexAMETHasone SOD PHOS INJ 10 MG/ML 1 ML VIAL IV PUSH (02:50)
[2025-01-16] MEDS: SODIUM CHLORIDE 0.9% IV 1,000 ML 999 ML IV CONT (02:50)
[2025-01-16 02:53] LABS: Alanine Aminotransferase 42 U/L (6-50); Albumin Level 4.2 g/dL (3.5-5.1); Alkaline Phosphatase 102 U/L (38-126); Anion Gap 8 mmol/L (4-12); Aspartate Amino Transferase 21 U/L (17-59); Bilirubin,Total 0.5 mg/dL (0.2-1.3); Blood Urea Nitrogen 14 mg/dL (9-20); Calcium 8.9 mg/dL (8.4-10.2); Carbon Dioxide 29 mmol/L (22-30); Chloride 104 mmol/L (98-107); Estimated CRCL calculation 158 ml/min; Estimated Glomerular Filt Rate > 60; Glucose 168 mg/dL (65-110); Magnesium 1.8 mg/dL (1.6-2.3); Sodium 141 mmol/L (137-145)
[2025-01-16 03:11] LABS: Alveolar/Arterial O2 Gradient 139.9 mmHg; Base Excess ABG 0.6 mEq/l (+/-2.0); Fractional Inspired Oxygen 36 %; HCO3 ABG 26.8 mEq/l (22.0-26.0); Oxygen Content ABG 18.1 %vol (16.0-22.0); Oxygen Saturation ABG 89.4 % (95.0-100.0); Oxyhemoglobin 89.1 % THb (90.0-100.0); PCO2 ABG 49.4 mmHg (35.0-45.0); PO2 ABG 59.5 mmHg (80.0-100.0); PO2 FiO2 Ratio Arterial Blood 1.65 %; Total Hemoglobin 14.5 g/dL (12.0-18.0); pH ABG 7.353 (7.350-7.450)
[2025-01-16 03:13] LABS: Device NASAL CANNULA; Site Drawn LEFT RADIAL
[2025-01-16 03:19] LABS: Influenza A QL RT-PCR Negative (Negative); Influenza B QL RT-PCR Negative (Negative); RSV RNA, RT-PCR Negative (Negative); SARS-CoV-2 RNA PCR Negative (Negative)
--- OUTSIDE RECORDS SUMMARY | 2025-01-16 03:43 | XMS_ITS | Clinical Summary ---
Author Organization [facility] Address [address] [place] [address] Care Team Providers Care Evp Of Products & Co Founder Name Role Phone Lena Haq Primary Care Provider [phone] Social History Tobacco Use Types Packs/Day Years [...] age to complete this topic Care Teams [employer] Founder Relationship Specialty Start Date End Date Lena Haq FNP [address] [place] [address] PCP - General NURSE PRACTITIONER 03/22/24
--- OUTSIDE RECORDS SUMMARY | 2025-01-16 03:43 | XMS_ITS | Continuity of Care Document ---
Author Organization [facility] Address [address] [place] [address] Phone Care Team Providers Care Sanding Machine Operator Or Tender Name Role Phone Pao PT, KEVINT, Marko [...] Diagnoses Date Provider Providers Copied on Encounter [facility], [address], [place], [place], [id number], tel:[phone] [place] Other specified dorsopathies, lumbar regionStiffness of unspecified joint, not elsewhere classifiedMuscle weakness (generalized)Low back pain 9 Pao Zhu. . Referring Provider: Vincenzo Salazar, [address] [facility] [address], [place], [address]. tel:[phone] [facility], [address] [facility] [address], [place], [place], [id number], tel:[phone] [place] Other specified dorsopathies, lumbar regionStiffness of unspecified joint, not elsewhere classifiedMuscle weakness (generalized)Low back pain 9 [facility] . Referring Provider: Vincenzo Salazar [address] [place] [address] [address], [place], [address]. tel:[phone] [facility] [address] [facility] [address], [place], [place], [id number], tel:[phone] [place] Other specified dorsopathies, lumbar regionStiffness of unspecified joint, not elsewhere classifiedMuscle weakness (generalized)Low back pain 9 [facility] . Referring Provider: Vincenzo Salazar [address] [place] [address] [address], [place], [address]. tel:[phone] [facility] [address] [address], [place], [place], [id number], tel:[phone] [place] Other specified dorsopathies, lumbar regionStiffness of unspecified joint, not elsewhere classifiedMuscle weakness (generalized)Low back pain 9 [facility] Marko. . Referring Provider: Vincenzo Salazar [address] [place] [address] [address], [place], [address]. tel:[phone] Family History Family Member Type Diagnosis Age At Onset No Information Payers Payer name Insurance type Covered libertarian ID Simon flores(s) R CI [id number] Social History Type Description Quantity Date Captured [...]
--- OUTSIDE RECORDS SUMMARY | 2025-01-16 03:43 | XMS_ITS | Clinical Summary ---
Author Organization [facility] Address [address] [place] [address] Phone [email or web address] Care Team Providers Care Wire Mill Operator Name Role Phone Unavailable Primary Care Provider Unavailabl e Allergies Active Allergy Reactions Criticality Noted Date Comments Codeine 10/07/2021 Lucid dreaming, itchy ears Medications aspirin (ST SHIRA) 81 MG EC tablet Take 81 mg by mouth 1 (one) time each day. Active Luck-3 Fatty Acids (Fish Oil) 1000 MG capsule [...] complication, without long-term current use of insulin ([facility]) Take 1 tablet (500 mg total) by mouth in the morning and 1 tablet (500 mg total) in the evening. Take with meals. 180 tablet 4 03/18/20 25 Active Active Problems Problem Noted Date Diagnosed Date Plantar fasciitis, left 06/14/2023 Assessment & Plan (09/27/2023 3:45 PM CHUCKING MACHINE SET UP OPERATOR TOOL): Has been following with podiatry Doing much [...] may use the free smart phone andrews NuoDBpal to help track calories and try to reduce by 15% every 4 weeks. You should also work on reducing your total portion sizes. You should be exercising about 30 minutes every day with cardio work outs. You should strive to avoid regular soda, juices and alcohol. Assessment & Plan (09/27/2023 3:44 PM CHUCKING MACHINE SET UP OPERATOR TOOL): Pt has an elevated BMI over 30 Body mass index is BMI Readings from Last 1 Encounters: 09/27/23 42.40 kg/m and you will need to work hard on reducing carbohydrates and total calories. You may use the free smart phone andrews [employer] to help track calories and try to [...] may use the free smart phone andrews [employer] to help track calories and try to [...] before you use any other medicines, including yizm-aoc-cedhwux medicines. Make sure your doctor knows all [...] before you use any other medicines, including zloq-sse-kgnreec medicines. Make sure your doctor knows all [...] appt Assessment & Plan (10/05/2023 11:03 AM CHUCKING MACHINE SET UP OPERATOR TOOL): Eat heart-healthy foods. Eat fruits, vegetables, whole [...] before you use any other medicines, including txbi-fxh-lwakyjl medicines. Make sure your doctor knows all [...] vomiting. Assessment & Plan (09/27/2023 3:42 PM CHUCKING MACHINE SET UP OPERATOR TOOL): Eat heart-healthy foods. Eat fruits, vegetables, whole [...] before you use any other medicines, including hwxw-smx-kismbsf medicines. Make sure your doctor knows all [...] before you use any other medicines, including kuil-yef-rvubzeg medicines. Make sure your doctor knows all [...] meds Assessment & Plan (10/05/2023 11:01 AM CHUCKING MACHINE SET UP OPERATOR TOOL): Pt has h/o HTN and will need [...] meds Assessment & Plan (09/27/2023 3:43 PM CHUCKING MACHINE SET UP OPERATOR TOOL): Pt has h/o HTN and will need [...] (07/06/2021): Assessment & Plan (09/27/2023 3:43 PM CHUCKING MACHINE SET UP OPERATOR TOOL): Encouraged to quit smoking - he is [...] prn. Assessment & Plan (10/05/2023 11:00 AM CHUCKING MACHINE SET UP OPERATOR TOOL): Meds dispensed. Take as prescribed. Patient was counseled on medication risk, side effects, and possible complications. Patient was counseled on how to properly take the medication and to call with any adverse reactions. Patient stated understanding. Stay active. Watch diet. Follow up prn. Assessment & Plan (09/27/2023 3:43 PM CHUCKING MACHINE SET UP OPERATOR TOOL): Meds dispensed. Take as prescribed. Patient was [...] treatment/referral Assessment & Plan (09/27/2023 3:42 PM CHUCKING MACHINE SET UP OPERATOR TOOL): Uses diclofenac daily. Declines further treatment/referral Other [...] Sex Assigned at Male 10/01/2021 1:36 PM CHUCKING MACHINE SET UP OPERATOR TOOL Legal Sex Male 10:47 AM CDT Gender Identity Male 10/01/2021 1:36 PM CHUCKING MACHINE SET UP OPERATOR TOOL Sexual Orientation Not on file Last Filed [...] complete this topic Zoster Immunization Discontinued Insurance [facility] NO COPAY NB
--- NOTE | 2025-01-16 04:21 | ED_ITS ---
HPI - General Adult General Chief complaint: Shortness of Breath/Dyspnea Stated complaint: oxygen machine tanked out so my oxygen was 82% Time Seen by Provider: 01/16/25 02:25 History of Present Illness HPI narrative: This is a 54-year-old male with history of COPD on 4 L p.r.n. home oxygen presenting for difficulty breathing. Patient is over last day he has had progressively worse shortness of breath. At times he has had increased his home oxygen. He has run out of his albuterol nebulizers. He denies fevers chills chest pain productive cough or lower extremity edema. Related Data Home Medications ?Medication ?Instructions ?Recorded ?Confirmed ?Last Taken ?Type hydrocodone 5 mg-acetaminophen 325 1 tablet PO Q8H pain 11/14/24 01/13/25 Unknown History mg tablet pantoprazole 40 mg tablet,delayed 40 mg PO QAM 11/14/24 01/13/25 11/13/24 History release cholecalciferol (vitamin D3) 125 125 mcg PO DAILY 01/13/25 01/13/25 Unknown History mcg (5,000 unit) tablet (Vitamin D3) diltiazem HCl 360 mg 360 mg PO DAILY 01/13/25 01/13/25 Unknown History capsule,extended release 24 hr (Cardizem CD) omega 9-jba-hwq-fish oil 1,200 mg 1 cap PO DAILY 01/13/25 01/13/25 Unknown History (144 mg-216 mg) capsule (Fish Oil) Allergies Allergy/AdvReac Type Severity Reaction Status Date / Time codeine AdvReac Unknown nightmares, Verified 01/13/25 14:06 extreme internal ear itching PMFSH Past Medical History Medical History Diabetes Chronic obstructive pulmonary disease Hyperlipidemia Hypertension Seasonal allergies Rheumatoid arthritis Sleep apnea Seizures Tobacco use Surgical History Surgical History History of right knee surgery Has had 5 surgeries total including ACL and meniscus repairs History of left knee surgery 1991-Dr. Erwin, meniscus repair, repair meniscus again by Dr. Mccloud Family History Family History Mother Malignant neoplasm Hypertension Diabetes mellitus Arthritis Father Diabetes mellitus Social History Social History Social History: Surrogate medical decision maker: Yenifer Tadeo, spouse. Code status: Full code. Smoking packs per day: 1.5 Smoking cigarettes per day: 30.0 Years smoked: 45 Smoking pack-years: 67.50 Smoking status: Current every day smoker Tobacco type: cigarettes Second hand tobacco smoke exposure: Yes Alcohol intake: former Alcohol use details: rare Substance use: current Substance use type: marijuana Last use: 09/12/24 Do You Feel Safe in your Home?: Yes Lack of Transportation: YES Lack of Food: Never True Current Housing: I Have Housing Concerned About Future Housing: No Difficulty Paying Gas/Electric Bills: No Difficulty Paying for Meds: YES Currently Unemployed: No Education: High School Diploma/GED Difficulty w/ Childcare or Family Care: No Living arrangements: with family Occupation/Education: occupation Spiritual care concerns: No Exam 2 Narrative: APPEARANCE: No apparent distress. Head: atraumatic. EYES: EOMI, NOSE: Atraumatic NECK: Trachea midline RESPIRATORY: Tachypneic, scattered wheezing, speaking full sentences CARDIOVASCULAR: RRR, no peripheral edema ABDOMINAL: Non-distended soft nontender MUSCULOSKELETAl: No obvious deformities NEURO: Alert. Moving 4/4 extremities SKIN:: Warm, dry. Normal color PSYCHIATRIC: Normal affect Course Vital Signs Vital signs: Vital Signs Temperature 98.6 F 01/16/25 02:20 Pulse Rate 94 01/16/25 02:20 Respiratory Rate 19 01/16/25 02:20 Blood Pressure 147/85 H 01/16/25 02:20 Pulse Oximetry 90 01/16/25 02:20 Oxygen Delivery Nasal Cannula 01/16/25 02:20 Oxygen Flow Rate 4 01/16/25 02:20 Temperature 98.6 F 01/16/25 02:20 Pulse Rate 78 01/16/25 04:05 Respiratory Rate 20 01/16/25 04:05 Blood Pressure 147/85 H 01/16/25 02:20 Pulse Oximetry 90 01/16/25 02:20 Oxygen Delivery Nasal Cannula 01/16/25 02:20 Oxygen Flow Rate 01/16/25 02:20 Medical Decision Making MDM Narrative Medical decision making narrative: -Course: 54-year-old male history of COPD on home oxygen presenting for increased difficulty breathing. Given hour long breathing treatment, dexamethasone, and magnesium. Respiratory status improved significantly. Patient was able ambulate without oxygen without desaturating. Discussed admission versus discharge and the patient would like to be discharged home. Patient will be provided albuterol nebulizers and given primary care follow-up. Given strict return precautions. -DDX includes but is not limited to: COPD exacerbation, pneumonia, CHF, viral syndrome -Independent interpretation of studies: Labs imaging reviewed ABG showed compensated hypercapnia Viral swabs negative Chest x-ray clear. Official read will occur in the a.m.. Vital Signs Vital Signs: Vital Signs Temperature 98.6 F 01/16/25 02:20 Pulse Rate 94 01/16/25 02:20 Respiratory Rate 19 01/16/25 02:20 Blood Pressure 147/85 H 01/16/25 02:20 Pulse Oximetry 90 01/16/25 02:20 Oxygen Delivery Nasal Cannula 01/16/25 02:20 Oxygen Flow Rate 4 01/16/25 02:20 Temperature 98.6 F 01/16/25 02:20 Pulse Rate 78 01/16/25 04:05 Respiratory Rate 20 01/16/25 04:05 Blood Pressure 147/85 H 01/16/25 02:20 Pulse Oximetry 90 01/16/25 02:20 Oxygen Delivery Nasal Cannula 01/16/25 02:20 Oxygen Flow Rate 4 01/16/25 02:20 Lab Data 01/16/25 02:32 01/16/25 02:32 Labs: Lab Results 01/16/25 Range/Units 02:32 WBC 6.8 (4.5-10.0) K/mm3 RBC 4.52 L (4.6-6.20) M/mm3 Hgb 14.2 (14.0-18.0) g/dL Hct 43.8 (42.0-52.0) % MCV 96.9 (80-100) fl MCH 31.4 (26-34) pg MCHC 32.4 (32-36) g/dl RDW 13.8 (11.5-14.5) % Plt Count 243 (150-375) k/mm3 MPV 9.7 (7.4-10.4) fl Immature Gran % (Auto) 0.3 (0-0.5) % Neut % (Auto) 57.0 (45.5-73.1) % Lymph % (Auto) 22.6 (18.3-44.2) % [place] % (Auto) 10.0 H (2.6-8.5) % Eos % (Auto) 9.4 H (0-4.4) % Baso % (Auto) 0.7 (0.2-1.2) % Lymph # (Auto) 1.54 (0.9-3.2) K/mm3 [place] # (Auto) 0.7 H (0.1-0.6) K/mm3 Eos # (Auto) 0.6 H (0-0.3) K/mm3 Baso # (Auto) 0.1 (0.0-0.1) K/mm3 Abs Immat Gran (auto) 0.02 (0.00-0.031) K/mm3 Absolute Neuts (auto) 3.9 (1.3-6.7) K/mm3 Absolute Nucleated RBC 0.000 (0.0-0.012) K/mm3 Nucleated RBC % 0.0 (0.0-0.2) % Sodium 141 (137-145) mmol/L Potassium 4.0 (3.4-5.0) mmol/L Chloride 104 (98-107) mmol/L Carbon Dioxide 29 (22-30) mmol/L Anion Gap 8 (4-12) mmol/L BUN 14 (9-20) mg/dL Creatinine 0.79 (0.7-1.3) mg/dL Estim Creat Clear Calc 158 ml/min Estimated GFR > 60 (59 - ) Glucose 168 H (65-110) mg/dL Calcium 8.9 (8.4-10.2) mg/dL Magnesium 1.8 (1.6-2.3) mg/dL Total Bilirubin 0.5 (0.2-1.3) mg/dL AST 21 (17-59) U/L ALT 42 (6-50) U/L Alkaline Phosphatase 102 (38-126) U/L Total Protein 8.0 (6.3-8.2) g/dL Albumin 4.2 (3.5-5.1) g/dL Influenza A (RT-PCR) Negative (Negative) Influenza B (RT-PCR) Negative (Negative) RSV (RT-PCR) Negative (Negative) SARS-CoV-2 RNA (RT-PCR) Negative (Negative) ABG Data ABG results: 01/16/25 02:54 Puncture Site Left radial ABG pH 7.353 ABG pCO2 49.4 H ABG pO2 59.5 L ABG PO2/FiO2 Ratio 1.65 ABG HCO3 26.8 H ABG O2 Saturation 89.4 L ABG O2 Content 18.1 ABG Base Excess 0.6 A-a Gradient 139.9 Oxyhemoglobin 89.1 L Total Hemoglobin 14.5 O2 Delivery Device Nasal cannula O2 Liters/Min 4.0 FiO2 36 Discharge Plan Discharge Clinical Impression: COPD (chronic obstructive pulmonary disease) Patient Disposition: Home Condition: Stable Instructions: Antibiotic Form, COPD (Chronic Obstructive Pulmonary Disease) (DC) Additional Instructions: You were seen in the emergency department for difficulty breathing. He had a COPD exacerbation. Please take your nebulizers as instructed. Complete a course of steroids and antibiotics. Please stop smoking and exposing herself to secondhand smoke. Return if you feel your condition is getting worse, such as worsening shortness of breath, chest pain fevers or productive cough. Follow-up with primary care physician. Patient Language: Setswana Prescriptions: New doxycycline hyclate 100 mg capsule 100 mg PO BID Qty: 14 0RF prednisone 50 mg tablet 50 mg PO DAILY Qty: 5 0RF No Action diltiazem HCl [Cardizem CD] 360 mg capsule,extended release 24hr 360 mg PO DAILY omega 4-fim-mgz-fish oil [Fish Oil] 1,200 (144-216) mg capsule 1 cap PO DAILY cholecalciferol (vitamin D3) [Vitamin D3] 125 mcg (5,000 unit) tablet 125 mcg PO DAILY prednisone 20 mg tablet 20 mg PO DAILY Qty: 4 0RF atorvastatin 40 mg Tablet 80 mg PO HS Qty: 30 0RF lisinopril 30 mg tablet 30 mg PO DAILY Qty: 30 0RF tiotropium bromide [Spiriva with HandiHaler] 18 mcg capsule, w/inhalation device 1 cap inhalation DAILY Qty: 30 0RF Rx Instructions: puncture 1 cap using device; one dose = 2 inhalations (DME) nebulizer and compressor Device See Rx Instructions .Route Qty: 1 0RF Rx Instructions: As directed albuterol sulfate 90 mcg/actuation aerosol powdr breath activated 2 inh inhalation Q4H PRN (Reason: shortness of breath or wheezing) Qty: 1 0RF pantoprazole 40 mg tablet,delayed release (DR/EC) 40 mg PO QAM hydrocodone-acetaminophen 5-325 mg tablet 1 tablet PO Q8H dextrose [Glutose-15] 40 % Gel 15 g PO PRN PRN (Reason: Hypoglycemia) Qty: 30 0RF metoprolol tartrate 50 mg Tablet 50 mg PO Q12HR Qty: 60 1RF glipizide 5 mg Tablet 5 mg PO DAILY@0630 Qty: 30 1RF Eliquis 5 mg Tablet 5 mg PO Q12HR Qty: 60 1RF guaifenesin [Mucus Relief ER] 600 mg Tablet Extended Release 12hr 1,200 mg PO Q12HR Qty: 60 0RF metformin 500 mg tablet 500 mg PO BIDWMEAL Qty: 60 1RF nicotine [Nicoderm CQ] 21 mg/24 hr Patch 24 Hour 1 patch transdermal DAILY Qty: 28 0RF levalbuterol HCl 1.25 mg/3 mL solution for nebulization 1.25 mg inhalation TID PRN (Reason: shortness of breath or wheezing) Qty: 270 0RF Follow-up/Referrals: Vincenzo Salazar MD [Primary Care Provider] -
[2025-01-16] MEDS: IPRATROPIUM 0.5 MG/ALBUTEROL SULFATE 2.5 MG AMPUL.NEB 3 ML 12 ML INHALATION ×3 (04:27→04:29)
== END 2025-01-16 04:48 | disposition home or self-care (01) ==
PROVIDERS: Emergency Provider Emergency Medicine; PCP Family Medicine
DX: J44.9 Chronic obstructive pulmonary disease, unspecified (principal); E11.9 Type 2 diabetes mellitus without complications; E78.5 Hyperlipidemia, unspecified; I10 Essential (primary) hypertension; M06.9 Rheumatoid arthritis, unspecified; F17.210 Nicotine dependence, cigarettes, uncomplicated; Z20.822 Contact with and (suspected) exposure to COVID-19
CPT/HCPCS: 36415; 36600; 71045; 80053; 82805; 83735; 85018; 85025; 87637; 94640; 96361; 96365; 96374; 96375; 99284; J1100; J3475; J7030

== ENCOUNTER 2025-01-22 05:28 | Outpatient (CLI) | payer BC, SELFPAY ==
--- NOTE | 2025-01-13 14:04 | PC.NURSE ---
Pre Radiology instructions Report to the outpatient ingrid jay on date _14-08-5045_ at time _0900_ for procedure Time: _1100_ YOU MAY BE MONITORED AT HOSPITAL FOR UP TO 4 HOURS AFTER YOUR PROCEDURE. A visitor will be allowed to accompany the patient into the hospital. You and your visitor will be asked to self-screen and do not enter if you have any COVID symptoms. A mask is OPTIONAL within the hospital. Patients are to have no food or drink 6 hours prior to procedure time Driving will be restricted after the procedure, you must have a person to drive you home. Labs will be drawn in preop area and once reviewed, you will be taken to radiology area for procedure. When the procedure is completed, you will be taken to outpatient where you will be monitored for several hours. You may have one visitor in this area. Other than holding anti-coagulants, patient may take other medication(s) as scheduled. Prior to your appointment date patients are instructed to hold anti-coagulants after discussing with ordering provider to stop. If unable to discontinue anti-coagulants please notify radiologist. ? No aspirin or warfarin (Coumadin) for 7 days prior to the procedure. ? No clopidogrel (Plavix), ticagrelor (Brilinta), prasugrel (Effient) or dabigatran (Pradaxa) for 5 days prior to the procedure. ? No rivaroxaban (Xarelto), apixaban (Eliquis), dipyridamole (Aggrenox or Persantine) or cilostazol (Pletal) for 2 days prior to the procedure. Medications to discontinue per physician: ___Eliquis Date to take last dose: ____[id number] Please leave all valuables, including medications, at home the day of procedure. The hospital will not accept responsibility for valuables. Wear comfortable, loose fitting clothing.? Follow any additional instructions given to you from ordering provider. Telephone instructions given to __Ronnie__and asked if any additional questions and then verbalized understanding. Patient advised to call scheduling provider office or registration scheduling [phone] if any additional questions.
[2025-01-13 14:13] VITALS: BMI 40.6
--- NOTE | ~2025-01-22 | CT_ITS ---
CLINICAL INDICATION: 54-year-old gentleman with a right lower lobe mass presents for possible biopsy COMPARISON: 11/16/2024 and 09/15/2024. TECHNIQUE: Multiple contiguous axial images of the chest was performed without the administration of intravenous contrast. This CT examination was performed utilizing dose reduction techniques. DLP: 1075.4 mGy-cm FINDINGS/OBSERVATIONS: The patient was brought to the CT suite and placed in the lateral decubitus position on the CT table. Multiple images were then performed in order to plan the localization for CT-guided biopsy. Unfortunately, the patient was unable to tolerate positioning (multiple orthopedic surgeries, limitin g his ability to position appropriately). The decision was made in order to accommodate adequate positioning for safe and successful CT biopsy to have the patient return with moderate sedation. The procedure was then aborted at this point. Redemonstration of the 19 x 29 mm spiculated lesion within the superior segment of the right lower lo be, seen on previous examination. Panlobular emphysematous change is also present, consistent with patient's history. The heart was not enlarged. No significant mediastinal lymphadenopathy was present. A nonpathologically enlarged or morphological ly suspicious lymph node was identified within the right paratracheal position, unchanged from prior. IMPRESSION: Aborted right sided CT guided biopsy, as detailed above. These findings and recommendations were discussed with the partner of patient's dental patient coordinator (Dr. Salud Diggs) at the time of examination and interpretation, who agrees with plan. Reviewed, dictated and finalized at location A. IMPRESSION: Aborted right sided CT guided biopsy, as detailed above. These findings and recommendations were discussed with the partner of patient's dental patient coordinator (Dr. Jay Jay Diggs) at the time of examination and interpretati on, who agrees with plan.
--- OUTSIDE RECORDS SUMMARY | 2025-01-22 05:30 | XMS_ITS | Clinical Summary ---
Author Organization [facility] Address [address] [place] [address] Care Team Providers Care Tower Supervisor Name Role Phone Lena Haq Primary Care Provider [phone] Social History Tobacco Use Types Packs/Day Years [...] age to complete this topic Care Teams Tower Supervisor Relationship Specialty Start Date End Date Lena Haq FNP [address] [place] [address] PCP - General NURSE PRACTITIONER 03/22/24
--- OUTSIDE RECORDS SUMMARY | 2025-01-22 05:30 | XMS_ITS | Continuity of Care Document ---
Author Organization [facility] Address [address] [place] [address] Phone Care Team Providers Care Demand Planning Analyst Name Role Phone Pao PT, KEVINT, Marko [...] Diagnoses Date Provider Providers Copied on Encounter [facility], [address], [place], [place], [id number], tel:[phone] [place] Other specified dorsopathies, lumbar regionStiffness of unspecified joint, not elsewhere classifiedMuscle weakness (generalized)Low back pain 9 Pao Zhu. . Referring Provider: Vincenzo Salazar, [address] [facility] [address], [place], [address]. tel:[phone] [facility], [address] [facility] [address], [place], [place], [id number], tel:[phone] [place] Other specified dorsopathies, lumbar regionStiffness of unspecified joint, not elsewhere classifiedMuscle weakness (generalized)Low back pain 9 [facility] . Referring Provider: Vincenzo Salazar [address] [place] [address] [address], [place], [address]. tel:[phone] [facility] [address] [facility] [address], [place], [place], [id number], tel:[phone] [place] Other specified dorsopathies, lumbar regionStiffness of unspecified joint, not elsewhere classifiedMuscle weakness (generalized)Low back pain 9 [facility] . Referring Provider: Vincenzo Salazar [address] [place] [address] [address], [place], [address]. tel:[phone] [facility] [address] [address], [place], [place], [id number], tel:[phone] [place] Other specified dorsopathies, lumbar regionStiffness of unspecified joint, not elsewhere classifiedMuscle weakness (generalized)Low back pain 9 [facility] Marko. . Referring Provider: Vincenzo Salazar [address] [place] [address] [address], [place], [address]. tel:[phone] Family History Family Member Type Diagnosis Age At Onset No Information Payers Payer name Insurance type Covered green party ID Simon flores(s) R CI [id number] Social History Type Description Quantity Date Captured [...]
--- OUTSIDE RECORDS SUMMARY | 2025-01-22 05:30 | XMS_ITS | Clinical Summary ---
Author Organization [facility] Address [address] [place] [id number] Phone [email or web address] Care Team Providers Care Pickle Cutter Name Role Phone Unavailable Primary Care Provider Unavailabl e Allergies Active Allergy Reactions Criticality Noted Date Comments Codeine 10/07/2021 Lucid dreaming, itchy ears Medications aspirin (ST SHIRA) 81 MG EC tablet Take 81 mg by mouth 1 (one) time each day. Active Macon-3 Fatty Acids (Fish Oil) 1000 MG capsule [...] complication, without long-term current use of insulin ([facility]) Take 1 tablet (500 mg total) by mouth in the morning and 1 tablet (500 mg total) in the evening. Take with meals. 180 tablet 4 03/18/20 25 Active Active Problems Problem Noted Date Diagnosed Date Plantar fasciitis, left 06/14/2023 Assessment & Plan (09/27/2023 3:45 PM DIRECTOR CHEMISTRY): Has been following with podiatry Doing much [...] may use the free smart phone andrews D[employer]MyApppal to help track calories and try to reduce by 15% every 4 weeks. You should also work on reducing your total portion sizes. You should be exercising about 30 minutes every day with cardio work outs. You should strive to avoid regular soda, juices and alcohol. Assessment & Plan (09/27/2023 3:44 PM DIRECTOR CHEMISTRY): Pt has an elevated BMI over 30 Body mass index is BMI Readings from Last 1 Encounters: 09/27/23 42.40 kg/m and you will need to work hard on reducing carbohydrates and total calories. You may use the free smart phone andrews [employer] to help track calories and try to [...] may use the free smart phone andrews [employer] to help track calories and try to [...] before you use any other medicines, including abgj-aaa-crffhse medicines. Make sure your doctor knows all [...] before you use any other medicines, including xpgp-imu-ussgwhq medicines. Make sure your doctor knows all [...] Assessment & Plan (10/05/2023 11:03 AM DIRECTOR CHEMISTRY): Eat heart-healthy foods. Eat fruits, vegetables, whole [...] before you use any other medicines, including njxz-njm-opkpzna medicines. Make sure your doctor knows all [...] Assessment & Plan (09/27/2023 3:42 PM DIRECTOR CHEMISTRY): Eat heart-healthy foods. Eat fruits, vegetables, whole [...] before you use any other medicines, including fodw-qfc-srrrfga medicines. Make sure your doctor knows all [...] before you use any other medicines, including yvlu-lda-kgoretz medicines. Make sure your doctor knows all [...] Assessment & Plan (10/05/2023 11:01 AM DIRECTOR CHEMISTRY): Pt has h/o HTN and will need [...] Assessment & Plan (09/27/2023 3:43 PM DIRECTOR CHEMISTRY): Pt has h/o HTN and will need [...] Assessment & Plan (09/27/2023 3:43 PM DIRECTOR CHEMISTRY): Encouraged to quit smoking - he is [...] Assessment & Plan (10/05/2023 11:00 AM DIRECTOR CHEMISTRY): Meds dispensed. Take as prescribed. Patient was counseled on medication risk, side effects, and possible complications. Patient was counseled on how to properly take the medication and to call with any adverse reactions. Patient stated understanding. Stay active. Watch diet. Follow up prn. Assessment & Plan (09/27/2023 3:43 PM DIRECTOR CHEMISTRY): Meds dispensed. Take as prescribed. Patient was [...] Assessment & Plan (09/27/2023 3:42 PM DIRECTOR CHEMISTRY): Uses diclofenac daily. Declines further treatment/referral Other [...] Assigned at Male 10/01/2021 1:36 PM DIRECTOR CHEMISTRY Legal Sex Male 10:47 AM CDT Gender Identity Male 10/01/2021 1:36 PM DIRECTOR CHEMISTRY Sexual Orientation Not on file Last Filed [...] complete this topic Zoster Immunization Discontinued Insurance [facility] NO COPAY NB
[2025-01-22 10:02] LABS: Glucose Point of Care 129 mg/dl (65-105)
[2025-01-22 10:06] VITALS: BP 135/77; PULSE 59; TEMP 36.9; O2SAT 93; BMI 40.7
[2025-01-22 10:38] LABS: INR 0.9; Prothrombin Time 12.4 Seconds (11.1-14.7)
== END 2025-01-22 05:29 | disposition home or self-care (01) ==
PROVIDERS: PCP Family Medicine; Referring Provider Internal Medicine Pulmonary Disease; Visit Provider Radiology Diagnostic Radiology
PROC: BB24ZZZ Computerized Tomography (CT Scan) of Bilateral Lungs (ICD-10-PCS; CPT 32408; principal; 2025-01-22 11:00)
DX: Z01.818 Encounter for other preprocedural examination (principal); R91.1 Solitary pulmonary nodule; Z53.8 Procedure and treatment not carried out for other reasons
CPT/HCPCS: 36415; 71250; 82948; 85610

== ENCOUNTER 2025-01-30 09:39 | Outpatient (CLI) | payer BC, SELFPAY ==
--- NOTE | 2025-01-23 12:51 | PC.NURSE ---
Pre Radiology instructions Report to the outpatient ingrid jay on date _[id number]_ at time _0900_ for procedure Time: _1100_ YOU MAY BE MONITORED AT HOSPITAL FOR UP TO 4 HOURS AFTER YOUR PROCEDURE. A visitor will be allowed to accompany the patient into the hospital. You and your visitor will be asked to self-screen and do not enter if you have any COVID symptoms. A mask is OPTIONAL within the hospital. Patients are to have no food or drink 6 hours prior to procedure time Driving will be restricted after the procedure, you must have a person to drive you home. Labs will be drawn in preop area and once reviewed, you will be taken to radiology area for procedure. When the procedure is completed, you will be taken to outpatient where you will be monitored for several hours. You may have one visitor in this area. Other than holding anti-coagulants, patient may take other medication(s) as scheduled. Prior to your appointment date patients are instructed to hold anti-coagulants after discussing with ordering provider to stop. If unable to discontinue anti-coagulants please notify radiologist. ? No aspirin or warfarin (Coumadin) for 7 days prior to the procedure. ? No clopidogrel (Plavix), ticagrelor (Brilinta), prasugrel (Effient) or dabigatran (Pradaxa) for 5 days prior to the procedure. ? No rivaroxaban (Xarelto), apixaban (Eliquis), dipyridamole (Aggrenox or Persantine) or cilostazol (Pletal) for 2 days prior to the procedure. Medications to discontinue per physician: ___Eliquis Date to take last dose: ____[id number] Please leave all valuables, including medications, at home the day of procedure. The hospital will not accept responsibility for valuables. Wear comfortable, loose fitting clothing.? Follow any additional instructions given to you from ordering provider. Telephone instructions given to _Ronnie_and asked if any additional questions and then verbalized understanding. Patient advised to call scheduling provider office or registration scheduling [phone] if any additional questions.
[2025-01-23 13:00] VITALS: BMI 40.6
[2025-01-30] VITALS (10 sets, daily range): BP systolic 94–119; BP diastolic 54–70; PULSE 54–64; RESP 14; O2SAT 94–97
--- NOTE | ~2025-01-30 | XR_ITS ---
EXAMINATION: XR chest 1V DATE: 01/30/2025 11:37 INDICATION: Status post right lung biopsy TECHNIQUE: frontal view of the chest was obtained. COMPARISON: Chest radiograph dated 01/16/2025 FINDINGS: The biopsied nodule is nearly indiscernible project over the lateral right midlung zone. No other air space opacities, pulmonary edema, pleural effusion or pneumothorax. The cardiomediastinal silhouette is normal. IMPRESSION: 1. No pneumothorax or other acute cardiopulmonary disease post percutaneous biopsy of a nodule in the superior segment of the right lower lobe. Reviewed, dictated and finalized at location A. IMPRESSION: 1. No pneumothorax or other acute cardiopulmonary disease post percutaneous bio psy of a nodule in the superior segment of the right lower lobe.
--- NOTE | ~2025-01-30 | XR_ITS ---
EXAMINATION: XR chest 1V portable DATE: 01/30/2025 14:42 INDICATION: Status post percutaneous right lung biopsy TECHNIQUE: frontal view of the chest was obtained. COMPARISON: Chest radiograph dated 01/30/2025 at 12:40 PM FINDINGS: There is a small right apical pneumothorax. Subtle opacity projecting over the suprahilar right midlu ng zone corresponding to the biopsied nodule. No other airspace opacities, pulmonary edema,, pleural effusion or left-sided pneumothorax. Heart size is normal. IMPRESSION: 1. Small right apical pneumothorax post biopsy of a right lower lobe nodule concerning for primary br onchogenic carcinoma. Reviewed, dictated and finalized at location A. IMPRESSION: 1. Small right apical pneumothorax post biopsy of a right lower lobe nodule con cerning for primary bronchogenic carcinoma.
--- NOTE | ~2025-01-30 | CT_ITS ---
EXAMINATION: CT biopsy lung w/imaging DATE: 01/30/2025 11:39 INDICATION: Solitary pulmonary nodule TECHNIQUE: The procedure including the risks and benefits was discussed with the patient. Risks discu ssed included infection, approximately 1/20 risk of symptomatic hemorrhage beyond mild hemoptysis, ap proximately 1/3 risk of pneumothorax, and approximately 1/10 risk of pneumothorax severe enough to wa rrant chest tube placement. The patient understood the risks and agreed to proceed. The patient was p laced prone. The skin overlying the right posterior chest was prepped and draped in sterile fashion. Anesthetic was administered with 1% lidocaine subcutaneously. A 19 gauge outer needle was advanced under CT guidance to the lesion of interest. A 20 gauge core biopsy needle was then used to obtain 4 core biopsy specimens. The needle was removed and the entry site was cleaned and dressed. There wer e no immediate complications. The dose-length product was 106.35 mGy-cm. FINDINGS: CT images demonstrate the outer needle tip adjacent to a 2.7 x 2.2 cm nodule margin the sup erior segment of the right lower lobe. IMPRESSION: 1. Successful CT-guided biopsy of a 2.7 x 2.2 cm nodule at the superior segment of the right lower lo be. Reviewed, dictated and finalized at location A. IMPRESSION: 1. Successful CT-guided biopsy of a 2.7 x 2.2 cm nodule at the superior segment of the right lower lobe.
--- NOTE | ~2025-01-30 | XR_ITS ---
EXAMINATION: XR chest 1V portable DATE: 01/30/2025 12:44 INDICATION: Status post percutaneous right lung biopsy TECHNIQUE: frontal view of the chest was obtained. COMPARISON: Chest radiograph dated 02/16 at 11:33 AM FINDINGS: Mild streaky left basilar atelectasis. Very subtle opacity projecting over the right midlung zone cor responding to the biopsied nodule. No other airspace opacities, pulmonary edema, pleural effusion or pneumothorax. The cardiomediastinal silhouette is normal. IMPRESSION: 1. No pneumothorax or other acute cardiopulmonary disease post percutaneous biopsy of a nodule in the superior segment of the right lower lobe. Reviewed, dictated and finalized at location A. IMPRESSION: 1. No pneumothorax or other acute cardiopulmonary disease post percutaneous bio psy of a nodule in the superior segment of the right lower lobe.
--- OUTSIDE RECORDS SUMMARY | 2025-01-30 09:57 | XMS_ITS | Clinical Summary ---
Author Organization [facility] Address [address] [place] [address] Phone [email or web address] Care Team Providers Care Keno Dealer Name Role Phone Unavailable Primary Care Provider Unavailabl e Allergies Active Allergy Reactions Criticality Noted Date Comments Codeine 10/07/2021 Lucid dreaming, itchy ears Medications aspirin (ST SHIRA) 81 MG EC tablet Take 81 mg by mouth 1 (one) time each day. Active Gamaliel-3 Fatty Acids (Fish Oil) 1000 MG capsule [...] complication, without long-term current use of insulin ([facility]) Take 1 tablet (500 mg total) by mouth in the morning and 1 tablet (500 mg total) in the evening. Take with meals. 180 tablet 4 03/18/20 25 Active Active Problems Problem Noted Date Diagnosed Date Plantar fasciitis, left 06/14/2023 Assessment & Plan (09/27/2023 3:45 PM CHEMICALS DISTILLER): Has been following with podiatry Doing much [...] may use the free smart phone andrews Indeedpal to help track calories and try to reduce by 15% every 4 weeks. You should also work on reducing your total portion sizes. You should be exercising about 30 minutes every day with cardio work outs. You should strive to avoid regular soda, juices and alcohol. Assessment & Plan (09/27/2023 3:44 PM CHEMICALS DISTILLER): Pt has an elevated BMI over 30 Body mass index is BMI Readings from Last 1 Encounters: 09/27/23 42.40 kg/m and you will need to work hard on reducing carbohydrates and total calories. You may use the free smart phone andrews [employer] to help track calories and try to [...] may use the free smart phone andrews [employer] to help track calories and try to [...] before you use any other medicines, including lcmy-dgb-bwahobd medicines. Make sure your doctor knows all [...] before you use any other medicines, including jmxz-nwx-bzdjnnk medicines. Make sure your doctor knows all [...] appt Assessment & Plan (10/05/2023 11:03 AM CHEMICALS DISTILLER): Eat heart-healthy foods. Eat fruits, vegetables, whole [...] before you use any other medicines, including uizc-rff-sniqgzx medicines. Make sure your doctor knows all [...] vomiting. Assessment & Plan (09/27/2023 3:42 PM CHEMICALS DISTILLER): Eat heart-healthy foods. Eat fruits, vegetables, whole [...] before you use any other medicines, including rate-xjr-mfomtah medicines. Make sure your doctor knows all [...] before you use any other medicines, including agkh-soa-zvcsiyg medicines. Make sure your doctor knows all [...] meds Assessment & Plan (10/05/2023 11:01 AM CHEMICALS DISTILLER): Pt has h/o HTN and will need [...] meds Assessment & Plan (09/27/2023 3:43 PM CHEMICALS DISTILLER): Pt has h/o HTN and will need [...] (07/06/2021): Assessment & Plan (09/27/2023 3:43 PM CHEMICALS DISTILLER): Encouraged to quit smoking - he is [...] prn. Assessment & Plan (10/05/2023 11:00 AM CHEMICALS DISTILLER): Meds dispensed. Take as prescribed. Patient was counseled on medication risk, side effects, and possible complications. Patient was counseled on how to properly take the medication and to call with any adverse reactions. Patient stated understanding. Stay active. Watch diet. Follow up prn. Assessment & Plan (09/27/2023 3:43 PM CHEMICALS DISTILLER): Meds dispensed. Take as prescribed. Patient was [...] treatment/referral Assessment & Plan (09/27/2023 3:42 PM CHEMICALS DISTILLER): Uses diclofenac daily. Declines further treatment/referral Other [...] viral communicable diseases 10/05/20202021 Overview (07/06/2021): Immunizations Immunization Administration Dates Next Due Covid-19 (Sars-cov-2), unspe [...] Sex Assigned at Male 10/01/2021 1:36 PM CHEMICALS DISTILLER Legal Sex Male 10:47 AM CDT Gender Identity Male 10/01/2021 1:36 PM CHEMICALS DISTILLER Sexual Orientation Not on file Last Filed [...]
--- OUTSIDE RECORDS SUMMARY | 2025-01-30 09:57 | XMS_ITS | Clinical Summary ---
Author Organization [facility] Address [address] [place] [address] Care Team Providers Care Seat Nailer Name Role Phone Lena Haq Primary Care Provider [phone] Social History Tobacco Use Types Packs/Day Years [...] age to complete this topic Care Teams Seat Nailer Relationship Specialty Start Date End Date Lena Haq FNP [address] [place] [address] PCP - General NURSE PRACTITIONER 03/22/24
== END 2025-01-30 15:24 | disposition home or self-care (01) ==
PROVIDERS: Radiology Diagnostic Radiology; PCP Family Medicine; Visit Provider Internal Medicine Pulmonary Disease
DX: C34.91 Malignant neoplasm of unspecified part of right bronchus or lung (principal); R91.1 Solitary pulmonary nodule; J93.9 Pneumothorax, unspecified
CPT/HCPCS: 32408; 71045; 88305; 88342

== ENCOUNTER 2025-02-02 23:19 | Inpatient (IN) | payer BC, SELFPAY ==
--- NOTE | ~2025-02-02 | CT_ITS ---
CT Scan of the Chest without Contrast: Clinical Indication: Dyspnea, pneumothorax Technique: Contiguous sections were acquired throughout the chest without intravenous contrast. Dose reduction technique was used on this scan by utilizing automated exposure control and iterative recon struction technique. The dose-length product (DLP) was 987.63 mGy-cm. COMPARISON: 01/22/2025 Findings: There is no evidence of any significant mediastinal, hilar or axillary lymphadenopathy. The mediastin al soft tissues appear normal. No pericardial effusion. Minimal right pleural effusion present. No left pleural effusion. 2.6 x 1.8 cm pulmonary nodule is present in right lower lobe is present, with focal central cavitatio n or postbiopsy change. Very small right pneumothorax present. There is mild paraseptal emphysema. Images through the upper abdomen reveal no abnormalities. Impression: Small right hydropneumothorax. Stable 2.6 x 1.8 cm superior segment right lower lobe pulmonary nodule. Correlate with prior biopsy r esults. Reviewed, dictated and finalized at [facility]. Impression: Small right hydropneumothorax. Stable 2.6 x 1.8 cm superior segment right lower lobe pulmonary nodule. Correla te with prior biopsy results.
--- NOTE | ~2025-02-02 | XR_ITS ---
Portable chest x-ray Comparison: 01/30/2025 Clinical History: Shortness of breath Findings: Small right apical pneumothorax is unchanged. No consolidation or pleural effusion. Cardi omediastinal silhouette is stable. Bones and soft tissues are unremarkable. Impression: Stable small right apical pneumothorax. Known pulmonary nodule not well seen radiographically on the current exam. Reviewed, dictated and finalized at [facility]. Impression: Stable small right apical pneumothorax. Known pulmonary nodule not well seen radiographically on the current exam.
--- OUTSIDE RECORDS SUMMARY | 2025-02-02 23:21 | XMS_ITS | Continuity of Care Document ---
Author Organization [facility] Address [address] [place] [address] Phone Care Team Providers Care Insurance Agency Manager Name Role Phone Pao PT, KEVINT, [...] Diagnoses Date Provider Providers Copied on Encounter [facility], [address], [place], [place], [id number], tel:[phone] [place] Other specified dorsopathies, lumbar regionStiffness of unspecified joint, not elsewhere classifiedMuscle weakness (generalized)Low back pain 9 Pao Zhu. . Referring Provider: Vincenzo Salazar, [address] [facility] [address], [place], [address]. tel:[phone] [facility], [address] [facility] [address], [place], [place], [id number], tel:[phone] [place] Other specified dorsopathies, lumbar regionStiffness of unspecified joint, not elsewhere classifiedMuscle weakness (generalized)Low back pain 9 [facility] . Referring Provider: Vincenzo Salazar [address] [place] [address] [address], [place], [address]. tel:[phone] [facility] [address] [facility] [address], [place], [place], [id number], tel:[phone] [place] Other specified dorsopathies, lumbar regionStiffness of unspecified joint, not elsewhere classifiedMuscle weakness (generalized)Low back pain 9 [facility]. . Referring Provider: Vincenzo Salazar [address] [place] [address] [address], [place], [address]. tel:[phone] [facility] [address] [address], [place], [place], [id number], tel:[phone] [place] Other specified dorsopathies, lumbar regionStiffness of unspecified joint, not elsewhere classifiedMuscle weakness (generalized)Low back pain 9 [facility] Marko. . Referring Provider: Vincenzo Salazar [address] [place] [address] [address], [place], [address]. tel:[phone] Family History Family Member Type Diagnosis Age At Onset No Information Payers Payer name Insurance type Covered republican ID Simon flores(s) R CI [id number] Social History Type Description Quantity Date Captured [...]
--- OUTSIDE RECORDS SUMMARY | 2025-02-02 23:21 | XMS_ITS | Clinical Summary ---
Author Organization [facility] Address [address] [place] [id number] Phone [email or web address] Care Team Providers Care Managed Care Manager Name Role Phone Unavailable Primary Care Provider Unavailabl e Allergies Active Allergy Reactions Criticality Noted Date Comments Codeine 10/07/2021 Lucid dreaming, itchy ears Medications aspirin (ST SHIRA) 81 MG EC tablet Take 81 mg by mouth 1 (one) time each day. Active [place]-3 Fatty Acids (Fish Oil) 1000 MG capsule [...] complication, without long-term current use of insulin ([facility]) Take 1 tablet (500 mg total) by mouth in the morning and 1 tablet (500 mg total) in the evening. Take with meals. 180 tablet 4 03/18/20 25 Active Active Problems Problem Noted Date Diagnosed Date Plantar fasciitis, left 06/14/2023 Assessment & Plan (09/27/2023 3:45 PM HEAD SOFT SUGAR OPERATOR): Has been following with podiatry Doing much [...] may use the free smart phone andrews Neuro[employer] to help track calories and try to reduce by 15% every 4 weeks. You should also work on reducing your total portion sizes. You should be exercising about 30 minutes every day with cardio work outs. You should strive to avoid regular soda, juices and alcohol. Assessment & Plan (09/27/2023 3:44 PM HEAD SOFT SUGAR OPERATOR): Pt has an elevated BMI over 30 Body mass index is BMI Readings from Last 1 Encounters: 09/27/23 42.40 kg/m and you will need to work hard on reducing carbohydrates and total calories. You may use the free smart phone andrews [employer] to help track calories and try to [...] may use the free smart phone andrews [employer] to help track calories and try to [...] before you use any other medicines, including eowc-wsw-lpkqlms medicines. Make sure your doctor knows all [...] before you use any other medicines, including iudc-dsp-wfahuhx medicines. Make sure your doctor knows all [...] appt Assessment & Plan (10/05/2023 11:03 AM HEAD SOFT SUGAR OPERATOR): Eat heart-healthy foods. Eat fruits, vegetables, whole [...] before you use any other medicines, including vjmv-rvs-gymbnyy medicines. Make sure your doctor knows all [...] vomiting. Assessment & Plan (09/27/2023 3:42 PM HEAD SOFT SUGAR OPERATOR): Eat heart-healthy foods. Eat fruits, vegetables, whole [...] before you use any other medicines, including ijjf-oyl-oxsbafi medicines. Make sure your doctor knows all [...] before you use any other medicines, including wmon-iok-kvusjpk medicines. Make sure your doctor knows all [...] meds Assessment & Plan (10/05/2023 11:01 AM HEAD SOFT SUGAR OPERATOR): Pt has h/o HTN and will need [...] meds Assessment & Plan (09/27/2023 3:43 PM HEAD SOFT SUGAR OPERATOR): Pt has h/o HTN and will need [...] (07/06/2021): Assessment & Plan (09/27/2023 3:43 PM HEAD SOFT SUGAR OPERATOR): Encouraged to quit smoking - he is [...] prn. Assessment & Plan (10/05/2023 11:00 AM HEAD SOFT SUGAR OPERATOR): Meds dispensed. Take as prescribed. Patient was counseled on medication risk, side effects, and possible complications. Patient was counseled on how to properly take the medication and to call with any adverse reactions. Patient stated understanding. Stay active. Watch diet. Follow up prn. Assessment & Plan (09/27/2023 3:43 PM HEAD SOFT SUGAR OPERATOR): Meds dispensed. Take as prescribed. Patient was [...] treatment/referral Assessment & Plan (09/27/2023 3:42 PM HEAD SOFT SUGAR OPERATOR): Uses diclofenac daily. Declines further treatment/referral Other [...] Sex Assigned at Male 10/01/2021 1:36 PM HEAD SOFT SUGAR OPERATOR Legal Sex Male 10:47 AM CDT Gender Identity Male 10/01/2021 1:36 PM HEAD SOFT SUGAR OPERATOR Sexual Orientation Not on file Last Filed [...] complete this topic Zoster Immunization Discontinued Insurance [facility] NO COPAY NB
--- OUTSIDE RECORDS SUMMARY | 2025-02-02 23:21 | XMS_ITS | Clinical Summary ---
Author Organization [facility] Address [address] [place] [address] Care Team Providers Care Welding Machine Operator Submerged Arc Name Role Phone Lena Haq Primary Care Provider [phone] Social History Tobacco Use Types Packs/Day Years [...] age to complete this topic Care Teams Welding Machine Operator Submerged Arc Relationship Specialty Start Date End Date Lena Haq FNP [address] [place] [address] PCP - General NURSE PRACTITIONER 03/22/24
[2025-02-02 23:27] VITALS: BP 129/75; PULSE 70; PULSE 72; RESP 17; RESP 18; TEMP 37.5; O2SAT 93; O2SAT 94
--- NOTE | 2025-02-02 23:47 | ECG_ITS ---
Test Date: 2025-02-02 23:49:58 Measurements Intervals [place] Rate: 69 P: 73 CO: 169 QRS: 68 QRSD: 106 T: 68 QT: 395 QTc: 424 Interpretive Statements SINUS RHYTHM Compared to ECG 12/31/2024 01:28:19 No significant changes Electronically Signed On 02-04-2025 14:14:01 CDT by Agustin Stacy M.D.
[2025-02-02 23:49] VITALS: BP 153/89; PULSE 71; RESP 15; O2SAT 92
[2025-02-02 23:54] VITALS: PULSE 68; RESP 18; O2SAT 94
[2025-02-03] VITALS (41 sets, daily range): BP systolic 104–162; BP diastolic 56–100; PULSE 67–107; RESP 14–26; TEMP 36.3–36.9; O2SAT 91–100; BMI 44.2
[2025-02-03 00:05] LABS: Basophils Percent Auto 0.5 % (0.2-1.2); Eosinophils Absolute Auto 0.6 K/mm3 (0-0.3); Eosinophils Percent Auto 6.8 % (0-4.4); Hematocrit 42.7 % (42.0-52.0); Immature Granulocyte Absolute 0.03 K/mm3 (0.00-0.031); Immature Granulocyte Percent A 0.4 % (0-0.5); Lymphocytes Percent Auto 22.6 % (18.3-44.2); Mean Corpuscular HGB Conc 32.8 g/dl (32-36); Mean Corpuscular Hemoglobin 32.5 pg (26-34); Mean Corpuscular Volume 99.1 fl (80-100); Mean Platelet Volume 10.2 fl (7.4-10.4); Monocytes Absolute Auto 0.8 K/mm3 (0.1-0.6); Monocytes Percent Auto 9.5 % (2.6-8.5); Neutrophils Absolute Auto 5.1 K/mm3 (1.3-6.7); Neutrophils Percent Auto 60.2 % (45.5-73.1); Platelet Count Result 229 k/mm3 (150-375); Red Blood Count 4.31 M/mm3 (4.6-6.20); Red Cell Distribution Width 12.4 % (11.5-14.5); White Blood Count 8.4 K/mm3 (4.5-10.0)
[2025-02-03 00:09] LABS: Alanine Aminotransferase 33 U/L (6-50); Albumin Level 4.1 g/dL (3.5-5.1); Alkaline Phosphatase 84 U/L (38-126); Anion Gap 5 mmol/L (4-12); Aspartate Amino Transferase 27 U/L (17-59); Bilirubin,Total 0.4 mg/dL (0.2-1.3); Blood Urea Nitrogen 17 mg/dL (9-20); Calcium 8.8 mg/dL (8.4-10.2); Carbon Dioxide 30 mmol/L (22-30); Chloride 104 mmol/L (98-107); Estimated CRCL calculation 191 ml/min; Estimated Glomerular Filt Rate > 60; Glucose 179 mg/dL (65-110); Lipase 107 U/L (23-300); Potassium 4.1 mmol/L (3.4-5.0); Sodium 139 mmol/L (137-145)
[2025-02-03 00:21] LABS: Troponin I < 0.012 ng/mL (0.000-0.034)
--- OUTSIDE RECORDS SUMMARY | 2025-02-03 00:22 | XMS_ITS | Continuity of Care Document ---
Author Organization [facility] Address [address] [place] [address] Phone Care Team Providers Care Senior Architectural Designer Name Role Phone Pao PT, KEVINT, Marko [...] Diagnoses Date Provider Providers Copied on Encounter [facility], [address], [place], [place], [id number], tel:[phone] [place] Other specified dorsopathies, lumbar regionStiffness of unspecified joint, not elsewhere classifiedMuscle weakness (generalized)Low back pain 9 Pao Zhu. . Referring Provider: Vincenzo Salazar, [address], [place], [address]. tel:[phone] [facility], [address], [place], [place], [id number], tel:[phone] [place] Other specified dorsopathies, lumbar regionStiffness of unspecified joint, not elsewhere classifiedMuscle weakness (generalized)Low back pain 9 [facility] Zhu. . Referring Provider: Vincenzo Salazar [address] [place] [address] [address], [place], [address]. tel:[phone] [facility] [address], [place], [place], [id number], tel:[phone] [place] Other specified dorsopathies, lumbar regionStiffness of unspecified joint, not elsewhere classifiedMuscle weakness (generalized)Low back pain 9 [facility] Zhu. . Referring Provider: Vincenzo Salazar [address] [place] [address] [address], [place], [address]. tel:[phone] [facility] [address] [address], [place], [place], [id number], tel:[phone] [place] Other specified dorsopathies, lumbar regionStiffness of unspecified joint, not elsewhere classifiedMuscle weakness (generalized)Low back pain 9 [facility] Marko. . Referring Provider: Vincenzo Salazar [address] [place] [address] [address], [place], [address]. tel:[phone] Family History Family Member Type Diagnosis Age At Onset No Information Payers Payer name Insurance type Covered constitution party ID Simon flores(s) R CI [id number] Social History Type Description Quantity Date Captured [...]
--- OUTSIDE RECORDS SUMMARY | 2025-02-03 00:22 | XMS_ITS | Clinical Summary ---
Author Organization [facility] Address [address] [place] [address] Care Team Providers Care Electrical Engineering Technician Name Role Phone Lena Haq Primary Care Provider [phone] Social History Tobacco Use Types Packs/Day Years [...] age to complete this topic Care Teams Electrical Engineering Technician Relationship Specialty Start Date End Date Lena Haq FNP [address] [place] [address] PCP - General NURSE PRACTITIONER 03/22/24
--- OUTSIDE RECORDS SUMMARY | 2025-02-03 00:22 | XMS_ITS | Clinical Summary ---
Author Organization [facility] Address [address] [place] [address] Phone [email or web address] Care Team Providers Care Hyperbaric Tech Name Role Phone Unavailable Primary Care Provider Unavailabl e Allergies Active Allergy Reactions Criticality Noted Date Comments Codeine 10/07/2021 Lucid dreaming, itchy ears Medications aspirin (ST SHIRA) 81 MG EC tablet Take 81 mg by mouth 1 (one) time each day. Active [place]-3 Fatty Acids (Fish Oil) 1000 MG capsule [...] complication, without long-term current use of insulin ([facility]) Take 1 tablet (500 mg total) by mouth in the morning and 1 tablet (500 mg total) in the evening. Take with meals. 180 tablet 4 03/18/20 25 Active Active Problems Problem Noted Date Diagnosed Date Plantar fasciitis, left 06/14/2023 Assessment & Plan (09/27/2023 3:45 PM HONING MACHINE OPERATOR SEMIAUTOMATIC): Has been following with podiatry Doing much [...] may use the free smart phone andrews [employer]endpal to help track calories and try to reduce by 15% every 4 weeks. You should also work on reducing your total portion sizes. You should be exercising about 30 minutes every day with cardio work outs. You should strive to avoid regular soda, juices and alcohol. Assessment & Plan (09/27/2023 3:44 PM HONING MACHINE OPERATOR SEMIAUTOMATIC): Pt has an elevated BMI over 30 Body mass index is BMI Readings from Last 1 Encounters: 09/27/23 42.40 kg/m and you will need to work hard on reducing carbohydrates and total calories. You may use the free smart phone andrews [employer] to help track calories and try to [...] may use the free smart phone andrews [employer] to help track calories and try to [...] before you use any other medicines, including jzip-uwu-vyehaaw medicines. Make sure your doctor knows all [...] before you use any other medicines, including mzze-imb-kawwerc medicines. Make sure your doctor knows all [...] appt Assessment & Plan (10/05/2023 11:03 AM HONING MACHINE OPERATOR SEMIAUTOMATIC): Eat heart-healthy foods. Eat fruits, vegetables, whole [...] before you use any other medicines, including dyqy-tvt-noafzde medicines. Make sure your doctor knows all [...] vomiting. Assessment & Plan (09/27/2023 3:42 PM HONING MACHINE OPERATOR SEMIAUTOMATIC): Eat heart-healthy foods. Eat fruits, vegetables, whole [...] before you use any other medicines, including jmsv-xex-wfkdlid medicines. Make sure your doctor knows all [...] before you use any other medicines, including pfdy-xrz-thidjke medicines. Make sure your doctor knows all [...] meds Assessment & Plan (10/05/2023 11:01 AM HONING MACHINE OPERATOR SEMIAUTOMATIC): Pt has h/o HTN and will need [...] meds Assessment & Plan (09/27/2023 3:43 PM HONING MACHINE OPERATOR SEMIAUTOMATIC): Pt has h/o HTN and will need [...] (07/06/2021): Assessment & Plan (09/27/2023 3:43 PM HONING MACHINE OPERATOR SEMIAUTOMATIC): Encouraged to quit smoking - he is [...] prn. Assessment & Plan (10/05/2023 11:00 AM HONING MACHINE OPERATOR SEMIAUTOMATIC): Meds dispensed. Take as prescribed. Patient was counseled on medication risk, side effects, and possible complications. Patient was counseled on how to properly take the medication and to call with any adverse reactions. Patient stated understanding. Stay active. Watch diet. Follow up prn. Assessment & Plan (09/27/2023 3:43 PM HONING MACHINE OPERATOR SEMIAUTOMATIC): Meds dispensed. Take as prescribed. Patient was [...] treatment/referral Assessment & Plan (09/27/2023 3:42 PM HONING MACHINE OPERATOR SEMIAUTOMATIC): Uses diclofenac daily. Declines further treatment/referral Other [...] Sex Assigned at Male 10/01/2021 1:36 PM HONING MACHINE OPERATOR SEMIAUTOMATIC Legal Sex Male 10:47 AM CDT Gender Identity Male 10/01/2021 1:36 PM HONING MACHINE OPERATOR SEMIAUTOMATIC Sexual Orientation Not on file Last Filed [...] complete this topic Zoster Immunization Discontinued Insurance [facility] NO COPAY NB
--- NOTE | 2025-02-03 00:41 | PC.NURSE ---
Pt placed on NRB 15L per Dr Sanon request after xray.
[2025-02-03 00:51] LABS: Partial Thromboplastin Time 34.8 Seconds (22.3-36.8); Prothrombin Time 13.6 Seconds (11.1-14.7)
[2025-02-03] MEDS: dexAMETHasone SOD PHOS INJ 10 MG/ML 1 ML VIAL IV PUSH (00:53)
--- NOTE | 2025-02-03 00:54 | ED_ITS ---
HPI - General Adult General Chief complaint: Unspecified Stated complaint: lung pain Time Seen by Provider: 02/03/25 00:10 History of Present Illness HPI narrative: This is a 54-year-old male presenting with difficulty breathing and chest pain. Patient had a CT-guided biopsy of a lung mass on January 30. Afterwards he had a small apical pneumothorax. He was discharged and since then has been having a sharp pain in his right thorax/axillary area. His breathing has gotten progressively worse. Patient states he has not been taking his breathing treatments since the biopsy. He denies fevers chills abdominal pain lower extremity edema. Related Data Home Medications Medication Instructions Recorded Confirmed Last Taken Type pantoprazole 40 mg tablet,delayed 40 mg PO QAM 11/14/24 01/29/25 01/29/25 History release cholecalciferol (vitamin D3) 125 125 mcg PO DAILY 01/13/25 01/29/25 01/29/25 History mcg (5,000 unit) tablet (Vitamin D3) diltiazem HCl 360 mg 360 mg PO DAILY 01/13/25 01/29/25 01/29/25 History capsule,extended release 24 hr (Cardizem CD) omega 3-tyh-nzw-fish oil 1,200 mg 1 cap PO DAILY 01/13/25 01/29/25 01/29/25 History (144 mg-216 mg) capsule (Fish Oil) Allergies Allergy/AdvReac Type Severity Reaction Status Date / Time codeine AdvReac Unknown nightmares, Verified 02/02/25 23:48 extreme internal ear itching PMFSH Past Medical History Medical History Diabetes Chronic obstructive pulmonary disease Hyperlipidemia Hypertension Seasonal allergies Rheumatoid arthritis Sleep apnea Seizures Tobacco use Surgical History Surgical History History of right knee surgery Has had 5 surgeries total including ACL and meniscus repairs History of left knee surgery 1991-Dr. Erwin, meniscus repair, repair meniscus again by Dr. Mccloud Family History Family History Mother Malignant neoplasm Hypertension Diabetes mellitus Arthritis Father Diabetes mellitus Social History Social History Social History: Surrogate medical decision maker: Yenifer Shwetha, spouse. Code status: Full code. Smoking packs per day: 1.5 Smoking cigarettes per day: 30.0 Years smoked: 45 Smoking pack-years: 67.50 Smoking status: Current every day smoker Tobacco type: cigarettes Second hand tobacco smoke exposure: Yes Alcohol intake: former Alcohol use details: rare Substance use: current Substance use type: marijuana Last use: 09/12/24 Do You Feel Safe in your Home?: Yes Lack of Transportation: YES Lack of Food: Never True Current Housing: I Have Housing Concerned About Future Housing: No Difficulty Paying Gas/Electric Bills: No Difficulty Paying for Meds: YES Currently Unemployed: No Education: High School Diploma/GED Difficulty w/ Childcare or Family Care: No Living arrangements: with family Occupation/Education: occupation Spiritual care concerns: No Exam 2 Narrative: APPEARANCE: No apparent distress. Head: atraumatic. EYES: EOMI, NOSE: Atraumatic NECK: Trachea midline RESPIRATORY: 3-4 word dyspnea, tachypneic, wheezing in all castaneda CARDIOVASCULAR: RRR, no peripheral edema ABDOMINAL: Non-distended nontender MUSCULOSKELETAl: No obvious deformities NEURO: Alert. Moving 4/4 extremities SKIN:: Warm, dry. Normal color PSYCHIATRIC: Normal affect Course Vital Signs Vital signs: Vital Signs Temperature 99.5 F 02/02/25 23:27 Pulse Rate 72 02/02/25 23:27 Respiratory Rate 17 02/02/25 23:27 Blood Pressure 129/75 02/02/25 23:27 Pulse Oximetry 93 02/02/25 23:27 Oxygen Delivery Nasal Cannula 02/02/25 23:27 Oxygen Flow Rate 4 02/02/25 23:27 Temperature 99.5 F 02/02/25 23:27 Pulse Rate 71 02/02/25 23:49 Respiratory Rate 15 02/02/25 23:49 Blood Pressure 153/89 H 02/02/25 23:49 Pulse Oximetry 99 02/03/25 00:42 Oxygen Delivery Non-Rebreather Mask 02/03/25 00:42 Oxygen Flow Rate 15 02/03/25 00:42 Medical Decision Making [facility] Narrative Medical decision making narrative: -Course: 54-year-old male COPD presenting 3 days after a lung biopsy with chest pain difficulty breathing. He does have a small apical pneumothorax on x-ray. However he has wheezing in all castaneda and his difficulty breathing is due to his COPD as opposed to the very small pneumothorax. He has been giving breathing treatments and steroids. He will be admitted the hospital for management his COPD and PTX. -DDX includes but is not limited to: COPD, pneumonia, tension pneumothorax pneumothorax, PE Vital Signs Vital Signs: Vital Signs Temperature 99.5 F 02/02/25 23:27 Pulse Rate 72 02/02/25 23:27 Respiratory Rate 17 02/02/25 23:27 Blood Pressure 129/75 02/02/25 23:27 Pulse Oximetry 93 02/02/25 23:27 Oxygen Delivery Nasal Cannula 02/02/25 23:27 Oxygen Flow Rate 4 02/02/25 23:27 Temperature 99.5 F 02/02/25 23:27 Pulse Rate 71 02/02/25 23:49 Respiratory Rate 15 02/02/25 23:49 Blood Pressure 153/89 H 02/02/25 23:49 Pulse Oximetry 99 02/03/25 00:42 Oxygen Delivery Non-Rebreather Mask 02/03/25 00:42 Oxygen Flow Rate 15 02/03/25 00:42 Lab Data 02/02/25 23:49 02/02/25 23:49 Labs: Lab Results 02/02/25 Range/Units 23:49 WBC 8.4 (4.5-10.0) K/mm3 RBC 4.31 L (4.6-6.20) M/mm3 Hgb 14.0 (14.0-18.0) g/dL Hct 42.7 (42.0-52.0) % MCV 99.1 (80-100) fl MCH 32.5 (26-34) pg MCHC 32.8 (32-36) g/dl RDW 12.4 (11.5-14.5) % Plt Count 229 (150-375) k/mm3 MPV 10.2 (7.4-10.4) fl Immature Gran % (Auto) 0.4 (0-0.5) % Neut % (Auto) 60.2 (45.5-73.1) % Lymph % (Auto) 22.6 (18.3-44.2) % [place] % (Auto) 9.5 H (2.6-8.5) % Eos % (Auto) 6.8 H (0-4.4) % Baso % (Auto) 0.5 (0.2-1.2) % Lymph # (Auto) 1.90 (0.9-3.2) K/mm3 [place] # (Auto) 0.8 H (0.1-0.6) K/mm3 Eos # (Auto) 0.6 H (0-0.3) K/mm3 Baso # (Auto) 0.0 (0.0-0.1) K/mm3 Abs Immat Gran (auto) 0.03 (0.00-0.031) K/mm3 Absolute Neuts (auto) 5.1 (1.3-6.7) K/mm3 Absolute Nucleated RBC 0.000 (0.0-0.012) K/mm3 Nucleated RBC % 0.0 (0.0-0.2) % PT 13.6 (11.1-14.7) Seconds INR 1.0 APTT 34.8 (22.3-36.8) Seconds Sodium 139 (137-145) mmol/L Potassium 4.1 (3.4-5.0) mmol/L Chloride 104 (98-107) mmol/L Carbon Dioxide 30 (22-30) mmol/L Anion Gap 5 (4-12) mmol/L BUN 17 (9-20) mg/dL Creatinine 0.64 L (0.7-1.3) mg/dL Estim Creat Clear Calc 191 ml/min Estimated GFR > 60 (59 - ) Glucose 179 H (65-110) mg/dL Calcium 8.8 (8.4-10.2) mg/dL Total Bilirubin 0.4 (0.2-1.3) mg/dL AST 27 (17-59) U/L ALT 33 (6-50) U/L Alkaline Phosphatase 84 (38-126) U/L Troponin I < 0.012 (0.000-0.034) ng/mL Total Protein 8.0 (6.3-8.2) g/dL Albumin 4.1 (3.5-5.1) g/dL Lipase 107 (23-300) U/L Discharge Plan Discharge Clinical Impression: COPD exacerbation, Pneumothorax Patient Disposition: Still a Patient Condition: Stable Patient Language: Slovenian Prescriptions: No Action glipizide 5 mg tablet 5 mg PO DAILY Qty: 90 1RF metformin 500 mg tablet 500 mg PO BIDWMEAL Qty: 180 1RF hydrocodone-acetaminophen 5-325 mg tablet 1 tablet PO Q8H Qty: 30 0RF diltiazem HCl [Cardizem CD] 360 mg capsule,extended release 24hr 360 mg PO DAILY omega 0-lkk-ygc-fish oil [Fish Oil] 1,200 (144-216) mg capsule 1 cap PO DAILY cholecalciferol (vitamin D3) [Vitamin D3] 125 mcg (5,000 unit) tablet 125 mcg PO DAILY atorvastatin 40 mg Tablet 80 mg PO HS Qty: 30 0RF lisinopril 30 mg tablet 30 mg PO DAILY Qty: 30 0RF tiotropium bromide [Spiriva with HandiHaler] 18 mcg capsule, w/inhalation device 1 cap inhalation DAILY Qty: 30 0RF Rx Instructions: puncture 1 cap using device; one dose = 2 inhalations (DME) nebulizer and compressor Device See Rx Instructions .Route Qty: 1 0RF Rx Instructions: As directed albuterol sulfate 90 mcg/actuation aerosol powdr breath activated 2 inh inhalation Q4H PRN (Reason: shortness of breath or wheezing) Qty: 1 0RF pantoprazole 40 mg tablet,delayed release (DR/EC) 40 mg PO QAM dextrose [Glutose-15] 40 % Gel 15 g PO PRN PRN (Reason: Hypoglycemia) Qty: 30 0RF metoprolol tartrate 50 mg Tablet 50 mg PO Q12HR Qty: 60 1RF Eliquis 5 mg Tablet 5 mg PO Q12HR Qty: 60 1RF guaifenesin [Mucus Relief ER] 600 mg Tablet Extended Release 12hr 1,200 mg PO Q12HR Qty: 60 0RF nicotine [Nicoderm CQ] 21 mg/24 hr Patch 24 Hour 1 patch transdermal DAILY Qty: 28 0RF levalbuterol HCl 1.25 mg/3 mL solution for nebulization 1.25 mg inhalation TID PRN (Reason: shortness of breath or wheezing) Qty: 270 0RF Follow-up/Referrals: Vincenzo Salazar MD [Primary Care Provider] -
[2025-02-03] MEDS: IPRATROPIUM 0.5 MG/ALBUTEROL SULFATE 2.5 MG AMPUL.NEB 3 ML 12 ML INHALATION (01:07)
[2025-02-03 01:46] LABS: Fractional Inspired Oxygen 52 %; PCO2 VBG 48.9 mmHg (42.0-48.0); PO2 VBG 63.8 mmHg (35.0-45.0)
[2025-02-03 01:48] LABS: Device OTHER DEVICE
--- NOTE | 2025-02-03 02:24 | PC.NURSE ---
Patient taken to CT via stretcher while in portable monitor and NC.
[2025-02-03 02:28] LABS: Influenza A QL RT-PCR Negative (Negative); Influenza B QL RT-PCR Negative (Negative); RSV RNA, RT-PCR Negative (Negative); SARS-CoV-2 RNA PCR Negative (Negative)
--- NOTE | 2025-02-03 04:02 | ECG_ITS ---
Test Date: 2025-02-03 04:08:51 Measurements Intervals [place] Rate: 68 P: 64 MS: 173 QRS: 57 QRSD: 108 T: 62 QT: 407 QTc: 433 Interpretive Statements SINUS RHYTHM Compared to ECG 02/02/2025 23:49:58 No significant changes Electronically Signed On 02-04-2025 14:14:16 CDT by Agustin Satcy M.D.
[2025-02-03 04:35] LABS: Troponin I 0.013 ng/mL (0.000-0.034)
[2025-02-03] MEDS: methylPREDNISolone SOD SUCC 125 MG VIAL 60 MG IV PUSH ×3 (06:55→17:28)
[2025-02-03] MEDS: LACTATED RINGERS 1,000 ML 100 ML IV CONT ×2 (06:57→20:23)
--- NOTE | 2025-02-03 07:30 | P.HP_ITS ---
H&P: HPI History of Present Illness Date/Time: 02/03/25 07:30 Chief Complaint: lung pain Narrative: Patient is a 54 year old male with a past medical history of hypertension, type 2 diabetes mellitus, all, COPD, chronic respiratory failure on home O2, KAL on CPAP, dyslipidemia, morbid obesity, history of tobacco abuse, rheumatoid arthritis who presented to the ER for right axilla pain and shortness of breath. He had a CT-guided biopsy of a lung mass performed on January 30 which resulted in a small right-sided apical pneumothorax. He was discharged but has continued to have sharp pain in the right axilla region. He states he feels as though his shortness of breath has gotten worse despite chronic 4 L nasal cannula use. Denies any recent illnesses, fevers, chills, sputum production nausea/vomiting, midline chest pain, abdominal pain or lower extremity pain/edema. Denies any recent travel. Reports that walking or exertion makes the shortness of breath or pain worse. States that at rest he feels completely fine. No tenderness to palpation to the chest wall. There is expiratory wheezing in all lung castaneda but no diminished lung sounds, crackles, or rhonchi. A&O x4, denies any weakness or somnolence. Pulmonology consulted and they recommend transfer to a [facility] in case the patient becomes unstable. [facility] transfer center has been contacted and patient has been accepted to [facility]. Pending transfer at this time. In ED: VS 99.5F, 72 HR, 17 RR, 129/75 BP, 93% NC 4L WBC 8.4, Hgb 14, Hct 42.7, Na 139, K 4.1, Cl 104, BUN 17, Cr 0.64, Glucose 179, Plt 229. Chest XR: Stable small right apical pneumothorax. Known pulmonary nodule not well seen radiographically on the current exam. Chest CT: Small right hydropneumothorax. Stable 2.6 x 1.8 cm superior segment right lower lobe pulmonary nodule. Correlate with prior biopsy results. Viral panel negative Troponin negative EKG: Normal sinus rhythm VBG: PH 7.36, pCO2 48.9, PO2 63.8, HC03 27, FiO2 50% Review of Systems Review of Systems: All systems reviewed & are unremarkable except as noted in HPI and below [facility] Past Medical History Medical History Diabetes Chronic obstructive pulmonary disease Hyperlipidemia Hypertension Seasonal allergies Rheumatoid arthritis Sleep apnea Seizures Tobacco use Surgical History Surgical History History of right knee surgery Has had 5 surgeries total including ACL and meniscus repairs History of left knee surgery 1991-Dr. Erwin, meniscus repair, repair meniscus again by Dr. Mccloud Family History Family History Mother Malignant neoplasm Hypertension Diabetes mellitus Arthritis Father Diabetes mellitus Social History Social History Social History: Surrogate medical decision maker: Yenifer Tadeo, spouse. Code status: Full code. Smoking packs per day: 1.5 Smoking cigarettes per day: 30.0 Years smoked: 45 Smoking pack-years: 67.50 Smoking status: Current every day smoker Tobacco type: cigarettes Second hand tobacco smoke exposure: Yes Alcohol intake: former Alcohol use details: rare Substance use: former Substance use type: marijuana Last use: 09/12/24 Do You Feel Safe in your Home?: Yes Lack of Transportation: No Lack of Food: Never True Current Housing: I Have Housing Concerned About Future Housing: No Difficulty Paying Gas/Electric Bills: No Difficulty Paying for Meds: No Currently Unemployed: No Education: Trade/Vocational Certificate Difficulty w/ Childcare or Family Care: No Living arrangements: with family Occupation/Education: occupation Spiritual care concerns: No Meds Home Medications and Allergies Home Medications Medication Instructions Recorded Confirmed Type albuterol sulfate 90 mcg/actuation 2 inh inhalation Q4H PRN shortness 09/20/24 02/03/25 Rx breath activated powder inhaler of breath or wheezing #1 ea atorvastatin 40 mg tablet 80 mg (2 x 40 mg) PO HS #30 tabs 09/20/24 02/03/25 Rx lisinopril 30 mg tablet 30 mg PO DAILY #30 tabs 09/20/24 02/03/25 Rx nebulizer and compressor #1 ea 09/20/24 02/03/25 Rx tiotropium bromide 18 mcg capsule 1 cap inhalation DAILY #30 09/20/24 02/03/25 Rx with inhalation device (Spiriva inhalations with HandiHaler) pantoprazole 40 mg tablet,delayed 40 mg PO QAM 11/14/24 02/03/25 History release apixaban 5 mg tablet (Eliquis) 5 mg PO Q12HR #60 tabs 11/22/24 02/03/25 Rx dextrose 40 % oral gel (Glutose-15) 15 g PO PRN PRN Hypoglycemia #30 11/22/24 02/03/25 Rx grams guaifenesin 600 mg tablet, 1,200 mg (2 x 600 mg) PO Q12HR #60 11/22/24 02/03/25 Rx extended release 12 hr (Mucus tabs Relief ER) metoprolol tartrate 50 mg tablet 50 mg PO Q12HR #60 tabs 11/22/24 02/03/25 Rx nicotine 21 mg/24 hr daily 1 patch transdermal DAILY #28 ea 11/22/24 02/03/25 Rx transdermal patch (Nicoderm CQ) cholecalciferol (vitamin D3) 125 125 mcg PO DAILY 01/13/25 02/03/25 History mcg (5,000 unit) tablet (Vitamin D3) diltiazem HCl 360 mg 360 mg PO DAILY 01/13/25 02/03/25 History capsule,extended release 24 hr (Cardizem CD) omega 5-dkg-eyr-fish oil 1,200 mg 1 cap PO DAILY 01/13/25 02/03/25 History (144 mg-216 mg) capsule (Fish Oil) levalbuterol HCl 1.25 mg/3 mL 1.25 mg (3 mL) inhalation TID PRN 01/15/25 02/03/25 Rx solution for nebulization shortness of breath or wheezing #270 vials glipizide 5 mg tablet 5 mg PO DAILY #90 tabs 01/23/25 02/03/25 Rx hydrocodone 5 mg-acetaminophen 325 1 tablet PO Q8H severe pain #30 01/23/25 02/03/25 Rx mg tablet tabs metformin 500 mg tablet 500 mg PO BIDWMEAL #180 tabs 01/23/25 02/03/25 Rx Allergies Allergy/AdvReac Type Severity Reaction Status Date / Time codeine AdvReac Unknown nightmares, Verified 02/02/25 23:48 extreme internal ear itching Vital Signs Vital Signs - 24 hr 02/02/25 23:27 02/02/25 23:27 02/02/25 23:27 Temperature 99.5 F Pulse Rate 72 70 Respiratory Rate 17 18 Blood Pressure 129/75 Pulse Oximetry 93 94 Oxygen Delivery Nasal Cannula Oxygen Flow Rate 4 4 02/02/25 23:49 02/02/25 23:54 02/03/25 00:01 Temperature Pulse Rate 71 68 69 Respiratory Rate 15 18 20 Blood Pressure 153/89 H 115/100 H Pulse Oximetry 92 94 95 Oxygen Delivery Oxygen Flow Rate 02/03/25 00:02 02/03/25 00:15 02/03/25 00:30 Temperature Pulse Rate 69 Respiratory Rate 19 20 24 H Blood Pressure Pulse Oximetry 93 94 93 Oxygen Delivery Oxygen Flow Rate 02/03/25 00:42 02/03/25 01:07 02/03/25 01:30 Temperature Pulse Rate 93 67 Respiratory Rate 17 24 H Blood Pressure Pulse Oximetry 99 96 Oxygen Delivery Non-Rebreather Mask Oxygen Flow Rate 15 02/03/25 01:31 02/03/25 01:45 02/03/25 02:00 Temperature Pulse Rate 71 70 Respiratory Rate 26 H 25 H 18 Blood Pressure 120/74 Pulse Oximetry 97 96 93 Oxygen Delivery Oxygen Flow Rate 02/03/25 02:01 02/03/25 02:15 02/03/25 02:32 Temperature Pulse Rate 74 71 Respiratory Rate 17 19 Blood Pressure 140/65 Pulse Oximetry 93 92 92 Oxygen Delivery Oxygen Flow Rate 02/03/25 02:45 02/03/25 03:00 02/03/25 03:01 Temperature Pulse Rate 75 72 73 Respiratory Rate 19 20 22 H Blood Pressure 116/65 104/68 Pulse Oximetry 94 95 94 Oxygen Delivery Oxygen Flow Rate 02/03/25 03:02 02/03/25 03:15 02/03/25 03:30 Temperature Pulse Rate 74 72 68 Respiratory Rate 20 22 H 19 Blood Pressure Pulse Oximetry 94 96 96 Oxygen Delivery Oxygen Flow Rate 02/03/25 03:31 02/03/25 03:45 02/03/25 04:00 Temperature Pulse Rate 68 72 Respiratory Rate 22 H 17 Blood Pressure 116/62 Pulse Oximetry 96 97 97 Oxygen Delivery Oxygen Flow Rate 02/03/25 04:01 02/03/25 04:02 02/03/25 04:15 Temperature Pulse Rate 77 79 76 Respiratory Rate 24 H 22 H 19 Blood Pressure 122/73 Pulse Oximetry 98 97 97 Oxygen Delivery Oxygen Flow Rate 02/03/25 04:30 02/03/25 04:31 02/03/25 04:45 Temperature Pulse Rate 68 73 78 Respiratory Rate 16 16 20 Blood Pressure 130/72 Pulse Oximetry 97 97 98 Oxygen Delivery Oxygen Flow Rate 02/03/25 05:00 02/03/25 05:01 02/03/25 05:13 Temperature Pulse Rate 81 75 77 Respiratory Rate 21 H 21 H 24 H Blood Pressure 122/67 122/67 Pulse Oximetry 99 100 98 Oxygen Delivery Oxygen Flow Rate 02/03/25 05:59 Temperature 98.4 F Pulse Rate 68 Respiratory Rate 20 Blood Pressure 116/56 L Pulse Oximetry 99 Oxygen Delivery Oxygen Flow Rate Exam Narrative: Gen - ill appearing male in no acute respiratory distress who is nontoxic- appearing lying semi recumbent in bed. HEENT - normocephalic. Atraumatic. Pupils equal round and reactive. Extraocular motions intact. Sclera clear and anicteric. Nares patent. Oropharynx was clear. Moist mucous membranes. Tongue was midline. No facial asymmetry. Neck - neck was supple. No dominant adenopathy, thyromegaly or masses. 2+ carotid upstrokes without bruits. Chest -expiratory wheezing appreciated in all lung castaneda, no diminished lung sounds or crackles. CV - heart was regular rate and rhythm. S1-S2. No murmurs gallops or rubs. Abd - abdomen was soft. Nontender. Nondistended. Positive bowel sounds. No organomegaly or masses. Ext - no clubbing, cyanosis or edema. 2+ DP pulses bilaterally. Neuro - patient is alert and oriented x4. Strength is 5/5 in both upper and lower extremities. Cranial nerves 2-12 are intact. Speech is clear. Psych - normal mood and affect. Patient is pleasant and cooperative. Skin - warm and dry. No rashes noted. H&P: Results Labs Labs: Short CBC 02/02/25 Range/Units 23:49 WBC 8.4 (4.5-10.0) K/mm3 Hgb 14.0 (14.0-18.0) g/dL Hct 42.7 (42.0-52.0) % Plt Count 229 (150-375) k/mm3 [facility] 02/02/25 23:49 Sodium 139 Potassium 4.1 Chloride 104 Carbon Dioxide 30 BUN 17 Creatinine 0.64 L Glucose 179 H Calcium 8.8 Cardiac Enzymes 02/02/25 02/03/25 Range/Units 23:49 04:09 Troponin I < 0.012 0.013 (0.000-0.034) ng/mL Liver Function 02/02/25 Range/Units 23:49 Total Bilirubin 0.4 (0.2-1.3) mg/dL AST 27 (17-59) U/L ALT 33 (6-50) U/L Alkaline Phosphatase 84 (38-126) U/L Albumin 4.1 (3.5-5.1) g/dL Assessment and Plan Assessment and plan (1) Pneumothorax: Code(s): J93.9 - Pneumothorax, unspecified Status: Acute Assessment and Plan: * CXR: Stable small right apical pneumothorax. Known pulmonary nodule not well seen radiographically on the current exam. * CT Chest: Small right hydropneumothorax.Stable 2.6 x 1.8 cm superior segment right lower lobe pulmonary nodule. * Known apical right-sided pneumothorax post biopsy of the right lower lobe * Currently on 4 L nasal cannula, with O2 saturations around 93% * Pulmonology consulted as he follows with Dr. Diggs * Dr. Diggs recommends transfer to center for higher care, recommended [facility] as he was going to recommend the pt follow up with his office regarding new diagnosis of Adenoidcarcinoma * [facility] transfer center contacted, pt has been accepted at [facility] * Pending transfer at this time (2) Adenocarcinoma, lung: Code(s): C34.90 - Malignant neoplasm of unspecified part of unspecified bronchus or lung Status: Acute Assessment and Plan: * New diagnosis last week, had repeat CT-guided biopsy performed on 01/30 * 2.5 x 1.7 nodule in superior segment of right lower lobe * Follows with Dr. Diggs of pulmonology * Pt to require transfer to tertiary center for higher level of care * Pt has been accepted at [facility] (3) COPD exacerbation: Code(s): J44.1 - Chronic obstructive pulmonary disease with (acute) exacerbation Status: Acute Assessment and Plan: * Monitor vital signs, I&Os, neuro status and patient is a fall risk * Monitor serum electrolytes, cultures and CBC * Monitor Oxygen saturation, Oxygen via NC; wean oxygen as tolerated, keep SpO2 greater than 88% * Send sputum cultures if possible * Duonebz q6H * Solu-Medrol 40 mg IVq12H * CXR: Stable small right apical pneumothorax. * Pulmonology consult pending (4) Hyperlipidemia: Code(s): E78.5 - Hyperlipidemia, unspecified Status: Acute Assessment and Plan: * Continue atorvastatin 80 mg (5) Hypertension: Code(s): I10 - Essential (primary) hypertension Status: Acute Assessment and Plan: * Continue lisinopril 30 mg and metoprolol 50 mg (6) Obstructive sleep apnea: Code(s): G47.33 - Obstructive sleep apnea (adult) (pediatric) Status: Acute Assessment and Plan: * AVAPS to be ordered (7) Atrial fibrillation with RVR: Code(s): I48.91 - Unspecified atrial fibrillation Status: Acute Assessment and Plan: * New diagnosis during recent hospitalization and 11/19 * Started on Cardizem drip, eventually switched to diltiazem p.o. * Restart home medications Quality VTE Prophylaxis VTE prophylaxis: mechanical ordered
[2025-02-03 08:09] LABS: Troponin I < 0.012 ng/mL (0.000-0.034)
[2025-02-03] MEDS: IPRATROPIUM 0.5 MG/ALBUTEROL SULFATE 2.5 MG AMPUL.NEB 3 ML INHALATION ×2 (14:24→20:33)
[2025-02-03] MEDS: lisinopriL 10 MG TABLET 30 MG PO (15:12)
[2025-02-03] MEDS: OMEGA 3 POLYUNSAT FATTY ACIDS 1 GM CAP PO (15:12)
[2025-02-03] MEDS: dilTIAZem HCL CD 180 MG CAP.24HR 360 MG PO (15:13)
[2025-02-03] MEDS: CHOLECALCIFEROL 5,000 UNITS TABLET 5000 UNITS PO (15:13)
[2025-02-03] MEDS: PANTOPRAZOLE 40 MG TABLET PO (15:13)
[2025-02-03] MEDS: NICOTINE (*PBKC) 21 MG PATCH 1 PATCH TRANSDERM (15:16)
--- NOTE | 2025-02-03 17:01 | PM.TDS ---
Transfer Discharge Sum: Prov Provider Date of admission: 02/03/25 08:59 Primary care physician: Vincenzo Salazar MD Admitting clinician: Wilner Begum PA-C Consults: 02/03/25 09:52 Consult to Physician Routine Comment: Consulting Provider: Jay Jay Diggs olive packer/MD group to consult: Pulmonology Reason for consultation: COPD, pneumothorax Has provider been notified: Yes Receiving physician/facility: Dr. Jeffery, [facility] DS: Admitting Diagnosis Discharge Date 02/03/2025 Admitting Diagnosis Pneumothorax DS: Discharge Diagnosis Discharge Diagnosis (1) Pneumothorax: Code(s): J93.9 - Pneumothorax, unspecified Status: Acute Assessment and Plan: CXR: Stable small right apical pneumothorax. Known pulmonary nodule not well seen radiographically on the current exam. CT Chest: Small right hydropneumothorax.Stable 2.6 x 1.8 cm superior segment right lower lobe pulmonary nodule. Known apical right-sided pneumothorax post biopsy of the right lower lobe Currently on 4 L nasal cannula, with O2 saturations around 93% Pulmonology consulted as he follows with Dr. Dontae Diggs recommends transfer to center for higher care, recommended [facility] system as he was going to recommend the pt follow up with his office regarding new diagnosis of Adenoidcarcinoma [facility] transfer center contacted, pt has been accepted at [facility] Pending transfer at this time (2) Adenocarcinoma, lung: Code(s): C34.90 - Malignant neoplasm of unspecified part of unspecified bronchus or lung Status: Acute Assessment and Plan: New diagnosis last week, had repeat CT-guided biopsy performed on 01/30 2.5 x 1.7 nodule in superior segment of right lower lobe Follows with Dr. Diggs of pulmonology Pt to require transfer to tertiary center for higher level of care Pt has been accepted at [facility] (3) COPD exacerbation: Code(s): J44.1 - Chronic obstructive pulmonary disease with (acute) exacerbation Status: Acute Assessment and Plan: Monitor vital signs, I&Os, neuro status and patient is a fall risk Monitor serum electrolytes, cultures and CBC Monitor Oxygen saturation, Oxygen via NC; wean oxygen as tolerated, keep SpO2 greater than 88% Send sputum cultures if possible Duonebz q6H Solu-Medrol 40 mg IVq12H CXR: Stable small right apical pneumothorax. Pulmonology consult pending (4) Hyperlipidemia: Code(s): E78.5 - Hyperlipidemia, unspecified Status: Acute Assessment and Plan: Continue atorvastatin 80 mg (5) Hypertension: Code(s): I10 - Essential (primary) hypertension Status: Acute Assessment and Plan: Continue lisinopril 30 mg and metoprolol 50 mg (6) Obstructive sleep apnea: Code(s): G47.33 - Obstructive sleep apnea (adult) (pediatric) Status: Acute Assessment and Plan: AVAPS to be ordered (7) Atrial fibrillation with RVR: Code(s): I48.91 - Unspecified atrial fibrillation Status: Acute Assessment and Plan: New diagnosis during recent hospitalization and 11/19 Started on Cardizem drip, eventually switched to diltiazem p.o. Restart home medications Transfer Discharge Sum: Med Medications Active and Home Medications: Home Medications albuterol sulfate 90 mcg/actuation breath activated powder inhaler 2 inh inhalation Q4H PRN shortness of breath or wheezing #1 ea 09/20/24 [Rx Confirmed 02/03/25] atorvastatin 40 mg tablet 80 mg (2 x 40 mg) PO HS #30 tabs 09/20/24 [Rx Confirmed 02/03/25] lisinopril 30 mg tablet 30 mg PO DAILY #30 tabs 09/20/24 [Rx Confirmed 02/03/25] nebulizer and compressor #1 ea 09/20/24 [Rx Confirmed 02/03/25] tiotropium bromide 18 mcg capsule with inhalation device (Spiriva with HandiHaler) 1 cap inhalation DAILY #30 inhalations 09/20/24 [Rx Confirmed 02/03/25] pantoprazole 40 mg tablet,delayed release 40 mg PO QAM 11/14/24 [History Confirmed 02/03/25] apixaban 5 mg tablet (Eliquis) 5 mg PO Q12HR #60 tabs 11/22/24 [Rx Confirmed 02/03/25] dextrose 40 % oral gel (Glutose-15) 15 g PO PRN PRN Hypoglycemia #30 grams 11/22/24 [Rx Confirmed 02/03/25] guaifenesin 600 mg tablet, extended release 12 hr (Mucus Relief ER) 1,200 mg (2 x 600 mg) PO Q12HR #60 tabs 11/22/24 [Rx Confirmed 02/03/25] metoprolol tartrate 50 mg tablet 50 mg PO Q12HR #60 tabs 11/22/24 [Rx Confirmed 02/03/25] nicotine 21 mg/24 hr daily transdermal patch (Nicoderm CQ) 1 patch transdermal DAILY #28 ea 11/22/24 [Rx Confirmed 02/03/25] cholecalciferol (vitamin D3) 125 mcg (5,000 unit) tablet (Vitamin D3) 125 mcg PO DAILY 01/13/25 [History Confirmed 02/03/25] diltiazem HCl 360 mg capsule,extended release 24 hr (Cardizem CD) 360 mg PO DAILY 01/13/25 [History Confirmed 02/03/25] omega 1-bmd-uyz-fish oil 1,200 mg (144 mg-216 mg) capsule (Fish Oil) 1 cap PO DAILY 01/13/25 [History Confirmed 02/03/25] levalbuterol HCl 1.25 mg/3 mL solution for nebulization 1.25 mg (3 mL) inhalation TID PRN shortness of breath or wheezing #270 vials 01/15/25 [Rx Confirmed 02/03/25] glipizide 5 mg tablet 5 mg PO DAILY #90 tabs 01/23/25 [Rx Confirmed 02/03/25] hydrocodone 5 mg-acetaminophen 325 mg tablet 1 tablet PO Q8H severe pain #30 tabs 01/23/25 [Rx Confirmed 02/03/25] metformin 500 mg tablet 500 mg PO BIDWMEAL #180 tabs 01/23/25 [Rx Confirmed 02/03/25] Active Medications Albuterol (Albuterol Sulfate (*Sp) Aerosol 1 Puff) 2 puff INHALATION Q4HRT PRN PRN Reason: shortness of breath or wheezing Albuterol/Ipratropium (Ipratropium 0.5 Mg/Albuterol Sulfate 2.5 Mg Ampul.Neb 3 Ml) 3 ml INHALATION Q6HRT SASHA Last Admin: 02/03/25 14:24 Dose: 3 ml Atorvastatin Calcium (Atorvastatin 40 Mg Tablet) 80 mg PO HS SASHA Diltiazem HCl (Diltiazem Hcl Cd 180 Mg Cap.24hr) 360 mg PO DAILY SASHA Stop: 03/05/25 14:49 Last Admin: 02/03/25 15:13 Dose: 360 mg Fish Oil ([place] 3 Polyunsat Fatty Acids 1 Gm Cap) 1 gm PO DAILY [facility] Last Admin: 02/03/25 15:12 Dose: 1 gm Glucose (Glucose Oral Gel 15 Gm Of Glucse In 37.5 Gm Tube) 15 gm PO PRN PRN PRN Reason: Hypoglycemia Guaifenesin (Guaifenesin 12 Hr 600 Mg Tabcr) 1,200 mg PO Q12HR [facility] Lactated Ringer's (Lr - Lactated Ringers Iv) 1,000 mls @ 100 mls/hr IV CONT .Q10H [facility] Last Admin: 02/03/25 06:57 Dose: 100 mls/hr Lisinopril (Lisinopril 10 Mg Tablet) 30 mg PO DAILY [facility] Last Admin: 02/03/25 15:12 Dose: 30 mg Methylprednisolone Sodium Succinate (Methylprednisolone Sod Succ 125 Mg Vial) 60 mg IV PUSH Q6HR [facility] Last Admin: 02/03/25 12:16 Dose: 60 mg Metoprolol Tartrate (Metoprolol Tartrate 50 Mg Tab) 50 mg PO Q12HR [facility] Nicotine (Nicotine (*Pbkc) 21 Mg Patch) 1 patch TRANSDERM DAILY [facility] Last Admin: 02/03/25 15:16 Dose: 1 patch Pantoprazole Sodium (Pantoprazole 40 Mg Tablet) 40 mg PO QAM [facility] Last Admin: 02/03/25 15:13 Dose: 40 mg Umeclidinium [place] (Umeclidinium [place] 62.5 Mcg Ellipta) [facility] Vitamin D (Cholecalciferol 5,000 Units Tablet) 5,000 units PO DAILY [facility] Last Admin: 02/03/25 15:13 Dose: 5,000 units Transfer Discharge Sum: Hosp Hospital Course Hospital course: Ronnie Tadeo is a 54 year old male with a past medical history of hypertension, type 2 diabetes mellitus, all, COPD, chronic respiratory failure on home O2, KAL on CPAP, dyslipidemia, morbid obesity, history of tobacco abuse, rheumatoid arthritis who presented to the ER for right axilla pain and shortness of breath. He had a CT-guided biopsy of a lung mass performed on January 30 which resulted in a small right-sided apical pneumothorax. He was discharged but has continued to have sharp pain in the right axilla region. He states he feels as though his shortness of breath has gotten worse despite chronic 4 L nasal cannula use. Denies any recent illnesses, fevers, chills, sputum production nausea/vomiting, midline chest pain, abdominal pain or lower extremity pain/edema. Denies any recent travel. Reports that walking or exertion makes the shortness of breath or pain worse. States that at rest he feels completely fine. No tenderness to palpation to the chest wall. There is expiratory wheezing in all lung castaneda but no diminished lung sounds, crackles, or rhonchi. A&O x4, denies any weakness or somnolence. Afebrile, white blood cell count 8.4, creatinine 0.64 VBG 7.36/49/64. COVID, influenza, RSV RT PCR assay negative. Chest x-ray on 02/03 showed stable small right apical pneumothorax and known pulmonary nodule. Chest CT showed small right hydropneumothorax and stable 2.6 x 1.8 cm superior segment right lower lobe pulmonary nodule. Pulmonology consulted and they recommend transfer to a [facility] in case the patient becomes unstable. [facility] has been contacted and patient has been accepted to [facility]. Pulmonology was consulted regarding underlying adenocarcinoma of the lung and pneumothorax. Dr. Diggs pulmonology recommended that the patient be transferred to higher level of care facility in the event that the patient becomes hemodynamically unstable and deteriorates and that if he he would need an emergent chest tube that he would be at a facility that can facilitate this. This was discussed with the patient who was in agreement for the transfer. [facility] present contacted and the patient was accepted at [facility]. Time Spent with Patient Time attestation: Total time spent providing and/or coordinating transfer services: 45 Exam Narrative: Gen - ill appearing male in no acute respiratory distress who is nontoxic-appearing lying semi recumbent in bed. HEENT - normocephalic. Atraumatic. Pupils equal round and reactive. Extraocular motions intact. Sclera clear and anicteric. Nares patent. Oropharynx was clear. Moist mucous membranes. Tongue was midline. No facial asymmetry. Neck - neck was supple. No dominant adenopathy, thyromegaly or masses. 2+ carotid upstrokes without bruits. Chest -expiratory wheezing appreciated in all lung castaneda, no diminished lung sounds or crackles. CV - heart was regular rate and rhythm. S1-S2. No murmurs gallops or rubs. Abd - abdomen was soft. Nontender. Nondistended. Positive bowel sounds. No organomegaly or masses. Ext - no clubbing, cyanosis or edema. 2+ DP pulses bilaterally. Neuro - patient is alert and oriented x4. Strength is 5/5 in both upper and lower extremities. Cranial nerves 2-12 are intact. Speech is clear. Psych - normal mood and affect. Patient is pleasant and cooperative. Skin - warm and dry. No rashes noted. DS: Data Data Completed and Pending Labs on day of discharge: Labs from last 24 hours 02/03/25 02/03/25 02/03/25 07:27 04:09 01:39 WBC RBC Hgb Hct MCV MCH MCHC RDW Plt Count MPV Immature Gran % (Auto) Neut % (Auto) Lymph % (Auto) [place] % (Auto) Eos % (Auto) Baso % (Auto) Lymph # (Auto) [place] # (Auto) Eos # (Auto) Baso # (Auto) Abs Immat Gran (auto) Absolute Neuts (auto) Absolute Nucleated RBC Nucleated RBC % PT INR APTT VBG pH 7.360 VBG pCO2 48.9 H VBG pO2 63.8 H VBG HCO3 27.0 O2 Delivery Device Other device O2 Liters/Min 8.0 FiO2 52 Sodium Potassium Chloride Carbon Dioxide Anion Gap BUN Creatinine Estim Creat Clear Calc Estimated GFR Glucose Calcium Total Bilirubin AST ALT Alkaline Phosphatase Troponin I < 0.012 0.013 Total Protein Albumin Lipase Influenza A (RT-PCR) Negative Influenza B (RT-PCR) Negative RSV (RT-PCR) Negative SARS-CoV-2 RNA (RT-PCR) Negative 02/02/25 23:49 WBC 8.4 RBC 4.31 L Hgb 14.0 Hct 42.7 MCV 99.1 MCH 32.5 MCHC 32.8 RDW 12.4 Plt Count 229 MPV 10.2 Immature Gran % (Auto) 0.4 Neut % (Auto) 60.2 Lymph % (Auto) 22.6 [place] % (Auto) 9.5 H Eos % (Auto) 6.8 H Baso % (Auto) 0.5 Lymph # (Auto) 1.90 [place] # (Auto) 0.8 H Eos # (Auto) 0.6 H Baso # (Auto) 0.0 Abs Immat Gran (auto) 0.03 Absolute Neuts (auto) 5.1 Absolute Nucleated RBC 0.000 Nucleated RBC % 0.0 PT 13.6 INR 1.0 APTT 34.8 VBG pH VBG pCO2 VBG pO2 VBG HCO3 O2 Delivery Device O2 Liters/Min FiO2 Sodium 139 Potassium 4.1 Chloride 104 Carbon Dioxide 30 Anion Gap 5 BUN 17 Creatinine 0.64 L Estim Creat Clear Calc 191 Estimated GFR > 60 Glucose 179 H Calcium 8.8 Total Bilirubin 0.4 AST 27 ALT 33 Alkaline Phosphatase 84 Troponin I < 0.012 Total Protein 8.0 Albumin 4.1 Lipase 107 Influenza A (RT-PCR) Influenza B (RT-PCR) RSV (RT-PCR) SARS-CoV-2 RNA (RT-PCR)
[2025-02-03 17:31] LABS: Glucose Point of Care 288 mg/dl (65-105)
--- NOTE | 2025-02-03 18:13 | PM.CNPUL ---
Assessment and Plan Assessment and plan (1) Pneumothorax: Code(s): J93.9 - Pneumothorax, unspecified Status: Acute Assessment and Plan: Patient has a pneumothorax after his CT-guided biopsy on 01/30/2025. Pneumothorax has persisted. Plan: Patient should be transferred to higher level of care facility so that if he should deteriorate an emergent chest tube can be placed. These services are not available at [facility]. I discussed this with the patient who is in agreement. Discussed with Dr. Begum who will arrange transfer. In the meantime I have increased his nasal cannula oxygen to 6 L in order to maintain his saturations in the high 90. Will check chest x-ray in the morning. will follow with you. (2) COPD exacerbation: Code(s): J44.1 - Chronic obstructive pulmonary disease with (acute) exacerbation Status: Acute Assessment and Plan: Patient with change in his phlegm volume, change in his phlegm color, shortness of breath, wheezing. Agree with treatment for COPD exacerbation. Plan: The patient is currently feeling better. I will attempt to Minimize his steroids so that he can better heel is pneumothorax and will discontinue his IV steroids and place him on prednisone 40 mg p.o. q.day starting tomorrow. I will place him on DuoNebs q.6 hours. Will add levofloxacin 750 mg p.o. q.day to treat for tracheobronchitis. No evidence of focal infiltrates on his CT scan. (3) Adenocarcinoma, lung: Code(s): C34.90 - Malignant neoplasm of unspecified part of unspecified bronchus or lung Status: Acute Assessment and Plan: patient was referred to Oncology, Dr. Lorezno. Would call [facility] as he is affiliated with this hospital. History of Present Illness History of Present Illness Consult date: 02/03/25 Chief complaint: copd exac Narrative: 02/03/2025: This is a new pulmonary consult for COPD exacerbation with pneumothorax. 54-year-old with history of diabetes, hypertension, hyperlipidemia, COPD, rheumatoid arthritis, lung cancer. Patient had a CT-guided biopsy of the lung on 01/30/2025 with a right pneumothorax. He was discharged home on 4 L oxygen. Biopsy returned with adenocarcinoma and he was referred to Oncology, Dr. Lorenzo as an outpatient. Patient continued to develop right-sided chest pain and presented to the emergency room on 02/02/2025 with Blood pressure 129/75, heart rate 72, respirations 17 and saturations on 4 L 93%. He had bilateral wheezing and described his chest pain at 9/10. Afebrile, white blood cell count 8.4, creatinine 0.64 VBG 7.36/49/64. COVID, influenza, RSV RT PCR assay negative. Patient has CT scan of the chest shows small right pneumothorax with no focal infiltrates or consolidation. Right lower lobe mass persisted. 02/03/2025: Currently the patient tells me he is doing much better. Patient did tell me that he had increased phlegm production and change in color is from from clear to light green after his biopsy. He has no shortness of breath at rest, his right-sided chest pain is now 1 of 10. On 4 L nasal cannula saturations were 94%. He had wheezes bilaterally. DATA: CT Scan of the Chest without Contrast: Clinical Indication: Dyspnea, pneumothorax Technique: Contiguous sections were acquired throughout the chest without intravenous contrast. Dose reduction technique was used on this scan by utilizing automated exposure control and iterative reconstruction technique. The dose-length product (DLP) was 987.63 mGy-cm. COMPARISON: 01/22/2025 Findings: There is no evidence of any significant mediastinal, hilar or axillary lymphadenopathy. The mediastinal soft tissues appear normal. No pericardial effusion. Minimal right pleural effusion present. No left pleural effusion. 2.6 x 1.8 cm pulmonary nodule is present in right lower lobe is present, with focal central cavitation or postbiopsy change. Very small right pneumothorax present. There is mild paraseptal emphysema. Images through the upper abdomen reveal no abnormalities. Impression: Small right hydropneumothorax. Stable 2.6 x 1.8 cm superior segment right lower lobe pulmonary nodule. Correlate with prior biopsy results. Review of Systems Constitutional: Constitutional: Reports no additional constitutional complaints Eyes: Eyes: Reports no additional eye complaints ENT: Reports system reviewed and no additional complaints, except as documented Cardiovascular: Cardiovascular: Reports no additional cardiovascular complaints Respiratory: Respiratory: Reports no additional respiratory complaints Gastrointestinal: Gastrointestinal: Reports no additional gastrointestinal complaints Musculoskeletal: Musculoskeletal: Reports no additional musculoskeletal complaints Neurologic: Reports system reviewed and no additional complaints, except as documented Psychiatric: Psychiatric: Reports no additional psychiatric complaints Endocrine: Endocrine: Reports no additional endocrine complaints Hematologic/Lymphatic: Hematologic/Lymphatic: Reports no additional hematologic/lymphatic complaints Allergic/Immunologic: Allergic/Immunologic: Reports no additional allergic/immunologic complaints [facility] Past Medical History Medical History Diabetes Chronic obstructive pulmonary disease Hyperlipidemia Hypertension Seasonal allergies Rheumatoid arthritis Sleep apnea Seizures Tobacco use Surgical History Surgical History History of right knee surgery Has had 5 surgeries total including ACL and meniscus repairs History of left knee surgery 1991-Dr. Erwin, meniscus repair, repair meniscus again by Dr. Mccloud Family History Family History Mother Malignant neoplasm Hypertension Diabetes mellitus Arthritis Father Diabetes mellitus Social History Social History Social History: Surrogate medical decision maker: Yenifer Escobarbreana, spouse. Code status: Full code. Smoking packs per day: 1.5 Smoking cigarettes per day: 30.0 Years smoked: 45 Smoking pack-years: 67.50 Smoking status: Current every day smoker Tobacco type: cigarettes Second hand tobacco smoke exposure: Yes Alcohol intake: former Alcohol use details: rare Substance use: former Substance use type: marijuana Last use: 09/12/24 Do You Feel Safe in your Home?: Yes Lack of Transportation: No Lack of Food: Never True Current Housing: I Have Housing Concerned About Future Housing: No Difficulty Paying Gas/Electric Bills: No Difficulty Paying for Meds: No Currently Unemployed: No Education: Trade/Vocational Certificate Difficulty w/ Childcare or Family Care: No Living arrangements: with family Occupation/Education: occupation Spiritual care concerns: No Meds Home Medications and Allergies Home Medications Medication Instructions Recorded Confirmed Type albuterol sulfate 90 mcg/actuation 2 inh inhalation Q4H PRN shortness 09/20/24 02/03/25 Rx breath activated powder inhaler of breath or wheezing #1 ea atorvastatin 40 mg tablet 80 mg (2 x 40 mg) PO HS #30 tabs 09/20/24 02/03/25 Rx lisinopril 30 mg tablet 30 mg PO DAILY #30 tabs 09/20/24 02/03/25 Rx nebulizer and compressor #1 ea 09/20/24 02/03/25 Rx tiotropium bromide 18 mcg capsule 1 cap inhalation DAILY #30 09/20/24 02/03/25 Rx with inhalation device (Spiriva inhalations with HandiHaler) pantoprazole 40 mg tablet,delayed 40 mg PO QAM 11/14/24 02/03/25 History release apixaban 5 mg tablet (Eliquis) 5 mg PO Q12HR #60 tabs 11/22/24 02/03/25 Rx dextrose 40 % oral gel (Glutose-15) 15 g PO PRN PRN Hypoglycemia #30 11/22/24 02/03/25 Rx grams guaifenesin 600 mg tablet, 1,200 mg (2 x 600 mg) PO Q12HR #60 11/22/24 02/03/25 Rx extended release 12 hr (Mucus tabs Relief ER) metoprolol tartrate 50 mg tablet 50 mg PO Q12HR #60 tabs 11/22/24 02/03/25 Rx nicotine 21 mg/24 hr daily 1 patch transdermal DAILY #28 ea 11/22/24 02/03/25 Rx transdermal patch (Nicoderm CQ) cholecalciferol (vitamin D3) 125 125 mcg PO DAILY 01/13/25 02/03/25 History mcg (5,000 unit) tablet (Vitamin D3) diltiazem HCl 360 mg 360 mg PO DAILY 01/13/25 02/03/25 History capsule,extended release 24 hr (Cardizem CD) omega 0-jnk-jwr-fish oil 1,200 mg 1 cap PO DAILY 01/13/25 02/03/25 History (144 mg-216 mg) capsule (Fish Oil) levalbuterol HCl 1.25 mg/3 mL 1.25 mg (3 mL) inhalation TID PRN 01/15/25 02/03/25 Rx solution for nebulization shortness of breath or wheezing #270 vials glipizide 5 mg tablet 5 mg PO DAILY #90 tabs 01/23/25 02/03/25 Rx hydrocodone 5 mg-acetaminophen 325 1 tablet PO Q8H severe pain #30 01/23/25 02/03/25 Rx mg tablet tabs metformin 500 mg tablet 500 mg PO BIDWMEAL #180 tabs 01/23/25 02/03/25 Rx Allergies Allergy/AdvReac Type Severity Reaction Status Date / Time codeine AdvReac Unknown nightmares, Verified 02/02/25 23:48 extreme internal ear itching Vital Signs Vital Signs - 24 hr 02/02/25 23:27 02/02/25 23:27 02/02/25 23:27 Temperature 37.5 C Pulse Rate 72 70 Respiratory Rate 17 18 Blood Pressure 129/75 Pulse Oximetry 93 94 Oxygen Delivery Nasal Cannula Oxygen Flow Rate 4 4 Fraction of Inspired Oxygen 02/02/25 23:49 02/02/25 23:54 02/03/25 00:01 Temperature Pulse Rate 71 68 69 Respiratory Rate 15 18 20 Blood Pressure 153/89 H 115/100 H Pulse Oximetry 92 94 95 Oxygen Delivery Oxygen Flow Rate Fraction of Inspired Oxygen 02/03/25 00:02 02/03/25 00:15 02/03/25 00:30 Temperature Pulse Rate 69 Respiratory Rate 19 20 24 H Blood Pressure Pulse Oximetry 93 94 93 Oxygen Delivery Oxygen Flow Rate Fraction of Inspired Oxygen 02/03/25 00:42 02/03/25 01:07 02/03/25 01:30 Temperature Pulse Rate 93 67 Respiratory Rate 17 24 H Blood Pressure Pulse Oximetry 99 96 Oxygen Delivery Non-Rebreather Mask Oxygen Flow Rate 15 Fraction of Inspired Oxygen 02/03/25 01:31 02/03/25 01:45 02/03/25 02:00 Temperature Pulse Rate 71 70 Respiratory Rate 26 H 25 H 18 Blood Pressure 120/74 Pulse Oximetry 97 96 93 Oxygen Delivery Oxygen Flow Rate Fraction of Inspired Oxygen 02/03/25 02:01 02/03/25 02:15 02/03/25 02:32 Temperature Pulse Rate 74 71 Respiratory Rate 17 19 Blood Pressure 140/65 Pulse Oximetry 93 92 92 Oxygen Delivery Oxygen Flow Rate Fraction of Inspired Oxygen 02/03/25 02:45 02/03/25 03:00 02/03/25 03:01 Temperature Pulse Rate 75 72 73 Respiratory Rate 19 20 22 H Blood Pressure 116/65 104/68 Pulse Oximetry 94 95 94 Oxygen Delivery Oxygen Flow Rate Fraction of Inspired Oxygen 02/03/25 03:02 02/03/25 03:15 02/03/25 03:30 Temperature Pulse Rate 74 72 68 Respiratory Rate 20 22 H 19 Blood Pressure Pulse Oximetry 94 96 96 Oxygen Delivery Oxygen Flow Rate Fraction of Inspired Oxygen 02/03/25 03:31 02/03/25 03:45 02/03/25 04:00 Temperature Pulse Rate 68 72 Respiratory Rate 22 H 17 Blood Pressure 116/62 Pulse Oximetry 96 97 97 Oxygen Delivery Oxygen Flow Rate Fraction of Inspired Oxygen 02/03/25 04:01 02/03/25 04:02 02/03/25 04:15 Temperature Pulse Rate 77 79 76 Respiratory Rate 24 H 22 H 19 Blood Pressure 122/73 Pulse Oximetry 98 97 97 Oxygen Delivery Oxygen Flow Rate Fraction of Inspired Oxygen 02/03/25 04:30 02/03/25 04:31 02/03/25 04:45 Temperature Pulse Rate 68 73 78 Respiratory Rate 16 16 20 Blood Pressure 130/72 Pulse Oximetry 97 97 98 Oxygen Delivery Oxygen Flow Rate Fraction of Inspired Oxygen 02/03/25 05:00 02/03/25 05:01 02/03/25 05:13 Temperature Pulse Rate 81 75 77 Respiratory Rate 21 H 21 H 24 H Blood Pressure 122/67 122/67 Pulse Oximetry 99 100 98 Oxygen Delivery Oxygen Flow Rate Fraction of Inspired Oxygen 02/03/25 05:59 02/03/25 08:00 02/03/25 08:20 Temperature 36.9 C Pulse Rate 68 Respiratory Rate 20 Blood Pressure 116/56 L Pulse Oximetry 99 91 97 Oxygen Delivery Nasal Cannula Non-Rebreather Mask Oxygen Flow Rate 4 15 Fraction of Inspired Oxygen 100 02/03/25 14:00 02/03/25 14:24 02/03/25 14:24 Temperature 36.4 C Pulse Rate 101 H 104 H Respiratory Rate 20 20 Blood Pressure 162/72 H Pulse Oximetry 93 92 Oxygen Delivery Nasal Cannula Oxygen Flow Rate 4 Fraction of Inspired Oxygen 36 02/03/25 14:29 Temperature Pulse Rate 107 H Respiratory Rate 20 Blood Pressure Pulse Oximetry Oxygen Delivery Oxygen Flow Rate Fraction of Inspired Oxygen Exam Const: General: cooperative, healthy appearing and comfortable Orientation/consciousness: oriented to person, oriented to place and oriented to time HENMT: Head: normal to inspection Ears: hearing grossly normal bilaterally Eyes: General: appearance normal, both eyes and all related structures Neck: Neck: normal visual inspection Chest: Chest palpation & inspection: normal inspection of the chest Resp: Effort & Inspection: normal respiratory effort and able to speak in complete sentences Auscultation: no crackles, no rales, no rhonchi, wheezes and lung sounds not diminished Cardio: Jugular venous distension: no JVD GI: Inspection: normal to inspection GI Palp: No abdominal tenderness Skin: General skin exam: normal color Neuro: General: oriented to person, oriented to place and oriented to time Extrem: General: normal to inspection Psych: Appearance: grossly normal Results Laboratory Findings 02/02/25 23:49 02/02/25 23:49 ABG, PT/INR, D-dimer: PT/INR, D-dimer PT 13.6 Seconds (11.1-14.7) 02/02/25 23:49 INR 1.0 02/02/25 23:49 Abnormal lab findings: Abnormal Labs 02/02/25 02/03/25 02/03/25 23:49 01:39 16:47 RBC 4.31 L [place] % (Auto) 9.5 H Eos % (Auto) 6.8 H [place] # (Auto) 0.8 H Eos # (Auto) 0.6 H VBG pCO2 48.9 H VBG pO2 63.8 H Creatinine 0.64 L Glucose 179 H POC Capillary Glucose 288 H Diagnostic Findings Additional studies: ITS Impressions Chest X-Ray 02/03/25 06:20 Impression: Stable small right apical pneumothorax. Known pulmonary nodule not well seen radiographically on the current exam. Chest CT 02/03/25 06:44 Impression: Small right hydropneumothorax. Stable 2.6 x 1.8 cm superior segment right lower lobe pulmonary nodule. Correlate with prior biopsy results.
[2025-02-03 20:03] LABS: Glucose Point of Care 340 mg/dl (65-105)
[2025-02-03] MEDS: METOPROLOL TARTRATE 50 MG TAB PO (20:19)
[2025-02-03] MEDS: levoFLOXacin 750 MG/D5W 150 ML 750 MG/150 ML BAG 100 MG IVPB (20:19)
[2025-02-03] MEDS: guaiFENesin 12 HR 600 MG TABCR 1200 MG PO (20:19)
[2025-02-03] MEDS: ATORVASTATIN 40 MG TABLET 80 MG PO (20:19)
[2025-02-03] MEDS: INSULIN ASPART (*BKC) 100 UNITS/ML 6 UNITS SUB-Q (20:24)
--- NOTE | 2025-02-03 22:02 | PC.NURSE ---
called report to gibson doty at [facility]. notified patient of transfer ems notified. all questions answered for patient
[2025-02-04 01:36] VITALS: PULSE 92; RESP 20
[2025-02-04] MEDS: IPRATROPIUM 0.5 MG/ALBUTEROL SULFATE 2.5 MG AMPUL.NEB 3 ML INHALATION (01:36)
[2025-02-04 01:48] VITALS: PULSE 85; RESP 20
== END 2025-02-04 02:54 | disposition short-term general hospital (02) | DRG 200 ==
LOC: ANHED 02-03 04:42 → ANH3MEDSUR 02-03 04:48
PROVIDERS: Admitting Provider Internal Medicine; Emergency Provider Emergency Medicine; PCP Family Medicine; Visit Provider Physician Assistant
DX: J95.811 Postprocedural pneumothorax (principal); C34.31 Malignant neoplasm of lower lobe, right bronchus or lung; J96.10 Chronic respiratory failure, unspecified whether with hypoxia or hypercapnia; J44.1 Chronic obstructive pulmonary disease with (acute) exacerbation; I10 Essential (primary) hypertension; E11.9 Type 2 diabetes mellitus without complications; E78.5 Hyperlipidemia, unspecified; E66.9 Obesity, unspecified; M06.9 Rheumatoid arthritis, unspecified; G47.33 Obstructive sleep apnea (adult) (pediatric); F17.210 Nicotine dependence, cigarettes, uncomplicated; Z20.822 Contact with and (suspected) exposure to COVID-19; Z99.81 Dependence on supplemental oxygen
CPT/HCPCS: 36415; 71045; 71250; 80053; 82803; 82948; 83690; 84484; 85025; 85610; 85730; 87637; 93005; 94640; 96374; 99285; A9270; G0378; J1100; J1815; J1956; J2919; J7120